=== PATIENT | male | born 1950 | race Caucasian/White ===

== ENCOUNTER 2017-06-01 14:16 | Emergency (ER) | payer MEDICARE, SELFPAY ==
[2017-06-01 14:17] VITALS: BP 170/78; PULSE 68; RESP 15; TEMP 36.8; O2SAT 97; BMI 23.8
--- NOTE | 2017-06-01 15:07 | CT_ITS ---
STUDY: CT BRAIN WITHOUT CONTRAST REASON FOR EXAM: Male, 67 years old. Dizziness following a recent fall. RADIATION DOSAGE (If Supplied By Facility): CTDIvol = ( 44.99 ) mGy, DLP = ( 728.62 ) mGycm TECHNIQUE: Transaxial CT imaging of the brain was performed without administration of intravenous contrast material. Individualized dose optimization techniques were used for this CT. COMPARISON: Comparison is made with prior study dated December 31, 2014. FINDINGS: Normal soft tissue structures. Normal calvarium. There is mild cerebral atrophy with widening of the extra-axial spaces and ventricular dilatation. Normal white matter tracts of the cerebral hemispheres. Normal basal ganglia and thalami. Normal brainstem. There is mild cerebellar atrophy. There is no intracranial hemorrhage. There are no findings of an acute ischemic infarction. Normal visualized paranasal sinuses. CT/Brain/Head without Contrast IMPRESSION: Chronic involutional changes of the brain. Electronically Signed: Earl Lowe MD at 16:00 EST Tel [phone], Service support ,
--- NOTE | 2017-06-01 15:07 | EKG12_ITS ---
Test Reason : CP Blood Pressure : / mmHG Vent. Rate : 060 BPM Atrial Rate : 060 BPM P-R Int : 142 ms QRS Dur : 110 ms QT Int : 420 ms P-R-T Axes : 076 056 045 degrees QTc Int : 420 ms Sinus rhythm with Premature atrial complexes Otherwise normal ECG Confirmed by AFSHIN MARTINEZ, WALT ([id number]), editor newspaper SURYA ACEVES ([id number]) on 06/07/2017 1:54:30 PM Referred By: DMITRY Confirmed By:WALT PEPE MD
--- NOTE | 2017-06-01 15:11 | ED.VISSUMM ---
- ER Visit Summary Date of Service: 06/01/17 Chief Complaint: Dizziness History of Present Illness: The patient is a 67 M presenting with dizziness and spinning sensation. He states it started when he woke up this morning. It is worse when he turns his head or stands. He felt off balance with walking. He denies any numbness or weakness. Denies any vision or speech changes. Denies headache. Denies chest pain or shortness of breath. Denies syncope. He states he has had right ear pain for the past 3 days and thought that this was related. He went to urgent care and they advised him to come to the ED for further evaluation. Physical Examination: Vitals are stable. Patient is afebrile. Alert no acute distress. HEENT exam is unremarkable. TM normal bilaterally Neck is supple. Lungs are clear and equal bilaterally. Heart is regular rate and rhythm. Abdomen is soft nontender nondistended. Extremities are unremarkable. Skin is warm and dry. No focal neurologic deficit. NIH 0 Remainder of exam is unremarkable. Emergency Department Course and Treatment: He was given meclizine p.o. Orthostatics are negative. CBC, chemistries are unremarkable. Troponin is negative. EKG is sinus rhythm rate of 60. CT head shows chronic changes. Patient is feeling improved following meclizine. He is able to ambulate and turn his head without any difficulty. He is given a prescription for meclizine. He is advised to follow up with his primary care physician. Advised return to ED if worsening complaints. Disposition: Discharge home Impression: Positional vertigo This note was generated with [employer] dictation software. It may contain incorrect words, spelling, and punctuation that were not noted in review of the chart prior to signing ED Disposition - Plan for ED Patient: Chief Complaint: Dizziness Referrals: Rudy Delgado MD [Primary Care Provider] -
[2017-06-01 15:35] VITALS: PULSE 55; RESP 15; O2SAT 97
[2017-06-01] MEDS: Meclizine 12.5 MG Tablet 25 MG PO (15:36)
[2017-06-01 15:42] LABS: Absolute Lymphocyte Count 1.05 X10^3/ul (0.83-4.51); Absolute Neutrophil Count 4.5 X10^3/uL (2.0-7.7); Basophil# 0.03 X10^3/uL; Basophil% 0.5 % (0-1); Eosinophil# 0.18 X10^3/uL; Eosinophils% 2.7 % (0-5); Hematocrit 38.9 % (40-54); Hemoglobin 13.1 g/dl (13.0-16.5); Lymphocyte # 1.05 X10^3/ul (4.0); Lymphocyte % 15.8 % (19-41); Mean Corp Hgb Conc 33.7 g/gl (32-36); Mean Corpuscular Hgb 29.8 pg (27.0-32.0); Mean Corpuscular Volume 88.4 fL (80-94); Mean Platelet Vol. 10.4 fl (6.2-12.0); Monocyte# 0.84 X10^3/uL; Monocyte% 12.7 % (0-10); Neutrophil # 4.52 X10^3/uL (2.7-7.7); Platelet Count 212 K/mm3 (150-450); RBC Distribution Width CV 13.2 % (11.6-14.6); White Blood Count 6.6 K/mm3 (4.4-11.0)
[2017-06-01 15:56] LABS: Anion Gap 5 (5-15); BUN 18 mg/dL (7-18); BUN/Creat Ratio 16.8 RATIO (10-20); Calcium,Total 8.7 mg/dL (8.5-10.1); Chloride 108 mmol/L (98-107); Creatinine, Serum 1.07 mg/dL (0.70-1.30); EST Glomerular Filtration Rate 73 mL/min (>60); Est Glom Filt Rate - Afr Amer 88 mL/min (>60); Estimated Creatinine Clearance 63.93 ml/min; Glucose 83 mg/dL (74-106); Sodium Level 141 mmol/L (136-145)
[2017-06-01 16:00] LABS: POSITIVE COUNT NO; POSITIVE DIFFERENTIAL NO; POSITIVE MORPHOLOGY NO
[2017-06-01 16:04] VITALS: BP 148/77; BP 152/84; BP 160/97; PULSE 55; PULSE 57; PULSE 62
--- NOTE | 2017-06-01 16:25 | ED.DEP ---
ED Disposition - Plan for ED Patient: Chief Complaint: Dizziness Instructions: ED BPV Vertigo Prescriptions: Meclizine HCl [Antivert] 25 mg PO 4X/DAY PRN PRN 3 Days #12 tablet PRN Reason: Vertigo Referrals: Rudy Delgado MD [Primary Care Provider] -
[2017-06-01 16:32] VITALS: BP 157/71; PULSE 55; RESP 16; O2SAT 97
== END 2017-06-01 16:39 | disposition home or self-care (01) ==
LOC: ED 16:39
PROVIDERS: Emergency Provider Emergency Medicine
DX: H81.10 Benign paroxysmal vertigo, unspecified ear (principal); J44.9 Chronic obstructive pulmonary disease, unspecified; E78.00 Pure hypercholesterolemia, unspecified; G25.81 Restless legs syndrome
CPT/HCPCS: 70450; 80048; 84484; 85025; 93005; 99284; J7030; J7040; A4216

== ENCOUNTER 2018-02-26 16:44 | Emergency (ER) | payer MEDICARE, SELFPAY ==
[2018-02-26 16:45] VITALS: BP 166/91; PULSE 76; RESP 16; TEMP 35.9; O2SAT 95; BMI 24.2
--- NOTE | 2018-02-26 17:16 | CT_ITS ---
STUDY: CT ABDOMEN AND PELVIS WITHOUT CONTRAST REASON FOR EXAM: Male, 67 years old. Right flank pain x6 days RADIATION DOSAGE (If Supplied By Facility): CTDIvol = ( 7.00 ) mGy, DLP = ( 342.94 ) mGycm TECHNIQUE: Transaxial images were obtained from the dome of the diaphragm to the symphysis pubis without oral contrast, and without intravenous contrast. Sagittal and coronal images were reconstructed. Individualized dose optimization techniques were used for this CT. COMPARISON: None. FINDINGS: Visualized lung bases show underlying emphysema with bleb formation. The visualized portions of the heart are within normal limits. Normal liver. Normal gallbladder and extrahepatic biliary system. Normal spleen. Normal pancreas. Normal bilateral adrenal glands. Normal right kidney. Normal left kidney. Normal visualized stomach. Nondistended fluid-filled small bowel loops are noted consistent with ileus. Normal colon. The appendix is visualized and appears normal. Appendix best seen on coronal recon image 57 There is diffuse atherosclerotic calcification of the abdominal aorta, without a demonstrated aneurysm. Normal inferior vena cava. Normal retroperitoneum. Normal urinary bladder. There are prostatic calcifications. Normal abdominal wall. There are diffuse degenerative changes of the visualized lumbar spine. CT/Abdomen/Pelvis without Cont IMPRESSION: No obstructive uropathy. Small bowel ileus No suspicious solid organ abnormality No CT evidence of an acute inflammatory process, normal appendix visualized Underlying emphysema Electronically Signed: Bipin Raman MD at 17:57 EST , Service support ,
--- NOTE | 2018-02-26 17:19 | ED.DCSUM_ITS ---
- ER Visit Summary Date of Service: 02/26/18 Chief Complaint: Right flank pain History of Present Illness: The patient is a 67 M who presents for 6 days of right flank pain. Patient has been having constant pain in the region of the right thoracic back with episodes of severe sharp pain. He has enlarged p rostate at baseline and has difficulty urinating, but has not noticed a change in his urinary symptoms. No hematuria. No fever, chest pain, abdominal pain, nausea or vomiting, diarrhea. No history of kidney stones. Patient has COPD and has had baseline dyspnea and cough, but no acute changes. Patient tried ibuprofen at home with some relief and 1 dose of his relatives oxycodone for episode of severe pain, which he states did not help. Physical Examination: Vital signs: afebrile, hemodynamically stable, no hypoxia on room air General: well nourished, well developed, in no distress Skin: warm, dry, no rash, no pallor HEENT: normocephalic and atraumatic; PERRL, EOMI, moist mucous membranes Cardiovascular: regular rate and rhythm without murmurs, no peripheral edema, 2+ pulses all distal extremities Respiratory: No increased work of breathing, lungs are diminished, right greater than left, with no adventitious sounds noted Abdominal: Abdomen is soft, no tenderness in the right lower quadrant with normoactive bowel sounds, no guarding or rebound, no masses, negative CVA tenderness, negative rash on the torso MSK: Moves all extremities, no deformities, normal strength Neuro: Awake and alert, oriented ?4. No facial droop, sensation and motor function intact and symmetric Test Results: Abnormal Lab Results 02/26/18 02/26/18 02/26/18 17:00 17:00 18:45 WBC 8.0 RBC 5.09 Hgb 14.9 Hct 44.5 MCV 87.4 MCH 29.3 MCHC 33.5 RDW 13.4 RDW Differential 42.8 Plt Count 241 MPV 10.0 Immature Gran % (Auto) 0.300 Neut % (Auto) 69.6 Lymph % (Auto) 18.6 L [place] % (Auto) 9.6 Eos % (Auto) 1.5 Baso % (Auto) 0.4 Absolute Neuts (auto) 5.6 Absolute Lymphs (auto) 1.49 Total Counted Not Reportable Sodium 141 Potassium 3.7 Chloride 105 Carbon Dioxide 29.0 Anion Gap 7 BUN 19 H Creatinine 0.97 Estim Creat Clear Calc 72.89 Est GFR (MDRD) Af Amer 99 Est GFR (MDRD) Non-Af 82 BUN/Creatinine Ratio 19.6 Glucose 71 L Calcium 9.1 Total Bilirubin 0.60 AST 45 H ALT 51 Alkaline Phosphatase 70 Total Protein 8.2 Albumin 4.1 Globulin 4.1 Albumin/Globulin Ratio 1.0 Urine Color Yellow Urine Clarity Clear Urine pH 6.0 Ur Specific [place] 1.020 Urine Protein 30 H Urine Glucose (UA) Normal Urine Ketones Negative Urine Occult Blood Negative Urine Nitrite Negative Urine Bilirubin Negative Urine Urobilinogen Normal Ur Leukocyte Esterase Negative Urine RBC 0 SEEN Urine WBC 0 SEEN Ur Squamous Epith Cells 0 SEEN Urine Bacteria 0 SEEN Urine Mucus 0 SEEN Clinical Impression(s) from Imaging Studies Abdomen/Pelvis CT 02/26/18 17:16 IMPRESSION: No obstructive uropathy. Small bowel ileus No suspicious solid organ abnormality No CT evidence of an acute inflammatory process, normal appendix visualized Underlying emphysema Electronically Signed: Bipin Raman MD at 17:57 EST , Service support , Medications Given Discontinued Medications Sodium Chloride () 1,000 mls @ 250 mls/hr IV .Q4H DAVIS Last Admin: 02/26/18 17:36 Dose: 250 mls/hr Ketorolac Tromethamine (Toradol) 15 mg IV X1 ONE Stop: 02/26/18 17:17 Last Admin: 02/26/18 17:36 Dose: 15 mg Emergency Department Course and Treatment: Patient presents with 6 days of right-sided flank pain, with intermittent severe episodes. Urinalysis showed no infection and no hematuria. CT flank was performed, which showed emphysematous changes of the lung bases and no sign of ureteral stone or other acute abnormality other than small bowel ileus. This reading was not consistent with patient's physical exam and complaints, as his abdomen was nontender, he is having normal bowel movements, and complaints do not seem consistent with ileus. Patient was reevaluated, and he states his job requires him to rotate his torso back and forth throughout the day, and this makes his pain worse. Patient's reevaluation does seem more musculoskeletal in nature a and is less likely to be intra-abdominal at this time. Patient had resolution of his pain with Toradol. He was walking around the room feeling much better and requesting to be discharged home. Patient was given a prescription for ibuprofen and return precautions. Discharged with symptoms resolved. Treatment Plan: [] Disposition: [] Impression: Right flank strain This note was generated with [employer] dictation software. It may contain incorrect words, spelling, and punctuation that were not noted in review of the chart prior to signing ED Disposition - Plan for ED Patient: Disposition: Home or Assisted Living Chief Complaint: Flank Pain Instructions: ED Flank Pain Uncertain Cause Prescriptions: RX: Ibuprofen 600 mg PO 4X/DAY PRN #30 tablet PRN Reason: Pain Referrals: Michael Arroyo MD [Primary Care Provider] - 3-5 Days if not improving Care Physician,No Primary [NON-STAFF] - Additional Instructions: Use ibuprofen as needed for pain. If you have any worsening of your condition or any new concerning symptoms, please return immediately to the emergency department for another evaluation.
[2018-02-26 17:36] LABS: Absolute Lymphocyte Count 1.49 X10^3/ul (0.83-4.51); Absolute Neutrophil Count 5.6 X10^3/uL (2.0-7.7); Basophil# 0.03 X10^3/uL; Basophil% 0.4 % (0-1); Eosinophil# 0.12 X10^3/uL; Eosinophils% 1.5 % (0-5); Hematocrit 44.5 % (40-54); Hemoglobin 14.9 g/dl (13.0-16.5); Lymphocyte # 1.49 X10^3/ul (4.0); Lymphocyte % 18.6 % (19-41); Mean Corp Hgb Conc 33.5 g/gl (32-36); Mean Corpuscular Hgb 29.3 pg (27.0-32.0); Mean Corpuscular Volume 87.4 fL (80-94); Monocyte# 0.77 X10^3/uL; Monocyte% 9.6 % (0-10); Neutrophil # 5.57 X10^3/uL (2.7-7.7); Neutrophil % 69.6 % (47-70); Platelet Count 241 K/mm3 (150-450); RBC Distribution Width CV 13.4 % (11.6-14.6); RBC Distribution Width SD 42.8 fl (35.1-43.9); Red Blood Count 5.09 M/mm3 (4.6-6.2)
[2018-02-26] MEDS: Ketorolac 30 MG/ML Syringe 15 MG IV (17:36)
[2018-02-26] MEDS: 0.9% Normal Saline 1,000 ML 250 ML IV (17:36)
[2018-02-26 17:38] LABS: POSITIVE COUNT NO; POSITIVE DIFFERENTIAL NO; POSITIVE MORPHOLOGY NO
[2018-02-26 17:45] LABS: AST(SGOT) 45 U/L (15-37); Alanine Aminotransfer ALT/SGPT 51 U/L (16-61); Albumin, Serum 4.1 g/dL (3.2-5.0); Alkaline Phosphatase 70 U/L (45-117); Anion Gap 7 (5-15); BUN 19 mg/dL (7-18); BUN/Creat Ratio 19.6 RATIO (10-20); Calcium,Total 9.1 mg/dL (8.5-10.1); Chloride 105 mmol/L (98-107); Creatinine, Serum 0.97 mg/dL (0.70-1.30); EST Glomerular Filtration Rate 82 mL/min (>60); Est Glom Filt Rate - Afr Amer 99 mL/min (>60); Estimated Creatinine Clearance 72.89 ml/min; Globulin 4.1 g/dL (2.2-4.2); Glucose 71 mg/dL (74-106); Potassium 3.7 mmol/L (3.5-5.1); Protein, Total 8.2 g/dL (6.4-8.2); Sodium Level 141 mmol/L (136-145)
[2018-02-26 18:49] LABS: Bacteria 0 SEEN /hpf (None Seen); Mucous, Urine 0 SEEN /hpf (<or=2+); Red Blood Cells-Urine 0 SEEN /hpf (0-5); Squamous Epithelial Cells - UA 0 SEEN /hpf (0-5); White Blood Cells 0 SEEN /hpf (0-5)
[2018-02-26 19:15] LABS: Glucose, Dipstick Normal (Normal); Ketone-Dipstick Negative (Negative); Leukocyte Esterase-Dipstick Negative /ul (Negative); Nitrite-Dipstick Negative (Negative); Occult Blood-Urine Negative /ul (Negative); Protein-Dipstick 30 mg/dl (Negative); Urine Bilirubin Dipstick Negative (Negative); Urine Urobilinogen Normal (Normal)
[2018-02-26 19:40] LABS: Color, Urine Yellow (Yellow); Urine Clarity Clear (Clear)
[2018-02-26 19:58] VITALS: BP 180/77; PULSE 67; RESP 16; O2SAT 97
--- NOTE | 2018-02-26 20:05 | ED.DEP ---
ED Disposition - Plan for ED Patient: Disposition: Home or Assisted Living Chief Complaint: Flank Pain Instructions: ED Flank Pain Uncertain Cause Prescriptions: Ibuprofen 600 mg PO 4X/DAY PRN #30 tablet PRN Reason: Pain Referrals: Care Physician,No Primary [NON-STAFF] - Michael Arroyo MD [Primary Care Provider] - 3-5 Days if not improving Additional Instructions: Use ibuprofen as needed for pain. If you have any worsening of your condition or any new concerning symptoms, please return immediately to the emergency department for another evaluation.
[2018-02-26 20:24] VITALS: BP 180/85; PULSE 67; RESP 14; O2SAT 97
== END 2018-02-26 20:25 | disposition home or self-care (01) ==
PROVIDERS: Emergency Provider Emergency Medicine; Family Provider Family Medicine; PCP Family Medicine
DX: S39.011A Strain of muscle, fascia and tendon of abdomen, initial encounter (principal); X58.XXXA Exposure to other specified factors, initial encounter; Y93.9 Activity, unspecified; Y92.89 Other specified places as the place of occurrence of the external cause; Y99.9 Unspecified external cause status; J44.9 Chronic obstructive pulmonary disease, unspecified; N40.0 Benign prostatic hyperplasia without lower urinary tract symptoms
CPT/HCPCS: 74176; 80053; 81001; 85025; 96361; 96374; 99283; J7030; A4216

== ENCOUNTER 2018-06-30 12:50 | Emergency (ER) | payer MEDICARE, SELFPAY ==
[2018-06-30 12:50] VITALS: BP 139/73; PULSE 79; RESP 23; TEMP 36.6; O2SAT 95; BMI 23.9
--- NOTE | 2018-06-30 13:08 | EKG12_ITS ---
Test Reason : CP Blood Pressure : / mmHG Vent. Rate : 068 BPM Atrial Rate : 068 BPM P-R Int : 130 ms QRS Dur : 112 ms QT Int : 386 ms P-R-T Axes : 079 067 068 degrees QTc Int : 410 ms Normal sinus rhythm Normal ECG Confirmed by JANES MARTINEZ, EASTON ([id number]), desk editor MERYL CORRIGAN ([id number]) on 07/02/2018 4:20:05 PM Referred By: RU Confirmed By:EASTON MARRERO MD
--- NOTE | 2018-06-30 13:09 | RAD_ITS ---
STUDY: X-RAY CHEST REASON FOR EXAM: Male, 68 years old. Shortness of breath TECHNIQUE: Frontal view of the chest COMPARISON: 12/31/2014 FINDINGS: The lungs are hyperinflated, but clear. There are no pleural effusions. There is no pneumothorax. The heart is normal in size. The visualized osseous structures are within normal limits. RAD/Chest 1 View (Portable) IMPRESSION: No acute thoracic pathology. Electronically Signed: Colin Diop, at 13:41 EDT Tel , Service support ,
[2018-06-30 13:30] VITALS: PULSE 72; RESP 16
[2018-06-30] MEDS: Ipratropium/Albuterol Sulfate 3 ML AMPUL.NEB INHALATION (13:30)
[2018-06-30 13:46] VITALS: BP 127/59; PULSE 65; RESP 16; O2SAT 95; O2SAT 954
[2018-06-30] MEDS: 0.9% Normal Saline 1,000 ML 150 ML IV (13:50)
[2018-06-30] MEDS: Aspirin 81 MG TAB.CHEW 324 MG PO (13:50)
[2018-06-30 13:55] LABS: Absolute Lymphocyte Count 0.59 X10^3/ul (0.83-4.51); Absolute Neutrophil Count 5.8 X10^3/uL (2.0-7.7); Basophil# 0.02 X10^3/uL; Basophil% 0.3 % (0-1); Eosinophil# 0.03 X10^3/uL; Eosinophils% 0.4 % (0-5); Hematocrit 37.2 % (40-54); Hemoglobin 12.5 g/dl (13.0-16.5); Lymphocyte # 0.59 X10^3/ul (4.0); Mean Corp Hgb Conc 33.6 g/gl (32-36); Mean Corpuscular Hgb 29.6 pg (27.0-32.0); Mean Corpuscular Volume 87.9 fL (80-94); Mean Platelet Vol. 10.3 fl (6.2-12.0); Monocyte# 1.01 X10^3/uL; Monocyte% 13.6 % (0-10); Neutrophil # 5.77 X10^3/uL (2.7-7.7); Neutrophil % 77.7 % (47-70); Platelet Count 172 K/mm3 (150-450); RBC Distribution Width CV 13.4 % (11.6-14.6); RBC Distribution Width SD 42.7 fl (35.1-43.9); Red Blood Count 4.23 M/mm3 (4.6-6.2); White Blood Count 7.4 K/mm3 (4.4-11.0)
[2018-06-30 13:56] LABS: Differential Indicated SCAN CRITERIA MET; POSITIVE COUNT NO; POSITIVE DIFFERENTIAL YES; POSITIVE MORPHOLOGY NO
[2018-06-30 14:10] LABS: Anion Gap 5 (5-15); BUN 16 mg/dL (7-18); BUN/Creat Ratio 16.3 RATIO (10-20); Calcium,Total 8.2 mg/dL (8.5-10.1); Chloride 110 mmol/L (98-107); Creatinine, Serum 0.98 mg/dL (0.70-1.30); EST Glomerular Filtration Rate 80 mL/min (>60); Est Glom Filt Rate - Afr Amer 97 mL/min (>60); Estimated Creatinine Clearance 68.83 ml/min; Glucose 91 mg/dL (74-106); Potassium 3.4 mmol/L (3.5-5.1); Sodium Level 138 mmol/L (136-145)
[2018-06-30 14:12] LABS: Differential Comment A
[2018-06-30 14:29] VITALS: BP 133/60; PULSE 69; RESP 15; O2SAT 97
--- NOTE | 2018-06-30 14:51 | ED.DCSUM_ITS ---
- ER Visit Summary Date of Service: 06/30/18 Chief Complaint: [Shortness of breath and chest pain] History of Present Illness: The patient is a 68 M [presents the emergency department with 2-day history of chest pain shortness of breath. Patient states yesterday morning he woke up and had a lot of chest discomfort that he described as pressure without any radiation. Patient felt short of breath with it. Patient states that the symptoms lasted about 20 minutes and then resolved. Patient states that since that time he has been having shortness of breath with activity. Patient also had some chills since yesterday and subjective fever. He has had a cough that at times is productive of some yellow sputum. Patient states that he has a history of COPD and just saw his prosthetic aides teacher 2 days ago and was given a clean bill of health. Patient has a history of high cholesterol also. He does not have any cardiac history. No significant family history of heart disease. Denies recent travel or surgery.] Physical Examination: [HEENT-PERRLA, EOMI. Cranial nerves II through XII grossly intact. TMs clear. Mucous membranes moist. No adenopathy. Cardiovascular-regular rate and rhythm without murmur or ectopy Lungs-clear to auscultation, chest wall stable without crepitus or subcu emphysema Abdomen-normoactive bowel sounds, soft, nontender, no rebound or rigidity, no peritoneal signs. Extremities-intact ?4, normal range of motion, normal pulses, atraumatic] Test Results: [EKG obtained on arrival for sinus rhythm with a ventricular rate of 68 bpm with no acute I segment changes. CBC with differential count 7.4, hemoglobin 12.5, hematocrit 37, platelets 172. Chemistries unremarkable. Troponin less than 0.015. Influenza was negative. Chest x-ray showed nothing acute.] Emergency Department Course and Treatment: [This point patient did receive aspirin in the emergency department and a DuoNeb. Patient states that he feels great however I did recommend admitting the patient is on concern about possible cardiac etiology for symptomatology. Patient understands my concerns however he is refusing admission. Patient is ANO x3 and is capable to make this decision. Patient does have capacity. He understands he may return to the emergency department for new or worsening symptoms.] Treatment Plan: [Patient advised to follow-up with primary care physician at the earliest possible time. Patient to return to the emergency department if persistent or worsening symptoms.] Disposition: Patient signed out AGAINST MEDICAL ADVICE [] Impression: [Chest pain Dyspnea Signed out AGAINST MEDICAL ADVICE] This note was generated with [employer] dictation software. It may contain incorrect words, spelling, and punctuation that were not noted in review of the chart prior to signing ED Disposition - Plan for ED Patient: Referrals: Michael Arroyo MD [Primary Care Provider] -
--- NOTE | 2018-06-30 14:52 | ED.DEP ---
ED Disposition - Plan for ED Patient: Instructions: Warning Signs of a Heart Attack, ED Chest Pain Atypical Unkn Cause, ED Dyspnea Shortness of Breath Referrals: Michael Arroyo MD [Primary Care Provider] - As soon as possible
[2018-06-30 15:17] VITALS: BP 128/81; PULSE 59; RESP 16; O2SAT 96
== END 2018-06-30 15:19 | disposition left against medical advice (07) ==
LOC: ED 14:01
PROVIDERS: Emergency Provider Emergency Medicine; Family Provider Family Medicine; PCP Family Medicine
DX: R07.9 Chest pain, unspecified (principal); R06.00 Dyspnea, unspecified; E78.00 Pure hypercholesterolemia, unspecified; J44.9 Chronic obstructive pulmonary disease, unspecified; Z87.891 Personal history of nicotine dependence
CPT/HCPCS: 36415; 71045; 80048; 84484; 85025; 87040; 87804; 93005; 94640; 96360; 96361; 99284; J7030

== ENCOUNTER 2018-08-05 11:37 | Emergency (ER) | payer MEDICARE, SELFPAY ==
[2018-08-05 11:38] VITALS: BP 111/66; PULSE 73; RESP 16; TEMP 36.4; O2SAT 98; BMI 23.1
--- NOTE | 2018-08-05 12:04 | RAD_ITS ---
STUDY: X-RAY CHEST REASON FOR EXAM: Male, 68 years old. Chest pain TECHNIQUE: PA and lateral views of the chest. COMPARISON: June 30, 2018 FINDINGS: There is hyperinflation of the lungs consistent with chronic obstructive lung disease (COPD). Lungs are clear. There is no demonstrated pleural abnormality. Normal size heart. Normal mediastinum and anup. Normal visualized pulmonary arteries. Normal visualized aortic arch and descending thoracic aorta. There are diffuse degenerative changes of the visualized thoracic spine. Normal visualized ribs, clavicles, and shoulders. There is no demonstrated abnormality of the visualized soft tissue structures of the upper abdomen. RAD/Chest PA and Lateral IMPRESSION: COPD. Lungs are clear. Electronically Signed: Aren Plaza DO at 12:46 EDT Tel , Service support ,
--- NOTE | 2018-08-05 12:04 | EKG12_ITS ---
Test Reason : CP Blood Pressure : / mmHG Vent. Rate : 074 BPM Atrial Rate : 074 BPM P-R Int : 130 ms QRS Dur : 110 ms QT Int : 378 ms P-R-T Axes : 073 049 058 degrees QTc Int : 419 ms Normal sinus rhythm Incomplete right bundle branch block Nonspecific ST and T wave abnormality Abnormal ECG Confirmed by AFSHIN MARTINEZ, WALT ([id number]), makeup editor VANCE PAGIE ([id number]) on 08/08/2018 1:25:07 PM Referred By: BILL Confirmed By:WALT PEPE MD
[2018-08-05 12:14] VITALS: PULSE 84; RESP 16; O2SAT 98; O2SAT 99
--- NOTE | 2018-08-05 12:15 | ED.VISSUMM ---
- ER Visit Summary Date of Service: 08/05/18 Chief Complaint: Chest pain History of Present Illness: The patient is a 68 M status post stent placement 4 days ago at [facility] with complication requiring pericardiocentesis who presents for 1 hour of chest pain. Patient was at jew at rest and developed diffuse chest discomfort. It lasted approximately 20 minutes and is currently gone. Approximately 3 hours prior to presentation patient had developed a headache and bilateral shoulder pain. The symptoms have also resolved. Patient received aspirin by EMS but was pain-free at the time of their evaluation and thus was not given any nitro. Patient denies any fever, abdominal pain, nausea vomiting or diarrhea. He had associated shortness of breath with the episode. He currently is asymptomatic. Patient has COPD, hypercholesterolemia, and coronary artery disease with the 2 recent stent placements. Patient is on Plavix and aspirin. 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 Patient does smoke marijuana daily. Physical Examination: Vital signs: afebrile, hemodynamically stable, no hypoxia on room air General: well nourished, well developed, in no distress Skin: warm, dry, no rash, no pallor HEENT: normocephalic and atraumatic; PERRL, EOMI, moist mucous membranes Cardiovascular: regular rate and rhythm without murmurs, no peripheral edema, 2+ pulses all distal extremities Respiratory: No increased work of breathing, lungs are globally diminished without any adventitious sounds noted Abdominal: Abdomen is soft, nontender with normoactive bowel sounds, no guarding or rebound, no masses MSK: Moves all extremities, no deformities, normal strength Neuro: Awake and alert, oriented ?4. No facial droop, sensation and motor function intact and symmetric Test Results: Abnormal Lab Results 08/05/18 08/05/18 08/05/18 12:10 12:10 12:10 WBC 7.9 RBC 4.21 L Hgb 12.3 L Hct 36.9 L MCV 87.6 MCH 29.2 MCHC 33.3 RDW 13.7 RDW Differential 43.6 Plt Count 323 MPV 9.7 Immature Gran % (Auto) 0.600 Neut % (Auto) 82.6 H Lymph % (Auto) 6.7 L [place] % (Auto) 8.4 Eos % (Auto) 1.4 Baso % (Auto) 0.3 Absolute Neuts (auto) 6.5 Absolute Lymphs (auto) 0.53 L Total Counted Not Reportable PT 13.8 INR 1.1 APTT 26.7 Sodium 138 Potassium 3.6 Chloride 106 Carbon Dioxide 25.0 Anion Gap 7 BUN 21 H Creatinine 1.13 Estim Creat Clear Calc 59.69 Est GFR (MDRD) Af Amer 83 Est GFR (MDRD) Non-Af 68 BUN/Creatinine Ratio 18.6 Glucose 130 H Calcium 8.7 Total Bilirubin 0.80 AST 87 H ALT 82 H Alkaline Phosphatase 65 Troponin I 1.020 H* Total Protein 7.1 Albumin 3.1 L Globulin 4.0 Albumin/Globulin Ratio 0.8 L Clinical Impression(s) from Imaging Studies Chest X-Ray 08/05/18 12:04 IMPRESSION: COPD. Lungs are clear. Electronically Signed: Aren Plaza DO at 12:46 EDT Tel , Service support , Chest CTA 08/05/18 13:51 IMPRESSION: COPD and emphysema. Negative for pulmonary edema is more thoracic aortic dissection. Lungs are clear Electronically Signed: Aren Plaza DO at 14:44 EDT Tel , Service support , Medications Given Discontinued Medications Sodium Chloride () 1,000 mls @ 250 mls/hr IV .Q4H DAVIS Last Admin: 08/05/18 12:18 Dose: 250 mls/hr Sodium Chloride () 1,000 mls @ 999 mls/hr IV .Q1H1M ONE Stop: 08/05/18 14:51 Last Admin: 08/05/18 14:03 Dose: 999 mls/hr Emergency Department Course and Treatment: Patient presents for a short episode of chest discomfort and a few hours of bilateral shoulder pain and headache, with all symptoms currently resolved. Patient states he was recently at [facility] and was discharged yesterday, with the pericardiocentesis tube removed yesterday. A bedside ultrasound performed by or showed no significant pericardial effusion. EKG was performed that showed a sinus rhythm with no ST changes. Only difference from prior EKG is T wave inversion in V3. Troponin was elevated at 1, and [facility] chart review shows patient's troponin at [facility] 3 days ago was 4. His troponin today is likely an expected progression of his troponin returning to normal. Patient had elevated creatinine of 1.3, concerning for acute dehydration. He was given IV fluids. Chest x-ray showed chronic changes and no acute process. Patient was discussed with Dr. Bang, his cable television technician at [facility], who agreed that the troponin was appropriately elevated and that his chest pain today was unlikely to be an acute cardiac event. He did not think patient needed transfer to [facility] for readmission. He did suggest ruling out pulmonary embolism since patient was in bed for several days during his treatment course. CTA showed no PE and no dissection. Patient did have an episode of dizziness with standing when he was in x-ray, but he received IV fluids for rehydration. On reevaluation he was normotensive, was still pain-free, and was feeling better. He was discharged home and is to follow-up with his cable television technician within 1-2 days. Patient will return if any further symptoms or concerns. Patient discharged home. Treatment Plan: [] Disposition: [] Impression: acute dehydration Chest pain Recent cardiac catheterization and pericardial effusion/cardiac tamponade This note was generated with [employer] dictation software. It may contain incorrect words, spelling, and punctuation that were not noted in review of the chart prior to signing ED Disposition - Plan for ED Patient: Disposition: Home or Assisted Living Instructions: ED Chest Pain Atypical Unkn Cause, ED Dizziness [facility] Referrals: Ashwin Alicea MD [STAFF PHYSICIAN] - As Needed Additional Instructions: Please call your cable television technician tomorrow to discuss your symptoms today and to also discuss your blood pressure medications and that you are concerned they are making you dizzy. Follow all discharge instructions that you were given by your cable television technician from [facility]. Continue all medications as you were prescribed unless your cable television technician or other doctors tell you to change them or stop them. If you have any worsening of your condition or any new concerning symptoms, please return immediately to the emergency department for another evaluation.
[2018-08-05] MEDS: 0.9% Normal Saline 1,000 ML 250 ML IV (12:18)
--- NOTE | 2018-08-05 12:19 | ED.DCSUM_ITS ---
- ER Visit Summary Date of Service: 08/05/18 Chief Complaint: Chest pain History of Present Illness: The patient is a 68 M status post stent placement 4 days ago at [facility] with complication requiring pericardiocentesis who presents for 1 hour of chest pain. Patient was at [facility] at rest and developed diffuse chest discomfort. It lasted approximately 20 minutes and is currently gone. Approximately 3 hours prior to presentation patient had developed a headache and bilateral shoulder pain. The symptoms have also resolved. Patient received aspirin by EMS but was pain-free at the time of their evaluation and thus was not given any nitro. Patient denies any fever, abdominal pain, nausea vomiting or diarrhea. He had associated shortness of breath with the episode. He currently is asymptomatic. Patient has COPD, hypercholesterolemia, and coronary artery disease with the 2 recent stent placements. Patient is on Plavix and aspirin. 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 Patient does smoke marijuana daily. Physical Examination: Vital signs: afebrile, hemodynamically stable, no hypoxia on room air General: well nourished, well developed, in no distress Skin: warm, dry, no rash, no pallor HEENT: normocephalic and atraumatic; PERRL, EOMI, moist mucous membranes Cardiovascular: regular rate and rhythm without murmurs, no peripheral edema, 2+ pulses all distal extremities Respiratory: No increased work of breathing, lungs are globally diminished without any adventitious sounds noted Abdominal: Abdomen is soft, nontender with normoactive bowel sounds, no guarding or rebound, no masses MSK: Moves all extremities, no deformities, normal strength Neuro: Awake and alert, oriented ?4. No facial droop, sensation and motor function intact and symmetric Test Results: Abnormal Lab Results 08/05/18 08/05/18 08/05/18 12:10 12:10 12:10 WBC 7.9 RBC 4.21 L Hgb 12.3 L Hct 36.9 L MCV 87.6 MCH 29.2 MCHC 33.3 RDW 13.7 RDW Differential 43.6 Plt Count 323 MPV 9.7 Immature Gran % (Auto) 0.600 Neut % (Auto) 82.6 H Lymph % (Auto) 6.7 L [place] % (Auto) 8.4 Eos % (Auto) 1.4 Baso % (Auto) 0.3 Absolute Neuts (auto) 6.5 Absolute Lymphs (auto) 0.53 L Total Counted Not Reportable PT 13.8 INR 1.1 APTT 26.7 Sodium 138 Potassium 3.6 Chloride 106 Carbon Dioxide 25.0 Anion Gap 7 BUN 21 H Creatinine 1.13 Estim Creat Clear Calc 59.69 Est GFR (MDRD) Af Amer 83 Est GFR (MDRD) Non-Af 68 BUN/Creatinine Ratio 18.6 Glucose 130 H Calcium 8.7 Total Bilirubin 0.80 AST 87 H ALT 82 H Alkaline Phosphatase 65 Troponin I 1.020 H* Total Protein 7.1 Albumin 3.1 L Globulin 4.0 Albumin/Globulin Ratio 0.8 L Clinical Impression(s) from Imaging Studies Chest X-Ray 08/05/18 12:04 IMPRESSION: COPD. Lungs are clear. Electronically Signed: Aren Plaza DO at 12:46 EDT Tel , Service support , Chest CTA 08/05/18 13:51 IMPRESSION: COPD and emphysema. Negative for pulmonary edema is more thoracic aortic dissection. Lungs are clear Electronically Signed: Aren Plaza DO at 14:44 EDT Tel , Service support , Medications Given Discontinued Medications Sodium Chloride () 1,000 mls @ 250 mls/hr IV .Q4H DAVIS Last Admin: 08/05/18 12:18 Dose: 250 mls/hr Sodium Chloride () 1,000 mls @ 999 mls/hr IV .Q1H1M ONE Stop: 08/05/18 14:51 Last Admin: 08/05/18 14:03 Dose: 999 mls/hr Emergency Department Course and Treatment: Patient presents for a short episode of chest discomfort and a few hours of bilateral shoulder pain and headache, with all symptoms currently resolved. Patient states he was recently at [facility] and was discharged yesterday, with the pericardiocentesis tube removed yesterday. A bedside ultrasound performed by nd showed no significant pericardi al effusion. EKG was performed that showed a sinus rhythm with no ST changes. Only difference from prior EKG is T wave inversion in V3. Troponin was elevated at 1, and Clinisync chart review shows patient's troponin at [facility] 3 days ago was 4. His troponin today is likely an expected progression of his troponin returning to normal. Patient had elevated creatinine of 1.3, concerning for acute dehydration. He was given IV fluids. Chest x-ray showed chronic changes and no acute process. Patient was discussed with Dr. Bang, his chlorobutadiene scrubber operator at [facility], who agreed that the troponin was appropriately elevated and that his chest pain today was unlikely to be an acute cardiac event. He did not think patient needed transfer to [facility] for readmission. He did suggest ruling out pulmonary embolism since patient was in bed for several days during his treatment course. CTA showed no PE and no dissection. Patient did have an episode of dizziness with standing when he was in x-ray, but he received IV fluids for rehydration. On reevaluation he was normotensive, was still pain-free, and was feeling better. He was discharged home and is to follow-up with his chlorobutadiene scrubber operator within 1-2 days. Patient will return if any further symptoms or concerns. Patient discharged home. Treatment Plan: [] Disposition: [] Impression: acute dehydration Chest pain Recent cardiac catheterization and pericardial effusion/cardiac tamponade This note was generated with [employer] dictation software. It may contain incorrect words, spelling, and punctuation that were not noted in review of the chart prior to signing ED Disposition - Plan for ED Patient: Disposition: Home or Assisted Living Instructions: ED Chest Pain Atypical Unkn Cause, ED Dizziness UKO Referrals: Ashwin Alicea MD [STAFF PHYSICIAN] - As Needed Additional Instructions: Please call your chlorobutadiene scrubber operator tomorrow to discuss your symptoms today and to also discuss your blood pressure medications and that you are concerned they are making you dizzy. Follow all discharge instructions that you were given by your chlorobutadiene scrubber operator from [facility]. Continue all medications as you were pres cribed unless your chlorobutadiene scrubber operator or other doctors tell you to change them or stop them. If you have any worsening of your condition or any new concerning symptoms, please return immediately to the emergency department for another evaluation.
[2018-08-05 12:20] LABS: Absolute Lymphocyte Count 0.53 X10^3/ul (0.83-4.51); Absolute Neutrophil Count 6.5 X10^3/uL (2.0-7.7); Basophil# 0.02 X10^3/uL; Basophil% 0.3 % (0-1); Eosinophil# 0.11 X10^3/uL; Eosinophils% 1.4 % (0-5); Hematocrit 36.9 % (40-54); Hemoglobin 12.3 g/dl (13.0-16.5); Lymphocyte # 0.53 X10^3/ul (4.0); Lymphocyte % 6.7 % (19-41); Mean Corp Hgb Conc 33.3 g/gl (32-36); Mean Corpuscular Hgb 29.2 pg (27.0-32.0); Mean Corpuscular Volume 87.6 fL (80-94); Mean Platelet Vol. 9.7 fl (6.2-12.0); Monocyte# 0.66 X10^3/uL; Monocyte% 8.4 % (0-10); Neutrophil # 6.49 X10^3/uL (2.7-7.7); Neutrophil % 82.6 % (47-70); Platelet Count 323 K/mm3 (150-450); RBC Distribution Width CV 13.7 % (11.6-14.6); RBC Distribution Width SD 43.6 fl (35.1-43.9); Red Blood Count 4.21 M/mm3 (4.6-6.2); White Blood Count 7.9 K/mm3 (4.4-11.0)
[2018-08-05 12:21] LABS: Differential Indicated SCAN CRITERIA MET; POSITIVE COUNT NO; POSITIVE DIFFERENTIAL YES; POSITIVE MORPHOLOGY NO
[2018-08-05 12:23] LABS: International Normalized Ratio 1.1; Prothrombin Time (Protime)PT. 13.8 SECONDS (11.7-14.9)
[2018-08-05 12:24] LABS: Partial Thromboplast Time 26.7 Seconds (24.1-36.2)
[2018-08-05 12:38] LABS: ALB/GLOB Ratio 0.8 RATIO (0.9-2.4); AST(SGOT) 87 U/L (15-37); Alanine Aminotransfer ALT/SGPT 82 U/L (16-61); Albumin, Serum 3.1 g/dL (3.2-5.0); Alkaline Phosphatase 65 U/L (45-117); Anion Gap 7 (5-15); BUN 21 mg/dL (7-18); BUN/Creat Ratio 18.6 RATIO (10-20); Calcium,Total 8.7 mg/dL (8.5-10.1); Chloride 106 mmol/L (98-107); Creatinine, Serum 1.13 mg/dL (0.70-1.30); EST Glomerular Filtration Rate 68 mL/min (>60); Est Glom Filt Rate - Afr Amer 83 mL/min (>60); Estimated Creatinine Clearance 59.69 ml/min; Glucose 130 mg/dL (74-106); Potassium 3.6 mmol/L (3.5-5.1); Protein, Total 7.1 g/dL (6.4-8.2); Sodium Level 138 mmol/L (136-145)
[2018-08-05 13:11] VITALS: BP 113/63; PULSE 87; RESP 16; O2SAT 98
--- NOTE | 2018-08-05 13:18 | NURSING ---
PAGED CARDIOLOGY AT [facility], DR MONTGOMERY
--- NOTE | 2018-08-05 13:43 | NURSING ---
DR WALKER TALKING TO SUZY, TRANSFER LINE , AT [facility]
--- NOTE | 2018-08-05 13:49 | NURSING ---
DR EDWARDS FOR DR WALKER
--- NOTE | 2018-08-05 13:51 | CT_ITS ---
STUDY: CTA CHEST REASON FOR EXAM: Male, 68 years old. Chest pain. RADIATION DOSAGE (If Supplied By Facility): CTDIvol = ( 12.58 ) mGy, DLP = ( 401.67 ) mGycm TECHNIQUE: The examination was performed with the intravenous administration of 100ML IV Isovue 370. Post-processing of the angiographic images was performed, with multiplanar reformation and 3D reconstruction. Individualized dose optimization techniques were used for this CT. COMPARISON: None. FINDINGS: Normal enhancement of the main pulmonary artery and right and left pulmonary arteries. Normal enhancement of the bilateral peripheral pulmonary arteries. There is no demonstrated pulmonary embolism. Normal thoracic aorta and visualized great vessels. There is no demonstrated aortic dissection. Normal heart and pericardium. Normal mediastinum. Normal hilar regions. Normal visualized trachea and bronchi. The lungs are hyper expanded, with flattening of the hemidiaphragms. Moderate emphysema throughout the lungs. No acute airspace disease. Scarring in both lung bases. Normal pleura. Normal chest wall structures. There are degenerative changes of thoracic spine. Normal visualized upper abdomen. CT/CTA Chest W/WO Contrast IMPRESSION: COPD and emphysema. Negative for pulmonary edema is more thoracic aortic dissection. Lungs are clear Electronically Signed: Aren Plaza DO at 14:44 EDT Tel , Service support ,
[2018-08-05 14:02] VITALS: BP 123/64; PULSE 88; RESP 16; O2SAT 99
[2018-08-05] MEDS: 0.9% Normal Saline 1,000 ML 999 ML IV (14:03)
--- NOTE | 2018-08-05 14:54 | NURSING ---
CALLED MEDICAL RECORDS AT [facility] ABOUT PATIENT. HAVE NOT RECEIVED RECORDS FROM HIS STAY THERE YET
[2018-08-05 15:34] VITALS: BP 137/65; PULSE 86; RESP 18; O2SAT 98
== END 2018-08-05 15:38 | disposition home or self-care (01) ==
PROVIDERS: Emergency Provider Emergency Medicine; Family Provider Family Medicine; PCP Family Medicine
DX: R07.9 Chest pain, unspecified (principal); E86.0 Dehydration; I31.3 Pericardial effusion (noninflammatory); I31.4 Cardiac tamponade; F12.90 Cannabis use, unspecified, uncomplicated; J44.9 Chronic obstructive pulmonary disease, unspecified; E78.00 Pure hypercholesterolemia, unspecified; I25.10 Atherosclerotic heart disease of native coronary artery without angina pectoris; I25.2 Old myocardial infarction; Z95.5 Presence of coronary angioplasty implant and graft; Z87.891 Personal history of nicotine dependence
CPT/HCPCS: 71046; 71275; 80053; 84484; 85025; 85610; 85730; 93005; 96360; 96361; 99284; J7030; Q9967; A4216

== ENCOUNTER → 2018-08-16 09:11 | Outpatient (CLI) | payer MEDICARE, SELFPAY ==
[2018-08-08 10:01] VITALS: BMI 22.6
--- NOTE | 2018-08-16 11:52 | PCM.CR.HP2 ---
CR - History & Physical - General Arrival date:: 08/16/18 Arrival time:: 11:52 Date of Referral:: 08/08/18 Date of CR Evaluation:: 08/16/18 Referring Physician: Dr. Karen VALENCIA Primary Diagnosis: PCI W/STENT - History of Present Cardiac Event Onset Date: Enter Onset Date of cardiac illnesses in Comment field below PTCA or coronary stenting:: Yes - 08/01/2018 Type of Symptoms:: SHARP CHEST PAINS WHICH LEAD TO A STRESS TEST BEING PERFORMED. Interventions with present event:: ABNORMAL STRESS ROVING CHANGER TO HEART CATH AND EVENTUALLY STENT Were there any complications?: NONE - Medications Home Medications: Ambulatory Orders Medication Instructions Recorded Citalopram [Celexa] 20 mg PO DAILY 12/31/14 Pramipexole Di-HCl [Pramipexole 0.25 mg PO QHS 12/31/14 Dihydrochloride] albuterol sulfate HFA 90 2 puff INHALATION Q4H PRN g 08/06/18 mcg/actuation aerosol inhaler amlodipine 10 mg tablet 10 mg PO DAILY 08/06/18 aspirin 81 mg tablet,delayed 81 mg PO DAILY 08/06/18 release gabapentin 300 mg capsule 300 mg PO TID cap 08/06/18 tizanidine 4 mg tablet 4 mg PO Q6H PRN tab 08/06/18 alfuzosin ER 10 mg tablet,extended 10 mg PO DAILY #90 tab 08/07/18 release 24 hr atorvastatin 40 mg tablet 40 mg PO DAILY 08/07/18 fluticasone fur. 100 mcg-umeclid 1 inh INHALATION DAILY 08/07/18 62.5 mcg-vilant 25 mcg inhalat.powder clopidogrel 75 mg tablet 75 mg PO DAILY #30 tab 08/08/18 - Allergies Allergies/Adverse Reactions: Allergies No Known Allergies Allergy (Verified 08/08/18 10:07) - Sleep Disorder Evaluation Hx of Sleep Apnea: No Do you snore loudly (louder than talking or can be heard through closed doors)?: No Do you often feel tired/ fatigued/ sleepy during daytime?: No - PRIOR TO STENT PLACEMENT YES; SINCE STENT HASBEEN DONE DOING MUCH BETTER. Has anyone observed you stop breathing during sleep?: No History of Hypertension (for STOP score): Yes STOP Results: Negative Advanced Directives - Advanced Directives Power of E Learning Designer: No Living Will: No Advance Directives Information Provided: Yes Advance Directives on File: No DNR Order?:: No - MOLST See MOLST form: No Past Medical History - Past Medical Illness Medical History: Past Medical History (Last Reviewed 08/08/18 @ 11:02 by Bernard Valencia MD) Colon enlargement (Chronic) Atherosclerosis of coronary artery of [place] heart without angina pectoris (Chronic) I25.10 Essential hypertension (Chronic) I10 Hyperlipidemia (Chronic) E78.5 Abnormal stress test Onset Date: ~06/30/18 R94.39 COPD (chronic obstructive pulmonary disease) J44.9 Emphysema of lung J43.9 History of anxiety Z86.59 History of depression Z86.59 History of erectile dysfunction Z87.438 History of restless legs syndrome Z86.69 Cardiac tamponade Onset Date: 07/29/18 I31.4 - Past Surgical History Surgical History: Past Surgical History (Last Reviewed 08/08/18 @ 11:02 by Bernard Valencia MD) S/P pericardiocentesis (Acute) Onset Date: 08/01/18 Z98.890 Presence of stent in coronary artery (Acute) Onset Date: 08/01/18 Z95.5 5.0 mm X 32 mm Everolimus-eluding [place] chromium stent to mid RCA, and 4.0 mm X 19 mm polytetrafluoroethylene-covered stent (to seal coronary artery perforation site) History of ankle surgery Onset Date: ~2008 Z98.890 History of colonoscopy Z98.890 2012 - Family History Summary Family History: Family History (Last Reviewed 08/08/18 @ 11:02 by Bernard Valencia MD) Mother Cancer leukemia Father Heart disease Myocardial infarction Sister COPD (chronic obstructive pulmonary disease) Brother COPD (chronic obstructive pulmonary disease) Cancer liver Social History - Smoking History Smoking Status: Former smoker Years Smokin Hx Smoking Cessation Date: 05/18/2001 Hx Tobacco Use: Yes Hx Smoking Exposure: No - Alcohol Use Alcohol Usage: No - FORMER ALCOHOL USE QUIT 2000 - Substance Abuse Hx Substance Use: Yes - 2009; FORMER USER OF CRACK/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 Recreational Activities: I am able to engage in all my recreational activities Social Environment - Status Marital Status: - Current Living Arrangements Living Environment:: Alone - HAS A FRIEND DONALD SHARES A HOUSE WITH - Children How many children do you have?: 2 Do any of your children live nearby?: Yes - Safety Do you feel safe in your surroundings?: Yes - Assistance Do you need any assistance at home?: NONE Review of Systems - Review of Systems Hints: Right click = Denies (Slash). Left click = Reports ([place]) Review of Present Symptoms: Reports: Shortness of Breath with Exertion - EVEN FEELS BREATHING HAS IMPROVED SOMEWHAT., Fatigue, Appetite - Normal, Appetite - Special Diet - WATCHING WHAT EATING, NO FAST FOODS, LESS RED MEATS NAD HAVE CHANGED DIET., Sleep - Normal. Denies: Shortness of Breath at Rest, Angina, Dizziness/Lightheadedness, Heart Arrhythmia/Irregularities, Sexual Changes - Pain Is Patient Pain Free?: Yes Pain Location: none Pain Level: 0/10 Risk Factor Assessment - Chief Complaint Chief Complaint: PATIENT PRESENTST O CR TODAY UNDER THE REFERRAL OF DR. VALENCIA. THE PATIENT RECENTLY HAD BEEN EXPERIENCING SHARP CHEST PAINS AND HAD A STRESS TEST PERFORMED WHICH WAS ABNORMAL. HE WAS LATER TAKEN TO THE [facility] FOR FURTHER DIAGNOSTIC WHICH LEAD TO A PCI INTERVENTION AND CORONARY STENT PLACEMENT. THE 68 YR OLD MALE ALSO HAS A H/O HTN, HLD, COPD. - Vital Signs Temperature: 98.7 F Respiratory Rate: 16 Pulse Ox: 94 Blood Pressure: 118/44 Nailbeds:: NORMAL COLOR - Pulse Pulse Rate: 88 Pulse Rhythm: Regular - Hypertension Blood Pressure Sitting - Left Arm: 116/42 - Obesity Height: 5 ft 8 in Weight:: 149 lb Weight in Pounds: 149.0 lbs Weight Source: Standing Scale Body Mass Index (BMI): 22.6 Nutritional Referral for Obesity: No - Physical Inactivity Physical Inactivity: Recreational activity - Risk Stratification Risk Guidelines: Lowest Risk: Risk Factor for Smoking, Risk Factor for Dyslipidemia, Risk Factor for Diabetes, Risk Factor for Obesity, Risk Factor for Hypertension, Risk Factor for Sedentary Lifestyle, Risk Factor for Depression - For Smoking Smoking Risk Guidelines: Smoking Low Risk: None or quit greater than 6 months ago. Smoking Moderate Risk: Smoker or quit 6 months or less ago. Smoking High Risk: Smoker - For Dyslipidemia Dyslipidemia Risk Guidelines: Low Risk: Moderate Risk: High Risk: 15-25% fat 25.1-29% fat >/= 30% fat. <7% sat fat 7-9% sat fat >9% sat fat. <150 mg chol 150-299 mg chol >/= 300 mg chol. LDL <100 LDL 100-129 LDL >/= 130. Chol/HDL ratio <5.0 Chol/HDL ratio 5.0-6.0 Chol/HDL ratio >6.0. Triglycerides <100 Triglycerides 100-149 Triglycerides >/= 150 - For Diabetes Mellitus Diabetes Risk Guidelines: Diabetes Low Risk: HgA1c <6.5% and/or FBG <120. Diabetes Moderate Risk: HgA1c 6.6-7.9% and/or FBG 120-180. Diabetes High Risk: HgA1c >/= 8% and/or FBG >180 - For Obesity/Overweight Obesity/Overweight Risk Guidelines: Obesity Low Risk: BMI <25.0. Obesity Moderate Risk: BMI 25-29.9. Obesity High Risk: BMI >/= 30.0 - For Hypertension Hypertension Risk Guidelines: Hypertension Low Risk: Systolic <120 and Diastolic <80. Hypertension Moderate Risk: Systolic 120-139 and Diastolic 80-89. Hypertension High Risk: Systolic >/= 140 and Diastolic >/= 90 - For Sedentary Lifestyle Sedentary Lifestyle Risk Guidelines: Sedentary Lifestyle Low Risk: >/= 1,500 kcal/week. Sedentary Lifestyle Moderate Risk: 700-1,499 kcal/week. Sedentary Lifestyle High Risk: < 700 kcal/week - For Depression Depression Risk Guidelines: Depression Low Risk: Not clinically depressed. Depression Moderate Risk: Mildly depressed. Depression High Risk: Clinically depressed - Family History Family History: Family History (Last Reviewed 08/08/18 @ 11:02 by Bernard Valencia MD) Mother Cancer Father Heart disease Myocardial infarction Sister COPD (chronic obstructive pulmonary disease) Brother COPD (chronic obstructive pulmonary disease) Cancer Motivation - Motivation to Participate On a scale of 1 to 10, how prepared are you to commit to attending program?: 10 What do you see as barriers to successfully being able to complete the program?: NONE What do you see as the benefits of succesfully completing the program? In other words, what do you hope to get out of participating in the program?: OVERALL HEALTH, ABILITY TO DO THINGS BETTER, ALOT OF BENEFITS Are there issues you are dealing with that will interfere with completing the program?: NONE Do you have a spouse or signficant other, family or friends who will help support you to complete the program?: YES
--- NOTE | 2018-08-16 11:57 | CR.HP_ITS ---
CR - History & Physical - General Arrival date:: 08/16/18 Arrival time:: 11:52 Date of Referral:: 08/08/18 Date of CR Evaluation:: 08/16/18 Referring Physician: Dr. Karen VALENCIA Primary Diagnosis: PCI W/STENT - History of Present Cardiac Event Onset Date: Enter Onset Date of cardiac illnesses in Comment field below PTCA or coronary stenting:: Yes - 08/01/2018 Type of Symptoms:: SHARP CHEST PAINS WHICH LEAD TO A STRESS TEST BEING PERFORMED. Interventions with present event:: ABNORMAL STRESS BRIDGE PAINTER TO HEART CATH AND EVENTUALLY STENT Were there any complications?: NONE - Medications Home Medications: Ambulatory Orders Medication Instructions Recorded Citalopram [Celexa] 20 mg PO DAILY 12/31/14 Pramipexole Di-HCl [Pramipexole 0.25 mg PO QHS 12/31/14 Dihydrochloride] albuterol sulfate HFA 90 2 puff INHALATION Q4H PRN g 08/06/18 mcg/actuation aerosol inhaler amlodipine 10 mg tablet 10 mg PO DAILY 08/06/18 aspirin 81 mg tablet,delayed 81 mg PO DAILY 08/06/18 release gabapentin 300 mg capsule 300 mg PO TID cap 08/06/18 tizanidine 4 mg tablet 4 mg PO Q6H PRN tab 08/06/18 alfuzosin ER 10 mg tablet,extended 10 mg PO DAILY #90 tab 08/07/18 release 24 hr atorvastatin 40 mg tablet 40 mg PO DAILY 08/07/18 fluticasone fur. 100 mcg-umeclid 1 inh INHALATION DAILY 08/07/18 62.5 mcg-vilant 25 mcg inhalat.powder clopidogrel 75 mg tablet 75 mg PO DAILY #30 tab 08/08/18 - Allergies Allergies/Adverse Reactions: Allergies No Known Allergies Allergy (Verified 08/08/18 10:07) - Sleep Disorder Evaluation Hx of Sleep Apnea: No Do you snore loudly (louder than talking or can be heard through closed doors)?: No Do you often feel tired/ fatigued/ sleepy during daytime?: No - PRIOR TO STENT PLACEMENT YES; SINCE STENT HASBEEN DONE DOING MUCH BETTER. Has anyone observed you stop breathing during sleep?: No History of Hypertension (for STOP score): Yes STOP Results: Negative Advanced Directives - Advanced Directives Power of Logistics Supply Officer: No Living Will: No Advance Directives Information Provided: Yes Advance Directives on File: No DNR Order?:: No - MOLST See MOLST form: No Past Medical History - Past Medical Illness Medical History: Past Medical History (Last Reviewed 08/08/18 @ 11:02 by Bernard Valencia MD) Colon enlargement (Chronic) Atherosclerosis of coronary artery of [place] heart without angina pectoris (Chronic) I25.10 Essential hypertension (Chronic) I10 Hyperlipidemia (Chronic) E78.5 Abnormal stress test Onset Date: ~06/30/18 R94.39 COPD (chronic obstructive pulmonary disease) J44.9 Emphysema of lung J43.9 History of anxiety Z86.59 History of depression Z86.59 History of erectile dysfunction Z87.438 History of restless legs syndrome Z86.69 Cardiac tamponade Onset Date: 07/29/18 I31.4 - Past Surgical History Surgical History: Past Surgical History (Last Reviewed 08/08/18 @ 11:02 by Bernard Valencia MD) S/P pericardiocentesis (Acute) Onset Date: 08/01/18 Z98.890 Presence of stent in coronary artery (Acute) Onset Date: 08/01/18 Z95.5 5.0 mm X 32 mm Everolimus-eluding kake chromium stent to mid RCA, and 4.0 mm X 19 mm polytetrafluoroethylene-covered stent (to seal coronary artery perforation site) History of ankle surgery Onset Date: ~2008 Z98.890 History of colonoscopy Z98.890 2012 - Family History Summary Family History: Family History (Last Reviewed 08/08/18 @ 11:02 by Bernard Valencia MD) Mother Cancer leukemia Father Heart disease Myocardial infarction Sister COPD (chronic obstructive pulmonary disease) Brother COPD (chronic obstructive pulmonary disease) Cancer liver Social History - Smoking History Smoking Status: Former smoker Years Smokin Hx Smoking Cessation Date: 05/18/2001 Hx Tobacco Use: Yes Hx Smoking Exposure: No - Alcohol Use Alcohol Usage: No - FORMER ALCOHOL USE QUIT 2000 - Substance Abuse Hx Substance Use: Yes - 2009; 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 Recreational Activities: I am able to engage in all my recreational activities Social Environment - Status Marital Status: - Current Living Arrangements Living Environment:: Alone - HAS A FRIEND DONALD SHARES A HOUSE WITH - Children How many children do you have?: 2 Do any of your children live nearby?: Yes - Safety Do you feel safe in your surroundings?: Yes - Assistance Do you need any assistance at home?: NONE Review of Systems - Review of Systems Hints: Right click = Denies (Slash). Left click = Reports (Pamunkey) Review of Present Symptoms: Reports: Shortness of Breath with Exertion - EVEN FEELS BREATHING HAS IMPROVED SOMEWHAT., Fatigue, Appetite - Normal, Appetite - Special Diet - WATCHING WHAT EATING, NO FAST FOODS, LESS RED MEATS NAD HAVE CHANGED DIET., Sleep - Normal. Denies: Shortness of Breath at Rest, Angina, Dizziness/Lightheadedness, Heart Arrhythmia/Irregularities, Sexual Changes - Pain Is Patient Pain Free?: Yes Pain Location: none Pain Level: 0/10 Risk Factor Assessment - Chief Complaint Chief Complaint: PATIENT PRESENTST O CR TODAY UNDER THE REFERRAL OF DR. VALENCIA. THE PATIENT RECENTLY HAD BEEN EXPERIENCING SHARP CHEST PAINS AND HAD A STRESS TEST PERFORMED WHICH WAS ABNORMAL. HE WAS LATER TAKEN TO THE HEMATOLOGY SPECIALIST FOR FURTHER DIAGNOSTIC WHICH LEAD TO A PCI INTERVENTION AND CORONARY STENT PLACEMENT. THE 68 YR OLD MALE ALSO HAS A H/O HTN, HLD, COPD. - Vital Signs Temperature: 98.7 F Respiratory Rate: 16 Pulse Ox: 94 Blood Pressure: 118/44 Nailbeds:: NORMAL COLOR - Pulse Pulse Rate: 88 Pulse Rhythm: Regular - Hypertension Blood Pressure Sitting - Left Arm: 116/42 - Obesity Height: 5 ft 8 in Weight:: 149 lb Weight in Pounds: 149.0 lbs Weight Source: Standing Scale Body Mass Index (BMI): 22.6 Nutritional Referral for Obesity: No - Physical Inactivity Physical Inactivity: Recreational activity - Risk Stratification Risk Guidelines: Lowest Risk: Risk Factor for Smoking, Risk Factor for Dyslipidemia, Risk Factor for Diabetes, Risk Factor for Obesity, Risk Factor for Hypertension, Risk Factor for Sedentary Lifestyle, Risk Factor for Depression - For Smoking Smoking Risk Guidelines: Smoking Low Risk: None or quit greater than 6 months ago. Smoking Moderate Risk: Smoker or quit 6 months or less ago. Smoking High Risk: Smoker - For Dyslipidemia Dyslipidemia Risk Guidelines: Low Risk: Moderate Risk: High Risk: 15-25% fat 25.1-29% fat >/= 30% fat. <7% sat fat 7-9% sat fat >9% sat fat. <150 mg chol 150-299 mg chol >/= 300 mg chol. LDL <100 LDL 100-129 LDL >/= 130. Chol/HDL ratio <5.0 Chol/HDL ratio 5.0-6.0 Chol/HDL ratio >6.0. Triglycerides <100 Triglycerides 100-149 Triglycerides >/= 150 - For Diabetes Mellitus Diabetes Risk Guidelines: Diabetes Low Risk: HgA1c <6.5% and/or FBG <120. Diabetes Moderate Risk: HgA1c 6.6-7.9% and/or FBG 120-180. Diabetes High Risk: HgA1c >/= 8% and/or FBG >180 - For Obesity/Overweight Obesity/Overweight Risk Guidelines: Obesity Low Risk: BMI <25.0. Obesity Moderate Risk: BMI 25-29.9. Obesity High Risk: BMI >/= 30.0 - For Hypertension Hypertension Risk Guidelines: Hypertension Low Risk: Systolic <120 and Diastolic <80. Hypertension Moderate Risk: Systolic 120-139 and Diastolic 80-89. Hypertension High Risk: Systolic >/= 140 and Diastolic >/= 90 - For Sedentary Lifestyle Sedentary Lifestyle Risk Guidelines: Sedentary Lifestyle Low Risk: >/= 1,500 kcal/week. Sedentary Lifestyle Moderate Risk: 700-1,499 kcal/week. Sedentary Lifestyle High Risk: < 700 kcal/week - For Depression Depression Risk Guidelines: Depression Low Risk: Not clinically depressed. Depression Moderate Risk: Mildly depressed. Depression High Risk: Clinically depressed - Family History Family History: Family History (Last Reviewed 08/08/18 @ 11:02 by Bernard Valencia MD) Mother Cancer Father Heart disease Myocardial infarction Sister COPD (chronic obstructive pulmonary disease) Brother COPD (chronic obstructive pulmonary disease) Cancer Motivation - Motivation to Participate On a scale of 1 to 10, how prepared are you to commit to attending program?: 10 What do you see as barriers to successfully being able to complete the program?: NONE What do you see as the benefits of succesfully completing the program? In other words, what do you hope to get out of participating in the program?: OVERALL HEALTH, ABILITY TO DO THINGS BETTER, ALOT OF BENEFITS Are there issues you are dealing with that will interfere with completing the program?: NONE Do you have a spouse or signficant other, family or friends who will help support you to complete the program?: YES
--- NOTE | 2018-08-16 12:03 | CR.ITP_ITS ---
General Information - General Information Admitting Diagnosis: PCI W/CORONARY STENT PLACEMENT - Education/Goals Barriers to Learning: Vision Impairment Individual Counseling: Initial Assessment: Abnormal Cholesterol Levels, High Blood Pressure Cardiac Rehabilitation Goals: 1. Maintain the individual as the primary focus of care. 2. To improve the patient's quality of life. 3. Identification of cardiac risk factors and provide cardiac risk factor management. 4. Enhance the psychosocial status of the patient. 5. Reconditioning enough to allow the patient to resume customary activities. 6. Control symptoms of cardiac disease Scale for measuring improvement of personal goals: Enter appropriate number in Comments. 2 = Unchanged. 3 = Slightly Better. 4 = Moderate Improvement. 5 = Met my Goal Personal Goals: Initial Assessment: Improve energy level, Participate in home exercise program, Improve knowledge of cardiac disease, Improve muscle strength and endurance, Improve diet and eating habits (eat healthier), Control risk factors (learn risk factor modification) Exercise - Initial Assessment - Visit Date of Eval: 08/16/18 Session #:: 0 - START 08/20/2018 - Stages of Change Stages of Change:: Action - Physician Prescribed Exercise Modalities: Treadmill, Rower, Airdyne Frequency (days/week): 3x/week for 12 weeks [36 sessions] Duration (Minutes):: 30-45 Intensity: 60-80% age predicted maximum heart rate reserve METs - Progression: 0.5-1.0 MET, RPE 11-14 WEEK: 2.5 Target Heart Rate:: 98-128 - Hypertension Do any of the following apply?: Yes, Medication, Diet Resting Blood Pressure:: 118/44 - Intervention Home Exercise/Activity Goal:: Moderate Exercise 30 min/day x 5 days/wk - Education Goals:: Warm-up, RPE ELIECER Scale, S/S, Safe Exercise, Self-Monitoring - Exercise Program Goals Exercise Program Goals: Aerobic Activity >30 min Nutrition - Initial Assessment - Program Goals Nutrition Program Goals: LDL <70. Total Cholesterol <200. HDL >45. Triglycerides <150. HgbA1C <7%. BMI <25 - Visit Date of Assessment:: 08/16/18 - Stages of Change Stages of Change:: Action - Diabetes Diabetes:: No Insulin: No Non-Insulin Dependent?: No Do you monitor your blood sugar at home?: No - Weight Management Height: 5 ft 8 in Weight:: 149 lb Body Fat %:: 22.6 - Intervention Referral to dietitian:: No Referral to Diabetic Clinic:: No Will attend diet classes:: Yes - Education Gave educational materials for:: Healthy eating Tobacco - Initial Assessment - Program Goals Tobacco Program Goals: Complete smoking cessation. Attend education classes. Improve Knowledge Test score - Stage of Change Stages of Change:: Action - Learning Barriers Learning Barriers: Vision, Ready to Learn - Family Support Do you have family support?: Yes - Tobacco Use Tobacco Use: Non-smoker How long ago did you quit using tobacco products?: Greater than or equal to 6 months ago Years Smokin Do you use smokeless tobacco?: No - Intervention Smoking Cessation Referral:: No Individual Education/Counseling:: No Education Schedule Given:: Yes - Education Gave educational material for:: Coronary artery disease, Risk factors, Sexuality, Medical compliance, Cardiac A&P, Angina signs & symptoms Psychosocial - Initial Assess - Target Goals Target Goals: Assess presence or absence of depression. Using a valid screening tool, maximizes coping skills. Positive support system - Stages of Change Stages of Change:: Action - Psychosocial Test Tool Used:: HANDS Depression Questionnaire - Intervention PS - Interventions: Yes Attend Stress Management Classes, No Referral to Mental Health, No Referral to [facility] Case Management, No Referral to Physician, No Uses Stress Management Skills - LEARNED THEM IN [facility] BUT DO NOT USE THEM - Education Gave educational materials for:: Coping techniques, Signs & symptoms of depression, Stress management, Relaxation techniques - Patient/Program Goal Preventative Medication(s):: Aspirin, Clopidogrel, Beta aram, Statin/lipid - Assistive Devices Assistive Devices:: None Fall Risk Assessed:: Yes Patient Health Questionnaire Initial Assessment 1. Little interest or pleasure in doing things: Not at all 2. Feeling down, depressed, or hopeless: Not at all 3. Trouble falling or staying asleep, or sleeping too much: Several days 4. Feeling tired or having little energy: Not at all 5. Poor appetite or overeating: Not at all 6. Feeling bad about yourself -- or that you are a failure or have let yourself or your family down: Not at all 7. Trouble concentrating on things, such as reading the newspaper or watching television: Not at all 8. Moving or speaking so slowly that other people could have noticed. Or the opposite - being so fidgety or restless that you have been moving around a lot more than usual: Not at all 9. Thoughts that you would be better off , or of hurting yourself in some way: Not at all How difficult have these problems made it for you to do your work, take care of things at home, or get along with other people?: Somewhat difficult Total Score: 1 ARMAND-Q SV Test - Statements CAD is a disease of the arteries in the heart: True Examples of risk factors for heart disease: True Angina is chest pain or discomfort: True The benefits of resistance training include: True Eating more meat and dairy products: True Anti-platelet medications such as aspirin are important: True The only effective way to manage stress: False An exercise warm-up slowly increases heart rate: True Prepared, processed foods usually have high sodium: False Depression is common after a heart attack: True The statin medications lower cholesterol: False To control blood pressure, lower the amount of sodium: True If someone gets chest discomfort during walking: False Transfats are partially hydrogenated vegetable oils: False Sleep apnea that is not treated increases the risk: I Don't Know To control cholesterol, one should become a vegetarian: False Someone knows if he/she is exercising at the right level: I Don't Know Diabetes cannot be prevented with exercise & health eating: False Stress is a large risk for heart attack: I Don't Know A diet that can help lower blood pressure is rich in: True - Total Score Total Correct Responses: 12 Self-Efficacy Initial Assessment We would like to know how confident you are in doing certain activities. Please select your confidence level for:: Select your confidence level for the following using the scale 1-10 where 1 is not at all confident and 10 is totally confident. Your score is the average of all 6 responses. Fatigue: How confident are you that you can keep the fatigue caused by your disease from interfering with the things you want to do? Select Number: 6 Physical Discomfort or Pain: How confident are you that you can keep the physical discomfort or pain of your disease from interfering with the things you want to do? Select Number: 6 Emotional Distress: How confident are you that you can keep the emotional distress caused by your disease from interfering with the things you want to do? Select Number: 7 Other Symptoms or Health Problems: How confident are you that you can keep other symptoms or health problems from interfering with the things you want to do? Select Number: 5 Different Tasks and Activities: How confident are you that you can do the different tasks and activities needed to manage your health condition so as to reduce your need to see a doctor? Select Number: 5 Medication: How confident are you that you can do things other than just taking medication to reduce how much your illness affects your everyday life? Select Number: 7 Total Score:: 6 Nutrition Survey - Nutrition Survey Instructions Scoring Instructions: Scoring is as follows: Yes = 1 points. No = 0 point. Patient score that is >/=12 is considered to be at potential nutritional risk and could benefit from a referral to a registered dietitian. - Nutrition Survey Initial Have you lost >10 lbs over the past 2 months without trying?: Yes Are you following a special diet at home for diabetes, low fat, or low salt?: Yes Are you interested in meeting with a dietitian for help understanding your diet?: Yes Do you eat less than 3 meals a day?: Yes Do you eat fatty meats (leos, sausage, ribs, etc), fried foods, desserts, large amounts of salad dressings, margarine, butter, or cheese most days?: No Do you have food allergies? [Enter types in comment field]: No Do you eat in restaurants more than 3 times a week?: No Do you season food with salt, seasoning salt, or garlic salt?: No Do you used canned, boxed, frozen meals, or soups, seasoning packets?: No Total Score:: 4
[2018-08-16 12:12] VITALS: BP 118/44
[2018-08-16 12:21] VITALS: BP 116/42; BP 118/44; PULSE 88; RESP 16; TEMP 37.1; O2SAT 94; BMI 22.6
== END ==
PROVIDERS: Family Provider Family Medicine; PCP Family Medicine; Referring Provider Specialist; Visit Provider Specialist
DX: Z95.5 Presence of coronary angioplasty implant and graft (principal)

== ENCOUNTER 2018-08-22 15:15 | Outpatient (RCR) | payer MEDICARE, SELFPAY ==
[2018-08-16 12:21] VITALS: BMI 22.6
== END 2018-09-14 23:59 ==
LOC: CR 15:15
PROVIDERS: Family Provider Family Medicine; PCP Family Medicine; Referring Provider Specialist; Visit Provider Specialist
DX: I25.10 Atherosclerotic heart disease of native coronary artery without angina pectoris (principal); Z95.5 Presence of coronary angioplasty implant and graft
CPT/HCPCS: 93798

== ENCOUNTER 2018-08-28 08:21 | Day surgery (SDC) | payer MEDICARE, SELFPAY ==
[2018-08-27 14:12] VITALS: BMI 22.6
[2018-08-27 16:14] LABS: Hematocrit 35.8 % (40-54); Hemoglobin 11.6 g/dl (13.0-16.5); Mean Corp Hgb Conc 32.4 g/gl (32-36); Mean Corpuscular Hgb 28.7 pg (27.0-32.0); Mean Corpuscular Volume 88.6 fL (80-94); RBC Distribution Width CV 13.7 % (11.6-14.6); Red Blood Count 4.04 M/mm3 (4.6-6.2); White Blood Count 7.2 K/mm3 (4.4-11.0)
[2018-08-27 16:15] LABS: Absolute Neutrophil Count 5.4 X10^3/uL (2.0-7.7); Basophil# 0.03 X10^3/uL; Basophil% 0.4 % (0-1); Eosinophil# 0.23 X10^3/uL; Eosinophils% 3.2 % (0-5); Lymphocyte % 11.1 % (19-41); Mean Platelet Vol. 9.6 fl (6.2-12.0); Monocyte# 0.72 X10^3/uL; Neutrophil # 5.37 X10^3/uL (2.7-7.7); Neutrophil % 74.7 % (47-70); POSITIVE COUNT NO; POSITIVE DIFFERENTIAL NO; POSITIVE MORPHOLOGY NO; Platelet Count 247 K/mm3 (150-450); RBC Distribution Width SD 43.1 fl (35.1-43.9)
[2018-08-27 16:24] VITALS: BMI 22.6
[2018-08-27 16:30] LABS: Anion Gap 6 (5-15); BUN 16 mg/dL (7-18); BUN/Creat Ratio 19.2 RATIO (10-20); Calcium,Total 8.9 mg/dL (8.5-10.1); Chloride 108 mmol/L (98-107); Creatinine, Serum 0.83 mg/dL (0.70-1.30); EST Glomerular Filtration Rate 97 mL/min (>60); Est Glom Filt Rate - Afr Amer 118 mL/min (>60); Glucose 88 mg/dL (74-106); Sodium Level 140 mmol/L (136-145)
[2018-08-28 12:46] LABS: Blood Gas Specimen Type VEN; VBG BASE EXCESS -3 mmol/L (-1.0-3.5); VBG Bicarbonate 23 mmol/L (22-26); VBG Oxygen Content 24 mmol/L (23-33); VBG PO2 47 mmHg (25-40); VBG SO2 81 % (50-70); VBG pCO2 39.2 mmHg (41-51); VBG pH 7.37 (7.32-7.42)
[2018-08-28 12:46] LABS: Blood Gas Specimen Type VEN; VBG BASE EXCESS -3 mmol/L (-1.0-3.5); VBG Bicarbonate 22 mmol/L (22-26); VBG Oxygen Content 24 mmol/L (23-33); VBG PO2 44 mmHg (25-40); VBG SO2 79 % (50-70); VBG pCO2 38.7 mmHg (41-51); VBG pH 7.37 (7.32-7.42)
[2018-08-28 12:46] LABS: Blood Gas Specimen Type VEN; VBG BASE EXCESS -3 mmol/L (-1.0-3.5); VBG Bicarbonate 22 mmol/L (22-26); VBG Oxygen Content 23 mmol/L (23-33); VBG PO2 36 mmHg (25-40); VBG SO2 67 % (50-70); VBG pCO2 39.1 mmHg (41-51); VBG pH 7.36 (7.32-7.42)
[2018-08-28 12:46] LABS: Base Excess -4 mmol/L (-2 to +2); Bicarbonate 21.7 mmol/L (22-26); Blood Gas Specimen Type ART; PO2 94 mmHG (75-100); SO2 97 % (95-99); Total Carbon Dioxide 23 mmol/L; pCO2 37.4 mmHg (35-45); pH 7.37 (7.35-7.45)
--- NOTE | 2018-09-19 14:55 | CL.D_ITS ---
Patient Name: ANITA ESQUIVEL Study Date: 08/28/2018 Performing: Shravan Valencia MD Ht: 68.11 inches 173 cm : 1950 Wt: 149.91 lbs 68 kg Age: 68 Gender: male BSA: 1.81 PROCEDURE(S) PERFORMED NP96-VDT/LHC/COR CLINICAL PROFILE AND INDICATIONS Indications: Suspected CAD, Worsening Angina Heart Failure: None Stress/Imaging Stress/Image Study Performed: No CAD Presentations: Other: SOB, chest pressure Unstable angina. CONCLUSIONS Non obstructive coronary arteries Patent RCA stent. No significant aortic stenosis. Normal Right heart pressures, wedge pressure and Le ft ventricular end diasatolic pressure. RECOMMENDATIONS Risk factor modification Continue Medical therapy for CAD Consider work up for non cardiac causes of shortness of breath DESCRIPTION OF PROCEDURE The patient arrived to the procedure lab. The risks and benefits of the procedure as well as a full d escription of our services here and current unavailability of surgical backup were fully explained to the patient and/or their significant other prior to the catheterization. The Timeout was completed, verifying the correct patient and procedure. The patient's procedural site was prepped and draped in the usual fashion. Local anesthetic was given subcutaneously to right radial region with Lidocaine 2% . Local anesthetic was given subcutaneously to right groin region with Lidocaine 2%. Using a modified Seldinger technique, arterial access was obtained via the right radial artery, a 6Fr sheath was inse rted. Venous access was obtained via the right femoral vein, a 7Fr sheath was inserted. Left Coronary Artery selective angiography was performed in multiple views using a 5 Fr. JL3.5 catheter. Right Cor onary Artery selective angiography was then performed in multiple views using a 5 Fr. JR 4 catheter. LV to AO pullback pressures were then recorded. A 7Fr thermal dilution catheter was inserte d and right heart pressures were recorded, it was then advanced to PA position for cardiac outputs. O 2 saturations were then obtained. The Thermal dilution catheter was then removed.The arterial sheath was pulled and a TR Band was applied for hemostasis w/ 10ml air. The venous sheath was then pulled an d manual compression applied until hemostasis achieved CORONARY ANGIOGRAPHY DOMINANCE: Right Dominant LEFT HEART ASSESSMENT Left Ventricular Ejection Fraction: Not assessed RIGHT HEART ASSESSMENT Kg CO: 5.09 Kg CI: 2.81 PW: 12/9 10 PA: 32/7 17 RV: 32/-2 6 RA: 8 5 PVR: 110 SVR: 1132 Right Heart pressures - normal LEFT MAIN: Angiographically normal LEFT ANTERIOR DESCENDING ARTERY: PROX LAD: 30 % Stenosis CIRCUMFLEX ARTERY: Mild luminal irregularities RIGHT CORONARY ARTERY: Previously placed stent is patent MID RCA: 25 % Stenosis VALVE FINDINGS: No Aortic Valve Stenosis COMPLICATIONS No Complications PROCEDURE MEDICATIONS Versed 1 mg IV Fentanyl 50 mcg IV Oxygen: 2 L/min via nasal cannula SUMMARY OF HEMODYNAMIC DATA Time AIR REST ECG 09:54:30 AO 110/56 (77) SA 12:03:14 LV 126/-3, 19 12:09:18 LV 127/-4, 20 12:09:24 LV 132/-13, 15 12:10:05 LVp 127/-8, 19 12:10:19 AOp 114/52 (78) 12:10:24 PA 32/7 (17) PA 12:19:46 PW 12 (10) PV 12:19:58 RV 32/-2, 6 12:21:23 RA 08/22 (5) SV 12:22:06 Type SV CO (l/m) CI (l/m/ HR Time AIR REST Kg 65.30 5.09 2.81 78 09:54:30 Label % O2 Pres/Loc Time AIR REST PA 67 PA 12:41:41 AO 97 PV 12:41:45 RA 81 12:41:53 RV 79 12:41:56 Signed By Shravan Valencia MD On 08/28/2018 13:02:54 Shravan Valencia MD
== END 2018-08-28 15:04 | disposition home or self-care (01) ==
PROVIDERS: Family Provider Family Medicine; PCP Internal Medicine; Referring Provider Specialist; Visit Provider Specialist
DX: I25.10 Atherosclerotic heart disease of native coronary artery without angina pectoris (principal); I10 Essential (primary) hypertension; E78.5 Hyperlipidemia, unspecified; R06.02 Shortness of breath; R42 Dizziness and giddiness; J44.9 Chronic obstructive pulmonary disease, unspecified; F32.9 Major depressive disorder, single episode, unspecified; Z95.5 Presence of coronary angioplasty implant and graft; Z87.891 Personal history of nicotine dependence; Z79.82 Long term (current) use of aspirin
CPT/HCPCS: 36415; 80048; 82803; 85025; 93306; 93456; 99152; 99153; J7040; Q9957; Q9967; A4216; C1751; C1769; C1894; C8929

== ENCOUNTER → 2018-08-30 11:04 | Outpatient (CLI) | payer MEDICARE, SELFPAY ==
[2018-08-30 09:45] VITALS: BMI 22.6
--- NOTE | 2018-08-30 11:05 | VDUE_ITS ---
Reason For Study: swelling Left Proximal Left jugular vein is spontaneous, widely patent, phasic, with no intraluminal echogenicity noted. Left subclavian vein is spontaneous, widely patent, phasic, with no intraluminal echogenicity noted. Left Arm Left axillary vein is spontaneous, patent, phasic, competent, compressible and demonstrates augmentation. Left brachial vein is compressible. Left cephalic vein is compressible. Left basilic vein is compressible. Left Lower Arm Left radial vein is compressible. Left ulnar vein is compressible. Prelim called to Michael Murray's office. Interpretation Summary Deep veins of the left upper extremity are patent and compressible segmentally. There is no evidence of deep vein thrombosis. The superficial veins of the left upper extremity, the basilic and cephalic veins, are patent and compressible. There is no evidence of left upper extremity superficial thrombophlebitis involving the veins imaged. Ordering Physician: Michael Murray Performed By: Sergio Willett RVT ?
== END ==
PROVIDERS: Family Provider Family Medicine; PCP Internal Medicine; Referring Provider Nurse Practitioner Family; Visit Provider Nurse Practitioner Family
DX: M79.89 Other specified soft tissue disorders (principal)
CPT/HCPCS: 93971

== ENCOUNTER 2018-09-05 08:37 | Emergency (ER) | payer MEDICARE, SELFPAY ==
[2018-08-30 09:45] VITALS: BMI 22.6
[2018-09-05 08:40] VITALS: BP 156/67; PULSE 77; RESP 20; TEMP 36.6; O2SAT 99; BMI 22.6
--- NOTE | 2018-09-05 08:56 | US_ITS ---
STUDY: SCROTUM ULTRASOUND REASON FOR EXAM: Male, 68 years old. Pain/tenderness of the right testicle. TECHNIQUE: Ultrasound evaluation of the scrotum was performed with color Doppler and static joya-scale imaging. COMPARISON: None. FINDINGS: RIGHT TESTICLE INTRATESTICULAR: There is a normal size of the right testicle. The right testicle measures 3.6 cm x 3 cm x 2.5 cm. There is a homogenous echotexture. There is mild increased arterial and mild increased venous vascularity. There is no demonstrated right testicular mass or cyst. EXTRATESTICULAR: The epididymis is enlarged. The epididymis head measures 1.2 cm x 1.87 x 1.9 cm. There is increased (hyperemic) vascularity of the epididymis. There is no demonstrated epididymal cystic structure. There is a moderate size hydrocele. There is no demonstrated varicocele. There is no demonstrated extratesticular mass or cyst. LEFT TESTICLE INTRATESTICULAR: There is a normal size of the left testicle. The left testicle measures 4 cm x 2 cm x 2.6 cm. There is a homogenous echotexture. There is normal arterial and normal venous vascularity. There is no demonstrated left testicular mass or cyst. EXTRATESTICULAR: The epididymis is normal in size. The epididymis head measures 1 cm x 1.2 cm x 1 cm. There is normal vascularity of the epididymis. There is no demonstrated epididymal cystic structure. There is a small hydrocele. There is no demonstrated varicocele. There is no demonstrated extratesticular mass or cyst. US/Testicular with Arterial Flow IMPRESSION: Bilateral hydroceles more prominent on the right side. Findings suggestive of a right epididymitis. Electronically Signed: Earl Lowe, at 10:04 EDT , Service support ,
--- NOTE | 2018-09-05 08:56 | EKG12_ITS ---
Test Reason : CP Blood Pressure : / mmHG Vent. Rate : 075 BPM Atrial Rate : 075 BPM P-R Int : 130 ms QRS Dur : 106 ms QT Int : 376 ms P-R-T Axes : 073 061 019 degrees QTc Int : 419 ms Normal sinus rhythm Incomplete right bundle branch block Nonspecific T wave abnormality Abnormal ECG Confirmed by VALENTINE FAROOQ ([id number]), medical transcription editor VANCE PAIGE ([id number]) on 09/13/2018 9:23:56 AM Referred By: Michael Murray Confirmed By:VALENTINE FAROOQ
[2018-09-05] MEDS: HYDROcodone Bitartrate/Apap 5/325 Tablet PO (09:09)
[2018-09-05 09:24] LABS: Absolute Neutrophil Count 15.3 X10^3/uL (2.0-7.7); Basophil# 0.03 X10^3/uL; Basophil% 0.2 % (0-1); Eosinophil# 0.25 X10^3/uL; Eosinophils% 1.3 % (0-5); Hematocrit 37.8 % (40-54); Hemoglobin 12.3 g/dl (13.0-16.5); Lymphocyte % 6.2 % (19-41); Mean Corp Hgb Conc 32.5 g/gl (32-36); Mean Corpuscular Hgb 28.8 pg (27.0-32.0); Mean Corpuscular Volume 88.5 fL (80-94); Mean Platelet Vol. 9.5 fl (6.2-12.0); Monocyte# 2.23 X10^3/uL; Monocyte% 11.5 % (0-10); Neutrophil # 15.26 X10^3/uL (2.7-7.7); Neutrophil % 78.4 % (47-70); Platelet Count 365 K/mm3 (150-450); RBC Distribution Width SD 44.8 fl (35.1-43.9); Red Blood Count 4.27 M/mm3 (4.6-6.2); White Blood Count 19.4 K/mm3 (4.4-11.0)
[2018-09-05 09:25] LABS: Differential Indicated SCAN CRITERIA MET; POSITIVE COUNT YES; POSITIVE DIFFERENTIAL YES; POSITIVE MORPHOLOGY YES
--- NOTE | 2018-09-05 09:25 | RAD_ITS ---
STUDY: X-RAY CHEST REASON FOR EXAM: Male, 68 years old. Chest pain TECHNIQUE: Frontal and lateral views of the chest. COMPARISON: 08/05/2018 FINDINGS: The lungs are clear and expanded. There is no demonstrated pleural abnormality. Normal size heart. Normal mediastinum and anup. Normal visualized pulmonary arteries. Normal visualized aortic arch and descending thoracic aorta. Coronary artery stent. Normal visualized thoracic spine. Normal visualized ribs, clavicles, and shoulders. Remote rib trauma. There is no demonstrated abnormality of the visualized soft tissue structures of the upper abdomen. RAD/Chest PA and Lateral IMPRESSION: No acute pulmonary findings. Electronically Signed: Marck Gong MD at 10:02 EDT Tel , Service support ,
[2018-09-05 09:30] LABS: Anion Gap 5 (5-15); BUN 16 mg/dL (7-18); BUN/Creat Ratio 19.2 RATIO (10-20); Calcium,Total 8.7 mg/dL (8.5-10.1); Chloride 105 mmol/L (98-107); Creatinine, Serum 0.83 mg/dL (0.70-1.30); EST Glomerular Filtration Rate 97 mL/min (>60); Est Glom Filt Rate - Afr Amer 118 mL/min (>60); Estimated Creatinine Clearance 80.08 ml/min; Glucose 105 mg/dL (74-106); Potassium 3.7 mmol/L (3.5-5.1); Sodium Level 139 mmol/L (136-145)
--- NOTE | 2018-09-05 09:32 | ED.DCSUM_ITS ---
History of Present Illness Chief Complaint: Chest Pain Informant: Patient Onset: Yesterday Timing: Continuous Quality: Sharp Location: Right Parasternal Current Severity: Mild Maximum Severity: Moderate Worsened By: Movement of Torso Relieved By: Nothing Narrative: Patient presenting secondary to chest pain and testicular pain. Patient has a recent history of having an HI with stent placement last month. He had a diagnostic catheterization performed about a week ago. Patient states that since yesterday he has been dealing with chest pain. He reports that this is on the right side of his chest, sharp, and goes into his shoulder. Its worse with palpation and specifically with movement. Patient denies that there is any sort of injury associated with this. He did go back to work this week, and not infrequently lifts things about 20 to 30 pounds. Patient denies any lightheadedness or shortness of breath associated with this. No exertional component associated with this. Patient's initial cardiac catheterization and stenting was complicated by a pericardial effusion and required a pericardiocentesis. Patient additionally states that since yesterday's had right testicular pain. This is a continuous pain and again it is not associated with any sort of injury. Patient reports that he woke up today and noted significant swelling in his right groin. No difficulty with urination that is new although the patient does have an underlying history of BPH. Past Medical History - Allergies and Home Meds Allergies/Adverse Reactions: Allergies No Known Allergies Allergy (Verified 09/05/18 08:44) Primary Care Physician: Sharon Osorio MD [Primary Care Provider] - Smoking Status: Former smoker Review of Systems All systems negative except as indicated General: Denies: Fever Cardiovascular: Reports: Chest pain. Denies: Palpitations, Heart racing Respiratory: Denies: Dyspnea Gastrointestinal: Denies: Nausea Genitourinary: Reports: - - Right testicular pain and swelling. Denies: Dysuria, Hematuria, Frequency Skin: Denies: Rash Hematologic: Reports: Easy bruising Physical Exam Vital Signs/Narrative: Vital Signs Temp Pulse Resp BP Pulse Ox 09/05/18 08:40 98 F 77 20 H 156/67 H 99 General: Well nourished, Well developed, No Acute Distress Head: Normocephalic, Atraumatic Eyes: Perrl, EOMI. Negative for: Pale conjunctiva, Scleral icterus ENT: Moist mucous membranes, No rhinorrhea, - - Oropharynx is clear with no evidence of posterior fullness erythema or tonsillar swelling. Neck: Supple, Nontender, No JVD Cardiovascular: Regular rate, Regular rhythm, No murmurs, - - 2+ radial pulses bilaterally symmetric Respiratory: No distress, CTA bilaterally, Chest nontender, Chest tenderness - Right anterior without any evidence of deformity. Patient has a baseline clavicle deformity at the distal clavicle which she states is not new and is unchanged. No crepitus or subcutaneous emphysema noted. Abdomen: Soft, Nontender, Nondistended, Normal bowel sounds : - - Uncircumcised penis is normal. Left testicle is normal size, normal lie, and nontender and nonswollen. Right testicle and hemiscrotum shows tenderness to palpation and swelling. Testicle appears to have a normal lie. Patient has bruising from his catheterization going from his neurovascular bundle tracking down into his groin. No evidence of palpable thrill. No presentation of mass with Valsalva or hernia. Back: Nontender, Normal Inspection Extremities: Nontender, No edema, - - 2+ PT pulses bilaterally symmetric Skin: Normal color, No rash, - - Multiple areas of bruising on the patient's a gareth as well as right groin and right wrist Neurological: Alert, Oriented x3, Cranial nerves II-XII grossly intact, Normal Strength, Normal Sensation Psychological: Normal affect, Normal Mood Diagnostic/Tx/Re-eval - EKG Initial EKG Interpretation: Sinus Rhythm, - - Sinus rhythm at 75 with an incomplete right bundle branch block. Nonspecific T wave abnormalities are noted throughout, with actual improvement from her prior EKG August [id number]. - Medical Decision Making Patient presented for chest pain and testicular pain. Bedside ultrasound demonstrated a small pericardial effusion with no tamponade pathology. Patient's work-up showed the patient to have a significant leukocytosis of 19.3 with no elevation of the patient's anion gap or acidosis. Urinalysis demonstrates evidence of infection. Chest x-ray was normal per radiology, when I compared to the patient's prior chest x-ray it does seem that there is some slight enlargement of the patient's heart which would be consistent with a small pericardial effusion. Patient's troponin was negative, his chest pain is clearly reproducible with palpation and movement. I believe this likely to be musculoskeletal in etiology. Patient's white blood cell counts can be explained by the fact that he has a UTI that is nitrate positive and evidence of a hydrocele and epididymitis on ultrasound. I discussed patient's case with cardiology, who recommended a repeat echocardiogram prior to discharge. I discussed the patient's case with urology who recommended ultrasound of the patient's right groin to make sure that there is no pseudoaneurysm. I performed this at the bedside and was not able to visualize a pseudoaneurysm. Patient's urine was cultured, he will be placed on Cipro. He has a cardiology appointment this afternoon, and will follow up with urology as soon as possible. He understands signs and symptoms for which to return. Disposition: Home ED Disposition - Plan for ED Patient: Disposition: Home or Assisted Living Diagnosis: Musculoskeletal chest pain, Epididymitis, Hydrocele in adult Instructions: ED Strain Chest Wall, ED Epididymitis Prescriptions: Ciprofloxacin [Cipro] 500 mg PO BID #14 tab Referrals: Bernard Valencia MD [STAFF PHYSICIAN] - As soon as possible Ramirez Ye MD [STAFF PHYSICIAN] - As soon as possible
[2018-09-05 09:38] VITALS: BP 125/53; PULSE 71; RESP 17; O2SAT 97
[2018-09-05 09:48] LABS: Platelet Estimate ADEQUATE (ADEQ); Red Cell Morphology NORM C+C NORMAL (NORM C&C)
[2018-09-05 10:00] VITALS: BP 122/67; PULSE 70; RESP 16; O2SAT 96
[2018-09-05 10:59] LABS: Mucous, Urine 0 SEEN /hpf (<or=2+)
[2018-09-05 11:00] VITALS: BP 138/64; PULSE 72; RESP 22; O2SAT 96
[2018-09-05 11:01] LABS: Color, Urine Yellow (Yellow); Glucose, Dipstick Normal (Normal); Ketone-Dipstick Negative (Negative); Leukocyte Esterase-Dipstick 500 /ul (Negative); Nitrite-Dipstick Positive (Negative); Occult Blood-Urine 250 /ul (Negative); Protein-Dipstick 30 mg/dl (Negative); Specific Gravity, Urine 1.015 (1.002-1.030); Urine Bilirubin Dipstick Negative (Negative); Urine Clarity Sl. Cloudy (Clear); Urine Urobilinogen Normal (Normal); Urine pH 6.5 (5.0 - 8.0)
[2018-09-05 11:11] LABS: Bacteria 2+ /hpf (None Seen); Red Blood Cells-Urine 25-50 SEEN /hpf (0-5); Squamous Epithelial Cells - UA 0-5 SEEN /hpf (0-5); White Blood Cells 25-50 SEEN /hpf (0-5)
--- NOTE | 2018-09-05 11:30 | ECHOCS_ITS ---
Reason For Study: CHEST PAIN Procedure This was a 2D Doppler, Color Flow transthoracic echocardiogram. The study was technically difficult. Due to COPD. Exam performed portable in ED. Left Ventricle Normal size and thickness. The estimated ejection fraction is 65 %. Normal diastology for age. No regional wall motion abnormalities noted. Right Ventricle Normal size and thickness. Normal systolic function. Atria Normal left atrium. Normal right atrium. Normal atrial septum. Mitral Valve The mitral valve is structurally normal. No prolapse or stenosis seen. Trivial mitral valve insufficiency. Tricuspid Valve Normal tricuspid valve. Trivial tricuspid valve insufficiency. Right ventricular systolic pressure estimated to be 34 mmHg. Aortic Valve Normal aortic valve. Trisinus/trileaflet aortic valve. Pulmonic Valve Normal pulmonic valve. Great Vessels Normal aortic root. Normal arch. Normal inferior vena cava. Inferior vena cava collapse with sniff. Pericardium/Pleural Trivial pericardial effusion. There are no echocardiographic indications of cardiac tamponade. Medication Diluted definity 3.0ml given slow IV push to enhance endocardial definition. MMode/2D Measurements & Calculations LVIDd: 4.1 cm IVSd: 0.97 cm Ao root diam: 2.8 cm LVIDs: 2.6 cm LVPWd: 0.97 cm RVDd: 3.5 cm FS: 36.5 % LAV(MOD-bp): 56.7 ml LA A4 area: 17.9 cm2 LA dimension(2D): 3.2 cm LAV(MOD-bp) Indexed: 31.5 ml/m2 LAV(MOD-sp2): 51.1 ml LAV(MOD-sp4): 54.5 ml RA A4 area: 16.8 cm2 Time Measurements MV mar time: 0.19 sec Doppler Measurements & Calculations MV E max wes: 90.2 cm/sec Lat Peak E' Wes: 13.8 cm/sec Med Peak E' Wes: 11.4 cm/sec MV A max wes: 75.3 cm/sec E/E' lat: 6.5 E/E' med: 7.9 MV E/A: 1.2 Ao V2 max: 131.1 cm/sec LV V1 max: 84.0 cm/sec PA V2 max: 91.1 cm/sec Ao max P.9 mmHg LV V1 max P.8 mmHg TR max wes: 254.3 cm/sec TR max P.0 mmHg Interpretation Summary The estimated ejection fraction is 65 %. Normal diastology for age. Trivial mitral valve insufficiency. Right ventricular systolic pressure estimated to be 34 mmHg. Trivial pericardial effusion. There are no echocardiographic indications of cardiac tamponade. Compared to echo report dated 08/28/2008, no appreciable changes noted. The study was technically difficult. Contrast injection was performed. Ordering Physician: Jerome Mitchell Referring Physician: Sharon Osorio Performed By: Kat Blunt, CODI, RVT
[2018-09-05 12:03] VITALS: BP 115/63; PULSE 65; RESP 21; O2SAT 96
[2018-09-05] MEDS: Ciprofloxacin 500 MG Tablet PO (12:18)
[2018-09-05 12:56] VITALS: PULSE 78; RESP 14; O2SAT 98
[2018-09-06 09:18] LABS: Pathologist Review Reviewed
== END 2018-09-05 13:00 | disposition home or self-care (01) ==
PROVIDERS: Emergency Provider Emergency Medicine; Family Provider Internal Medicine; PCP Internal Medicine
DX: R07.89 Other chest pain (principal); N45.1 Epididymitis; N43.3 Hydrocele, unspecified; I31.3 Pericardial effusion (noninflammatory); Z87.891 Personal history of nicotine dependence; N40.0 Benign prostatic hyperplasia without lower urinary tract symptoms; I25.2 Old myocardial infarction; Z95.5 Presence of coronary angioplasty implant and graft
CPT/HCPCS: 71046; 76870; 80048; 81001; 84484; 85025; 87077; 87086; 87088; 87186; 93005; 93306; 93976; 99284; Q9957; A4216; C8929

== ENCOUNTER → 2018-09-12 09:52 | Outpatient (CLI) | payer MEDICARE, SELFPAY ==
[2018-09-11 14:15] VITALS: BMI 22.3
[2018-09-12 09:54] LABS: Bacteria 0 SEEN /hpf (None Seen); Mucous, Urine 0 SEEN /hpf (<or=2+); White Blood Cells 0 SEEN /hpf (0-5)
[2018-09-12 13:11] LABS: Absolute Lymphocyte Count 1.43 X10^3/ul (0.83-4.51); Absolute Neutrophil Count 8.2 X10^3/uL (2.0-7.7); Basophil# 0.03 X10^3/uL; Basophil% 0.3 % (0-1); Differential Indicated SCAN CRITERIA MET; Eosinophil# 0.24 X10^3/uL; Hematocrit 35.8 % (40-54); Hemoglobin 11.6 g/dl (13.0-16.5); Lymphocyte # 1.43 X10^3/ul (4.0); Lymphocyte % 12.1 % (19-41); Mean Corp Hgb Conc 32.4 g/gl (32-36); Mean Corpuscular Hgb 28.7 pg (27.0-32.0); Mean Corpuscular Volume 88.6 fL (80-94); Mean Platelet Vol. 9.4 fl (6.2-12.0); Monocyte# 1.77 X10^3/uL; Neutrophil # 8.18 X10^3/uL (2.7-7.7); Neutrophil % 69.2 % (47-70); POSITIVE COUNT NO; POSITIVE DIFFERENTIAL YES; POSITIVE MORPHOLOGY NO; Platelet Count 341 K/mm3 (150-450); RBC Distribution Width CV 13.7 % (11.6-14.6); RBC Distribution Width SD 43.5 fl (35.1-43.9); Red Blood Count 4.04 M/mm3 (4.6-6.2); White Blood Count 11.8 K/mm3 (4.4-11.0)
[2018-09-12 13:16] LABS: Color, Urine Yellow (Yellow); Glucose, Dipstick Normal (Normal); Ketone-Dipstick Negative (Negative); Leukocyte Esterase-Dipstick Negative /ul (Negative); Nitrite-Dipstick Negative (Negative); Occult Blood-Urine 10 /ul (Negative); Protein-Dipstick 15 mg/dl (Negative); Specific Gravity, Urine 1.025 (1.002-1.030); Urine Bilirubin Dipstick Negative (Negative); Urine Clarity Clear (Clear); Urine Urobilinogen Normal (Normal)
[2018-09-12 13:33] LABS: Red Blood Cells-Urine 0-5 SEEN /hpf (0-5); Squamous Epithelial Cells - UA 0-5 SEEN /hpf (0-5)
[2018-09-13 14:27] LABS: Pathologist Review Reviewed
== END ==
PROVIDERS: Family Provider Internal Medicine; PCP Internal Medicine; Visit Provider Nurse Practitioner Family
DX: N45.1 Epididymitis (principal); R06.00 Dyspnea, unspecified
CPT/HCPCS: 36415; 81001; 85025

== ENCOUNTER 2018-09-17 08:48 | Outpatient (RCR) | payer MEDICARE, SELFPAY ==
[2018-09-15 01:15] VITALS: BMI 22.6
--- NOTE | 2018-09-17 11:34 | PCM.CR.ITP ---
General Information - General Information Admitting Diagnosis: PCI with stent - Education/Goals Cardiac Rehabilitation Goals: 1. Maintain the individual as the primary focus of care. 2. To improve the patient's quality of life. 3. Identification of cardiac risk factors and provide cardiac risk factor management. 4. Enhance the psychosocial status of the patient. 5. Reconditioning enough to allow the patient to resume customary activities. 6. Control symptoms of cardiac disease Scale for measuring improvement of personal goals: Enter appropriate number in Comments. 2 = Unchanged. 3 = Slightly Better. 4 = Moderate Improvement. 5 = Met my Goal Exercise - 30-day Assessment - Visit Date of Eval: 09/17/18 Session #:: 1 - Stages of Change Stages of Change:: Action - Physician Prescribed Exercise Modalities: Treadmill, Airdyne, NuStep Frequency (days/week): 3 Duration (Minutes):: 30-45 Intensity: 60-80% age predicted maximum heart rate reserve METs - Progression: 0.5-1.0 MET, RPE 11-14 WEEK: 3 Target Heart Rate:: 98-128 Max HR 100 - Hypertension Resting Blood Pressure:: 122/60 Peak Exercise Blood Pressure:: 158/60 - Education Goals:: Warm-up, RPE ELIECER Scale, S/S, Safe Exercise, Self-Monitoring - Exercise Program Goals Exercise Program Goals: Aerobic Activity >30 min, B/P <130/80 Nutrition - Initial Assessment - Program Goals Nutrition Program Goals: LDL <70. Total Cholesterol <200. HDL >45. Triglycerides <150. HgbA1C <7%. BMI <25 - Diabetes Do you monitor your blood sugar at home?: No Nutrition - 30-Day Assessment - Program Goals Nutrition Program Goals: LDL <70. Total Cholesterol <200. HDL >45. Triglycerides <150. HgbA1C <7%. BMI <25 - Visit Date of Eval: 09/17/18 - Stages of Change Stages of Change:: Action - Lipids Has the patient seen the dietitian?: No - Weight Management Weight:: 68.719 kg - Intervention Referral to dietitian:: No Referral to Diabetic Clinic:: No Will attend diet classes:: Yes - Education Attended class for:: Signs & symptoms of hypoglycemia, Signs & symptoms of hyperglycemia, Relate diabetes to coronary artery disease, Healthy eating Tobacco - Initial Assessment - Program Goals Tobacco Program Goals: Complete smoking cessation. Attend education classes. Improve Knowledge Test score - Learning Barriers Learning Barriers: Vision, Ready to Learn Tobacco - 30-Day Assessment - Program Goals Tobacco Program Goals: Complete smoking cessation. Attend education classes. Improve Knowledge Test score - Stage of Change Stages of Change:: Action - Learning Barriers Learning Barriers: Participates in education - Family Support Do you have family support?: Yes - Tobacco Use Tobacco Use: Non-smoker Do you use smokeless tobacco?: No - Intervention Smoking Cessation Referral:: No Individual Education/Counseling:: No Education Schedule Given:: Yes - Education Attended class for:: Tobacco triggers, Coronary artery disease, Risk factors, Sexuality, Medical compliance, Cardiac A&P, Angina signs & symptoms Psychosocial - Initial Assess - Target Goals Target Goals: Assess presence or absence of depression. Using a valid screening tool, maximizes coping skills. Positive support system - Psychosocial Test Tool Used:: HANDS Depression Questionnaire - Assistive Devices Fall Risk Assessed:: Yes Psychosocial - 30-Day Assess - Target Goals Target Goals: Assess presence or absence of depression. Using a valid screening tool, maximizes coping skills. Positive support system - Stages of Change Stages of Change:: Action - Psychosocial Test Tool Used:: HANDS Depression Questionnaire - Intervention PS - Interventions: Yes Attend Stress Management Classes, Yes Uses Stress Management Skills, No Referral to Mental Health, No Referral to [facility] Case Management, No Referral to Physician - Education Attended classes for:: Coping techniques, Signs & symptoms of depression, Stress management, Relaxation techniques - Assistive Devices Assistive Devices:: None Fall Risk Assessed:: Yes Patient Health Questionnaire 30-Day Re-eval Assessment 1. Little interest or pleasure in doing things: Not at all 2. Feeling down, depressed, or hopeless: Not at all 3. Trouble falling or staying asleep, or sleeping too much: Several days 4. Feeling tired or having little energy: Not at all 5. Poor appetite or overeating: Not at all 6. Feeling bad about yourself -- or that you are a failure or have let yourself or your family down: Not at all 7. Trouble concentrating on things, such as reading the newspaper or watching television: Not at all 8. Moving or speaking so slowly that other people could have noticed. Or the opposite - being so fidgety or restless that you have been moving around a lot more than usual: Not at all 9. Thoughts that you would be better off , or of hurting yourself in some way: Not at all How difficult have these problems made it for you to do your work, take care of things at home, or get along with other people?: Somewhat difficult Total Score: 1 Self-Efficacy 30-Day Re-eval Assessment We would like to know how confident you are in doing certain activities. Please select your confidence level for:: Select your confidence level for the following using the scale 1-10 where 1 is not at all confident and 10 is totally confident. Your score is the average of all 6 responses. Fatigue: How confident are you that you can keep the fatigue caused by your disease from interfering with the things you want to do? Select Number: 6 Physical Discomfort or Pain: How confident are you that you can keep the physical discomfort or pain of your disease from interfering with the things you want to do? Select Number: 6 Emotional Distress: How confident are you that you can keep the emotional distress caused by your disease from interfering with the things you want to do? Select Number: 7 Other Symptoms or Health Problems: How confident are you that you can keep other symptoms or health problems from interfering with the things you want to do? Select Number: 5 Different Tasks and Activities: How confident are you that you can do the different tasks and activities needed to manage your health condition so as to reduce your need to see a doctor? Select Number: 5 Medication: How confident are you that you can do things other than just taking medication to reduce how much your illness affects your everyday life? Select Number: 7 Total Score:: 6
[2018-09-17 11:40] VITALS: BP 122/60; BP 158/60
== END 2018-10-14 23:59 ==
LOC: CR 08:48
PROVIDERS: Family Provider Internal Medicine; PCP Family Medicine; Referring Provider Specialist; Visit Provider Specialist
DX: I25.10 Atherosclerotic heart disease of native coronary artery without angina pectoris (principal); Z95.5 Presence of coronary angioplasty implant and graft
CPT/HCPCS: 93798

== ENCOUNTER → 2018-09-25 08:28 | Outpatient (CLI) | payer MEDICARE, SELFPAY ==
[2018-09-11 14:15] VITALS: BMI 22.3
[2018-09-17 14:17] VITALS: BMI 22.8
[2018-09-25 08:30] VITALS: PULSE 105; PULSE 108; PULSE 109; PULSE 114; PULSE 117; PULSE 118; PULSE 119; O2SAT 91; O2SAT 92; O2SAT 93; O2SAT 94; O2SAT 96
--- NOTE | 2018-09-25 14:55 | PCM.PSN.6M ---
PSN 6 Minute Walk Test - 6 Minute Walk Test 6 Minute Walk Test: 6 Minute Walk Test PSN:6-Minute Walk Test Start: 09/25/18 09:15 Freq: Status: Active Protocol: [id number].6MINW Document 09/25/18 08:30 HG (Rec: 09/25/18 09:17 HG [id number]) 6 Minute Walk Test Date Performed 09/25/18 Time Performed 08:30 Height 5 ft 8 in Weight: 68.039 kg Weight in Pounds 150.[address]: Michael Murray Assistive device used: None Pre-test Oxygen Delivery Method Room Air Pulse Ox (%) 94 Pulse Rate (60-100 beats/min) 105 H Dyspnea Kwame Scale (0-10) 1 Exertion Kwame Scale (6-20) 8 1st minute Oxygen Delivery Method Room Air Pulse Ox (%) 93 Pulse Rate (60-100 beats/min) 109 H 2nd minute Oxygen Delivery Method Room Air Pulse Ox (%) 91 Pulse Rate (60-100 beats/min) 114 H 3rd minute Oxygen Delivery Method Room Air Pulse Ox (%) 96 Pulse Rate (60-100 beats/min) 117 H 4th minute Oxygen Delivery Method Room Air Pulse Ox (%) 93 Pulse Rate (60-100 beats/min) 117 H 5th minute Oxygen Delivery Method Room Air Pulse Ox (%) 92 Pulse Rate (60-100 beats/min) 118 H 6th minute Oxygen Delivery Method Room Air Pulse Ox (%) 93 Pulse Rate (60-100 beats/min) 119 H Post-test Oxygen Delivery Method Room Air Pulse Ox (%) 94 Pulse Rate (60-100 beats/min) 108 H Dyspnea Kwame Scale (0-10) 2 Exertion Kwame Scale (6-20) 11 Full Laps Walked 18 Partial Lap, Number of Tiles Walked 0 Total Distance Walked (ft) 1062 - Interpretation Interpretation: The patient was able to ambulate 1062 feet over the course of 6 minutes on room air with no assistive devices or breaks. The patient did have desaturation as low as 91% and a peak heart rate of 119 bpm. These findings are consistent with a cardiovascular limitation exercise tolerance. - Recommendations Recommendations: No supplemental oxygen is indicated at this time. However, patient will need to be followed closely given level of desaturation.
== END ==
LOC: PSN 08:29
PROVIDERS: Family Provider Internal Medicine; PCP Internal Medicine; Referring Provider Nurse Practitioner Family; Visit Provider Nurse Practitioner Family
DX: J44.9 Chronic obstructive pulmonary disease, unspecified (principal); R06.00 Dyspnea, unspecified
CPT/HCPCS: 94618

== ENCOUNTER → 2018-10-02 | Outpatient (CLI) | payer MEDICARE, SELFPAY ==
[2018-09-11 14:15] VITALS: BMI 22.3
[2018-09-17 14:17] VITALS: BMI 22.8
--- NOTE | 2018-10-04 08:05 | PFT ---
INTRODUCTION: The patient is a 68-year-old male that presents for pulmonary function studies secondary to a diagnosis of dyspnea. Respiratory therapy reports good patient effort. Bronchodilators were used during testing. INTERPRETATION: Forced expiration spirometry demonstrates the presence of a severe large airways obstructive ventilatory defect. There was no significant response to aerosolized bronchodilators. Spirograms are of good quality and do not plateau indicating slow emptying of the lungs. Body plethysmography was performed and revealed an elevated TLC and RV, indicative of underlying hyperinflation and air-trapping. Diffusing capacity by single breath CO is at the lower limits of normal. IMPRESSION: Irreversible severe large airways obstructive ventilatory defect with associated hyperinflation and air-trapping. Diffusing capacity is at the lower limits of normal.
== END | disposition home or self-care (01) ==
LOC: PSN 06:48
PROVIDERS: Family Provider Internal Medicine; PCP Internal Medicine; Referring Provider Nurse Practitioner Family; Visit Provider Nurse Practitioner Family
DX: J44.9 Chronic obstructive pulmonary disease, unspecified (principal); R06.00 Dyspnea, unspecified
CPT/HCPCS: 94060; 94726; 94729

== ENCOUNTER 2018-11-14 15:15 | Outpatient (RCR) | payer MEDICARE, SELFPAY ==
[2018-10-10 14:20] VITALS: BMI 21.5
[2018-10-15 00:51] VITALS: BP 122/60; BP 158/60
--- NOTE | 2018-10-17 13:08 | CR.ITP_ITS ---
Exercise - 30-day Assessment - Visit Date of Eval: 10/17/18 Session #:: 3 - Denisse released to resume CR 10/15/2018 - Stages of Change Stages of Change:: Action - Physician Prescribed Exercise Modalities: Treadmill, Airdyne, NuStep Frequency (days/week): 3 Duration (Minutes):: 30-45 Intensity: 60-80% age predicted maximum heart rate reserve METs - Progression: 0.5-1.0 MET, RPE 11-14 WEEK: 3.5 Target Heart Rate:: 98-128 with max HR 112 - Hypertension Resting Blood Pressure:: 100/70 Peak Exercise Blood Pressure:: 156/62 Medication Changes:: No - Intervention Home Exercise/Activity Goal:: Sitting Time <3 hrs/day - Education Goals:: Warm-up, RPE ELIECER Scale, S/S, Safe Exercise, Self-Monitoring - Exercise Program Goals Exercise Program Goals: Aerobic Activity >30 min - Patient is basically beginning his CR on 10/15/2018. He attended two previous sessions and due to other medical complications was on Medical Leave all of September 2018. He has since been cleared by his pulmonary and cardiac physician's to resume his CR. Nutrition - Initial Assessment - Program Goals Nutrition Program Goals: LDL <70. Total Cholesterol <200. HDL >45. Triglycerides <150. HgbA1C <7%. BMI <25 - Diabetes Do you monitor your blood sugar at home?: No Nutrition - 30-Day Assessment - Program Goals Nutrition Program Goals: LDL <70. Total Cholesterol <200. HDL >45. Triglycerides <150. HgbA1C <7%. BMI <25 - Visit Date of Eval: 10/17/18 - Stages of Change Stages of Change:: Action - Weight Management Weight:: 147 lb 8 oz - stable 1 +/- pounds - Intervention Referral to dietitian:: No Referral to Diabetic Clinic:: No Will attend diet classes:: Yes - Education Attended class for:: Healthy eating Tobacco - Initial Assessment - Program Goals Tobacco Program Goals: Complete smoking cessation. Attend education classes. Improve Knowledge Test score - Learning Barriers Learning Barriers: Vision, Ready to Learn Tobacco - 30-Day Assessment - Program Goals Tobacco Program Goals: Complete smoking cessation. Attend education classes. Improve Knowledge Test score - Stage of Change Stages of Change:: Action - Learning Barriers Learning Barriers: Participates in education, Change in behavior - Family Support Do you have family support?: Yes - Tobacco Use Tobacco Use: Non-smoker Do you use smokeless tobacco?: No - Intervention Smoking Cessation Referral:: No Individual Education/Counseling:: No Education Schedule Given:: Yes - Education Attended class for:: Coronary artery disease, Risk factors, Sexuality, Medical compliance, Cardiac A&P, Angina signs & symptoms Psychosocial - Initial Assess - Target Goals Target Goals: Assess presence or absence of depression. Using a valid screening tool, maximizes coping skills. Positive support system - Psychosocial Test Tool Used:: HANDS Depression Questionnaire - Assistive Devices Fall Risk Assessed:: Yes Psychosocial - 30-Day Assess - Target Goals Target Goals: Assess presence or absence of depression. Using a valid screening tool, maximizes coping skills. Positive support system - Stages of Change Stages of Change:: Action - Psychosocial Test Tool Used:: HANDS Depression Questionnaire - Intervention PS - Interventions: Yes Attend Stress Management Classes, Yes Uses Stress Management Skills, No Referral to Mental Health, No Referral to [facility] Case Management, No Referral to Physician - Education Attended classes for:: Coping techniques, Signs & symptoms of depression, Stress management, Relaxation techniques - Patient/Program Goal Preventative Medication(s):: Aspirin, Clopidogrel, Beta aram, Statin/lipid - Assistive Devices Assistive Devices:: None Fall Risk Assessed:: Yes Patient Health Questionnaire 30-Day Re-eval Assessment 1. Little interest or pleasure in doing things: Not at all 2. Feeling down, depressed, or hopeless: Not at all 3. Trouble falling or staying asleep, or sleeping too much: Not at all 4. Feeling tired or having little energy: Not at all 5. Poor appetite or overeating: Not at all 6. Feeling bad about yourself -- or that you are a failure or have let yourself or your family down: Not at all 7. Trouble concentrating on things, such as reading the newspaper or watching television: Not at all 8. Moving or speaking so slowly that other people could have noticed. Or the opposite - being so fidgety or restless that you have been moving around a lot more than usual: Not at all 9. Thoughts that you would be better off , or of hurting yourself in some way: Not at all Total Score: 0 Self-Efficacy 30-Day Re-eval Assessment We would like to know how confident you are in doing certain activities. Please select your confidence level for:: Select your confidence level for the following using the scale 1-10 where 1 is not at all confident and 10 is totally confident. Your score is the average of all 6 responses. Fatigue: How confident are you that you can keep the fatigue caused by your disease from interfering with the things you want to do? Select Number: 7 Physical Discomfort or Pain: How confident are you that you can keep the physical discomfort or pain of your disease from interfering with the things you want to do? Select Number: 7 Emotional Distress: How confident are you that you can keep the emotional distress caused by your disease from interfering with the things you want to do? Select Number: 8 Other Symptoms or Health Problems: How confident are you that you can keep other symptoms or health problems from interfering with the things you want to do? Select Number: 7 Different Tasks and Activities: How confident are you that you can do the different tasks and activities needed to manage your health condition so as to reduce your need to see a doctor? Select Number: 8 Medication: How confident are you that you can do things other than just taking medication to reduce how much your illness affects your everyday life? Select Number: 9 Total Score:: 7
[2018-10-17 13:14] VITALS: BP 100/70; BP 156/62
== END 2018-11-14 23:59 ==
LOC: CR 15:15
PROVIDERS: Family Provider Internal Medicine; PCP Family Medicine; Referring Provider Specialist; Visit Provider Specialist
DX: I25.10 Atherosclerotic heart disease of native coronary artery without angina pectoris (principal); Z95.5 Presence of coronary angioplasty implant and graft
CPT/HCPCS: 93798

== ENCOUNTER 2018-12-12 15:15 | Outpatient (RCR) | payer MEDICARE, SELFPAY ==
[2018-11-15 00:49] VITALS: BP 100/70; BP 156/62; BMI 21.7
--- NOTE | 2018-11-16 09:35 | CR.ITP_ITS ---
Exercise - 60-Day Assessment - Visit Date of Eval: 11/16/18 Session #:: 16 - Resumed CR on 10/15/2018 following other medical complications. - Stages of Change Stages of Change:: Action - Physician Prescribed Exercise Modalities: Treadmill, Rower, Airdyne, NuStep Frequency (days/week): 3 Duration (Minutes):: 30-45 Intensity: 60-80% age predicted maximum heart rate reserve METs - Progression: 0.5-1.0 MET, RPE 11-14 WEEK: 4.5 Target Heart Rate:: 98-128 with max HR 100 - Hypertension Resting Blood Pressure:: 128/52 - SpO2 > 93% Peak Exercise Blood Pressure:: 128/52 - SpO2 remains >90% - Intervention Home Exercise/Activity Goal:: Moderate Exercise 30 min/day x 5 days/wk - Education Goals:: Warm-up, RPE ELIECER Scale, S/S, Safe Exercise, Self-Monitoring - Exercise Program Goals Exercise Program Goals: Aerobic Activity >30 min Nutrition - Initial Assessment - Program Goals Nutrition Program Goals: LDL <70. Total Cholesterol <200. HDL >45. Triglycerides <150. HgbA1C <7%. BMI <25 - Diabetes Do you monitor your blood sugar at home?: No Nutrition - 60-Day Assessment - Program Goals Nutrition Program Goals: LDL <70. Total Cholesterol <200. HDL >45. Triglycerides <150. HgbA1C <7%. BMI <25 - Visit Date of Eval: 11/16/18 - Stages of Change Stages of Change:: Action - Lipids Has the patient seen the dietitian?: No - Diabetes Diabetes:: No - Weight Management Weight:: 150 lb - up 2.5 pounds - Intervention Referral to dietitian:: No Referral to Diabetic Clinic:: No Will attend diet classes:: Yes - Education Attended class for:: Healthy eating Tobacco - Initial Assessment - Program Goals Tobacco Program Goals: Complete smoking cessation. Attend education classes. Improve Knowledge Test score - Learning Barriers Learning Barriers: Vision, Ready to Learn Tobacco - 60-Day Assessment - Program Goals Tobacco Program Goals: Complete smoking cessation. Attend education classes. Improve Knowledge Test score - Stage of Change Stages of Change:: Action - Learning Barriers Learning Barriers: Participates in education - Family Support Do you have family support?: Yes - Tobacco Use Tobacco Use: Non-smoker Do you use smokeless tobacco?: No - Intervention Smoking Cessation Referral:: No Education Schedule Given:: Yes - Education Attended class for:: Treating Heart Disease, How The Heart Works, What it means to have Heart Disease, How Coronary Artery Disease is Diagnosed, Heart Procedures, What Heart Medications Do, Risk Factors & Modifications, Living an Active Life, Nutrition, Emotions & Heart Disease, Stress Management & Relaxation, Sleep Disorders & Heart Disease Psychosocial - Initial Assess - Target Goals Target Goals: Assess presence or absence of depression. Using a valid screening tool, maximizes coping skills. Positive support system - Psychosocial Test Tool Used:: HANDS Depression Questionnaire - Assistive Devices Fall Risk Assessed:: Yes Psychosocial - 60-Day Assess - Target Goals Target Goals: Assess presence or absence of depression. Using a valid screening tool, maximizes coping skills. Positive support system - Stages of Change Stages of Change:: Action - Psychosocial Test Tool Used:: HANDS Depression Questionnaire - Intervention PS - Interventions: Yes Attend Stress Management Classes, Yes Uses Stress Management Skills, No Referral to Mental Health, No Referral to [facility] Case Management, No Referral to Physician - Education Attended classes for:: Coping techniques, Signs & symptoms of depression, Stress management, Relaxation techniques - Patient/Program Goal Preventative Medication(s):: Aspirin, DIANA inhibitor, Clopidogrel, Beta aram, Statin/lipid - Assistive Devices Assistive Devices:: None Fall Risk Assessed:: Yes Patient Health Questionnaire 60-Day Re-eval Assessment 1. Little interest or pleasure in doing things: Not at all 2. Feeling down, depressed, or hopeless: Not at all 3. Trouble falling or staying asleep, or sleeping too much: Not at all 4. Feeling tired or having little energy: Not at all 5. Poor appetite or overeating: Not at all 6. Feeling bad about yourself -- or that you are a failure or have let yourself or your family down: Not at all 7. Trouble concentrating on things, such as reading the newspaper or watching television: Not at all 8. Moving or speaking so slowly that other people could have noticed. Or the opposite - being so fidgety or restless that you have been moving around a lot more than usual: Not at all 9. Thoughts that you would be better off , or of hurting yourself in some way: Not at all Total Score: 0 Self-Efficacy 60-Day Re-eval Assessment We would like to know how confident you are in doing certain activities. Please select your confidence level for:: Select your confidence level for the following using the scale 1-10 where 1 is not at all confident and 10 is totally confident. Your score is the average of all 6 responses. Fatigue: How confident are you that you can keep the fatigue caused by your d isease from interfering with the things you want to do? Select Number: 10 Physical Discomfort or Pain: How confident are you that you can keep the phy sical discomfort or pain of your disease from interfering with the things you want to do? Select Number: 10 Emotional Distress: How confident are you that you can keep the emotional distress caused by your disease from interfering with the things you want to do? Select Number: 10 Other Symptoms or Health Problems: How confident are you that you can keep other symptoms or health problems from interfering with the things you want to do? Select Number: 10 Different Tasks and Activities: How confident are you that you can do the different tasks and activities needed to manage your health condition so as to reduce your need to see a doctor? Select Number: 10 Medication: How confident are you that you can do things other than just taking medication to reduce how much your illness affects your everyday life? Select Number: 10 Total Score:: 10
[2018-11-16 09:40] VITALS: BP 128/52
== END 2018-12-15 23:59 ==
LOC: CR 15:15
PROVIDERS: Family Provider Internal Medicine; PCP Family Medicine; Referring Provider Specialist; Visit Provider Specialist
DX: I25.10 Atherosclerotic heart disease of native coronary artery without angina pectoris (principal); Z95.5 Presence of coronary angioplasty implant and graft
CPT/HCPCS: 93798

== ENCOUNTER 2018-12-26 15:15 | Outpatient (RCR) | payer MEDICARE, SELFPAY ==
[2018-11-15 00:49] VITALS: BMI 21.7
[2018-12-16 00:41] VITALS: BP 128/52
--- NOTE | 2018-12-21 09:11 | PCM.CR.ITP ---
Exercise - 90-Day Assessment - Visit Date of Eval: 12/21/18 Session #:: 30 - JOSE FRANCISCO HAS BEEN COMPLIANT WITH ATTENDANCE SINCE 10/15/2018 - Stages of Change Stages of Change:: Action - Physician Prescribed Exercise Modalities: Treadmill, Rower, Airdyne, NuStep Frequency (days/week): 3 Duration (Minutes):: 30-45 Intensity: 60-80% age predicted maximum heart rate reserve METs - Progression: 0.5-1.0 MET, RPE 11-14 WEEK: 5.0 REACHED MAXIMUM LEVEL DUE TO COMORBIDITY OF HIS COPD. Target Heart Rate:: 98-128 W/ MAX HR 97 - Hypertension Resting Blood Pressure:: 168/60 - SPO2 95% Peak Exercise Blood Pressure:: 168/60 - SPO2 92% Medication Changes:: No - Intervention Home Exercise/Activity Goal:: Moderate Exercise 30 min/day x 5 days/wk - Education Goals:: Warm-up, RPE ELIECER Scale, S/S, Safe Exercise, Self-Monitoring - Exercise Program Goals Exercise Program Goals: Aerobic Activity >30 min Nutrition - Initial Assessment - Program Goals Nutrition Program Goals: LDL <70. Total Cholesterol <200. HDL >45. Triglycerides <150. HgbA1C <7%. BMI <25 - Diabetes Do you monitor your blood sugar at home?: No Nutrition - 90-Day Assessment - Program Goals Nutrition Program Goals: LDL <70. Total Cholesterol <200. HDL >45. Triglycerides <150. HgbA1C <7%. BMI <25 - Visit Date of Eval: 12/21/18 - Stages of Change Stages of Change:: Action - Lipids Has the patient seen the dietitian?: No - Diabetes Diabetes:: No - Weight Management Weight:: 155 lb - UP 5 POUNDS - Intervention Referral to dietitian:: No Referral to Diabetic Clinic:: No Will attend diet classes:: Yes - Education Attended class for:: Healthy eating Tobacco - Initial Assessment - Program Goals Tobacco Program Goals: Complete smoking cessation. Attend education classes. Improve Knowledge Test score - Learning Barriers Learning Barriers: Vision, Ready to Learn Tobacco - 90-Day Assessment - Program Goals Tobacco Program Goals: Complete smoking cessation. Attend education classes. Improve Knowledge Test score - Stage of Change Stages of Change:: Action - Learning Barriers Learning Barriers: Participates in education, Change in behavior - Family Support Do you have family support?: Yes - Tobacco Use Tobacco Use: Non-smoker Do you use smokeless tobacco?: No - Intervention Smoking Cessation Referral:: No Education Schedule Given:: Yes - Education Attended class for:: Treating Heart Disease, How The Heart Works, What it means to have Heart Disease, How Coronary Artery Disease is Diagnosed, Heart Procedures, What Heart Medications Do, Risk Factors & Modifications, Living an Active Life, Nutrition, Emotions & Heart Disease, Stress Management & Relaxation, Sleep Disorders & Heart Disease Psychosocial - Initial Assess - Target Goals Target Goals: Assess presence or absence of depression. Using a valid screening tool, maximizes coping skills. Positive support system - Psychosocial Test Tool Used:: HANDS Depression Questionnaire - Assistive Devices Fall Risk Assessed:: Yes Psychosocial - 90-Day Assess - Target Goals Target Goals: Assess presence or absence of depression. Using a valid screening tool, maximizes coping skills. Positive support system - Stages of Change Stages of Change:: Action - Psychosocial Test Tool Used:: HANDS Depression Questionnaire - Intervention PS - Interventions: Yes Attend Stress Management Classes, Yes Uses Stress Management Skills, No Referral to Mental Health, No Referral to [facility] Case Management, No Referral to Physician - Education Attended classes for:: Coping techniques, Signs & symptoms of depression, Stress management, Relaxation techniques - Patient/Program Goal Preventative Medication(s):: Aspirin, DIANA inhibitor, Clopidogrel, Beta aram, Statin/lipid - Assistive Devices Assistive Devices:: None Fall Risk Assessed:: Yes Patient Health Questionnaire 90-Day Re-eval Assessment 1. Little interest or pleasure in doing things: Not at all 2. Feeling down, depressed, or hopeless: Not at all 3. Trouble falling or staying asleep, or sleeping too much: Not at all 4. Feeling tired or having little energy: Not at all 5. Poor appetite or overeating: Not at all 6. Feeling bad about yourself -- or that you are a failure or have let yourself or your family down: Not at all 7. Trouble concentrating on things, such as reading the newspaper or watching television: Not at all 8. Moving or speaking so slowly that other people could have noticed. Or the opposite - being so fidgety or restless that you have been moving around a lot more than usual: Not at all 9. Thoughts that you would be better off , or of hurting yourself in some way: Not at all How difficult have these problems made it for you to do your work, take care of things at home, or get along with other people?: Not difficult at all Total Score: 0 Self-Efficacy 90-Day Re-eval Assessment We would like to know how confident you are in doing certain activities. Please select your confidence level for:: Select your confidence level for the following using the scale 1-10 where 1 is not at all confident and 10 is totally confident. Your score is the average of all 6 responses. Fatigue: How confident are you that you can keep the fatigue caused by your disease from interfering with the things you want to do? Select Number: 10 Physical Discomfort or Pain: How confident are you that you can keep the physical discomfort or pain of your disease from interfering with the things you want to do? Select Number: 10 Emotional Distress: How confident are you that you can keep the emotional distress caused by your disease from interfering with the things you want to do? Select Number: 10 Other Symptoms or Health Problems: How confident are you that you can keep other symptoms or health problems from interfering with the things you want to do? Select Number: 10 Different Tasks and Activities: How confident are you that you can do the different tasks and activities needed to manage your health condition so as to reduce your need to see a doctor? Select Number: 10 Medication: How confident are you that you can do things other than just taking medication to reduce how much your illness affects your everyday life? Select Number: 10 Total Score:: 10
[2018-12-21 09:16] VITALS: BP 168/60
== END 2019-01-14 23:59 ==
LOC: CR 15:15
PROVIDERS: Family Provider Internal Medicine; PCP Family Medicine; Referring Provider Specialist; Visit Provider Specialist
DX: I25.10 Atherosclerotic heart disease of native coronary artery without angina pectoris (principal); Z95.5 Presence of coronary angioplasty implant and graft
CPT/HCPCS: 93798

== ENCOUNTER → 2019-03-25 14:33 | Outpatient (CLI) | payer MEDICARE, SELFPAY ==
[2019-03-25 14:01] VITALS: BMI 22.7
[2019-03-25 15:43] LABS: Absolute Lymphocyte Count 1.09 X10^3/uL (0.83-4.51); Absolute Neutrophil Count 5.9 X10^3/uL (2.0-7.7); Basophil# 0.05 X10^3/uL; Basophil% 0.6 % (0-1); Eosinophil# 0.16 X10^3/uL; Eosinophils% 1.9 % (0-5); Hematocrit 35.3 % (40-54); Lymphocyte # 1.09 X10^3/ul (4.0); Lymphocyte % 13.3 % (19-41); Mean Corp Hgb Conc 31.2 g/dL (32-36); Mean Corpuscular Hgb 25.5 pg (27.0-32.0); Mean Corpuscular Volume 81.9 fL (80-94); Mean Platelet Vol. 9.5 fl (6.2-12.0); Monocyte# 0.95 X10^3/uL; Monocyte% 11.6 % (0-10); NRBC Flagged by Analyzer 0 % (0-5); Neutrophil # 5.93 X10^3/uL (2.7-7.7); Neutrophil % 72.2 % (47-70); Platelet Count 325 K/mm3 (150-450); RBC Distribution Width CV 13.8 % (11.6-14.6); RBC Distribution Width SD 41.3 fl (35.1-43.9); Red Blood Count 4.31 M/mm3 (4.6-6.2); White Blood Count 8.2 K/mm3 (4.4-11.0)
[2019-03-29 09:07] LABS: Alternaria alternata <0.10 kU/L (Class 0); Bermuda Grass 0.39 kU/L (Class I); Cat Hair/Dander, Standard <0.10 kU/L (Class 0); D farinae Mite 0.15 kU/L (Class 0/I); D pteronyssinus <0.10 kU/L (Class 0); Dog Epithelia 0.18 kU/L (Class 0/I); Elm, American White 0.42 kU/L (Class I); Oak, White 0.42 kU/L (Class I); Plantain, English 0.39 kU/L (Class I); Ragweed, Short/Common 0.44 kU/L (Class I)
[2019-03-29 11:19] LABS: Mouse Urine <0.10 kU/L (Class 0)
[2019-03-29 20:07] LABS: Aspirgillus flavus Negative (Neg:<1:1); Aspirgillus fumigatus Negative (Neg:<1:1); Aspirgillus niger Negative (Neg:<1:1)
[2019-03-31 11:36] LABS: Immunoglobulin E 61 IU/mL (6-495)
== END ==
LOC: LAB 14:35
PROVIDERS: Nurse Practitioner Acute Care; Family Provider Internal Medicine; PCP Internal Medicine; Referring Provider Internal Medicine; Visit Provider Internal Medicine
DX: R06.02 Shortness of breath (principal); R06.2 Wheezing
CPT/HCPCS: 36415; 82785; 85025; 86003; 86606

== ENCOUNTER → 2019-04-30 13:27 | Outpatient (CLI) | payer MEDICARE, SELFPAY ==
[2019-04-29 16:21] VITALS: BMI 23.8
--- NOTE | 2019-04-30 13:35 | RAD_ITS ---
STUDY: X-RAY - PELVIS AND BILATERAL HIPS REASON FOR EXAM: Pain. TECHNIQUE: AP view of the pelvis.? 2 views of the right hip, and 2 views of the left hip were obtained. COMPARISON: None. FINDINGS: Normal visualized soft tissue structures. Normal bilateral iliac wings, sacroiliac joints and visualized sacrum. Normal bilateral superior and inferior pubic rami. Normal pubic symphysis. Normal bilateral ischial tuberosities. Normal visualized right femoral head. Normal right acetabulum. Normal right hip joint. Normal visualized left femoral head. Normal left acetabulum. Normal left hip joint. RAD/Hips B/L min 2 views w/ Pelvis IMPRESSION: Normal x-ray examination of the pelvis and bilateral hips. Electronically Signed: Iban Matamoros MD at 9:39 EST Tel , Service support ,
--- NOTE | 2019-04-30 13:35 | RAD_ITS ---
STUDY: X-RAY - LUMBAR SPINE REASON FOR EXAM: Male, 69 years old. PAIN TECHNIQUE: 3 view(s) of the lumbar spine were obtained. COMPARISON: 07/09/2009 FINDINGS: Normal lumbar lordosis. There is no substantial scoliosis. There is a normal alignment of the vertebrae. Normal vertebral bodies and endplates. Moderate degenerative disc disease and loss of height at L5-S1. Otherwise normal disc space heights. There is no demonstrated fracture. There is atherosclerotic calcification of the abdominal aorta without a demonstrated aneurysm. RAD/Lumbar Spine 2 or 3 Views IMPRESSION: No acute abnormality. Degenerative changes at L5-S1. Findings similar to prior study. Electronically Signed: Luke Al MD at 16:46 EST , Service support ,
[2019-04-30 14:35] LABS: Ferritin 9 ng/mL (26-388); Iron 24 ug/dL (65-175); Iron Binding Capacity,Total 417 ug/dL (250-450)
== END ==
LOC: LAB 13:29
PROVIDERS: Family Provider Internal Medicine; PCP Internal Medicine; Referring Provider Internal Medicine; Visit Provider Internal Medicine
DX: M25.551 Pain in right hip (principal); M25.552 Pain in left hip; M54.5 Low back pain; D64.9 Anemia, unspecified; G25.81 Restless legs syndrome
CPT/HCPCS: 36415; 72100; 73521; 82728; 83540; 83550

== ENCOUNTER → 2019-08-08 | Outpatient (CLI) | payer MEDICARE, SELFPAY ==
[2019-08-08 15:22] VITALS: BMI 24.0
[2019-08-08 17:28] LABS: Absolute Lymphocyte Count 1.49 X10^3/uL (0.83-4.51); Absolute Neutrophil Count 5.9 X10^3/uL (2.0-7.7); Basophil# 0.05 X10^3/uL; Basophil% 0.6 % (0-1); Eosinophil# 0.33 X10^3/uL; Eosinophils% 3.7 % (0-5); Hemoglobin 14.6 g/dL (13.0-16.5); Lymphocyte # 1.49 X10^3/ul (4.0); Lymphocyte % 16.5 % (19-41); Mean Corpuscular Hgb 27.9 pg (27.0-32.0); Mean Corpuscular Volume 82.2 fL (80-94); Mean Platelet Vol. 9.9 fl (6.2-12.0); Monocyte# 1.22 X10^3/uL; Monocyte% 13.5 % (0-10); NRBC Flagged by Analyzer 0 % (0-5); Neutrophil # 5.91 X10^3/uL (2.7-7.7); Neutrophil % 65.3 % (47-70); Platelet Count 254 K/mm3 (150-450); RBC Distribution Width CV 17.6 % (11.6-14.6); RBC Distribution Width SD 52.9 fl (35.1-43.9); Red Blood Count 5.23 M/mm3 (4.6-6.2)
[2019-08-08 17:39] LABS: ALB/GLOB Ratio 1.1 RATIO (0.9-2.4); AST(SGOT) 38 U/L (15-37); Alanine Aminotransfer ALT/SGPT 48 U/L (16-61); Albumin, Serum 3.8 g/dL (3.2-5.0); Alkaline Phosphatase 78 U/L (45-117); Anion Gap 6 (5-15); BUN 15 mg/dL (7-18); BUN/Creat Ratio 17.4 RATIO (10-20); Calcium,Total 9.3 mg/dL (8.5-10.1); Chloride 108 mmol/L (98-107); Creatinine, Serum 0.86 mg/dL (0.70-1.30); EST Glomerular Filtration Rate 93 mL/min (>60); Est Glom Filt Rate - Afr Amer 113 mL/min (>60); Globulin 3.5 g/dL (2.2-4.2); Glucose 94 mg/dL (74-106); Potassium 3.8 mmol/L (3.5-5.1); Protein, Total 7.3 g/dL (6.4-8.2); Sodium Level 139 mmol/L (136-145)
== END | disposition home or self-care (01) ==
PROVIDERS: PCP Internal Medicine; Referring Provider Internal Medicine; Visit Provider Internal Medicine
DX: K92.2 Gastrointestinal hemorrhage, unspecified (principal); R19.5 Other fecal abnormalities
CPT/HCPCS: 80053; 82274; 85025

== ENCOUNTER → 2019-09-17 | Outpatient (CLI) | payer MEDICARE, SELFPAY ==
[2019-07-09 06:17] VITALS: BMI 24.0
[2019-08-26 14:07] VITALS: BMI 24.0
--- NOTE | 2019-09-18 10:10 | PFT ---
INTRODUCTION: The patient is a 69-year-old female who presents for pulmonary function studies secondary to a diagnosis of COPD. Respiratory therapy reports good patient effort. Bronchodilators were used during testing. INTERPRETATION: Forced expiration spirometry demonstrates the presence of a moderately severe large airways obstructive ventilatory defect. There was no significant response to aerosolized bronchodilators. Spirograms are of good quality and do not plateau indicating slow emptying of the lungs. Body plethysmography was performed and reveals an elevated TLC and RV, indicative of underlying hyperinflation and air trapping. Diffusing capacity by single breath CO is reduced at 61% of predicted. IMPRESSION: Irreversible moderately severe large airways obstructive ventilatory defect with associated hyperinflation, air trapping and reduction in diffusing capacity. There was improvement in the patient's FEV1 when compared to prior pulmonary function studies from September 2018. However, it should be noted that the patient did utilize her albuterol inhaler 10 minutes before her pulmonary function studies.
== END | disposition home or self-care (01) ==
LOC: PSN 13:03
PROVIDERS: PCP Internal Medicine; Referring Provider Internal Medicine Critical Care Medicine; Visit Provider Internal Medicine Critical Care Medicine
DX: J44.9 Chronic obstructive pulmonary disease, unspecified (principal)
CPT/HCPCS: 94060; 94726; 94729

== ENCOUNTER 2019-09-18 08:14 | Day surgery (SDC) | payer MEDICARE, SELFPAY ==
[2019-08-26 14:07] VITALS: BMI 24.0
[2019-09-18] VITALS (7 sets, daily range): BP systolic 113–139; BP diastolic 69–82; PULSE 61–72; RESP 16–18; TEMP 35.9–36.2; O2SAT 95–98; BMI 26.0
--- NOTE | 2019-09-18 | COLBX_PTH ---
PATIENT: ANITA ESQUIVEL LOC: EN U#:[id number] AGE/SX: 69/M ROOM: RE09/18/[address]: Dr. Ricarda Martinez MD : [id number] BED: DIS: 09/18/2019 SPEC #: [id number] RECD: 09/18/19 15:28 STATUS: MARIKA LUIS #: [id number] ADAIR: 09/18/19 00:[address]: Ricarda Martinez DEPT: SURGICAL PATHOLOGY RECD BY: Dago Robins ENTERED: 09/19/19 08:47 SP TYPE: COLON BX OTHR DR: Dr. Sharon Osorio MD Tissues: Sigmoid colon biopsy Procedures: Surgery Specimen Level IV HEADER OPERATION: Colonoscopy (MAC) PRE-OP DIAGNOSIS: Screening TISSUE SUBMITTED: Sigmoid polyp biopsy MICROSCOPIC DIAGNOSIS Sigmoid colon polyp, biopsy: Polypoid fragment of benign colonic mucosa with focal adenomatous change. See comment. AM:ade 6/5/20 COMMENT Neither hyperplastic nor adenomatous change is identified. MICROSCOPIC DESCRIPTION Slides are reviewed. GROSS DESCRIPTION Received in fixative is one container labeled with the patient's name and designated sigmoid polyp biopsy. The specimen consists of one irregular fragment of light colon soft tissue that measures 0.2 x 0.2 x 0.1 cm. The specimen is totally submitted in one cassette. / SJ:ade 09/19/19 TC:5 CPT: 86009
[2019-09-18] MEDS: Lactated Ringers 1,000 ML 100 ML IV (08:47)
--- NOTE | 2019-09-18 09:02 | SUR.PREOP ---
pt given soap suds enema per order
--- NOTE | 2019-09-18 10:16 | HP.PCM_ITS ---
History of Present Illness Date of Admission: 09/18/19 The patient is a 69 year old M presents for screening colonoscopy. Patient states his last colonoscopy was about 3 years ago he did have a couple polyps recommended to have a repeat done. Patient states he has bowel movements daily states they are a mix between dark and light brown, denies any black stools did have a fecal occult which was negative patient denies any family history of colon cancer. Patient denies any abdominal pain/nausea/vomiting/reflux. 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 Past Medical/Surgical History - Planned Operation Planned Operative Procedure/s: cscope Date of Operative Procedure: 09/04/19 Permit Signed: No S.O.S: No Is This Patient Having a Total Joint: No - Previous Hospitalizations/Surgeries HX Hospitalizations: Yes HX of Surgeries: PERICARDIOCENTESIS, HEART CATH WITH STENTS,. ankle surgery, colonoscopy Any Problems With Anesthesia: No You/Your Family Experience Fever (Hyperthermia) With Anes: No Cholinesterase deficiency: No - Cardiovascular Hx Chest Pain within Last 2 months: Yes Hx of Irregular Heartbeat and/or Afib: No Hx Heart Attack: No Hx Congestive Heart Failure: No Hx Rheumatic Fever: No Hx Hypertension: Yes Hx Internal Defibrillator: No Hx Pacemaker: No Hx Cardiac Catheterization: Yes What facility was last heart cath performed: [facility] [place] [facility] Date of last Heart Cath: 2018 Hx Cardiac Surgery/Stents/Etc.: No Hx Stress Test: Yes HX Edema: Yes - lower legs/ankles prn Hx Pain in Legs when Walking/Leg Cramps: Yes - occ pain - Respiratory Chronic Cough: No HX of Shortness of Breath: Yes - sob with 2 flights of stairs Hoarseness: No Hx Chronic Obstructive Pulmonary Disease (COPD): Yes Hx Asthma: No Hx Emphysema: Yes Hx Sleep Apnea: No Hx Oxygen Use at Home: No Hx Respiratory Tract Infection/Cold (presently): No Do You Snore Loudly (louder than talking or can be heard): No Do You Often Feel Tired/ Fatigued/ Sleepy Dring Daytime?: No Has Anyone Observed You Stop Breathing During Sleep?: No Result (for STOP score): Negative Hx Smoking: Yes Smoking Status: Former smoker - Gastrointestinal Hx Gastroesophageal Reflux: No Hx Gastrointestinal Disorders: No Hx Gastrointestinal Bleed: No Hx Ulcer: No Hx Hiatal Hernia: No Difficulty Chewing/Swallowing: No Recent Onset of Swallowing Problems: No Special diet followed at home: No Hx Unplanned Weight Loss of 20#: No HX Unplanned Weight Gain of 20#: No - Neurological Hx Seizures: No HX Syncope/Blackout Spells/Unconsciousness: No Hx CVA/Stroke: No - questionable tia 2009/period of short term memory loss Hx Transient Ischemic Attacks (TIA): No - SHORT TERM MEMORY LOSS FROM BLEEDING ON THE BRAIN 10/15/08 Hx Multiple Sclerosis: No Hx Parkinson's Disease: No Hx Head/Neck Injury: No Hx Headaches: Yes - occ Hx Back Injury/Pain: Yes - back pain/arthritis/follows with pain managmemnt Recent Onset of Speech Difficulty: No Restless Legs: Yes - on med Does patient have nerve stimulator: No Patient instructed to have device shut off: No Rep notified?: No - Blood Disorder Hx Leukemia: No Bleeding Tendencies: Yes - bruises easily Hx Deep Vein Thrombosis: No Hx High Cholesterol: Yes Blood Transmitted Disease: No - hx of shingles 2019 Hx Hepatitis: No Hx Cirrhosis: No Hx Anemia: No Hx Blood Disorders: No - Genitourinary Hx Renal Disease: No - enlarged prostate Hx Dialysis: No - Musculoskeletal Hx Arthritis: Yes Hx Rheumatoid Arthritis: No Hx Gout: No Recent Onset of an Orthopedic Problem: No - Endocrine Hx Diabetes: No Insulin: No Thyroid Disease: No Hx Steroid Therapy: No - Psycho/Social Hx Substance Use: Yes - 2008; FORMER USER OF CRACK/COCAINE, 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, 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 Hx Alcohol Use: No Hx Anxiety: Yes Hx Depression: Yes Mental Illness: No Hx Dementia: No - Miscellaneous Hx Cancer: No Recent Exposure to Contagious Disease: No Active MRSA: No Hx of C-Diff: No Any Loose Teeth: No - dentures Allergies No Known Allergies Allergy (Unverified 09/18/19 08:40) - Discharge Is Pt Admitted From a Retirement, or a Usp: No Who Could Help: family After D/C, Where Do you Plan to Go: Return Home - From the PAT History Number of Risk Factors: 7 - Physical Exam Vitals/I&O's: Vital Signs Temp Pulse Resp BP Pulse Ox 97.0 F L 72 16 139/75 H 95 09/18/19 08:41 09/18/19 08:41 09/18/19 08:41 09/18/19 08:41 09/18/19 08:41 Oxygen Delivery Method Room Air Weight: 171 lb 8.314 oz Body Mass Index (BMI) 26.0 Finger Stick Blood Glucose 107 General: Alert, Oriented x3, Cooperative, No apparent distress HEENT: Atraumatic Lungs: Normal air movement Cardiovascular: Regular rate Abdomen: Soft, Non Tender, Non-Distended Extremities: No clubbing, No cyanosis, No edema Neurological: Cranial nerves II-XII grossly intact Psych/Mental Status: Normal Affect Laboratory Results 09/17/19 10:11: COVID-19 (ROMMEL) Not Detected Current Medications Lactated Ringer's () 1,000 mls @ 100 mls/hr IV .Q10H DAVIS Last Admin: 09/18/19 08:47 Dose: 100 mls/hr Documented by: Assessment/Plan All Active Problems (Last Reviewed 08/13/19 @ 15:[address] Bernard Valencia MD) History of open reduction and internal fixation (ORIF) procedure (Resolved) History of colonoscopy (Resolved) History of ankle surgery (Resolved ~2008) Cardiac tamponade (Resolved 07/29/18) S/P pericardiocentesis (Resolved 08/01/18) Shingles (herpes zoster) polyneuropathy (Resolved) 69-year-old male history of colon polyps Procedure Criteria Procedure Type: Elective COVID Risk Discussion: The surgeon/proceduralist and patient have discussed in detail the risk of exposure to and/or potential harm posed by the COVID-19 virus with having a surgery/procedure at this time versus the risk of delaying the surgery/procedure. It is not possible to know either the risk of delaying the surgery or procedure or chance of getting an infection with perfect accuracy, but a joint decision was made between the patient and the surgeon/proceduralist to proceed at this time with the scheduled surgery/procedure as indicated on the consent form. Surgery Risks - Colonoscopy I discussed with the patient the risks of the procedure: Yes Risks Include but are not Limited To: Risks include but are not limited to: Bleeding, perforation requiring further surgery, inability to complete colonoscopy requiring barium enema. Patient no further questions this time.
--- NOTE | 2019-09-18 10:59 | OP.COLON_ITS ---
Patient Name: Skyler Guzman Procedure Date: 09/18/2019 10:23 AM Date of : 1950 Age: 69 Procedure: Colonoscopy Indications: High risk colon cancer surveillance: Personal history of colonic polyps, Surveillance: Personal history of colonic polyps (unknown histology) on last colonoscopy 3 years ago Providers: Ricarda Martinez MD Referring MD: Sharon Osorio MD Medicines: Monitored Anesthesia Care Patient Profile: This is a 69 year old male. Last Colonoscopy: 3 years ago. Complications: No immediate complications. Procedure: Pre-Anesthesia Assessment: - Prior to the procedure, a History and Physical was performed, and patient medications and allergies were reviewed. The patient's tolerance of previous anesthesia was also reviewed. The risks and benefits of the procedure and the sedation options and risks were discussed with the patient. All questions were answered, and informed consent was obtained. Prior Anticoagulants: The patient has taken aspirin, last dose was day of procedure. ASA Grade Assessment: III - A patient with severe systemic disease. After reviewing the risks and benefits, the patient was deemed in satisfactory condition to undergo the procedure. After I obtained informed consent, the scope was passed under direct vision. Throughout the procedure, the patient's blood pressure, pulse, and oxygen saturations were monitored continuously.The colonoscopy was performed without difficulty. The patient tolerated the procedure well. The quality of the bowel preparation was good. The pediatric colonoscope was introduced through the anus and advanced to. Scope In: 10:30:45 AM Scope Withdrawal Time 0 hours 7 minutes 56 seconds Scope Out: 10:50:39 AM Total Procedure Duration Time 0 hours 19 minutes 54 seconds Findings: The perianal and digital rectal examinations were normal. A less than 5 mm polyp was found in the sigmoid colon. The polyp was sessile. The polyp was removed with a cold biopsy forceps. Resection and retrieval were complete. Biopsies were taken with a cold forceps for histology. A few small-mouthed diverticula were found in the sigmoid colon. The exam was otherwise without abnormality on direct and retroflexion views. Impression: - One less than 5 mm polyp in the sigmoid colon, removed with a cold biopsy forceps. Resected and retrieved. Biopsied. - Diverticulosis in the sigmoid colon. - The examination was otherwise normal on direct and retroflexion views. Recommendation: - Discharge patient to home. - High fiber diet. - Continue present medications. - Await pathology results. - Repeat colonoscopy in 5 years for surveillance based on pathology results. Procedure Code(s): --- Professional --- 26536, Colonoscopy, flexible; with biopsy, single or multiple Diagnosis Code(s): --- Professional --- D12.5, Benign neoplasm of sigmoid colon Z86.010, Personal history of colonic polyps K57.30, Diverticulosis of large intestine without perforation or abscess without bleeding CPT copyright 2017 [employer]. All rights reserved. The codes documented in this report are preliminary and upon gas station service attendant review may be revised to meet current compliance requirements. MD Ricarda Coates MD 09/18/2019 10:59:21 AM This report has been signed electronically. Number of Addenda: 0 Note Initiated On: 09/18/2019 10:23 AM
--- NOTE | 2019-09-18 11:00 | OP.CCLET_ITS ---
09/18/2019 Sharon Osorio MD [address] [place] [address] [place] [address] Re : Colonoscopy procedure for Skyler Guzman Dear Dr. Osorio This procedure was performed on Wednesday, September 18, 2019. My impressions and recommendations are as follows: Impressions : - One less than 5 mm polyp in the sigmoid colon, removed with a cold biopsy forceps. Resected and retrieved. Biopsied. - Diverticulosis in the sigmoid colon. - The examination was otherwise normal on direct and retroflexion views. Recommendations : - Discharge patient to home. - High fiber diet. - Continue present medications. - Await pathology results. - Repeat colonoscopy in 5 years for surveillance based on pathology results. My findings are described in the full procedure note, which is enclosed. If I can be of further assistance, please feel free to contact me at Doctor phone number(s): , Work: . Sincerely, MD Ricarda Coates MD 09/18/2019 10:59:21 AM This report has been signed electronically.
== END 2019-09-18 11:34 | disposition home or self-care (01) ==
LOC: EN 08:17 → AC 08:19
PROVIDERS: Physician Assistant; PCP Internal Medicine; Referring Provider Internal Medicine; Visit Provider Surgery
PROC: 0DJD8ZZ Inspection of Lower Intestinal Tract, Via Natural or Artificial Opening Endoscopic (ICD-10-PCS; CPT 45378; principal; 2019-09-18 09:25)
DX: Z12.11 Encounter for screening for malignant neoplasm of colon (principal); K63.5 Polyp of colon; K57.30 Diverticulosis of large intestine without perforation or abscess without bleeding; I10 Essential (primary) hypertension; J44.9 Chronic obstructive pulmonary disease, unspecified; G25.81 Restless legs syndrome; E78.00 Pure hypercholesterolemia, unspecified; Z86.19 Personal history of other infectious and parasitic diseases; N40.0 Benign prostatic hyperplasia without lower urinary tract symptoms; M19.90 Unspecified osteoarthritis, unspecified site; I25.10 Atherosclerotic heart disease of native coronary artery without angina pectoris; Z86.010 Personal history of colon polyps; Z11.59 Encounter for screening for other viral diseases; Z79.02 Long term (current) use of antithrombotics/antiplatelets; Z87.891 Personal history of nicotine dependence; Z95.5 Presence of coronary angioplasty implant and graft; Z79.82 Long term (current) use of aspirin; Z79.51 Long term (current) use of inhaled steroids
CPT/HCPCS: 45380; 87635; 88305; G2023; J7120; J2405; U0002; U0003

== ENCOUNTER → 2019-10-03 13:59 | Outpatient (CLI) | payer MEDICARE, SELFPAY ==
[2019-10-03 07:52] VITALS: BMI 26.0
[2019-10-03 14:16] LABS: Absolute Lymphocyte Count 1.46 X10^3/uL (0.83-4.51); Absolute Neutrophil Count 6.1 X10^3/uL (2.0-7.7); Basophil# 0.04 X10^3/uL; Basophil% 0.4 % (0-1); Eosinophil# 0.28 X10^3/uL; Eosinophils% 3.1 % (0-5); Hematocrit 45.3 % (40-54); Hemoglobin 14.9 g/dL (13.0-16.5); Lymphocyte # 1.46 X10^3/ul (4.0); Lymphocyte % 16.3 % (19-41); Mean Corp Hgb Conc 32.9 g/dL (32-36); Mean Corpuscular Volume 88.3 fL (80-94); Mean Platelet Vol. 9.2 fl (6.2-12.0); Monocyte# 1.03 X10^3/uL; Monocyte% 11.5 % (0-10); NRBC Flagged by Analyzer 0 % (0-5); Neutrophil # 6.08 X10^3/uL (2.7-7.7); Neutrophil % 67.9 % (47-70); Platelet Count 248 K/mm3 (150-450); RBC Distribution Width CV 13.9 % (11.6-14.6); RBC Distribution Width SD 44.7 fl (35.1-43.9); Red Blood Count 5.13 M/mm3 (4.6-6.2)
[2019-10-07 14:52] LABS: ANTINUCLEAR ANTIBODIES DIRECT Negative (Negative)
== END ==
PROVIDERS: Nurse Practitioner Acute Care; PCP Internal Medicine; Referring Provider Internal Medicine Critical Care Medicine; Visit Provider Internal Medicine Critical Care Medicine
DX: J45.909 Unspecified asthma, uncomplicated (principal); Z87.438 Personal history of other diseases of male genital organs
CPT/HCPCS: 36415; 85025; 86038; 86225; 86235

== ENCOUNTER 2019-11-18 10:48 | Day surgery (SDC) | payer MEDICARE, SELFPAY ==
[2019-10-03 07:52] VITALS: BMI 26.0
[2019-11-07 14:15] VITALS: BMI 25.8
[2019-11-18] VITALS (8 sets, daily range): BP systolic 101–141; BP diastolic 51–69; PULSE 70–86; RESP 14–20; TEMP 36.6; O2SAT 96–98; BMI 25.9
--- NOTE | 2019-11-18 11:20 | RAD_ITS ---
PROCEDURE: Caudal block. DATE OF EXAMINATION: 11/18/2019. INDICATION: Male, 69 years old. Low back pain. FLUOROSCOPY TIME (if supplied): (7.8 seconds) minutes/seconds. A single image was submitted. Intraoperative imaging provided for caudal block. RAD/Fluor Guidance for Spine Inj IMPRESSION: Intraoperative imaging provided for caudal block. Electronically Signed: Earl Lowe, at 13:11 EDT , Service support ,
[2019-11-18] MEDS: Lactated Ringers 1,000 ML 100 ML IV (11:36)
[2019-11-18] MEDS: MethylPREDNISolone Acetate 80 MG/ML Vial (11:52)
[2019-11-18] MEDS: 0.9% Normal Saline (Pres. free 10 ML Vial (11:53)
[2019-11-18] MEDS: Bupivacaine 0.25% 30 ML Vial (11:53)
--- NOTE | 2019-11-18 15:26 | PCM.OPRPT ---
Report of Operation Date of Procedure: 11/18/19 Description of Surgical Findings:: PREOPERATIVE DIAGNOSIS: Lumbosacral radiculopathy, lumbosacral degenerative disc disease, lumbosacral spinal stenosis POSTOPERATIVE DIAGNOSIS: Lumbosacral radiculopathy, lumbosacral degenerative disc disease, lumbosacral spinal stenosis PROCEDURE PERFORMED: Caudal epidural steroid injection. ANESTHESIA: MAC. BLOOD LOSS: Minimal. COMPLICATIONS: None. DESCRIPTION OF PROCEDURE: History and physical of today was reviewed. Risks and benefits of the procedure were explained. The patient understood and agreed to proceed. Informed consent was obtained. IV inserted per routine protocol. The patient was taken to the operating room and placed in the prone position with a pillow positioned underneath the abdomen. The lower back and tailbone area was prepped and draped in a sterile fashion using iodine x3. Under fluoroscopy guidance on a lateral view, the caudal space was identified. The skin and subcutaneous tissue was anesthetized with approximately 3 mL of 1% lidocaine using a 25-gauge regular needle. Under direct visualization with fluoroscopy, using a 22-gauge 3-1/2-inch spinal needle, the needle was advanced via the skin through the sacral hiatus. The tip of the needle was passed through the sacrococcygeal ligament and advanced to approximately S4 area. After negative aspiration of blood or CSF, a total of 3 mL of contrast was injected to confirm correct placement of the needle as well as cephalad spread. The spread was followed to approximately L5 area. After confirmation on AP as well as lateral view and repeated negative aspiration, a total of 15 mL of preservative-free 0.125% Marcaine with 80 mg of Depo-Medrol was injected easily. The needle was then removed intact. The patient experienced no sign or symptoms of intrathecal or intravascular injection. The patient experienced no paresthesia. The procedure was completed without any apparent difficulty or any complications. The patient appeared to tolerate it well. ASSESSMENT AND PLAN: This is a 69-year-old male with lumbosacral radiculopathy, lumbosacral disc disease, lumbosacral spinal stenosis status post caudal epidural steroid injection patient will continue his current medications patient will follow in approximately 2 weeks for reevaluation.
== END 2019-11-18 12:48 | disposition home or self-care (01) ==
LOC: SDC 10:50 → AC 10:51
PROVIDERS: PCP Internal Medicine; Referring Provider Anesthesiology Pain Medicine; Visit Provider Anesthesiology Pain Medicine
PROC: 3E0S3BZ Introduction of Anesthetic Agent into Epidural Space, Percutaneous Approach (ICD-10-PCS; CPT 62282; principal; 2019-11-18 11:15)
DX: M51.17 Intervertebral disc disorders with radiculopathy, lumbosacral region (principal); M48.07 Spinal stenosis, lumbosacral region; M47.27 Other spondylosis with radiculopathy, lumbosacral region; J44.9 Chronic obstructive pulmonary disease, unspecified; F41.9 Anxiety disorder, unspecified; F32.9 Major depressive disorder, single episode, unspecified; I25.10 Atherosclerotic heart disease of native coronary artery without angina pectoris; Z79.51 Long term (current) use of inhaled steroids; Z79.82 Long term (current) use of aspirin; Z79.899 Other long term (current) drug therapy
CPT/HCPCS: 01992; 62323; 64520; 64483; 77003; J7120; J3490

== ENCOUNTER → 2019-11-21 06:37 | Outpatient (CLI) | payer MEDICARE, SELFPAY ==
[2019-11-07 14:15] VITALS: BMI 25.8
[2019-11-18 11:15] VITALS: BMI 25.9
--- NOTE | 2019-11-21 06:38 | ECHOCS_ITS ---
Reason For Study: SOB, CHF Procedure This was a 2D Doppler, Color Flow transthoracic echocardiogram. The study was technically difficult. Due to COPD/emphysema. Exam performed in department. Left Ventricle Normal LV size. The estimated ejection fraction is 60 %. No evidence for diastolic dysfunction. No regional wall motion abnormalities noted. Right Ventricle Normal RV size. Normal systolic function. Atria Normal left atrium. Normal right atrium. No doppler evidence for ASD. Mitral Valve There is no mitral valve stenosis. No mitral valve insufficiency. Tricuspid Valve There is no tricuspid stenosis. Unable to estimate RV systolic pressure due to insufficient tricuspid regurgitant envelope. Aortic Valve Trisinus/trileaflet aortic valve. There is no aortic stenosis. No aortic valve insufficiency. Pulmonic Valve There is no pulmonic valvular stenosis. No pulmonic valve insufficiency. Great Vessels Normal aortic root. Pericardium/Pleural No pericardial effusion. Medication Diluted definity 5.0ml given slow IV push to enhance endocardial definition. MMode/2D Measurements & Calculations LVIDd: 4.5 cm IVSd: 0.90 cm Ao root diam: 2.8 cm LVIDs: 3.4 cm LVPWd: 0.91 cm RVDd: 3.9 cm FS: 25.9 % LAV(MOD-bp): 68.0 ml LA A4 area: 20.7 cm2 LA dimension(2D): 3.5 cm LAV(MOD-bp) Indexed: 35.6 ml/m2 LAV(MOD-sp2): 71.0 ml LAV(MOD-sp4): 59.5 ml RA A4 area: 22.7 cm2 Time Measurements MV dec time: 0.25 sec Doppler Measurements & Calculations MV E max wes: 92.9 cm/sec Lat Peak E' Wes: 8.3 cm/sec Med Peak E' Wes: 9.4 cm/sec MV A max wes: 72.9 cm/sec E/E' lat: 11.2 E/E' med: 9.9 MV E/A: 1.3 Ao V2 max: 132.5 cm/sec LV V1 max: 125.4 cm/sec PA V2 max: 101.9 cm/sec Ao max P.0 mmHg LV V1 max P.3 mmHg Ao V2 mean: 90.7 cm/sec LV V1 mean P.0 mmHg Ao mean P.7 mmHg LV V1 mean: 80.6 cm/sec Ao V2 VTI: 26.9 cm LV V1 VTI: 25.0 cm TR max wes: 238.0 cm/sec TR max P.7 mmHg Interpretation Summary The estimated ejection fraction is 60 %. No evidence for diastolic dysfunction. The study was technically difficult. Contrast injection was performed. Ordering Physician: Nagajothi, Nagapradee Referring Physician: Sharon Osorio Performed By: Kat Blunt, CODI, RVT
--- NOTE | 2019-11-21 15:07 | STRESSREP ---
Stress Test Report Date: 11/21/2019 Procedure: Pharmacologic stress nuclear imaging study Indications: Dyspnea on exertion, chest pain Consent: Per the patient Procedure: The patient underwent pharmacologic (Regadenoson) evaluation with a peak heart rate of 85 beats per minute (56 %predicted maximal heart rate) and a peak blood pressure of 152/70 mmHg. The baseline ECG demonstrated normal sinus rhythm, nonspecific ST-T changes. EKG during lexiscan infusion revealed no significant ischemic changes. EKG post infusion revealed no significant ischemic changes [There were no cardiac dysrhythmias pretest, during pharmacologic infusion, or recovery]. [There was no complaint of chest discomfort during pharmacologic infusion or recovery]. The examination was discontinued secondary to completion of protocol. Impression: 1. Lexiscan stress test test is negative for Lexiscan infusion induced EKG changes of ischemia. 2. Lexiscan stress test test is negative for Lexiscan infusion induced chest pain. 3. Results of the nuclear portion of the test is as below Myocardial perfusion imaging study: Technique: The patient was injected with 11.7 millicuries of technetium 99m Cardiolite and subsequently rest SPECT Cardiolite nuclear imaging was obtained in the horizontal long, vertical long, and short axis views. The patient underwent pharmacologic (Regadenoson) evaluation. Please see above for details. The patient was injected with 36 millicuries of technetium 99m Cardiolite and subsequently stress SPECT Cardiolite nuclear imaging was obtained in the horizontal long, vertical long, and short axis views. A gated Cardiolite study at peak stress was obtained. Interpretation: Rest and stress SPECT Cardiolite nuclear imaging status post realignment, normalization, and attenuation correction demonstrate mildly decreased radioisotope uptake in the inferior wall prior to attenuation correction on both the rest and stress images. After attenuation correction there is normal myocardial radioisotope uptake. There is no evidence of significant ischemia or infarction. Gated images reveal no significant regional wall motion abnormalities. The reported LVEF is greater than 70 %. Impression: 1. There is no evidence of significant ischemia or infarction. 2. Estimated ejection fraction is greater than 70%. This note was generated with Lawding[employer] software. It may contain incorrect words, spelling, and punctuation that were not noted in checking the note before signing.
== END ==
LOC: CVS 06:38
PROVIDERS: PCP Internal Medicine; Referring Provider Specialist; Visit Provider Specialist
DX: I25.10 Atherosclerotic heart disease of native coronary artery without angina pectoris (principal); I34.1 Nonrheumatic mitral (valve) prolapse; I10 Essential (primary) hypertension; E78.5 Hyperlipidemia, unspecified; R06.02 Shortness of breath; R07.9 Chest pain, unspecified; Z95.5 Presence of coronary angioplasty implant and graft
CPT/HCPCS: 78452; 93017; 93306; A9500; Q9957; A4216; C8929; J2785

== ENCOUNTER → 2020-05-07 15:11 | Outpatient (CLI) | payer MEDICARE, SELFPAY ==
[2020-05-07 14:45] VITALS: BMI 25.7
[2020-05-07 16:39] LABS: Absolute Lymphocyte Count 1.55 X10^3/uL (0.83-4.51); Basophil# 0.07 X10^3/uL; Basophil% 0.7 % (0-1); Eosinophil# 0.23 X10^3/uL; Eosinophils% 2.3 % (0-5); Lymphocyte # 1.55 X10^3/ul (4.0); Lymphocyte % 15.3 % (19-41); Mean Corp Hgb Conc 34.1 g/dL (32-36); Mean Corpuscular Hgb 29.9 pg (27.0-32.0); Mean Corpuscular Volume 87.6 fL (80-94); Mean Platelet Vol. 10.3 fl (6.2-12.0); Monocyte# 1.19 X10^3/uL; Monocyte% 11.8 % (0-10); NRBC Flagged by Analyzer 0 % (0-5); Neutrophil # 7.01 X10^3/uL (2.7-7.7); Neutrophil % 69.4 % (47-70); Platelet Count 290 K/mm3 (150-450); RBC Distribution Width SD 41.6 fl (35.1-43.9); Red Blood Count 5.02 M/mm3 (4.6-6.2); White Blood Count 10.1 K/mm3 (4.4-11.0)
[2020-05-07 16:59] LABS: ALB/GLOB Ratio 1.1 RATIO (0.9-2.4); AST(SGOT) 38 U/L (15-37); Alanine Aminotransfer ALT/SGPT 53 U/L (16-61); Albumin, Serum 3.9 g/dL (3.2-5.0); Alkaline Phosphatase 88 U/L (45-117); Anion Gap 5 (5-15); BUN 16 mg/dL (7-18); BUN/Creat Ratio 15.7 RATIO (10-20); Chloride 108 mmol/L (98-107); Cholesterol 134 mg/dL (200); Creatinine, Serum 1.02 mg/dL (0.70-1.30); EST Glomerular Filtration Rate 77 mL/min (>60); Est Glom Filt Rate - Afr Amer 93 mL/min (>60); Globulin 3.6 g/dL (2.2-4.2); Glucose 92 mg/dL (74-106); High Density Lipoprotein 62 mg/dL; Potassium 3.8 mmol/L (3.5-5.1); Protein, Total 7.5 g/dL (6.4-8.2); Sodium Level 139 mmol/L (136-145); Triglycerides 123 mg/dL; Very Low Density Lipoprotein 25 mg/dL (5-40)
== END ==
PROVIDERS: PCP Internal Medicine; Referring Provider Internal Medicine; Visit Provider Internal Medicine
DX: E78.5 Hyperlipidemia, unspecified (principal); I10 Essential (primary) hypertension
CPT/HCPCS: 36415; 80053; 80061; 85025

== ENCOUNTER → 2020-08-05 14:01 | Outpatient (CLI) | payer MEDICARE, SELFPAY ==
[2020-08-05 13:25] VITALS: BMI 26.1
[2020-08-05 14:22] LABS: Absolute Lymphocyte Count 1.46 X10^3/uL (0.83-4.51); Absolute Neutrophil Count 9.1 X10^3/uL (2.0-7.7); Basophil# 0.06 X10^3/uL; Basophil% 0.5 % (0-1); Eosinophil# 0.16 X10^3/uL; Eosinophils% 1.3 % (0-5); Hematocrit 45.6 % (40-54); Hemoglobin 15.7 g/dL (13.0-16.5); Lymphocyte # 1.46 X10^3/ul (0.83-4.51); Lymphocyte % 12.3 % (19-41); Mean Corp Hgb Conc 34.4 g/dL (32-36); Mean Corpuscular Hgb 29.8 pg (27.0-32.0); Mean Corpuscular Volume 86.7 fL (80-94); Monocyte# 1.07 X10^3/uL; NRBC Flagged by Analyzer 0 % (0-5); Neutrophil # 9.07 X10^3/uL (2.7-7.7); Neutrophil % 76.2 % (47-70); Platelet Count 275 K/mm3 (150-450); RBC Distribution Width CV 12.7 % (11.6-14.6); RBC Distribution Width SD 40.1 fl (35.1-43.9); Red Blood Count 5.26 M/mm3 (4.6-6.2); White Blood Count 11.9 K/mm3 (4.4-11.0)
[2020-08-05 14:52] LABS: AST(SGOT) 34 U/L (15-37); Alanine Aminotransfer ALT/SGPT 49 U/L (16-61); Alkaline Phosphatase 93 U/L (45-117); Anion Gap 8 (5-15); BUN 21 mg/dL (7-18); BUN/Creat Ratio 19.4 RATIO (10-20); Calcium,Total 9.5 mg/dL (8.5-10.1); Chloride 104 mmol/L (98-107); Creatinine, Serum 1.08 mg/dL (0.70-1.30); EST Glomerular Filtration Rate 72 mL/min (>60); Est Glom Filt Rate - Afr Amer 87 mL/min (>60); Globulin 4.1 g/dL (2.2-4.2); Glucose 131 mg/dL (74-106); Potassium 3.7 mmol/L (3.5-5.1); Protein, Total 8.1 g/dL (6.4-8.2); Sodium Level 136 mmol/L (136-145)
== END ==
PROVIDERS: PCP Internal Medicine; Visit Provider Internal Medicine
DX: R10.11 Right upper quadrant pain (principal); R10.9 Unspecified abdominal pain
CPT/HCPCS: 36415; 80053; 85025

== ENCOUNTER → 2020-08-12 07:59 | Outpatient (CLI) | payer MEDICARE, SELFPAY ==
[2020-08-05 13:25] VITALS: BMI 26.1
[2020-08-11 12:45] VITALS: BMI 26.3
--- NOTE | 2020-08-12 08:00 | US_ITS ---
STUDY: ABDOMINAL ULTRASOUND - RIGHT UPPER QUADRANT REASON FOR VISIT: Male, 70 years old RUQ Pain TECHNIQUE: Ultrasound evaluation of the right upper quadrant was performed with real-time and static joya-scale imaging. TECHNICAL QUALITY: Adequate. COMPARISON: None. FINDINGS: Liver: The liver measures 15.2 cm. There is increased echogenicity consistent with fatty infiltration. The bile ducts are within normal limits. There is hepatic color flow. The direction of portal flow is hepatopetal. There is no demonstrated mass lesion. Gallbladder: Normal distended gallbladder. The gallbladder wall measures 2 mm. There is a negative sonographic Sharma''s sign. There is no pericholecystic fluid. There are no gallstones. Common Bile Duct (C.B.D.): The common bile duct measures 4 mm. Pancreas: Normal size of the head, body and tail of the pancreas. There is normal echogenicity of the pancreas. There is no demonstrated pancreatic mass or cyst. Right Kidney: Normal size of the right kidney. The right kidney measures 10.3 cm x 5 cm x 5.5 cm. Normal renal cortex. The right cortex measures 2.1 cm. There is a 10 mm x 8 mm x 9 mm renal cyst. There is no right hydronephrosis. US/Abdomen Limited IMPRESSION: Fatty infiltration of the liver. Small right renal cyst. Electronically Signed: Earl Lowe MD at 13:50 EDT , Service support ,
== END ==
PROVIDERS: PCP Internal Medicine; Referring Provider Internal Medicine; Visit Provider Internal Medicine
DX: R10.11 Right upper quadrant pain (principal)
CPT/HCPCS: 76705

== ENCOUNTER → 2020-08-19 13:36 | Outpatient (CLI) | payer MEDICARE, SELFPAY ==
[2020-08-11 12:45] VITALS: BMI 26.3
--- NOTE | 2020-08-19 13:38 | CT_ITS ---
STUDY: LOW DOSE CT LUNG CANCER SCREENING REASON FOR EXAM: Male, 70 years old. Smoking and amp;gt; patient smoked 1.5 packs per day for 40 years. RADIATION DOSAGE (If Supplied By Facility): CTDIvol = ( 3.02 ) mGy, DLP = ( 109.48 ) mGycm TECHNIQUE: No contrast was administered. Low dose technique was utilized (average mAS-38 and kVp 120). 1.25 mm axial source images with a slice interval of 1.25-mm were reconstructed in lung windows. 2.5 mm axial source images with a slice interval of 2.5-mm were reconstructed in lung windows. 5.0 mm axial source images with a slice interval of 5.0-mm were reconstructed in soft tissue windows. Nodule measured using lung windows on PACS and/or independent workstation with automated measurement of minimum and maximum diameter. Nodule measurement reported as average diameter rounded to the nearest whole number. Growth is defined as an increase ins size of greater than 1.5 mm. COMPARISON: Comparison is made with prior examination dated 08/05/2018. NODULES: No suspicious nodules are seen. Emphysema: Hyperinflation. Diffuse emphysematous changes with bullous formation in the upper lobes more prominent on the right side. Stable scarring along the posterior medial aspect of the left upper lobe. Stable mild scarring at the lung bases. Endobronchial lesion: None Aorta: Calcific plaques at the level of the aortic arch. Coronary arteries: Coronary artery calcification. Heart: Unremarkable Pulmonary artery: Unremarkable Mediastinal nodes: Unremarkable Other chest and abdominal findings: CT/Low Dose CT Lung Screening IMPRESSION: Lung-RADS category 2 - Continue annual screening with LDCT in 12 months. IMPORTANT NOTES FOR USE: ACR Lung-RADS Version 1.1 Assessment Categories Release Date: 2018 Category: Coded 0-4 bases on nodule(s) with highest degree of suspicion. Negative screen is defined as categories 1 and 2; a positive screen is defined as categories 3 and 4. Category 3 and 4A nodules that are unchanged on interval CT should be coded as category 2, and individuals returned to screening in 12 months. Category 4X: Category 3 or 4 nodules with additional imaging findings that increase the suspicion of lung cancer, such as spiculation, GGN that doubles in size in 1 year, enlarged lymph notes, etc. Category Modifiers: S (significant finding unrelated to lung cancer) Electronically Signed: Earl Lowe MD at 15:24 EDT , Service support ,
== END ==
PROVIDERS: PCP Internal Medicine; Referring Provider Nurse Practitioner Acute Care; Visit Provider Nurse Practitioner Acute Care
DX: F17.210 Nicotine dependence, cigarettes, uncomplicated (principal); Z12.2 Encounter for screening for malignant neoplasm of respiratory organs
CPT/HCPCS: 71271

== ENCOUNTER → 2021-02-18 13:59 | Outpatient (CLI) | payer MEDICARE, SELFPAY ==
[2021-02-18 15:56] LABS: Anion Gap 8 (5-15); BUN 18 mg/dL (7-18); BUN/Creat Ratio 17.5 RATIO (10-20); Chloride 107 mmol/L (98-107); Creatinine, Serum 1.03 mg/dL (0.70-1.30); EST Glomerular Filtration Rate 76 mL/min (>60); Est Glom Filt Rate - Afr Amer 91 mL/min (>60); Glucose 118 mg/dL (74-106); Potassium 3.4 mmol/L (3.5-5.1); Sodium Level 138 mmol/L (136-145)
== END ==
PROVIDERS: PCP Internal Medicine; Visit Provider Internal Medicine
DX: I10 Essential (primary) hypertension (principal)
CPT/HCPCS: 36415; 80048

== ENCOUNTER → 2021-03-04 | Outpatient (CLI) | payer MEDICARE, SELFPAY ==
[2021-03-04 12:21] LABS: Bacteria 0 SEEN /hpf (None Seen); Mucous, Urine 0 SEEN /hpf (<or=2+); Red Blood Cells-Urine 0 SEEN /hpf (0-5); White Blood Cells 0 SEEN /hpf (0-5)
[2021-03-04 15:05] LABS: Color, Urine Yellow (Yellow); Glucose, Dipstick Normal (Normal); Ketone-Dipstick Negative (Negative); Leukocyte Esterase-Dipstick Negative /ul (Negative); Nitrite-Dipstick Negative (Negative); Occult Blood-Urine Negative /ul (Negative); Protein-Dipstick Negative (Negative); Specific Gravity, Urine 1.015 (1.002-1.030); Urine Bilirubin Dipstick Negative (Negative); Urine Clarity Clear (Clear); Urine Urobilinogen Normal (Normal)
[2021-03-04 15:10] LABS: Squamous Epithelial Cells - UA 0-5 SEEN /hpf (0-5)
== END | disposition home or self-care (01) ==
LOC: LABSPEC 12:19
PROVIDERS: PCP Internal Medicine; Referring Provider Nurse Practitioner Family; Visit Provider Nurse Practitioner Family
DX: R10.9 Unspecified abdominal pain (principal)
CPT/HCPCS: 81001; 87086

== ENCOUNTER → 2021-03-31 11:06 | Outpatient (CLI) | payer MEDICARE, SELFPAY ==
--- NOTE | 2021-03-31 11:10 | RAD_ITS ---
History: cough, wheeze EXAMINATION/TECHNIQUE: XR Chest 2 Views: COMPARISON: September 05, 2018 FINDINGS: LINES/DEVICES: None. LUNGS: Emphysematous changes of the lungs again noted. No airspace opacification. No pneumothorax. MEDIASTINUM AND CARDIOVASCULAR STRUCTURES: Cardiac silhouette not enlarged. Central airways and mediastinal contour are unremarkable. BONES AND SOFT TISSUES: Unremarkable. RAD/Chest PA and Lateral IMPRESSION: No radiographic evidence of acute cardiopulmonary disease. COPD. at 1656 Reported and signed by: Ponce Martinez MD Electronically Signed: Ponce Martinez MD at 16:55 EST Tel , Service support ,
== END ==
LOC: RAD 11:09
PROVIDERS: PCP Internal Medicine; Referring Provider Physician Assistant; Visit Provider Physician Assistant
DX: J44.9 Chronic obstructive pulmonary disease, unspecified (principal); R05.9 Cough, unspecified; R06.2 Wheezing
CPT/HCPCS: 71046

== ENCOUNTER 2021-07-05 10:11 | Outpatient (CLI) | payer MEDICARE, SELFPAY ==
[2021-07-05 11:20] LABS: AST(SGOT) 43 U/L (15-37); Alanine Aminotransfer ALT/SGPT 56 U/L (16-61); Albumin, Serum 4.1 g/dL (3.2-5.0); Alkaline Phosphatase 87 U/L (45-117); Bilirubin, Direct 0.21 mg/dL (0.00-0.30); Cholesterol 125 mg/dL (200); Globulin 3.8 g/dL (2.2-4.2); High Density Lipoprotein 58 mg/dL; Protein, Total 7.9 g/dL (6.4-8.2); Triglycerides 47 mg/dL; Very Low Density Lipoprotein 9 mg/dL (5-40)
== END 2021-07-05 23:59 | disposition home or self-care (01) ==
LOC: LAB 10:12
PROVIDERS: PCP Internal Medicine; Referring Provider Nurse Practitioner Gerontology; Visit Provider Nurse Practitioner Gerontology
DX: E78.5 Hyperlipidemia, unspecified (principal)
CPT/HCPCS: 36415; 80061; 80076

== ENCOUNTER → 2021-11-25 | Outpatient (CLI) | payer MEDICARE, SELFPAY ==
--- NOTE | 2021-11-25 14:15 | CT_ITS ---
STUDY: LOW DOSE CT LUNG CANCER SCREENING REASON FOR EXAM: Male, 71 years old. 61-96-ixel-year history. Former smoker stopped 20 years ago. Shortness of breath with exertion. Morning cough. RADIATION DOSAGE (If Supplied By Facility): CTDIvol = ( 3.02 ) mGy, DLP = ( 112.49 ) mGycm TECHNIQUE: No contrast was administered. Low dose technique was utilized (average mAS-38 and kVp 120). 1.25 mm axial source images with a slice interval of 1.25-mm were reconstructed in lung windows. 2.5 mm axial source images with a slice interval of 2.5-mm were reconstructed in lung windows. 5.0 mm axial source images with a slice interval of 5.0-mm were reconstructed in soft tissue windows. COMPARISON: , 03/31/2021. CT of the chest, 08/19/2020. NODULES: Total lung nodules (excluding granulomas): 0 Emphysema: Diffuse stable emphysematous changes. Endobronchial lesion: None Aorta: Minimal atherosclerotic changes without aneurysm or interval change. CORONARY ARTERIES: Coronary artery calcification are present Heart: Normal Pulmonary artery: Normal Mediastinal nodes: None Other chest and abdominal findings: Degenerative changes of the thoracic spine. CT/Low Dose CT Lung Screening IMPRESSION: Lung-RADS category 1 - Continue annual screening with LDCT in 12 months. IMPORTANT NOTES FOR USE: ACR Lung-RADS Version 1.1 Assessment Categories Release Date: 2018 Category: Coded 0-4 bases on nodule(s) with highest degree of suspicion. Negative screen is defined as categories 1 and 2; a positive screen is defined as categories 3 and 4. Category 3 and 4A nodules that are unchanged on interval CT should be coded as category 2, and individuals returned to screening in 12 months. Category 4X: Category 3 or 4 nodules with additional imaging findings that increase the suspicion of lung cancer, such as spiculation, GGN that doubles in size in 1 year, enlarged lymph notes, etc. Category Modifiers: S (significant finding unrelated to lung cancer) Electronically Signed: Nabor Lima DO at 22:56 EDT Reading Location ID and State: [facility] / [place] Tel [phone], Service support ,
== END | disposition home or self-care (01) ==
LOC: CT 14:13
PROVIDERS: PCP Internal Medicine; Visit Provider Nurse Practitioner Acute Care
DX: Z87.891 Personal history of nicotine dependence (principal)
CPT/HCPCS: 71271

== ENCOUNTER → 2022-03-01 | Outpatient (CLI) | payer MEDICARE, SELFPAY ==
[2022-03-01 15:18] LABS: Absolute Lymphocyte Count 1.15 X10^3/uL (0.83-4.51); Absolute Neutrophil Count 6.4 X10^3/uL (2.0-7.7); Basophil# 0.04 X10^3/uL; Basophil% 0.5 % (0-1); Eosinophil# 0.19 X10^3/uL; Eosinophils% 2.1 % (0-5); Hematocrit 45.5 % (40-54); Lymphocyte # 1.15 X10^3/ul (0.83-4.51); Mean Corpuscular Hgb 29.4 pg (27.0-32.0); Mean Corpuscular Volume 89.2 fL (80-94); Mean Platelet Vol. 10.3 fl (6.2-12.0); Monocyte# 1.02 X10^3/uL; Monocyte% 11.5 % (0-10); NRBC Flagged by Analyzer 0 % (0-5); Neutrophil # 6.39 X10^3/uL (2.7-7.7); Neutrophil % 72.2 % (47-70); Platelet Count 293 K/mm3 (150-450); RBC Distribution Width CV 13.5 % (11.6-14.6); RBC Distribution Width SD 44.2 fl (35.1-43.9); White Blood Count 8.9 K/mm3 (4.4-11.0)
[2022-03-01 15:45] LABS: AST(SGOT) 43 U/L (15-37); Alanine Aminotransfer ALT/SGPT 54 U/L (16-61); Albumin, Serum 3.9 g/dL (3.2-5.0); Alkaline Phosphatase 86 U/L (45-117); Anion Gap 9 (5-15); BUN 16 mg/dL (7-18); BUN/Creat Ratio 18.1 RATIO (10-20); Calcium,Total 9.2 mg/dL (8.5-10.1); Chloride 105 mmol/L (98-107); Cholesterol 144 mg/dL (200); Creatinine, Serum 0.88 mg/dL (0.70-1.30); EST Glomerular Filtration Rate 90 mL/min (>60); Est Glom Filt Rate - Afr Amer 109 mL/min (>60); Ferritin 161 ng/mL (26-388); Globulin 4.1 g/dL (2.2-4.2); Glucose 106 mg/dL (74-106); High Density Lipoprotein 65 mg/dL; Iron 88 ug/dL (65-175); Iron Binding Capacity,Total 306 ug/dL (250-450); PERCENT IRON SATURATION 28.8 % (15.0-55.0); PSA,Total - Annual Screen 1.19 ng/mL (0.00-4.00); Potassium 3.9 mmol/L (3.5-5.1); Sodium Level 137 mmol/L (136-145); Thyroid Stim Hormone (TSH) 3.85 uIU/mL (0.358-3.74); Triglycerides 115 mg/dL; Very Low Density Lipoprotein 23 mg/dL (5-40)
== END | disposition home or self-care (01) ==
LOC: BIMLAB 12:02
PROVIDERS: PCP Internal Medicine; Referring Provider Nurse Practitioner Family; Visit Provider Nurse Practitioner Family
DX: Z00.00 Encounter for general adult medical examination without abnormal findings (principal); J44.9 Chronic obstructive pulmonary disease, unspecified; I31.4 Cardiac tamponade; I10 Essential (primary) hypertension; I25.10 Atherosclerotic heart disease of native coronary artery without angina pectoris; G25.81 Restless legs syndrome; Z98.890 Other specified postprocedural states; N40.0 Benign prostatic hyperplasia without lower urinary tract symptoms; Z12.5 Encounter for screening for malignant neoplasm of prostate
CPT/HCPCS: 36415; 80053; 80061; 82728; 83540; 83550; 84153; 84443; 85025; G0103

== ENCOUNTER 2022-03-12 11:02 | Emergency (ER) | payer MEDICARE, SELFPAY ==
[2022-03-12 11:04] VITALS: BP 143/99; PULSE 77; RESP 16; TEMP 35.9; O2SAT 100; BMI 24.7
--- NOTE | 2022-03-12 11:08 | ED.RN ---
Dr. Jarquin and Dr. Coleman informed of pt sx on triage. request to have pt seen first. no stroke team in triage.
--- NOTE | 2022-03-12 11:17 | EKG12_ITS ---
Test Reason : Blood Pressure : / mmHG Vent. Rate : 075 BPM Atrial Rate : 075 BPM P-R Int : 150 ms QRS Dur : 116 ms QT Int : 404 ms P-R-T Axes : 072 061 045 degrees QTc Int : 451 ms Sinus rhythm with occasional Premature ventricular complexes Incomplete right bundle branch block Nonspecific T wave abnormality Abnormal ECG Confirmed by JANES MARTINEZ, EASTON ([id number]), offline editor VANCE PAIGE ([id number]) on 03/14/2022 11:57:10 AM Referred By: Confirmed By:EASTON MARRERO MD
--- NOTE | 2022-03-12 11:18 | CT_ITS ---
HISTORY: Neuro deficit, acute, stroke suspected. TECHNIQUE: Routine carotid and [place] angiogram protocol was performed after the intravenous administration of 100 mL Isovue-370. NASCET criteria using the distal ICAs for comparison were used for evaluation of stenoses. 3D reconstructions were reviewed. A radiation dose optimization technique was used for this scan .1534 images. COMPARISON: CT head same day. FINDINGS: AORTIC ARCH AND BRANCHES: Mild atherosclerosis. RIGHT CCA: Minimal calcified plaque at the bifurcation. No occlusion, significant stenosis or dissection. RIGHT ICA: No occlusion, significant stenosis or dissection. LEFT CCA: Mild less than 20% stenosis from noncalcified plaque at the bifurcation. No occlusion, significant stenosis or dissection. LEFT ICA: Mild less than 20% stenosis of the origin with small ulceration. No occlusion, significant stenosis or dissection. RIGHT VERTEBRAL ARTERY: No occlusion, significant stenosis or dissection. LEFT VERTEBRAL ARTERY: Mild calcified plaque at the origin. No occlusion, significant stenosis or dissection. SOFT TISSUES: Small hypodensities in the subsegmental upper lobe pulmonary artery branches with motion artifact noted. Emphysema in the lung apices. ICAs: No significant stenosis at the intracranial/visualized segments. Mild calcified plaque at both carotid siphons. ACAs: No significant stenosis at the visualized segments. MCAs: No significant stenosis at the visualized segments. account manager relief: No significant stenosis at the visualized segments. BASILAR ARTERY: No significant stenosis. VERTEBRAL ARTERIES: No significant stenosis at the intradural/visualized segments. No evidence of intracranial aneurysm or vascular malformation. IMPRESSION: Possible small subsegmental upper lobe pulmonary emboli versus motion artifact. Consider CTA chest correlation. No evidence for significant stenosis or occlusion in the carotid or vertebral arteries of the neck. No evidence for large vessel occlusion or other focal vascular abnormality in the [place]. N.B. : The above Results were Read Back by Marcela Sibley MD to Edwardo Bro DO, DO, and understanding confirmed on 03/12/2022 12:15:57 (ET). Electronically Signed: Marcela Sibley MD at 12:24 EST , HISTORY: Neuro deficit, acute, stroke suspected. TECHNIQUE: Multiple axial images were obtained of the head without intravenous contrast. A radiation dose optimization technique was used for this scan. 1534 images. COMPARISON: 06/01/2017. FINDINGS: BRAIN PARENCHYMA: Multiple foci and zones of low attenuation in the bilateral cerebral white matter compatible with chronic small vessel ischemic gliosis. No acute intra-axial hemorrhage identified. CSF SPACES: Generalized volume loss. No midline shift or other significant mass effect. No acute extra-axial hemorrhage seen. OTHER: Intact calvarium. No significant air fluid levels in the paranasal sinuses or mastoid air cells. Unremarkable orbits. ASPECTS Score for Acute Strokes: 10 CT/STROKE CTA Head AND Neck W/Con IMPRESSION: No acute intracranial process identified. Chronic involutional and white matter changes. N.B. : The above Results were Read Back by Marcela Sibley MD to Edwardo Bro DO, DO, and understanding confirmed on 03/12/2022 12:15:57 (ET). Electronically Signed: Marceal Sibley MD at 12:15 EST ,
[2022-03-12 11:27] VITALS: BP 147/71; PULSE 73; RESP 13; O2SAT 95
[2022-03-12 11:30] VITALS: BP 141/76; PULSE 74; RESP 16; O2SAT 96
[2022-03-12] MEDS: diazePAM 5 MG Tablet 2.5 MG PO ×2 (11:37→14:47)
[2022-03-12 11:58] LABS: Absolute Lymphocyte Count 1.05 X10^3/uL (0.83-4.51); Absolute Neutrophil Count 5.8 X10^3/uL (2.0-7.7); Basophil# 0.04 X10^3/uL; Basophil% 0.5 % (0-1); Eosinophil# 0.14 X10^3/uL; Eosinophils% 1.8 % (0-5); Hematocrit 43.1 % (40-54); Hemoglobin 14.4 g/dL (13.0-16.5); Lymphocyte # 1.05 X10^3/ul (0.83-4.51); Lymphocyte % 13.4 % (19-41); Mean Corp Hgb Conc 33.4 g/dL (32-36); Mean Corpuscular Hgb 30.8 pg (27.0-32.0); Mean Corpuscular Volume 92.1 fL (80-94); Mean Platelet Vol. 9.9 fl (6.2-12.0); Monocyte# 0.83 X10^3/uL; Monocyte% 10.6 % (0-10); NRBC Flagged by Analyzer 0 % (0-5); Neutrophil # 5.76 X10^3/uL (2.7-7.7); Neutrophil % 73.2 % (47-70); Platelet Count 224 K/mm3 (150-450); RBC Distribution Width CV 13.7 % (11.6-14.6); RBC Distribution Width SD 46.4 fl (35.1-43.9); Red Blood Count 4.68 M/mm3 (4.6-6.2); White Blood Count 7.9 K/mm3 (4.4-11.0)
--- NOTE | 2022-03-12 11:58 | RAD_ITS ---
HISTORY: Neuro deficit, acute, stroke suspected. TECHNIQUE: XR Chest 1 View. COMPARISON: 03/31/2021. FINDINGS: CARDIOMEDIASTINAL BORDERS: Cardiac silhouette within normal limits in size. Mediastinal contour unremarkable with calcification of the aortic knob. LUNGS: Upper lobe lucency, likely COPD. Probable superimposition artifact in the perihilar regions. Mild linear opacities in the lung bases from atelectasis and scarring. PLEURA: No pleural effusion or pneumothorax seen. OSSEOUS STRUCTURES: Degenerative change. RAD/Chest 1 View IMPRESSION: Mild bibasilar atelectasis and scarring. Electronically Signed: Marcela Sibley MD at 12:27 EST ,
[2022-03-12 12:08] LABS: Anion Gap 6 (5-15); BUN 26 mg/dL (7-18); BUN/Creat Ratio 28.2 RATIO (10-20); Calcium,Total 9.3 mg/dL (8.5-10.1); Chloride 112 mmol/L (98-107); Creatinine, Serum 0.92 mg/dL (0.70-1.30); EST Glomerular Filtration Rate 86 mL/min (>60); Est Glom Filt Rate - Afr Amer 103 mL/min (>60); Estimated Creatinine Clearance 69.18 ml/min; Glucose 115 mg/dL (74-106); Potassium 4.2 mmol/L (3.5-5.1); Sodium Level 141 mmol/L (136-145); Troponin-I HS 12 pg/mL (3.0-78.0)
--- NOTE | 2022-03-12 12:11 | EDS_ITS ---
HPI History of Present Illness Chief Complaint: Dizziness Informant: patient Onset/Context/Timing Onset: Today Context: Sudden Onset Timing: Continuous Quality and Location: Positive for Difficulty with Ambulation (Off balance) Onset: Today Worsened by: Looking down and bending over Relieved by: Laying still Associated Symptoms Associated Symptoms: Positive for Nausea; Negative for Headache, Vomiting or Chest Pain Narrative Narrative: Patient presents with dizziness that began this morning when he woke up. Patient states he felt fine when he went to sleep last evening. Patient states he went to sleep around 11:30 PM. Patient states that his dizziness is worse whenever he looks down or bends over. Patient states he has a history of vertigo but states this feels different than that. Patient states he feels off balance. Patient states it is better whenever he lays still. Patient admits to some tinnitus. Patient also admits to some blurred vision of his left ear. Patient denies any hearing changes. Patient denies any headaches. PFSH PFSH Medical History Abdominal pain Abdominal pain Abnormal stress test (~06/30/18) Arthritis Asthma Atherosclerosis of coronary artery of [place] without angina pectoris Benign prostatic hyperplasia Cardiac tamponade (07/29/18) Colon enlargement Coronary artery disease COVID-19 vaccine series completed Depression with anxiety Emphysema of lung Encounter for preventative adult health care examination Essential hypertension Flu vaccine need GERD (gastroesophageal reflux disease) History of anxiety History of depression History of erectile dysfunction History of restless legs syndrome Hyperlipidemia Insomnia neck and back pain Restless leg syndrome Shingles (herpes zoster) polyneuropathy Shortness of breath Shoulder pain Stage 3 severe COPD by GOLD classification Home Medications aspirin 81 mg tablet,delayed release (Adult Aspirin Regimen) 81 mg PO DAILY 08/06/18 [History Last Taken 11/18/19 08:00 81 MG] acetaminophen 500 mg capsule 500 mg PO Q6H PRN pain #30 caps 10/02/18 [Rx Last Taken Unknown] albuterol sulfate 2.5 mg/3 mL (0.083 %) solution for nebulization 2.5 mg (3 mL) inhalation Q4H PRN Sob &/Or Wheezing #180 mL 06/15/20 [Rx Last Taken Unknown] omeprazole 20 mg capsule,delayed release 20 mg PO DAILY #90 caps 03/03/21 [Rx Last Taken Unknown] isosorbide mononitrate 30 mg tablet,extended release 24 hr 15 mg PO DAILY #45 tabs 06/23/21 [Rx Last Taken Unknown] multivitamin (One Daily Multivitamin tablet) 1 tab PO DAILY 06/23/21 [History Last Taken Unknown] furosemide 40 mg tablet 40 mg PO DAILY #30 tabs 07/22/21 [Rx Last Taken Unknown] cetirizine 10 mg capsule 10 mg PO HS #30 caps 12/17/21 [Rx Last Taken Unknown] benzonatate 100 mg capsule 200 mg PO TID PRN cough #30 caps 12/20/21 [Rx Last Taken Unknown] albuterol sulfate 90 mcg/actuation aerosol inhaler (ProAir HFA) 2 puff inhalation Q6H PRN shortness of breath or wheezing #18 grams 01/20/22 [Rx Last Taken Unknown] fluticasone fur. 100 mcg-umeclid 62.5 mcg-vilant 25 mcg inhalat.powder 1 ea inha lation DAILY #60 ea 02/28/22 [Rx Last Taken Unknown] alfuzosin 10 mg tablet,extended release 24 hr 10 mg PO DAILY #90 tabs 03/01/22 [Rx Last Taken Unknown] amlodipine 10 mg tablet 10 mg PO DAILY #90 tabs 03/01/22 [Rx Last Taken Unknown] atorvastatin 40 mg tablet 40 mg PO DAILY #90 tabs 03/01/22 [Rx Last Taken Unknown] dutasteride 0.5 mg capsule 0.5 mg PO DAILY #90 caps 03/01/22 [Rx Last Taken Unkn own] ferrous sulfate 325 mg (65 mg iron) tablet 325 mg PO DAILY #90 tabs 03/01/22 [Rx Last Taken Unknown] gabapentin 400 mg capsule 400 mg PO TID #90 caps 03/01/22 [Rx Last Taken Unknown] guaifenesin 400 mg tablet 400 mg PO Q4H PRN cough, congestion #60 tabs 03/01/22 [Rx Last Taken Unknown] montelukast 10 mg tablet 10 mg PO QPM #90 tabs 03/01/22 [Rx Last Taken Unknown] trazodone 50 mg tablet 50 mg PO QHS PRN sleep #30 tabs 03/01/22 [Rx Last Taken Unknown] pramipexole 0.25 mg tablet 0.25 mg PO QHS #90 tabs 03/07/22 [Rx Last Taken Unknown] diazepam 2 mg tablet 2 mg PO TID PRN PRN Vertigo #10 TABLETS 03/12/22 [Rx Last Taken Unknown] Allergy/AdvReac Type Severity Reaction Status Date / Time No Known Allergies Allergy Verified 03/12/22 11:03 Family History Mother Cancer leukemia Father Heart disease Myocardial infarction Sister COPD (chronic obstructive pulmonary disease) Brother COPD (chronic obstructive pulmonary disease) Cancer liver Surgical History History of ankle surgery (~2008) History of colonoscopy History of open reduction and internal fixation (ORIF) procedure Presence of stent in coronary artery (08/01/18) S/P pericardiocentesis (08/01/18) Social History Smoking Status: Former smoker quit date: 05/18/01 Tobacco: How many years used: 40 alcohol intake: former details: 2000 substance use type: former substance user Date of last use: marijuana curr ently, other drugs quit in 2008, marijuana, crack/cocaine, 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 caffeine: Yes Type: coffee Number of servings: 2 what type of physical activity do you participate in: none ROS ROS ED Constitutional Constitutional ED: Denies chills or fever(s) Eyes Eyes: Reports blurry vision left; Denies diplopia ENT ENT ED: Reports tinnitus; Denies rhinorrhea or sore throat Cardiovascular Cardiovascular: Denies chest pain or palpitations Respiratory/Chest Respiratory/Chest: Denies cough or dyspnea Gastrointestinal Gastrointestinal: Reports nausea; Denies vomiting Genitourinary Genitourinary ED: Denies dysuria or hematuria Musculoskeletal Musculoskeletal: Reports back pain; Denies neck pain Integumentary Denies abscess or rash Neurologic Neurologic: Denies headache(s) or weakness Allergic/Immunologic Allergic/Immunologic ED: Denies mouth swelling or urticaria EXAM Physical Exam Const Vital Signs: 03/12/22 11:04 03/12/22 11:27 03/12/22 11:27 Temperature 96.7 F L Temperature Source Temporal Pulse Rate 77 73 Respiratory Rate 16 13 Respiratory Effort Respiratory Pattern Blood Pressure 143/99 H 147/71 H Blood Pressure Mean 113 96 Pulse Ox 100 95 95 Oxygen Delivery Method Room Air Room Air Room Air 03/12/22 11:27 03/12/22 11:30 03/12/22 12:29 Temperature Temperature Source Pulse Rate 74 76 Respiratory Rate 16 15 Respiratory Effort Normal Non-Labored Respiratory Pattern Normal Blood Pressure 141/76 H 131/79 H Blood Pressure Mean 97 96 Pulse Ox 96 95 Oxygen Delivery Method Room Air Room Air 03/12/22 14:00 03/12/22 14:00 Temperature Temperature Source Pulse Rate 67 67 Respiratory Rate 16 16 Respiratory Effort Respiratory Pattern Blood Pressure 134/71 H 134/71 H Blood Pressure Mean 92 92 Pulse Ox 96 96 Oxygen Delivery Method Room Air Room Air Positive well nourished and well developed General Appearance ED: well developed and NAD HEENT Reports moist mucous membranes Eyes PERRL and EOMs intact bilaterally Eyes Narrative: There is nystagmus with left lateral gaze. This did reproduce some of the patient's symptoms of dizziness. Neck supple and no JVD Resp normal respiratory effort and clear to auscultation bilaterally Cardio regular rate, regular rhythm and no murmurs GI normal to inspection, nondistended, normoactive bowel sounds and non-tender Palpation: soft Extremity normal to inspection General Extremety ED: Negative for edema or tenderness General Extremity: Negative for edema Neuro oriented x3, CN's II-XII intact bilaterally and no sensory deficits noted Sensorium / Orientation: alert Motor Exam: strength 5/5 throughout Psych mental status grossly normal Skin no rashes or lesions noted MDM MDM MDM Narrative Medical decision making narrative: Patient was given IV fluids patient was given a dose of Valium here. EKG was obtained. On my interpretation, it showed a normal sinus rhythm with occasional PVCs with a rate of 75. IA interval, QRS interval, and QTc intervals were all normal. [place] was normal. There are no acute ST or T wave changes. CT scan of the brain was obtained. There is an incomplete right bundle branch block. There are nonspecific ST-T wave changes. This was unchanged compared to previous EKG dated 11/21/2019. There are chronic changes. This was interpreted by the radiologist and reviewed by myself. CTA of the head neck was obtained. There is no large vessel occlusion. There is no acute abnormality. There is a questionable pulmonary embolism in the upper lobe that could also be motion artifact. CTA of the chest was recommended to further evaluate this. Portable 1 view chest x-ray was obtained. On my interpretation, lung alva show bibasilar scarring.. There is normal cardiac silhouette. Bony thorax is normal. There is no acute process noted. Radiologist also interpreted the x- ray and agrees. CTA of the chest was obtained. There is no evidence of pulmonary embolism. Patient was still feeling dizzy on reevaluation. Patient was given a repeat dose of Valium. Patient is feeling somewhat better but still has some dizziness when he bends completely forward. CBC was within normal limits. Basic metabolic profile was within normal limits. PT with INR and PTT were within normal limits. Troponin was normal. Patient was advised that this is most likely positional vertigo. Patient was given a prescription for Valium. Patient was instructed to follow-up with his primary care physician in 5 to 7 days. Patient understood and was agreeable with the plan. All questions were answered. Lab Data Attestation: I reviewed the patient's lab results. Labs: Laboratory Results - last 24 hr 03/12/22 03/12/22 03/12/22 11:40 11:40 12:20 WBC 7.9 RBC 4.68 Hgb 14.4 Hct 43.1 MCV 92.1 MCH 30.8 MCHC 33.4 RDW Std Deviation 46.4 H RDW Coeff of Michelle 13.7 Plt Count 224 MPV 9.9 Immature Gran % (Auto) 0.500 Neut % (Auto) 73.2 H Lymph % (Auto) 13.4 L Sac % (Auto) 10.6 H Eos % (Auto) 1.8 Baso % (Auto) 0.5 Absolute Neuts (auto) 5.8 Absolute Lymphs (auto) 1.05 Nucleated RBC % 0 PT 14.1 INR 1.1 APTT 29.0 Sodium 141 Potassium 4.2 Chloride 112 H Carbon Dioxide 23.0 Anion Gap 6 BUN 26 H Creatinine 0.92 Estim Creat Clear Calc 69.18 Est GFR (MDRD) Af Amer 103 Est GFR (MDRD) Non-Af 86 BUN/Creatinine Ratio 28.2 H Glucose 115 H Calcium 9.3 Troponin I High Sens 12 Radiography Diagnostic Testing: Clinical Impression(s) from Imaging Studies Head/Neck CTA 03/12/22 11:18 IMPRESSION: No acute intracranial process identified. Chronic involutional and white matter changes. N.B. : The above Results were Read Back by Marcela Sibley MD to Edwardo Bro DO, DO, and understanding confirmed on 03/12/2022 12:15:57 (ET). Electronically Signed: Marcela Sibley MD at 12:15 EST , ADDENDUM: 03/12/22 1231 IMPRESSION: No acute intracranial process identified. Chronic involutional and white matter changes. N.B. : The above Results were Read Back by Marcela Sibley MD to Edwardo Bro DO, DO, and understanding confirmed on 03/12/2022 12:15:57 (ET). Electronically Signed: Marcela Sibley MD at 12:15 EST Reading Location ID and State: [facility] / [place] Tel , Service support , Chest X-Ray 03/12/22 11:58 IMPRESSION: Mild bibasilar atelectasis and scarring. Electronically Signed: Marcela Sibley MD at 12:27 EST , Chest CTA 03/12/22 13:22 IMPRESSION: No evidence of pulmonary embolism. Advanced emphysema with very mild scarring in the lungs. Electronically Signed: Marcela Sibley MD at 14:07 EST , EKG Initial EKG: Attestation: I personally reviewed and interpreted this EKG as follows: Interpretation: Sinus Rhythm (With occasional PVCs with a rate of 75), RBBB (Incomplete) and Non-Specific ST Changes Prior EKG tracings: available for review Prior: Unchanged (11/21/2019) Discharge Plan Triage Chief Complaint: Dizziness ED Provider: Edwardo Bro Dx/Rx/DC Orders Clinical Impression: Benign positional vertigo Prescriptions: New diazepam [diazepam] 2 MG tablet 2 mg PO TID PRN PRN (Reason: Vertigo) Qty: 10 0RF No Action aspirin [Adult Aspirin Regimen] 81 mg tablet,delayed release (DR/EC) 81 mg PO DAILY acetaminophen 500 mg capsule 500 mg PO Q6H PRN (Reason: pain) Qty: 30 0RF multivitamin [One Daily Multivitamin] Tablet 1 tab PO DAILY isosorbide mononitrate 30 mg tablet extended release 24 hr 15 mg PO DAILY Qty: 45 3RF omeprazole 20 mg capsule,delayed release(DR/EC) 20 mg PO DAILY Qty: 90 1RF Rx Instructions: Take 30 minutes before breakfast benzonatate 100 mg capsule 200 mg PO TID PRN (Reason: cough) Qty: 30 0RF alfuzosin 10 mg tablet extended release 24 hr 10 mg PO DAILY Qty: 90 3RF amlodipine 10 mg tablet 10 mg PO DAILY Qty: 90 3RF atorvastatin 40 mg tablet 40 mg PO DAILY Qty: 90 3RF dutasteride 0.5 mg capsule 0.5 mg PO DAILY Qty: 90 1RF ferrous sulfate 325 mg (65 mg iron) tablet 325 mg PO DAILY Qty: 90 3RF gabapentin 400 mg capsule 400 mg PO TID Qty: 90 3RF montelukast 10 mg tablet 10 mg PO QPM Qty: 90 3RF trazodone 50 mg tablet 50 mg PO QHS PRN (Reason: sleep) Qty: 30 3RF guaifenesin 400 mg tablet 400 mg PO Q4H PRN (Reason: cough, congestion) Qty: 60 0RF albuterol sulfate 2.5 mg /3 mL (0.083 %) solution for nebulization 2.5 mg INHALATION Q4H PRN (Reason: Sob &/Or Wheezing) Qty: 180 3RF furosemide 40 mg tablet 40 mg PO DAILY Qty: 30 11RF cetirizine 10 mg capsule 10 mg PO HS Qty: 30 6RF albuterol sulfate [ProAir HFA] 90 mcg/actuation HFA aerosol inhaler 2 puff INHALATION Q6H PRN (Reason: shortness of breath or wheezing) Qty: 18 6RF [id number] 100-62.5-25 mcg blister with device 1 ea INHALATION DAILY Qty: 60 5RF pramipexole 0.25 mg tablet 0.25 mg PO QHS Qty: 90 1RF Primary Care Provider: Sharon Osorio Referrals: Sharon Osorio MD [Primary Care Provider] - 3-5 Days Disposition Disposition: Home, Self Care
[2022-03-12 12:29] VITALS: BP 131/79; PULSE 76; RESP 15; O2SAT 95
--- NOTE | 2022-03-12 13:22 | CT_ITS ---
HISTORY: Dyspnea. TECHNIQUE: CT angiogram of the chest was performed after the intravenous administration of 75 mL Isovue-370. Post-processing of the angiographic images was performed with multiplanar reformation and 3D reconstruction. Individualized dose optimization techniques were used for this CT. 1278 images. COMPARISON: XR same day. CT 11/25/2021 FINDINGS: CENTRAL AIRWAYS: Patent. LUNGS: Moderate bullous emphysema with mild biapical calcified scarring. Mild lower lobe scarring and bronchiectasis. PLEURA: No pneumothorax or significant pleural effusion. HEART/PERICARDIUM: Heart within normal limits in size. No pericardial effusion. PULMONARY ARTERIES: No filling defect. AORTA/VESSELS: No thoracic aortic aneurysm or dissection flap. Mild atherosclerosis. MEDIASTINUM/DEAN: No pathologically enlarged lymph nodes. OSSEOUS STRUCTURES: Old left 10th and 11th rib fractures. UPPER ABDOMEN: Unremarkable. CT/CTA Chest W/WO Contrast IMPRESSION: No evidence of pulmonary embolism. Advanced emphysema with very mild scarring in the lungs. Electronically Signed: Marcela Sibley MD at 14:07 EST ,
[2022-03-12 13:50] LABS: International Normalized Ratio 1.1; Prothrombin Time (Protime)PT. 14.1 SECONDS (11.7-14.9)
[2022-03-12 14:00] VITALS: BP 134/71; PULSE 67; RESP 16; O2SAT 96
[2022-03-12 15:20] VITALS: BP 141/68; PULSE 65; RESP 23; O2SAT 95
== END 2022-03-12 15:22 | disposition home or self-care (01) ==
PROVIDERS: Emergency Provider Emergency Medicine; PCP Internal Medicine; Visit Provider Emergency Medicine
DX: R42 Dizziness and giddiness (principal); J43.9 Emphysema, unspecified; H93.19 Tinnitus, unspecified ear; I45.10 Unspecified right bundle-branch block; I10 Essential (primary) hypertension; I25.10 Atherosclerotic heart disease of native coronary artery without angina pectoris; R11.0 Nausea; E78.5 Hyperlipidemia, unspecified; H53.8 Other visual disturbances; Z87.891 Personal history of nicotine dependence
CPT/HCPCS: 36415; 70496; 70498; 71045; 71275; 80048; 84484; 85025; 85610; 85730; 93005; 99285; Q9967; A4216

== ENCOUNTER → 2022-08-05 | Outpatient (CLI) | payer MEDICARE, SELFPAY | END | disposition home or self-care (01) | LOC: LABSPEC 11:15 | PROVIDERS: PCP Internal Medicine; Referring Provider Internal Medicine Critical Care Medicine; Visit Provider Internal Medicine Critical Care Medicine | DX: J44.9 Chronic obstructive pulmonary disease, unspecified (principal) | CPT/HCPCS: 87015; 87070; 87116; 87186; 87205; 87206 ==

== ENCOUNTER → 2022-12-01 | Outpatient (CLI) | payer MEDICARE, SELFPAY ==
--- NOTE | 2022-12-01 07:19 | CT_ITS ---
STUDY: LOW DOSE CT LUNG CANCER SCREENING REASON FOR EXAM: Male, 72 years old. Former smoker. Patient smokes one half pack of cigarettes per day for 40 years. RADIATION DOSAGE (If Supplied By Facility): CTDIvol = ( 3.02 ) mGy, DLP = ( 115.51 ) mGycm TECHNIQUE: No contrast was administered. Low dose technique was utilized (average mAS-38 and kVp 120). 1.25 mm axial source images with a slice interval of 1.25-mm were reconstructed in lung windows. 2.5 mm axial source images with a slice interval of 2.5-mm were reconstructed in lung windows. 5.0 mm axial source images with a slice interval of 5.0-mm were reconstructed in soft tissue windows. COMPARISON: Comparison is made with prior study dated November 25, 2021. NODULES: No suspicious nodules are seen. Emphysema: Hyperinflation. Emphysematous changes worse in the upper lobes more prominent in the right upper lobe with bullous formation. Mild linear scarring at the left lung base. Endobronchial lesion: Aorta: CORONARY ARTERIES: Coronary artery calcification is seen. Heart: Minimally thickened anterior pericardium. Pulmonary artery: Unremarkable Mediastinal nodes: Unremarkable Other chest and abdominal findings: Degenerative changes of the thoracic vertebrae. CT/Low Dose CT Lung Screening IMPRESSION: Lung-RADS category 2 - Continue annual screening with LDCT in 12 months. IMPORTANT NOTES FOR USE: ACR Lung-RADS Version 1.1 Assessment Categories Release Date: 2018 Category: Coded 0-4 bases on nodule(s) with highest degree of suspicion. Negative screen is defined as categories 1 and 2; a positive screen is defined as categories 3 and 4. Category 3 and 4A nodules that are unchanged on interval CT should be coded as category 2, and individuals returned to screening in 12 months. Category 4X: Category 3 or 4 nodules with additional imaging findings that increase the suspicion of lung cancer, such as spiculation, GGN that doubles in size in 1 year, enlarged lymph notes, etc. Category Modifiers: S (significant finding unrelated to lung cancer) Electronically Signed: Earl Lowe MD at 11:11 EDT ,
== END | disposition home or self-care (01) ==
PROVIDERS: PCP Internal Medicine; Referring Provider Nurse Practitioner Acute Care; Visit Provider Nurse Practitioner Acute Care
DX: F17.210 Nicotine dependence, cigarettes, uncomplicated (principal)
CPT/HCPCS: 71271

== ENCOUNTER → 2022-12-12 | Outpatient (CLI) | payer MEDICARE, SELFPAY | END | disposition home or self-care (01) | LOC: LABSPEC 07:55 | PROVIDERS: PCP Internal Medicine; Referring Provider Nurse Practitioner Acute Care; Visit Provider Nurse Practitioner Acute Care | DX: F17.210 Nicotine dependence, cigarettes, uncomplicated (principal) | CPT/HCPCS: 87070; 87077; 87186; 87205 ==

== ENCOUNTER → 2023-04-20 | Outpatient (CLI) | payer MEDICARE, SELFPAY ==
[2023-04-20 16:54] LABS: Absolute Lymphocyte Count 1.98 X10^3/uL (0.83-4.51); Absolute Neutrophil Count 7.5 X10^3/uL (2.0-7.7); Basophil# 0.05 X10^3/uL; Basophil% 0.5 % (0-1); Eosinophils% 1.9 % (0-5); Hematocrit 47.9 % (40-54); Hemoglobin 16.2 g/dL (13.0-16.5); Lymphocyte # 1.98 X10^3/ul (0.83-4.51); Lymphocyte % 18.4 % (19-41); Mean Corp Hgb Conc 33.8 g/dL (32-36); Mean Corpuscular Hgb 30.1 pg (27.0-32.0); Mean Corpuscular Volume 88.9 fL (80-94); Mean Platelet Vol. 10.3 fl (6.2-12.0); Monocyte% 9.3 % (0-10); NRBC Flagged by Analyzer 0 % (0-5); Neutrophil # 7.49 X10^3/uL (2.7-7.7); Neutrophil % 69.3 % (47-70); Platelet Count 284 K/mm3 (150-450); RBC Distribution Width CV 12.7 % (11.6-14.6); Red Blood Count 5.39 M/mm3 (4.6-6.2); White Blood Count 10.8 K/mm3 (4.4-11.0)
[2023-04-20 17:29] LABS: ALB/GLOB Ratio 1.1 RATIO (0.9-2.4); AST(SGOT) 31 U/L (15-37); Alanine Aminotransfer ALT/SGPT 42 U/L (16-61); Albumin, Serum 4.1 g/dL (3.2-5.0); Alkaline Phosphatase 75 U/L (45-117); Anion Gap 8 (5-15); BUN 16 mg/dL (7-18); BUN/Creat Ratio 13.6 RATIO (10-20); Calcium,Total 8.9 mg/dL (8.5-10.1); Chloride 105 mmol/L (98-107); Cholesterol 152 mg/dL (200); Creatinine, Serum 1.18 mg/dL (0.70-1.30); EST Glomerular Filtration Rate 64 mL/min (>60); Est Glom Filt Rate - Afr Amer 78 mL/min (>60); Globulin 3.8 g/dL (2.2-4.2); Glucose 132 mg/dL (74-106); High Density Lipoprotein 53 mg/dL; PSA,Total - Annual Screen 1.61 ng/mL (0.00-4.00); Potassium 3.6 mmol/L (3.5-5.1); Protein, Total 7.9 g/dL (6.4-8.2); Sodium Level 138 mmol/L (136-145); Thyroid Stim Hormone (TSH) 3.15 uIU/mL (0.358-3.74); Triglycerides 122 mg/dL; Very Low Density Lipoprotein 24 mg/dL (5-40)
--- OUTSIDE RECORDS SUMMARY | 2023-04-20 18:05 | XMS RPT_ITS | CCD ---
Author Name Unknown Address [address] [place] [address] Organization [facility] Care Team Providers Care Heel Seat Sander Name Role Phone JIA YANG Admitting Unavailable Michael Arroyo Primary Care Unavailable UNKNOWN, PROVIDER Attending Unavailable KALLIE RAMEY Consulting Unavailable Unavailable Primary Care Provider Unavailabl e Medications Completed/Discontinued Medications Medication Drug Class(es) Dates Sig (Normalized) Sig (Original) [id number] 200 actuat albuterol 0.09 mg/actuat metered dose inhaler (1 source) beta2-Adrenergic Agonist Start: 07-30-2018 take 2 puff(s) by inhalation every four hours as needed albuterol HFA (VENTOLIN HFA) 90 mcg/actuation inhaler Inhale 2 Puffs as instructed every 4 hours as needed. 1 Inhaler 5 07/30/2018 Active Problems Problem Classification Problem Date Documented Date Episodic/Chronic Anxiety disorders (1 source) Anxiety; Translations: [Anxiety disorder, unspecified] Onset: 03-09-2009 03-09-2009 Chronic Asthma (1 source) Allergic asthma; Translations: [Unspecified asthma, uncomplicated] Onset: 10-25-2005 07-09-2009 Chronic Chronic obstructive pulmonary disease and bronchiectasis (2 sources) Simple chronic bronchitis; Translations: [Simple chronic bronchitis] Onset: 08-08-2005 04-12-2021 Chronic Disorders of lipid metabolism (1 source) Pure hypercholesterolemia; Translations: [Pure hypercholesterolemia, unspecified] Onset: 06-25-2014 06-09-2015 Chronic Essential hypertension (1 source) Hypertensive disorder; Translations: [Essential (primary) hypertension] Onset: 08-01-2018 08-04-2018 Chronic Hemorrhoids (1 source) Internal hemorrhoids; Translations: [Other hemorrhoids] 07-09-2009 Episodic Mood disorders (1 source) Depressive disorder; Translations: [Depression] Onset: 03-09-2009 03-09-2009 Chronic Osteoarthritis (1 source) Osteoarthritis of right hip joint; Translations: [Unilateral primary osteoarthritis, right hip] Onset: 02-23-2016 02-23-2016 Chronic Other hereditary and degenerative nervous system conditions (1 source) Restless legs; Translations: [Restless legs syndrome] Onset: 06-25-2014 06-25-2014 Chronic Other male genital disorders (1 source) Male erectile dysfunction, unspecified; Translations: [Impotence of organic origin] Onset: 06-25-2014 06-25-2014 Chronic Other screening for suspected conditions (not mental disorders or infectious disease) (2 sources) Patient encounter status; Translations: [Encounter for screening for malignant neoplasm of colon] Onset: 07-27-2018 07-09-2009 Episodic Char-; endo-; and myocarditis; cardiomyopathy (except that caused by tuberculosis or sexually transmitted disease) (1 source) Pericardial effusion Onset: 08-01-2018 Episodic Results Test Name Value Interpretation Reference Range Facil ity Encounters Encounter Date Encounter Type Care Provider Facility Start: 08-11-2021 ambulatory 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 Procedures Date Procedure Procedure Detail Performing Clinician Start: 08-01-2018 Electrocardiogram Start: 11-12-2015 Colonoscopy Ambika Cheema RN Work Phone: Plan of Treatment Date Care Activity Detail Author Start: 08-03-2023 LIPID SCREEN LIPID SCREEN [facility] Start: 12-16-2021 Influenza vaccination INFLUENZA (Sea son Ended) [facility] Start: 08-04-2021 DIABETES SCREEN DIABETES SCREEN [facility] Start: 04-17-2021 ADVANCE DIRECTIVE DISCUSSION ADVANCE DIRECTIVE DISCUSSION [facility] Start: 07-04-2019 ANNUAL PCP TEAM 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 DONALD DISEASE VISIT ANNUAL PCP TEAM CHRONIC DISEASE VISIT [facility] Start: 11-11-2018 Colonoscopy COLONOSCOPY [facility] Start: 11-11-2018 COLORECTAL CANCER SCREENING COLORECTAL CANCER SCREENING [facility] Start: 03-18-2001 Urine microalbumin profile DTAP,TDAP ,TD (1 - Tdap) [facility] Start: 1999 SHINGRIX VACCINE (1 of 2) SHINGRIX V ACCINE (1 of 2) [facility] Start: 1994 COLOGUARD (FIT-DNA) COLOGUARD (FIT-D NA) [facility] Start: [address] COLONOGRAPHY [facility] Start: 1994 FECAL OCCULT BLOOD FECAL OCCULT BLOO D [facility] Start: 1994 SIGMOIDOSCOPY SIG[facility]OSCOPY [facility] Start: 1967 BP CONTROLLED (<130/80) BP CONTROLLE D (<130/80) [facility] Start: 1954 COVID-19 VACCINE (1) COVID-19 VACCIN E (1) [facility] Immunizations Immunization Date Immunization Notes Care Provider Fa cili 12-27-2017 influenza, high dose seasonal, preservative-free Ambika Cheema RN Work Phone: [facility] 02-23-2016 influenza, high dose seasonal, preservative-free Ambika Cheema RN Work Phone: [facility] 02-23-2016 pneumococcal conjuga te vaccine, 13 valent Ambika Cheema RN Work Phone: [facility] 06-25-2014 pneumococcal polysaccharide vaccine, 23 valent Ambika Cheema RN Work Phone: [facility] 06-19-2002 pneumococcal polysaccharide vaccine, 23 valent Ambika Cheema RN Work Phone: [facility] Work Phone: 03-17-2001 tetanus and diphther ia toxoids, adsorbed, preservative free, for adult use (2 Lf of tetanus toxoid and 2 Lf of diphtheria toxoid) Ambika Cheema RN Work Phone: [facility] Work Phone: Payers Date Payer Category Payer Medicare [employer] MEDICARE [employer] MEDICARE PPO [id number] 2018-Present [id number] [place] [address] PPO [id number] 1950 Unknown [id number] Medicare [id number] Social History Date Type Detail Facility Tobacco smoking stat us NHIS Ex-smoker [facility] Work Phone: Start: 01-12-1962 End: 06-10-2001 History of tobacco use Current smoker [facility] Work Phone: Start: 01-12-1962 End: 06-10-2001 History of tobacco use Cigarette Smoker [facility] Work Phone: Start: 07-27-2018 Alcohol intake Current non-dr edge inker heels of alcohol (finding) [facility] Start: 01-12-2018 Tobacco Comment Parents smoked in childhood home. [facility] Start: 1950 Sex Assigned At Not on file C [facility] Progress note 08-11-2021 Note Date & Type Note Facility 08-11-2021 Note HNO ID: [id number] Author: Ambika Cheema RN Service: ? Author Type: Registered Nurse Type: Progress Notes Filed: 08/11/2021 2:12 PM Note Text: [facility] Enrollment Provider Action/FYI: No PCP Patient referred by: [facility] Eddie Contact made with patient: Patient not outreached at this time. Closing: Patient does not meet criteria. PCC to reassess patient in a month. END OUTREACH [facility] History of Present illness Narrative 08-11-2021 Ambika Cheema RN - 08/11/2021 2:11 PM EDT Note Date & Type Note Facility 08-11-2021 History of Presen t illness Narrative [facility] Enrollment Provider Action/FYI: No PCP Patient referred by: [facility] Eddie Contact made with patient: Patient not outreached at this time. Closing: Patient does not meet criteria. PCC to reassess patient in a month. END OUTREACH documented in this encounter [facility] Clinical Note 08-11-2021 Note Date & Type Note Facility 08-11-2021 Note Patient Outreach ([facility] [place]) ALVINANITA Radha ([id number]) 1950 M Date Time Provider Department 08/11/21 AMBIKA CHEEMA During your visit today, we recorded the following information about you: Ambika Cheema RN 08/11/2021 2:12 PM Signed [email or web address] Enrollment Provider Action/FYI: No PCP Patient referred by: [facility] Eddie Contact made with patient: Patient not outreached at this time. Closing: Patient does not meet criteria. PCC to reassess patient in a month. END OUTREACH Allergies As of Date: 08/11/2021 (No Known Allergies) Date Reviewed: 08/01/2018 Reviewed by: Cinda (Rn) JANICE Rush - Fully Assessed Reason for Visit: Community Monitoring Outreach [Other] Cmt: Aguilar [facility] Prescriptions as of 08/11/2021 - TRELEGY ELLIPTA 100-62.5-25 mcg dsdv Inhale 1 Puff as instructed once daily as needed. - tiZANidine (ZANAFLEX) 4 mg tablet Take 1 tablet by mouth every 6 hours as needed. - alfuzosin SR (UROXATRAL) 10 mg 24 hr tablet Take 1 tablet by mouth once daily. - citalopram (CELEXA) 20 mg tablet Take 1 tablet by mouth once daily. - amLODIPine (NORVASC) 10 mg tablet Take 1 tablet by mouth once daily. - atorvastatin (LIPITOR) 40 mg tablet Take 1 tablet by mouth daily at bedtime. - aspirin, enteric coated (ASPIRIN, ENTERIC COATED) 81 mg EC tablet Take 81 mg by mouth once daily. - ticagrelor (BRILINTA) 90 mg tablet Take 1 tablet by mouth twice daily. - albuterol HFA (VENTOLIN HFA) 90 mcg/actuation inhaler Inhale 2 Puffs as instructed every 4 hours as needed. - Tadalafil (CIALIS) 10 mg tablet Take 1 tablet by mouth as needed (30 minutes prior intercourse.). - gabapentin (NEURONTIN) 300 mg capsule Take 1 capsule by mouth three times daily for 30 days. - pramipexole (MIRAPEX) 0.25 mg tablet Take 1 tablet by mouth daily at bedtime. Problem List As Of Date 08/11/2021 Noted Resolved Simple chronic bronchitis (HCC) [J41.0] 10/25/2005 EXTRINSIC ASTHMA UNSPECIFIED [J45.909] 10/25/2005 INT HEMORRHOID W/O COMPL [K64.8] SCREENING MAL NEOP-COLON [Z12.11] Depression [F32.A] 03/09/2009 Anxiety [F41.9] 03/09/2009 RLS (restless legs syndrome) [G25.81] 06/25/2014 Erectile dysfunction [N52.9] 06/25/2014 Pure hypercholesterolemia [E78.00] 06/25/2014 Primary osteoarthritis of right hip [M16.11] 02/23/2016 Abnormal stress test, small area of mild ischem*07/27/2018 Angina pectoris, crescendo (HCC) [I20.0] 08/01/2018 08/04/2018 S/P drug eluting coronary stent placement [Z95.*08/01/2018 08/04/2018 Pericardial effusion [I31.3] 08/01/2018 08/04/2018 Coronary artery disease of igiugig artery with s*08/01/2018 08/04/2018 HTN (hypertension) [I10] 08/01/2018 COPD (chronic obstructive pulmonary disease) (H*08/08/2005 Encounter Status:Closed by AMBIKA CHEEMA on 08/11/21 [facility] Progress note 08-26-2020 Note Date & Type Note Facility 08-26-2020 Note HNO ID: [id number] Author: Teo De La Cruz RN Service: ? Author Type: Registered Nurse Type: Progress Notes Filed: 08/26/2020 1:42 PM Note Text: [facility] Enrollment Provider Action/FYI: NO PCP Patient referred by: PCC/PCP referral Contact made with patient: Patient not outreached at this time. Closing: Patient does not meet criteria. PCC to reassess patient in a month. END OUTREACH [facility] Clinical Note 08-26-2020 Note Date & Type Note Facility 08-26-2020 Note Patient Outreach ([facility] [place]) ANITA GUZMAN ([id number]) 1950 M Date Time Provider Department 08/26/20 TEO DE LA CRUZ During your visit today, we recorded the following information about you: Teo De La Cruz RN 08/26/2020 1:42 PM Signed [facility] Enrollment Provider Action/FYI: NO PCP Patient referred by: PCC/PCP referral Contact made with patient: Patient not outreached at this time. Closing: Patient does not meet criteria. PCC to reassess patient in a month. END OUTREACH Allergies As of Date: 08/26/2020 (No Known Allergies) Date Reviewed: 08/01/2018 Reviewed by: Cinda (Rn) JANICE Rush - Fully Assessed Reason for Visit: Community Monitoring Outreach [Other] Cmt: INTAKE Primary Visit Diagnosis:Chronic bronchitis, unspecified chronic bronchitis type (HCC) [J42] Prescriptions as of 08/26/2020 Sig: TRELEGY ELLIPTA 100 MCG-62.5 * Inhale 1 Puff as instructed o* TIZANIDINE 4 MG TABLET Take 1 tablet by mouth every * ALFUZOSIN ER 10 MG TABLET,EXT* Take 1 tablet by mouth once d* CITALOPRAM 20 MG TABLET Take 1 tablet by mouth once d* AMLODIPINE 10 MG TABLET Take 1 tablet by mouth once d* ATORVASTATIN 40 MG TABLET Take 1 tablet by mouth daily * ASPIRIN 81 MG TABLET,DELAYED * Take 81 mg by mouth once sergio* TICAGRELOR 90 MG TABLET Take 1 tablet by mouth twice * ALBUTEROL SULFATE HFA 90 MCG/* Inhale 2 Puffs as instructed * TADALAFIL 10 MG TABLET Take 1 tablet by mouth as nee* GABAPENTIN 300 MG CAPSULE Take 1 capsule by mouth three* PRAMIPEXOLE 0.25 MG TABLET Take 1 tablet by mouth daily * Problem List As Of Date 08/26/2020 Noted Resolved Simple chronic bronchitis (HCC) [J41.0] 10/25/2005 EXTRINSIC ASTHMA UNSPECIFIED [J45.909] 10/25/2005 INT HEMORRHOID W/O COMPL [K64.8] SCREENING MAL NEOP-COLON [Z12.11] Depression [F32.9] 03/09/2009 Anxiety [F41.9] 03/09/2009 RLS (restless legs syndrome) [G25.81] 06/25/2014 Erectile dysfunction [N52.9] 06/25/2014 Pure hypercholesterolemia [E78.00] 06/25/2014 Primary osteoarthritis of right hip [M16.11] 02/23/2016 Abnormal stress test, small area of mild ischem*07/27/2018 Angina pectoris, crescendo (HCC) [I20.0] 08/01/2018 08/04/2018 S/P drug eluting coronary stent placement [Z95.*08/01/2018 08/04/2018 Pericardial effusion [I31.3] 08/01/2018 08/04/2018 Coronary artery disease of igiugig artery with s*08/01/2018 08/04/2018 HTN (hypertension) [I10] 08/01/2018 COPD (chronic obstructive pulmonary disease) (H*08/08/2005 Encounter Status:Closed by TEO DE LA CRUZ on 08/26/20 [facility] History of Past illness Narrative 08-01-2018 Note Date & Type Note Facility documented as of this encounter (statuses as of 08/11/2021) [facility] Summary Purpose Family History No Family History Records FoundNo Family History Records FoundNo Family History Records Found Advance Directives No Advanced Directives Records FoundDocuments on File Type Date Recorded 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 Patient examined. Discussed with the resident and the patient. Plan as outlined. Jia Bang MD Cardiovascular Intensive Care Service Discharge Summary PATIENT NAME: Anita Guzman ADMISSION DATE: 08/01/2018 DISCHARGE DATE: August 04, 2018 [place] Attending: Seferino Peters Primary Care Physician: Dr. Michael Arrooy Length of Stay: 3 days Primary Diagnosis: (R94.39) Abnormal stress test (I31.4) Cardiac tamponade (I31.3) Pericardial effusion Secondary Diagnoses/ Problem List: Patient Active Hospital Problem List: HTN (hypertension) (08/01/2018) Reason f (more content not included)... Additional Source Comments (unrecognized sect ion and content) No Status Records FoundNo Status Records FoundNo Status Records Found INFORMATION SOURCE (unrecogn ized section and content) DATE CREATED AUTHOR AUTHOR'S ORGANIZ ATION 09/05/2018 [facility] DATE CREATED AUTHOR AUTHOR'S ORGANIZ ATION 08/14/2021 [facility] Source Comments (unrecognize d section and content) In the event this informatio n is protected by the Federal Confidentiality of Alcohol and Drug Abuse Patient Records regulations: The Federal rules restrict any use of the information to criminally investigate or prosecute any alcohol or drug abuse patient.[facility] Reason for Visit (unrecogniz ed section and content) FOR RECORDS PERTAINING TO PATIENTS WHO ARE OR HAVE BEEN ENROLLED IN A CHEMICAL DEPENDENCY/SUBSTANCEABUSE PROGRAM, SOME INFORMATION MAY BE OMITTED. This clinical summary was aggregated from multiple sources. Caution should be exercised in using it in the provision of clinical care. This summary normalizes information from multiple sources, and as a consequence, information in this document may materially change the coding, format and clinical context of patient data. In addition, data may be omitted in some cases. CLINICAL DECISIONS SHOULD BE BASED ON THE PRIMARY CLINICAL RECORDS. [facility] bulletn. [facility]. provides no warranty or guarantee of the accuracy or completeness of information in this document.
== END | disposition home or self-care (01) ==
LOC: BIMLAB 15:41
PROVIDERS: PCP Internal Medicine; Referring Provider Internal Medicine; Visit Provider Internal Medicine
DX: I10 Essential (primary) hypertension (principal); E78.5 Hyperlipidemia, unspecified; N40.0 Benign prostatic hyperplasia without lower urinary tract symptoms
CPT/HCPCS: 36415; 80053; 80061; 84153; 84443; 85025; G0103

== ENCOUNTER → 2023-11-13 | Outpatient (CLI) | payer MEDICARE, MEDICAID, SELFPAY ==
[2023-11-13 12:16] LABS: Absolute Neutrophil Count 6.8 X10^3/uL (2.0-7.7); Basophil# 0.06 X10^3/uL; Basophil% 0.6 % (0-1); Eosinophils% 2.2 % (0-5); Lymphocyte % 14.1 % (19-41); Mean Corp Hgb Conc 33.3 g/dL (32-36); Mean Corpuscular Hgb 28.7 pg (27.0-32.0); Mean Corpuscular Volume 86.2 fL (80-94); Monocyte# 0.84 X10^3/uL; Monocyte% 9.1 % (0-10); NRBC Flagged by Analyzer 0 % (0-5); Neutrophil # 6.75 X10^3/uL (2.7-7.7); Neutrophil % 72.9 % (47-70); Platelet Count 308 K/mm3 (150-450); RBC Distribution Width CV 13.2 % (11.6-14.6); Red Blood Count 5.22 M/mm3 (4.6-6.2); White Blood Count 9.3 K/mm3 (4.4-11.0)
[2023-11-13 12:39] LABS: Anion Gap 6 (5-15); BUN 10 mg/dL (7-18); Calcium,Total 9.5 mg/dL (8.5-10.1); Chloride 107 mmol/L (98-107); EST Glomerular Filtration Rate 78 mL/min (>60); Est Glom Filt Rate - Afr Amer 94 mL/min (>60); Glucose 133 mg/dL (74-106); Potassium 3.9 mmol/L (3.5-5.1); Sodium Level 136 mmol/L (136-145)
[2023-11-14 10:26] LABS: Hemoglobin A1c 5.8 % (3.8-5.6)
== END | disposition home or self-care (01) ==
LOC: BIMLAB 11:15
PROVIDERS: PCP Internal Medicine; Referring Provider Internal Medicine; Visit Provider Internal Medicine
DX: I10 Essential (primary) hypertension (principal); R73.9 Hyperglycemia, unspecified
CPT/HCPCS: 36415; 80048; 83036; 85025

== ENCOUNTER → 2023-12-25 | Outpatient (CLI) | payer MEDICARE, MEDICAID, SELFPAY ==
--- NOTE | 2023-12-25 12:53 | CT_ITS ---
EXAM: CT CHEST, LUNG CANCER SCREENING WITHOUT INTRAVENOUS CONTRAST CLINICAL INDICATION: smoking history TECHNIQUE: Helically acquired images were obtained of the chest without intravenous contrast using low dose (LDCT) lung cancer screening protocol. This CT exam was performed using one or more of the following dose reduction techniques: automated exposure control, adjustment of the mA and/or kV according to patient size, and/or use of iterative reconstruction technique. COMPARISON: 12/01/2022 FINDINGS: LUNGS AND PLEURAL SPACES: There are emphysematous changes in both lungs. No mass. No pleural effusion or thickening. No pneumothorax. HEART: Unremarkable. Heart size is normal. No pericardial effusion. No significant coronary artery calcifications. MEDIASTINUM: Unremarkable. No mediastinal or hilar adenopathy. Esophagus is unremarkable. No hiatal hernia. THYROID: Unremarkable. No thyroid lesions. BONES/JOINTS: Unremarkable. No suspicious lytic or blastic abnormality. VASCULATURE: Unremarkable. Thoracic aorta is non-dilated. LYMPH NODES: Unremarkable. No enlarged lymph nodes. CT/Low Dose CT Lung Screening IMPRESSION: No acute pulmonary abnormality. There are no pulmonary nodules. There are stable emphysematous changes in both lungs. Lung-RADS score: 1 - Recommend continued annual screening with a low-dose CT (LDCT) in 12 months. Electronically Signed: Marcos Benitez MD at 0:03 EDT ,
--- NOTE | 2023-12-25 14:11 | ST.MBS ---
Modified Barium Swallow Patient Information Study Date: 12/25/23 Study Time: 13:00 Direct Billable Minutes: 90 Total Minutes procedure & reportin Diagnosis: Dysphagia R13.10 Referring Physician: Sharon Osorio Reason for Referral: Objectively assess swallow function, assess risk for aspiration, and determine recommendations for least restrictive diet textures and compensatory strategies to improve safety of swallow. Medical History: PMH per chart review (See EMR for full PMH): Dysphagia, URI, acute bronchitis, GERD, abdominal pain, COPD, COVID-19, Smoker, CAD, HTN, HLD, chest pain, insomnia. Per patient, he believes he had TIA 2018, but had no official CVA work up as he did not go to the ED at the time despite friends encouraging him to do so. He also reported PNA in 2008. Patient reports swallowing difficulty for the past 6-7 months, ~1X/month characterized by sensation of food particles (e.g. crackers, spaghetti) going down the wrong way or getting hung up in the base of his throat. He had a coughing spell after consuming spaghetti with expectoration of small piece of spaghetti hours later. Odynophagia (pain level 3-4/10) when foods feel caught in his throat. He also reports having frequent chest colds w/ current symptoms of runny nose and coughing since 12/23/2023 - Patient is going to urgent care after this appointment per patient. Current Diet Ordered: Regular textures / Thin liquids Mental Status: WNL Respiratory Status: Oxygenating on Room Air Penetration-Aspiration Scale Penetration-Aspiration Scale: OBJECTIVE ASSESSMENT OF SWALLOW FUNCTION (QUANTITATIVE ? PER TRIAL): PENETRATION / ASPIRATION SCALE (HARTMAN): 1 = does not enter airway 2 = enters airway/above vocal folds/ejected 3 = enters airway/above vocal folds/not ejected 4 = enters airway/contacts vocal folds/ejected 5 = enters airway/contacts vocal folds/not ejected 6 = enters airway/below vocal folds/ejected 7 = enters airway/below vocal folds/not ejected despite effort 8 = enters airway/below vocal folds/no effort VIDEOFLOROSCOPIC SCALE SCORE (HARTMAN): Grade I = aspiration of material that has penetrated into the laryngeal vestibule, intact cough reflex Grade II = aspiration < 10 % of the bolus, intact cough reflex Grade III = aspiration of < 10 % of the bolus, reduced cough reflex or aspiration of > 10 % of the bolus, intact cough reflex Grade IV = aspiration of > 10 % of the bolus, reduced cough reflex Penetration-Aspiration Scale Score Thin Liquid via teaspoon: Result: 1= does not enter airway Thin Liquid via teaspoon Trial 2: Result: 1= does not enter airway Thin Liquid via large single sip: cup: Result: 3= enters airways/above vocal folds/not ejected (trace) [place] Thick Liquid via large single sip: cup: Result: 1= does not enter airway Pudding via teaspoon: Result: 1= does not enter airway 1/2 Cookie: Result: 1= does not enter airway Comment: Esophageal screen - Retention of cookie in the mid and lower esophagus. Thin Liquid via sequential sips:straw: Result: 3= enters airways/above vocal folds/not ejected Comment: Esophageal screen - Cookie had cleared. Mild retention of liquids in lower esophagus. Retrograde flow of barium through LES to lower esophagus. Thin Liquid via small single sip: cup Effortful swallow: Result: 1= does not enter airway Oral Phase Labial Seal: No Labial Escape Tongue Control During Bolus Hold: Posterior escape of less than half of bolus Bolus Preparation/Mastication: Timely and efficient chewing and mashing Bolus Transport/Lingual Motion: Repetitive/disorganized tongue motion Oral Residue: Residue collection on oral structures Pharyngeal Phase Initiation of Pharyngeal Swallow: Bolus head in pyriforms Soft Palate Elevation: Trace column of contrast/air between soft palate and pharyngeal wall Laryngeal Elevation: Partial superior movement thyroid cart/partial apprx aryt-epig petiole Anterior Hyoid Excursion: Partial anterior movement Epiglottic Movement: Complete inversion Laryngeal Vestibule Closure at Height of Swallow: Incomplete; narrow column of air/contrast in laryngeal vestibule Pharyngeal Stripping Wave: Present - diminished Pharyngoesophageal Segment Opening: Parital distension and partial duration; parital obstruction of flow Tongue Base Retraction: Wide column of contrast between tongue base & post. pharyngeal wall Pharyngeal Residue: Collection of residue within or on pharyngeal structures Esophageal Phase Esophageal Clearance: Esophageal retention w/ retrograde flow below pharyngoesophageal seg. Treatment Strategies Effects of treatment strategies attemped:: Effortful = effective. Liquid wash = effective. Diagnosis/Impression Diagnosis: Mild oropharyngeal dysphagia R13.12; Esophageal dysphagia R13.14 Impression: The oral phase is primarily marked by... -Decreased bolus control with premature posterior loss of <1/2 of thin liquids to the pyriforms prior to swallow onset. -Lingual pumping for A-P transport. -Piecemeal deglutition for all consistencies. The pharyngeal phase is primarily marked by... -Decreased tongue base retraction, pharyngeal stripping wave, and UES opening/duration with resulting mild-moderate pharyngeal residues requiring multiple swallows to clear the pharynx of residues. -Decreased airway closure due to decreased anterior hyoid excursion and UES opening/duration. -Laryngeal penetration of thin liquids w/o full ejection after the swallow, placing him at increased risk for post prandial aspiration. No aspiration observed during the study. Effortful swallow was effective in decreasing aspiration risk w/ thin liquids. The esophageal phase is primarily marked by... -CP bar at the level of C5, which did not appear to impact bolus clearance through the UES. -Retention of cookie in the mid and lower esophagus. -Mild retention of liquids in lower esophagus. Retrograde flow of barium through LES to lower esophagus. Recommendations Diet: Regular Textures and Thin Liquids Compensatory Strategies: Small Bites, Small Sips (Effortful swallows), Slow Rate, Multiple Swallows (Patient independently used during MBSS), Alternate bites/solids and sips/liquids (Sip after every 1-2 bites), Sitting upright and Remain sitting upright for 30 minutes after PO intake Recommend Repeat Modified Barium Swallow: TBD Need for Skilled Speech Therapy Services: Yes Comment: -Train the patient in use of strategies to decrease risk for aspiration and reflux aspiration. -Ongoing assessment of diet tolerance of recommended textures. -Train the patient in oropharyngeal exercise program to improve lingual coordination, airway closure, tongue base retraction, and pharyngeal motility (lingual coordination, Maryann, Paco, Effortful). Recommended Referrals: GI Consult Education Completed: 1. Described result of evaluation., 2. Pt understands evaluation & agrees with goals and treatment plan. and 7. Pt requires further education on strategies & risks. Status Active ST Patient: Active Contact Information [facility] Speech Therapy:: Louise Adame M.A. [employer]WORK ARCHITECT? Speech-Language Pathologist?? [facility] [address] [place] [address]? [email or web address]?? [phone]
== END | disposition home or self-care (01) ==
PROVIDERS: PCP Internal Medicine; Referring Provider Internal Medicine; Visit Provider Internal Medicine
DX: R13.10 Dysphagia, unspecified (principal); F17.210 Nicotine dependence, cigarettes, uncomplicated
CPT/HCPCS: 71271; 74230; 92611

== ENCOUNTER → 2024-05-16 | Outpatient (CLI) | payer MEDICARE, MEDICAID, SELFPAY ==
[2024-05-16 15:31] LABS: Absolute Lymphocyte Count 1.22 X10^3/uL (0.83-4.51); Absolute Neutrophil Count 7.3 X10^3/uL (2.0-7.7); Basophil# 0.06 X10^3/uL; Basophil% 0.6 % (0-1); Eosinophils% 2.1 % (0-5); Hematocrit 45.7 % (40-54); Hemoglobin 15.4 g/dL (13.0-16.5); Lymphocyte # 1.22 X10^3/ul (0.83-4.51); Lymphocyte % 12.6 % (19-41); Mean Corp Hgb Conc 33.7 g/dL (32-36); Mean Corpuscular Hgb 29.4 pg (27.0-32.0); Mean Corpuscular Volume 87.2 fL (80-94); Mean Platelet Vol. 10.6 fl (6.2-12.0); Monocyte# 0.92 X10^3/uL; Monocyte% 9.5 % (0-10); NRBC Flagged by Analyzer 0 % (0-5); Neutrophil # 7.25 X10^3/uL (2.7-7.7); Neutrophil % 74.5 % (47-70); Platelet Count 258 K/mm3 (150-450); RBC Distribution Width SD 41.6 fl (35.1-43.9); Red Blood Count 5.24 M/mm3 (4.6-6.2); White Blood Count 9.7 K/mm3 (4.4-11.0)
[2024-05-16 16:07] LABS: ALB/GLOB Ratio 1.1 RATIO (0.9-2.4); AST(SGOT) 30 U/L (15-37); Alanine Aminotransfer ALT/SGPT 39 U/L (16-61); Alkaline Phosphatase 72 U/L (45-117); Anion Gap 6 (5-15); BUN 12 mg/dL (7-18); BUN/Creat Ratio 11.2 RATIO (10-20); Calcium,Total 9.4 mg/dL (8.5-10.1); Chloride 108 mmol/L (98-107); Cholesterol 148 mg/dL (200); Creatinine, Serum 1.07 mg/dL (0.70-1.30); EST Glomerular Filtration Rate 72 mL/min (>60); Est Glom Filt Rate - Afr Amer 87 mL/min (>60); Globulin 3.7 g/dL (2.2-4.2); Glucose 120 mg/dL (74-106); High Density Lipoprotein 60 mg/dL; PSA,Total - Annual Screen 1.83 ng/mL (0.00-4.00); Protein, Total 7.7 g/dL (6.4-8.2); Sodium Level 139 mmol/L (136-145); Triglycerides 175 mg/dL; Very Low Density Lipoprotein 35 mg/dL (5-40)
== END | disposition home or self-care (01) ==
LOC: BIMLAB 14:23
PROVIDERS: PCP Internal Medicine; Referring Provider Internal Medicine; Visit Provider Internal Medicine
DX: I10 Essential (primary) hypertension (principal); N40.0 Benign prostatic hyperplasia without lower urinary tract symptoms
CPT/HCPCS: 36415; 80053; 80061; 84153; 85025; G0103

== ENCOUNTER → 2024-10-08 | Outpatient (CLI) | payer MEDICARE, MEDICAID, SELFPAY ==
[2024-10-08 12:46] VITALS: PULSE 84; PULSE 90; PULSE 91; PULSE 92; PULSE 93; PULSE 94; PULSE 96; PULSE 97; O2SAT 87; O2SAT 90; O2SAT 91; O2SAT 92; O2SAT 94
--- NOTE | 2024-10-08 12:49 | CPS ---
Patient arrived on RA and SpO2 was 87-88% at baseline. 2L continuous added at that time. Patient began walking and at the 2min joanne patient's SpO2 was 87%. 4L continuous O2 added at that time and throughout the rest of the testing. Anna Covarrubias CHIEF OF SERVICE
--- OUTSIDE RECORDS SUMMARY | 2024-10-08 22:12 | XMS RPT_ITS | CCD ---
Author Organization [facility] Care Team Providers Care Heavy Equipment Operating Engineer Name Role Phone JIA VICTORIA Admitting Unavailable Michael Arroyo Primary Care Unavailable UNKNOWN, PROVIDER Attending Unavailable KALLIE RAMEY Consulting Unavailable Dr. Sharon Osorio Primary Care Provider [phone] Dr. Sharon Osorio Referring Provider [phone] ELEN Banuelos Attending Provider Unavailab abbe Slater LANDFILL GAS COLLECTION OPERATOR, LANDFILL GAS COLLECTION OPERATOR-C Meg Attending Provider Unavailable Primary Care Provider UnavailDr. Sharon Aguilera Primary Care Provider [phone] Dr. Sharon Osorio Referring Provider [phone] Dr. Sam Hi Attending Provider ELEN Toney Attending Provider Terri LANDFILL GAS COLLECTION OPERATOR, LANDFILL GAS COLLECTION OPERATOR-C Michael Attending Provider [phone] Kacie LANDFILL GAS COLLECTION OPERATOR, LANDFILL GAS COLLECTION OPERATOR-C Sharon Attending Provider Dr. Sharon Osorio Primary Care Provider [phone] Dr. Sharon Osorio Referring Provider [phone] ELEN Anthony Attending Provider Kacie LANDFILL GAS COLLECTION OPERATOR, LANDFILL GAS COLLECTION OPERATOR-C Sharon Attending Provider Dr. Sharon Osorio Primary Care Provider [phone] Dr. Sharon Osorio Attending Provider [phone] Dr. Sharon Osorio Referring Provider [phone] Dr. Sam Hi Attending Provider Jo MARTINEZ, Dr. Herrera Primary Care Provider Dr. Sharon Osorio MD Referring Provider Ashley BABCOCK-Sergio Osman Attending Provider Fabio MARTINEZ, Dr. Ontiveros Attending Provider Sharon Savage Attending Provider Sharon Hester Referring Unavailable Oleghe, Efewongbe Primary Care Unavailable Sharon Hester Attending Unavailable Sharon Hester Referring Unavailable Oleghe, Efewongbe Primary Care Unavailable Sharon Hester Attending Unavailable Oleghe, Efewongbe Referring Unavailable Oleghe, Efewongbe Primary Care Unavailable Oleghe, Efewongbe Attending Unavailable Oleghe, Efewongbe Referring Unavailable Oleghe, Efewongbe Primary Care Unavailable Oleghe, Efewongbe Attending Unavailable Oleghe, Efewongbe Referring Unavailable Oleghe, Efewongbe Primary Care Unavailable Oleghe, Efewongbe Attending Unavailable Roof Bala BABCOCK Attending Unavailable Oleghe, Efewongbe Referring Unavailable Oleghe, Efewongbe Primary Care Unavailable Roof Bala BABCOCK Attending Unavailable Oleghe, Efewongbe Referring Unavailable Oleghe, Efewongbe Primary Care Unavailable Oleghe, Efewongbe Referring Unavailable Oleghe, Efewongbe Primary Care Unavailable Sharon Hester Attending Unavailable Weston Mccarthy Attending Unavailable Oleghe, Efewongbe Primary Care Unavailable Sergio Ramirez Attending Unavailable Oleghe, Efewongbe Referring Unavailable Oleghe, Efewongbe Primary Care Unavailable Oleghe, Efewongbe Referring Unavailable Oleghe, Efewongbe Primary Care Unavailable Oleghe, Efewongbe Attending Unavailable Roof Bala BABCOCK Attending Unavailable Oleghe, Efewongbe Referring Unavailable Oleghe, Efewongbe Primary Care Unavailable Colin Anthony Attending Unavailable Oleghe, Efewongbe Referring Unavailable Oleghe, Efewongbe Primary Care Unavailable Oleghe, Efewongbe Attending Unavailable Oleghe, Efewongbe Referring Unavailable Oleghe, Efewongbe Primary Care Unavailable Medications Current Medications Medication Drug Class(es) Dates Sig (Normalized) Sig (Original) [id number] actuat albuterol 0.09 mg/actuat metered dose inhaler (20 sources) beta2-Adrenergic Agonist Start: 02-18-2021 take 1 puff(s) by inhalation every six hours Albuterol Sulfate (Proair Hfa) 90 mcg/actuation HFA aerosol inhaler Active 2 PUFF INHALATION EVERY 6 HOURS February 18, 2021 1:44pm Start: 05-23-2019 End: 06-15-2020 take 2.5 mg by inhalation every four hours as needed for wheezing Albuterol Sulfate 2.5 mg /3 mL (0.083 %) solution for nebulization Active 2.5 mg INHALATION Q4H as needed for Sob &/Or Wheezing June 15, 2020 1:09pm Start: 12-24-2018 End: 02-19-2024 Albuterol Sulfate 90 mcg/act uation HFA aerosol inhaler Active 2 NMA INHALATION EVERY 6 HOURS as needed for shortness of breath or wheezing February 19, 2024 5:27pm Start: 12-24-2018 End: 03-15-2023 take 1 puff(s) by inhalation every six hours Albuterol Sulfate (Proair Hfa) 90 mcg/actuation HFA aerosol inhaler Active 2 PUFF INHALATION EVERY 6 HOURS March 15, 2023 10:34am Start: 08-06-2018 End: 12-24-2018 take 1 puff(s) by inhalation every four hours Albuterol Sulfate Discontinued 2 PUFF INHALATION Q4H August 06, 2018 10:23am December 24, 2018 11:47am Start: 08-06-2018 End: 12-24-2018 take 1 puff(s) by inhalation every four hours Albuterol Sulfate Discontinued 2 PUFF INHALATION Q4H August 06, 2018 11:23am December 24, 2018 12:47pm Start: 07-30-2018 take 2 puff(s) by in halation every four hours as needed albuterol HFA (VENTOLIN HFA) 90 mcg/actuation inhaler Inhale 2 Puffs as instructed every 4 hours as needed. 1 Inhaler 5 07/30/2018 Active Start: 12-31-2014 End: 08-06-2018 take 1 puff(s) by inhalation four times daily Albuterol Sulfate Discontinued 2 PUFF INHALATION 4 TIMES DAILY December 31, 2014 2:45pm August 06, 2018 11:28am Start: 12-31-2014 End: 08-06-2018 Albuterol Sulfate 8.5 GM HFA aerosol inhaler Discontinued 2 NMA INHALATION 4 TIMES DAILY as needed for Wheezing December 31, 2014 12:00am August 06, 2018 11:28am Start: 12-31-2014 End: 08-06-2018 take 1 puff(s) by inhalation four times daily Albuterol Sulfate Discontinued 2 PUFF INHALATION 4 TIMES DAILY December 30, 2014 11:00pm August 06, 2018 10:28am Comment on above: Inhale 2 Puffs as in structed every 4 hours as needed. 24 hr alfuzosin hydrochloride 10 mg extended release oral tablet (20 sources) alpha-Adrenergic Bear Start: 0 End: 0 take 1 tablet by mouth every twenty-four hours Alfuzosin 10 mg tablet extended release 24 hr Discontinued mg PO May 24, 2019 1:00am May 24, 2019 12:59pm Start: 05-24-2019 End: 05-24-2019 Alfuzosin Discontinued MG PO May 24, 2019 12:00am May 24, 2019 11:59am Start: 08-06-2018 End: 02-19-2024 take 1 tablet by mouth once daily Alfuzosin 10 mg tablet extended release 24 hr Active 10 mg PO DAILY February 19, 2024 5:27pm Comment on above: Take 1 tablet by christa th once daily. amLODIPine 10 mg oral tablet (20 sources) Dihydropyridine Calcium Channel Bear Start: 08-06-19 End: 02-19-20 take 1 tablet by mouth once daily Amlodipine 10 mg tablet Active 10 mg PO DAILY February 19, 2024 5:28pm Comment on above: Take 1 tablet by christa th once daily. aspirin 81 mg delayed release oral tablet (9 sources) Platelet Aggregation Inhibitor, Nonsteroidal Anti-inflammatory Drug Start: 08-07-19 take 1 tablet by mouth once daily Aspirin (Adult Aspirin Regimen) 81 mg tablet,delayed release (DR/EC) Active 81 mg PO DAILY August 06, 2018 12:00am Comment on above: Take 81 mg by mouth once daily. atorvastatin 40 mg oral tablet (20 sources) HMG-CoA Reductase Inhibitor Start: 08-05-19 End: 03-30-20 24 take 1 tablet by mouth once daily Atorvastatin 40 mg tablet Active 40 mg PO DAILY March 30, 2024 6:26pm Comment on above: Take 1 tablet by christa th daily at bedtime. cetirizine hydrochloride 10 mg oral capsule (20 sources) Histamine-1 Receptor Antagonist Start: 04-08-20 End: 08-20-19 25 take 1 capsule by mouth at bedtime Cetirizine 10 mg capsule Active 10 mg PO BEDTIME August 19, 2024 4:21pm diazePAM 2 mg oral tablet (5 sources) Benzodiazepine Start: 03-12-20 take 1 tablet by mouth three times daily as needed Diazepam 2 MG tablet Active 2 mg PO 3 TIMES DAILY NEEDED as needed for Vertigo March 12, 2022 1:00am dutasteride 0.5 mg oral capsule (20 sources) 5-alpha Reductase Inhibitor Start: 04-16-20 End: 09-21-19 take 1 capsule by mouth once daily Dutasteride 0.5 mg capsule Active 0.5 mg PO DAILY September 20, 2024 1:15pm Start: 04-16-2019 End: 04-16-2019 Dutasteride 0.5 mg capsule D iscontinued mg PO April 16, 2019 1:00am April 16, 2019 2:52pm Start: 04-16-2019 End: 04-16-2019 Dutasteride Discontinued MG PO April 16, 2019 12:00am April 16, 2019 1:52pm ferrous sulfate 325 mg oral tablet (20 sources) Start: 10-02-2024 take 1 tablet by mouth once daily Ferrous Sulfate (Ferosul) 325 mg (65 mg iron) tablet Active 325 mg PO daily October 02, 2024 12:00am Start: 08-26-2021 End: 05-16-2024 take 1 tablet by mouth once daily Ferrous Sulfate 325 mg (65 mg iron) tablet Discontinued 325 mg PO DAILY April 05, 2024 12:47pm May 16, 2024 2:55pm Start: 04-30-2019 End: 06-23-2021 take 1 tablet by mouth once daily Ferrous Sulfate 325 mg (65 mg iron) tablet Discontinued 325 mg PO DAILY May 25, 2021 11:21am June 23, 2021 2:11pm Dczvjzdrqdm-Aywktxbjs-Eujuzc er (6 sources) Start: 08-15-2024 Fklpyyrfvni-Azgzbqqdw-Toceng er (Trelegy Ellipta) 200-62.5-25 mcg blister with device Active 1 NMA INHALATION DAILY 60 August 15, 2024 4:51pm Start: 02-19-2024 End: 08-15-2024 Zrbzpjeyblp-Uohtxxnbm-Fftceu er (Trelegy Ellipta) 200-62.5-25 mcg blister with device Discontinued 1 NMA INHALATION DAILY 60 February 19, 2024 5:28pm August 15, 2024 4:52pm Start: 09-10-2023 End: 02-19-2024 Vmhzzqrdvxq-Vyjlenzzz-Ziesyq er (Trelegy Ellipta) 200-62.5-25 mcg blister with device Discontinued 1 NMA INHALATION DAILY September 10, 2023 4:38pm February 19, 2024 5:29pm Start: 08-08-2023 End: 09-10-2023 Lekqnlcbyru-Fabepdplh-Qcgvyg er (Trelegy Ellipta) 200-62.5-25 mcg blister with device Discontinued 1 NMA INHALATION DAILY 60 August 08, 2023 11:46am September 10, 2023 4:39pm Start: 04-12-2023 End: 08-08-2023 Cewkhpqplzv-Wnslvdjab-Fivsrc er (Trelegy Ellipta) 200-62.5-25 mcg blister with device Discontinued 1 NMA INHALATION DAILY April 12, 2023 1:00am August 08, 2023 11:46am Start: 04-12-2023 Fluticasone-Um eclidin-Vilanter (Trelegy Ellipta) 200-62.5-25 mcg blister with device Active 1 INH INHALATION DAILY April 12, 2023 12:00am gabapentin 400 mg oral capsule (20 sources) Anti-epileptic Agent Start: 09-19-2018 End: 02-19-2024 take 1 capsule by mouth three times daily Gabapentin 400 mg capsule Active 400 mg PO THREE TIMES A DAY 90 February 19, 2024 5:28pm Start: 09-17-2018 End: 09-19-2018 Gabapentin 400 mg capsule Discontinued 300 mg PO .QID 120 September 17, 2018 4:26pm September 19, 2018 10:38am Start: 09-17-2018 End: 09-19-2018 take 300 mg by mouth four times daily Gabapentin Discontinued 300 MG PO .QID 120 September 17, 2018 3:26pm September 19, 2018 9:38am Start: 02-26-2018 End: 08-06-2018 take 1 capsule by mouth once daily Gabapentin 300 MG capsule Discontinued 300 mg PO DAILY February 26, 2018 1:00am August 06, 2018 11:28am Start: 01-31-2018 End: 09-17-2018 take 1 capsule by mouth three times daily Gabapentin 300 mg capsule Discontinued 300 mg PO THREE TIMES A DAY 120 August 27, 2018 12:39pm September 17, 2018 4:27pm Comment on above: Take 1 capsule by mo [facility] three times daily for 30 days. 24 hr isosorbide mononitrate 30 mg extended release oral tablet (20 sources) Nitrate Vasodilator Start: End: take 1 tablet by mouth once daily, then take 2 tablets by mouth every twenty-four hours Isosorbide Mononitrate 30 mg tablet extended release 24 hr Active 15 mg PO DAILY January 08, 2024 8:26am Start: 06-17-2020 End: 06-22-2020 take 1 tablet by mouth once daily, then take 1 tablet by mouth every twenty-four hours Isosorbide Mononitrate 30 mg tablet extended release 24 hr Discontinued 30 mg PO DAILY June 17, 2020 1:00am June 22, 2020 6:58pm montelukast 10 mg oral tablet (20 sources) Leukotriene Receptor Antagonist Start: 04-08-2019 End: 03-18-2024 take 1 tablet by mouth once daily in the evening Montelukast 10 mg tablet Active 10 mg PO EVERY EVENING March 18, 2024 9:30am Multivitamin (One Daily Multivitamin) tablet (8 sources) Start: 06-23-2021 take 1 tablet by mouth once daily Multivitamin (One Daily Multivitamin) tablet Active 1 TABLET PO DAILY June 23, 2021 2:11pm Start: 06-23-2021 [facility] Multivitamin (One Daily Multivitamin) tablet Active 1 {tbl} PO DAILY June 23, 2021 1:00am Start: 06-23-2021 take 1 tablet by christa th once daily Multivitamin (One Daily Multivitamin) tablet Active 1 TABLET PO DAILY June 23, 2021 12:00am Start: 06-23-2021 take 1 tablet by christa th once daily Multivitamin (One Daily Multivitamin) tablet Active 1 TABLET PO DAILY June 23, 2021 1:00am omeprazole 20 mg delayed release oral capsule (20 sources) Proton Pump Inhibitor Start: 11-19-2020 End: 02-19-2024 take 1 capsule by mouth once daily 30 minutes before breakfast Omeprazole 20 mg capsule,delayed release(DR/EC) Active 20 mg PO DAILY February 19, 2024 5:29pm Take 30 minutes before breakfast Start: 08-05-2020 End: 11-19-2020 take 1 capsule by mouth once daily 30 minutes before breakfast Omeprazole 40 mg capsule,delayed release(DR/EC) Discontinued 40 mg PO DAILY August 05, 2020 12:00am November 19, 2020 4:21pm Take 30 minutes before breakfast pramipexole dihydrochloride 0.25 mg oral tablet (20 sources) Nonergot Dopamine Agonist Start: 05-13-2019 End: 11-06-2019 take 1 tablet by mouth at bedtime Pramipexole 0.5 mg tablet Discontinued 0.5 mg PO AT BEDTIME May 13, 2019 5:38pm November 06, 2019 1:11pm Start: 12-31-2014 End: 07-18-2024 take 1 tablet by mouth at bedtime Pramipexole 0.25 mg tablet Active 0.25 mg PO AT BEDTIME July 18, 2024 5:06pm Comment on above: Take 1 tablet by christa th daily at bedtime. traZODone hydrochloride 50 mg oral tablet (20 sources) Serotonin Reuptake Inhibitor Start: 3 End: take 1 tablet by mouth at bedtime Trazodone Active 0 .ROUTE .COMPLEX November 08, 2022 10:11pm take 1 tablet by mouth at bedtime if needed Start: 02-18-2021 End: 11-28-2023 take 1 tablet by mouth at bedtime Trazodone 50 mg tabl et Active 0 .ROUTE .COMPLEX 90 [place] 13th, 2024 12:14pm take 1 tablet by mouth at bedtime if needed Completed/Discontinued Medications Medication Drug Class(es) Dates Sig (Normalized) Sig (Original) acetaminophen 500 mg oral capsule (20 sources) Start: 10-02-2018 End: 10-02-2018 take 1 capsule by mouth every six hours Acetaminophen 500 mg capsule Discontinued 500 mg PO EVERY 6 HOURS October 02, 2018 8:39am October 02, 2018 8:39am Albuterol Sulfate 90 mcg/actuation HFA aerosol inhaler (1 source) Start: 08-06-2018 End: 12-24-2018 Albuterol Sulfate 90 mcg/actuation HFA aerosol inhaler Discontinued 2 NMA INHALATION Q4H as needed for Wheezing August 06, 2018 11:23am December 24, 2018 12:47pm amoxicillin 875 mg / clavulanate 125 mg oral tablet (7 sources) Penicillin-class Antibacterial Start: 06-12-2024 End: 10-02-2024 Amoxicillin-Pot Clavulanate 875-125 mg tablet Discontinued 1 {tbl} PO TWICE A DAY June 12, 2024 1:00am October 02, 2024 11:08am Start: 09-25-2023 End: 05-16-2024 Amoxicillin-Pot Clavulanate 875-125 mg tablet Discontinued 1 {tbl} PO TWICE A DAY November 05, 2023 10:15am May 16, 2024 2:51pm Start: 11-24-2022 End: 12-07-2022 Amoxicillin-Pot Clavulanate 875-125 mg tablet Discontinued 1 {tbl} PO TWICE A DAY November 24, 2022 12:00am December 07, 2022 2:18pm Start: 11-24-2022 End: 12-07-2022 take 1 tablet by mouth twice daily Amoxicillin-Pot Clavulanate Discontinued 1 TABLET PO TWICE A DAY November 23, 2022 11:00pm December 07, 2022 1:18pm azithromycin 250 mg oral tablet (9 sources) Macrolide Antimicrobial Start: 09-19-2023 End: 09-25-2023 Azithromycin 250 mg tablet Discontinued 0 PO .COMPLEX 6 September 19, 2023 12:00am September 25, 2023 10:10am For 250 mg dose pack: take 500 mg today (day 1), then 250 mg for 4 days (days 2-5) PO Start: 09-07-2022 End: 11-24-2022 Azithromycin 250 mg tablet D iscontinued 250 mg PO daily November 14, 2022 3:03pm November 24, 2022 12:29pm 2 tablets today, then 1 tablet daily on days 2 through 5 benzonatate 100 mg oral capsule (6 sources) Non-narcotic Antitussive Start: 12-20-2021 End: 01-16-2023 take 2 capsules by mouth three times daily as needed for cough Benzonatate 100 mg capsule Discontinued 200 mg PO THREE TIMES A DAY as needed for cough December 20, 2021 12:00am January 16, 2023 3:18pm Start: 12-20-2021 End: 01-16-2023 take 200 mg by mouth three times daily Benzonatate Discontinued 200 MG PO THREE TIMES A DAY December 19, 2021 11:00pm January 16, 2023 2:18pm ciprofloxacin 500 mg oral tablet (16 sources) Quinolone Antimicrobial Start: 09-05-2018 End: 10-02-2018 take 1 tablet by mouth twice daily Ciprofloxacin Hcl 500 mg tablet Discontinued 500 mg PO TWICE A DAY September 11, 2018 2:46pm October 02, 2018 8:27am citalopram 40 mg oral tablet (20 sources) Serotonin Reuptake Inhibitor Start: 12-28-2018 End: 11-06-2019 take 1 tablet by mouth once daily Citalopram 40 mg tablet Discontinued 40 mg PO DAILY December 28, 2018 9:48am November 06, 2019 1:08pm Start: 12-31-2014 End: 12-28-2018 take 1 tablet by mouth once daily Citalopram 20 mg tablet Discontinued 20 mg PO DAILY December 03, 2018 4:22pm December 28, 2018 9:48am Comment on above: Take 1 tablet by christa once daily. clopidogrel 75 mg oral tablet (16 sources) P2Y12 Platelet Inhibitor Start: 9 End: 0 take 1 tablet by mouth once daily Clopidogrel 75 mg tablet Discontinued 75 mg PO DAILY September 12, 2018 12:00am August 13, 2019 2:57pm Start: 08-08-2018 End: 09-03-2018 take 1 tablet by mouth once daily Clopidogrel 75 mg tablet Discontinued 75 mg PO DAILY August 08, 2018 12:00am September 03, 2018 2:17pm cyclobenzaprine hydrochloride 10 mg oral tablet (8 sources) Muscle Relaxant Start: 12-31-2014 End: 08-06-2018 take 1 tablet by mouth at bedtime Cyclobenzaprine 10 MG tablet Discontinued 10 mg PO AT BEDTIME December 31, 2014 12:00am August 06, 2018 11:27am Disability Placard (2 sources) Start: 03-16-2023 Disability Placard Active 0 .ROUTE .MEDSUPPLY March 16, 2023 1:00am Expires in 5 years Start: 03-16-2023 Disability [place] card Active 0 .ROUTE .MEDSUPPLY March 16, 2023 12:00am Expires in 5 years doxycycline monohydrate 100 mg oral capsule (14 sources) Tetracycline-class Drug Start: 06-05-2024 End: 06-10-2024 take 1 capsule by mouth twice daily Doxycycline Monohydrate 100 mg capsule Discontinued 100 mg PO TWICE A DAY 01 19June 05, 2024 1:00am June 09, 2024 1:00am June 10, 2024 1:12am Start: 12-25-2023 End: 05-16-2024 take 1 capsule by mouth twice daily Doxycycline Monohydrate 100 mg capsule Discontinued 100 mg PO TWICE A DAY December 25, 2023 12:00am May 16, 2024 2:55pm Start: 08-09-2022 End: 11-24-2022 take 1 capsule by mouth twice daily Doxycycline Hyclate 100 mg capsule Discontinued 100 mg PO TWICE A DAY August 09, 2022 12:00am November 24, 2022 12:28pm Start: 03-25-2019 End: 04-08-2019 take 1 tablet by mouth twice daily Doxycycline Hyclate 100 mg tablet Discontinued 100 mg PO TWICE A DAY March 25, 2019 1:00am April 08, 2019 3:38pm esomeprazole 40 mg delayed release oral capsule (8 sources) Proton Pump Inhibitor Start: 11-07-2019 End: 12-16-2019 take 1 capsule by mouth once daily Esomeprazole Magnesium 40 mg capsule,delayed release(DR/EC) Discontinued 40 mg PO DAILY November 07, 2019 12:00am December 16, 2019 1:13pm Fluad Quad 2011-9781(65yr up)(PF) 60 mcg (15 mcg x 4)/0.5mL IM syringe (flu vac (1 source) Start: 02-18-2021 End: 02-18-2021 Fluad Quad (65yr up)(PF) 60 mcg (15 mcg x 4)/0.5mL IM syringe (flu vac Discontinued 60 MCG IM ONCE 0.5 February 18, 2021 1:27pm February 18, 2021 2:29pm fluticasone propionate 0.05 mg/actuat metered dose nasal spray (16 sources) Corticosteroid Start: 04-08-2019 End: 12-16-2019 Fluticasone Propionate 50 mcg/actuation spray,suspension Discontinued 2 NMA INTRANASAL DAILY as needed for Congestion August 13, 2019 1:54pm December 16, 2019 1:14pm Start: 04-08-2019 End: 12-16-2019 Fluticasone Propionate Disco ntinued 2 SPRAY INTRANASAL DAILY August 13, 2019 12:54pm December 16, 2019 12:14pm Fluticasone Propion-Salmeterol (8 sources) Corticosteroid, beta2-Adrenergic Agonist Start: 02-26-2019 End: 04-08-2019 Fluticasone Propion-Salmeterol (Advair Diskus) 500-50 mcg/dose blister with device Discontinued 1 INH INHALATION TWICE A DAY 60 February 26, 2019 12:07pm April 08, 2019 3:49pm Start: 02-26-2019 End: 04-08-2019 Fluticasone Propion-Salmeter ol (Advair Diskus) 500-50 mcg/dose blister with device Discontinued 1 NMA INHALATION TWICE A DAY 60 February 26, 2019 1:00am April 08, 2019 3:49pm Start: 02-26-2019 End: 04-08-2019 Fluticasone Propion-Salmeter ol (Advair Diskus) 500-50 mcg/dose blister with device Discontinued 1 INH INHALATION TWICE A DAY 60 February 26, 2019 12:00am April 08, 2019 2:49pm Start: 02-26-2019 End: 04-08-2019 Fluticasone Propion-Salmeter ol (Advair Diskus) 500-50 mcg/dose blister with device Discontinued 1 INH INHALATION TWICE A DAY 60 February 26, 2019 1:00am April 08, 2019 3:49pm Oyrsvlnidrj-Sahbrshjk-Wnlbcv er (20 sources) Anticholinergic, Corticosteroid, beta2-Adrenergic Agonist Start: 04-07-2023 End: 04-12-2023 Eqqgzpvccis-Bzmvtrtwb-Oflnjc er 100-62.5-25 mcg blister with device Discontinued 1 NMA INHALATION DAILY 60 April 07, 2023 3:50pm April 12, 2023 3:09pm Start: 04-07-2023 End: 04-12-2023 Gxzcveousvu-Nvuycnxbw-Atnnnq er Discontinued 1 EACH INHALATION DAILY 60 April 07, 2023 2:50pm April 12, 2023 2:09pm Start: 09-14-2022 End: 04-07-2023 Vvfuwbjepzd-Rwzdhysas-Wmuauq er 100-62.5-25 mcg blister with device Discontinued 1 NMA INHALATION DAILY 60 September 14, 2022 1:06pm April 07, 2023 3:50pm Start: 09-14-2022 End: 04-07-2023 Raneztusuze-Knujewtjj-Kunywq er Discontinued 1 EACH INHALATION DAILY 60 September 14, 2022 12:06pm April 07, 2023 2:50pm Start: 09-14-2022 Fluticasone-Um eclidin-Vilanter Active 1 EACH INHALATION DAILY 60 September 14, 2022 1:06pm Start: 2022 End: 09-14-2022 Bfntgplekag-Ioewojmoo-Gudqbc er 100-62.5-25 mcg blister with device Discontinued 1 NMA INHALATION DAILY 60 2022 3:48pm September 14, 2022 1:07pm Start: 2022 End: 09-14-2022 Xbrtlaburnl-Coihdgkqf-Wddegj er Discontinued 1 EACH INHALATION DAILY 60 2022 2:48pm September 14, 2022 12:07pm Start: 2022 End: 09-14-2022 Pdpeqgdrvtg-Gsmglcwpx-Nxayqb er Discontinued 1 EACH INHALATION DAILY 60 2022 3:48pm September 14, 2022 1:07pm Start: 2022 Fluticasone-Um eclidin-Vilanter Active 1 EACH INHALATION DAILY 60 2022 2:48pm Start: 08-26-2021 End: 2022 Pvejhhagvxl-Hvadzhjbo-Cmgtdw er 100-62.5-25 mcg blister with device Discontinued 1 NMA INHALATION DAILY 60 August 26, 2021 9:32am 2022 3:48pm Start: 08-26-2021 End: 2022 Jhksusqauou-Epbwffjyd-Wymotf er Discontinued 1 EACH INHALATION DAILY 60 August 26, 2021 9:32am 2022 3:48pm Start: 08-26-2021 End: 2022 Nwokbxgchwa-Ccwrlqufr-Xszvct er Discontinued 1 EACH INHALATION DAILY 60 August 26, 2021 8:32am 2022 2:48pm Start: 08-26-2021 Fluticasone-Um eclidin-Vilanter Active 1 EACH INHALATION DAILY 60 August 26, 2021 9:32am Start: 02-18-2021 End: 08-26-2021 Vabcordnbjv-Qqswrwwnq-Bsuvia er 100-62.5-25 mcg blister with device Discontinued 1 NMA INHALATION DAILY 60 February 18, 2021 1:44pm August 26, 2021 9:32am Start: 02-18-2021 End: 08-26-2021 Jrtnkkmelwe-Swskqabun-Pnusmh er Discontinued 1 EACH INHALATION DAILY 60 February 18, 2021 12:44pm August 26, 2021 8:32am Start: 02-18-2021 End: 08-26-2021 Nauuwkffmnz-Ysdommtus-Pccigl er Discontinued 1 EACH INHALATION DAILY 60 February 18, 2021 1:44pm August 26, 2021 9:32am Start: 02-18-2021 Fluticasone-Um eclidin-Vilanter Active 1 EACH INHALATION DAILY 60 February 18, 2021 1:44pm Start: 08-24-2020 End: 02-18-2021 Sozggiingpc-Xwvelsiyv-Axsfnx er 100-62.5-25 mcg blister with device Discontinued 1 NMA INHALATION DAILY 60 August 24, 2020 12:22pm February 18, 2021 1:44pm Start: 08-24-2020 End: 02-18-2021 Pmfmzntazmh-Igdxcptcy-Buaxpx er Discontinued 1 EACH INHALATION DAILY 60 August 24, 2020 11:22am February 18, 2021 12:44pm Start: 08-24-2020 End: 02-18-2021 Srkpjebxrxw-Sitdkmfsj-Kodkfn er Discontinued 1 EACH INHALATION DAILY 60 August 24, 2020 12:22pm February 18, 2021 1:44pm Start: 08-22-2020 End: 08-24-2020 Vcekuxvyprr-Abxamtkja-Kyugwj er 100-62.5-25 mcg blister with device Discontinued 1 NMA INHALATION DAILY 60 August 22, 2020 11:14am August 24, 2020 12:22pm Start: 08-22-2020 End: 08-24-2020 Njljyvyqqzy-Mhxkneqrq-Yxtska er Discontinued 1 EACH INHALATION DAILY 60 August 22, 2020 10:14am August 24, 2020 11:22am Start: 08-22-2020 End: 08-24-2020 Ftjvujkytpc-Prginjmob-Ahsgep er Discontinued 1 EACH INHALATION DAILY 60 August 22, 2020 11:14am August 24, 2020 12:22pm Start: 02-03-2020 End: 08-22-2020 Skawfrxizil-Ndszpfipg-Dhuqbq er 100-62.5-25 mcg blister with device Discontinued 1 NMA INHALATION DAILY 60 February 03, 2020 2:32pm August 22, 2020 11:14am Start: 02-03-2020 End: 08-22-2020 Dhkcwfigzir-Wqbouogah-Zyqlsd er Discontinued 1 EACH INHALATION DAILY 60 February 03, 2020 1:32pm August 22, 2020 10:14am Start: 02-03-2020 End: 08-22-2020 Rrvpuhgejtx-Nfermlkdn-Owstwa er Discontinued 1 EACH INHALATION DAILY 60 February 03, 2020 2:32pm August 22, 2020 11:14am Start: 11-15-2019 End: 02-03-2020 Igepytbsdzx-Wcvzgqthy-Nqotqx er 100-62.5-25 mcg blister with device Discontinued 1 NMA INHALATION DAILY 60 November 15, 2019 10:47am February 03, 2020 2:33pm Start: 11-15-2019 End: 02-03-2020 Pfyouweqjjo-Zvsqlwhis-Ngifim er Discontinued 1 EACH INHALATION DAILY 60 November 15, 2019 9:47am February 03, 2020 1:33pm Start: 11-15-2019 End: 02-03-2020 Dogdqndaqmz-Pqyueueko-Ekzhcw er Discontinued 1 EACH INHALATION DAILY 60 November 15, 2019 10:47am February 03, 2020 2:33pm Start: 09-02-2019 End: 11-15-2019 Rnxaixpkdmn-Ynaethoua-Omcoov er Discontinued 1 PUFF IH 1500 September 02, 2019 10:43am November 15, 2019 10:48am Start: 09-02-2019 End: 11-15-2019 Bofglszakxc-Lqxjihwsz-Yvvimc er 1 EACH blister with device Discontinued 1 NMA IH 1500 September 02, 2019 12:00am November 15, 2019 10:48am Start: 09-02-2019 End: 11-15-2019 Epbhoylpoti-Sfxcyvaui-Sctsgw er Discontinued 1 PUFF IH 1500 September 01, 2019 11:00pm November 15, 2019 9:48am Start: 09-02-2019 End: 11-15-2019 Roqmarzjdhh-Mggoisebt-Ovnmug er Discontinued 1 PUFF IH 1500 September 02, 2019 12:00am November 15, 2019 10:48am Start: 04-08-2019 End: 07-09-2019 Jkqpttrdilc-Zclltuhyo-Ulqffx er (Trelegy Ellipta) 100-62.5-25 mcg blister with device Discontinued 1 INH INHALATION daily 60 April 08, 2019 3:49pm July 09, 2019 1:28pm administer at approximately the same time(s) each day Start: 04-08-2019 End: 07-09-2019 Bgqcthzrkuv-Fmhjrhxnp-Ecudgj er (Trelegy Ellipta) 100-62.5-25 mcg blister with device Discontinued 1 NMA INHALATION daily 60 April 08, 2019 1:00am July 09, 2019 1:28pm administer at approximately the same time(s) each day Start: 04-08-2019 End: 07-09-2019 Lxbpixwamie-Cgqpwnoap-Fhxktb er (Trelegy Ellipta) 100-62.5-25 mcg blister with device Discontinued 1 INH INHALATION daily 60 April 08, 2019 12:00am July 09, 2019 12:28pm administer at approximately the same time(s) each day Start: 04-08-2019 End: 07-09-2019 Tjmzdjzofwa-Jzuhjrjjt-Fsarah er (Trelegy Ellipta) 100-62.5-25 mcg blister with device Discontinued 1 INH INHALATION daily 60 April 08, 2019 1:00am July 09, 2019 1:28pm administer at approximately the same time(s) each day Start: 02-01-2019 take 1 puff(s) by inhalation once daily as needed TRELEGY ELLIPTA 100-62.5-25 mcg dsdv Inh liliya 1 Puff as instructed once daily as needed. 1 Each 5 02/01/2019 Active Start: 08-07-2018 End: 02-26-2019 Crjotfpmdcu-Shhrgjdqe-Qychlp er (Trelegy Ellipta) 100-62.5-25 mcg blister with device Discontinued 1 INH INHALATION DAILY August 07, 2018 2:53pm February 26, 2019 12:07pm Start: 08-07-2018 End: 02-26-2019 Caamamaqtgu-Uzjbeunhj-Ofbzgz er (Trelegy Ellipta) 100-62.5-25 mcg blister with device Discontinued 1 NMA INHALATION DAILY August 07, 2018 12:00am February 26, 2019 12:07pm Start: 08-07-2018 End: 02-26-2019 Vcgyfckfbfx-Pvaftbvfe-Jzzjil er (Trelegy Ellipta) 100-62.5-25 mcg blister with device Discontinued 1 INH INHALATION DAILY August 06, 2018 11:00pm February 26, 2019 11:07am Start: 08-07-2018 End: 02-26-2019 Twtxslvgwio-Wwpkeirmv-Ewazuc er (Trelegy Ellipta) 100-62.5-25 mcg blister with device Discontinued 1 INH INHALATION DAILY August 07, 2018 12:00am February 26, 2019 12:07pm Start: 06-30-2018 End: 08-07-2018 Gtxblbqixih-Nasnbrctn-Exsgvl er Discontinued 1 EACH IH DAILY June 30, 2018 1:51pm August 07, 2018 3:09pm Start: 06-30-2018 End: 08-07-2018 take 1 dose by inhalation once daily Uneyjnwnzwg-Ytqkiuxjs-Awfyvtsq 1 EACH blister with device Discontinued 1 NMA IH DAILY June 30, 2018 12:00am August 07, 2018 3:09pm Start: 06-30-2018 End: 08-07-2018 Yblzoklavof-Daphbkflh-Pswyui er Discontinued 1 EACH IH DAILY June 29, 2018 11:00pm August 07, 2018 2:09pm Start: 06-30-2018 End: 08-07-2018 Wwmmqtuqqlo-Ypvtjddar-Mpfghu er Discontinued 1 EACH IH DAILY June 30, 2018 12:00am August 07, 2018 3:09pm Comment on above: Inhale 1 Puff as ins tructed once daily as needed. furosemide 40 mg oral tablet (20 sources) Loop Diuretic Start: 1 End: 3 take 1 tablet by mouth once daily Furosemide 40 mg tablet Discontinued 40 mg PO DAILY April 04, 2023 2:56pm April 04, 2023 2:56pm 12 hr guaiFENesin 1200 mg extended release oral tablet (17 sources) Start: 3 End: 5 take 1 tablet by mouth every twelve hours Guaifenesin 1,200 mg tablet extended release 12hr Discontinued 1200 mg PO Q12H December 07, 2022 12:00am May 16, 2024 2:55pm Start: 03-31-2021 End: 05-16-2024 take 1 tablet by mouth every four hours as needed for cough Guaifenesin 400 mg tablet Discontinued 400 mg PO Q4H as needed for cough, congestion 60 March 01, 2022 2:57pm May 16, 2024 2:51pm levoFLOXacin 750 mg oral tablet (10 sources) Quinolone Antimicrobial Start: 12-20-2022 End: 12-27-2022 take 1 tablet by mouth every twenty-four hours Levofloxacin 750 mg tablet Discontinued 750 mg PO Q24H 7 December 20, 2022 12:00am December 26, 2022 12:00am December 27, 2022 12:03am Start: 03-31-2021 End: 06-23-2021 take 1 tablet by mouth once daily Levofloxacin 500 mg tablet Discontinued 500 mg PO DAILY March 31, 2021 1:00am June 23, 2021 2:09pm methylPREDNISolone 4 mg oral tablet (7 sources) Corticosteroid Start: 12-25-2023 End: 05-16-2024 take 1 tablet by mouth once Methylprednisolone (Medrol ([place])) 4 mg tablets,dose pack Discontinued 0 PO per package directions December 25, 2023 12:00am May 16, 2024 2:51pm PO PER PKG DIR Start: 12-20-2021 End: 12-26-2021 take 1 tablet by mouth once Methylprednisolone (Medrol ([place])) 4 mg tablets,dose pack Discontinued 4 mg PO per package directions 05 10December 20, 2021 12:00am December 25, 2021 12:00am December 26, 2021 12:03am prasugrel 10 mg oral tablet (20 sources) P2Y12 Platelet Inhibitor Start: 09-03-2018 End: 09-12-2018 take 1 tablet by mouth once daily Prasugrel Hcl (Effient) 10 mg tablet Discontinued 10 mg PO DAILY September 03, 2018 3:56pm September 12, 2018 2:19pm pravastatin sodium 40 mg oral tablet (8 sources) HMG-CoA Reductase Inhibitor Start: 12-31-2014 End: 08-07-2018 take 1 tablet by mouth at bedtime Pravastatin 40 MG tablet Discontinued 40 mg PO AT BEDTIME December 31, 2014 12:00am August 07, 2018 3:25pm predniSONE 10 mg oral tablet (20 sources) Start: 06-12-2024 End: 06-24-2024 Prednisone 10 mg tablet Discontinued 10 mg PO daily 30 June 12, 2024 1:00am June 23, 2024 1:00am June 24, 2024 12:12am take 4 tabs for three days, then 3 tabs for three days, then 2 tabs for three days, then 1 tab for 3 days Start: 06-05-2024 End: 06-12-2024 take 1 tablet by mouth once daily Prednisone 50 mg tablet Discontinued 50 mg PO daily June 05, 2024 1:00am June 12, 2024 12:09pm Start: 09-25-2023 End: 11-05-2023 Prednisone 10 mg tablet Disc ontinued 10 mg PO daily September 25, 2023 12:00am November 05, 2023 9:33am take 4 tabs for three days, then 3 tabs for three days, then 2 tabs for three days, then 1 tab for 3 days Start: 11-14-2022 End: 12-07-2022 Prednisone 10 mg tablet Disc ontinued 10 mg PO daily November 24, 2022 12:29pm December 07, 2022 2:18pm take 4 tabs for three days, then 3 tabs for three days, then 2 tabs for three days, then 1 tab for 3 days Start: 03-31-2021 End: 06-23-2021 take 2 tablets by mouth once daily Prednisone 20 mg tablet Discontinued 40 mg PO DAILY March 31, 2021 1:00am June 23, 2021 2:10pm Start: 03-31-2021 End: 06-23-2021 take 40 mg by mouth once daily Prednisone Discontinued 40 MG PO DAILY March 31, 2021 12:00am June 23, 2021 1:10pm Start: 03-25-2019 End: 04-08-2019 Prednisone 10 mg tablet Disc ontinued 10 mg PO daily March 25, 2019 1:00am April 08, 2019 3:38pm take 4 tabs for three days, then 3 tabs for three days, then 2 tabs for three days, then 1 tab for 3 days tadalafil 5 mg oral tablet (9 sources) Phosphodiesterase 5 Inhibitor Start: 08-06-2018 End: 08-07-2018 take 1 tablet by mouth once daily Tadalafil 5 mg tablet Discontinued 5 mg PO DAILY August 06, 2018 12:00am August 07, 2018 3:10pm Start: 06-26-2018 Tadalafil (MEGAN LIS) 10 mg tablet Indications: Erectile dysfunction Take 1 tablet by mouth as needed (30 minutes prior intercourse.). 30 tablet 3 06/26/2018 Active Comment on above: Take 1 tablet by [facility] as needed (30 minutes prior intercourse.). ticagrelor 90 mg oral tablet (9 sources) Start: 08-02-19 End: 04-24-20 19 take 1 tablet by mouth twice daily Ticagrelor 90 mg tablet Discontinued 90 mg PO TWICE A DAY August 06, 2018 12:00am August 08, 2018 10:42am Comment on above: Take 1 tablet by christa th twice daily. Tiotropium [place] (8 sources) Anticholinergic Start: 02-27-20 End: 04-08-20 take 1 puff(s) by inhalation once daily Tiotropium [place] (Spiriva Respimat) 2.5 mcg/actuation mist Discontinued 2 PUFF INHALATION DAILY February 26, 2019 12:08pm April 08, 2019 3:49pm Start: 02-26-2019 End: 04-08-2019 take 2.5 ug by inhalation once daily Tiotropium [place] (Spiriva Respimat) 2.5 mcg/actuation mist Discontinued 2 NMA INHALATION DAILY February 26, 2019 1:00am April 08, 2019 3:49pm Start: 02-26-2019 End: 04-08-2019 take 1 puff(s) by inhalation once daily Tiotropium [place] (Spiriva Respimat) 2.5 mcg/actuation mist Discontinued 2 PUFF INHALATION DAILY February 26, 2019 12:00am April 08, 2019 2:49pm Start: 02-26-2019 End: 04-08-2019 take 1 puff(s) by inhalation once daily Tiotropium [place] (Spiriva Respimat) 2.5 mcg/actuation mist Discontinued 2 PUFF INHALATION DAILY February 26, 2019 1:00am April 08, 2019 3:49pm tiZANidine 4 mg oral tablet (17 sources) Central alpha-2 Adrenergic Agonist Start: 11-13-2018 take 1 tablet by mouth every six hours as needed tiZANidine (ZANAFLEX) 4 mg tablet Take 1 tablet by mouth every 6 hours as needed. 30 tablet 5 11/13/2018 Active Start: 10-10-2018 End: 02-06-2019 take 1 capsule by mouth at bedtime Tizanidine 4 mg capsule Discontinued 4 mg PO AT BEDTIME October 10, 2018 12:00am February 06, 2019 2:38pm Start: 08-06-2018 End: 09-17-2018 take 1 tablet by mouth once daily Tizanidine 4 mg tablet Discontinued 4 mg PO DAILY August 06, 2018 12:00am September 17, 2018 2:48pm Comment on above: Take 1 tablet by christa th every 6 hours as needed. traMADol hydrochloride 50 mg oral tablet (8 sources) Opioid Agonist Start: 9 End: 9 take 1 tablet by mouth every twelve hours as needed for pain Tramadol 50 mg tablet Discontinued 50 mg PO Q12H as needed for pain September 11, 2018 12:00am October 10, 2018 2:28pm valACYclovir 1000 mg oral tablet (8 sources) Herpesvirus Nucleoside Analog DNA Polymerase Inhibitor, Herpes Simplex Virus Nucleoside Analog DNA Polymerase Inhibitor, Herpes Zoster Virus Nucleoside Analog DNA Polymerase Inhibitor Start: 9 End: 9 Valacyclovir 1 gram tablet Discontinued 1000 mg PO THREE TIMES A DAY 04 11September 17, 2018 12:00am September 23, 2018 12:00am September 24, 2018 12:08am Start: 09-17-2018 End: 09-24-2018 take 1000 mg by mouth three times daily Valacyclovir Discontinued 1000 MG PO THREE TIMES A DAY 04 11September 16, 2018 11:00pm September 23, 2018 11:08pm Problems Active Problems Problem Classification Problem Date Documented Da te Episodic/Chronic Abdominal pain (16 sources) Abdominal pain; Translations: [Unspecified abdominal pain] 03-04-2021 Episodic Acute bronchitis (1 source) Acute bronchitis; Translations: [Acute bronchitis, unspecified] 09-19-2023 Episodic Anxiety disorders (10 sources) Mixed anxiety and depressive disorder; Translations: [Other specified anxiety disorders] Onset: 9 03-09-2009 Chronic Asthma (2 sources) Allergic asthma; Translations: [Unspecified asthma, uncomplicated] Onset: 6 07-09-2009 Chronic Chronic obstructive pulmonary disease and bronchiectasis (20 sources) Pulmonary emphysema; Translations: [Emphysema, unspecified] Onset: Chronic Conditions associated with dizziness or vertigo (5 sources) Benign paroxysmal positional vertigo; Translations: [Benign paroxysmal vertigo, unspecified ear] 03-20-2022 Episodic Coronary atherosclerosis and other heart disease (19 sources) Coronary arteriosclerosis; Translations: [Atherosclerotic heart disease of [place] coronary artery without angina pectoris] Chronic Diabetes mellitus without complication (1 source) Hyperglycemia; Translations: [Hyperglycemia, unspecified] 11-13-2023 Episodic Disorders of lipid metabolism (12 sources) Hyperlipidemia; Translations: [Hyperlipidemia, unspecified] Onset: 5 Chronic Esophageal disorders (8 sources) Gastroesophageal reflux disease; Translations: [Gastro-esophageal reflux disease without esophagitis] 11-19-2020 Chronic Essential hypertension (15 sources) Essential hypertension; Translations: [Essential (primary) hypertension] Onset: 9 Chronic Hemorrhoids (1 source) Internal hemorrhoids; Translations: [Other hemorrhoids] 07-09-2009 Episodic Hyperplasia of prostate (10 sources) Benign prostatic hyperplasia; Translations: [Benign prostatic hyperplasia without lower urinary tract symptoms] Onset: 5 10-10-2018 Chronic Immunizations and screening for infectious disease (17 sources) Needs influenza immunization; Translations: [Encounter for immunization] Episodic Inflammatory conditions of male genital organs (8 sources) Epididymitis; Translations: [Epididymitis] 09-06-2018 Episodic Mood disorders (1 source) Depressive disorder; Translations: [Depression] Onset: 9 03-09-2009 Chronic Nonspecific chest pain (16 sources) Musculoskeletal chest pain; Translations: [Other chest pain] 09-06-2018 Episodic Osteoarthritis (17 sources) Arthritis; Translations: [Unspecified osteoarthritis, unspecified site] Onset: 6 02-23-2016 Chronic Other gastrointestinal disorders (8 sources) Dilatation of intestine; Translations: [Dilation of intestine] 09-05-2018 Episodic Other gastrointestinal disorders (1 source) Dysphagia; Translations: [Dysphagia, unspecified] 11-13-2023 Episodic Other hereditary and degenerative nervous system conditions (7 sources) Restless legs; Translations: [Restless legs syndrome] Onset: 5 06-25-2014 Chronic Other hereditary and degenerative nervous system conditions (4 sources) Restless legs syndrome; Translations: [Restless legs syndrome (RLS)] Chronic Other lower respiratory disease (9 sources) Dyspnea; Translations: [Shortness of breath] 11-18-2019 Episodic Other male genital disorders (1 source) Male erectile dysfunction, unspecified; Translations: [Impotence of organic origin] Onset: 5 06-25-2014 Chronic Other male genital disorders (8 sources) History of male erectile disorder; Translations: [Personal history of other diseases of male genital organs] 07-09-2019 Episodic Other male genital disorders (8 sources) Adult hydrocele; Translations: [Hydrocele, unspecified] 09-06-2018 Episodic Other non-traumatic joint disorders (8 sources) Shoulder pain; Translations: [Pain in unspecified shoulder] 11-18-2019 Episodic Other screening for suspected conditions (not mental disorders or infectious disease) (2 sources) Patient encounter status; Translations: [Encounter for screening for malignant neoplasm of colon] Onset: 9 07-09-2009 Episodic Residual codes; unclassified (8 sources) History of vaccination; Translations: [Personal history of other drug therapy] 11-19-2020 Episodic Residual codes; unclassified (8 sources) Insomnia; Translations: [Insomnia, unspecified] 02-18-2021 Episodic Substance-related disorders (12 sources) Cigarette smoker ; Translations: [Nicotine dependence, cigarettes, uncomplicated] Onset: 5 Chronic Unclassified (8 sources) neck and back pain 11-18-2019 Unclassified (1 source) Cough, unspecified; Translations: [Cough, unspecified] Onset: 5 Viral infection (16 sources) 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; 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] Episodic Past or Other Problems Problem Classification Problem Date Documented Da te Episodic/Chronic Coronary atherosclerosis and other heart disease (9 sources) Stented coronary artery; Translations: [Presence of coronary angioplasty implant and graft] Onset: 08-01-2018 Episodic Comment on above: 5.0 mm X 32 mm Evero limus-eluding [place] chromium stent to mid RCA, and 4.0 mm X 19 mm polytetrafluoroethylene-covered stent (to seal coronary artery perforation site) Other gastrointestinal disorders (1 source) Dysphagia, unspecified; Translations: [Dysphagia, unspecified] Onset: 01-15-2024 Episodic Other upper respiratory infections (2 sources) Upper respiratory infection; Translations: [Acute upper respiratory infection, unspecified] Onset: 01-07-2024 11-05-2023 Episodic Char-; endo-; and myocarditis; cardiomyopathy (except that caused by tuberculosis or sexually transmitted disease) (9 sources) Pericardial effusion; Translations: [Cardiac tamponade] Onset: 07-29-2018 07-09-2019 Episodic Residual codes; unclassified (8 sources) History of cardiovascular surgery; Translations: [Other specified postprocedural states] Onset: 08-01-2018 10-10-2018 Episodic Residual codes; unclassified (1 source) Pain, unspecified; Translations: [Pain, unspecified] Onset: 01-07-2024 Episodic Results Test Name Value Interpretation Reference Range Facility Pulmonary Visit Reporton Pulmonary Visit Report [facility] [address] [place] [address] OFFICE VISIT Date of Service: 10/02/24 MR#: [id number] Acct: [id number] Name: ANITA GUZMAN Rep #: [id number] : 1950 Provider: LEONIDAS Hester Age/Sex: 74/M [place] [facility] Status: Signed Assessment and Plan Assessment and Plan (1) Shortness of breath: Status: Chronic Plan: Of unclear etiology. The patient could be experiencing shortness of breath due to hypoxia on exertion. Sending him for 6-minute walk test to evaluate. If he qualifies, the patient is requesting a Inogen. Follow-up in the office once test results are available for review. If the patient does qualify for supplemental oxygen during his walk test, supplemental oxygen will be ordered right away. (2) Stage 3 severe COPD by GOLD classification: Status: Chronic Plan: The patient is more symptomatic despite being compliant with triple therapy on [facility]. He is no longer smoking cigarettes but is smoking marijuana a couple times daily. It is unclear to me if the patient's COPD has progressed. He is agreeable to repeating a pulmonary function test for clarification quantification. Not treating him with antibiotics or steroids today, as I did not hear wheezing on exam. Return to the office once PFT is available for review. (3) Smoking greater than 40 pack years: Status: Chronic Plan: He remains appropriate for repeat LDCT which is due in December, ordered accordingly. Orders: Orders PFT Complete - DLCO, Spirometry b/a bronchodilators, lung volumes 10/10/24 J44.9 - Chronic obstructive pulmonary disease, unspecified Simple Pulmonary Exercise Test 10/08/24 J44.9 - Chronic obstructive pulmonary disease, unspecified Low Dose CT Lung Screening 12/16/24 F17.200 - Nicotine dependence, unspecified, uncomplicated, F17.210 - Nicotine dependence, cigarettes, uncomplicated Plan Details Additional Comments: This note was generated with [employer] dictation software. It may contain incorrect words, spelling, and punctuation that were not noted in checking the note before signing. 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 He was last seen here in the office in March of 2023, he missed an appointment for 2023 and did not reschedule. He is ambulatory and currently on room air. He has not recently been seen in the ED or urgent care for any respiratory illness. He has not required any antibiotics or prednisone for any breathing problems. He continues to smoke marijuana a couple times a day. He is no longer smoking cigarettes. He is compliant with use of Trelegy 1 puff daily. He does report rinsing his mouth out after each use. He denies any medication side effects such as sore throat or thrush. He is currently using his albuterol rescue inhaler several times daily. He is compliant with Singulair daily. He is using Mucinex twice daily. He does have shortness of breath that is worse with exertion. He believes that it is progressing. He has a cough that is productive of thick yellow-colored sputum. He has wheezing and chest tightness but denies any chest pain or palpitations. He has not had any fever, chills or body aches. Intake Vital Signs 06/05/24 14:28 10/02/24 08:35 Height 5 ft 8 in 5 ft 8 in Weight: 164 lb BMI 24.9 BP 111/63 Blood Pressure Location Lt brachial Position Sitting Respiration 18 Pulse 84 Pulse Source Monitor Temp 97.5 F L Temperature Source Temporal Artery Pulse Oximetry (%) 93 Oxygen Delivery Method room air Comment SPO2 89% on arrival to exam room Intake Visit Reasons: Shortness of breath Chief Complaint: congest, DALY, cough Hazardous Material Specialist Required: No Accompanied by: Self Allergies No Known Allergies Allergy (Verified 10/02/24 11:07) Medications ???Medication ???Instructions ???Recorded ???Confirmed ???Type aspirin 81 mg tablet,delayed 81 mg PO DAILY 08/06/18 10/02/24 H istory release (Adult Aspirin Regimen) acetaminophen 500 mg capsule 500 mg PO Q6H PRN pain #30 caps 10/02/24 Rx albuterol sulfate 2.5 mg/3 mL 2.5 mg (3 mL) inhalation Q4H PRN 0 06/15/20 10/02/24 Rx (0.083 %) solution for nebulization Sob /Or Wheezing #180 mL multivitamin (One Daily 1 tab PO DAILY 06/23/21 10/02/24 H istory Multivitamin tablet) diazepam 2 mg tablet 2 mg PO TID PRN PRN Vertigo #10 10/02/24 Rx TABLETS Disability Placard #1 ea 03/16/23 10/02/24 Rx furosemide 40 mg tablet 40 mg PO DAILY #90 tabs 04/04/23 0 05/16/24 Rx Held on 08/22/23. Instructions: blurred vision trazodone 50 mg tablet See Rx Instructions .Route 4 10/02/24 Rx .COMPLEX #90 tabs isosorbide (more content not included)... [facility] Chest PA and Lateralon 06-05 Chest PA and Lateral [facility] [address] [place] [id number] Chest PA and Lateral MR#: [id number] Acct: [id number] Name: ANITA GUZMAN Rep #: [id number] : 1950 M 74 From: Earl borrego MD PCP: Dr. Sharon Osorio MD Status: DEP AMB Study: Chest PA and Lateral Date of Exam: 06/05/24 Exam# [id number] Ordering Dr: Sergio Ramirez [employer]LECTION OPERATOR-C PROCEDURE: CHEST PA AND LATERAL REASON FOR EXAM: Chest pain. TECHNIQUE: PA and lateral views were obtained. COMPARISON: Comparison is made with prior chest radiograph dated March 12, 2022. FINDINGS: Hyperinflation. COPD. Persistent increased markings at the lung bases suggestive of basilar scarring worse on the left side. Can not rule out focal superimposed infiltrate in the posterior medial segment of the left lower lobe. The heart size is normal. Prominence of the central pulmonary arteries. RAD/Chest PA and Lateral IMPRESSION: Hyperinflation and COPD with bibasilar scarring worse at the left lung base. Questionable focal superimposed infiltrate in the posterior medial segment of the left lung base. Reading Location: [id number] CC: LEONIDAS Ramirez; Dr. Sharon Osorio MD Candy Attendant: Signed [facility] No Panel InformationOrdered By: Sergio Ramirez on 06-05-2024 Influenza Types A,B Rapid (Clinic) [facility] POC SARS CoV-2 Antigen [facility] Visit Reporton 0 06-05-2024 Urgent Care Visit [facility] [address] [place] [address] OFFICE VISIT Date of Service: 06/05/24 MR#: [id number] Acct: [id number] Name: ANITA GUZMAN Rep #: [id number] : 1950 Provider: LEONIDAS Ramirez Age/Sex: 74/M Location: [email or web address] Status: Signed Intake Vital Signs 05/16/24 14:25 06/05/24 08:14 Height 5 ft 8 in Weight: 174 lb BMI 26.4 BP 128/64 H 150/80 H Blood Pressure Location Lt brachial Lt brachial Position Sitting Sitting Respiration 18 20 H Pulse 90 94 Pulse Source Monitor NIBP Temp 97.6 F L 97.7 F L Temp Source Temporal Oral Pulse Oximetry (%) 95 88 Oxygen Delivery Method room air room air Intake Visit Reasons: CONGESTION/DALY Chief Complaint: congest, DALY, cough Hazardous Material Specialist Required: No Is patient in pain?: No Allergies No Known Allergies Allergy (Verified 06/05/24 08:15) Have you fallen in the past year?: No Nurse's Note: cough, congest, DALY, fatigue x 1 week worsening. hx COPD, nebs at home with minimal relief, denies O2 use. current SpO2 88% on room air, pt with very tight sounding cough. [facility] Medical History (Updated 06/05/24 @ 08:23 by LEONIDAS Wheeler) COPD exacerbation Health care maintenance Asthmatic bronchitis with exacerbation Blood glucose elevated Swallowing disorder Acute bronchitis, unspecified Emphysema with both acute and chronic bronchitis Restless leg syndrome Encounter for preventative adult health care examination Abdominal pain Flu vaccine need Insomnia COVID-19 vaccine series completed GERD (gastroesophageal reflux disease) Abdominal pain Stage 3 severe COPD by GOLD classification Shingles (herpes zoster) polyneuropathy neck and back pain Asthma Shoulder pain Shortness of breath Arthritis Depression with anxiety Benign prostatic hyperplasia Coronary artery disease Colon enlargement Atherosclerosis of coronary artery of [place] heart without angina pectoris Essential hypertension Cardiac tamponade (07/29/18) Abnormal stress test ( 06/30/18) Hyperlipidemia History of depression History of anxiety History of restless legs syndrome Emphysema of lung History of erectile dysfunction Surgical History History of open reduction and internal fixation (ORIF) procedure S/P pericardiocentesis (08/01/18) Presence of stent in coronary artery (08/01/18) History of ankle surgery ( 2008) History of colonoscopy Family History Mother Cancer leukemia Father Heart disease Myocardial infarction Sister COPD (chronic obstructive pulmonary disease) Brother COPD (chronic obstructive pulmonary disease) Cancer liver Social History Smoking Status: Former smoker quit date: 05/18/01 Tobacco: How many years used: 40 alcohol intake: former details: 2000 substance use type: former substance user Date of last use: marijuana currently, other drugs quit in 2008, marijuana, crack/cocaine, hallucinogens and club/ug designer drugs caffeine: Yes Type: coffee Number of servings: 2 what type of physical activity do you participate in: none HPI HPI Chief Complaint: congest, DALY, cough Details: ANITA GUZMAN, is a 74 M who presents to the office today for HPI: For the last week patient complains of cough, headache, and congestion. He does have a history of COPD and has been using his home nebulizer with mild relief. He does not normally check his oxygen level at home but notes it is typically around 92% when it is checked. He notes some left-sided chest tightness but states it is not his heart it is his lung. Denies any recent fevers. ROS: As noted in HPI Physical Exam: VITALS: Reviewed. GEN: Healthy appearing, well-developed, NAD. PSYCH: AOx3. Normal memory, mood, and affect. HEENT -Eyes: -No discharge or redness; -Ears: -Mouth and throat: Moist mucous membranes. NECK: CV: Regular rate and rhythm LUNGS: Diminished lung sounds throughout with normal lung sounds. Moderate work of breathing noted. SKIN: Warm, well perfused. No skin rashes or abnormal lesions noted. MSK: Normal gait. NEURO: Ambulating with no limitations. Normal muscle strength and tone. No focal deficits. Results POC SARS AG POC SARS AG Negative Last Edit by Debi Jha on 06/05/24 08:22 POC FLU A B Office Flu A B Negative FLU A B Last Edit by Debi Jha on 06/05/24 08:29 Coding Level of Care Code Off vis,est,level 4 Diagnoses COPD exacerbation J44.1 Assessment and Plan Assessment and Plan (1) COPD exacerbation: Status: Chronic Plan: On initial evaluation patient's pulse ox was 88% and he did appear to have (more content not included)... [facility] CBC W/Diff, Automatedon 04-19 0-2024 Absolute Lymph 1.22 X10 3/uL Normal 0.83-4.51 [facility] Comment on above: Performed By: #### L 100.0100, L500.4100, L501.9910, L500.4050 #### [facility] [address] [place], [address] Absolute Neut 7.3 X10 3/uL Normal 2.0-7.7 [facility] Comment on above: Performed By: #### L 100.0100, L500.4100, L501.9910, L500.4050 #### [facility] [address] [place], [address] Basophils/100 WBC (Bld) 0.6 % Normal 0-1 [facility] Comment on above: Performed By: #### L 100.0100, L500.4100, L501.9910, L500.4050 #### [facility] [address] [place], [address] Eosinophils/100 WBC (Bld) 2.1 % Normal 0-5 [facility] Comment on above: Performed By: #### L 100.0100, L500.4100, L501.9910, L500.4050 #### [facility] [address] [place], [address] Erythrocyte distribution width (RBC) [Ratio] 13.0 % Normal 11.6-14.6 [facility] Comment on above: Performed By: #### L 100.0100, L500.4100, L501.9910, L500.4050 #### [facility] [address] [place], [address] Hematocrit (Bld) [Volume fraction] 45.7 % Normal 40-54 [facility] Comment on above: Performed By: #### L 100.0100, L500.4100, L501.9910, L500.4050 #### [facility] [address] [place], [address] Hemoglobin (Bld) [Mass/Vol] 15.4 g/dL Normal 13.0-16.5 [facility] Comment on above: Performed By: #### L 100.0100, L500.4100, L501.9910, L500.4050 #### [facility] [address] [place], [address] IG% 0.700 Normal 0.0-0.9 [facility] Comment on above: Result Comment: IG% - Immature Granulocytes (promyelocytes, myelocytes and metamyelocytes) > 1% indicates that a LEFT SHIFT is Present. Performed By: #### L 100.0100, L500.4100, L501.9910, L500.4050 #### [facility] [address] [place], [address] Lymphocytes/100 WBC (Bld) 12.6 % Low 19-41 [facility] Comment on above: Performed By: #### L 100.0100, L500.4100, L501.9910, L500.4050 #### [facility] [address] [place], [address] MCH (RBC) [Entitic mass] 29.4 pg Normal 27.0-32.0 [facility] Comment on above: Performed By: #### L 100.0100, L500.4100, L501.9910, L500.4050 #### [facility] [address] [place], [address] MCHC (RBC) [Mass/Vol] 33.7 g/dL Normal 32-36 [facility] Comment on above: Performed By: #### L 100.0100, L500.4100, L501.9910, L500.4050 #### [facility] [address] [place], [address] MCV (RBC) [Entitic vol] 87.2 fL Normal 80-94 [facility] Comment on above: Performed By: #### L 100.0100, L500.4100, L501.9910, L500.4050 #### [facility] [address] [place], [address] Monocytes/100 WBC (Bld) 9.5 % Normal 0-10 [facility] Comment on above: Performed By: #### L 100.0100, L500.4100, L501.9910, L500.4050 #### [facility] [address] [place], [address] Neutrophils/100 WBC (Bld) 74.5 % High 47-70 [facility] Comment on above: Performed By: #### L 100.0100, L500.4100, L501.9910, L500.4050 #### [facility] [address] [place], [address] Nucleated RBC (Bld) [#/Vol] 0 10*3/uL Normal 0-5 [facility] Comment on above: Performed By: #### L 100.0100, L500.4100, L501.9910, L500.4050 #### [facility] [address] [place], [address] Platelet mean volume (Bld) [Entitic vol] 10.6 fL Normal 6.2-12.0 [facility] Comment on above: Performed By: #### L 100.0100, L500.4100, L501.9910, L500.4050 #### [facility] [address] [place], [address] Platelets (Bld) [#/Vol] 258 10*3/uL Normal 150-450 [facility] Comment on above: Performed By: #### L 100.0100, L500.4100, L501.9910, L500.4050 #### [facility] [address] [place], [address] RBC (Bld) [#/Vol] 5.24 10*6/uL Normal 4.6-6.2 [facility] Comment on above: Performed By: #### L 100.0100, L500.4100, L501.9910, L500.4050 #### [facility] [address] [place], [address] RDW SD 41.6 fl Normal 35.1-43.9 [facility] Comment on above: Performed By: #### L 100.0100, L500.4100, L501.9910, L500.4050 #### [facility] [address] [place], [address] WBC (Bld) [#/Vol] 9.7 10*3/uL Normal 4.4-11.0 [facility] Comment on above: Performed By: #### L 100.0100, L500.4100, L501.9910, L500.4050 #### [facility] [address] [place], [address] Comprehensive Metabolic Prof ilon 05-16-2024 Albumin [Mass/Vol] 4.0 g/dL Normal 3.2-5.0 [facility] Comment on above: Performed By: #### L 100.0100, L500.4100, L501.9910, L500.4050 #### [facility] [address] [place], [address] Albumin/Globulin [Mass ratio] 1.1 {ratio} Normal 0.9-2.4 [facility] Comment on above: Performed By: #### L 100.0100, L500.4100, L501.9910, L500.4050 #### [facility] [address] [place], [address] ALK P 72 U/L Normal 45-117 [facility] Comment on above: Performed By: #### L 100.0100, L500.4100, L501.9910, L500.4050 #### [facility] [address] [place], [address] ALT [Catalytic activity/Vol] 39 U/L Normal 16-61 [facility] Comment on above: Performed By: #### L 100.0100, L500.4100, L501.9910, L500.4050 #### [facility] [address] [place], [address] AST [Catalytic activity/Vol] 30 U/L Normal 15-37 [facility] Comment on above: Performed By: #### L 100.0100, L500.4100, L501.9910, L500.4050 #### [facility] [address] [place], [address] Bilirubin [Mass/Vol] 0.80 mg/dL Normal 0.20-1.00 [facility] Comment on above: Result Comment: For patients on eltrombopag therapy, use of Dimension [place] TBIL is not recommended. Performed By: #### L 100.0100, L500.4100, L501.9910, L500.4050 #### [facility] [address] [place], [address] BUN/CRE 11.2 RATIO Normal 10-20 [facility] Comment on above: Performed By: #### L 100.0100, L500.4100, L501.9910, L500.4050 #### [facility] [address] [place], [address] CA,Total 9.4 mg/dL Normal 8.5-10.1 [facility] Comment on above: Performed By: #### L 100.0100, L500.4100, L501.9910, L500.4050 #### [facility] [address] [place], [address] Chloride [Moles/Vol] 108 mmol/L High 98-107 [facility] Comment on above: Performed By: #### L 100.0100, L500.4100, L501.9910, L500.4050 #### [facility] [address] [place], [address] CO2 [Moles/Vol] 25.0 mmol/L Normal 21.0-32.0 [facility] Comment on above: Performed By: #### L 100.0100, L500.4100, L501.9910, L500.4050 #### [facility] [address] [place], [address] Creatinine [Mass/Vol] 1.07 mg/dL Normal 0.70-1.30 [facility] Comment on above: Result Comment: The validity of the calculated GFR GFRAA in patients over 70 years has not been determined. Clinical correlation is essential. Performed By: #### L 100.0100, L500.4100, L501.9910, L500.4050 #### [facility] [address] [place], [address] EST GFR - AA 87 mL/min Normal >60 [facility] Comment on above: Result Comment: Afri can [place] GFR Calc Performed By: #### L 100.0100, L500.4100, L501.9910, L500.4050 #### [facility] [address] [place], [address] GAP 6 Normal 5-15 [facility] Comment on above: Performed By: #### L 100.0100, L500.4100, L501.9910, L500.4050 #### [facility] [address] [place], [address] GFR/1.73 sq M.predicted among non-blacks MDRD (S/P/Bld) [Vol rate/Area] 72 mL/min/{1.73_m2} Normal >60 [facility] Comment on above: Result Comment: Non- GFR Calc Performed By: #### L 100.0100, L500.4100, L501.9910, L500.4050 #### [facility] [address] [place], [address] Globulin (S) [Mass/Vol] 3.7 g/dL Normal 2.2-4.2 [facility] Comment on above: Performed By: #### L 100.0100, L500.4100, L501.9910, L500.4050 #### [facility] [address] [place], [address] Glucose [Mass/Vol] 120 mg/dL High 74-106 [facility] Comment on above: Result Comment: Fast ing Glucose result from 100 to 125 mg/dL suggests IMPAIRED HOMEOSTASIS per A.D.A. criteria. Performed By: #### L 100.0100, L500.4100, L501.9910, L500.4050 #### [facility] [address] [place], [address] Potassium [Moles/Vol] 4.0 mmol/L Normal 3.5-5.1 [facility] Comment on above: Performed By: #### L 100.0100, L500.4100, L501.9910, L500.4050 #### [facility] [address] [place], [address] Sodium [Moles/Vol] 139 mmol/L Normal 136-145 [facility] Comment on above: Performed By: #### L 100.0100, L500.4100, L501.9910, L500.4050 #### [facility] [address] [place], [address] T PROT 7.7 g/dL Normal 6.4-8.2 [facility] Comment on above: Performed By: #### L 100.0100, L500.4100, L501.9910, L500.4050 #### [facility] [address] [place], [address] Urea nitrogen [Mass/Vol] 12 mg/dL Normal 7-18 [facility] Comment on above: Performed By: #### L 100.0100, L500.4100, L501.9910, L500.4050 #### [facility] [address] [place], [address] Internal Medicine Office Vis iton 05-16-2024 Internal Medicine Office Visit [facility] [address] [place] [address] [place] [address] OFFICE VISIT Date of Service: 05/16/24 MR#: [id number] Acct: [id number] Name: ANITA GUZMAN Rep #: [id number] : 1950 Provider: Dr. 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: No Accompanied by: Self Is patient in pain?: No Allergies No Known Allergies Allergy (Verified 05/16/24 13:51) Medications ???Medication ???Instructions ???Recorded ???Confirmed ???Type aspirin 81 mg tablet,delayed 81 mg PO DAILY 08/06/18 05/16/24 H istory release (Adult Aspirin Regimen) acetaminophen 500 mg capsule 500 mg PO Q6H PRN pain #30 caps 05/16/24 Rx albuterol sulfate 2.5 mg/3 mL 2.5 mg (3 mL) inhalation Q4H PRN 0 06/15/20 05/16/24 Rx (0.083 %) solution for nebulization Sob /Or Wheezing #180 mL multivitamin (One Daily 1 tab PO DAILY 06/23/21 05/16/24 H istory Multivitamin tablet) diazepam 2 mg tablet 2 mg PO TID PRN PRN Vertigo #10 05/16/24 Rx TABLETS Disability Placard #1 ea 03/16/23 05/16/24 Rx furosemide 40 mg tablet 40 mg PO DAILY #90 tabs 04/04/23 0 05/16/24 Rx Held on 08/22/23. Instructions: blurred vision trazodone 50 mg tablet See Rx Instructions .Route 4 05/16/24 Rx .COMPLEX #90 tabs isosorbide mononitrate 30 mg 15 mg (1/2 x 30 mg) PO DAILY #45 0 01/08/24 05/16/24 Rx tablet,extended release 24 hr tabs pramipexole 0.25 mg tablet 0.25 mg PO QHS #90 tabs 01/22/24 0 05/16/24 Rx cetirizine 10 mg capsule 10 mg PO HS #90 caps 02/16/2404/19 Rx albuterol sulfate 90 mcg/actuation 2 puff inhalation Q6H PRN 05/16/24 Rx aerosol inhaler shortness of breath or wheezing #18 grams alfuzosin 10 mg tablet,extended 10 mg PO DAILY #90 tabs 02/19/24 0 05/16/24 Rx release 24 hr amlodipine 10 mg tablet 10 mg PO DAILY #90 tabs 02/19/24 0 05/16/24 Rx dutasteride 0.5 mg capsule 0.5 mg PO DAILY #90 caps 02/19/24 05/16/24 Rx fluticasone fur. 200 mcg-umeclid 1 inh inhalation DAILY #60 ea 08/0805/16/24 Rx 62.5 mcg-vilant 25 mcg inhalat.powder (Trelegy Ellipta) gabapentin 400 mg capsule 400 mg PO TID #90 caps 02/19/24 Rx omeprazole 20 mg capsule,delayed 20 mg PO DAILY #90 caps 02/19/24 0 05/16/24 Rx release montelukast 10 mg tablet 10 mg PO QPM #90 tabs 03/18/24 Rx atorvastatin 40 mg tablet 40 mg PO DAILY #90 tabs 03/30/24 0 05/16/24 Rx Have you fallen in the past year?: No PFSH Medical History (Updated 05/16/24 @ 14:[address] Sharon Osorio MD) Health care maintenance Asthmatic bronchitis with exacerbation Blood glucose elevated Swallowing disorder Acute bronchitis, unspecified Emphysema with both acute and chronic bronchitis Restless leg syndrome Encounter for preventative adult health care examination Abdominal pain Flu vaccine need Insomnia COVID-19 vaccine series completed GERD (gastroesophageal reflux disease) Abdominal pain Stage 3 severe COPD by GOLD classification Shingles (herpes zoster) polyneuropathy neck and back pain Asthma Shoulder pain Shortness of breath Arthritis Depression with anxiety Benign prostatic hyperplasia Coronary artery disease Colon enlargement Atherosclerosis of coronary artery of [place] heart without angina pectoris Essential hypertension Cardiac tamponade (07/29/18) Abnormal stress test ( 06/30/18) Hyperlipidemia History of depression History of anxiety History of restless legs syndrome Emphysema of lung History of erectile dysfunction Surgical History History of open reduction and internal fixation (ORIF) procedure S/P pericardiocentesis (08/01/18) Presence of stent in coronary artery (08/01/18) History of ankle surgery ( 2008) History of colonoscopy Family History Mother Cancer leukemia Father Heart disease Myocardial infarction Sister COPD (chronic obstructive pulmonary disease) Brother COPD (chronic obstructive pulmonary disease) Cancer liver Social History Smoking Status: Former smoker quit date: 05/18/01 Tobacco: How many years used: 40 alcohol intake: former details: 2000 substance use type: former substance user Date of last u (more content not included)... [facility] Lipid Profileon 05-16-2024 Cholesterol [Mass/Vol] 148 mg/dL Normal 200 [facility] Comment on above: Result Comment: <200 mg/dL Desirable 200-240 mg/dL Borderline >240 mg/dL High Risk Performed By: #### L 100.0100, L500.4100, L501.9910, L500.4050 #### [facility] [address] [place], [address] Cholesterol in HDL [Mass/Vol] 60 mg/dL Normal [facility] Comment on above: Result Comment: The drugs N-Acetylcysteine and Metamizole may falsely depress this assay. Reference Range HDL <40 mg/dL Low HDL Cholesterol HDL >or= 60 mg/dL High HDL Cholesterol Performed By: #### L 100.0100, L500.4100, L501.9910, L500.4050 #### [facility] [address] [place], [address] Cholesterol in LDL [Mass/Vol] 53 mg/dL Normal 0-130 [facility] Comment on above: Performed By: #### L 100.0100, L500.4100, L501.9910, L500.4050 #### [facility] [address] [place], [address] Cholesterol in VLDL [Mass/Vol] 35 mg/dL Normal 5-40 [facility] Comment on above: Performed By: #### L 100.0100, L500.4100, L501.9910, L500.4050 #### [facility] [address] [place], [address] Triglyceride [Mass/Vol] 175 mg/dL Normal [facility] Comment on above: Result Comment: The drugs N-Acetylcysteine and Metamizole may falsely depress this assay. Serum Triglycerides Reference Interval Normal <150 mg/dL Borderline high 150 - 199 mg/dL High 200 - 499 mg/dL Very High > or = 500 mg/dL Performed By: #### L 100.0100, L500.4100, L501.9910, L500.4050 #### [facility] [address] [place], [address] PSA,Total - Annual Screenon 05-16-2024 PSA,TOT SCREEN 1.83 ng/mL Normal 0.00-4.00 [facility] Comment on above: Result Comment: This test was performed using the TPSA assay method for the [employer] chemistry system. Values obtained with different assay methods cannot be used interchangably. When changing PSA assays in the course of monitoring a patient, additional sequential testing should be carried out to confirm baseline values. Performed By: #### L 100.0100, L500.4100, L501.9910, L500.4050 #### [facility] [address] [place], [address] Urgent Care Visit Reporton 0 01-07-2024 Urgent Care Visit Report [facility] [address], [address] [place], [place] [address] OFFICE VISIT Date of Service: 01/07/24 MR#: [id number] Acct: [id number] Name: ANITA GUZMAN Rep #: [id number] : 1950 Provider: LEONIDAS osborne Age/Sex: 73/M Location: [facility] Status: Signed Intake Vital Signs 12/25/23 13:56 01/07/24 09:22 Height 5 ft 8 in Weight: 163 lb BMI 24.7 BP 132/96 H 96/62 Blood Pressure Location Lt brachial Rt brachial Position Sitting Sitting Respiration 16 17 Pulse 83 103 H Pulse Source Monitor NIBP Temp 97.6 F L 97.9 F Temp Source Temporal Temporal Pulse Oximetry (%) 93 97 Oxygen Delivery Method room air room air Intake Visit Reasons: BODY ACHES, CHILLS Chief Complaint: BA, DALY, chills/sweats, fatigue Hazardous Material Specialist Required: No Is patient in pain?: No Allergies No Known Allergies Allergy (Verified 01/07/24 09:32) Have you fallen in the past year?: No Nurse's Note: BA, DALY, chills/sweats, fatigue x 48 hours. concern for covid [facility] Medical History Asthmatic bronchitis with exacerbation Blood glucose elevated Swallowing disorder Acute bronchitis, unspecified Emphysema with both acute and chronic bronchitis Restless leg syndrome Encounter for preventative adult health care examination Abdominal pain Flu vaccine need Insomnia COVID-19 vaccine series completed GERD (gastroesophageal reflux disease) Abdominal pain Stage 3 severe COPD by GOLD classification Shingles (herpes zoster) polyneuropathy neck and back pain Asthma Shoulder pain Shortness of breath Arthritis Depression with anxiety Benign prostatic hyperplasia Coronary artery disease Colon enlargement Atherosclerosis of coronary artery of [place] heart without angina pectoris Essential hypertension Cardiac tamponade (07/29/18) Abnormal stress test ( 06/30/18) Hyperlipidemia History of depression History of anxiety History of restless legs syndrome Emphysema of lung History of erectile dysfunction Surgical History History of open reduction and internal fixation (ORIF) procedure S/P pericardiocentesis (08/01/18) Presence of stent in coronary artery (08/01/18) History of ankle surgery ( 2008) History of colonoscopy Family History Mother Cancer leukemia Father Heart disease Myocardial infarction Sister COPD (chronic obstructive pulmonary disease) Brother COPD (chronic obstructive pulmonary disease) Cancer liver Social History Smoking Status: Former smoker quit date: 05/18/01 Tobacco: How many years used: 40 alcohol intake: former details: 2000 substance use type: former substance user Date of last use: marijuana currently, other drugs quit in 2008, marijuana, crack/cocaine, hallucinogens and club/ug designer drugs caffeine: Yes Type: coffee Number of servings: 2 what type of physical activity do you participate in: none HPI HPI Chief Complaint: BA, DALY, chills/sweats, fatigue Details: ANITA GUZMAN, is a 73 M who presents to the office today for concerns regarding body aches, headaches, chills/sweats, and fatigue. Prior to evaluation, he underwent COVID and flu testing. He was negative for COVID 19, flu A, and flu B. This has been ongoing for 48 hours. This is not worsening. He has not taken temperature at home. He has not taken OTC medications. ROS Const Constitutional: Positive for body ache, chills, fatigue, headache(s) and change in appetite (reduced intake); No fever(s) Eyes Eyes: No blurry vision, change in vision, double vision, irritation, discharge, vision loss, dry eyes, bulging eyes, floaters, visual disturbances, eye pain, Light sensitivity, spots in vision, tunnel vision or other ENT ENT: Positive for headache(s) and neck pain; No ear or mastoid pain, ear discharge, ear pressure, tinnitus, dizziness/vertigo, nosebleed/epistaxis, nasal congestion, nose pain, sinus pressure, sinus pain, nasal discharge, post nasal drip, facial pain, dental pain, difficulty swallowing, bad breath, hoarseness, lip swelling, mouth lesions, mouth pain, sore throat, tongue swelling or throat swelling Resp Respiratory: Positive for cough (normal) Cough: Yes productive, change in phlegm color (not yellow) and shortness of breath (More than usual) sob: SOB with activity; No chest congestion, hemoptysis, pain on inspiration, pain with cough, stridor or wheezing Cardio Cardiology: No chest pain at rest, chest pain with exertion, shortness of breath, dyspnea on exertion or lightheadedness Gastro GI: Positive for other (dark stool); No abdominal pain, change in bowel habits, constipation (more content not included)... [facility] Low Dose CT Lung Screeningon 12-25-[address] Lung Screening [facility] Imaging Services [address] [address] Lung Screening MR#: [id number] Acct: [id number] Name: ANITA GUZMAN Rep #: [id number] : 1950 M 73 From: Marcos Benitez MD PCP: Dr. Sharon Osorio MD Status: [facility] Study: Low Dose CT Lung Screening Date of Exam: 12/24 Exam# [id number] Ordering Dr: Sharon Hester NP [employer]-C [id number] EXAM: CT CHEST, LUNG CANCER SCREENING WITHOUT INTRAVENOUS CONTRAST CLINICAL INDICATION: smoking history TECHNIQUE: Helically acquired images were obtained of the chest without intravenous contrast using low dose (LDCT) lung cancer screening protocol. This CT exam was performed using one or more of the following dose reduction techniques: automated exposure control, adjustment of the mA and/or kV according to patient size, and/or use of iterative reconstruction technique. COMPARISON: 12/01/2022 FINDINGS: LUNGS AND PLEURAL SPACES: There are emphysematous changes in both lungs. No mass. No pleural effusion or thickening. No pneumothorax. HEART: Unremarkable. Heart size is normal. No pericardial effusion. No significant coronary artery calcifications. MEDIASTINUM: Unremarkable. No mediastinal or hilar adenopathy. Esophagus is unremarkable. No hiatal hernia. THYROID: Unremarkable. No thyroid lesions. BONES/JOINTS: Unremarkable. No suspicious lytic or blastic abnormality. VASCULATURE: Unremarkable. Thoracic aorta is non-dilated. LYMPH NODES: Unremarkable. No enlarged lymph nodes. CT/Low Dose CT Lung Screening IMPRESSION: No acute pulmonary abnormality. There are no pulmonary nodules. There are stable emphysematous changes in both lungs. Lung-RADS score: 1 - Recommend continued annual screening with a low-dose CT (LDCT) in 12 months. Electronically Signed: Marcos Benitez MD at 0:03 EDT , CC: [employer]LE[employer] OPERATORKatherine Hester; Dr. Sharon Osorio MD Candy Attendant: Signed [facility] Modified Barium Swallow Stud yon 12-25-2023 Modified Barium Swallow Study [facility] Speech Pathology [address] [place] [address] Modified Barium Swallow Study MR#: [id number] Acct: [id number] Name: ANITA GUZMAN Rep #: [id number] : 1950 73 From: Louise Adame M.A., [facility] MACHINE OPERATOR Modified Barium Swallow Patient Information Study Date: 12/25/23 Study Time: 13:00 Direct Billable Minutes: 90 Total Minutes procedure reportin Diagnosis: Dysphagia R13.10 Referring Physician: Sharon Osorio Reason for Referral: Objectively assess swallow function, assess risk for aspiration, and determine recommendations for least restrictive diet textures and compensatory strategies to improve safety of swallow. Medical History: PMH per chart review (See EMR for full PMH): Dysphagia, URI, acute bronchitis, GERD, abdominal pain, COPD, COVID-19, Smoker, CAD, HTN, HLD, chest pain, insomnia. Per patient, he believes he had TIA 2018, but had no official CVA work up as he did not go to the ED at the time despite friends encouraging him to do so. He also reported PNA in 2008. Patient reports swallowing difficulty for the past 6-7 months, 1X/month characterized by sensation of food particles (e.g. crackers, spaghetti) going down the wrong way or getting hung up in the base of his throat. He had a coughing spell after consuming spaghetti with expectoration of small piece of spaghetti hours later. Odynophagia (pain level 3-4/10) when foods feel caught in his throat. He also reports having frequent chest colds w/ current symptoms of runny nose and coughing since 12/23/2023 - Patient is going to urgent care after this appointment per patient. Current Diet Ordered: Regular textures / Thin liquids Mental Status: WNL Respiratory Status: Oxygenating on Room Air Penetration-Aspiration Scale Penetration-Aspiration Scale: OBJECTIVE ASSESSMENT OF SWALLOW FUNCTION (QUANTITATIVE ??? PER TRIAL): PENETRATION / ASPIRATION SCALE (APPLE): 1 = does not enter airway 2 = enters airway/above vocal folds/ejected 3 = enters airway/above vocal folds/not ejected 4 = enters airway/contacts vocal folds/ejected 5 = enters airway/contacts vocal folds/not ejected 6 = enters airway/below vocal folds/ejected 7 = enters airway/below vocal folds/not ejected despite effort 8 = enters airway/below vocal folds/no effort VIDEOFLOROSCOPIC SCALE SCORE (APPLE): Grade I = aspiration of material that has penetrated into the laryngeal vestibule, intact cough reflex Grade II = aspiration < 10 % of the bolus, intact cough reflex Grade III = aspiration of < 10 % of the bolus, reduced cough reflex or aspiration of > 10 % of the bolus, intact cough reflex Grade IV = aspiration of > 10 % of the bolus, reduced cough reflex Penetration-Aspiration Scale Score Thin Liquid via teaspoon: Result: 1= does not enter airway Thin Liquid via teaspoon Trial 2: Result: 1= does not enter airway Thin Liquid via large single sip: cup: Result: 3= enters airways/above vocal folds/not ejected (trace) [place] Thick Liquid via large single sip: cup: Result: 1= does not enter airway Pudding via teaspoon: Result: 1= does not enter airway 1/2 Cookie: Result: 1= does not enter airway Comment: Esophageal screen - Retention of cookie in the mid and lower esophagus. Thin Liquid via sequential sips:straw: Result: 3= enters airways/above vocal folds/not ejected Comment: Esophageal screen - Cookie had cleared. Mild retention of liquids in lower esophagus. Retrograde flow of barium through LES to lower esophagus. Thin Liquid via small single sip: cup Effortful swallow: Result: 1= does not enter airway Oral Phase Labial Seal: No Labial Escape Tongue Control During Bolus Hold: Posterior escape of less than half of bolus Bolus Preparation/Mastication: Timely and efficient chewing and mashing Bolus Transport/Lingual Motion: Repetitive/disorganized tongue motion Oral Residue: Residue collection on oral structures Pharyngeal Phase Initiation of Pharyngeal Swallow: Bolus head in pyriforms Soft Palate Elevation: Trace column of contrast/air between soft palate and pharyngeal wall Laryngeal Elevation: Partial superior movement thyroid cart/partial apprx aryt-epig petiole Anterior Hyoid Excursion: Partial anterior movement Epiglottic Movement: Complete inversion Laryngeal Vestibule Closure at Height of Swallow: Incomplete; narrow column of air/contrast in laryngeal vestibule Pharyngeal Stripping Wave: Present - diminished Pharyngoesophageal Segment Opening: Parital distension and partial duration; parital obstruction of flow Tongue Base Retraction: Wide column of contrast between tongue base post. pharyngeal wall Pharyngeal Residue: Collection of residue within or on pharyngeal structures Esophageal Phase Esophageal Clearance: Esophageal retention w/ retrograde flow below pharyngoesophageal seg. Treatment Strategies Effects of treatment strategies attemped:: Effortful (more content not included)... [facility] Urgent Care Visit Reporton 0 12-25-2023 Urgent Care Visit Report [facility] [address], [address] [place] [address] OFFICE VISIT Date of Service: 12/25/23 MR#: [id number] Acct: [id number] Name: ANITA GUZMAN Rep #: [id number] : 1950 Provider: ELEN Castro Age/Sex: 73/M Location[facility] Status: Signed Intake Vital Signs 12/20/23 08:30 12/25/23 13:56 Height 5 ft 8 in 5 ft 8 in Weight: 163 lb BMI 24.7 BP 132/96 H Blood Pressure Location Lt brachial Position Sitting Respiration 16 Pulse 83 Pulse Source Monitor Temp 97.6 F L Temp Source Temporal Pulse Oximetry (%) 93 Oxygen Delivery Method room air Intake Visit Reasons: CONGESTION/SINUS COMP Chief Complaint: CONGESTION SINUS COMPLAINTS HEADACHE RUNNY NOSE Hazardous Material Specialist Required: No Accompanied by: Self Is patient in pain?: No Allergies No Known Allergies Allergy (Verified 12/25/23 13:57) Medications ???Medication ???Instructions ???Recorded ???Confirmed ???Type aspirin 81 mg tablet,delayed 81 mg PO DAILY 08/06/18 12/25/23 History release (Adult Aspirin Regimen) acetaminophen 500 mg capsule 500 mg PO Q6H PRN pain #30 caps 10/02/18 12/25/23 Rx albuterol sulfate 2.5 mg/3 mL 2.5 mg (3 mL) inhalation Q4H PRN 06/15/20 12/25/23 Rx (0.083 %) solution for nebulization Sob /Or Wheezing #180 mL omeprazole 20 mg capsule,delayed 20 mg PO DAILY #90 caps 03/03/21 12/25/23 Rx release multivitamin (One Daily 1 tab PO DAILY 06/23/21 12/25/23 History Multivitamin tablet) guaifenesin 400 mg tablet 400 mg PO Q4H PRN cough, 03/01/22 12/25/23 Rx congestion #60 tabs diazepam 2 mg tablet 2 mg PO TID PRN PRN Vertigo #10 03/12/22 12/25/23 Rx TABLETS guaifenesin 1,200 mg tablet, 1,200 mg PO Q12H #90 tabs 12/07/22 12/25/23 Rx extended release 12 hr montelukast 10 mg tablet 10 mg PO QPM #90 tabs 03/06/23 12/25/23 Rx albuterol sulfate 90 mcg/actuation 2 puff inhalation Q6H PRN 03/15/23 12/25/23 Rx aerosol inhaler (ProAir HFA) shortness of breath or wheezing #18 grams alfuzosin 10 mg tablet,extended 10 mg PO DAILY #90 tabs 03/15/23 12/25/23 Rx release 24 hr amlodipine 10 mg tablet 10 mg PO DAILY #90 tabs 03/15/23 12/25/23 Rx Disability Placard #1 ea 03/16/23 12/25/23 Rx atorvastatin 40 mg tablet 40 mg PO DAILY #90 tabs 03/22/23 12/25/23 Rx ferrous sulfate 325 mg (65 mg 325 mg PO DAILY #90 tabs 04/04/23 12/25/23 Rx iron) tablet furosemide 40 mg tablet 40 mg PO DAILY #90 tabs 04/04/23 12/25/23 Rx isosorbide mononitrate 30 mg 15 mg (1/2 x 30 mg) PO DAILY #45 07/06/23 12/25/23 Rx tablet,extended release 24 hr tabs cetirizine 10 mg capsule 10 mg PO HS #90 caps 08/08/23 12/25/23 Rx pramipexole 0.25 mg tablet 0.25 mg PO QHS #90 tabs 08/08/23 12/25/23 Rx fluticasone fur. 200 mcg-umeclid 1 inh inhalation DAILY #60 ea 09/10/23 12/25/23 Rx 62.5 mcg-vilant 25 mcg inhalat.powder (Trelegy Ellipta) dutasteride 0.5 mg capsule 0.5 mg PO DAILY #90 caps 09/15/23 12/25/23 Rx gabapentin 400 mg capsule 400 mg PO TID #90 caps 09/15/23 12/25/23 Rx amoxicillin 875 mg-potassium 1 tab PO BID #20 tabs 11/05/23 12/25/23 Rx clavulanate 125 mg tablet trazodone 50 mg tablet See Rx Instructions .Route 11/28/23 12/25/23 Rx .COMPLEX #90 tabs doxycycline monohydrate 100 mg 100 mg PO BID #20 caps 12/25/23 12/25/23 Rx capsule methylprednisolone 4 mg tablets in See Rx Instructions PO PER PKG DIR 12/25/23 12/25/23 Rx a dose pack (Medrol ([place])) #21 tabs Have you fallen in the past year?: No Nurse's Note: pt declined covid and flu testing at this time. [facility] Medical History (Updated 12/25/23 @ 14:36 by Colin MYRICK, PA) Asthmatic bronchitis with exacerbation Blood glucose elevated Swallowing disorder Acute bronchitis, unspecified Emphysema with both acute and chronic bronchitis Restless leg syndrome Encounter for preventative adult health care examination Abdominal pain Flu vaccine need Insomnia COVID-19 vaccine series completed GERD (gastroesophageal reflux disease) Abdominal pain Stage 3 severe COPD by GOLD classification Shingles (herpes zoster) polyneuropathy neck and back pain Asthma Shoulder pain Shortness of breath Arthritis Depression with anxiety Benign prostatic hyperplasia Coronary artery disease Colon enlargement Atherosclerosis of coronary artery of [place] heart without angina pectoris Essential hypertension Cardiac tamponade (07/29/18) Abnormal stress test ( 06/30/18) Hyperlipidemia History of depression History of anxiety History of restless legs syndrome Emphysema of lung History of erectile dysfunction Surgical History History of open reduction and internal fixation (ORIF) procedure S/P pericardiocentesis (08/01/18) Presence of stent in cor (more content not included)... [facility] Hemoglobin A1con 11-14-2023 HbA1c (Bld) [Mass fraction] 5.8 % High 3.8-5.6 [facility] Comment on above: Result Comment: Norm al < 5.7 % Prediabetic 5.7 - 6.4 % Diabetic >or= 6.5 % Please note range changes. Performed By: #### L 501.9985 #### [facility] [address] [place], [address] Basic Metabolic Profile (BMP )on 11-13-2023 BUN/CRE 10.0 RATIO Normal 10-20 [facility] Comment on above: Performed By: #### L 500.2500, L100.0100 #### [facility] [address] [place], [address] CA,Total 9.5 mg/dL Normal 8.5-10.1 [facility] Comment on above: Performed By: #### L 500.2500, L100.0100 #### [facility] [address] [place], [address] Chloride [Moles/Vol] 107 mmol/L Normal 98-107 [facility] Comment on above: Performed By: #### L 500.2500, L100.0100 #### [facility] [address] [place], [address] CO2 [Moles/Vol] 23.0 mmol/L Normal 21.0-32.0 [facility] Comment on above: Performed By: #### L 500.2500, L100.0100 #### [facility] [address] [place], [address] Creatinine [Mass/Vol] 1.00 mg/dL Normal 0.70-1.30 [facility] Comment on above: Result Comment: The validity of the calculated GFR GFRAA in patients over 70 years has not been determined. Clinical correlation is essential. Performed By: #### L 500.2500, L100.0100 #### [facility] [address], [address] EST GFR - AA 94 mL/min Normal >60 [facility] Comment on above: Result Comment: Afri can [place] GFR Calc Performed By: #### L 500.2500, L100.0100 #### [facility] [address] [place], [address] GAP 6 Normal 5-15 [facility] Comment on above: Performed By: #### L 500.2500, L100.0100 #### [facility] [address] [place], [address] GFR/1.73 sq M.predicted among non-blacks MDRD (S/P/Bld) [Vol rate/Area] 78 mL/min/{1.73_m2} Normal >60 [facility] Comment on above: Result Comment: Non- GFR Calc Performed By: #### L 500.2500, L100.0100 #### [facility] [address], [address] Glucose [Mass/Vol] 133 mg/dL High 74-106 [facility] Comment on above: Result Comment: Fast ing Glucose result greater than or equal to 126 mg/dL suggests DIABETES MELLITUS per A.D.A. criteria. Performed By: #### L 500.2500, L100.0100 #### [facility] [address] [place], [address] Potassium [Moles/Vol] 3.9 mmol/L Normal 3.5-5.1 [facility] Comment on above: Performed By: #### L 500.2500, L100.0100 #### [facility] [address] [place], [address] Sodium [Moles/Vol] 136 mmol/L Normal 136-145 [facility] Comment on above: Performed By: #### L 500.2500, L100.0100 #### [facility] [address] [place], [address] Urea nitrogen [Mass/Vol] 10 mg/dL Normal 7-18 [facility] Comment on above: Performed By: #### L 500.2500, L100.0100 #### [facility] [address] [place], [address] CBC W/Diff, Automatedon 07- Absolute Lymph 1.30 X10 3/uL Normal 0.83-4.51 [facility] Comment on above: Performed By: #### L 500.2500, L100.0100 #### [facility] [address] [place], [address] Absolute Neut 6.8 X10 3/uL Normal 2.0-7.7 [facility] Comment on above: Performed By: #### L 500.2500, L100.0100 #### [facility] [address] [place], [address] Basophils/100 WBC (Bld) 0.6 % Normal 0-1 [facility] Comment on above: Performed By: #### L 500.2500, L100.0100 #### [facility] [address] [place], [address] Eosinophils/100 WBC (Bld) 2.2 % Normal 0-5 [facility] Comment on above: Performed By: #### L 500.2500, L100.0100 #### [facility] [address] [place], [address] Erythrocyte distribution width (RBC) [Ratio] 13.2 % Normal 11.6-14.6 [facility] Comment on above: Performed By: #### L 500.2500, L100.0100 #### [facility] [address] [place], [address] Hematocrit (Bld) [Volume fraction] 45.0 % Normal 40-54 [facility] Comment on above: Performed By: #### L 500.2500, L100.0100 #### [facility] [address] [place], [address] Hemoglobin (Bld) [Mass/Vol] 15.0 g/dL Normal 13.0-16.5 [facility] Comment on above: Performed By: #### L 500.2500, L100.0100 #### [facility] [address] [place], [address] IG% 1.100 High 0.0-0.9 [facility] Comment on above: Result Comment: IG% - Immature Granulocytes (promyelocytes, myelocytes and metamyelocytes) > 1% indicates that a LEFT SHIFT is Present. Performed By: #### L 500.2500, L100.0100 #### [facility] [address] [place], [address] Lymphocytes/100 WBC (Bld) 14.1 % Low 19-41 [facility] Comment on above: Performed By: #### L 500.2500, L100.0100 #### [facility] [address] [place], [address] MCH (RBC) [Entitic mass] 28.7 pg Normal 27.0-32.0 [facility] Comment on above: Performed By: #### L 500.2500, L100.0100 #### [facility] [address] [place], [address] MCHC (RBC) [Mass/Vol] 33.3 g/dL Normal 32-36 [facility] Comment on above: Performed By: #### L 500.2500, L100.0100 #### [facility] [address] [place], [address] MCV (RBC) [Entitic vol] 86.2 fL Normal 80-94 [facility] Comment on above: Performed By: #### L 500.2500, L100.0100 #### [facility] [address] [place], [address] Monocytes/100 WBC (Bld) 9.1 % Normal 0-10 [facility] Comment on above: Performed By: #### L 500.2500, L100.0100 #### [facility] [address] [place], [address] Neutrophils/100 WBC (Bld) 72.9 % High 47-70 [facility] Comment on above: Performed By: #### L 500.2500, L100.0100 #### [facility] [address] [place], [address] Nucleated RBC (Bld) [#/Vol] 0 10*3/uL Normal 0-5 [facility] Comment on above: Performed By: #### L 500.2500, L100.0100 #### [facility] [address] [place], [address] Platelet mean volume (Bld) [Entitic vol] 10.0 fL Normal 6.2-12.0 [facility] Comment on above: Performed By: #### L 500.2500, L100.0100 #### [facility] [address] [place], [address] Platelets (Bld) [#/Vol] 308 10*3/uL Normal 150-450 [facility] Comment on above: Performed By: #### L 500.2500, L100.0100 #### [facility] [address] [place], [address] RBC (Bld) [#/Vol] 5.22 10*6/uL Normal 4.6-6.2 [facility] Comment on above: Performed By: #### L 500.2500, L100.0100 #### [facility] [address] [place], [address] RDW SD 41.0 fl Normal 35.1-43.9 [facility] Comment on above: Performed By: #### L 500.2500, L100.0100 #### [facility] [address] [place], [address] WBC (Bld) [#/Vol] 9.3 10*3/uL Normal 4.4-11.0 [facility] Comment on above: Performed By: #### L 500.2500, L100.0100 #### [facility] [address] [place], [address] Internal Medicine Office Vis iton 11-13-2023 Internal Medicine Office Visit [facility] [address] [place] [address] OFFICE VISIT Date of Service: 11/13/23 MR#: [id number] Acct: [id number] Name: ANITA GUZMAN Rep #: [id number] : 1950 Provider: Dr. Sharon street MD Age/Sex: 73/M Location: [facility] Status: Signed Intake Vital Signs 11/05/23 09:28 11/13/23 10:56 Height 5 ft 8 in 5 ft 8 in Weight: 166 lb 4 oz 167 lb BMI 25.2 25.4 BP 124/60 H 122/64 H Blood Pressure Location Lt brachial Position Sitting Sitting Respiration 18 Pulse 93 80 Pulse Source Monitor Temp 98.7 F 97.8 F Temp Source Temporal Temporal Pulse Oximetry (%) 95 96 Oxygen Delivery Method room air room air Intake Visit Reasons: FOLLOW UP Chief Complaint: FU Chronic Conditions Hazardous Material Specialist Required: No Is patient in pain?: No Allergies No Known Allergies Allergy (Verified 11/13/23 10:51) Medications ???Medication ???Instructions ???Recorded ???Confirmed ???Type aspirin 81 mg tablet,delayed 81 mg PO DAILY 08/06/18 11/13/23 History release (Adult Aspirin Regimen) acetaminophen 500 mg capsule 500 mg PO Q6H PRN pain #30 caps 10/02/18 11/13/23 Rx albuterol sulfate 2.5 mg/3 mL 2.5 mg (3 mL) inhalation Q4H PRN 06/15/20 11/13/23 Rx (0.083 %) solution for nebulization Sob /Or Wheezing #180 mL omeprazole 20 mg capsule,delayed 20 mg PO DAILY #90 caps 03/03/21 11/13/23 Rx release multivitamin (One Daily 1 tab PO DAILY 06/23/21 11/13/23 History Multivitamin tablet) guaifenesin 400 mg tablet 400 mg PO Q4H PRN cough, 03/01/22 11/13/23 Rx congestion #60 tabs diazepam 2 mg tablet 2 mg PO TID PRN PRN Vertigo #10 03/12/22 11/13/23 Rx TABLETS trazodone 50 mg tablet See Rx Instructions .Route 11/08/22 11/13/23 Rx .COMPLEX #90 tabs guaifenesin 1,200 mg tablet, 1,200 mg PO Q12H #90 tabs 12/07/22 11/13/23 Rx extended release 12 hr montelukast 10 mg tablet 10 mg PO QPM #90 tabs 03/06/23 11/13/23 Rx albuterol sulfate 90 mcg/actuation 2 puff inhalation Q6H PRN 03/15/23 11/13/23 Rx aerosol inhaler (ProAir HFA) shortness of breath or wheezing #18 grams alfuzosin 10 mg tablet,extended 10 mg PO DAILY #90 tabs 03/15/23 11/13/23 Rx release 24 hr amlodipine 10 mg tablet 10 mg PO DAILY #90 tabs 03/15/23 11/13/23 Rx Disability Placard #1 ea 03/16/23 11/13/23 Rx atorvastatin 40 mg tablet 40 mg PO DAILY #90 tabs 03/22/23 11/13/23 Rx ferrous sulfate 325 mg (65 mg 325 mg PO DAILY #90 tabs 04/04/23 11/13/23 Rx iron) tablet furosemide 40 mg tablet 40 mg PO DAILY #90 tabs 04/04/23 11/13/23 Rx isosorbide mononitrate 30 mg 15 mg (1/2 x 30 mg) PO DAILY #45 07/06/23 11/13/23 Rx tablet,extended release 24 hr tabs cetirizine 10 mg capsule 10 mg PO HS #90 caps 08/08/23 11/13/23 Rx pramipexole 0.25 mg tablet 0.25 mg PO QHS #90 tabs 08/08/23 11/13/23 Rx fluticasone fur. 200 mcg-umeclid 1 inh inhalation DAILY #60 ea 09/10/23 11/13/23 Rx 62.5 mcg-vilant 25 mcg inhalat.powder (Trelegy Ellipta) dutasteride 0.5 mg capsule 0.5 mg PO DAILY #90 caps 09/15/23 11/13/23 Rx gabapentin 400 mg capsule 400 mg PO TID #90 caps 09/15/23 11/13/23 Rx amoxicillin 875 mg-potassium 1 tab PO BID #20 tabs 11/05/23 11/13/23 Rx clavulanate 125 mg tablet Have you fallen in the past year?: No PFSH Medical History (Updated 11/13/23 @ 16:[address] Sharon Osorio MD) Swallowing disorder Acute bronchitis, unspecified Emphysema with both acute and chronic bronchitis Restless leg syndrome Encounter for preventative adult health care examination Abdominal pain Flu vaccine need Insomnia COVID-19 vaccine series completed GERD (gastroesophageal reflux disease) Abdominal pain Stage 3 severe COPD by GOLD classification Shingles (herpes zoster) polyneuropathy neck and back pain Asthma Shoulder pain Shortness of breath Arthritis Depression with anxiety Benign prostatic hyperplasia Coronary artery disease Colon enlargement Atherosclerosis of coronary artery of [place] heart without angina pectoris Essential hypertension Cardiac tamponade (07/29/18) Abnormal stress test ( 06/30/18) Hyperlipidemia History of depression History of anxiety History of restless legs syndrome Emphysema of lung History of erectile dysfunction Surgical History History of open reduction and internal fixation (ORIF) procedure S/P pericardiocentesis (08/01/18) Presence of stent in coronary artery (08/01/18) History of ankle surgery ( 2008) History of colonoscopy Family History Mother Cancer leukemia Father Heart disease Myocardial infarction Sister COPD (chronic obstructive pulmonary disease) Brother COPD (chronic obstructive pulmonary diseas (more content not included)... [facility] Visit Reporton 0 11-05-2023 Urgent Care Visit Report [facility] [address], [address] [place] [address] OFFICE VISIT Date of Service: 11/05/23 MR#: [id number] Acct: [id number] Name: ANITA GUZMAN Rep #: [id number] : 1950 Provider: LEONIDAS osborne Age/Sex: 73/M Location: [facility] Status: Signed Intake Vital Signs 04/20/23 15:16 11/05/23 09:28 Height 5 ft 8 in 5 ft 8 in Weight: 166 lb 4 oz BMI 25.2 BP 124/60 H Position Sitting Pulse 93 Temp 98.7 F Temp Source Temporal Pulse Oximetry (%) 95 Oxygen Delivery Method room air Intake Visit Reasons: CONGESTION/SHORT OF BREATH/COUGH Accompanied by: Self Allergies No Known Allergies Allergy (Verified 11/05/23 09:32) Medications ???Medication ???Instructions ???Recorded ???Confirmed ???Type aspirin 81 mg tablet,delayed 81 mg PO DAILY 08/06/18 11/05/23 History release (Adult Aspirin Regimen) acetaminophen 500 mg capsule 500 mg PO Q6H PRN pain #30 caps 10/02/18 11/05/23 Rx albuterol sulfate 2.5 mg/3 mL 2.5 mg (3 mL) inhalation Q4H PRN 06/15/20 11/05/23 Rx (0.083 %) solution for nebulization Sob /Or Wheezing #180 mL omeprazole 20 mg capsule,delayed 20 mg PO DAILY #90 caps 03/03/21 11/05/23 Rx release multivitamin (One Daily 1 tab PO DAILY 06/23/21 11/05/23 History Multivitamin tablet) guaifenesin 400 mg tablet 400 mg PO Q4H PRN cough, 03/01/22 11/05/23 Rx congestion #60 tabs diazepam 2 mg tablet 2 mg PO TID PRN PRN Vertigo #10 03/12/22 11/05/23 Rx TABLETS trazodone 50 mg tablet See Rx Instructions .Route 11/08/22 11/05/23 Rx .COMPLEX #90 tabs guaifenesin 1,200 mg tablet, 1,200 mg PO Q12H #90 tabs 12/07/22 11/05/23 Rx extended release 12 hr montelukast 10 mg tablet 10 mg PO QPM #90 tabs 03/06/23 11/05/23 Rx albuterol sulfate 90 mcg/actuation 2 puff inhalation Q6H PRN 03/15/23 11/05/23 Rx aerosol inhaler (ProAir HFA) shortness of breath or wheezing #18 grams alfuzosin 10 mg tablet,extended 10 mg PO DAILY #90 tabs 03/15/23 11/05/23 Rx release 24 hr amlodipine 10 mg tablet 10 mg PO DAILY #90 tabs 03/15/23 11/05/23 Rx Disability Placard #1 ea 03/16/23 11/05/23 Rx atorvastatin 40 mg tablet 40 mg PO DAILY #90 tabs 03/22/23 11/05/23 Rx ferrous sulfate 325 mg (65 mg 325 mg PO DAILY #90 tabs 04/04/23 11/05/23 Rx iron) tablet furosemide 40 mg tablet 40 mg PO DAILY #90 tabs 04/04/23 11/05/23 Rx isosorbide mononitrate 30 mg 15 mg (1/2 x 30 mg) PO DAILY #45 07/06/23 11/05/23 Rx tablet,extended release 24 hr tabs cetirizine 10 mg capsule 10 mg PO HS #90 caps 08/08/23 11/05/23 Rx pramipexole 0.25 mg tablet 0.25 mg PO QHS #90 tabs 08/08/23 11/05/23 Rx fluticasone fur. 200 mcg-umeclid 1 inh inhalation DAILY #60 ea 09/10/23 11/05/23 Rx 62.5 mcg-vilant 25 mcg inhalat.powder (Trelegy Ellipta) dutasteride 0.5 mg capsule 0.5 mg PO DAILY #90 caps 09/15/23 11/05/23 Rx gabapentin 400 mg capsule 400 mg PO TID #90 caps 09/15/23 11/05/23 Rx amoxicillin 875 mg-potassium 1 tab PO BID #20 tabs 11/05/23 11/05/23 Rx clavulanate 125 mg tablet Have you fallen in the past year?: No [facility] Medical History Acute bronchitis, unspecified Emphysema with both acute and chronic bronchitis Restless leg syndrome Encounter for preventative adult health care examination Abdominal pain Flu vaccine need Insomnia COVID-19 vaccine series completed GERD (gastroesophageal reflux disease) Abdominal pain Stage 3 severe COPD by GOLD classification Shingles (herpes zoster) polyneuropathy neck and back pain Asthma Shoulder pain Shortness of breath Arthritis Depression with anxiety Benign prostatic hyperplasia Coronary artery disease Colon enlargement Atherosclerosis of coronary artery of [place] heart without angina pectoris Essential hypertension Cardiac tamponade (07/29/18) Abnormal stress test ( 06/30/18) Hyperlipidemia History of depression History of anxiety History of restless legs syndrome Emphysema of lung History of erectile dysfunction Surgical History History of open reduction and internal fixation (ORIF) procedure S/P pericardiocentesis (08/01/18) Presence of stent in coronary artery (08/01/18) History of ankle surgery ( 2008) History of colonoscopy Family History Mother Cancer leukemia Father Heart disease Myocardial infarction Sister COPD (chronic obstructive pulmonary disease) Brother COPD (chronic obstructive pulmonary disease) Cancer liver Social History Smoking Status: Former smoker quit date: 05/18/01 Tobacco: How many years used: 40 alcohol intake: former details: 2000 substan (more content not included)... [facility] Absolute lymphocyte countOrd ered By: Sharon Osorio on 04-20-2023 Lymphocytes Auto (Unsp spec) [#/Vol] 1.98 10*3/uL 0.83-4.51 [facility] Basophil percentageOrdered B y: Sharon Osorio on 04-20-2023 Basophils/100 WBC (Bld) 0.5 % 0-1 [facility] Bilirubin [Mass/Vol] 0.70 mg/dL 0.20-1.00 [facility] Comment on above: For patients on eltr ombopag therapy, use of Dimension [place] TBIL is not recommended. Chloride [Moles/Vol] 105 mmol/L 98-107 [facility] Cholesterol [Mass/Vol] 152 mg/dL <200 [facility] Comment on above: <200 mg/dL Desirable 200-240 mg/dL Borderline >240 mg/dL High Risk Eosinophils/100 WBC (Bld) 1.9 % 0-5 [facility] Glucose [Mass/Vol] 132 mg/dL 74-106 [facility] Comment on above: Fasting Glucose resu lt greater than or equal to 126 mg/dL suggests DIABETES MELLITUS per A.D.A. criteria. Neutrophils (Bld) [#/Vol] 7.5 10*3/uL 2.0-7.7 [facility] Neutrophils/100 WBC (Bld) 69.3 % 47-70 [facility] Potassium [Moles/Vol] 3.6 mmol/L 3.5-5.1 [facility] [place] [facility] Protein [Mass/Vol] 7.9 g/dL 6.4-8.2 [facility] Sodium [Moles/Vol] 138 mmol/L 136-145 [facility] Triglyceride [Mass/Vol] 122 mg/dL <199 [facility] Comment on above: The drugs N-Acetylcy steine and Metamizole may falsely depress this assay.Serum Triglycerides Reference Interval Normal <150 mg/dL Borderline high 150 - 199 mg/dL High 200 - 499 mg/dL Very High > or = 500 mg/dL WBC (Bld) [#/Vol] 10.8 10*3/uL 4.4-11.0 [facility] Blood erythrocytes count (nu mber/volume)Ordered By: Sharon Osorio on 04-20-2023 RBC (Bld) [#/Vol] 5.39 10*6/uL 4.6-6.2 [facility] Blood hemoglobin measurement (mass/volume)Ordered By: Sharon Osorio on 04-20-2023 Hemoglobin (Bld) [Mass/Vol] 16.2 g/dL 13.0-16.5 [facility] Blood lymphocytes/100 leukoc ytesOrdered By: Sharon Osorio on 04-20-2023 Lymphocytes/100 WBC (Bld) 18.4 % 19-41 [facility] Blood monocytes/100 leukocyt esOrdered By: Sharon Osorio on 04-20-2023 Monocytes/100 WBC (Bld) 9.3 % 0-10 [facility] Blood platelet mean volumeOr dered By: Sharon Osorio on 04-20-2023 Platelet mean volume (Bld) [Entitic vol] 10.3 fL 6.2-12.0 [facility] Determination of erythrocyte mean corpuscular volume (MCV)Ordered By: Sharon Osorio on 04-20-2023 MCV (RBC) [Entitic vol] 88.9 fL 80-94 [facility] Hematocrit Auto (Bld) [Volum e fraction]Ordered By: Sharon Osorio on 04-20-2023 Hematocrit (Bld) [Volume fraction] 47.9 % 40-54 [facility] Laboratory - Chemistry and C hemistry - challengeOrdered By: Sharon Osorio on 04-20-2023 ALP [Catalytic activity/Vol] 75 U/L 45-117 [facility] ALT [Catalytic activity/Vol] 42 U/L 16-61 [facility] CO2 [Moles/Vol] 25.0 mmol/L 21.0-32.0 [facility] Globulin (S) [Mass/Vol] 3.8 g/dL 2.2-4.2 [facility] Urea nitrogen/Creatinine [Mass ratio] 13.6 mg/mg 10-20 [facility] Laboratory - Hematology and Cell countsOrdered By: Jozefcullomcody Osorio on 04-20-2023 Erythrocyte distribution width (RBC) [Entitic vol] 41.0 fL 35.1-43.9 [facility] Erythrocyte distribution width (RBC) [Ratio] 12.7 % 11.6-14.6 [facility] Immature granulocytes/100 WBC (Bld) 0.600 % 0.0-0.9 [facility] Comment on above: IG% - Immature Granu locytes (promyelocytes, myelocytes and metamyelocytes) > 1% indicates that a LEFT SHIFT is Present. MCH (RBC) [Entitic mass] 30.1 pg 27.0-32.0 [facility] Nucleated RBC/100 WBC (Bld) [Ratio] 0 % 0-5 [facility] MCHC Auto (RBC) [Mass/Vol]Or dered By: Sharon Osorio on 04-20-2023 MCHC (RBC) [Mass/Vol] 33.8 g/dL 32-36 [facility] No Panel InformationOrdered By: Sharon Osorio on 04-20-2023 Estimated GFR (MDRD) Amer 78 mL/min >60 [facility] Comment on above: GFR Calc Estimated GFR (MDRD) Non-Af Amer 64 mL/min >60 [facility] Comment on above: Non- GFR Calc Prostate Specific Antigen Screen 1.61 ng/mL 0.00-4.00 [facility] Comment on above: This test was perfor med using the TPSA assay method for [employer] chemistry system. Values obtained with differentassay methods cannot be used interchangably.When changing PSA assays in the course of monitoring apatient, additional sequential testing should be carriedout to confirm baseline values. Thyroid Stimulating Hormone (TSH) 3.15 uIU/mL 0.358-3.74 [facility] Platelets bldOrdered By: Iain Osorio on 04-20-2023 Platelets (Bld) [#/Vol] 284 10*3/uL 150-450 [facility] Serum or plasma albumin joseph urement (mass/volume)Ordered By: Sharon Osorio on 04-20-2023 Albumin [Mass/Vol] 4.1 g/dL 3.2-5.0 [facility] Serum or plasma albumin/glob ulin mass ratioOrdered By: Sharon Osorio on 04-20-2023 Albumin/Globulin [Mass ratio] 1.1 {ratio} 0.9-2.4 [facility] Serum or plasma calcium joseph urement (mass/volume)Ordered By: Sharon Osorio on 04-20-2023 Calcium [Mass/Vol] 8.9 mg/dL 8.5-10.1 [facility] Serum or plasma cholesterol in HDL measurement (mass/volume)Ordered By: Sharon Osorio on 04-20-2023 Cholesterol in HDL [Mass/Vol] 53 mg/dL >40 [facility] Comment on above: The drugs N-Acetylcy steine and Metamizole may falsely depress this assay. Reference Range HDL <40 mg/dL Low HDL Cholesterol HDL >or= 60 mg/dL High HDL Cholesterol Serum or plasma cholesterol in VLDL measurement (mass/volume)Ordered By: Sharon Osorio on 04-20-2023 Cholesterol in VLDL [Mass/Vol] 24 mg/dL 5-40 [facility] Serum or plasma creatinine m easurement (mass/volume)Ordered By: Sharon Osorio on 04-20-2023 Creatinine [Mass/Vol] 1.18 mg/dL 0.70-1.30 [facility] Comment on above: The validity of the calculated GFR & GFRAA in patients over 70 years has not been determined. Clinical correlation is essential. Serum or plasma low density lipoprotein (LDL) cholesterol measurement (mass/volume)Ordered By: [facility] on 04-20-2023 Cholesterol in LDL [Mass/Vol] 75 mg/dL 0-130 [facility] Serum or plasma urea nitroge n measurement (mass/volume)Ordered By: Sharon Osorio on 04-20-2023 Urea nitrogen [Mass/Vol] 16 mg/dL 7-18 [facility] Thin prep Papanicolaou smear with manual screeningOrdered By: [facility] on 04-20-2023 Thin prep Papanicolaou smear with manual screening 31 U/L 15-37 [facility] Thin prep Papanicolaou smear with manual screening 8 5-15 [facility] Gram stain for investigation of transfusion reactionOrdered By: Sharon Hester on 12-12-2022 Microscopic observation Gram stain Nom (Unsp spec) [facility] Absolute lymphocyte counton 03-12-2022 Lymphocytes Auto (Unsp spec) [#/Vol] 1.05 10*3/uL 0.83-4.51 [facility] Work Phone: [phone] Basophil percentageon 2021 Basophils/100 WBC (Bld) 0.5 % 0-1 [facility] Work Phone: Chloride [Moles/Vol] 112 mmol/L 98-107 [facility] Work Phone: Eosinophils/100 WBC (Bld) 1.8 % 0-5 [facility] Work Phone: Glucose [Mass/Vol] 115 mg/dL 74-106 [facility] Work Phone: Comment on above: Fasting Glucose resu lt from 100 to 125 mg/dL suggests IMPAIRED HOMEOSTASIS per A.D.A. criteria. Neutrophils (Bld) [#/Vol] 5.8 10*3/uL 2.0-7.7 [facility] Work Phone: Neutrophils/100 WBC (Bld) 73.2 % 47-70 [facility] Work Phone: [phone] Potassium [Moles/Vol] 4.2 mmol/L 3.5-5.1 [facility] Work Phone: [phone] Sodium [Moles/Vol] 141 mmol/L 136-145 [facility] Work Phone: WBC (Bld) [#/Vol] 7.9 10*3/uL 4.4-11.0 [facility] Work Phone: Blood erythrocytes count (nu mber/volume)on 03-12-2022 RBC (Bld) [#/Vol] 4.68 10*6/uL 4.6-6.2 [facility] Work Phone: Blood hemoglobin measurement (mass/volume)on 03-12-2022 Hemoglobin (Bld) [Mass/Vol] 14.4 g/dL 13.0-16.5 [facility] Work Phone: Blood lymphocytes/100 leukoc yteson 03-12-2022 Lymphocytes/100 WBC (Bld) 13.4 % 19-41 [facility] Work Phone: Blood monocytes/100 leukocyt eson 03-12-2022 Monocytes/100 WBC (Bld) 10.6 % 0-10 [facility] Work Phone: Blood platelet mean volumeon 03-12-2022 Platelet mean volume (Bld) [Entitic vol] 9.9 fL 6.2-12.0 [facility] Work Phone: [phone] Determination of erythrocyte mean corpuscular volume (MCV)on 03-12-2022 MCV (RBC) [Entitic vol] 92.1 fL 80-94 [facility] Work Phone: Hematocrit Auto (Bld) [Volum e fraction]on 03-12-2022 Hematocrit (Bld) [Volume fraction] 43.1 % 40-54 [facility] Work Phone: INR in Blood by Coagulation assayon 03-12-2022 INR Coag (Bld) [Relative time] 1.1 {INR} [facility] Work Phone: Laboratory - Chemistry and C hemistry - challengeon 03-12-2022 CO2 [Moles/Vol] 23.0 mmol/L 21.0-32.0 [facility] Work Phone: Urea nitrogen/Creatinine [Mass ratio] 28.2 mg/mg 10-20 [facility] Work Phone: Laboratory - Coagulationon 1 05-12-2021 aPTT Coag (Bld) [Time] 29.0 s 24.1-36.2 [facility] Work Phone: PT Coag (PPP) [Time] 14.1 s 11.7-14.9 [facility] Work Phone: Laboratory - Hematology and Cell countson 03-12-2022 Erythrocyte distribution width (RBC) [Entitic vol] 46.4 fL 35.1-43.9 [facility] Work Phone: Erythrocyte distribution width (RBC) [Ratio] 13.7 % 11.6-14.6 [facility] Work Phone: Immature granulocytes/100 WBC (Bld) 0.500 % 0.0-0.9 [facility] Work Phone: Comment on above: IG% - Immature Granu locytes (promyelocytes, myelocytes and metamyelocytes) > 1% indicates that a LEFT SHIFT is Present. MCH (RBC) [Entitic mass] 30.8 pg 27.0-32.0 [facility] Work Phone: Nucleated RBC/100 WBC (Bld) [Ratio] 0 % 0-5 [facility] Work Phone: MCHC Auto (RBC) [Mass/Vol]on 03-12-2022 MCHC (RBC) [Mass/Vol] 33.4 g/dL 32-36 [facility] Work Phone: No Panel Informationon 03-12 Estimated Creatinine Clearance Calc 69.18 ml/min [facility] Work Phone: Estimated GFR (MDRD) Amer 103 mL/min >60 [facility] Work Phone: Comment on above: GFR Calc Estimated GFR (MDRD) Non-Af Amer 86 mL/min >60 [facility] Work Phone: Comment on above: Non- GFR Calc Troponin I High Sensitivity 12 pg/mL 3.0-78.0 [facility] Work Phone: Comment on above: Please Note: New Jennifer t Units and Gender Specific Reference Ranges. For more information see Policy Stat Procedure [place] High Sensitivity Troponin (TNIH) and attachments. Platelets bldon 03-12-2022 Platelets (Bld) [#/Vol] 224 10*3/uL 150-450 [facility] Work Phone: Serum or plasma calcium joseph urement (mass/volume)on 03-12-2022 Calcium [Mass/Vol] 9.3 mg/dL 8.5-10.1 [facility] Work Phone: Serum or plasma creatinine m easurement (mass/volume)on 03-12-2022 Creatinine [Mass/Vol] 0.92 mg/dL 0.70-1.30 [facility] Work Phone: Comment on above: The validity of the calculated GFR & GFRAA in patients over 70 years has not been determined. Clinical correlation is essential. Serum or plasma urea nitroge n measurement (mass/volume)on 03-12-2022 Urea nitrogen [Mass/Vol] 26 mg/dL 7-18 [facility] Work Phone: Thin prep Papanicolaou smear with manual screeningon 03-12-2022 Thin prep Papanicolaou smear with manual screening 6 5-15 [facility] Work Phone: Absolute lymphocyte counton 03-01-2022 Lymphocytes Auto (Unsp spec) [#/Vol] 1.15 10*3/uL 0.83-4.51 [facility] Work Phone: Basophil percentageon 2021 Basophils/100 WBC (Bld) 0.5 % 0-1 [facility] Work Phone: Bilirubin [Mass/Vol] 0.70 mg/dL 0.20-1.00 [facility] Work Phone: Comment on above: For patients on eltr ombopag therapy, use of Dimension [place] TBIL is not recommended. Chloride [Moles/Vol] 105 mmol/L 98-107 [facility] Work Phone: Cholesterol [Mass/Vol] 144 mg/dL <200 [facility] Work Phone: Comment on above: <200 mg/dL Desirable 200-240 mg/dL Borderline >240 mg/dL High Risk Eosinophils/100 WBC (Bld) 2.1 % 0-5 [facility] Work Phone: Glucose [Mass/Vol] 106 mg/dL 74-106 [facility] Work Phone: Comment on above: Fasting Glucose resu lt from 100 to 125 mg/dL suggests IMPAIRED HOMEOSTASIS per A.D.A. criteria. Neutrophils (Bld) [#/Vol] 6.4 10*3/uL 2.0-7.7 [facility] Work Phone: Neutrophils/100 WBC (Bld) 72.2 % 47-70 [facility] Work Phone: Potassium [Moles/Vol] 3.9 mmol/L 3.5-5.1 [facility] Work Phone: Protein [Mass/Vol] 8.0 g/dL 6.4-8.2 [facility] Work Phone: Sodium [Moles/Vol] 137 mmol/L 136-145 [facility] Work Phone: Triglyceride [Mass/Vol] 115 mg/dL <199 [facility] Work Phone: Comment on above: The drugs N-Acetylcy steine and Metamizole may falsely depress this assay.Serum Triglycerides Reference Interval Normal <150 mg/dL Borderline high 150 - 199 mg/dL High 200 - 499 mg/dL Very High > or = 500 mg/dL WBC (Bld) [#/Vol] 8.9 10*3/uL 4.4-11.0 [facility] Work Phone: Blood erythrocytes count (nu mber/volume)on 03-01-2022 RBC (Bld) [#/Vol] 5.10 10*6/uL 4.6-6.2 [facility] Work Phone: Blood hemoglobin measurement (mass/volume)on 03-01-2022 Hemoglobin (Bld) [Mass/Vol] 15.0 g/dL 13.0-16.5 [facility] Work Phone: Blood lymphocytes/100 leukoc yteson 03-01-2022 Lymphocytes/100 WBC (Bld) 13.0 % 19-41 [facility] Work Phone: Blood monocytes/100 leukocyt eson 03-01-2022 Monocytes/100 WBC (Bld) 11.5 % 0-10 [facility] Work Phone: Blood platelet mean volumeon 03-01-2022 Platelet mean volume (Bld) [Entitic vol] 10.3 fL 6.2-12.0 [facility] Work Phone: Determination of erythrocyte mean corpuscular volume (MCV)on 03-01-2022 MCV (RBC) [Entitic vol] 89.2 fL 80-94 [facility] Work Phone: Hematocrit Auto (Bld) [Volum e fraction]on 03-01-2022 Hematocrit (Bld) [Volume fraction] 45.5 % 40-54 [facility] Work Phone: Iron measurement (mass/mass) on 03-01-2022 Iron (Unsp spec) [Mass/Mass] 88 ug/dL 65-175 [facility] Work Phone: Laboratory - Chemistry and C hemistry - challengeon 03-01-2022 ALP [Catalytic activity/Vol] 86 U/L 45-117 [facility] Work Phone: ALT [Catalytic activity/Vol] 54 U/L 16-61 [facility] Work Phone: CO2 [Moles/Vol] 23.0 mmol/L 21.0-32.0 [facility] Work Phone: Globulin (S) [Mass/Vol] 4.1 g/dL 2.2-4.2 [facility] Work Phone: Urea nitrogen/Creatinine [Mass ratio] 18.1 mg/mg 10-20 [facility] Work Phone: Laboratory - Hematology and Cell countson 03-01-2022 Erythrocyte distribution width (RBC) [Entitic vol] 44.2 fL 35.1-43.9 [facility] Work Phone: Erythrocyte distribution width (RBC) [Ratio] 13.5 % 11.6-14.6 [facility] Work Phone: Immature granulocytes/100 WBC (Bld) 0.700 % 0.0-0.9 [facility] Work Phone: Comment on above: IG% - Immature Granu locytes (promyelocytes, myelocytes and metamyelocytes) > 1% indicates that a LEFT SHIFT is Present. MCH (RBC) [Entitic mass] 29.4 pg 27.0-32.0 [facility] Work Phone: Nucleated RBC/100 WBC (Bld) [Ratio] 0 % 0-5 [facility] Work Phone: MCHC Auto (RBC) [Mass/Vol]on 03-01-2022 MCHC (RBC) [Mass/Vol] 33.0 g/dL 32-36 [facility] Work Phone: No Panel Informationon 03-01 Estimated GFR (MDRD) Amer 109 mL/min >60 [facility] Work Phone: Comment on above: GFR Calc Estimated GFR (MDRD) Non-Af Amer 90 mL/min >60 [facility] Work Phone: Comment on above: Non- GFR Calc Prostate Specific Antigen Screen 1.19 ng/mL 0.00-4.00 [facility] Work Phone: Comment on above: This test was perfor med using the TPSA assay method for the[employer] chemistry system. Values obtained with differentassay methods cannot be used interchangably.When changing PSA assays in the course of monitoring apatient, additional sequential testing should be carriedout to confirm baseline values. Thyroid Stimulating Hormone (TSH) 3.85 uIU/mL 0.358-3.74 [facility] Work Phone: Total Iron Binding Capacity 306 ug/dL 250-450 [facility] Work Phone: Platelets bldon 03-01-2022 Platelets (Bld) [#/Vol] 293 10*3/uL 150-450 [facility] Work Phone: Serum or plasma albumin joseph urement (mass/volume)on 03-01-2022 Albumin [Mass/Vol] 3.9 g/dL 3.2-5.0 [facility] Work Phone: Serum or plasma albumin/glob ulin mass ratioon 03-01-2022 Albumin/Globulin [Mass ratio] 1.0 {ratio} 0.9-2.4 [facility] Work Phone: Serum or plasma calcium joseph urement (mass/volume)on 03-01-2022 Calcium [Mass/Vol] 9.2 mg/dL 8.5-10.1 [facility] Work Phone: Serum or plasma cholesterol in HDL measurement (mass/volume)on 03-01-2022 Cholesterol in HDL [Mass/Vol] 65 mg/dL >40 [facility] Work Phone: Comment on above: The drugs N-Acetylcy steine and Metamizole may falsely depress this assay. Reference Range HDL <40 mg/dL Low HDL Cholesterol HDL >or= 60 mg/dL High HDL Cholesterol Serum or plasma cholesterol in VLDL measurement (mass/volume)on 03-01-2022 Cholesterol in VLDL [Mass/Vol] 23 mg/dL 5-40 [facility] Work Phone: Serum or plasma creatinine m easurement (mass/volume)on 03-01-2022 Creatinine [Mass/Vol] 0.88 mg/dL 0.70-1.30 [facility] Work Phone: Comment on above: The validity of the calculated GFR & GFRAA in patients over 70 years has not been determined. Clinical correlation is essential. Serum or plasma ferritin samina surement (mass/volume)on 03-01-2022 Ferritin [Mass/Vol] 161 ng/mL 26-388 [facility] Work Phone: Serum or plasma iron saturat ion measurement (mass fraction)on 03-01-2022 Iron saturation [Mass fraction] 28.8 % 15.0-55.0 [facility] Work Phone: Serum or plasma low density lipoprotein (LDL) cholesterol measurement (mass/volume)on 03-01-2022 Cholesterol in LDL [Mass/Vol] 56 mg/dL 0-130 [facility] Work Phone: Serum or plasma urea nitroge n measurement (mass/volume)on 03-01-2022 Urea nitrogen [Mass/Vol] 16 mg/dL 7-18 [facility] Work Phone: Thin prep Papanicolaou smear with manual screeningon 03-01-2022 Thin prep Papanicolaou smear with manual screening 43 U/L 15-37 [facility] Work Phone: Thin prep Papanicolaou smear with manual screening 9 5-15 [facility] Work Phone: No Panel Informationon 12-24 POC SARS CoV-2 Antigen Negative [facility] Work Phone: No Panel Informationon 12-20 POC SARS CoV-2 Antigen Positive [facility] Work Phone: Basophil percentageon 2021 Bilirubin [Mass/Vol] 0.80 mg/dL 0.20-1.00 [facility] Work Phone: Comment on above: For patients on eltr ombopag therapy, use of Dimension [place] TBIL is not recommended. Cholesterol [Mass/Vol] 125 mg/dL <200 [facility] Work Phone: Comment on above: <200 mg/dL Desirable 200-240 mg/dL Borderline >240 mg/dL High Risk Protein [Mass/Vol] 7.9 g/dL 6.4-8.2 [facility] Work Phone: Triglyceride [Mass/Vol] 47 mg/dL [facility] Work Phone: Comment on above: The drugs N-Acetylcy steine and Metamizole may falsely depress this assay.Serum Triglycerides Reference Interval Normal <150 mg/dL Borderline high 150 - 199 mg/dL High 200 - 499 mg/dL Very High > or = 500 mg/dL Direct bilirubinon 2 Bilirubin.direct [Mass/Vol] 0.21 mg/dL 0.00-0.30 [facility] Work Phone: Laboratory - Chemistry and C hemistry - challengeon 07-05-2021 ALP [Catalytic activity/Vol] 87 U/L 45-117 [facility] Work Phone: ALT [Catalytic activity/Vol] 56 U/L 16-61 [facility] Work Phone: Globulin (S) [Mass/Vol] 3.8 g/dL 2.2-4.2 [facility] Work Phone: Serum or plasma albumin joseph urement (mass/volume)on 07-05-2021 Albumin [Mass/Vol] 4.1 g/dL 3.2-5.0 [facility] Work Phone: Serum or plasma cholesterol in HDL measurement (mass/volume)on 07-05-2021 Cholesterol in HDL [Mass/Vol] 58 mg/dL [facility] Work Phone: Comment on above: The drugs N-Acetylcy steine and Metamizole may falsely depress this assay. Reference Range HDL <40 mg/dL Low HDL Cholesterol HDL >or= 60 mg/dL High HDL Cholesterol Serum or plasma cholesterol in VLDL measurement (mass/volume)on 07-05-2021 Cholesterol in VLDL [Mass/Vol] 9 mg/dL 5-40 [facility] Work Phone: Serum or plasma low density lipoprotein (LDL) cholesterol measurement (mass/volume)on 07-05-2021 Cholesterol in LDL [Mass/Vol] 58 mg/dL 0-130 [facility] Work Phone: Thin prep Papanicolaou smear with manual screeningon 07-05-2021 Thin prep Papanicolaou smear with manual screening 43 U/L 15-37 [facility] Work Phone: Basic Panelon 08-04-2018 Creatinine mass conc 0.85 mg/dL Normal 0.67-1.17 [facility] Comment on above: Performed By: #### C BC1 #### [facility] [address] [place], [place] [address] Anion gap molar conc 13 mmol/L Normal 8-16 [facility] Comment on above: Performed By: #### C BC1 #### [facility] [address] [place], [place] [address] CO2 molar conc 22 mmol/L Normal 21-32 [facility] Comment on above: Performed By: #### C BC1 #### [facility] [address] [place], [place] [address] Glucose mass conc 102 mg/dL High 70-99 [facility] Comment on above: Performed By: #### C BC1 #### [facility] [address] [place], [place] [address] Urea nitrogen mass conc 17 mg/dL Normal 7-18 [facility] Comment on above: Performed By: #### C BC1 #### [facility] [address] [place], [place] [address] Calcium mass conc 8.9 mg/dL Normal 8.5-10.1 [facility] Comment on above: Performed By: #### C BC1 #### [facility] [address] [place], [place] [address] Chloride molar conc 103 mmol/L Normal 98-107 [facility] Comment on above: Performed By: #### C BC1 #### [facility] [address] [place], [place] [address] Potassium molar conc 3.9 mmol/L Normal 3.5-5.1 [facility] Comment on above: Performed By: #### C BC1 #### [facility] [address] [place] [address] Sodium molar conc 134 mmol/L Low 136-145 [facility] Comment on above: Performed By: #### C BC1 #### [facility] [address] [place] [address] Hemogramon 08-04-2018 Erythrocyte distribution width Ratio (RBC) 13.7 % Normal 11.6-14.4 [facility] Comment on above: Performed By: #### C BC1 #### [facility] [address] [place] [address] Hematocrit Volume Fraction (Bld) 37.2 % Low 40.1-51.0 [facility] Comment on above: Performed By: #### C BC1 #### [facility] [address] [place] [address] Hemoglobin mass conc (Bld) 12.5 g/dL Low 13.7-17.5 [facility] Comment on above: Performed By: #### C BC1 #### [facility] [address] [place] [address] MCH Entitic mass (RBC) 29.8 pg Normal 25.7-32.2 [facility] Comment on above: Performed By: #### C BC1 #### [facility] [address] [place] [address] MCHC mass conc (RBC) 33.6 % Normal 32.3-36.5 [facility] Comment on above: Performed By: #### C BC1 #### [facility] [address] [place] [address] MCV Entitic volume (RBC) 88.8 fL Normal 83.2-95.6 [facility] Comment on above: Performed By: #### C BC1 #### [facility] [address] [place] [address] Platelet mean volume Entitic volume (Bld) 10.1 fL Normal 8.7-12.0 [facility] Comment on above: Performed By: #### C BC1 #### [facility] [address] [place] [address] Platelets #/vol (Bld) 246 thou/cmm Normal 141-365 [facility] Comment on above: Performed By: #### C BC1 #### [facility] [address] [place], [place] [address] RBC #/vol (Bld) 4.19 mil/cmm Low 4.63-6.08 [facility] Comment on above: Performed By: #### C BC1 #### [facility] [address] [place] [address] RDW SD 44.9 fl Normal 36.1-45.8 [facility] Comment on above: Performed By: #### C BC1 #### [facility] [address] [place] [address] WBC #/vol (Bld) 8.24 thou/cmm Normal 4.23-9.07 [facility] Comment on above: Performed By: #### C BC1 #### [facility] [address] [place] [address] MDRD GFRon 08-04-2018 GFR/1.73 sq M predicted among non-blacks MDRD vol rate/area (S/P/Bld) mL/min/{1.73_m2} Normal >60mL/min/1 .73m2 [facility] Comment on above: Result Comment: If t he patient is , multiply the result by 1.210. Performed By: #### G FR #### [place] [address] PROGRESSon 08-04-2018 Protein mass conc HNO ID: [id number] Author: Sundeep Weldon Service: Cardiovascular Medicine Author Type: Resident Type: Progress Notes Filed: 08/04/2018 8:48 AM Note Text: -- Attestation signed by Jia Bang at 08/04/2018 12:23 PM Attending Note: Apple findings confirmed. Patient examined. Discussed with the resident and the patient. Plan as outlined. INTERVAL HISTORY: Pericardial drain removed. Patient is feeling well. No chest pain or pressure. He denies shortness of breath. Physical exam Gen.: Patient sitting resting comfortable no prior distress HEENT: Carotid upstrokes brisk without bruits. No JVD Pulmonary: Lungs are clear no Rales wheezes rhonchi Cardiovascular: Per nursing staff there was no air cardiol drainage output overnight. Pericardial drain removed. There is no pericardial friction rub noted. No significant murmurs rubs or gallops. Extremities: Warm well perfused no cyanosis clubbing or edema. Assessment and plan 68-year-old gentleman with coronary artery disease recent coronary intervention of the right coronary artery complicated by perforation and covered stent placement. Patient had a pericardial drain placed for cardiac. Drain removed today without incidence. Coronary artery disease: Patient is on appropriate medical therapy. He will be maintained on dual antiplatelet therapy for the course of one year. He has a follow-up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 Person, Place , Time and Situation Functional Status: Independent Does Patient Currently Receive Any Community Services or Home Care? None Equipment Prior to Admission: nebulizer prn Has the Patient Been in a Longterm Facility in the Past 30 days? 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 No Caregiver Needed Patient's transition needs and plan for meeting these needs: Does the patient have an acute stroke diagnosis, or has the patient had a stroke during this admission? No Medication Adherence: I am convinced of the importance of my prescription medication: Agree completely - 0 I worry that my prescription medication will do more harm than good to me Disagree mostly - 0 I feel financially burdened by my hju-te-pfwooe expenses for my prescription medication: Disagree completely - 0 Patient is categorized as low risk < 2 Are you interested in bedside delivery of your medications? Yes Food Concerns: In the Last Month, Have You had Trouble Getting Food? No trouble getting food During the Last Month, Have You Worried Whether Your Food Would Run Out Before You Had Enough Money to Buy More? No Is the Patient Psychosocially Complex? No ASSESSMENT AND PLAN: Medical Needs: None Psychosocial Needs: None FREEDOM OF CHOICE EXPLAINED: N/A POTENTIAL TRANSITION PLANS Home pharm conc to check new brilinta Met with patient and denies homegoing needs Has pericardial drain and anticipates removal later today. Will follow for addt needs. SIGNATURE: Mariama Alves RN PATIENT NAME: Anita Guzman DATE: August 02, 2018 TIME: 11:55 AM PAGER/CONTACT #: [phone] Normal [facility] Hemogramon 08-02-2018 Erythrocyte distribution width Ratio (RBC) 13.9 % Normal 11.6-14.4 [facility] Comment on above: Performed By: #### C BC1 #### [place] [address] Hematocrit Volume Fraction (Bld) 37.9 % Low 40.1-51.0 [facility] Comment on above: Performed By: #### C BC1 #### [place] [address] Hemoglobin mass conc (Bld) 12.6 g/dL Low 13.7-17.5 [facility] Comment on above: Performed By: #### C BC1 #### [place] [address] MCH Entitic mass (RBC) 29.8 pg Normal 25.7-32.2 [facility] Comment on above: Performed By: #### C BC1 #### [place] [address] MCHC mass conc (RBC) 33.2 % Normal 32.3-36.5 [facility] Comment on above: Performed By: #### C BC1 #### [place] [address] MCV Entitic volume (RBC) 89.6 fL Normal 83.2-95.6 [facility] Comment on above: Performed By: #### C BC1 #### [facility] [address] [place] [address] Platelet mean volume Entitic volume (Bld) 9.9 fL Normal 8.7-12.0 [facility] Comment on above: Performed By: #### C BC1 #### [facility] [address] [place] [address] Platelets #/vol (Bld) 266 thou/cmm Normal 141-365 [facility] Comment on above: Performed By: #### C BC1 #### [facility] [address] [place] [address] RBC #/vol (Bld) 4.23 mil/cmm Low 4.63-6.08 [facility] Comment on above: Performed By: #### C BC1 #### [facility] [address] [place] [address] RDW SD 45.3 fl Normal 36.1-45.8 [facility] Comment on above: Performed By: #### C BC1 #### [facility] [address] [place] [address] WBC #/vol (Bld) 14.62 thou/cmm High 4.23-9.07 [facility] Comment on above: Performed By: #### C BC1 #### [facility] [address] [place] [address] Lipid Profileon 08-02-2018 Cholesterol in HDL mass conc 64 mg/dL Normal >40 [facility] Comment on above: Performed By: #### C BC1 #### [facility] [address] [place] [address] Cholesterol in LDL mass conc 59 mg/dL Normal [facility] Comment on above: Result Comment: No C AD and with fewer than 2 CAD risk factors <160 mg/dL No CAD but with 2 or more CAD risk factors <130 mg/dL Definite CAD or other atherosclerotic disease <100 mg/dL Performed By: #### C BC1 #### [facility] [address] [place] [address] Cholesterol in LDL/Cholesterol in HDL mass ratio 0.9 Low 1.1-4.8 [facility] Comment on above: Result Comment: LDL, VLDL,LDL/HDL, Invalid if Triglyceride >400 Performed By: #### C BC1 #### [place] [address] Cholesterol.total/Cho lesterol in HDL mass ratio 2.0 {ratio} Low 2.1-7.3 [facility] Comment on above: Performed By: #### C BC1 #### [facility] [address] [place] [address] Cholesterol in VLDL mass conc 8 mg/dL Normal <50 Desired [facility] Comment on above: Performed By: #### C BC1 #### [facility] [address] [place] [address] Triglyceride mass conc 39 mg/dL Normal 0-149 [facility] Comment on above: Result Comment: < 20 0 Desirable Result invalid if not a fasting specimen. Performed By: #### C BC1 #### [place] [address] Cholesterol mass conc 131 mg/dL Normal 0-199 [facility] Comment on above: Result Comment: <200 Desirable 200-240 Borderline >240 High Performed By: #### C BC1 #### [place] [address] NUTRITIONon 08-02-2018 NUTRITION HNO ID: [id number] Author: Louisa Baez Service: Nutrition Therapy Author Type: Registered Dietitian Type: Nutrition Filed: 08/02/2018 11:39 AM Note Text: NUTRITION THERAPY PATIENT EDUCATION SERVICE DATE: 08/02/2018 SERVICE TIME: 10:35 TOPIC: Cardiac Rehab: Therapeutic Lifestyle Changes (TLC) Diagnosis: ADULT: Coronary Artery Disease READINESS TO LEARN Cognitive Ability: Alert and oriented Motivation to Learn: Eager Family Support: Unable to assess - Family not present Instruction Provided to: Patient Patient Learns Best by: Unable to Assess Factors Affecting Learning: None Physical Limitations Affecting Learning: None LEARNING RESPONSE Patient / Family Response: Verbalizes understanding of Mediterranean Diet Guidelines Method of Instruction: Individual instruction Written instruction - handouts Verbal instruction Instructional Aids Used: Mediterranean Diet Guidelines Supplemental Material Provided to Patient: None Follow-Up Plan: Follow up with cardiology Referral (Recommendation): Nutrition - Outpatient MNT Billing: Initial Assess/15 min 2 units SIGNATURE: Louisa Baez RD,LD PATIENT NAME: Anita Guzman DATE: August 02, 2018 TIME: 11:38 AM PAGER: [phone] Normal [facility] PLAN OF CAREon 08-02-2018 PLAN OF CARE HNO ID: [id number] Author: Luba Mendoza (Pharmacist) Service: ? Author Type: Pharmacist Type: Plan of Care Filed: 08/02/2018 12:37 PM Note Text: MEDICATION RECONCILIATION Patient Name:.Anita Guzman : 1950 Reconciliation: Yes All CUSTOMER OPERATIONS MANAGER medications addressed by LIP Additional comments: N/A Allergies: ALLERGIES No Known Allergies Preferred Pharmacy: [facility] ([phone]) Current CUSTOMER OPERATIONS MANAGER Medications: Prior to Admission medications as of 08/02/18 1235 Medication Sig Last Dose Taking aspirin, enteric coated (ASPIRIN, ENTERIC COATED) 81 mg EC tablet Take 81 mg by mouth once daily. Yes albuterol HFA (VENTOLIN HFA) 90 mcg/actuation inhaler Inhale 2 Puffs as instructed every 4 hours as needed. 08/01/2018 at Unknown time Yes tiZANidine (ZANAFLEX) 4 mg tablet Take 1 tablet by mouth every 6 hours as needed. 07/31/2018 at Unknown time Yes pravastatin (PRAVACHOL) 40 mg tablet Take 1 tablet by mouth daily at bedtime. 07/31/2018 at Unknown time Yes alfuzosin SR (UROXATRAL) 10 mg 24 hr tablet Take 1 tablet by mouth once daily. 07/31/2018 at Unknown time Yes citalopram (CELEXA) 20 mg tablet Take 1 tablet by mouth once daily. 07/31/2018 at Unknown time Yes gabapentin (NEURONTIN) 300 mg capsule Take 1 capsule by mouth three times daily for 30 days. 07/31/2018 at Unknown time Yes awxleguhhzu-khouxilue-juwn nter (TRELEGY ELLIPTA) 100-62.5-25 mcg dsdv Inhale 1 Puff as instructed once daily as needed. 08/01/2018 at Unknown time Yes pramipexole (MIRAPEX) 0.25 mg tablet Take 1 tablet by mouth daily at bedtime. 07/31/2018 at Unknown time Yes STARTED ON THIS ADMISSION Tadalafil (CIALIS) 10 mg tablet Take 1 tablet by mouth as needed (30 minutes prior intercourse.). LUBA MENDOZA, PHARMACIST August 02, 2018 12:36 PM Normal [facility] PLAN OF CARE HNO ID: [id number] Author: Luba Mendoza (Pharmacist) Service: ? Author Type: Pharmacist Type: Plan of Care Filed: 08/02/2018 12:36 PM Note Text: MEDICATION HISTORY Patient Name:Rob Guzman : 1950 Source of history:Spoke with patient; appears reliable. Also reviewed fill history avaliable on [email or web address] Medication Nonadherence Identified: No barriers noted. The above information represents the best possible medication history: Yes Additional comments: Verified all medications with patient. Patient fills medications at [facility] in [place], [place] Added: Aspirin 81 mg daily - verified with patient (note that aspirin 325 mg was just a one time dose; will remove from list) Allergies: ALLERGIES No Known Allergies Preferred Pharmacy: [facility] in [place], [place] ([phone]) Current CUSTOMER OPERATIONS MANAGER Medications: Prior to Admission medications as of 08/01/18 1004 Medication Sig Last Dose Taking aspirin, enteric coated (ASPIRIN, ENTERIC COATED) 81 mg EC tablet Take 81 mg by mouth once daily. Yes albuterol HFA (VENTOLIN HFA) 90 mcg/actuation inhaler Inhale 2 Puffs as instructed every 4 hours as needed. 08/01/2018 at Unknown time Yes tiZANidine (ZANAFLEX) 4 mg tablet Take 1 tablet by mouth every 6 hours as needed. 07/31/2018 at Unknown time Yes pravastatin (PRAVACHOL) 40 mg tablet Take 1 tablet by mouth daily at bedtime. 07/31/2018 at Unknown time Yes alfuzosin SR (UROXATRAL) 10 mg 24 hr tablet Take 1 tablet by mouth once daily. 07/31/2018 at Unknown time Yes citalopram (CELEXA) 20 mg tablet Take 1 tablet by mouth once daily. 07/31/2018 at Unknown time Yes gabapentin (NEURONTIN) 300 mg capsule Take 1 capsule by mouth three times daily for 30 days. 07/31/2018 at Unknown time Yes sgrbxuzqoph-lefxfvyjx-cqmo nter (TRELEGY ELLIPTA) 100-62.5-25 mcg dsdv Inhale 1 Puff as instructed once daily as needed. 08/01/2018 at Unknown time Yes pramipexole (MIRAPEX) 0.25 mg tablet Take 1 tablet by mouth daily at bedtime. 07/31/2018 at Unknown time Yes tSTARTED ON THIS ADMISSION Tadalafil (CIALIS) 10 mg tablet Take 1 tablet by mouth as needed (30 minutes prior intercourse.). Francisca Abraham (Desktop Architect) August 02, 2018 10:09 AM Normal [facility] PROGRESSon 08-02-2018 Protein mass conc HNO ID: [id number] Author: Martin Garcia (Res) MD Pamela Service: Cardiovascular Medicine Author Type: Resident Type: Progress Notes Filed: 08/02/2018 10:19 AM Note Text: -- Attestation signed by Seferino Peters at 08/03/2018 2:42 PM Patient personally seen and examined. Case discussed with resident and team. I agree with documentation. Seferino Peters MD, FACP, FACC, [facility] Staff Cardiovascular Medicine [facility] Section of Interventional Cardiology at [facility] [address], [address] [place], [place] [address] P: [phone] F: [phone] -- INTERNAL MEDICINE PROGRESS NOTE SERVICE DATE: 08/02/2018 SERVICE TIME: 19:58 AM ADMITTING PHYSICIAN: Jia Victoria Subjective Brief HPI: This is a 68 year old male with h/o COPD, prior alcohol and polysubstance abuse was admitted yesterday regarding an abnormal stress test done as OP.?He initially presented to [facility] on 06/30/2018 with complaints of typical anginal symptoms associated with shortness of breath with symptoms of pneumonia as well. He underwent PCI of RCA with JAKOB stent placement, however, the procedure was complicated by vessel perforation leading to pericardial effusion. A pericardial drain was placed at this time with 450cc drainage and the perforation was sealed off. A bedside echo demonstrated minimal pericardial effusion with no tamponade physiology. Interval history: Overnight, patient reports mid-sternal sharp pleuretic chest pain, relieved by dilaudid. This AM, patient reports good control of sharp chest pain, and able to take deeper breath. No chest pressure of shortness of breath. Pericardial drain of 40cc since placement, no drainage overnight. Current Facility-Administered Medications Medication Dose Route Frequency - tiotropium 2.5 mcg/actuation 2 Puff (SPIRIVA RESPIMAT) 2 Puff INHALATION DAILY - fluticasone-vilanterol 100-25 mcg/dose 1 Inhalation (BREO ELLIPTA) 1 Inhalation INHALATION DAILY - perflutren lipid microspheres 1.1 mg/mL 1.3 mL injection (DEFINITY) 1.3 mL INTRAVENOUS DIRECTED PRN - nitroglycerin sublingual 0.4 mg tab(s) (NITROQUICK) 0.4 mg SUBLINGUAL q 5 MIN PRN - atropine 0.4 mg injection 0.4 mg INTRAVENOUS PRN(NO DISPENSE) - ticagrelor 90 mg tab(s) (BRILINTA) 90 mg ORAL BID - aspirin, enteric coated 81 mg tab(s) 81 mg ORAL DAILY - atorvastatin 40 mg tab(s) (LIPITOR) 40 mg ORAL AT BEDTIME - acetaminophen 650 mg tab(s) (TYLENOL) 650 mg ORAL q 4 H PRN - amLODIPine 10 mg tab(s) (NORVASC) 10 mg ORAL DAILY - hydrALAZINE 10 mg injection (APRESOLINE) 10 mg INTRAVENOUS q 6 H PRN - albuterol HFA 90 mcg/actuation 2 Puff (PROVENTIL HFA, VENTOLIN HFA) 2 Puff INHALATION q 4 H PRN - NaCl 0.9% 2-10 mL 2-10 mL INTRAVENOUS q 12 H - atropine 0.4 mg injection 0.4 mg INTRAVENOUS PRN(NO DISPENSE) - HYDROmorphone 1 mg injection (DILAUDID) 1 mg INTRAVENOUS q 4 H PRN - pramipexole 0.25 mg tab(s) (MIRAPEX) 0.25 mg ORAL AT BEDTIME - diazePAM 5 mg tab(s) (VALIUM) 5 mg ORAL PRN Objective PHYSICAL EXAM: Patient Vitals for the past 24 hrs: BP Temp Temp src Pulse Resp SpO2 Height Weight 08/02/18 0712 151/83 ? ? 90 22 96 % ? ? 08/02/18 0700 155/69 36.4 ?C (97.5 ?F) ? 92 24 96 % ? ? 08/02/18 0600 138/66 ? ? 89 19 96 % ? ? 08/02/18 0526 ? 71.5 kg (157 lb 10.1 oz) 08/02/18 0500 140/87 ? ? 92 23 94 % ? ? 08/02/18 0400 162/66 ? ? 90 24 96 % ? ? 08/02/18 0300 145/70 ? ? 87 23 97 % ? ? 08/02/18 0200 158/72 ? ? 92 19 91 % ? ? 08/02/18 0100 155/68 ? ? 88 21 95 % ? ? 08/02/18 0000 166/77 ? ? 99 19 94 % ? ? 08/01/18 2300 160/70 ? ? 92 20 94 % ? ? 08/01/18 2200 171/72 ? ? 92 25 94 % ? ? 08/01/18 2100 156/74 ? ? 94 21 96 % ? ? 08/01/18 2000 156/72 ? ? 97 20 94 % ? ? 08/01/18 1900 124/78 (!) 38.6 ?C (101.5 ?F) Temporal 96 22 95 % ? ? 08/01/18 1800 162/78 ? ? 99 20 94 % ? ? 08/01/18 1700 156/72 ? ? 106 19 93 % ? ? 08/01/18 1630 158/96 ? ? 93 16 93 % ? ? 08/01/18 1600 162/68 ? ? 89 20 98 % ? ? 08/01/18 1530 169/80 37.5 ?C (99.5 ?F) ? 86 15 97 % ? ? 08/01/18 1500 161/77 ? ? 81 18 97 % ? ? 08/01/18 1430 149/109 ? ? 87 21 98 % ? ? 08/01/18 1400 161/64 ? ? 91 21 98 % ? ? 08/01/18 1330 161/67 ? ? 88 21 96 % ? ? 08/01/18 1302 189/84 ? 08/01/18 1300 189/84 ? ? 82 16 98 % ? ? 08/01/18 1245 170/73 ? ? 81 22 96 % ? ? 08/01/18 1230 ? ? ? 81 15 98 % ? ? 08/01/18 1215 158/99 ? ? 82 19 98 % ? ? 08/01/18 1200 172/78 ? ? 72 21 99 % ? ? 08/01/18 1145 154/79 ? ? 71 18 99 % ? ? 08/01/18 1130 178/83 ? ? 77 23 99 % ? ? 08/01/18 1115 177/88 ? ? 72 17 99 % ? ? 08/01/18 1100 177/86 36.6 ?C (97.9 ?F) ? 72 18 99 % ? ? 08/01/18 1045 185/92 ? ? 72 16 98 % ? ? 08/01/18 1030 177/85 ? ? 69 16 98 % ? ? 08/01/18 1025 179/86 ? ? 69 14 99 % ? ? 08/01/18 1020 182/82 ? ? 66 13 98 % ? ? 08/01/18 1010 ? 172.7 cm (5' 8) 70.5 kg (155 lb 6.8 oz) 08/01/18 1005 180/77 ? ? 67 16 95 % ? ? 08/01/18 1000 180/77 ? ? 65 19 94 % ? ? Body mass index is 23.97 kg/m?. GENERAL: Alert, no distress, cooperative SKIN: Skin color, texture, turgor normal. No rashes or lesions. NECK: No jugulovenous distention, Supple LUNGS: Lungs clear to auscultation. Good diaphragmatic excursion. CARDIAC: Normal S1 and S2; no rubs, murmurs, or gallops ABDOMEN: Abdomen soft, non-tender, BS normal, No masses or organomegaly EXTREMITIES: Extremities normal, no deformities, edema, clubbing or skin discoloration. Good capillary refill. NEURO: Alert, oriented X 3 PULSES: 2+ radial, 2+ carotid DATA: Diagnostic tests reviewed for today's visit: Most recent labs and imaging results. CBC, Coags, BMP, Mg, Phos Recent Labs 08/02/18 0519 08/01/18 1130 07/30/18 1345 WBC 14.62* 9.17* 6.22 HB 12.6* 12.3* 12.5* HCT 37.9* 38.2* 38.4* PLT 266 223 244 NA 135* 140 -- K 4.1 4.1 -- CHLOR 105 108* -- CO2 25 25 -- BUN 15 17 -- CREAT 0.99 0.85 -- GLUC 125* 102* -- CA 8.7 8.3* -- MG -- 2.0 -- Cardiac Enzymes Results for RICKY GUZMAN ( ) as of 08/02/2018 10:03 Ref. Range 08/01/2018 17:20 08/01/2018 23:16 08/02/2018 05:19 Troponin I Latest Ref Range: 0.015 - 0.045 ng/ml 0.675 (H) 2.910 (HH) 4.260 (HH) Assessment/Plan 1. Acute coronary syndrome with symptoms of Unstable angina - Patient presented for coronary intervention after he had an abnormal stress test in LCx territory - EKG showing NSR with no ST-T wave changes - LHC done today and underwent PCI of RCA with JAKOB stent. 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 - lipid profile showed total cholesterol of 131, goal <100; LDL 73. - Pending complete TTE to evaluate cardiac function and pericardial fluid resolution. - SL nitroglycerin as needed for chest pain. - Currently taking ASA 81mg, high dose atorvastatin 40 mg and ticagrelor 90mg BID - Start low dose BB within 24 hours if HR and BP are stable with underlying pericardial effusion - Cardiac diet, discontinue IVF. - Cardiac rehabilitation ? 2. Pericardial effusion 2/2 RCA perforation - S/p pericardial drain with 450cc of bloody pericardial fluid. - Drain additional 40cc in past 24 hr. - hemoglobin 12.6 this AM. - Will pull drain if repeat ECHO showed minimal pericardial fluid. - Hold off BB in lieu of effusion - Will discontinue colchicine. ? 3. Hypertension - BP controlled this MA - Continue amlodipine 10mg for now - May need to add ACEI if EF<40% - On hydralazine IV PRN for short term control ? 4. COPD- On LABA, LAMA, ICS and KARY - Currently on RA - Restart home medications 5. Leukocytosis - WBC of 14.62 this AM, increased from 9.17 yesterday. - Likely reactive from pericardial effusion. Medication and Non-Pharmacologic VTE Prophylaxis/Anticoagulants Anticoagulant AND Antiplatelet Medications (From admission, onward) Start Dose Route Frequency Ordered Stop 08/02/18 0900 aspirin, enteric coated 81 mg tab(s) 81 mg ORAL DAILY 08/01/18 1016 -- 08/01/18 2100 ticagrelor 90 mg tab(s) (BRILINTA) 90 mg ORAL 2 TIMES DAILY 08/01/18 1016 -- 08/01/18 0000 ticagrelor (BRILINTA) 90 mg tablet 90 mg ORAL 2 TIMES DAILY 08/01/18 1054 -- 08/01/18 1130 vte pharmacologic prophylaxis contraindicated (ut,oh) 08/01/18 1130 pneumatic compression stockings ([place], [place]) VTE Prophylaxis: VTE prophylaxis appropriate SIGNATURE: Martin Garcia Cha, MD PATIENT NAME: Anita Guzman DATE: August 02, 2018 TIME: 9:59 AM PAGER/CONTACT #: Pager: [phone] Normal [facility] Troponin Ion 08-02-2018 Troponin I.cardiac mass conc 4.160 ng/mL Critically high 0.015-0.045 [facility] Comment on above: Performed By: #### C BC1 #### [address] [address] Troponin I.cardiac mass conc 4.480 ng/mL Critically high 0.015-0.045 [facility] Comment on above: Performed By: #### C BC1 #### [address] [address] Troponin I.cardiac mass conc 4.260 ng/mL Critically high 0.015-0.045 [facility] Comment on above: Performed By: #### T ROP #### [facility] [address] [place] [id number] Troponin I.cardiac mass conc 2.910 ng/mL Critically high 0.015-0.045 [facility] Comment on above: Performed By: #### T ROP #### [facility] [address] [place], [place] [address] ACT Arterial Panel (i-STAT)o n 08-01-2018 Kaolin ACT ( i-STAT) 164 sec High 74-137 [facility] Comment on above: Performed By: #### A CTIA #### [facility] [address] [place] [address] BRIEF OP NOTon 08-01-2018 BRIEF OP NOT HNO ID: [id number] Author: Seferino Peters Service: Interventional Cardiology Author Type: Physician Type: Brief Op Note Filed: 08/01/2018 5:28 PM Note Text: Brief Note Anita Guzman [id number] 1950 08/01/2018 Michael Arroyo MD Note: Coronary angiography indicated for abnormal stress test demonstrated minimal luminal irregularities in the left coronary artery system. There were tandem de chaparro stenoses in the mid segment of the right coronary artery. A decision was made to perform percutaneous coronary intervention in the right coronary artery. Therapeutic anticoagulation was achieved with administration of intravenous unfractionated heparin to target an activated clotting time > 250 seconds. The right coronary artery ostium was engaged with a Dean Right 6-Greenlandic guiding catheter that provided fair support. The lesion was crossed successfully without difficulty using a Vitaliy Blue wire, and direct stented with a 5.0 mm x 32 mm everolimus-eluting pass[place]dy chromium stent. The stent was post-dilated to 5.0 mm using a non-compliant balloon at high atmospheric pressure. The final angiographic image following the second post-dilation balloon inflation demonstrated Go Type II coronary artery perforation. Prolonged balloon inflation was performed with the 5.0 mm non-compliant balloon to seal the perforation. Failure of the prolonged balloon inflation to seal the perforation was followed by expeditious deployment of a polytetrafluoroethylene covered stent (4.0 mm x 19 mm), post-dilated to 5.0 mm at high atmospheric pressure. Final angiography demonstrated no evidence of residual stenosis or angiographically apparent dissection or coronary artery perforation. An emergent pericardiocentesis was performed to relieve cardiac tamponade with drainage of 450 cc of blood. The pericardial drain was left in situ and sutured in place. The patient left the cardiac catheterization laboratory in a hemodynamically stable condition. A loading-dose of ticagrelor (180 mg) was administered in the cardiac catheterization laboratory at the conclusion of the case. Access: right radial artery. Seferino Peters MD, FACP, FACC, [facility] Staff Cardiovascular Medicine [facility] Section of Interventional Cardiology at [facility] [address], [address] [place] [address] P: [phone] F: [phone] [email or web address] Normal [facility] BRIEF OP NOT HNO ID: [id number] Author: Jia Victoria Service: Cardiovascular Medicine Author Type: Physician Type: Brief Op Note Filed: 08/01/2018 8:28 AM Note Text: Cath-Indication: Abn stress test Findings LVEF 65% L Main, LAD, LCx luminals RCA large vessel mid 75 mid [address] Proceed with [address] stent[address] Peters to perform Jia Victoria MD Pager [phone] Normal [facility] Basic Panelon 08-01-2018 Creatinine mass conc 0.85 mg/dL Normal 0.67-1.17 [facility] Comment on above: Performed By: #### P 8 #### [facility] [address] [place] [address] Urea nitrogen mass conc 17 mg/dL Normal 7-18 [facility] Comment on above: Performed By: #### P 8 #### [facility] [address] [place] [address] Anion gap molar conc 11 mmol/L Normal 8-16 [facility] Comment on above: Performed By: #### P 8 #### [facility] [address] [place] [address] Calcium mass conc 8.3 mg/dL Low 8.5-10.1 [facility] Comment on above: Performed By: #### P 8 #### [place] [address] CO2 molar conc 25 mmol/L Normal 21-32 [facility] Comment on above: Performed By: #### P 8 #### [facility] [address] [place], [place] [address] Glucose mass conc 102 mg/dL High 70-99 [facility] Comment on above: Performed By: #### P 8 #### [facility] [address] [place], [place] [address] Chloride molar conc 108 mmol/L High 98-107 [facility] Comment on above: Performed By: #### P 8 #### [facility] [address] [place], [place] [address] Potassium molar conc 4.1 mmol/L Normal 3.5-5.1 [facility] Comment on above: Performed By: #### P 8 #### [facility] [address] [place], [place] [address] Sodium molar conc 140 mmol/L Normal 136-145 [facility] Comment on above: Performed By: #### P 8 #### [facility] [address] [place], [place] [address] HISTORY PHYSICALon 9 HISTORY PHYSICAL HNO ID: [id number] Author: Alma Pérez Service: Cardiovascular Medicine Author Type: Resident Type: HANDP Filed: 08/01/2018 11:17 AM Note Text: -- Attestation signed by Seferino Peters at 08/01/2018 2:20 PM Patient personally seen and examined. Case discussed with resident and team. I agree with documentation. Seferino Peters MD, FACP, FACC, [facility] Staff Cardiovascular Medicine [facility] Section of Interventional Cardiology at [facility] [address], [address] [place], [place] [address] P: [phone] F: [email or web address] -- HISTORY AND PHYSICAL EXAMINATION SERVICE DATE: 08/01/2018 SERVICE TIME: 10:30AM PRIMARY CARE PHYSICIAN: Michael Arroyo MD Subjective CHIEF COMPLAINT: Abnormal stress test HPI: This is a 68 year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 11:11-0400 Heart rate 75 /min Dr. Sharon Osorio Work Phone: [facility] Work Phone: 12-03-2021 11:11-0400 Respiratory rate 16 /min Dr. Sharon Osorio Work Phone: [facility] Work Phone: 12-03-2021 11:11-0400 SaO2% (BldA) [Mass fraction] 92 % Dr. Sharon Osorio Work Phone: [facility] Work Phone: 12-03-2021 11:11-0400 Systolic blood pressure 117 mm[Hg] Dr. Sharon Osorio Work Phone: [facility] Work Phone: 06-23-2021 08:42-0500 Body height 172.[address] Sharon Osorio Work Phone: [facility] Work Phone: 06-23-2021 08:42-0500 Body weight 75.[address] Sharon Osorio Work Phone: [facility] Work Phone: 06-23-2021 08:42-0500 Diastolic blood pressure 80 mm[Hg] Dr. Sharon Osorio Work Phone: [facility] Work Phone: 06-23-2021 08:42-0500 Heart rate 93 /min Dr. Sharon Osorio Work Phone: [facility] Work Phone: 06-23-2021 08:42-0500 Respiratory rate 18 /min Dr. Sharon Osorio Work Phone: [facility] Work Phone: 06-23-2021 08:42-0500 SaO2% (BldA) [Mass fraction] 99 % Dr. Sharon Osorio Work Phone: [facility] Work Phone: 06-23-2021 08:42-0500 Systolic blood pressure 131 mm[Hg] Dr. Sharon Osorio Work Phone: [facility] Work Phone: 06-17-2020 12:06-0500 Body mass index (BMI) [Ratio] 25.9 kg/m2 Dr. Sharon Osorio Work Phone: [facility] Work Phone: Encounters Encounter Date Encounter Type Care Provider Facility Start: 10-10-2024 ambulatory [facility] Start: 10-08-2024 ambulatory [facility] Start: 10-02-2024 End: 10-02-2024 Patient encounter procedure Sharon Hester NP-C -[facility] Work Phone: Start: 10-02-2024 End: 10-02-[address] Sharon Osorio MD Work Phone: [facility] Work Phone: Start: 06-05-2024 End: 06-05-[address] Weston Mccarthy MD -[facility] Start: 06-05-2024 End: 06-05-2024 ambulatory Weston Mccarthy Facility:[facility] Start: 06-05-2024 End: 06-05-2024 Patient encounter procedure Sergio Ramirez [employer]FILL [employer]LECTION OPERATOR-C -[facility] Work Phone: Start: 06-05-2024 End: 06-05-2024 ambulatory Sergio Ramirez Facility:[facility] Start: 05-16-[address] Sharon Osorio MD Work Phone: [facility] Start: 05-16-2024 End: 05-16-2024 ambulatory roslyn Osorio Facility:[facility] Start: 05-16-2024 End: 05-16-2024 ambulatory roslyn Osorio Facility:[facility] Start: 01-07-2024 End: 01-07-2024 ambulatory Bala Hussein NP Facility:[facility] Start: 12-25-2023 End: 12-25-2023 ambulatory Colin MYRICK Facility:[facility] Start: 12-25-2023 End: 12-25-2023 [facility] Start: 11-13-2023 End: 11-[facility] Start: 11-13-2023 End: 11-13-2023 ambulatory [facility] Start: 11-05-2023 End: 11-05-2023 ambulatory Bala Hawkins Jovita [employer]ANDFILL G[employer] COLLECTION OPERATOR Facility:[facility] Start: 10-12-2023 ambulatory Bala H Roof [employer]AND[employer]LL G[employer] COLLECTION OPERATOR Facility :[facility] Start: 04-20-2023 End: 04-20-[address] Sharon Osorio Work Phone: [facility] Work Phone: Start: 04-20-2023 End: 04-20-[address] Sharon Osorio Work Phone: [facility] Work Phone: Start: 04-12-2023 End: 04-12-[address] Sharon Osorio Work Phone: [facility] Work Phone: Start: 01-16-2023 End: 01-16-[address] Sharon Osorio Work Phone: [facility] Work Phone: Start: 12-12-2022 End: 12-12-[address] Sharon Osorio Work Phone: [facility] Work Phone: Start: 12-12-2022 End: 12-12-[address] Sharon Osorio Work Phone: [facility] Work Phone: Start: 12-07-2022 End: 12-07-[address] [facility] Work Phone: Start: 12-01-2022 End: 12-01-[address] Sharon Osorio Work Phone: [facility] Work Phone: Start: 12-01-2022 End: 12-01-[address] Sharon Osorio Work Phone: [facility] Work Phone: Start: 09-07-2022 End: 09-07-[address] Sharon Osorio Work Phone: [facility] Work Phone: Start: 03-12-2022 End: 03-12-2022 Emergency department patient visit Dr. Sharon Osorio Work Phone: [facility] Start: 03-03-2022 End: 03-03-[address] [facility] Start: 03-01-2022 End: 03-01-[address] Sharon Osorio Work Phone: [facility] Work Phone: Start: 03-01-2022 End: 03-01-[address] Sharon Oosrio Work Phone: [facility], [place] Start: 03-01-[address] Sharon Osorio Work Phone: [facility] Start: 03-01-2022 End: 03-01-2022 Encounter for general adult medical examination without abnormal findings Dr. Sharon Osorio Work Phone: [facility] Start: 03-01-2022 End: 03-01-[address] Sharon Osorio Work Phone: [facility] Start: 12-24-2021 End: 12-24-[address] Sharon Osorio Work Phone: [facility] Start: 12-20-2021 End: 12-20-[address] Sharon Osorio Work Phone: [facility] Start: 12-03-2021 End: 12-03-[address] Sharon Osorio [facility] Start: 11-25-2021 End: 11-25-2021 Patient encounter procedure [facility] Start: 08-11-2021 ambulatory Alice Cheema RN Work Phone: [employer] Comment on above: Community Monitoring Outreach ([facility] ) Start: 07-05-2021 End: 07-05-[address] Sharon Osorio Work Phone: [facility] Start: 06-23-2021 End: 06-23-[address] Sharon Osorio Work Phone: [facility] Start: 03-31-2021 End: 03-31-[address] Sharon Osorio Work Phone: [facility] Start: 08-01-2018 End: 08-04-2018 Evaluation and management of inpatient JIA VICTORIA Facility:[facility] Procedures Date Procedure Procedure Detail Performing Clinician Start: 06-05-2024 X-ray of chest, PA a nd lateral views Dr. Sharon Osorio MD Work Phone: Start: 12-12-2022 Investigation of tra nsfusion reaction Dr. Sharon Osorio Work Phone: Start: 12-01-[address] Mallory Osorio Work Phone: Start: 03-12-2022 CT angiography of ch est with contrast Dr. Sharon Osorio Work Phone: Start: 03-12-2022 Plain chest X-ray Dr. Karen Osorio Work Phone: Start: 03-12-2022 CT angiography of he ad and neck Dr. Sharon Osorio Work Phone: Start: 11-25-2021 CT of chest Start: 03-31-2021 Plain chest X-ray Dr. Karen Osorio Work Phone: Start: 08-01-2018 Electrocardiogram Start: 11-12-2015 Colonoscopy Alice Cheema RN Work Phone: Plan of Treatment Date Care Activity Detail Author Start: 08-03-2023 LIPID SCREEN LIPID SCREEN [facility] Start: 12-12-2022 Respiratory microbial culture Respiratory [facility] Start: 12-12-2022 Bacteria identified in Sputum by Culture [facility] Start: 03-12-2022 Oxygen therapy [facility] Work Phone: Start: 03-12-2022 [facility] Work Phone: Start: 12-16-2021 Influenza vaccination INFLUENZA (Season Ended) [facility] Start: 08-04-2021 DIABETES SCREEN DIABETES SCREEN [facility] Start: 04-17-2021 ADVANCE DIRECTIVE DISCUSSION ADVANCE DIRECTIVE DISCUSSION [facility] Start: 07-04-2019 ANNUAL PCP TEAM CHRONIC DISEASE VISIT ANNUAL PCP TEAM CHRONIC DISEASE VISIT [facility] Start: 11-11-2018 Colonoscopy COLONOSCOPY [facility] Start: 11-11-2018 COLORECTAL CANCER SCREENING COLORECTAL CANCER SCREENING [facility] Start: 03-18-2001 Urine microalbumin profile DTAP,TDAP,TD (1 - Tdap) [facility] Start: 1999 SHINGRIX VACCINE (1 of 2) SHINGRIX VACCINE (1 of 2) [facility] Start: 1994 COLOGUARD (FIT-DNA) COLOGUARD (FIT-DNA) [facility] Start: [address] COLONOGRAPHY [facility] Start: 1994 FECAL OCCULT BLOOD FECAL OCCULT BLOOD [facility] Start: 1994 SIGMOIDOSCOPY SIGMOIDOSCOPY [facility] Start: 1967 BP CONTROLLED (<130/80) BP CONTROLLED (<130/80) [facility] Start: 1954 COVID-19 VACCINE (1) COVID-19 VACCINE (1) [facility] Acid fast bacilli culture [facility] Work Phone: Bacteria identified in Sputum by Culture [facility] Work Phone: CT Chest [facility] Work Phone: CT Chest [facility] CT Chest [facility] Measurement of respiratory function [facility] Patient referral [facility] Work Phone: Walking distance 6 minutes [facility] Immunizations Immunization Date Immunization Notes Care Provider Fa andre 01-16-2023 influenza, injectabl e, quadrivalent, preservative free Dr. Sharon Osorio Work Phone: [facility] 03-01-2022 influenza, injectabl e, quadrivalent, preservative free Dr. Sharon Osorio Work Phone: [facility] 03-01-2022 influenza, seasonal, injectable Dr. Sharon Osorio Work Phone: [facility] 12-08-[address] Sharon Osorio Work Phone: [facility] 02-03-2020 Fluad Quad (65yr up)(PF) 60 mcg (15 mcg x 4)/0.5mL IM syringe (flu vac Dr. Sharon Osorio Work Phone: [facility] Work Phone: 02-03-2020 influenza, injectabl e, quadrivalent, preservative free Dr. Sharon Osorio Work Phone: [facility] 02-03-2020 influenza, seasonal, injectable Dr. Sharon Osorio Work Phone: [facility] 01-18-2019 pneumococcal conjuga te vaccine, [address] Sharon Osorio Work Phone: [facility] 01-18-2019 pneumococcal vaccine , unspecified formulation Dr. Sharon Osorio Work Phone: [facility] Work Phone: 01-18-2019 Fluad 2018- 65yr up(PF)45 mcg(15 mcgx3)/0.5 mL intramuscular syringe (flu vac Dr. Sharon Osorio Work Phone: [facility] Work Phone: 12-27-2017 influenza, high dose seasonal, preservative-free Alice Cheema RN Work Phone: [facility] 02-23-2016 influenza, high dose seasonal, preservative-free Alice Cheema RN Work Phone: [facility] 02-23-2016 pneumococcal conjuga te vaccine, 13 valent Alice Cheema RN Work Phone: [facility] 06-25-2014 pneumococcal polysaccharide vaccine, 23 valent Alice Cheema RN Work Phone: [facility] 06-19-2002 pneumococcal polysaccharide vaccine, 23 valent Alice Cheema RN Work Phone: [facility] Work Phone: 03-17-2001 tetanus and diphther ia toxoids, adsorbed, preservative free, for adult use (2 Lf of tetanus toxoid and 2 Lf of diphtheria toxoid) Alice Cheema RN Work Phone: [facility] Work Phone: Payers Date Payer Category Payer Self-pay [id number] 2023 Medicaid [id number] 2023 Unknown [id number] 2018 Medicare HUMANA MEDICARE HUMANA MEDICARE PPO [id number] 2018-Present [phone] [facility] [id number] [place] [address] PPO [id number] 1950 Unknown [id number] Medicare [id number] Medicare [id number] Medicare [id number] Unknown [id number] Unknown [id number] Unknown [id number] Unknown [id number] Unknown [id number] Unknown [id number] Unknown [id number] Unknown [id number] Unknown [id number] Unknown [id number] Unknown [id number] Unknown [id number] Unknown [id number] Unknown [id number] Unknown [id number] Social History Date Type Detail Facility Start: 06-23-2021 End: 04-20-2023 Tobacco smoking status ILIS Unknown if ever smoked [facility] Start: 11-11-2019 Non-smoker [facility] Start: 1950 Sex Assigned At Male W [facility] Start: 06-05-2024 Tobacco smoking stat us ILIS Ex-smoker [facility] Work Phone: Start: 01-12-1962 End: 06-10-2001 History of tobacco use Current smoker [facility] Work Phone: Start: 01-12-1962 End: 06-10-2001 History of tobacco use Cigarette Smoker [facility] Work Phone: Start: 07-27-2018 Alcohol intake Current non-dr marketing traffic manager of alcohol (finding) [facility] Start: 01-12-2018 Tobacco Comment Parents smoked in childhood home. [facility] Start: 1950 Sex Assigned At Not on file [facility] Mental Status Date Assessment Result Facility 03-12-2022 Cognitive function Level Of Cons ciousness Awake;Alert;Appropriate;Follow s Commands [facility] Work Phone: Clinical Notes 08-01-2018 to 06-05-2024 Note Date & Type Note Facility 06-05-2024 Evaluation note Diagnosis Onset Date Resolution COPD exacerbation chronic 2024 8:06am Shortness of breath chronic October 02, 2024 11:03am [facility] Work Phone: [phone]) [phone] NoteHNO ID: [id number] Author: Alice Cheema RN Service: ? Author Type: Registered Nurse Type: Progress Notes Filed: 08/11/2021 2:12 PM Note Text: [facility] Enrollment Provider Action/FYI: No PCP Patient referred by: [facility] Eddie Contact made with patient: Patient not outreached at this time. Closing: Patient does not meet criteria. PCC to reassess patient in a month. [facility] History of Present illness Narrative* Alice Cheema RN - 08/11/2021 2:11 PM EDT [facility] Enrollment Provider Action/FYI: No PCP Patient referred by: [facility] Eddie Contact made with patient: Patient not outreached at this time. Closing: Patient does not meet criteria. PCC to reassess patient in a month. END OUTREACH [facility] NotePatient Outreach ([facility]) ANITA GUZMAN ([id number]) 1950 M Date Time Provider Department 08/11/21 ALICE CHEEMA During your visit today, we recorded the following information about you: Alice Cheema RN 08/11/2021 2:12 PM Signed [facility] Enrollment Provider Action/FYI: No PCP Patient referred by: [facility] Eddie Contact made with patient: Patient not outreached at this time. Closing: Patient does not meet criteria. PCC to reassess patient in a month. END OUTREACH Allergies As of Date: 08/11/2021 (No Known Allergies) Date Reviewed: 08/01/2018 Reviewed by: Cinda KnappRn) JAINCE Rush - Fully Assessed Reason for Visit: Community Monitoring Outreach [Other] Cmt: [facility] Prescriptions as of 08/11/2021 - TRELEGY ELLIPTA [...] [I31.3] 08/01/2018 08/04/2018 Coronary artery disease of [place] artery with s*08/01/2018 08/04/2018 HTN (hypertension) [I10] 08/01/2018 COPD (chronic obstructive pulmonary disease) (H*08/08/2005 Encounter Status:Closed by ALICE CHEEMA on 08/11/21[facility] NoteHNO ID: [id number] Author: Teo De La Cruz RN Service: ? Author Type: Registered Nurse Type: Progress Notes Filed: 08/26/2020 1:42 PM Note Text: [facility] Enrollment Provider Action/FYI: NO PCP Patient referred by: PCC/PCP referral Contact made with patient: Patient not outreached at this time. Closing: Patient does not meet criteria. PCC to reassess patient in a month. [facility] NotePatient Outreach ([facility]) ANITA GUZMAN ([id number]) 1950 Date Time Provider Department 08/26/20 TEO DE LA CRUZ During your visit today, we recorded the following information about you: Teo De La Cruz RN 08/26/2020 1:42 PM Signed [facility] Enrollment Provider Action/FYI: NO PCP Patient referred [...] [I31.3] 08/01/2018 08/04/2018 Coronary artery disease of [place] artery with s*08/01/2018 08/04/2018 HTN (hypertension) [I10] 08/01/2018 COPD (chronic obstructive pulmonary disease) (H*08/08/2005 Encounter Status:Closed by TEO DE LA CRUZ on 08/26/20[facility] 08-01-2018 History of Past illness Narrative* Problem Noted Date Resolved Date Angina pectoris, crescendo 08/01/2018 04/20 /2019 S/P drug eluting coronary stent placement 201808/04/2018 Pericardial effusion 08/01/2018 08/04/2018 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 08/01/2018 08/04/2018 documented as of this encounter (statuses as of 08/11/2021) [facility] N[facility]* Chief Complaint SMOKER 6 M FU COVID POSITIVE/WANTS MEDS COVID-19 MED REFILL 3 M FU Reason for Visit Stage 3 severe COPD by GOLD classification COVID-19 Encounter for screening for COVID-19 Encounter for preventative adult health care examination Restless leg syndrome Atherosclerosis of coronary artery of [place] heart without angina pectoris Essential hypertension Stage 3 severe COPD by GOLD classification Smoking greater than 40 pack years Stage 3 severe COPD by GOLD classification [facility] Work Phone: Chief complaint+Reason for visit Narrative* Chief Complaint SMOKER 6 M FU COVID POSITIVE/WANTS MEDS COVID-19 MED REFILL 3 M FU DIZZINESS Reason for Visit Stage 3 severe COPD by GOLD classification COVID-19 Encounter for screening for COVID-19 Encounter for preventative adult health care examination Restless leg syndrome Atherosclerosis of coronary artery of [place] heart without angina pectoris Essential hypertension Stage 3 severe COPD by GOLD classification Smoking greater than 40 pack years Stage 3 severe COPD by GOLD classification [facility] Work Phone: evaluation note* Diagnosis Onset Date Resolution Status 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 Atherosclerosis of coronary artery of [place] heart without angina pectoris chronic Essential hypertension chron ic Hyperlipidemia chronic Presence of stent in coronary artery August 01, 2018 chronic [facility] Work Phone: Evaluation noteNo assessment information available [facility] Work Phone: Evaluation note* Diagnosis Onset Date Resolution Status 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 COVID-19 acute Encounter for screening for COVID-19 acute Encounter for preventative a dult health care examination acute Restless leg syndrome acute Atherosclerosis of coronary artery of [place] heart without angina pectoris chronic Essential hypertension chron ic 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 Smoking greater than 40 pack years chronic 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 [facility] Work Phone: Evaluation note* Diagnosis Onset Date Resolution Status Emphysema with both acute and chronic bronchitis acute [facility] Work Phone: Evaluation note* Diagnosis Onset Date Resolution Status Emphysema with both acute and chronic bronchitis acute Depression with anxiety 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 Smoking greater than 40 pack years chronic Stage 3 severe COPD by GOLD classification [facility] Work Phone: Evaluation note* Diagnosis Onset Date Resolution Status Flu vaccine need acute Essential hypertension chron ic Hyperlipidemia chronic Restless leg syndrome chroni c 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 Benign prostatic hyperplasia chronic Essential hypertension chron ic Hyperlipidemia chronic Restless leg syndrome chroni c Stage 3 severe COPD by GOLD classification [facility] Work Phone: Reason for referral (narrative)No reason for referral [facility] Work Phone: Summary Purpose Family History No Family History Records Found Relationship Condition Age at Onset Recorded Date/T bessy mother Malignant neoplasm Unknown father Cardiac disease Unknown Myocardial infarction Unknown sister Chronic obstructive pulmonary disease Unk nown brother Chronic obstructive pulmonary disease Unk nown Malignant neoplasm Unknown Advance Directives No Advanced Directives Records Found Advance Directive Response Recorded Date/ Time Advance Directives No March 3:49pm Living Will No March 30 021 3:49pm Power of Tile Grader No March 30, 2021 3:49pm Documents on File Type Date Recorded Patient Spa Associate Expl anation Advance Directive(s) Advance Directive(s) 08/01/2018 6:27 AM Advance Directive Response Recorded Date/ Time Advance Directives No March 2:49pm Living Will No March 30 021 2:49pm Power of Tile Grader No March 30, 2021 2:49pm Advance Directive Response Recorded Date/ Time Advance Directives No March 2:49pm Living Will No March 12 11:27am Power of Tile Grader No March 12, 2022 11:27am Advance Directive Response Recorded Date/ Time Advance Directives No November 14 1:41pm Living Will No November 14, 2022 1:41pm Power of Tile Grader No November 14 1:41pm Advance Directive Response Recorded Date/ Time Advance Directives No November 14 12:41pm Living Will No November 14, 2022 12:41pm Power of Tile Grader No November 14 12:41pm Advance Directive Response Recorded Date/ Time Advance Directives No May 3:28pm Hospital Course Note HNO ID: [id number] Author: Diya hogue ([place]) [place] Service: Cardiovascular Medicine Author Type: Resident [...] Seferino Peters Primary Care Physician: Dr. Michael Arroyo Length of Stay: 3 days Primary Diagnosis: (R94.39) Abnormal stress test (I31.4) Cardiac tamponade (I31.3) Pericardial effusion Secondary Diagnoses/ Problem List: Patient Active Hospital Problem List: HTN (hypertension) (08/01/2018) Reason f (more content not included)... Chief Complaint and Reason for Visit Chief Complaint PHONE-COLD SX EORDER 1 y fu EORDER Reason for Visit Stage 3 severe COPD by GOLD classification Atherosclerosis of coronary artery of [place] heart without angina pectoris Essential hypertension Hyperlipidemia Presence of stent in coronary artery Chief Complaint SMOKER Chief Complaint CONGESTION/COUGH NICOTINE DEP Reason for Visit Emphysema with both acute and chronic bronchitis Chief Complaint CONGESTION/COUGH NICOTINE DEP 4 M FU Reason for Visit Emphysema with both acute and chronic bronchitis Depression with anxiety Smoking greater than 40 pack years Stage 3 severe COPD by GOLD classification Chief Complaint 1 Y FU 4 M FU 3 M FU Reason for Visit Flu vaccine need Essential hypertension Hyperlipidemia Restless leg syndrome Stage 3 severe COPD by GOLD classification Stage 3 severe COPD by GOLD classification Benign prostatic hyperplasia Essential hypertension Hyperlipidemia Restless leg syndrome Stage 3 severe COPD by GOLD classification Chief Complaint Admit Date CONGESTION/DALY June 05, 2024 8:06am XRAY June 05, 2024 2:29pm Shortness of breath October 02, 2024 11:0 3am Reason for Visit Admit Date COPD exacerbation June 05, 2024 8:06am Shortness of breath October 02, 2024 11:0 3am Additional Source Comments (unrecognized sect ion and content) No Status Records FoundNo Status Records FoundNo Status Records FoundNo Status Records Found INFORMATION SOURCE (unrecogn ized section and content) DATE CREATED AUTHOR 08/04/2018 [facility] DATE CREATED AUTHOR AUTHOR'S ORGANIZ ATION 09/05/2018 [facility] DATE CREATED AUTHOR AUTHOR'S ORGANIZ ATION 08/14/2021 [facility] DATE CREATED AUTHOR AUTHOR'S ORGANIZ ATION 10/05/2024 [facility] Goals (unrecognized section and content) Goals may be documented in a n alternate sectionGoals may be documented in an alternate sectionGoals may be documented in an alternate sectionGoals may be documented in an alternate sectionGoals may be documented in an alternate sectionGoals may be documented in an alternate sectionGoals may be documented in an alternate sectionGoals may be documented in an alternate section Source Comments (unrecognize d section and content) In the event this informatio n is protected by the Federal Confidentiality of Alcohol and Drug Abuse Patient Records regulations: The Federal rules restrict any use of the information to criminally investigate or prosecute any alcohol or drug abuse patient.[facility] Reason for Visit (unrecogniz ed section and content) Reason Onset Date Comments Community Monitoring Outreach 08/11/2021 [facility] Care Teams (unrecognized sec tion and content) Team Status: Active Member Role Status Dates Dr. Sharon Osorio MD Family Provider Active Dr. Sharon Osorio MD Primary Care Provider Active Team Status: Inactive Member Role Status Dates Dr. Sharon Osorio MD Primary Care Provider, Refer ring Provider Active Colin Varela PA, PA Attending Provider Active Team Status: Inactive Member Role Status Dates Dr. Sharon Osorio MD Primary Care Provider Active Sharon Hester NP, [employer] Attending Provider, Referrin g Provider Active Team Status: Inactive Member Role Status Dates Dr. Sharon Osorio MD Primary Care Provider, Refer ring Provider Active Sharon Hester NP, [employer] OPERATOR-C Attending Provider Active Team Status: Inactive Member Role Status Dates Dr. Sharon Osorio MD Primary Care P barbara, Attending Provider, Referring Provider Active Team Status: Inactive Member Role Status Dates Dr. Sharon Osorio MD Primary Care Provider, Refer ring Provider Active Dr. Sam Hi MD Attending Provider Active Team Status: Active Member Role Status Dates Dr. Sharon Osorio MD Primary Care Provider Active Team Status: Inactive Member Role Status Dates Dr. Sharon Osorio MD Primary Care Provider Active Start: June 05, 2024 End: June 05, 2024 Dr. Sharon Osorio MD Referring Provider Active Start: June 05, 2024 End: June 05, 2024 LEONIDAS Wheeler Attending Provider Active Star t: June 05, 2024 End: June 05, 2024 Team Status: Inactive Member Role Status Dates Dr. Sharon Osorio MD Primary Care Provider Active Start: June 05, 2024 End: June 05, 2024 Dr. Weston Mccarthy MD Attending Provider Active S tart: June 05, 2024 End: June 05, 2024 Team Status: Inactive Member Role Status Dates Dr. Sharon Osorio MD Primary Care Provider Active Start: October 02, 2024 End: October 02, 2024 Dr. Sharon Osorio MD Referring Provider Active Start: October 02, 2024 End: October 02, 2024 Sharon Hester NP, [employer] OPERATOR-C Attending Provider Active Start: October 02, 2024 End: October 02, 2024 FOR RECORDS PERTAINING TO PATIENTS WHO ARE [...] BE BASED ON THE PRIMARY CLINICAL RECORDS. [facility] [employer] provides no warranty or guarantee of the accuracy or completeness of information in this document.
--- NOTE | 2024-10-10 10:07 | PCM.PSN.6M ---
PSN 6 Minute Walk Test 6 Minute Walk Test 6 Minute Walk Test: 6 Minute Walk Test PSN:6-Minute Walk Test Start: 10/08/24 12:46 Freq: Status: Active Protocol: RESP.6MINW Document 10/08/24 12:46 JR (Rec: 10/08/24 12:50 JR [id number]) 6 Minute Walk Test Date Performed 10/08/24 Time Performed 12:30 Height 5 ft 8 in Weight: 162 lb Weight in Pounds 162.[address]: richard Assistive device None used: Pre-test Oxygen Delivery Room Air Method Pulse Ox (%) 87 Pulse Rate (60-100 90 beats/min) Dyspnea Kwame Scale ( 3 0-10) Exertion Kwame Scale 6 (6-20) 1st minute Oxygen Flow Rate (L/ 2 min) (L/min) Oxygen Delivery Nasal Cannula Method Pulse Ox (%) 92 Pulse Rate (60-100 93 beats/min) 2nd minute Oxygen Flow Rate (L/ 2 min) (L/min) Oxygen Delivery Nasal Cannula Method Pulse Ox (%) 87 Pulse Rate (60-100 91 beats/min) 3rd minute Oxygen Flow Rate (L/ 4 min) (L/min) Oxygen Delivery Nasal Cannula Method Pulse Ox (%) 92 Pulse Rate (60-100 92 beats/min) 4th minute Oxygen Flow Rate (L/ 4 min) (L/min) Oxygen Delivery Nasal Cannula Method Pulse Ox (%) 91 Pulse Rate (60-100 94 beats/min) 5th minute Oxygen Flow Rate (L/ 4 min) (L/min) Oxygen Delivery Nasal Cannula Method Pulse Ox (%) 92 Pulse Rate (60-100 97 beats/min) 6th minute Oxygen Flow Rate (L/ 4 min) (L/min) Oxygen Delivery Nasal Cannula Method Pulse Ox (%) 90 Pulse Rate (60-100 96 beats/min) Dyspnea Kwame Scale ( 2 0-10) Exertion Kwame Scale 11 (6-20) Post-test Oxygen Flow Rate (L/ 4 min) (L/min) Oxygen Delivery Nasal Cannula Method Pulse Ox (%) 94 Pulse Rate (60-100 84 beats/min) Full Laps Walked 16 Partial Lap, Number 15 of Tiles Walked Total Distance 959 Walked (ft) 10/08/24 12:49 Cardiopulmonary Services by Anna Covarrubias Patient arrived on RA and SpO2 was 87-88% at baseline. 2L continuous added at that time. Patient began walking and at the 2min joanne patient's SpO2 was 87%. 4L continuous O2 added at that time and throughout the rest of the testing. Anna Covarrubias RRT Initialized on 10/08/24 12:49 - END OF NOTE Interpretation Interpretation: The patient ambulated 959 feet over the course of 6 minutes beginning on room air without assistive devices. Pretesting oxygen saturation was noted to be 88% on room air. 2 L/min of continuous flow oxygen was applied to commence testing. With ambulation, the gilmar oxygen saturation was 87%, requiring an escalation in flow rate to 4 L/min. Recommendations Recommendations: 2 L/min supplemental oxygen is required at rest, while 4 L/min is required with exertion.
== END | disposition home or self-care (01) ==
LOC: PSN 12:14
PROVIDERS: PCP Internal Medicine; Referring Provider Nurse Practitioner Acute Care; Visit Provider Nurse Practitioner Acute Care
DX: J44.9 Chronic obstructive pulmonary disease, unspecified (principal)
CPT/HCPCS: 94618

== ENCOUNTER → 2024-11-14 | Outpatient (CLI) | payer MEDICARE, MEDICAID, SELFPAY ==
[2024-11-14 17:09] LABS: Hematocrit 46.4 % (40-54); Hemoglobin 15.3 g/dL (13.0-16.5); Immature Granulocytes Count 0.050 X10^3/uL (0.0-0.0); Mean Corp Hgb Conc 33.0 g/dL (32-36); Mean Corpuscular Volume 87.2 fL (80-94); Mean Platelet Vol. 10.7 fl (6.2-12.0); NRBC Flagged by Analyzer 0 % (0-5); Platelet Count 268 K/mm3 (150-450); RBC Distribution Width CV 13.0 % (11.6-14.6); RBC Distribution Width SD 40.5 fl (35.1-43.9); Red Blood Count 5.32 M/mm3 (4.6-6.2); White Blood Count 9.2 K/mm3 (4.4-11.0)
[2024-11-14 17:55] LABS: AST(SGOT) 37 U/L (<=37); Alanine Aminotransfer ALT/SGPT 32 U/L (<=46); Albumin, Serum 4.3 g/dL (3.4-4.8); Alkaline Phosphatase 85 U/L (40-129); Anion Gap 12 (5-15); BUN 18 mg/dL (4-19); BUN/Creat Ratio 17.0 RATIO (10-20); Calcium,Total 9.4 mg/dL (7.6-11.0); Carbon Dioxide 20.4 mmol/L (21.0-32.0); Chloride 104 mmol/L (98-108); Globulin 2.9 g/dL (2.2-4.2); Glucose 102 mg/dL (70-99); Potassium 4.3 mmol/L (3.3-5.1)
== END | disposition home or self-care (01) ==
LOC: BIMLAB 14:52
PROVIDERS: PCP Internal Medicine; Referring Provider Internal Medicine; Visit Provider Internal Medicine
DX: I10 Essential (primary) hypertension (principal); R73.03 Prediabetes
CPT/HCPCS: 36415; 80053; 83036; 85025

== ENCOUNTER → 2024-12-03 | Outpatient (CLI) | payer MEDICARE, MEDICAID, SELFPAY ==
--- NOTE | 2024-12-03 12:48 | EKG12_ITS ---
Test Reason : CHEST PAIN Blood Pressure : */* mmHG Vent. Rate : 75 BPM Atrial Rate : 75 BPM P-R Int : 98 ms QRS Dur : 130 ms QT Int : 396 ms P-R-T Axes : 57 41 57 degrees QTcB Int : 442 ms Sinus rhythm with short [place] Right bundle branch block Abnormal ECG Confirmed by JANES MARTINEZ, EASTON ([id number]), editor greeting card ADAN MOSS ([id number]) on 12/04/2024 9:34:41 AM Referred By: Sharon Osorio Confirmed By: EASTON MARRERO MD
== END | disposition home or self-care (01) ==
LOC: PSN 12:38
PROVIDERS: PCP Internal Medicine; Referring Provider Internal Medicine; Visit Provider Internal Medicine
DX: I25.10 Atherosclerotic heart disease of native coronary artery without angina pectoris (principal)
CPT/HCPCS: 93005

== ENCOUNTER → 2024-12-11 | Outpatient (CLI) | payer MEDICARE, SELFPAY ==
--- OUTSIDE RECORDS SUMMARY | 2024-12-11 07:06 | XMS RPT_ITS | CCD ---
Author Organization [facility] InformCounts include 234 beds at the [facility] Care Team Providers Care Ui Programmer Name Role Phone JIA VICTORIA Admitting Unavailable Michael Arroyo Primary Care Unavailable UNKNOWN, PROVIDER Attending Unavailable KALLIE RAMEY Consulting Unavailable Dr. Sharon Osorio Primary Care Provider [phone] Dr. Sharon Osorio Referring Provider [phone] ELEN Banuelos Attending Provider Unavailab abbe Slater PLUGGER WORKER, PLUGGER WORKER-C Meg Attending Provider Unavailable Primary Care Provider UnavailDr. Sharon Aguilera Primary Care Provider [phone] Dr. Sharon Osorio Referring Provider [phone] Dr. Sam Hi Attending Provider ELEN Toney Attending Provider Terri PLUGGER WORKER, PLUGGER WORKER-C Michael Attending Provider [phone] Richard PLUGGER WORKER, PLUGGER WORKER-C Sharon Attending Provider Dr. Sharon Osorio Primary Care Provider [phone] Dr. Sharon Osorio Referring Provider [phone] ELEN Anthony Attending Provider Richard BABCOCK, PLUGGER WORKER-C Sharon Attending Provider Dr. Sharon Osorio Primary Care Provider [phone] Dr. Sharon Osorio Attending Provider [phone] Dr. Sharon Osorio Referring Provider [phone] Dr. Sam Hi Attending Provider [phone] Jo MARTINEZ, Dr. Herrera Primary Care Provider Jo MARTINEZ, Dr. Herrera Referring Provider [phone] Ashley PLUGGER WORKER-C, Sergio Attending Provider Fabio MARTINEZ, Dr. Ontiveros Attending Provider Richard PLUGGER WORKER-C, Sharon Attending Provider Jo MARTINEZ, Dr. Herrera Primary Care Provider Jo MARTINEZ, Dr. Herrera Referring Provider [phone] Richard PLUGGER WORKER-C, Sharon Referring Provider Richard PLUGGER WORKER-C, Sharon Other Provider Dr. Elgin Trujillo DO Attending Provider Jo MARTINEZ, Dr. Herrera Attending Provider [phone] Oleghe, Efewongbe Referring Unavailable Hester PLUGGER WORKER, Sharon Attending Unavailable Oleghe, Efewongbe Primary Care Unavailable Oleghe, Efewongbe Referring Unavailable Oleghe, Efewongbe Attending Unavailable Oleghe, Efewongbe Primary Care Unavailable Hester PLUGGER WORKER, Sharon Referring Unavailable Hester PLUGGER WORKER, Sharon Attending Unavailable Oleghe, Efewongbe Primary Care Unavailable Elgin Trujillo Attending Unavailable Richard PLUGGER WORKERSharon Referring Unavailable Oleghe, Efewongbe Primary Care Unavailable Richard PLUGGER WORKER, Sharon Consulting Unavailable Oleghe, Efewongbe Attending Unavailable Oleghe, Efewongbe Primary Care Unavailable Oleghe, Efewongbe Referring Unavailable Oleghe, Efewongbe Referring Unavailable Oleghe, Efewongbe Attending Unavailable Oleghe, Efewongbe Primary Care Unavailable Oleghe, Efewongbe Primary Care Unavailable Oleghe, Efewongbe Referring Unavailable Hester PLUGGER WORKER, Sharon Attending Unavailable Oleghe, Efewongbe Primary Care Unavailable Oleghe, Efewongbe Referring Unavailable Colin Anthony Attending Unavailable Oleghe, Efewongbe Primary Care Unavailable Oleghe, Efewongbe Referring Unavailable Bala Hussein NP Attending Unavailable Oleghe, Efewongbe Primary Care Unavailable Oleghe, Efewongbe Referring Unavailable Sergio Ramirez Attending Unavailable Oleghe, Efewongbe Primary Care Unavailable Weston Mccarthy Attending Unavailable Oleghe, Efewongbe Referring Unavailable Oleghe, Efewongbe Attending Unavailable Oleghe, Efewongbe Primary Care Unavailable Oleghe, Efewongbe Attending Unavailable Oleghe, Efewongbe Primary Care Unavailable Oleghe, Efewongbe Referring Unavailable Oleghe, Efewongbe Attending Unavailable Oleghe, Efewongbe Primary Care Unavailable Oleghe, Efewongbe Referring Unavailable Richard PLUGGER WORKER, Sharon Attending Unavailable Oleghe, Efewongbe Primary Care Unavailable Richard PLUGGER WORKER, Sharon Referring Unavailable Oleghe, Efewongbe Referring Unavailable Oleghe, Efewongbe Attending Unavailable Oleghe, Efewongbe Primary Care Unavailable Medications Current Medications Medication Drug Class(es) Dates Sig (Normalized) Sig (Original) [id number] 200 actuat albuterol 0.09 mg/actuat metered dose inhaler (20 sources) beta2-Adrenergic Agonist Start: 10-28-2024 Albuterol Sulfate (Ventolin Hfa) 90 mcg/actuation HFA aerosol inhaler Active 2 NMA INHALATION Q4H as needed for shortness of breath or wheezing 8.5 October 28, 2024 12:00am Start: 02-18-2021 take 1 puff(s) by in halation every six hours Albuterol Sulfate (Proair Hfa) 90 mcg/actuation HFA aerosol inhaler Active 2 PUFF INHALATION EVERY 6 HOURS February 18, 2021 1:44pm Start: 05-23-2019 End: 10-07-2024 take 2.5 mg by inhalation every four hours as needed for wheezing Albuterol Sulfate 2.5 mg /3 mL (0.083 %) solution for nebulization Discontinued 2.5 mg INHALATION Q4H as needed for Sob &/Or Wheezing 180 3 June 15, 2020 1:09pm October 07, 2024 1:22pm Start: 12-24-2018 End: 10-28-2024 Albuterol Sulfate 90 mcg/act uation HFA aerosol inhaler Discontinued 2 NMA INHALATION EVERY 6 HOURS as needed for shortness of breath or wheezing 18 February 19, 2024 5:27pm October 28, 2024 1:31pm Start: 12-24-2018 End: 03-15-2023 take 1 puff(s) [...] in structed every 4 hours as needed. aspirin 81 mg delayed release oral tablet (14 sources) Platelet Aggregation Inhibitor, Nonsteroidal Anti-inflammatory Drug Start: 9 take 1 tablet by mouth once daily Aspirin (Adult Aspirin Regimen) 81 mg tablet,delayed release (DR/EC) Active 81 mg PO DAILY August 06, 2018 12:00am Comment on above: Take 81 mg by mouth once daily. Budesonide-Glycopy r-Formoterol (3 sources) Corticosteroid, beta2-Adrenergic Agonist Start: 5 Budesonide-Glycopyr -Formoterol (Breztri Aerosphere) 160-9-4.8 mcg/actuation HFA aerosol inhaler Active 2 NMA INHALATION TWICE A DAY 10.7 6 November 26, 2024 12:00am diazePAM 2 mg oral tablet (10 sources) Benzodiazepine Start: 2 take 1 tablet by mouth three times daily as needed Diazepam 2 MG tablet Active 2 mg PO 3 TIMES DAILY NEEDED as needed for Vertigo 10 March 12, 2022 1:00am ferrous sulfate 325 mg oral tablet (20 sources) Start: take 1 tablet by mouth once daily Ferrous Sulfate (Ferosul) 325 mg (65 mg iron) tablet Active 325 mg PO daily October 02, 2024 12:00am Start: 08-26-2021 End: 05-16-2024 take 1 tablet by mouth once daily Ferrous Sulfate 325 mg (65 mg iron) tablet Discontinued 325 mg PO DAILY 90 3 April 05, 2024 12:47pm May 16, 2024 2:55pm Start: 04-30-2019 End: 06-23-2021 take 1 tablet by mouth once daily Ferrous Sulfate 325 mg (65 mg iron) tablet Discontinued 325 mg PO DAILY 90 3 May 25, 2021 11:21am June 23, 2021 2:11pm Multivitamin (One Daily Multivitamin) tablet (13 sources) Start: 06-23-2021 take 1 tablet by mouth once daily Multivitamin (One Daily Multivitamin) tablet Active 1 TABLET PO DAILY June 23, 2021 2:11pm Start: 06-23-2021 take 1 tablet by christa [...] TABLET PO DAILY June 23, 2021 1:00am Completed/Discontinued Medications Medication Drug Class(es) Dates Sig (Normalized) Sig (Original) acetaminophen 500 mg oral capsule (20 sources) Start: 10-02-2018 End: 10-02-2018 take 1 capsule by mouth every six hours Acetaminophen 500 mg capsule Discontinued 500 mg PO EVERY 6 HOURS 30 0 October 02, 2018 8:39am October 02, 2018 8:39am Zoster without complications Albuterol Sulfate 90 mcg/actuation HFA aerosol inhaler (6 sources) Start: 08-06-2018 End: 12-24-2018 Albuterol Sulfate 90 mcg/actuation HFA aerosol inhaler Discontinued 2 NMA INHALATION Q4H as needed for Wheezing August 06, 2018 11:23am December 24, 2018 12:47pm 24 hr alfuzosin hydrochloride 10 mg extended release oral tablet (20 sources) alpha-Adrenergic Bear Start: 05-24-2019 End: 05-24-2019 take 1 tablet by mouth every twenty-four hours Alfuzosin 10 mg tablet extended release 24 hr Discontinued mg PO May 24, 2019 1:00am May 24, 2019 12:59pm Start: 05-24-2019 End: 05-24-2019 Alfuzosin Discontinued MG PO May 24, 2019 12:00am May 24, 2019 11:59am Start: 08-06-2018 End: 10-31-2024 take 1 tablet by mouth once daily Alfuzosin 10 mg tablet extended release 24 hr Discontinued 10 mg PO DAILY 90 February 19, 2024 5:27pm October 31, 2024 10:42am Comment on above: Take 1 tablet by christa once daily. amLODIPine 10 mg oral tablet (20 sources) Dihydropyridine Calcium Channel Bear Start: 08-06-19 End: 11-01-19 take 1 tablet by mouth once daily Amlodipine 10 mg tablet Discontinued 10 mg PO DAILY February 19, 2024 5:28pm October 31, 2024 10:42am Comment on above: Take 1 tablet by christa once daily. amoxicillin 875 mg / clavulanate 125 mg oral tablet (20 sources) Penicillin-class Antibacterial Start: 06-12-19 End: 10-03-19 Amoxicillin-Pot Clavulanate 875-125 mg tablet Discontinued 1 {tbl} PO TWICE A DAY 0 June 12, 2024 1:00am October 02, 2024 11:08am Start: 09-25-2023 End: 05-16-2024 Amoxicillin-Pot Clavulanate 875-125 mg tablet Discontinued 1 {tbl} PO TWICE A DAY 20 0 November 05, 2023 10:15am May 16, 2024 2:51pm Start: 11-24-2022 End: 12-07-2022 Amoxicillin-Pot Clavulanate 875-125 mg tablet Discontinued 1 {tbl} PO TWICE A DAY 20 November 24, 2022 12:00am December 07, 2022 2:18pm Start: 11-24-2022 End: 12-07-2022 take 1 tablet by mouth twice daily Amoxicillin-Pot Clavulanate Discontinued 1 TABLET PO TWICE A DAY November 23, 2022 11:00pm December 07, 2022 1:18pm atorvastatin 40 mg oral tablet (20 sources) HMG-CoA Reductase Inhibitor Start: 08-04-2018 End: 03-30-2024 take 1 tablet by mouth once daily Atorvastatin 40 mg tablet Discontinued 40 mg PO DAILY February 19, 2024 5:28pm March 30, 2024 6:27pm Comment on above: Take 1 tablet by christa th daily at bedtime. azithromycin 250 mg oral tablet (20 sources) Macrolide Antimicrobial Start: 09-19-2023 End: 09-25-2023 Azithromycin 250 mg tablet Discontinued 0 PO .COMPLEX 6 0 September 19, 2023 12:00am September 25, 2023 10:10am For 250 mg dose pack: take 500 mg today (day 1), then 250 mg for 4 days (days 2-5) PO Start: 09-07-2022 End: 11-24-2022 Azithromycin 250 mg tablet D iscontinued 250 mg PO daily 6 0 November 14, 2022 3:03pm November 24, 2022 12:29pm 2 tablets today, then 1 tablet daily on days 2 through 5 benzonatate 100 mg oral capsule (11 sources) Non-narcotic Antitussive Start: 12-20-2021 End: 01-16-2023 take 2 capsules by mouth three times daily as needed for cough Benzonatate 100 mg capsule Discontinued 200 mg PO THREE TIMES A DAY as needed for cough 30 0 December 20, 2021 12:00am January 16, 2023 3:18pm Start: 12-20-2021 End: 01-16-2023 take 200 mg by mouth three times daily Benzonatate Discontinued 200 MG PO THREE TIMES A DAY December 19, 2021 11:00pm January 16, 2023 2:18pm cetirizine hydrochloride 10 mg oral capsule (20 sources) Histamine-1 Receptor Antagonist Start: 04-08-2019 End: 08-19-2024 take 1 capsule by mouth at bedtime Cetirizine 10 mg capsule Discontinued 10 mg PO BEDTIME 90 February 16, 2024 12:57pm August 19, 2024 4:21pm ciprofloxacin 500 mg oral tablet (20 sources) Quinolone Antimicrobial Start: 09-05-2018 End: 10-02-2018 take 1 tablet by mouth twice daily Ciprofloxacin Hcl 500 mg tablet Discontinued 500 mg PO TWICE A DAY 6 0 September 11, 2018 2:46pm October 02, 2018 8:27am citalopram 40 mg oral tablet (20 sources) Serotonin Reuptake Inhibitor Start: 12-28-2018 End: 11-06-2019 take 1 tablet by mouth once daily Citalopram 40 mg tablet Discontinued 40 mg PO DAILY 90 3 December 28, 2018 9:48am November 06, 2019 1:08pm Start: 12-31-2014 End: 12-28-2018 take 1 tablet by mouth once daily Citalopram 20 mg tablet Discontinued 20 mg PO DAILY 90 3 December 03, 2018 4:22pm December 28, 2018 9:48am Comment on above: Take 1 tablet by christa once daily. clopidogrel 75 mg oral tablet (20 sources) P2Y12 Platelet Inhibitor Start: 9 End: 0 take 1 tablet by mouth once daily Clopidogrel 75 mg tablet Discontinued 75 mg PO DAILY 30 September 12, 2018 12:00am August 13, 2019 2:57pm Start: 08-08-2018 End: 09-03-2018 take 1 tablet by mouth once daily Clopidogrel 75 mg tablet Discontinued 75 mg PO DAILY 30 August 08, 2018 12:00am September 03, 2018 2:17pm cyclobenzaprine hydrochloride 10 mg oral tablet (13 sources) Muscle Relaxant Start: 12-31-2014 End: 08-06-2018 take 1 tablet by mouth at bedtime Cyclobenzaprine 10 MG tablet Discontinued 10 mg PO AT BEDTIME December 31, 2014 12:00am August 06, 2018 11:27am Disability Placard (7 sources) Start: 03-16-2023 Disability Placard Active 0 .ROUTE .MEDSUPPLY 1 0 March 16, 2023 1:00am Stage 3 severe COPD by GOLD classification Chronic obstructive pulmonary disease, unspecified Disabled Expires in 5 years Start: 03-16-2023 Disability [place] card Active 0 .ROUTE .MEDSUPPLY March 16, 2023 1:00am Expires in 5 years Start: 03-16-2023 Disability [place]kson card Active 0 .ROUTE .MEDSUPPLY March 16, 2023 12:00am Expires in 5 years doxycycline monohydrate 100 mg oral capsule (20 sources) Tetracycline-class Drug Start: 06-05-2024 End: 06-10-2024 take 1 capsule by mouth twice daily Doxycycline Monohydrate 100 mg capsule Discontinued 100 mg PO TWICE A DAY 10 5 0 June 05, 2024 1:00am June 09, 2024 1:00am June 10, 2024 1:12am Start: 12-25-2023 End: 05-16-2024 take 1 capsule by mouth twice daily Doxycycline Monohydrate 100 mg capsule Discontinued 100 mg PO TWICE A DAY 20 0 December 25, 2023 12:00am May 16, 2024 2:55pm Start: 08-09-2022 End: 11-24-2022 take 1 capsule by mouth twice daily Doxycycline Hyclate 100 mg capsule Discontinued 100 mg PO TWICE A DAY 20 0 August 09, 2022 12:00am November 24, 2022 12:28pm Start: 03-25-2019 End: 04-08-2019 take 1 tablet by mouth twice daily Doxycycline Hyclate 100 mg tablet Discontinued 100 mg PO TWICE A DAY 20 0 March 25, 2019 1:00am April 08, 2019 3:38pm dutasteride 0.5 mg oral capsule (20 sources) 5-alpha Reductase Inhibitor Start: 04-16-2019 End: 09-20-2024 take 1 capsule by mouth once daily Dutasteride 0.5 mg capsule Discontinued 0.5 mg PO DAILY 90 February 19, 2024 5:28pm September 20, 2024 1:15pm Start: 04-16-2019 End: 04-16-2019 Dutasteride 0.5 mg capsule D iscontinued mg PO April 16, 2019 1:00am April 16, 2019 2:52pm Start: 04-16-2019 End: 04-16-2019 Dutasteride Discontinued MG PO April 16, 2019 12:00am April 16, 2019 1:52pm esomeprazole 40 mg delayed release oral capsule (13 sources) Proton Pump Inhibitor Start: 11-07-2019 End: 12-16-2019 take 1 capsule by mouth once daily Esomeprazole Magnesium 40 mg capsule,delayed release(DR/EC) Discontinued 40 mg PO DAILY 90 November 07, 2019 12:00am December 16, 2019 1:13pm Fluad Quad [id number](65yr up)(PF) 60 mcg (15 mcg x 4)/0.5mL IM syringe (flu vac (1 source) Start: 02-18-2021 End: 02-18-2021 Fluad Quad (65yr up)(PF) 60 mcg (15 mcg x 4)/0.5mL IM syringe (flu vac Discontinued 60 MCG IM ONCE 0.5 February 18, 2021 1:27pm February 18, 2021 2:29pm fluticasone propionate 0.05 mg/actuat metered dose nasal spray (20 sources) Corticosteroid Start: 04-08-2019 End: 12-16-2019 Fluticasone Propionate 50 mcg/actuation spray,suspension Discontinued 2 NMA INTRANASAL DAILY as needed for Congestion August 13, 2019 1:54pm December 16, 2019 1:14pm Start: 04-08-2019 End: 12-16-2019 Fluticasone Propionate Disco ntinued 2 SPRAY INTRANASAL DAILY August 13, 2019 12:54pm December 16, 2019 12:14pm Fluticasone Propion-Salmeterol (13 sources) Corticosteroid, beta2-Adrenergic Agonist Start: 02-26-2019 End: 04-08-2019 Fluticasone Propion-Salmeterol (Advair Diskus) 500-50 mcg/dose blister with device Discontinued 1 INH INHALATION TWICE A DAY 60 February 26, 2019 12:07pm April 08, 2019 3:49pm Start: 02-26-2019 End: 04-08-2019 Fluticasone Propion-Salmeter ol (Advair Diskus) 500-50 mcg/dose blister with device Discontinued 1 NMA INHALATION TWICE A DAY 60 1 February 26, 2019 1:00am April 08, 2019 [...] 26, 2019 1:00am April 08, 2019 3:49pm Cnsiwbszajf-Zicbphtle-Pucbst er (20 sources) Anticholinergic, Corticosteroid, beta2-Adrenergic Agonist Start: 04-07-2023 End: 04-12-2023 Jxhkeliaese-Ihbuceqxh-Dhtykw er 100-62.5-25 mcg blister with device Discontinued 1 NMA INHALATION DAILY 60 2 April 07, 2023 3:50pm April 12, 2023 3:09pm Start: 04-07-2023 End: 04-12-2023 Icxaansgahb-Mbixhqtin-Ckcmzd er 100-62.5-25 mcg blister with device Discontinued 1 NMA INHALATION DAILY 60 April 07, 2023 3:50pm April 12, 2023 3:09pm Start: 04-07-2023 End: 04-12-2023 Dqrxedbyopb-Dzvlwvhgi-Qdzcde er Discontinued 1 EACH INHALATION DAILY 60 April 07, 2023 2:50pm April 12, 2023 2:09pm Start: 09-14-2022 End: 04-07-2023 Wumwdimadli-Lmlgoavgx-Nprflu er 100-62.5-25 mcg blister with device Discontinued 1 NMA INHALATION DAILY 60 5 September 14, 2022 1:06pm April 07, 2023 3:50pm Start: 09-14-2022 End: 04-07-2023 Rnkkmgigzrr-Kslbzyfio-Hpypbp er 100-62.5-25 mcg blister with device Discontinued 1 NMA INHALATION DAILY 60 September 14, 2022 1:06pm April 07, 2023 3:50pm Start: 09-14-2022 End: 04-07-2023 Solcqmxaaum-Pmyuyihzq-Hdljhs er Discontinued 1 EACH INHALATION DAILY 60 September 14, 2022 12:06pm April 07, 2023 2:50pm Start: 09-14-2022 Fluticasone-Um eclidin-Vilanter Active 1 EACH INHALATION DAILY 60 September 14, 2022 1:06pm Start: 2022 End: 09-14-2022 Cssxntzolgn-Ladkftsrk-Mhpiys er 100-62.5-25 mcg blister with device Discontinued 1 NMA INHALATION DAILY 60 2022 3:48pm September 14, 2022 1:07pm Start: 2022 End: 09-14-2022 Suwlwijdbpi-Rqltpqcdr-Bbdyti er 100-62.5-25 mcg blister with device Discontinued 1 NMA INHALATION DAILY 60 2022 3:48pm September 14, 2022 1:07pm Start: 2022 End: 09-14-2022 Gwxocyhsnpx-Olltgcinz-Yspzaj er Discontinued 1 EACH INHALATION DAILY 2022 2:48pm September 14, 2022 12:07pm Start: 2022 End: 09-14-2022 Xjonbvtkqrx-Uhuttfhgc-Otozbm er Discontinued 1 EACH INHALATION DAILY 2022 3:48pm September 14, 2022 1:07pm Start: 2022 Fluticasone-Um eclidin-Vilanter Active 1 EACH INHALATION DAILY 2022 2:48pm Start: 08-26-2021 End: 2022 Grtnpnzfdvi-Psihljrwr-Ylrkmz er 100-62.5-25 mcg blister with device Discontinued 1 NMA INHALATION DAILY 60 5 August 26, 2021 9:32am 2022 3:48pm Start: 08-26-2021 End: 2022 Xqconrsyhme-Jhyiuhvtq-Tgkynh er 100-62.5-25 mcg blister with device Discontinued 1 NMA INHALATION DAILY 60 August 26, 2021 9:32am 2022 3:48pm Start: 08-26-2021 End: 2022 Rpphlgmlcmd-Ugjvhhryd-Hjacjt er Discontinued 1 EACH INHALATION DAILY 60 August 26, 2021 9:32am 2022 3:48pm Start: 08-26-2021 End: 2022 Nuphqwjixef-Zkdiisdso-Dincun er Discontinued 1 EACH INHALATION DAILY 60 August 26, 2021 8:32am 2022 2:48pm Start: 08-26-2021 Fluticasone-Um eclidin-Vilanter Active 1 EACH INHALATION DAILY 60 August 26, 2021 9:32am Start: 02-18-2021 End: 08-26-2021 Uspzebosiac-Agrzowfek-Wftisp er 100-62.5-25 mcg blister with device Discontinued 1 NMA INHALATION DAILY 60 5 February 18, 2021 1:44pm August 26, 2021 9:32am Start: 02-18-2021 End: 08-26-2021 Mxhanupevfw-Qrnbpbrcj-Rbyvrd er 100-62.5-25 mcg blister with device Discontinued 1 NMA INHALATION DAILY 60 February 18, 2021 1:44pm August 26, 2021 9:32am Start: 02-18-2021 End: 08-26-2021 Wlatbizxdar-Xivwognbz-Dwoobs er Discontinued 1 EACH INHALATION DAILY 60 February 18, 2021 12:44pm August 26, 2021 8:32am Start: 02-18-2021 End: 08-26-2021 Qlapzgimmis-Jxloortmm-Uuborq er Discontinued 1 EACH INHALATION DAILY 60 February 18, 2021 1:44pm August 26, 2021 9:32am Start: 02-18-2021 Fluticasone-Um eclidin-Vilanter Active 1 EACH INHALATION DAILY 60 February 18, 2021 1:44pm Start: 08-24-2020 End: 02-18-2021 Tinbxydctbm-Yeccgzbqa-Lkxahd er 100-62.5-25 mcg blister with device Discontinued 1 NMA INHALATION DAILY 60 5 August 24, 2020 12:22pm February 18, 2021 1:44pm Start: 08-24-2020 End: 02-18-2021 Lfnwpsyefxf-Segsdbmxn-Zyjhta er 100-62.5-25 mcg blister with device Discontinued 1 NMA INHALATION DAILY 60 August 24, 2020 12:22pm February 18, 2021 1:44pm Start: 08-24-2020 End: 02-18-2021 Ddkjufwbqsv-Fbfrdzmks-Ekphbf er Discontinued 1 EACH INHALATION DAILY 60 August 24, 2020 11:22am February 18, 2021 12:44pm Start: 08-24-2020 End: 02-18-2021 Xcncafkqhwx-Xexrbcqdt-Dvdswt er Discontinued 1 EACH INHALATION DAILY 60 August 24, 2020 12:22pm February 18, 2021 1:44pm Start: 08-22-2020 End: 08-24-2020 Aiajxpnefxe-Vbxmiwhpw-Rzmuep er 100-62.5-25 mcg blister with device Discontinued 1 NMA INHALATION DAILY 60 5 August 22, 2020 11:14am August 24, 2020 12:22pm Start: 08-22-2020 End: 08-24-2020 Jwqlktupnby-Uevbuzvky-Eslpdb er 100-62.5-25 mcg blister with device Discontinued 1 NMA INHALATION DAILY 60 August 22, 2020 11:14am August 24, 2020 12:22pm Start: 08-22-2020 End: 08-24-2020 Fchkkpsflmk-Oqbcsbksy-Fvyqap er Discontinued 1 EACH INHALATION DAILY August 22, 2020 10:14am August 24, 2020 11:22am Start: 08-22-2020 End: 08-24-2020 Iyoiztyjmhg-Sdguzgsta-Brqcnu er Discontinued 1 EACH INHALATION DAILY 60 August 22, 2020 11:14am August 24, 2020 12:22pm Start: 02-03-2020 End: 08-22-2020 Fwgjasmvxfv-Xvksnvbtv-Wzfnkn er 100-62.5-25 mcg blister with device Discontinued 1 NMA INHALATION DAILY 60 5 February 03, 2020 2:32pm August 22, 2020 11:14am Start: 02-03-2020 End: 08-22-2020 Pxnuccnsesi-Npopkxqqg-Pboqgg er 100-62.5-25 mcg blister with device Discontinued 1 NMA INHALATION DAILY 60 February 03, 2020 2:32pm August 22, 2020 11:14am Start: 02-03-2020 End: 08-22-2020 Vasswlojrdd-Lsqsixgti-Rwqess er Discontinued 1 EACH INHALATION DAILY 60 February 03, 2020 1:32pm August 22, 2020 10:14am Start: 02-03-2020 End: 08-22-2020 Hvvesgtbvgl-Bdrewiuoe-Filfcm er Discontinued 1 EACH INHALATION DAILY 60 February 03, 2020 2:32pm August 22, 2020 11:14am Start: 11-15-2019 End: 02-03-2020 Gzzptoqnxoe-Cdgllmcby-Evwxeh er 100-62.5-25 mcg blister with device Discontinued 1 NMA INHALATION DAILY 60 2 November 15, 2019 10:47am February 03, 2020 2:33pm Start: 11-15-2019 End: 02-03-2020 Vhajprpoqpy-Zuuogjjyc-Cujxgz er 100-62.5-25 mcg blister with device Discontinued 1 NMA INHALATION DAILY 60 November 15, 2019 10:47am February 03, 2020 2:33pm Start: 11-15-2019 End: 02-03-2020 Mlnulpyicbh-Nooplpnsx-Tgyucs er Discontinued 1 EACH INHALATION DAILY 60 November 15, 2019 9:47am February 03, 2020 1:33pm Start: 11-15-2019 End: 02-03-2020 Ilsrzisypfi-Yxjpbxmce-Dspyxv er Discontinued 1 EACH INHALATION DAILY 60 November 15, 2019 10:47am February 03, 2020 2:33pm Start: 09-02-2019 End: 11-15-2019 Aogwdpiqrwv-Xsrsjzbgi-Kuvogg er Discontinued 1 PUFF IH 1500 September 02, 2019 10:43am November 15, 2019 10:48am Start: 09-02-2019 End: 11-15-2019 Ogsafsnlnkd-Vefnfbwnx-Ydsjzp er 1 EACH blister with device Discontinued 1 NMA IH 1500 September 02, 2019 12:00am November 15, 2019 10:48am Start: 09-02-2019 End: 11-15-2019 Cjmhlyjmnye-Jzjynzfer-Chxcyk er Discontinued 1 PUFF IH 1500 September 01, 2019 11:00pm November 15, 2019 9:48am Start: 09-02-2019 End: 11-15-2019 Cyhtyplmulb-Ayygitswj-Odegta er Discontinued 1 PUFF IH 1500 September 02, 2019 12:00am November 15, 2019 10:48am Start: 04-08-2019 End: 07-09-2019 Vkbzsnkwyve-Gqpuijgpa-Icbjod er (Trelegy Ellipta) 100-62.5-25 mcg blister with device Discontinued 1 INH INHALATION daily 60 April 08, 2019 3:49pm July 09, 2019 1:28pm administer at approximately the same time(s) each day Start: 04-08-2019 End: 07-09-2019 Oihlxjjqspf-Qeasxrupn-Umqwij er (Trelegy Ellipta) 100-62.5-25 mcg blister with device Discontinued 1 NMA INHALATION daily 60 3 April 08, 2019 1:00am July 09, 2019 1:28pm Chronic obstructive pulmonary disease, unspecified administer at approximately the same time(s) each day Start: 04-08-2019 End: 07-09-2019 Epvgulkqepa-Vjoguytts-Zqdiqg er (Trelegy Ellipta) 100-62.5-25 mcg blister with device Discontinued 1 NMA INHALATION daily 60 April 08, 2019 1:00am July 09, 2019 1:28pm administer at approximately the same time(s) each day Start: 04-08-2019 End: 07-09-2019 Cewaxhqnfsg-Jtqmuttrr-Ohtxli er (Trelegy Ellipta) 100-62.5-25 mcg blister with device Discontinued 1 INH INHALATION daily 60 April 08, 2019 12:00am July 09, 2019 12:28pm administer at approximately the same time(s) each day Start: 04-08-2019 End: 07-09-2019 Jjcvdbljqsl-Qsaltpcly-Nnnbii er (Trelegy Ellipta) 100-62.5-25 mcg blister with [...] 5 02/01/2019 Active Start: 08-07-2018 End: 02-26-2019 Pudwbdzpcjk-Pysyotapw-Bfxxtd er (Trelegy Ellipta) 100-62.5-25 mcg blister with device Discontinued 1 INH INHALATION DAILY August 07, 2018 2:53pm February 26, 2019 12:07pm Start: 08-07-2018 End: 02-26-2019 Sdybptcofwq-Ecppmjaxq-Eveimd er (Trelegy Ellipta) 100-62.5-25 mcg blister with device Discontinued 1 NMA INHALATION DAILY August 07, 2018 12:00am February 26, 2019 12:07pm Start: 08-07-2018 End: 02-26-2019 Vgewxrbviic-Zesieyecv-Ehqgpe er (Trelegy Ellipta) 100-62.5-25 mcg blister with device Discontinued 1 INH INHALATION DAILY August 06, 2018 11:00pm February 26, 2019 11:07am Start: 08-07-2018 End: 02-26-2019 Ertanzcuwwh-Eqwddvgmb-Zpzrlu er (Trelegy Ellipta) 100-62.5-25 mcg blister with device Discontinued 1 INH INHALATION DAILY August 07, 2018 12:00am February 26, 2019 12:07pm Start: 06-30-2018 End: 08-07-2018 Fscegocqnex-Nvchqmsqq-Fbuwxa er Discontinued 1 EACH IH DAILY June 30, 2018 1:51pm August 07, 2018 3:09pm Start: 06-30-2018 End: 08-07-2018 take 1 dose by inhalation once daily Aydfbuqralh-Qyigcieun-Eggqhirg 1 EACH blister with device Discontinued 1 NMA IH DAILY June 30, 2018 12:00am August 07, 2018 3:09pm Start: 06-30-2018 End: 08-07-2018 Paqderpmpjm-Dmgbeicml-Botqef er Discontinued 1 EACH IH DAILY June 29, 2018 11:00pm August 07, 2018 2:09pm Start: 06-30-2018 End: 08-07-2018 Dqkjvnwldct-Ssdikihqe-Axtwgp er Discontinued 1 EACH IH DAILY June 30, 2018 12:00am August 07, 2018 3:09pm Comment on above: Inhale 1 Puff as ins tructed once daily as needed. Fluticasone-Umeclidin -Vilanter (20 sources) Start: 11-22-2024 End: 11-26-2024 Bcvkbpepgof-Mawiuiwhu-Uti anter (Trelegy Ellipta) 200-62.5-25 mcg blister with device Discontinued 1 NMA INHALATION DAILY 60 2 November 22, 2024 10:10am November 26, 2024 11:15am Start: 08-15-2024 End: 11-22-2024 Abwxnftthrn-Lyaushcxs-Hxesqb er (Trelegy Ellipta) 200-62.5-25 mcg blister with device Discontinued 1 NMA INHALATION DAILY 60 2 August 15, 2024 4:51pm November 22, 2024 10:10am Start: 08-15-2024 Fluticasone-Um eclidin-Vilanter (Trelegy Ellipta) 200-62.5-25 mcg blister with device Active 1 NMA INHALATION DAILY 60 2 August 15, 2024 4:51pm Start: 08-15-2024 Fluticasone-Um eclidin-Vilanter (Trelegy Ellipta) 200-62.5-25 mcg blister with device Active 1 NMA INHALATION DAILY 60 August 15, 2024 4:51pm Start: 02-19-2024 End: 08-15-2024 Kedigeuhbep-Hwzuadcmi-Nmxrpr er (Trelegy Ellipta) 200-62.5-25 mcg blister with device Discontinued 1 NMA INHALATION DAILY 60 3 February 19, 2024 5:28pm August 15, 2024 4:52pm Start: 02-19-2024 End: 08-15-2024 Fxqvlyclsxd-Asrzuhglz-Dcdfdm er (Trelegy Ellipta) 200-62.5-25 mcg blister with device Discontinued 1 NMA INHALATION DAILY 60 February 19, 2024 5:28pm August 15, 2024 4:52pm Start: 09-10-2023 End: 02-19-2024 Kxnefjqkqcb-Prmscygww-Isnwwd er (Trelegy Ellipta) 200-62.5-25 mcg blister with device Discontinued 1 NMA INHALATION DAILY 60 0 September 10, 2023 4:38pm February 19, 2024 5:29pm Start: 09-10-2023 End: 02-19-2024 Utdqyhlqcbz-Liygsumvt-Irppte er (Trelegy Ellipta) 200-62.5-25 mcg blister with device Discontinued 1 NMA INHALATION DAILY 60 September 10, 2023 4:38pm February 19, 2024 5:29pm Start: 08-08-2023 End: 09-10-2023 Glnfdksqxtz-Ulaaghwon-Frpxrm er (Trelegy Ellipta) 200-62.5-25 mcg blister with device Discontinued 1 NMA INHALATION DAILY 60 5 August 08, 2023 11:46am September 10, 2023 4:39pm Start: 08-08-2023 End: 09-10-2023 Hnuowhwcqhu-Smcwyzabt-Ezpnzg er (Trelegy Ellipta) 200-62.5-25 mcg blister with device Discontinued 1 NMA INHALATION DAILY 60 August 08, 2023 11:46am September 10, 2023 4:39pm Start: 04-12-2023 End: 08-08-2023 Fuvnqhdinxu-Bkuapkvlx-Xymmds er (Trelegy Ellipta) 200-62.5-25 mcg blister with device Discontinued 1 NMA INHALATION DAILY 60 April 12, 2023 1:00am August 08, 2023 11:46am Start: 04-12-2023 End: 08-08-2023 Daqxzdknnbv-Ojxoqkndr-Labfxc er (Trelegy Ellipta) 200-62.5-25 mcg blister with device Discontinued 1 NMA INHALATION DAILY 60 April 12, 2023 1:00am August 08, 2023 11:46am Start: 04-12-2023 Fluticasone-Um eclidin-Vilanter (Trelegy Ellipta) 200-62.5-25 mcg blister with device Active 1 INH INHALATION DAILY 60 April 12, 2023 12:00am furosemide 40 mg oral tablet (20 sources) Loop Diuretic Start: 06-23-2020 End: 04-04-2023 take 1 tablet by mouth once daily Furosemide 40 mg tablet Discontinued 40 mg PO DAILY 90 3 April 04, 2023 2:56pm April 04, 2023 2:56pm gabapentin 400 mg oral capsule (20 sources) Anti-epileptic Agent Start: 09-19-2018 End: 02-19-2024 take 1 capsule by mouth three times daily Gabapentin 400 mg capsule Discontinued 400 mg PO THREE TIMES A DAY 90 1 September 15, 2023 1:12pm February 19, 2024 5:29pm Start: 09-17-2018 End: 09-19-2018 Gabapentin 400 mg capsule Discontinued 300 mg PO .QID 120 2 September 17, 2018 4:26pm September 19, 2018 [...] mg PO THREE TIMES A DAY 120 2 August 27, 2018 12:39pm September 17, 2018 4:27pm Comment on above: Take 1 capsule by mo [facility] three times daily for 30 days. 12 hr guaiFENesin 1200 mg extended release oral tablet (20 sources) Start: 12-07-2022 End: 05-16-2024 take 1 tablet by mouth every twelve hours Guaifenesin 1,200 mg tablet extended release 12hr Discontinued 1200 mg PO Q12H 90 3 December 07, 2022 12:00am May 16, 2024 2:55pm Smoking greater than 40 pack years Nicotine dependence, cigarettes, uncomplicated Start: 03-31-2021 End: 05-16-2024 take 1 tablet by mouth every four hours as needed for cough Guaifenesin 400 mg tablet Discontinued 400 mg PO Q4H as needed for cough, congestion 60 0 March 01, 2022 2:57pm May 16, 2024 2:51pm 24 hr isosorbide mononitrate 30 mg extended release oral tablet (20 sources) Nitrate Vasodilator Start: 06-22-2020 End: 01-08-2024 take 1 tablet by mouth once daily, then take 2 tablets by mouth every twenty-four hours Isosorbide Mononitrate 30 mg tablet extended release 24 hr Discontinued 15 mg PO DAILY 45 July 06, 2023 12:25pm January 08, 2024 8:26am Start: 06-17-2020 End: 06-22-2020 take 1 tablet by mouth once daily, then take 1 tablet by mouth every twenty-four hours Isosorbide Mononitrate 30 mg tablet extended release 24 hr Discontinued 30 mg PO DAILY 30 June 17, 2020 1:00am June 22, 2020 6:58pm levoFLOXacin 750 mg oral tablet (20 sources) Quinolone Antimicrobial Start: 12-20-2022 End: 12-27-2022 take 1 tablet by mouth every twenty-four hours Levofloxacin 750 mg tablet Discontinued 750 mg PO Q24H 7 7 0 December 20, 2022 12:00am December 26, 2022 12:00am December 27, 2022 12:03am Start: 03-31-2021 End: 06-23-2021 take 1 tablet by mouth once daily Levofloxacin 500 mg tablet Discontinued 500 mg PO DAILY 7 0 March 31, 2021 1:00am June 23, 2021 2:09pm methylPREDNISolone 4 mg oral tablet (17 sources) Corticosteroid Start: 12-25-2023 End: 05-16-2024 take 1 tablet by mouth once Methylprednisolone (Medrol (Maxwell)) 4 mg tablets,dose pack Discontinued 0 PO per package directions 21 December 25, 2023 12:00am May 16, 2024 2:51pm PO PER PKG DIR Start: 12-20-2021 End: 12-26-2021 take 1 tablet by mouth once Methylprednisolone (Medrol (Maxwell)) 4 mg tablets,dose pack Discontinued 4 mg PO per package directions 21 6 0 December 20, 2021 12:00am December 25, 2021 12:00am December 26, 2021 12:03am montelukast 10 mg oral tablet (20 sources) Leukotriene Receptor Antagonist Start: 04-08-2019 End: 03-18-2024 take 1 tablet by mouth once daily in the evening Montelukast 10 mg tablet Discontinued 10 mg PO EVERY EVENING 90 February 19, 2024 5:28pm March 18, 2024 9:30am omeprazole 20 mg delayed release oral capsule (20 sources) Proton Pump Inhibitor Start: 11-19-2020 End: 02-19-2024 take 1 capsule by mouth once daily 30 minutes before breakfast Omeprazole 20 mg capsule,delayed release(DR/EC) Discontinued 20 mg PO DAILY 90 March 03, 2021 4:37pm February 19, 2024 5:29pm Take 30 minutes before breakfast Start: 08-05-2020 End: 11-19-2020 take 1 capsule by mouth once daily 30 minutes before breakfast Omeprazole 40 mg capsule,delayed release(DR/EC) Discontinued 40 mg PO DAILY 60 August 05, 2020 12:00am November 19, 2020 4:21pm Take 30 minutes before breakfast pramipexole dihydrochloride 0.25 mg oral tablet (20 sources) Nonergot Dopamine Agonist Start: 05-13-2019 End: 11-06-2019 take 1 tablet by mouth at bedtime Pramipexole 0.5 mg tablet Discontinued 0.5 mg PO AT BEDTIME 90 May 13, 2019 5:38pm November 06, 2019 1:11pm Start: 12-31-2014 End: 07-18-2024 take 1 tablet by mouth at bedtime Pramipexole 0.25 mg tablet Discontinued 0.25 mg PO AT BEDTIME 90 January 22, 2024 12:52pm July 18, 2024 5:06pm Comment on above: Take 1 tablet by christa th daily at bedtime. prasugrel 10 mg oral tablet (20 sources) P2Y12 Platelet Inhibitor Start: 9 End: 9 take 1 tablet by mouth once daily Prasugrel Hcl (Effient) 10 mg tablet Discontinued 10 mg PO DAILY 30 September 03, 2018 3:56pm September 12, 2018 2:19pm pravastatin sodium 40 mg oral tablet (13 sources) HMG-CoA Reductase Inhibitor Start: 5 End: take 1 tablet by mouth at bedtime Pravastatin 40 MG tablet Discontinued 40 mg PO AT BEDTIME December 31, 2014 12:00am August 07, 2018 3:25pm predniSONE 10 mg oral tablet (20 sources) Start: End: Prednisone 10 mg tablet Discontinued 10 mg PO daily 30 12 June 12, 2024 1:00am June 23, 2024 1:00am June 24, 2024 12:12am take 4 tabs for three days, then 3 tabs for three days, then 2 tabs for three days, then 1 tab for 3 days Start: 06-05-2024 End: 06-12-2024 take 1 tablet by mouth once daily Prednisone 50 mg tablet Discontinued 50 mg PO daily 5 June 05, 2024 1:00am June 12, 2024 12:09pm Start: 09-25-2023 End: 11-05-2023 Prednisone 10 mg tablet Disc ontinued 10 mg PO daily 30 0 September 25, 2023 12:00am November 05, 2023 9:33am take 4 tabs for three days, then 3 tabs for three days, then 2 tabs for three days, then 1 tab for 3 days Start: 11-14-2022 End: 12-07-2022 Prednisone 10 mg tablet Disc ontinued 10 mg PO daily 30 0 November 24, 2022 12:29pm December 07, 2022 [...] tablet Disc ontinued 10 mg PO daily 30 0 March 25, 2019 1:00am April 08, 2019 3:38pm take 4 tabs for three days, then 3 tabs for three days, then 2 tabs for three days, then 1 tab for 3 days tadalafil 5 mg oral tablet (14 sources) Phosphodiesterase 5 Inhibitor Start: 08-06-2018 End: [...] above: Take 1 tablet by christa th as needed (30 minutes prior intercourse.). ticagrelor 90 mg oral tablet (14 sources) Start: 08-02-19 End: 08-09-19 take 1 tablet by mouth twice daily Ticagrelor 90 mg tablet Discontinued 90 mg PO TWICE A DAY August 06, 2018 12:00am August 08, 2018 10:42am Comment on above: Take 1 tablet by christa th twice daily. Tiotropium Yantis (13 sources) Anticholinergic Start: 02-27-20 End: 04-08-20 take 1 puff(s) by inhalation once daily Tiotropium Yantis (Spiriva Respimat) 2.5 mcg/actuation mist Discontinued 2 PUFF INHALATION DAILY February 26, 2019 12:08pm April 08, 2019 3:49pm Start: 02-26-2019 End: 04-08-2019 take 2.5 ug by inhalation once daily Tiotropium Yantis (Spiriva Respimat) 2.5 mcg/actuation mist Discontinued 2 NMA INHALATION DAILY 4 February 26, 2019 1:00am April 08, 2019 3:49pm Start: 02-26-2019 End: 04-08-2019 take 2.5 ug by inhalation once daily Tiotropium Yantis (Spiriva Respimat) 2.5 mcg/actuation mist Discontinued 2 NMA INHALATION DAILY February 26, 2019 1:00am April 08, 2019 3:49pm Start: 02-26-2019 End: 04-08-2019 take 1 puff(s) by inhalation once daily Tiotropium Yantis (Spiriva Respimat) 2.5 mcg/actuation mist Discontinued 2 PUFF INHALATION DAILY February 26, 2019 12:00am April 08, 2019 2:49pm Start: 02-26-2019 End: 04-08-2019 take 1 puff(s) by inhalation once daily Tiotropium Yantis (Spiriva Respimat) 2.5 mcg/actuation mist Discontinued 2 PUFF INHALATION DAILY February 26, 2019 1:00am April 08, 2019 3:49pm tiZANidine 4 mg oral tablet (20 sources) Central alpha-2 Adrenergic Agonist Start: 11-13-2018 [...] needed. traMADol hydrochloride 50 mg oral tablet (13 sources) Opioid Agonist Start: 9 End: 9 take 1 tablet by mouth every twelve hours as needed for pain Tramadol 50 mg tablet Discontinued 50 mg PO Q12H as needed for pain 14 0 September 11, 2018 12:00am October 10, 2018 2:28pm traZODone hydrochloride 50 mg oral tablet (20 sources) Serotonin Reuptake Inhibitor Start: 3 End: 3 take 1 tablet by mouth at bedtime Trazodone Active 0 .ROUTE .COMPLEX 90 November 08, 2022 10:11pm take 1 tablet by mouth at bedtime if needed Start: 02-18-2021 End: 11-28-2023 take 1 tablet by mouth at bedtime Trazodone 50 mg tablet Discontinued 0 .ROUTE .COMPLEX 90 November 083 11:11pm November 28, 2023 12:14pm take 1 tablet by mouth at bedtime if needed valACYclovir 1000 mg oral tablet (13 sources) Herpesvirus Nucleoside Analog DNA Polymerase Inhibitor, Herpes Simplex Virus Nucleoside Analog DNA Polymerase Inhibitor, Herpes Zoster Virus Nucleoside Analog DNA Polymerase Inhibitor Start: 09-17-2018 End: 09-24-2018 Valacyclovir 1 gram tablet Discontinued 1000 mg PO THREE TIMES A DAY 21 7 0 September 17, 2018 12:00am September 23, 2018 12:00am September 24, 2018 12:08am Start: 09-17-2018 End: 09-24-2018 take 1000 mg by mouth three times daily Valacyclovir Discontinued 1000 MG PO THREE TIMES A DAY 21 7 September 16, 2018 11:00pm September 23, 2018 11:08pm Problems Active Problems Problem Classification Problem Date Documented Da te Episodic/Chronic Abdominal pain (20 sources) Abdominal pain; Translations: [Unspecified abdominal pain] 03-04-2021 Episodic Acute bronchitis (6 sources) Acute bronchitis; Translations: [Acute bronchitis, unspecified] 09-19-2023 Episodic Anxiety disorders (15 sources) Mixed anxiety and depressive disorder; Translations: [Other specified anxiety disorders] Onset: 9 03-09-2009 Chronic Asthma (7 sources) Allergic asthma; Translations: [Unspecified asthma, uncomplicated] Onset: 6 07-09-2009 Chronic Chronic obstructive pulmonary disease and bronchiectasis (20 sources) Pulmonary emphysema; Translations: [Emphysema, unspecified] Onset: 6 Chronic Conditions associated with dizziness or vertigo (10 sources) Benign paroxysmal positional vertigo; Translations: [Benign paroxysmal vertigo, unspecified ear] 03-20-2022 Episodic Coronary atherosclerosis and other heart disease (20 sources) Coronary arteriosclerosis; Translations: [Atherosclerotic heart disease of [place] coronary artery without angina pectoris] Onset: 5 Chronic Diabetes mellitus without complication (13 sources) Hyperglycemia; Translations: [Hyperglycemia, unspecified] Onset: 5 11-13-2023 Episodic Disorders of lipid metabolism (17 sources) Hyperlipidemia; Translations: [Hyperlipidemia, unspecified] Onset: 5 Chronic Esophageal disorders (13 sources) Gastroesophageal reflux disease; Translations: [Gastro-esophageal reflux disease without esophagitis] 11-19-2020 Chronic Essential hypertension (20 sources) Essential hypertension; Translations: [Essential (primary) hypertension] Onset: 9 Chronic Hemorrhoids (1 source) Internal hemorrhoids; Translations: [Other hemorrhoids] 07-09-2009 Episodic Hyperplasia of prostate (15 sources) Benign prostatic hyperplasia; Translations: [Benign prostatic hyperplasia without lower urinary tract symptoms] Onset: 5 10-10-2018 Chronic Immunizations and screening for infectious disease (20 sources) Needs influenza immunization; Translations: [Encounter for immunization] Episodic Inflammatory conditions of male genital organs (13 sources) Epididymitis; Translations: [Epididymitis] 09-06-2018 Episodic Mood disorders (1 source) Depressive disorder; Translations: [Depression] Onset: 9 03-09-2009 Chronic Nonspecific chest pain (20 sources) Musculoskeletal chest pain; Translations: [Other chest pain] Onset: 5 09-06-2018 Episodic Osteoarthritis (20 sources) Arthritis; Translations: [Unspecified osteoarthritis, unspecified site] Onset: 6 02-23-2016 Chronic Other gastrointestinal disorders (13 sources) Dilatation of intestine; Translations: [Dilation of intestine] 09-05-2018 Episodic Other gastrointestinal disorders (6 sources) Dysphagia; Translations: [Dysphagia, unspecified] 11-13-2023 Episodic Other hereditary and degenerative nervous system conditions (15 sources) Restless legs; Translations: [Restless legs syndrome] Onset: 5 06-25-2014 Chronic Other hereditary and degenerative nervous system conditions (4 sources) Restless legs syndrome; Translations: [Restless legs syndrome (RLS)] Chronic Other lower respiratory disease (19 sources) Dyspnea; Translations: [Shortness of breath] 11-18-2019 Episodic Other male genital disorders (9 sources) Male erectile dysfunction, unspecified; Translations: [Impotence of organic origin] Onset: 5 06-25-2014 Chronic Other male genital disorders (13 sources) History of male erectile disorder; Translations: [Personal history of other diseases of male genital organs] 07-09-2019 Episodic Other male genital disorders (13 sources) Adult hydrocele; Translations: [Hydrocele, unspecified] 09-06-2018 Episodic Other non-traumatic joint disorders (13 sources) Shoulder pain; Translations: [Pain in unspecified shoulder] 11-18-2019 Episodic Other screening for suspected conditions (not mental disorders or infectious disease) (2 sources) Patient encounter status; Translations: [Encounter for screening for malignant neoplasm of colon] Onset: 9 07-09-2009 Episodic Residual codes; unclassified (13 sources) History of vaccination; Translations: [Personal history of other drug therapy] 11-19-2020 Episodic Residual codes; unclassified (13 sources) Insomnia; Translations: [Insomnia, unspecified] 02-18-2021 Episodic Respiratory failure; insufficiency; arrest (adult) (4 sources) Chronic hypoxemic respiratory failure; Translations: [Chronic respiratory failure with hypoxia] 11-26-2024 Chronic Comment on above: 2 LPM at rest, 4 LPM on exertion Substance-related disorders (20 sources) Cigarette smoker ; Translations: [Nicotine dependence, cigarettes, uncomplicated] Onset: 5 Chronic Unclassified (13 sources) neck and back pain 11-18-2019 Unclassified (1 source) Cough, unspecified; Translations: [Cough, unspecified] Onset: 5 Viral infection (20 sources) 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; 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] Episodic Past or Other Problems Problem Classification Problem Date Documented Da te Episodic/Chronic Coronary atherosclerosis and other heart disease (14 sources) Stented coronary artery; Translations: [Presence of coronary angioplasty implant and graft] Onset: 08-01-2018 Episodic Comment on above: 5.0 mm X 32 mm Evero limus-eluding united [place] chromium stent to mid RCA, and 4.0 mm X 19 mm polytetrafluoroethylene-covered stent (to seal coronary artery perforation site) Other gastrointestinal disorders (1 source) Dysphagia, unspecified; Translations: [Dysphagia, unspecified] Onset: 01-15-2024 Episodic Other upper respiratory infections (7 sources) Upper respiratory infection; Translations: [Acute upper respiratory infection, unspecified] Onset: 01-07-2024 11-05-2023 Episodic Char-; endo-; and myocarditis; cardiomyopathy (except that caused by tuberculosis or sexually transmitted disease) (14 sources) Pericardial effusion; Translations: [Cardiac tamponade] Onset: 07-29-2018 07-09-2019 Episodic Residual codes; unclassified (13 sources) History of cardiovascular surgery; Translations: [Other specified postprocedural states] Onset: 08-01-2018 10-10-2018 Episodic Residual codes; unclassified (1 source) Pain, unspecified; Translations: [Pain, unspecified] Onset: 01-07-2024 Episodic Results Test Name Value Interpretation Reference Range Facility Electrocardiogram reportOrde red By: Weston Mccarthy on 12-04-2024 EKG study [facility] [address] [place] [address] 12 Lead EKG 12/03/24 1253 MR#: [id number] Acct: [id number] Name: ANITA GUZMAN Rep #:[id number] : 1950 74 From: Weston Mccarthy MD Attending Dr: Dr. Sharon Osorio MD Status: REG CLI Ordering Dr: Sharon Osorio MD Date: 12/03/24 Location: N Sex: M C Admitted: Test Reason : CHEST PAIN Blood Pressure : */* mmHG Vent. Rate : 75 BPM Atrial Rate : 75 BPM P-R Int : 98 ms QRS Dur : 130 ms QT Int : 396 ms P-R-T Axes : 57 41 57 degrees QTcB Int : 442 ms Sinus rhythm with short KS Right bundle branch block Abnormal ECG Confirmed by WESTON MCCARTHY MD ([id number]), magazine editor ADAN MOSS ([id number]) on 12/04/2024 9:34:41 AM Referred By: Sharon Osorio Confirmed By: WESTON MCCARTHY MD 12/04/24 0934 Date _ Weston Mccarthy MD CC: Dr. Sharon Osorio MD ~ Signed [facility] Other Phone: 12 Lead EKGon 12-03-2024 12 Lead EKG [facility] [address] [place] [address] 12 Lead EKG 12/03/24 1253 MR#: [id number] Acct: [id number] Name: ANITA GUZMAN Rep #: [id number] : 1950 74 From: Weston Mccarthy MD Attending Dr: Dr. Sharon Osorio MD Status: REG CLI Ordering Dr: Sharon Osorio MD Date: 12/03/24 Location: [facility] Sex: M C Admitted: Test Reason : CHEST PAIN Blood Pressure : */* mmHG Vent. Rate : 75 BPM Atrial Rate : 75 BPM P-R Int : 98 ms QRS Dur : 130 ms QT Int : 396 ms P-R-T Axes : 57 41 57 degrees QTcB Int : 442 ms Sinus rhythm with short KS Right bundle branch block Abnormal ECG Confirmed by WESTON MCCARTHY MD ([id number]), magazine editor ADAN MOSS ([id number]) on 12/04/2024 9:34:41 AM Referred By: Sharon Osorio Confirmed By: WESTON MCCARTHY MD 12/04/24 0934 Date Weston Mccarthy MD CC: Dr. Sharon Osorio MD Signed Normal [facility] Pulmonary Visit Reporton Pulmonary Visit Report [facility] of [address] [place] [address] OFFICE VISIT Date of Service: 11/26/24 MR#: [id number] Acct: [id number] Name: ALVINANITA RODDY Rep #: [id number] : 1950 Provider: LEONIDAS Hester Age/Sex: 74/M [place] [facility] [place] Status: Signed Assessment and Plan Assessment and Plan (1) Stage 3 severe COPD by GOLD classification: Status: Chronic Plan: He does not appear to be an exacerbation of COPD today. No need for prednisone or antibiotic. Continue triple therapy, but the patient is requesting to be placed on an inhaler dosed multiple times a day. He feels his symptoms would be better controlled if he had an evening dose. He may not have the inspiratory effort needed to inhale the Trelegy. I am placing him on Breztri. He was provided with a sample in the office and written instructions on dosing for Breztri. He was reminded to rinse his mouth after each use. He did not complete PFT testing ordered at the last office visit. Contact the office for any new or worsening symptoms. An acute visit and typically be arranged within 1-2 days. Follow-up in 6 weeks. (2) Smoking greater than 40 pack years: Status: Chronic Plan: He remains appropriate for repeat LDCT which is due in December, ordered accordingly. Follow up in late December or January to discuss test results. (3) Chronic hypoxic respiratory failure: Status: Chronic Comment: 2 LPM at rest, 4 LPM on exertion Plan: Recently clarified. We were able to set the patient up with oxygen and a POC. He is using and benefitting from supplemental oxygen. I educated him on monitoring his pulse ox. He is to titrate oxygen as needed to keep saturations 89-92%. I explained the risks of hypoxia, including confusion, heart strain and early mortality. He conveys understanding. Follow up in 6 weeks. Medications: New cidzouffhv-sbsebidf-ovpfs terol 160-9-4.8 mcg/actuation (Breztri Aerosphere) 2 inhalations inhalation BID 10.7 grams 6RF Discontinued xwmiqizeefp-pukdvprou-vcv anter 200-62.5-25 mcg (Trelegy Ellipta) Discontinued Reason: Order Changed 1 inh inhalation DAILY 60 ea 2RF Plan Details Additional Comments: This note was generated with fruux dictation software. It may contain incorrect words, spelling, and punctuation that were not noted in checking the note before signing. 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 He is ambulatory. He has not recently been seen in the ED or urgent care for any respiratory illness. He has not required any antibiotics or prednisone for any breathing problems. He continues to smoke marijuana a couple times a day. He is no longer smoking cigarettes, since 2000. He is compliant with use of Trelegy [...] breath that is worse with exertion. He has a cough that is productive of thick clear-colored sputum. He denies any wheezing, chest tightness or palpitations. He has not had any fever, chills or body aches. Test results personally viewed with the patient: Walking oximetry completed on October 08, 2024. The patient was able to ambulate total of 959 feet over the course of 6 minutes. He desaturated on room air prior to ambulation. Recommendation is to utilize 2 L/min of supplemental oxygen at rest and increased to 4 L/min of supplemental oxygen on exertion. 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 Normal [facility] Absolute lymphocyte countOrd ered By: Sharon Osorio on 11-14-2024 Lymphocytes Auto (Unsp spec) [#/Vol] 0.86 10*3/uL 0.83-4.51 [facility] Absolute neutrophil countOrd ered By: Sharon Osorio on 11-14-2024 Neutrophils (Bld) [#/Vol] 7.2 10*3/uL 2.0-7.7 [facility] Anion gap in Serum or Plasma Ordered By: Sharon Osorio on 11-14-2024 Anion gap [Moles/Vol] 12 mmol/L 5-15 [facility] Automated lymphocyte count a s percentage of total leukocytesOrdered By: Jozefglen rogerscody Osorio on 11-14-2024 Lymphocytes/100 WBC Auto (Unsp spec) 9.4 % Low 19-41 [facility] BUN/creatinine ratioOrdered By: [facility] Camdencody Jimenezkaren on 11-14-2024 Urea nitrogen/Creatinine [Mass ratio] 17.0 mg/mg 10-20 [facility] Basophil percentageOrdered B y: Sharon Osorio on 11-14-2024 Basophils/100 WBC (Bld) 0.5 % 0-1 [facility] Bilirubin, totalOrdered By: Sharon Osorio on 11-14-2024 Bilirubin [Mass/Vol] 0.58 mg/dL 0.00-1.30 [facility] CBC W/Diff, Automatedon 10-17 Absolute Lymph 0.86 X10 3/uL Normal 0.83-4.51 [facility] Comment on above: Performed By: #### L 100.0100, L501.9985, L500.4050 #### [facility] [address] [place], [address] Absolute Neut 7.2 X10 3/uL Normal 2.0-7.7 [facility] Comment on above: Performed By: #### L 100.0100, L501.9985, L500.4050 #### [facility] [address] [place], [address] Basophils/100 WBC (Bld) 0.5 % Normal 0-1 [facility] Comment on above: Performed By: #### L 100.0100, L501.9985, L500.4050 #### [facility] [address] [place], [address] Eosinophils/100 WBC (Bld) 1.6 % Normal 0-5 [facility] Comment on above: Performed By: #### L 100.0100, L501.9985, L500.4050 #### [facility] [address] [place], [address] Erythrocyte distribution width (RBC) [Ratio] 13.0 % Normal 11.6-14.6 [facility] Comment on above: Performed By: #### L 100.0100, L501.9985, L500.4050 #### [facility] [address], [address] Hematocrit (Bld) [Volume fraction] 46.4 % Normal 40-54 [facility] Comment on above: Performed By: #### L 100.0100, L501.9985, L500.4050 #### [facility] [address], [address] Hemoglobin (Bld) [Mass/Vol] 15.3 g/dL Normal 13.0-16.5 [facility] Comment on above: Performed By: #### L 100.0100, L501.9985, L500.4050 #### [facility] [address], [address] IG% 0.500 Normal 0.0-0.9 [facility] Comment on above: Result Comment: IG% - Immature Granulocytes (promyelocytes, myelocytes and metamyelocytes) > 1% indicates that a LEFT SHIFT is Present. Performed By: #### L 100.0100, L501.9985, L500.4050 #### [facility] [address], [address] Lymphocytes/100 WBC (Bld) 9.4 % Low 19-41 [facility] Comment on above: Performed By: #### L 100.0100, L501.9985, L500.4050 #### [facility] [address] [place], [address] MCH (RBC) [Entitic mass] 28.8 pg Normal 27.0-32.0 [facility] Comment on above: Performed By: #### L 100.0100, L501.9985, L500.4050 #### [facility] [address] [place], [address] MCHC (RBC) [Mass/Vol] 33.0 g/dL Normal 32-36 [facility] Comment on above: Performed By: #### L 100.0100, L501.9985, L500.4050 #### [facility] [address] [place], [address] MCV (RBC) [Entitic vol] 87.2 fL Normal 80-94 [facility] Comment on above: Performed By: #### L 100.0100, L501.9985, L500.4050 #### [facility] [address] [place], [address] Monocytes/100 WBC (Bld) 9.8 % Normal 0-10 [facility] Comment on above: Performed By: #### L 100.0100, L501.9985, L500.4050 #### [facility] [address] [place], [address] Neutrophils/100 WBC (Bld) 78.2 % High 47-70 [facility] Comment on above: Performed By: #### L 100.0100, L501.9985, L500.4050 #### [facility] [address] [place], [address] Nucleated RBC (Bld) [#/Vol] 0 10*3/uL Normal 0-5 [facility] Comment on above: Performed By: #### L 100.0100, L501.9985, L500.4050 #### [facility] [address] [place], [address] Platelet mean volume (Bld) [Entitic vol] 10.7 fL Normal 6.2-12.0 [facility] Comment on above: Performed By: #### L 100.0100, L501.9985, L500.4050 #### [facility] [address] [place], [address] Platelets (Bld) [#/Vol] 268 10*3/uL Normal 150-450 [facility] Comment on above: Performed By: #### L 100.0100, L501.9985, L500.4050 #### [facility] [address] [place], [address] RBC (Bld) [#/Vol] 5.32 10*6/uL Normal 4.6-6.2 [facility] Comment on above: Performed By: #### L 100.0100, L501.9985, L500.4050 #### [facility] [address] [place], [address] RDW SD 40.5 fl Normal 35.1-43.9 [facility] Comment on above: Performed By: #### L 100.0100, L501.9985, L500.4050 #### [facility] [address] [place], [address] WBC (Bld) [#/Vol] 9.2 10*3/uL Normal 4.4-11.0 [facility] Comment on above: Performed By: #### L 100.0100, L501.9985, L500.4050 #### [facility] [address] [place], [address] Carbon dioxide, total [Moles /volume] in Central venous bloodOrdered By: Sharon Osorio on 11-14-2024 CO2 [Moles/Vol] 20.4 mmol/L Low 21.0-32.0 [facility] Chloride assayOrdered By: Delaney erikmalcolm Jimenezneymarkaren on 11-14-2024 Chloride [Moles/Vol] 104 mmol/L 98-108 [facility] Comprehensive Metabolic Prof ilon 11-14-2024 Albumin [Mass/Vol] 4.3 g/dL Normal 3.4-4.8 [facility] Comment on above: Performed By: #### L 100.0100, L501.9985, L500.4050 #### [facility] [address] [place], [address] Albumin/Globulin [Mass ratio] 1.5 {ratio} Normal 0.9-2.4 [facility] Comment on above: Performed By: #### L 100.0100, L501.9985, L500.4050 #### [facility] [address] [place], [address] ALK PHOS 85 U/L Normal 40-129 [facility] Comment on above: Performed By: #### L 100.0100, L501.9985, L500.4050 #### [facility] [address] [place], [address] ALT [Catalytic activity/Vol] 32 U/L Normal <=46 [facility] Comment on above: Performed By: #### L 100.0100, L501.9985, L500.4050 #### [facility] [address] [place], [address] AST [Catalytic activity/Vol] 37 U/L Normal <=37 [facility] Comment on above: Performed By: #### L 100.0100, L501.9985, L500.4050 #### [facility] [address] [place], [address] Bilirubin [Mass/Vol] 0.58 mg/dL Normal 0.00-1.30 [facility] Comment on above: Performed By: #### L 100.0100, L501.9985, L500.4050 #### [facility] [address] [place], [address] BUN/CRE 17.0 RATIO Normal 10-20 [facility] Comment on above: Performed By: #### L 100.0100, L501.9985, L500.4050 #### [facility] [address] [place], [address] Calcium [Mass/Vol] 9.4 mg/dL Normal 7.6-11.0 [facility] Comment on above: Performed By: #### L 100.0100, L501.9985, L500.4050 #### [facility] [address] [place], [address] Chloride [Moles/Vol] 104 mmol/L Normal 98-108 [facility] Comment on above: Performed By: #### L 100.0100, L501.9985, L500.4050 #### [facility] [address] [place], [address] CO2 [Moles/Vol] 20.4 mmol/L Low 21.0-32.0 [facility] Comment on above: Performed By: #### L 100.0100, L501.9985, L500.4050 #### [facility] [address] [place], [address] Creatinine [Mass/Vol] 1.07 mg/dL Normal 0.70-1.20 [facility] Comment on above: Performed By: #### L 100.0100, L501.9985, L500.4050 #### [facility] [address] [place], [address] GAP 12 Normal 5-15 [facility] Comment on above: Performed By: #### L 100.0100, L501.9985, L500.4050 #### [facility] [address] [place], [address] GFR/1.73 sq M.predicted among non-blacks MDRD (S/P/Bld) [Vol rate/Area] 72 mL/min/{1.73_m2} Normal >60 [facility] Comment on above: Result Comment: mL/m in/1.73m2 CKD-EPI Creatinine Equation (2020) Performed By: #### L 100.0100, L501.9985, L500.4050 #### [facility] [address] [place], [address] Globulin (S) [Mass/Vol] 2.9 g/dL Normal 2.2-4.2 [facility] Comment on above: Performed By: #### L 100.0100, L501.9985, L500.4050 #### [facility] [address] [place], [address] Glucose [Mass/Vol] 102 mg/dL High 70-99 [facility] Comment on above: Performed By: #### L 100.0100, L501.9985, L500.4050 #### [facility] [address] [place], [address] Potassium [Moles/Vol] 4.3 mmol/L Normal 3.3-5.1 [facility] Comment on above: Performed By: #### L 100.0100, L501.9985, L500.4050 #### [facility] [address] [place], [address] Sodium [Moles/Vol] 136 mmol/L Normal 133-145 [facility] Comment on above: Performed By: #### L 100.0100, L501.9985, L500.4050 #### [facility] [address] [place], [address] T PROT 7.2 g/dL Normal 5.9-8.4 [facility] Comment on above: Performed By: #### L 100.0100, L501.9985, L500.4050 #### [facility] [address] [place], [place], [address] Urea nitrogen [Mass/Vol] 18 mg/dL Normal 4-19 [facility] Comment on above: Performed By: #### L 100.0100, L501.9985, L500.4050 #### [facility] [address] [place], [place], [id number] Eosinophil percentageOrdered By: Sharon Osorio on 11-14-2024 Eosinophils/100 WBC (Bld) 1.6 % 0-5 [facility] Erythrocyte distribution wid th ratioOrdered By: erikglen rogerscody Osorio on 11-14-2024 Erythrocyte distribution width (RBC) [Ratio] 13.0 % 11.6-14.6 [facility] Erythrocyte distribution wid th standard deviationOrdered By: erikglen rogerscody Osorio on 11-14-2024 Erythrocyte distribution width (RBC) [Ratio] 40.5 fl 35.1-43.9 [facility] Glomerular filtration rate ( GFR) estimation/1.73 sq m using serum, plasma, or whole bOrdered By: Sharon Osorio on 11-14-2024 GFR/1.73 sq M.predicted among non-blacks MDRD (S/P/Bld) [Vol rate/Area] 72 mL/min/{1.73_m2} >60 [facility] Comment on above: mL/min/1.73m2 CKD-EP I Creatinine Equation (2020) Hematocrit Auto (Bld) [Volum e fraction]Ordered By: Sharon Osorio on 11-14-2024 Hematocrit (Bld) [Volume fraction] 46.4 % 40-54 [facility] Hemoglobin A1con 11-14-2024 HbA1c (Bld) [Mass fraction] 6.0 % High <=5.6 [facility] Comment on above: Result Comment: Norm al < 5.7 % Prediabetic 5.7 - 6.4 % Diabetic >or= 6.5 % Please note range changes. Performed By: #### L 100.0100, L501.9985, L500.4050 #### [facility] [place], [address] Hemoglobin A1c percentageOrd ered By: Sharon Osorio on 11-14-2024 HbA1c (Bld) [Mass fraction] 6.0 % High <5.7 [facility] Comment on above: Normal < 5.7 % Predi abetic 5.7 - 6.4 % Diabetic >or= 6.5 % Please note range changes. Hemoglobin measurementOrdere d By: Sharon Osorio on 11-14-2024 Hemoglobin (Bld) [Mass/Vol] 15.3 g/dL 13.0-16.5 [facility] Immature granulocytes/100 WB C Auto (Bld)Ordered By: Sharon Osorio on 11-14-2024 Immature granulocytes/100 WBC (Bld) 0.500 % 0.0-0.9 [facility] Comment on above: IG% - Immature Granu locytes (promyelocytes, myelocytes and metamyelocytes) > 1% indicates that a LEFT SHIFT is Present. Internal Medicine Office Vis iton 11-14-2024 Internal Medicine Office Visit [facility] [address] [place] [address] [place] [address] OFFICE VISIT Date of Service: 11/14/24 MR#: [id number] Acct: [id number] Name: ANITA GUZMAN Rep #: [id number] : 1950 Provider: Dr. Sharon street MD Age/Sex: 74/M [place] [facility] [place] Status: Signed Intake Vital Signs 05/16/24 14:25 10/08/24 12:46 11/14/24 14:28 Height 5 ft 8 in 5 ft 8 in 5 ft 8 in Weight: 165 lb BMI 25.0 BP 110/70 Blood Pressure Location Lt brachial Position Sitting Respiration 16 Pulse 68 Pulse Source Monitor Temp 97.2 F L Temp Source Temporal Pulse Oximetry (%) 99 Oxygen Delivery Method room air Intake Visit Reasons: 6 M FU Chief Complaint: FU Chronic Conditions Microbiological Lab Technician Required: No Is patient in pain?: No Allergies No Known Allergies Allergy (Verified 11/14/24 14:20) Medications ???Medication ???Instructions ???Recorded ???Confirmed ???Type aspirin 81 mg tablet,delayed 81 mg PO DAILY 08/06/18 11/14/24 H istory release (Adult Aspirin Regimen) acetaminophen 500 mg capsule 500 mg PO Q6H PRN pain #30 caps 11/14/24 Rx multivitamin (One Daily 1 tab PO DAILY 06/23/21 11/14/24 H istory Multivitamin tablet) diazepam 2 mg tablet 2 mg PO TID PRN PRN Vertigo #10 11/14/24 Rx TABLETS Disability Placard #1 ea 03/16/23 11/14/24 Rx furosemide 40 mg tablet 40 mg PO DAILY #90 tabs 04/04/23 0 11/14/24 Rx Held on 08/22/23. Instructions: blurred vision trazodone 50 mg tablet See Rx Instructions .Route 4 11/14/24 Rx .COMPLEX #90 tabs isosorbide mononitrate 30 mg 15 mg (1/2 x 30 mg) PO DAILY #45 0 01/08/24 11/14/24 Rx tablet,extended release 24 hr tabs gabapentin 400 mg capsule 400 mg PO TID #90 caps 02/19/24 Rx omeprazole 20 mg capsule,delayed 20 mg PO DAILY #90 caps 02/19/24 0 11/14/24 Rx release montelukast 10 mg tablet 10 mg PO QPM #90 tabs 03/18/24 Rx atorvastatin 40 mg tablet 40 mg PO DAILY #90 tabs 03/30/24 0 11/14/24 Rx pramipexole 0.25 mg tablet 0.25 mg PO QHS #90 tabs 07/18/24 0 11/14/24 Rx fluticasone fur. 200 mcg-umeclid 1 inh inhalation DAILY #60 ea 05/1111/14/24 Rx 62.5 mcg-vilant 25 mcg inhalat.powder (Trelegy Ellipta) cetirizine 10 mg capsule 10 mg PO HS #90 caps 08/19/24 0705/11 Rx dutasteride 0.5 mg capsule 0.5 mg PO DAILY #90 caps 09/20/24 11/14/24 Rx ferrous sulfate 325 mg (65 mg 325 mg PO QDAY 10/02/24 11/14/24 H istory iron) tablet (FeroSul) albuterol sulfate 2.5 mg/3 mL 2.5 mg (3 mL) inhalation Q4H PRN 0 10/07/24 11/14/24 Rx (0.083 %) solution for nebulization Sob /Or Wheezing #180 mL albuterol sulfate 90 mcg/actuation 2 inh inhalation Q4H PRN shortne ss 10/28/24 11/14/24 Rx aerosol inhaler (Ventolin HFA) of breath or wheezing #8.5 grams alfuzosin 10 mg tablet,extended 10 mg PO DAILY #90 tabs 10/31/24 0 11/14/24 Rx release 24 hr amlodipine 10 mg tablet 10 mg PO DAILY #90 tabs 10/31/24 0 11/14/24 Rx Have you fallen in the past year?: No PFSH Medical History (Updated 11/14/24 @ 16:[address] Sharon Osorio MD) Borderline type 2 diabetes mellitus Erectile dysfunction COPD exacerbation Health care maintenance Asthmatic bronchitis [...] Colon enlargement Atherosclerosis of coronary artery of [place] heart without angina pectoris Essential hypertension Cardiac [...] obstructive pulmonary disease) Cancer liver Social History (Reviewed 11/14/24 @ (more content not included)... Normal [facility] - Chemistry and C hemistry - challengeOrdered By: Sharon Osorio on 11-14-2024 AST [Catalytic activity/Vol] 37 U/L <38 [facility] MCV (mean corpuscular volume ) determinationOrdered By: Sharon Osorio on 11-14-2024 MCV (RBC) [Entitic vol] 87.2 fL 80-94 [facility] Mean corpuscular hemoglobin (MCH) determinationOrdered By: Sharon Osorio on 11-14-2024 MCH (RBC) [Entitic mass] 28.8 pg 27.0-32.0 [facility] Mean corpuscular hemoglobin concentration (MCHC) determinationOrdered By: Sharon Osorio on 11-14-2024 MCHC (RBC) [Mass/Vol] 33.0 g/dL 32-36 [facility] Mean platelet volume determi nationOrdered By: Sharon Osorio on 11-14-2024 Platelet mean volume (Bld) [Entitic vol] 10.7 fL 6.2-12.0 [facility] Monocyte percentageOrdered B y: Sharon Osorio on 11-14-2024 Monocytes/100 WBC (Bld) 9.8 % 0-10 [facility] Neutrophil percentageOrdered By: Sharon Osorio on 11-14-2024 Neutrophils/100 WBC (Bld) 78.2 % High 47-70 [facility] Nucleated red blood cell per centageOrdered By: Sharon Osorio on 11-14-2024 Nucleated RBC/100 WBC (Bld) [Ratio] 0 % 0-5 [facility] Platelet countOrdered By: Delaney Osorio on 11-14-2024 Platelets (Bld) [#/Vol] 268 10*3/uL 150-450 [facility] Potassium measurement (mass/ volume)Ordered By: Sharon Osorio on 11-14-2024 Potassium (Unsp spec) [Mass/Vol] 4.3 mmol/L 3.3-5.1 [facility] RBC Auto (Bld) [#/Vol]Ordere d By: Delaneyerikciprianocody Jimenezjefry on 11-14-2024 RBC (Bld) [#/Vol] 5.32 10*6/uL 4.6-6.2 [facility] Serum creatinine measurement (mass/volume)Ordered By: Sharon Osorio on 11-14-2024 Creatinine [Mass/Vol] 1.07 mg/dL 0.70-1.20 [facility] Serum globulin measurementOr dered By: Sharon Osorio on 11-14-2024 Globulin (S) [Mass/Vol] 2.9 g/dL 2.2-4.2 [facility] Serum glucose measurement (m ass/volume)Ordered By: Sharon Osorio 11-14-2024 Glucose [Mass/Vol] 102 mg/dL High 70-99 [facility] Serum or plasma alanine dominguez otransferase (ALT) measurementOrdered By: Sharon Osorio on 11-14-2024 ALT [Catalytic activity/Vol] 32 U/L <47 [facility] Serum or plasma albumin joseph urement (mass/volume)Ordered By: Sharon Osorio 11-14-2024 Albumin [Mass/Vol] 4.3 g/dL 3.4-4.8 [facility] Serum or plasma albumin/glob ulin mass ratioOrdered By: Sharon Osorio 11-14-2024 Albumin/Globulin [Mass ratio] 1.5 {ratio} 0.9-2.4 [facility] Serum or plasma alkaline krystal sphatase measurementOrdered By: Sharon Osorio 11-14-2024 ALP [Catalytic activity/Vol] 85 U/L 40-129 [facility] Serum or plasma calcium joseph urement (mass/volume)Ordered By: Sharon Osorio 11-14-2024 Calcium [Mass/Vol] 9.4 mg/dL 7.6-11.0 [facility] Serum or plasma urea nitroge n measurement (mass/volume)Ordered By: Sharon Osorio 11-14-2024 Urea nitrogen [Mass/Vol] 18 mg/dL 4-19 [facility] Sodium levelOrdered By: Jozef Osorio on 11-14-2024 Sodium [Moles/Vol] 136 mmol/L 133-145 [facility] Total proteinOrdered By: Iain Osorio on 11-14-2024 Protein [Mass/Vol] 7.2 g/dL 5.9-8.4 [facility] White blood cell (WBC) count Ordered By: Sharon Osorio on 11-14-2024 WBC (Bld) [#/Vol] 9.2 10*3/uL 4.4-11.0 [facility] 6 Minute Walk Teston 025 6 Minute Walk Test y [facility] [address] [place] [address] MR#: [id number] Acct: [id number] Name: ANITA GUZMAN Rep #: [id number] : 1950 74 From: Elgin Trujillo DO Referring Dr: Sharon Hester PLUGGER WORKER PLUGGER WORKER-C Status: REG CLI Location: PSN Date: Sex: M C PSN 6 Minute Walk Test 6 Minute Walk Test 6 Minute Walk Test: 6 Minute Walk Test PSN:6-Minute Walk Test Start: 10/08/24 12:46 Freq: Status: Active Protocol: [id number].[id number] Document 10/08/24 12:46 JR (Rec: 10/08/24 12:50 [id number]) 6 Minute Walk Test Date Performed 10/08/24 Time Performed 12:30 Height 5 ft 8 in Weight: 162 lb Weight in Pounds 162.[address]: richard Assistive device None used: Pre-test Oxygen Delivery Room Air Method Pulse Ox (%) 87 Pulse Rate (60-100 90 beats/min) Dyspnea Kwame Scale ( 3 0-10) Exertion Kwame Scale 6 (6-20) 1st minute Oxygen Flow Rate (L/ 2 min) (L/min) Oxygen Delivery Nasal Cannula Method Pulse Ox (%) 92 Pulse Rate (60-100 93 beats/min) 2nd minute Oxygen Flow Rate (L/ 2 min) (L/min) Oxygen Delivery Nasal Cannula Method Pulse Ox (%) 87 Pulse Rate (60-100 91 beats/min) 3rd minute Oxygen Flow Rate (L/ 4 min) (L/min) Oxygen Delivery Nasal Cannula Method Pulse Ox (%) 92 Pulse Rate (60-100 92 beats/min) 4th minute Oxygen Flow Rate (L/ 4 min) (L/min) Oxygen Delivery Nasal Cannula Method Pulse Ox (%) 91 Pulse Rate (60-100 94 beats/min) 5th minute Oxygen Flow Rate (L/ 4 min) (L/min) Oxygen Delivery Nasal Cannula Method Pulse Ox (%) 92 Pulse Rate (60-100 97 beats/min) 6th minute Oxygen Flow Rate (L/ 4 min) (L/min) Oxygen Delivery Nasal Cannula Method Pulse Ox (%) 90 Pulse Rate (60-100 96 beats/min) Dyspnea Kwame Scale ( 2 0-10) Exertion Kwame Scale 11 (6-20) Post-test Oxygen Flow Rate (L/ 4 min) (L/min) Oxygen Delivery Nasal Cannula Method Pulse Ox (%) 94 Pulse Rate (60-100 84 beats/min) Full Laps Walked 16 Partial Lap, Number 15 of Tiles Walked Total Distance 959 Walked (ft) 10/08/24 12:49 Cardiopulmonary Services by Anna Covarrubias Patient arrived on RA and SpO2 was 87-88% at baseline. 2L continuous added at that time. Patient began walking and at the 2min michael patient's SpO2 was 87%. 4L continuous O2 added at that time and throughout the rest of the testing. Anna Covarrubias SCRAPER LOADER OPERATOR Initialized on 10/08/24 12:49 - END OF NOTE Interpretation Interpretation: The patient ambulated 959 feet over the course of 6 minutes beginning on room air without assistive devices. Pretesting oxygen saturation was noted to be 88% on room air. 2 L/min of continuous flow oxygen was applied to commence testing. With ambulation, the gilmar oxygen saturation was 87%, requiring an escalation in flow rate to 4 L/min. Recommendations Recommendations: 2 L/min supplemental oxygen is required at rest, while 4 L/min is required with exertion. 10/10/24 1008 Date Elgin Trujillo DO CC: Date Dictated: 10/10/24 1007 Date Transcribed: 10/10/24 1007 Planer Offbearer: Dr. Elgin Trujillo, DO Signed Normal [facility] Pulmonary Visit Reporton Pulmonary Visit Report [facility] [place] [address] [place] [address] OFFICE VISIT Date of Service: 10/02/24 MR#: [id number] Acct: [id number] Name: ANITA GUZMAN Rep #: [id number] : 1950 Provider: LEONIDAS Hester Age/Sex: 74/M [place] [facility] [place] Status: Signed Assessment and Plan Assessment and [...] despite being compliant with triple therapy on Trelegy. He is no longer smoking cigarettes but [...] Additional Comments: This note was generated with Abrilation software. It may contain incorrect words, spelling, [...] of breath Chief Complaint: congest, DALY, cough Microbiological Lab Technician Required: No Accompanied by: Self Allergies No [...] tabs isosorbide (more content not included)... Normal [facility] Chest PA and Lateralon 06-05 Chest PA and Lateral [facility] [address] [place] [id number] Chest PA and Lateral MR#: [id number] Acct: [id number] Name: ANITA GUZMAN Rep #: [id number] : 1950 M 74 From: Earl borrego MD PCP: Dr. Sharon Osorio MD Status: DEP AMB Study: Chest PA and Lateral Date of Exam: 06/05/24 Exam# [id number] Ordering Dr: Sergio Ramirez PLUGGER WORKER-C PROCEDURE: CHEST PA AND LATERAL REASON FOR [...] of the left lung base. Reading Location: [id number] CC: LEONIDAS Ramirez; Dr. Sharon Osorio MD Planer Offbearer: Signed Normal [facility] No Panel InformationOrdered By: Sergio Ramirez on 06-05-2024 Influenza Types A,B Rapid (Clinic) Negative [facility] POC SARS CoV-2 Antigen Negative [facility] Urgent Care Visit Reporton 0 06-05-2024 Urgent Care Visit Report [facility] [address] [place] [address] OFFICE VISIT Date of Service: 06/05/24 MR#: [id number] Acct: [id number] Name: ANITA GUZMAN Rep #: [id number] : 1950 Provider: LEONIDAS Ramirez Age/Sex: 74/M Location[place] [facility] Status: Signed Intake Vital Signs 05/16/24 14:25 [...] Reasons: CONGESTION/DALY Chief Complaint: congest, DALY, cough Microbiological Lab Technician Required: No Is patient in pain?: No Allergies No Known Allergies Allergy (Verified 06/05/24 08:15) Have you fallen in the past year?: No Nurse's Note: cough, congest, DALY, fatigue x 1 week worsening. hx COPD, nebs at home with minimal relief, denies O2 use. current SpO2 88% on room air, pt with very tight sounding cough. 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 Normal [facility] CBC W/Diff, Automatedon 04-19 Absolute Lymph 1.22 X10 3/uL Normal 0.83-4.51 [facility] Comment on above: Performed By: #### L 100.0100, L500.4100, L501.9910, L500.4050 #### [facility] [address], [address] Absolute Neut 7.3 X10 3/uL Normal 2.0-7.7 [facility] Comment on above: Performed By: #### L 100.0100, L500.4100, L501.9910, L500.4050 #### [facility] [address] [place], [address] Basophils/100 WBC (Bld) 0.6 % Normal 0-1 [facility] Comment on above: Performed By: #### L 100.0100, L500.4100, L501.9910, L500.4050 #### [facility] [address] [place], [address] Eosinophils/100 WBC (Bld) 2.1 % Normal 0-5 [facility] Comment on above: Performed By: #### L 100.0100, L500.4100, L501.9910, L500.4050 #### [facility] [address] [place], [address] Erythrocyte distribution width (RBC) [Ratio] 13.0 % Normal 11.6-14.6 [facility] Comment on above: Performed By: #### L 100.0100, L500.4100, L501.9910, L500.4050 #### [facility] [address] [place], [address] Hematocrit (Bld) [Volume fraction] 45.7 % Normal 40-54 [facility] Comment on above: Performed By: #### L 100.0100, L500.4100, L501.9910, L500.4050 #### [facility] [address] [place], [address] Hemoglobin (Bld) [Mass/Vol] 15.4 g/dL Normal 13.0-16.5 [facility] Comment on above: Performed By: #### L 100.0100, L500.4100, L501.9910, L500.4050 #### [facility] [address] [place], [address] IG% 0.700 Normal 0.0-0.9 [facility] Comment on above: Result Comment: IG% - Immature Granulocytes (promyelocytes, myelocytes and metamyelocytes) > 1% indicates that a LEFT SHIFT is Present. Performed By: #### L 100.0100, L500.4100, L501.9910, L500.4050 #### [facility] [address] [place], [address] Lymphocytes/100 WBC (Bld) 12.6 % Low 19-41 [facility] Comment on above: Performed By: #### L 100.0100, L500.4100, L501.9910, L500.4050 #### [facility] [address] [place], [address] MCH (RBC) [Entitic mass] 29.4 pg Normal 27.0-32.0 [facility] Comment on above: Performed By: #### L 100.0100, L500.4100, L501.9910, L500.4050 #### [facility] [address] [place], [address] MCHC (RBC) [Mass/Vol] 33.7 g/dL Normal 32-36 [facility] Comment on above: Performed By: #### L 100.0100, L500.4100, L501.9910, L500.4050 #### [facility] [address] [place], [address] MCV (RBC) [Entitic vol] 87.2 fL Normal 80-94 [facility] Comment on above: Performed By: #### L 100.0100, L500.4100, L501.9910, L500.4050 #### [facility] [address] [place], [address] Monocytes/100 WBC (Bld) 9.5 % Normal 0-10 [facility] Comment on above: Performed By: #### L 100.0100, L500.4100, L501.9910, L500.4050 #### [facility] [address] [place], [address] Neutrophils/100 WBC (Bld) 74.5 % High 47-70 [facility] Comment on above: Performed By: #### L 100.0100, L500.4100, L501.9910, L500.4050 #### [facility] [address] [place], [address] Nucleated RBC (Bld) [#/Vol] 0 10*3/uL Normal 0-5 [facility] Comment on above: Performed By: #### L 100.0100, L500.4100, L501.9910, L500.4050 #### [facility] [address] [place], [address] Platelet mean volume (Bld) [Entitic vol] 10.6 fL Normal 6.2-12.0 [facility] Comment on above: Performed By: #### L 100.0100, L500.4100, L501.9910, L500.4050 #### [facility] [address] [place], [address] Platelets (Bld) [#/Vol] 258 10*3/uL Normal 150-450 [facility] Comment on above: Performed By: #### L 100.0100, L500.4100, L501.9910, L500.4050 #### [facility] [address] [place], [address] RBC (Bld) [#/Vol] 5.24 10*6/uL Normal 4.6-6.2 [facility] Comment on above: Performed By: #### L 100.0100, L500.4100, L501.9910, L500.4050 #### [facility] [address] [place], [address] RDW SD 41.6 fl Normal 35.1-43.9 [facility] Comment on above: Performed By: #### L 100.0100, L500.4100, L501.9910, L500.4050 #### [facility] [address] [place], [address] WBC (Bld) [#/Vol] 9.7 10*3/uL Normal 4.4-11.0 [facility] Comment on above: Performed By: #### L 100.0100, L500.4100, L501.9910, L500.4050 #### [facility] [address] [place], [address] Comprehensive Metabolic [facility] 05-16-2024 Albumin [Mass/Vol] 4.0 g/dL Normal 3.2-5.0 [facility] Comment on above: Performed By: #### L 100.0100, L500.4100, L501.9910, L500.4050 #### [facility] [address], [address] Albumin/Globulin [Mass ratio] 1.1 {ratio} Normal 0.9-2.4 [facility] Comment on above: Performed By: #### L 100.0100, L500.4100, L501.9910, L500.4050 #### [facility] [address] [place], [address] ALK P 72 U/L Normal 45-117 [facility] Comment on above: Performed By: #### L 100.0100, L500.4100, L501.9910, L500.4050 #### [facility] [address] [place], [address] ALT [Catalytic activity/Vol] 39 U/L Normal 16-61 [facility] Comment on above: Performed By: #### L 100.0100, L500.4100, L501.9910, L500.4050 #### [facility] [address] [place], [address] AST [Catalytic activity/Vol] 30 U/L Normal 15-37 [facility] Comment on above: Performed By: #### L 100.0100, L500.4100, L501.9910, L500.4050 #### [facility] [address], [address] Bilirubin [Mass/Vol] 0.80 mg/dL Normal 0.20-1.00 [facility] Comment on above: Result Comment: For patients on eltrombopag therapy, use of Dimension Keyes TBIL is not recommended. Performed By: #### L 100.0100, L500.4100, L501.9910, L500.4050 #### [facility] [address] [place], [address] BUN/CRE 11.2 RATIO Normal 10-20 [facility] Comment on above: Performed By: #### L 100.0100, L500.4100, L501.9910, L500.4050 #### [facility] [address] [place], [address] CA,Total 9.4 mg/dL Normal 8.5-10.1 [facility] Comment on above: Performed By: #### L 100.0100, L500.4100, L501.9910, L500.4050 #### [facility] [address], [address] Chloride [Moles/Vol] 108 mmol/L High 98-107 [facility] Comment on above: Performed By: #### L 100.0100, L500.4100, L501.9910, L500.4050 #### [facility] [address] [place], [address] CO2 [Moles/Vol] 25.0 mmol/L Normal 21.0-32.0 [facility] Comment on above: Performed By: #### L 100.0100, L500.4100, L501.9910, L500.4050 #### [facility] [address], [address] Creatinine [Mass/Vol] 1.07 mg/dL Normal 0.70-1.30 [facility] Comment on above: Result Comment: The validity of the calculated GFR GFRAA in patients over 70 years has not been determined. Clinical correlation is essential. Performed By: #### L 100.0100, L500.4100, L501.9910, L500.4050 #### [facility] [address] [place], [address] EST GFR - AA 87 mL/min Normal >60 [facility] Comment on above: Result Comment: Afri can [place] GFR Calc Performed By: #### L 100.0100, L500.4100, L501.9910, L500.4050 #### [facility] [address] [place], [address] GAP 6 Normal 5-15 [facility] Comment on above: Performed By: #### L 100.0100, L500.4100, L501.9910, L500.4050 #### [facility] [address], [address] GFR/1.73 sq M.predicted among non-blacks MDRD (S/P/Bld) [Vol rate/Area] 72 mL/min/{1.73_m2} Normal >60 [facility] Comment on above: Result Comment: Non- GFR Calc Performed By: #### L 100.0100, L500.4100, L501.9910, L500.4050 #### [facility] [address] [place], [address] Globulin (S) [Mass/Vol] 3.7 g/dL Normal 2.2-4.2 [facility] Comment on above: Performed By: #### L 100.0100, L500.4100, L501.9910, L500.4050 #### [facility] [address] [place], [address] Glucose [Mass/Vol] 120 mg/dL High 74-106 [facility] Comment on above: Result Comment: Fast ing Glucose result from 100 to 125 mg/dL suggests IMPAIRED HOMEOSTASIS per A.D.A. criteria. Performed By: #### L 100.0100, L500.4100, L501.9910, L500.4050 #### [facility] [address] [place], [address] Potassium [Moles/Vol] 4.0 mmol/L Normal 3.5-5.1 [facility] Comment on above: Performed By: #### L 100.0100, L500.4100, L501.9910, L500.4050 #### [facility] [address] [place], [address] Sodium [Moles/Vol] 139 mmol/L Normal 136-145 [facility] Comment on above: Performed By: #### L 100.0100, L500.4100, L501.9910, L500.4050 #### [facility] [address], [address] T PROT 7.7 g/dL Normal 6.4-8.2 [facility] Comment on above: Performed By: #### L 100.0100, L500.4100, L501.9910, L500.4050 #### [facility] [address] [place], [address] Urea nitrogen [Mass/Vol] 12 mg/dL Normal 7-18 [facility] Comment on above: Performed By: #### L 100.0100, L500.4100, L501.9910, L500.4050 #### [facility] [address], [address] Internal Medicine Office Vis neeru 05-16-2024 Internal Medicine Office Visit [facility] [address] [place] [address] [place] [address] OFFICE VISIT Date of Service: 05/16/24 MR#: [id number] Acct: [id number] Name: ANITA GUZMAN Rep #: [id number] : 1950 Provider: Dr. 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 Normal [facility] Lipid Profileon 05-16-2024 Cholesterol [Mass/Vol] 148 mg/dL Normal 200 [facility] Comment on above: Result Comment: <200 mg/dL Desirable 200-240 mg/dL Borderline >240 mg/dL High Risk Performed By: #### L 100.0100, L500.4100, L501.9910, L500.4050 #### [facility] [address] [place], [address] Cholesterol in HDL [Mass/Vol] 60 mg/dL Normal [facility] Comment on above: Result Comment: The drugs N-Acetylcysteine and Metamizole may falsely depress this assay. Reference Range HDL <40 mg/dL Low HDL Cholesterol HDL >or= 60 mg/dL High HDL Cholesterol Performed By: #### L 100.0100, L500.4100, L501.9910, L500.4050 #### [facility] [address] [place], [address] Cholesterol in LDL [Mass/Vol] 53 mg/dL Normal 0-130 [facility] Comment on above: Performed By: #### L 100.0100, L500.4100, L501.9910, L500.4050 #### [facility] [address] [place], [address] Cholesterol in VLDL [Mass/Vol] 35 mg/dL Normal 5-40 [facility] Comment on above: Performed By: #### L 100.0100, L500.4100, L501.9910, L500.4050 #### [facility] [address] [place], [address] Triglyceride [Mass/Vol] 175 mg/dL Normal [facility] Comment on above: Result Comment: The drugs N-Acetylcysteine and Metamizole may falsely depress this assay. Serum Triglycerides Reference Interval Normal <150 mg/dL Borderline high 150 - 199 mg/dL High 200 - 499 mg/dL Very High > or = 500 mg/dL Performed By: #### L 100.0100, L500.4100, L501.9910, L500.4050 #### [facility] [address] [place], [place], [address] PSA,Total - Annual Screenon 05-16-2024 PSA,TOT SCREEN 1.83 ng/mL Normal 0.00-4.00 [facility] Comment on above: Result Comment: This test was performed using the TPSA assay method for the [employer] chemistry system. Values obtained with different assay methods cannot be used interchangably. When changing PSA assays in the course of monitoring a patient, additional sequential testing should be carried out to confirm baseline values. Performed By: #### L 100.0100, L500.4100, L501.9910, L500.4050 #### [facility] [address] [place], [place], [address] Urgent Care Visit Reporton 0 01-07-2024 Urgent Care Visit Report [facility] [address], [address] [place], [place] [address] OFFICE VISIT Date of Service: 01/07/24 MR#: [id number] Acct: [id number] Name: ANITA GUZMAN Rep #: [id number] : 1950 Provider: LEONIDAS osborne Age/Sex: 73/M Location: [facility] Status: Signed Intake Vital Signs 12/25/23 13:56 [...] CHILLS Chief Complaint: BA, DALY, chills/sweats, fatigue Microbiological Lab Technician Required: No Is patient in pain?: No Allergies No Known Allergies Allergy (Verified 01/07/24 09:32) Have you fallen in the past year?: No Nurse's Note: BA, DALY, chills/sweats, fatigue x 48 hours. 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 Normal [facility] Low Dose CT Lung Screeningon 12-25-[address] Lung Screening [facility] [address] [place], [place] [id number] Low Dose CT Lung Screening MR#: [id number] Acct: [id number] Name: ANITA GUZMAN Rep #: [id number] : 1950 M 73 From: Marcos Benitez MD PCP: Dr. Sharon Osorio MD Status: [facility] Study: Low Dose CT Lung Screening Date of Exam: 12/24 Exam# [id number] Ordering Dr: Sharon Hester NP [id number] EXAM: CT CHEST, LUNG CANCER SCREENING WITHOUT [...] Benitez MD at 0:03 EDT , CC: LEONIDAS Hester; Dr. 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 Thick Liquid via large single sip: cup: [...] attemped:: Effortful (more content not included)... Normal [facility] Urgent Care Visit Reporton 0 12-25-2023 Urgent Care Visit Report [facility] [address], [address] [place] [address] OFFICE VISIT Date of Service: 12/25/23 MR#: [id number] Acct: [id number] Name: ANITA GUZMAN Rep #: [id number] : 1950 Provider: ELEN Castro Age/Sex: 73/M Location: [facility] Status: Signed Intake Vital Signs 12/20/23 08:30 [...] Complaint: CONGESTION SINUS COMPLAINTS HEADACHE RUNNY NOSE Microbiological Lab Technician Required: No Accompanied by: Self Is patient [...] covid and flu testing at this time. [facility] Medical History (Updated 12/25/23 @ 14:36 by [...] Colon enlargement Atherosclerosis of coronary artery of [place] heart without angina pectoris Essential hypertension Cardiac tamponade (07/29/18) Abnormal stress test ( 06/30/18) Hyperlipidemia History of depression History of anxiety History of restless legs syndrome Emphysema of lung History of erectile dysfunction Surgical History History of open reduction and internal fixation (ORIF) procedure S/P pericardiocentesis (08/01/18) Presence of stent in cor (more content not included)... Normal [facility] Absolute lymphocyte countOrd ered By: Sharon Osorio on 04-20-2023 Lymphocytes Auto (Unsp spec) [#/Vol] 1.98 10*3/uL 0.83-4.51 [facility] Basophil percentageOrdered B y: Sharon Osorio on 04-20-2023 Basophils/100 WBC (Bld) 0.5 % 0-1 [facility] Bilirubin [Mass/Vol] 0.70 mg/dL 0.20-1.00 [facility] Comment on above: For patients on eltr ombopag therapy, use of Dimension Keyes TBIL is not recommended. Chloride [Moles/Vol] 105 mmol/L 98-107 [facility] Cholesterol [Mass/Vol] 152 mg/dL <200 [facility] Comment on above: <200 mg/dL Desirable 200-240 mg/dL Borderline >240 mg/dL High Risk Eosinophils/100 WBC (Bld) 1.9 % 0-5 [facility] Glucose [Mass/Vol] 132 mg/dL 74-106 [facility] Comment on above: Fasting Glucose resu lt greater than or equal to 126 mg/dL suggests DIABETES MELLITUS per A.D.A. criteria. Neutrophils (Bld) [#/Vol] 7.5 10*3/uL 2.0-7.7 [facility] Neutrophils/100 WBC (Bld) 69.3 % 47-70 [facility] Potassium [Moles/Vol] 3.6 mmol/L 3.5-5.1 [facility] Protein [Mass/Vol] 7.9 g/dL 6.4-8.2 [facility] Sodium [Moles/Vol] 138 mmol/L 136-145 [facility] Triglyceride [Mass/Vol] 122 mg/dL <199 [facility] Comment on above: The drugs N-Acetylcy steine and Metamizole may falsely depress this assay.Serum Triglycerides Reference Interval Normal <150 mg/dL Borderline high 150 - 199 mg/dL High 200 - 499 mg/dL Very High > or = 500 mg/dL WBC (Bld) [#/Vol] 10.8 10*3/uL 4.4-11.0 [facility] Blood erythrocytes count (nu mber/volume)Ordered By: Sharon Osorio on 04-20-2023 RBC (Bld) [#/Vol] 5.39 10*6/uL 4.6-6.2 [facility] Blood hemoglobin measurement (mass/volume)Ordered By: Sharon Osorio on 04-20-2023 Hemoglobin (Bld) [Mass/Vol] 16.2 g/dL 13.0-16.5 [facility] Blood lymphocytes/100 leukoc ytesOrdered By: Sharon Osorio on 04-20-2023 Lymphocytes/100 WBC (Bld) 18.4 % 19-41 [facility] Blood monocytes/100 leukocyt esOrdered By: [facility] on 04-20-2023 Monocytes/100 WBC (Bld) 9.3 % 0-10 [facility] Blood platelet mean volumeOr dered By: [facility] Tonykaren on 04-20-2023 Platelet mean volume (Bld) [Entitic vol] 10.3 fL 6.2-12.0 [facility] Determination of erythrocyte mean corpuscular volume (MCV)Ordered By: [facility] Tonykaren on 04-20-2023 MCV (RBC) [Entitic vol] 88.9 fL 80-94 [facility] Hematocrit Auto (Bld) [Volum e fraction]Ordered By: [facility] Tonykaren on 04-20-2023 Hematocrit (Bld) [Volume fraction] 47.9 % 40-54 [facility] - Chemistry and C hemistry - challengeOrdered By: [facility] Tonykaren on 04-20-2023 ALP [Catalytic activity/Vol] 75 U/L 45-117 [facility] ALT [Catalytic activity/Vol] 42 U/L 16-61 [facility] CO2 [Moles/Vol] 25.0 mmol/L 21.0-32.0 [facility] Globulin (S) [Mass/Vol] 3.8 g/dL 2.2-4.2 [facility] Urea nitrogen/Creatinine [Mass ratio] 13.6 mg/mg 10-20 [facility] - Hematology and Cell countsOrdered By: [facility] Tonykaren on 04-20-2023 Erythrocyte distribution width (RBC) [Entitic vol] 41.0 fL 35.1-43.9 [facility] Erythrocyte distribution width (RBC) [Ratio] 12.7 % 11.6-14.6 [facility] Immature granulocytes/100 WBC (Bld) 0.600 % 0.0-0.9 [facility] Comment on above: IG% - Immature Granu locytes (promyelocytes, myelocytes and metamyelocytes) > 1% indicates that a LEFT SHIFT is Present. MCH (RBC) [Entitic mass] 30.1 pg 27.0-32.0 [facility] Nucleated RBC/100 WBC (Bld) [Ratio] 0 % 0-5 [facility] Auto (RBC) [Mass/Vol]Or dered By: Sharon Osorio on 04-20-2023 MCHC (RBC) [Mass/Vol] 33.8 g/dL 32-36 [facility] No Panel InformationOrdered By: Sharon Osorio on 04-20-2023 Estimated GFR (MDRD) Amer 78 mL/min >60 [facility] Comment on above: GFR Calc Estimated GFR (MDRD) Non-Af Amer 64 mL/min >60 [facility] Comment on above: Non- GFR Calc Prostate Specific Antigen Screen 1.61 ng/mL 0.00-4.00 [facility] Comment on above: This test was perfor med using the TPSA assay method for [employer] chemistry system. Values obtained with differentassay methods cannot be used interchangably.When changing PSA assays in the course of monitoring apatient, additional sequential testing should be carriedout to confirm baseline values. Thyroid Stimulating Hormone (TSH) 3.15 uIU/mL 0.358-3.74 [facility] Platelets bldOrdered By: Iain Osorio on 04-20-2023 Platelets (Bld) [#/Vol] 284 10*3/uL 150-450 [facility] Serum or plasma albumin joseph urement (mass/volume)Ordered By: Sharon Osorio on 04-20-2023 Albumin [Mass/Vol] 4.1 g/dL 3.2-5.0 [facility] Serum or plasma albumin/glob ulin mass ratioOrdered By: Sharon Osorio on 04-20-2023 Albumin/Globulin [Mass ratio] 1.1 {ratio} 0.9-2.4 [facility] Serum or plasma calcium joseph urement (mass/volume)Ordered By: Sharon Osorio on 04-20-2023 Calcium [Mass/Vol] 8.9 mg/dL 8.5-10.1 [facility] Serum or plasma cholesterol in HDL measurement (mass/volume)Ordered By: Sharon Osorio on 04-20-2023 Cholesterol in HDL [Mass/Vol] 53 mg/dL >40 [facility] Comment on above: The drugs N-Acetylcy steine and Metamizole may falsely depress this assay. Reference Range HDL <40 mg/dL Low HDL Cholesterol HDL >or= 60 mg/dL High HDL Cholesterol Serum or plasma cholesterol in VLDL measurement (mass/volume)Ordered By: Sharon Osorio on 04-20-2023 Cholesterol in VLDL [Mass/Vol] 24 mg/dL 5-40 [facility] Serum or plasma creatinine m easurement (mass/volume)Ordered By: Sharon Osorio on 04-20-2023 Creatinine [Mass/Vol] 1.18 mg/dL 0.70-1.30 [facility] Comment on above: The validity of the calculated GFR & GFRAA in patients over 70 years has not been determined. Clinical correlation is essential. Serum or plasma low density lipoprotein (LDL) cholesterol measurement (mass/volume)Ordered By: Sharon Osorio on 04-20-2023 Cholesterol in LDL [Mass/Vol] 75 mg/dL 0-130 [facility] Serum or plasma urea nitroge n measurement (mass/volume)Ordered By: Sharon Osorio on 04-20-2023 Urea nitrogen [Mass/Vol] 16 mg/dL 7-18 [facility] Thin prep Papanicolaou smear with manual screeningOrdered By: Sharon Osorio on 04-20-2023 Thin prep Papanicolaou smear with manual screening 31 U/L 15-37 [facility] Thin prep Papanicolaou smear with manual screening 8 5-15 [facility] Gram stain for investigation of transfusion reactionOrdered By: Sharon Hester on 12-12-2022 Microscopic observation Gram stain Nom (Unsp spec) [facility] Absolute lymphocyte counton 03-12-2022 Lymphocytes Auto (Unsp spec) [#/Vol] 1.05 10*3/uL 0.83-4.51 [facility] Work Phone: Basophil percentageon 2021 Basophils/100 WBC (Bld) 0.5 % 0-1 [facility] Work Phone: Chloride [Moles/Vol] 112 mmol/L 98-107 [facility] Work Phone: Eosinophils/100 WBC (Bld) 1.8 % 0-5 [facility] Work Phone: Glucose [Mass/Vol] 115 mg/dL 74-106 [facility] Work Phone: Comment on above: Fasting Glucose resu lt from 100 to 125 mg/dL suggests IMPAIRED HOMEOSTASIS per A.D.A. criteria. Neutrophils (Bld) [#/Vol] 5.8 10*3/uL 2.0-7.7 [facility] Work Phone: Neutrophils/100 WBC (Bld) 73.2 % 47-70 [facility] Work Phone: Potassium [Moles/Vol] 4.2 mmol/L 3.5-5.1 [facility] Work Phone: Sodium [Moles/Vol] 141 mmol/L 136-145 [facility] Work Phone: WBC (Bld) [#/Vol] 7.9 10*3/uL 4.4-11.0 [facility] Work Phone: [phone] Blood erythrocytes count (nu mber/volume)on 03-12-2022 RBC (Bld) [#/Vol] 4.68 10*6/uL 4.6-6.2 [facility] Work Phone: Blood hemoglobin measurement (mass/volume)on 03-12-2022 Hemoglobin (Bld) [Mass/Vol] 14.4 g/dL 13.0-16.5 [facility] Work Phone: Blood lymphocytes/100 leukoc yteson 03-12-2022 Lymphocytes/100 WBC (Bld) 13.4 % 19-41 [facility] Work Phone: Blood monocytes/100 leukocyt eson 03-12-2022 Monocytes/100 WBC (Bld) 10.6 % 0-10 [facility] Work Phone: Blood platelet mean volumeon 03-12-2022 Platelet mean volume (Bld) [Entitic vol] 9.9 fL 6.2-12.0 [facility] Work Phone: Determination of erythrocyte mean corpuscular volume (MCV)on 03-12-2022 MCV (RBC) [Entitic vol] 92.1 fL 80-94 [facility] Work Phone: Hematocrit Auto (Bld) [Volum e fraction]on 03-12-2022 Hematocrit (Bld) [Volume fraction] 43.1 % 40-54 [facility] Work Phone: INR in Blood by Coagulation assayon 03-12-2022 INR Coag (Bld) [Relative time] 1.1 {INR} [facility] Work Phone: Laboratory - Chemistry and C hemistry - challengeon 03-12-2022 CO2 [Moles/Vol] 23.0 mmol/L 21.0-32.0 [facility] Work Phone: Urea nitrogen/Creatinine [Mass ratio] 28.2 mg/mg 10-20 [facility] Work Phone: Laboratory - Coagulationon 1 05-12-2021 aPTT Coag (Bld) [Time] 29.0 s 24.1-36.2 [facility] Work Phone: PT Coag (PPP) [Time] 14.1 s 11.7-14.9 [facility] Work Phone: Laboratory - Hematology and Cell countson 03-12-2022 Erythrocyte distribution width (RBC) [Entitic vol] 46.4 fL 35.1-43.9 [facility] Work Phone: Erythrocyte distribution width (RBC) [Ratio] 13.7 % 11.6-14.6 [facility] Work Phone: Immature granulocytes/100 WBC (Bld) 0.500 % 0.0-0.9 [facility] Work Phone: Comment on above: IG% - Immature Granu locytes (promyelocytes, myelocytes and metamyelocytes) > 1% indicates that a LEFT SHIFT is Present. MCH (RBC) [Entitic mass] 30.8 pg 27.0-32.0 [facility] Work Phone: Nucleated RBC/100 WBC (Bld) [Ratio] 0 % 0-5 [facility] Work Phone: MCHC Auto (RBC) [Mass/Vol]on 03-12-2022 MCHC (RBC) [Mass/Vol] 33.4 g/dL 32-36 [facility] Work Phone: No Panel Informationon 03-12 Estimated Creatinine Clearance Calc 69.18 ml/min [facility] Work Phone: Estimated GFR (MDRD) Amer 103 mL/min >60 [facility] Work Phone: Comment on above: GFR Calc Estimated GFR (MDRD) Non-Af Amer 86 mL/min >60 [facility] Work Phone: Comment on above: Non- GFR Calc Troponin I High Sensitivity 12 pg/mL 3.0-78.0 [facility] Work Phone: Comment on above: Please Note: New Jennifer t Units and Gender Specific Reference Ranges. For more information see Policy Stat Procedure Keyes High Sensitivity Troponin (TNIH) and attachments. Platelets bldon 03-12-2022 Platelets (Bld) [#/Vol] 224 10*3/uL 150-450 [facility] Work Phone: Serum or plasma calcium joseph urement (mass/volume)on 03-12-2022 Calcium [Mass/Vol] 9.3 mg/dL 8.5-10.1 [facility] Work Phone: Serum or plasma creatinine m easurement (mass/volume)on 03-12-2022 Creatinine [Mass/Vol] 0.92 mg/dL 0.70-1.30 [facility] Work Phone: Comment on above: The validity of the calculated GFR & GFRAA in patients over 70 years has not been determined. Clinical correlation is essential. Serum or plasma urea nitroge n measurement (mass/volume)on 03-12-2022 Urea nitrogen [Mass/Vol] 26 mg/dL 7-18 [facility] Work Phone: Thin prep Papanicolaou smear with manual screeningon 03-12-2022 Thin prep Papanicolaou smear with manual screening 6 5-15 [facility] Work Phone: Absolute lymphocyte counton 03-01-2022 Lymphocytes Auto (Unsp spec) [#/Vol] 1.15 10*3/uL 0.83-4.51 [facility] Work Phone: Basophil percentageon 2021 Basophils/100 WBC (Bld) 0.5 % 0-1 [facility] Work Phone: Bilirubin [Mass/Vol] 0.70 mg/dL 0.20-1.00 [facility] Work Phone: Comment on above: For patients on eltr ombopag therapy, use of Dimension Keyes TBIL is not recommended. Chloride [Moles/Vol] 105 mmol/L 98-107 [facility] Work Phone: Cholesterol [Mass/Vol] 144 mg/dL <200 [facility] Work Phone: Comment on above: <200 mg/dL Desirable 200-240 mg/dL Borderline >240 mg/dL High Risk Eosinophils/100 WBC (Bld) 2.1 % 0-5 [facility] Work Phone: Glucose [Mass/Vol] 106 mg/dL 74-106 [facility] Work Phone: Comment on above: Fasting Glucose resu lt from 100 to 125 mg/dL suggests IMPAIRED HOMEOSTASIS per A.D.A. criteria. Neutrophils (Bld) [#/Vol] 6.4 10*3/uL 2.0-7.7 [facility] Work Phone: Neutrophils/100 WBC (Bld) 72.2 % 47-70 [facility] Work Phone: Potassium [Moles/Vol] 3.9 mmol/L 3.5-5.1 [facility] Work Phone: Protein [Mass/Vol] 8.0 g/dL 6.4-8.2 [facility] Work Phone: Sodium [Moles/Vol] 137 mmol/L 136-145 [facility] Work Phone: [phone] Triglyceride [Mass/Vol] 115 mg/dL <199 [facility] Work Phone: Comment on above: The drugs N-Acetylcy steine and Metamizole may falsely depress this assay.Serum Triglycerides Reference Interval Normal <150 mg/dL Borderline high 150 - 199 mg/dL High 200 - 499 mg/dL Very High > or = 500 mg/dL WBC (Bld) [#/Vol] 8.9 10*3/uL 4.4-11.0 [facility] Work Phone: Blood erythrocytes count (nu mber/volume)on 03-01-2022 RBC (Bld) [#/Vol] 5.10 10*6/uL 4.6-6.2 [facility] Work Phone: Blood hemoglobin measurement (mass/volume)on 03-01-2022 Hemoglobin (Bld) [Mass/Vol] 15.0 g/dL 13.0-16.5 [facility] Work Phone: Blood lymphocytes/100 leukoc yteson 03-01-2022 Lymphocytes/100 WBC (Bld) 13.0 % 19-41 [facility] Work Phone: Blood monocytes/100 leukocyt eson 03-01-2022 Monocytes/100 WBC (Bld) 11.5 % 0-10 [facility] Work Phone: Blood platelet mean volumeon 03-01-2022 Platelet mean volume (Bld) [Entitic vol] 10.3 fL 6.2-12.0 [facility] Work Phone: Determination of erythrocyte mean corpuscular volume (MCV)on 03-01-2022 MCV (RBC) [Entitic vol] 89.2 fL 80-94 [facility] Work Phone: Hematocrit Auto (Bld) [Volum e fraction]on 03-01-2022 Hematocrit (Bld) [Volume fraction] 45.5 % 40-54 [facility] Work Phone: Iron measurement (mass/mass) on 03-01-2022 Iron (Unsp spec) [Mass/Mass] 88 ug/dL 65-175 [facility] Work Phone: Laboratory - Chemistry and C hemistry - challengeon 03-01-2022 ALP [Catalytic activity/Vol] 86 U/L 45-117 [facility] Work Phone: ALT [Catalytic activity/Vol] 54 U/L 16-61 [facility] Work Phone: CO2 [Moles/Vol] 23.0 mmol/L 21.0-32.0 [facility] Work Phone: Globulin (S) [Mass/Vol] 4.1 g/dL 2.2-4.2 [facility] Work Phone: Urea nitrogen/Creatinine [Mass ratio] 18.1 mg/mg 10-20 [facility] Work Phone: Laboratory - Hematology and Cell countson 03-01-2022 Erythrocyte distribution width (RBC) [Entitic vol] 44.2 fL 35.1-43.9 [facility] Work Phone: Erythrocyte distribution width (RBC) [Ratio] 13.5 % 11.6-14.6 [facility] Work Phone: Immature granulocytes/100 WBC (Bld) 0.700 % 0.0-0.9 [facility] Work Phone: Comment on above: IG% - Immature Granu locytes (promyelocytes, myelocytes and metamyelocytes) > 1% indicates that a LEFT SHIFT is Present. MCH (RBC) [Entitic mass] 29.4 pg 27.0-32.0 [facility] Work Phone: Nucleated RBC/100 WBC (Bld) [Ratio] 0 % 0-5 [facility] Work Phone: MCHC Auto (RBC) [Mass/Vol]on 03-01-2022 MCHC (RBC) [Mass/Vol] 33.0 g/dL 32-36 [facility] Work Phone: No Panel Informationon 03-01 Estimated GFR (MDRD) Amer 109 mL/min >60 [facility] Work Phone: Comment on above: GFR Calc Estimated GFR (MDRD) Non-Af Amer 90 mL/min >60 [facility] Work Phone: Comment on above: Non- GFR Calc Prostate Specific Antigen Screen 1.19 ng/mL 0.00-4.00 [facility] Work Phone: Comment on above: This test was perfor med using the TPSA assay method for [employer] chemistry system. Values obtained with differentassay methods cannot be used interchangably.When changing PSA assays in the course of monitoring apatient, additional sequential testing should be carriedout to confirm baseline values. Thyroid Stimulating Hormone (TSH) 3.85 uIU/mL 0.358-3.74 [facility] Work Phone: Total Iron Binding Capacity 306 ug/dL 250-450 [facility] Work Phone: Platelets bldon 03-01-2022 Platelets (Bld) [#/Vol] 293 10*3/uL 150-450 [facility] Work Phone: Serum or plasma albumin joseph urement (mass/volume)on 03-01-2022 Albumin [Mass/Vol] 3.9 g/dL 3.2-5.0 [facility] Work Phone: Serum or plasma albumin/glob ulin mass ratioon 03-01-2022 Albumin/Globulin [Mass ratio] 1.0 {ratio} 0.9-2.4 [facility] Work Phone: Serum or plasma calcium joseph urement (mass/volume)on 03-01-2022 Calcium [Mass/Vol] 9.2 mg/dL 8.5-10.1 [facility] Work Phone: Serum or plasma cholesterol in HDL measurement (mass/volume)on 03-01-2022 Cholesterol in HDL [Mass/Vol] 65 mg/dL >40 [facility] Work Phone: Comment on above: The drugs N-Acetylcy steine and Metamizole may falsely depress this assay. Reference Range HDL <40 mg/dL Low HDL Cholesterol HDL >or= 60 mg/dL High HDL Cholesterol Serum or plasma cholesterol in VLDL measurement (mass/volume)on 03-01-2022 Cholesterol in VLDL [Mass/Vol] 23 mg/dL 5-40 [facility] Work Phone: Serum or plasma creatinine m easurement (mass/volume)on 03-01-2022 Creatinine [Mass/Vol] 0.88 mg/dL 0.70-1.30 [facility] Work Phone: Comment on above: The validity of the calculated GFR & GFRAA in patients over 70 years has not been determined. Clinical correlation is essential. Serum or plasma ferritin samina surement (mass/volume)on 03-01-2022 Ferritin [Mass/Vol] 161 ng/mL 26-388 [facility] Work Phone: Serum or plasma iron saturat ion measurement (mass fraction)on 03-01-2022 Iron saturation [Mass fraction] 28.8 % 15.0-55.0 [facility] Work Phone: Serum or plasma low density lipoprotein (LDL) cholesterol measurement (mass/volume)on 03-01-2022 Cholesterol in LDL [Mass/Vol] 56 mg/dL 0-130 [facility] Work Phone: Serum or plasma urea nitroge n measurement (mass/volume)on 03-01-2022 Urea nitrogen [Mass/Vol] 16 mg/dL 7-18 [facility] Work Phone: Thin prep Papanicolaou smear with manual screeningon 03-01-2022 Thin prep Papanicolaou smear with manual screening 43 U/L 15-37 [facility] Work Phone: Thin prep Papanicolaou smear with manual screening 9 5-15 [facility] Work Phone: No Panel Informationon 12-24 POC SARS CoV-2 Antigen Negative [facility] Work Phone: No Panel Informationon 12-20 POC SARS CoV-2 Antigen Positive [facility] Work Phone: Basophil percentageon 2021 Bilirubin [Mass/Vol] 0.80 mg/dL 0.20-1.00 [facility] Work Phone: Comment on above: For patients on eltr ombopag therapy, use of Dimension Keyes TBIL is not recommended. Cholesterol [Mass/Vol] 125 mg/dL <200 [facility] Work Phone: Comment on above: <200 mg/dL Desirable 200-240 mg/dL Borderline >240 mg/dL High Risk Protein [Mass/Vol] 7.9 g/dL 6.4-8.2 [facility] Work Phone: Triglyceride [Mass/Vol] 47 mg/dL [facility] Work Phone: Comment on above: The drugs N-Acetylcy steine and Metamizole may falsely depress this assay.Serum Triglycerides Reference Interval Normal <150 mg/dL Borderline high 150 - 199 mg/dL High 200 - 499 mg/dL Very High > or = 500 mg/dL Direct bilirubinon 2 Bilirubin.direct [Mass/Vol] 0.21 mg/dL 0.00-0.30 [facility] Work Phone: Laboratory - Chemistry and C hemistry - challengeon 07-05-2021 ALP [Catalytic activity/Vol] 87 U/L 45-117 [facility] Work Phone: ALT [Catalytic activity/Vol] 56 U/L 16-61 [facility] Work Phone: Globulin (S) [Mass/Vol] 3.8 g/dL 2.2-4.2 [facility] Work Phone: Serum or plasma albumin joseph urement (mass/volume)on 07-05-2021 Albumin [Mass/Vol] 4.1 g/dL 3.2-5.0 [facility] Work Phone: Serum or plasma cholesterol in HDL measurement (mass/volume)on 07-05-2021 Cholesterol in HDL [Mass/Vol] 58 mg/dL [facility] Work Phone: Comment on above: The drugs N-Acetylcy steine and Metamizole may falsely depress this assay. Reference Range HDL <40 mg/dL Low HDL Cholesterol HDL >or= 60 mg/dL High HDL Cholesterol Serum or plasma cholesterol in VLDL measurement (mass/volume)on 07-05-2021 Cholesterol in VLDL [Mass/Vol] 9 mg/dL 5-40 [facility] Work Phone: Serum or plasma low density lipoprotein (LDL) cholesterol measurement (mass/volume)on 07-05-2021 Cholesterol in LDL [Mass/Vol] 58 mg/dL 0-130 [facility] Work Phone: Thin prep Papanicolaou smear with manual screeningon 07-05-2021 Thin prep Papanicolaou smear with manual screening 43 U/L 15-37 [facility] Work Phone: Basic Panelon 08-04-2018 Creatinine mass conc 0.85 mg/dL Normal 0.67-1.17 [facility] Comment on above: Performed By: #### C BC1 #### [place] [address] Anion gap molar conc 13 mmol/L Normal 8-16 [facility] Comment on above: Performed By: #### C BC1 #### [place] [address] CO2 molar conc 22 mmol/L Normal 21-32 [facility] Comment on above: Performed By: #### C BC1 #### [facility] [address] [place] [address] Glucose mass conc 102 mg/dL High 70-99 [facility] Comment on above: Performed By: #### C BC1 #### [facility] [address] [place] [address] Urea nitrogen mass conc 17 mg/dL Normal 7-18 [facility] Comment on above: Performed By: #### C BC1 #### [facility] [address] [place] [address] Calcium mass conc 8.9 mg/dL Normal 8.5-10.1 [facility] Comment on above: Performed By: #### C BC1 #### [facility] [address] [place] [address] Chloride molar conc 103 mmol/L Normal 98-107 [facility] Comment on above: Performed By: #### C BC1 #### [facility] [address] [place] [address] Potassium molar conc 3.9 mmol/L Normal 3.5-5.1 [facility] Comment on above: Performed By: #### C BC1 #### [facility] [address] [place] [address] Sodium molar conc 134 mmol/L Low 136-145 [facility] Comment on above: Performed By: #### C BC1 #### [facility] [address] [place] [address] Hemogramon 08-04-2018 Erythrocyte distribution width Ratio (RBC) 13.7 % Normal 11.6-14.4 [facility] Comment on above: Performed By: #### C BC1 #### [facility] [address] [place] [address] Hematocrit Volume Fraction (Bld) 37.2 % Low 40.1-51.0 [facility] Comment on above: Performed By: #### C BC1 #### [facility] [address] [place] [address] Hemoglobin mass conc (Bld) 12.5 g/dL Low 13.7-17.5 [facility] Comment on above: Performed By: #### C BC1 #### [facility] [address] [place] [address] MCH Entitic mass (RBC) 29.8 pg Normal 25.7-32.2 [facility] Comment on above: Performed By: #### C BC1 #### [facility] [address] [place] [address] MCHC mass conc (RBC) 33.6 % Normal 32.3-36.5 [facility] Comment on above: Performed By: #### C BC1 #### [facility] [address] [place] [address] MCV Entitic volume (RBC) 88.8 fL Normal 83.2-95.6 [facility] Comment on above: Performed By: #### C BC1 #### [facility] [address] [place] [address] Platelet mean volume Entitic volume (Bld) 10.1 fL Normal 8.7-12.0 [facility] Comment on above: Performed By: #### C BC1 #### [facility] [address] [place] [address] Platelets #/vol (Bld) 246 thou/cmm Normal 141-[address] [facility] Comment on above: Performed By: #### C BC1 #### [place] [address] RBC #/vol (Bld) 4.19 mil/cmm Low 4.63-6.08 [facility] Comment on above: Performed By: #### C BC1 #### [place] [address] RDW SD 44.9 fl Normal 36.1-45.8 [facility] Comment on above: Performed By: #### C BC1 #### [place] [address] WBC #/vol (Bld) 8.24 thou/cmm Normal 4.23-9.07 [facility] Comment on above: Performed By: #### C BC1 #### [place] [address] MDRD GFRon 08-04-2018 GFR/1.73 sq M predicted among non-blacks MDRD vol rate/area (S/P/Bld) mL/min/{1.73_m2} Normal >60mL/min/1 .73m2 [facility] Comment on above: Result Comment: If t he patient is , multiply the result by 1.210. Performed By: #### G FR #### [place] [address] PROGRESSon 08-04-2018 Protein mass conc HNO ID: [id number] Author: Sundeep Weldon Service: Cardiovascular Medicine Author Type: Resident Type: Progress Notes Filed: 08/04/2018 8:48 AM Note Text: ----- Attestation signed by Jia Bang at 08/04/2018 [...] for discharge later today. Jia Bang MD ----- Cardiovascular Intensive Care Progress Note August 04, 2018 Patient Name: Anita Guzman Patient Location: [id number]* Admission Date: 08/01/2018 Length of Stay: 3 [...] for which she presented to [facility] on 06/30/18. Diagnostic catheterization revealed 75% [...] (HCC) MINOR BLACK OUT NUMBNESS LEFT SIDE No [...] mouth three times daily for 30 days. cyrxzqkfrdi-hnblrrbfu-vcn anter (TRELEGY ELLIPTA) 100-62.5-25 mcg dsdv Inhale 1 [...] 136/74 Pulse: 88 79 85 93 Resp: 20 27 20 22 Temp: 37.3 ?C (99.1 ?F) TempSrc: Temporal [...] 08/03/18 1723 sodium chloride 0.65 % 2 [place] (AYR, OCEAN) 2 [place] EACH NOSTRIL PRN Seferino Lorraine tiotropium 2.5 mcg/actuation 2 Puff (SPIRIVA RESPIMAT) 2 Puff INHALATION DAILY Alma (Res) Beto 2 Puff at 08/03/18 0936 fluticasone-vilanterol 100-25 mcg/dose 1 Inhalation (BREO ELLIPTA) 1 Inhalation INHALATION DAILY Alma (Res) Beto 1 Inhalation at 08/03/18 0935 perflutren lipid microspheres 1.1 mg/mL 1.3 mL injection (DEFINITY) 1.3 mL INTRAVENOUS DIRECTED PRN Martin Garcia ([place]) MD Pamela citalopram 20 mg tab(s) (CeleXA) [...] ORAL DAILY Seferino Lorraine 81 mg at 08/03/18 0933 atorvastatin 40 mg tab(s) (LIPITOR) 40 mg [...] Recent Labs 08/04/18 0500 08/03/18 0530 08/02/18 0519 08/01/18 1130 07/30/18 1345 WBC 8.24 11.97* 14.62* 9.17* 6.22 HB 12.5* 11.1* 12.6* 12.3* 12.5* HCT 37.2* 34.1* 37.9* 38.2* 38.4* PLT 246 202 266 223 244 MCV 88.8 90.2 89.6 90.3 90.4 RDWCV -- -- -- -- 13.6 COAG: No results for input(s): APTT, INR in the last 168 hours. BMP: Recent Labs 08/04/18 0500 08/03/18 0530 08/02/18 0519 08/01/18 1130 GLUC 102* 102* 125* 102* NA 134* 136 135* 140 K 3.9 4.0 4.1 4.1 CHLOR 103 106 105 108* CO2 22 25 25 25 ANION 13 9 9 11 BUN 17 17 15 17 CREAT 0.85 0.90 0.99 0.85 CHEM: Recent Labs 08/04/18 0500 08/03/18 0530 08/02/18 0519 08/01/18 1130 CA 8.9 8.4* 8.7 8.3* MG [...] Intake/Output Summary (Last 24 hours) at 08/04/2018 0729 Last data filed at 08/04/2018 0500 Gross per 24 hour Intake 380 ml Output 2405 ml Net -202 ml Serum creatinine: 0.85 mg/dL 08/04/18 0500 [...] Patient loaded with ticagrelor 180mg in the analyst microbiology lab? - Troponin downtrending 4.48 -> 4.16. Can [...] effusion. Signed: Sundeep Weldon DO, PGY-1 Pager: [phone] [facility] Date: August 04, 2018 Time: 7:29 AM Recommendations are not finalized until co-signed by Staff physician. Normal [facility] Basic Panelon 08-03-2018 Creatinine mass conc 0.90 mg/dL Normal 0.67-1.17 [facility] Comment on above: Performed By: #### C BC1 #### [facility] [address] [place] [address] Anion gap molar conc 9 mmol/L Normal 8-16 [facility] Comment on above: Performed By: #### C BC1 #### [facility] [address] [place] [address] CO2 molar conc 25 mmol/L Normal 21-32 [facility] Comment on above: Performed By: #### C BC1 #### [facility] [address] [place] [address] Urea nitrogen mass conc 17 mg/dL Normal 7-18 [facility] Comment on above: Performed By: #### C BC1 #### [facility] [address] [place] [address] Calcium mass conc 8.4 mg/dL Low 8.5-10.1 [facility] Comment on above: Performed By: #### C BC1 #### [place] [address] Glucose mass conc 102 mg/dL High 70-99 [facility] Comment on above: Performed By: #### C BC1 #### [facility] [address] [place], [place] [address] Chloride molar conc 106 mmol/L Normal 98-107 [facility] Comment on above: Performed By: #### C BC1 #### [facility] [address] [place], [place] [address] Potassium molar conc 4.0 mmol/L Normal 3.5-5.1 [facility] Comment on above: Performed By: #### C BC1 #### [facility] [address] [place], [place] [address] Sodium molar conc 136 mmol/L Normal 136-145 [facility] Comment on above: Performed By: #### C BC1 #### [facility] [address] [place] [address] CASE MANAGEMon 08-03-2018 CASE MANAGEM HNO ID: [id number] Author: Dottie (Rn) JANICE Barnett Service: Care Management Author Type: Registered Nurse Type: Care Mgt Progress Note Filed: 08/03/2018 2:18 PM Note Text: CARE MANAGEMENT PROGRESS NOTE SERVICE DATE: 08/03/2018 SERVICE TIME: 2:17 PM LOS: 2 days Needs Prior to Discharge: Pharmacy Bedside Delivery S/p PCI, has pericardial drain in place. Disch plan is home on [facility] - pharmacy following. SIGNATURE: Dottie Barnett RN PATIENT NAME: Anita Guzman DATE: August 03, 2018 TIME: 2:17 PM PAGER/CONTACT #: [phone] [facility] CASE MANAGEM HNO ID: [id number] Author: Bhumika King Service: Care Management Author Type: ? Type: Care Mgt Progress Note Filed: 08/03/2018 10:08 AM Note Text: CARE MANAGEMENT PROGRESS NOTE SERVICE DATE: 08/03/2018 SERVICE TIME: 914 LOS: 2 days IM letter given to patient on [id number]. SIGNATURE: Bhumika King PATIENT NAME: Anita Guzman DATE: August 03, 2018 TIME: 10:08 AM PAGER/CONTACT #: [phone] Normal [facility] Hemogramon 08-03-2018 Erythrocyte distribution width Ratio (RBC) 13.8 % Normal 11.6-14.4 [facility] Comment on above: Performed By: #### C BC1 #### [facility] [address] [place] [address] Hematocrit Volume Fraction (Bld) 34.1 % Low 40.1-51.0 [facility] Comment on above: Performed By: #### C BC1 #### [facility] [address] [place] [address] Hemoglobin mass conc (Bld) 11.1 g/dL Low 13.7-17.5 [facility] Comment on above: Performed By: #### C BC1 #### [facility] [address] [place] [address] MCH Entitic mass (RBC) 29.4 pg Normal 25.7-32.2 [facility] Comment on above: Performed By: #### C BC1 #### [place] [address] MCHC mass conc (RBC) 32.6 % Normal 32.3-36.5 [facility] Comment on above: Performed By: #### C BC1 #### [place] [address] MCV Entitic volume (RBC) 90.2 fL Normal 83.2-95.6 [facility] Comment on above: Performed By: #### C BC1 #### [facility] [address] [place] [address] Platelet mean volume Entitic volume (Bld) 10.0 fL Normal 8.7-12.0 [facility] Comment on above: Performed By: #### C BC1 #### [facility] [address] [place] [address] Platelets #/vol (Bld) 202 thou/cmm Normal 141-365 [facility] Comment on above: Performed By: #### C BC1 #### [facility] [address] [place] [address] RBC #/vol (Bld) 3.78 mil/cmm Low 4.63-6.08 [facility] Comment on above: Performed By: #### C BC1 #### [facility] [address] [place], [place] [address] RDW SD 44.9 fl Normal 36.1-45.8 [facility] Comment on above: Performed By: #### C BC1 #### [facility] [address] [place], [place] [address] WBC #/vol (Bld) 11.97 thou/cmm High 4.23-9.07 [facility] Comment on above: Performed By: #### C BC1 #### [facility] [address] [place], [place] [address] PROGRESSon 08-03-2018 Protein mass conc HNO ID: [id number] Author: Martin Garcia (Res) MD Pamela Service: Cardiovascular Medicine Author Type: Resident Type: Progress Notes Filed: 08/21/2018 8:08 AM Note Text: INTERNAL MEDICINE PROGRESS NOTE ADMITTING PHYSICIAN: Jia Victoria Subjective Brief HPI: This is a 68 year old male with h/o COPD, prior alcohol and polysubstance abuse was admitted yesterday regarding an abnormal stress test done as OP.?He initially presented to [facility] on 06/30/2018 with complaints of typical [...] NSR with no ST-T wave changes - C done today and underwent PCI of RCA with JAKOB stent. - Patient loaded with ticagrelor 180mg in the analyst microbiology lab - troponins up-trending, latest at 4.26 - [...] from pericardial effusion. Medication and Non-Pharmacologic VTE Prophylaxis/Anticoagulant s Anticoagulant AND Antiplatelet Medications (From admission, onward) [...] -- 08/01/18 1130 vte pharmacologic prophylaxis contraindicated (nh,[place]) 08/01/18 1130 pneumatic compression stockings ([place]) VTE Prophylaxis: VTE prophylaxis appropriate SIGNATURE: Martin Garcia Cha, MD PATIENT NAME: Anita Guzman DATE: August 03, 2018 TIME:11:32 AM PAGER/CONTACT #: Pager: [phone] [facility] ALLIED HEALTHon 08-02-2018 ALLIED HEALTH HNO ID: [id number] Author: Leo (Rn) JANICE Isaac Service: ? Author Type: Registered Nurse Type: Allied Health Filed: 08/02/2018 2:33 PM Note Text: CARDIAC REHABILITATION PATIENT EDUCATION PROGRESS NOTE Name: Anita Guzman Date of Service: 08/02/2018 Time of Service: 1400 ASSESSMENT: Risk Factors Identified: Age Gender Hyperlipidemia Hypertension Reformed Smoker: Year Quit: 2001. RECOMMENDATIONS: Patient interested in Phase II Outpatient Cardiac Rehab: Yes. Facility Preferred: [place] DIAGNOSIS: Percutaneous Cardiac Intervention: JAKOB PCI Teaching [...] Educational Binder Signature: Leo Isaac RN Pager: [phone] Date: August 02, 2018 Time: 2:25 PM Normal [facility] Basic Panelon 08-02-2018 Creatinine mass conc 0.99 mg/dL Normal 0.67-1.17 [facility] Comment on above: Performed By: #### P 8 #### [place] [address] Glucose mass conc 125 mg/dL High 70-99 [facility] Comment on above: Performed By: #### P 8 #### [place] [address] Anion gap molar conc 9 mmol/L Normal 8-16 [facility] Comment on above: Performed By: #### P 8 #### [facility] [address] [place] [address] Calcium mass conc 8.7 mg/dL Normal 8.5-10.1 [facility] Comment on above: Performed By: #### P 8 #### [facility] [address] [place] [address] CO2 molar conc 25 mmol/L Normal 21-32 [facility] Comment on above: Performed By: #### P 8 #### [facility] [address] [place] [address] Urea nitrogen mass conc 15 mg/dL Normal 7-18 [facility] Comment on above: Performed By: #### P 8 #### [place] [address] Chloride molar conc 105 mmol/L Normal 98-107 [facility] Comment on above: Performed By: #### P 8 #### [facility] [address] [place], [place] [address] Potassium molar conc 4.1 mmol/L Normal 3.5-5.1 [facility] Comment on above: Performed By: #### P 8 #### [facility] [address] [place] [id number] Sodium molar conc 135 mmol/L Low 136-145 [facility] Comment on above: Performed By: #### P 8 #### [facility] [address] [place] [address] CASE MGT INIT BENJIEon 2018 CASE MGT INIT ASSES HNO ID: [id number] Author: Mariama (Rn) JANICE Alves Service: ? Author Type: Registered Nurse Type: Care Mgt Initial Assessment Filed: 08/02/2018 11:57 AM Note Text: CARE MANAGEMENT: ASSESSMENT AND DISCHARGE PLAN SERVICE DATE: 08/02/2018 SERVICE TIME: 11:55 AM PRIMARY CARE PHYSICIAN: Michael Arroyo MD ADMISSION STATUS: Inpatient MEDICAL: Patient/[place] Stated Goals: To return home to life as it was Health Insurance: [employer] MEDICARE PPO confirmed Health Issues Impacting Discharge Plan: None Last Admission Date: none Is this Within the Past 30 days? No Advance Directive: Current Advance Directive: None Motorcycle Police Attempted to Assist with AD Completion: Yes [...] prn Has the Patient Been in a Penitentiary Facility in the Past 30 days? 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 Primary Contact: Extended Emergency Contact Information Primary Emergency Contact: Bridget Mcbride Mobile Relation: Sister Supportive: Yes Other Important [...] 0 I feel financially burdened by my [id number]-kwgwcf expenses for my prescription medication: Disagree completely [...] 02, 2018 TIME: 11:55 AM PAGER/CONTACT #: [phone] Normal [facility] Hemogramon 08-02-2018 Erythrocyte distribution width Ratio (RBC) 13.9 % Normal 11.6-14.4 [facility] Comment on above: Performed By: #### C BC1 #### [place] [address] Hematocrit Volume Fraction (Bld) 37.9 % Low 40.1-51.0 [facility] Comment on above: Performed By: #### C BC1 #### [address] [address] Hemoglobin mass conc (Bld) 12.6 g/dL Low 13.7-17.5 [facility] Comment on above: Performed By: #### C BC1 #### [facility] [address] [place] [address] MCH Entitic mass (RBC) 29.8 pg Normal 25.7-32.2 [facility] Comment on above: Performed By: #### C BC1 #### [facility] [address] [place] [address] MCHC mass conc (RBC) 33.2 % Normal 32.3-36.5 [facility] Comment on above: Performed By: #### C BC1 #### [facility] [address] [place] [address] MCV Entitic volume (RBC) 89.6 fL Normal 83.2-95.6 [facility] Comment on above: Performed By: #### C BC1 #### [facility] [address] [place] [address] Platelet mean volume Entitic volume (Bld) 9.9 fL Normal 8.7-12.0 [facility] Comment on above: Performed By: #### C BC1 #### [facility] [address] [place] [address] Platelets #/vol (Bld) 266 thou/cmm Normal 141-[address] [facility] Comment on above: Performed By: #### C BC1 #### [facility] [address] [place] [address] RBC #/vol (Bld) 4.23 mil/cmm Low 4.63-6.08 [facility] Comment on above: Performed By: #### C BC1 #### [facility] [address] [place] [address] RDW SD 45.3 fl Normal 36.1-45.8 [facility] Comment on above: Performed By: #### C BC1 #### [facility] [address] [place] [address] WBC #/vol (Bld) 14.62 thou/cmm High 4.23-9.07 [facility] Comment on above: Performed By: #### C BC1 #### [facility] [address] [place] [address] Lipid Profileon 08-02-2018 Cholesterol in HDL mass conc 64 mg/dL Normal >40 [facility] Comment on above: Performed By: #### C BC1 #### [facility] [address] [place], [place] [address] Cholesterol in LDL mass conc 59 mg/dL Normal [facility] Comment on above: Result Comment: No C AD and with fewer than 2 CAD risk factors <160 mg/dL No CAD but with 2 or more CAD risk factors <130 mg/dL Definite CAD or other atherosclerotic disease <100 mg/dL Performed By: #### C BC1 #### [facility] [address] [place], [place] [address] Cholesterol in LDL/Cholesterol in HDL mass ratio 0.9 Low 1.1-4.8 [facility] Comment on above: Result Comment: LDL, VLDL,LDL/HDL, Invalid if Triglyceride >400 Performed By: #### C BC1 #### [address] [address] Cholesterol.total/Chol esterol in HDL mass ratio 2.0 {ratio} Low 2.1-7.3 [facility] Comment on above: Performed By: #### C BC1 #### [address] [address] Cholesterol in VLDL mass conc 8 mg/dL Normal <50 Desired [facility] Comment on above: Performed By: #### C BC1 #### [facility] [address] [place], [place] [address] Triglyceride mass conc 39 mg/dL Normal 0-149 [facility] Comment on above: Result Comment: < 20 0 Desirable Result invalid if not a fasting specimen. Performed By: #### C BC1 #### [facility] [address] [place], [place] [address] Cholesterol mass conc 131 mg/dL Normal 0-199 [facility] Comment on above: Result Comment: <200 Desirable 200-240 Borderline >240 High Performed By: #### C BC1 #### [address] [address] NUTRITIONon 08-02-2018 NUTRITION HNO ID: [id number] Author: Louisa Baez Service: Nutrition Therapy Author [...] Assess/15 min 2 units SIGNATURE: Louisa Baez RD,BILL PATIENT NAME: Anita Guzman DATE: August 02, 2018 TIME: 11:38 AM PAGER: [phone] [facility] PLAN OF CAREon 08-02-2018 PLAN OF CARE HNO ID: [id number] Author: Luba Mendoza (Pharmacist) Service: ? Author Type: Pharmacist Type: Plan of Care Filed: 08/02/2018 12:37 PM Note Text: MEDICATION RECONCILIATION Patient Name:Rob Guzman : 1950 Reconciliation: Yes All AUDIO NARRATOR medications addressed by LIP Additional comments: N/A Allergies: ALLERGIES No Known Allergies Preferred Pharmacy: [facility] ([phone]) Current AUDIO NARRATOR Medications: Prior to Admission medications as of [...] 30 days. 07/31/2018 at Unknown time Yes cdllzqfopsq-koatxyblt-sha anter (TRELEGY ELLIPTA) 100-62.5-25 mcg dsdv Inhale 1 [...] MENDOZA, PHARMACIST August 02, 2018 12:36 PM [facility] PLAN OF CARE HNO ID: [id number] Author: Luba Mendoza (Pharmacist) Service: ? Author Type: Pharmacist Type: Plan of Care Filed: 08/02/2018 12:36 PM Note Text: MEDICATION HISTORY Patient Name:.Anita Guzman : 1950 Source of history:Spoke with patient; appears reliable. Also reviewed fill history avaliable on [facility] Medication Nonadherence Identified: No barriers noted. The above information represents the best possible medication history: Yes Additional comments: Verified all medications with patient. Patient fills medications at [facility] in [place], [place] Added: Aspirin 81 mg daily - verified with patient (note that aspirin 325 mg was just a one time dose; will remove from list) Allergies: ALLERGIES No Known Allergies Preferred Pharmacy: [facility] in [place], [place] ([phone]) Current AUDIO NARRATOR Medications: Prior to Admission medications as of [...] 30 days. 07/31/2018 at Unknown time Yes wqdesvtwlzi-ummondjue-ihw anter (TRELEGY ELLIPTA) 100-62.5-25 mcg dsdv Inhale 1 Puff as instructed once daily as needed. 08/01/2018 at Unknown time Yes pramipexole (MIRAPEX) 0.25 mg tablet Take 1 tablet by mouth daily at bedtime. 07/31/2018 at Unknown time Yes tSTARTED ON THIS ADMISSION Tadalafil (CIALIS) 10 mg tablet Take 1 tablet by mouth as needed (30 minutes prior intercourse.). Francisca Abraham (Compactor Driver) August 02, 2018 10:09 AM Normal [facility] PROGRESSon 08-02-2018 Protein mass conc HNO ID: [id number] Author: Martin Garcia ([place]) MD Pamela Service: Cardiovascular Medicine Author Type: Resident Type: Progress Notes Filed: 08/02/2018 10:19 AM Note Text: ----- Attestation signed by Seferino Peters at 08/03/2018 2:42 PM Patient personally seen and examined. Case discussed with resident and team. I agree with documentation. Seferino Peters MD, FACP, FACC, [facility] Staff Cardiovascular Medicine [facility] Regional Section of Interventional Cardiology at [facility] of [address] [place], [place] [address] P: [phone] F: [phone] ----- INTERNAL MEDICINE PROGRESS NOTE SERVICE DATE: 08/02/2018 SERVICE TIME: 19:58 AM ADMITTING PHYSICIAN: Jia Victoria Subjective Brief HPI: This is a 68 year old male with h/o COPD, prior alcohol and polysubstance abuse was admitted yesterday regarding an abnormal stress test done as OP.?He initially presented to [facility] on 06/30/2018 with complaints of typical [...] Patient loaded with ticagrelor 180mg in the analyst microbiology lab - troponins up-trending, latest at 4.26 - [...] from pericardial effusion. Medication and Non-Pharmacologic VTE Prophylaxis/Anticoagulant s Anticoagulant AND Antiplatelet Medications (From admission, onward) [...] -- 08/01/18 1130 vte pharmacologic prophylaxis contraindicated (nh,oh) 08/01/18 1130 pneumatic compression stockings (nh,[place]) VTE Prophylaxis: VTE prophylaxis appropriate SIGNATURE: Martin Garcia Cha, MD PATIENT NAME: Anita Guzman DATE: August 02, 2018 TIME: 9:59 AM PAGER/CONTACT #: Pager: [phone] Normal [facility] Troponin Ion 08-02-2018 Troponin I.cardiac mass conc 4.160 ng/mL Critically high 0.015-0.045 [facility] Comment on above: Performed By: #### C BC1 #### [place] [address] Troponin I.cardiac mass conc 4.480 ng/mL Critically high 0.015-0.045 [facility] Comment on above: Performed By: #### C BC1 #### [place] [address] Troponin I.cardiac mass conc 4.260 ng/mL Critically high 0.015-0.045 [facility] Comment on above: Performed By: #### T ROP #### [place] [address] Troponin I.cardiac mass conc 2.910 ng/mL Critically high 0.015-0.045 [facility] Comment on above: Performed By: #### T ROP #### [place] [address] ACT Arterial Panel (i-STAT)o n 08-01-2018 Kaolin ACT ( i-STAT) 164 sec High 74-137 [facility] Comment on above: Performed By: #### A CTIA #### [place] [address] BRIEF OP NOTon 08-01-2018 BRIEF OP NOT HNO ID: [id number] Author: Seferino Peters Service: Interventional Cardiology Author Type: Physician Type: Brief Op Note Filed: 08/01/2018 5:28 PM Note Text: Brief Note Anita Guzman [id number] 1950 08/01/2018 Michael Arroyo MD Note: Coronary [...] ostium was engaged with a Dean Right 6-Icelandic guiding catheter that provided fair support. The lesion was crossed successfully without difficulty using a Vitaliy Blue wire, and direct stented with a 5.0 mm x 32 mm everolimus-eluting united auburn chromium stent. The stent was post-dilated to [...] radial artery. Seferino Peters MD, FACP, FACC, [facility] Staff Cardiovascular Medicine [facility] Regional Section of Interventional Cardiology at [facility] Medicine of [address], [facility] [address] [place], [place] [address] P: [phone] F: [phone] [email or web address] Normal [facility] BRIEF OP NOT HNO ID: [id number] Author: Jia Victoria Service: Cardiovascular Medicine Author Type: Physician Type: Brief Op Note Filed: 08/01/2018 8:28 AM Note Text: Cath-Indication: Abn stress test Findings LVEF 65% L Main, LAD, LCx luminals RCA large vessel mid 75 mid [address] Peters to perform Jai Victoria MD Pager [phone] Normal [facility] Basic Panelon 08-01-2018 Creatinine mass conc 0.85 mg/dL Normal 0.67-1.17 [facility] Comment on above: Performed By: #### P 8 #### [place] [address] Urea nitrogen mass conc 17 mg/dL Normal 7-18 [facility] Comment on above: Performed By: #### P 8 #### [facility] [address] [place] [address] Anion gap molar conc 11 mmol/L Normal 8-16 [facility] Comment on above: Performed By: #### P 8 #### [facility] [address] [place], [place] [address] Calcium mass conc 8.3 mg/dL Low 8.5-10.1 [facility] Comment on above: Performed By: #### P 8 #### [facility] [address] [place] [address] CO2 molar conc 25 mmol/L Normal 21-32 [facility] Comment on above: Performed By: #### P 8 #### [facility] [address] [place] [address] Glucose mass conc 102 mg/dL High 70-99 [facility] Comment on above: Performed By: #### P 8 #### [facility] [address] [place] [address] Chloride molar conc 108 mmol/L High 98-107 [facility] Comment on above: Performed By: #### P 8 #### [facility] [address] [place] [address] Potassium molar conc 4.1 mmol/L Normal 3.5-5.1 [facility] Comment on above: Performed By: #### P 8 #### [facility] [address] [place] [address] Sodium molar conc 140 mmol/L Normal 136-145 [facility] Comment on above: Performed By: #### P 8 #### [facility] [address] [place] [address] HISTORY PHYSICALon 9 HISTORY PHYSICAL HNO ID: [id number] Author: Alma Pérez Service: Cardiovascular Medicine Author Type: Resident Type: HANDP Filed: 08/01/2018 11:17 AM Note Text: ----- Attestation signed by Seferino Peters at 08/01/2018 2:20 PM Patient personally seen and examined. Case discussed with resident and team. I agree with documentation. Seferino Peters MD, FACP, FACC, [facility] Staff Cardiovascular Medicine [facility] Regional Section of Interventional Cardiology at [facility] [address] [place], [place] [address] P: [phone] F: [phone] ----- HISTORY AND PHYSICAL EXAMINATION SERVICE DATE: 08/01/2018 SERVICE TIME: 10:30AM PRIMARY CARE PHYSICIAN: Michael Arroyo MD Subjective CHIEF COMPLAINT: Abnormal stress test HPI: This is a 68 year old male with h/o COPD, prior alcohol and polysubstance abuse was admitted yesterday regarding an abnormal stress test done as OP. He initially presented to [facility] on 06/30/2018 with complaints of typical [...] stenosis of the RCA. He subsequently underwent [facility] this am for intervention. He underwent [...] Laterality Date - COLONOSCOP W/ OR W/O [facility] SPEC 10/31/05 - COLONOSCOP W/ OR W/O [facility] SPEC 11/12/15 Colonoscopy - SECONDARY RECONSTRUCTION,ANKLE JOINT [...] capsule Rfl: 2 07/31/2018 at Unknown time vkecfjkttbc-nbqihbghw-jhv anter (TRELEGY ELLIPTA) 100-62.5-25 mcg dsdv Inhale 1 [...] Patient loaded with ticagrelor 180mg in the analyst microbiology lab -Obtain serial troponins -Obtain HbA1c and lipid [...] with pericardial effusion Medication and Non-Pharmacologic VTE Prophylaxis/Anticoagulant s VTE Prophylaxis: VTE prophylaxis appropriate SIGNATURE: CAMPOS Patrick PATIENT NAME: Anita Guzman DATE: August 01, 2018 TIME: 10:09 AM PAGER/CONTACT #: [phone] Normal [facility] Hemogramon 08-01-2018 Erythrocyte distribution width Ratio (RBC) 13.7 % Normal 11.6-14.4 [facility] Comment on above: Performed By: #### C BC1 #### [facility] [address] [place] [address] Hematocrit Volume Fraction (Bld) 38.2 % Low 40.1-51.0 [facility] Comment on above: Performed By: #### C BC1 #### [facility] [address] [place], [place] [address] Hemoglobin mass conc (Bld) 12.3 g/dL Low 13.7-17.5 [facility] Comment on above: Performed By: #### C BC1 #### [facility] [address] [place] [address] MCH Entitic mass (RBC) 29.1 pg Normal 25.7-32.2 [facility] Comment on above: Performed By: #### C BC1 #### [facility] [address] [place] [address] MCHC mass conc (RBC) 32.2 % Low 32.3-36.5 [facility] Comment on above: Performed By: #### C BC1 #### [facility] [address] [place] [address] MCV Entitic volume (RBC) 90.3 fL Normal 83.2-95.6 [facility] Comment on above: Performed By: #### C BC1 #### [facility] [address] [place] [address] Platelet mean volume Entitic volume (Bld) 10.4 fL Normal 8.7-12.0 [facility] Comment on above: Performed By: #### C BC1 #### [facility] [address] [place] [address] Platelets #/vol (Bld) 223 thou/cmm Normal 141-[address] [facility] Comment on above: Performed By: #### C BC1 #### [facility] [address] [place] [address] RBC #/vol (Bld) 4.23 mil/cmm Low 4.63-6.08 [facility] Comment on above: Performed By: #### C BC1 #### [facility] [address] [place] [address] RDW SD 45.4 fl Normal 36.1-45.8 [facility] Comment on above: Performed By: #### C BC1 #### [facility] [address] [place] [address] WBC #/vol (Bld) 9.17 thou/cmm High 4.23-9.07 [facility] Comment on above: Performed By: #### C BC1 #### [facility] [address] [place], [place] [address] Magnesium Bloodon 08-01-2018 Magnesium mass conc 2.0 mg/dL Normal 1.6-2.6 [facility] Comment on above: Performed By: #### M AG #### [facility] [address] [place], [place] [address] PROGRESSon 08-01-2018 Protein mass conc HNO ID: [id number] Author: Ammy Coyle) [place] Service: Cardiovascular Medicine Author Type: Nurse Practitioner Type: Progress Notes Filed: 08/01/2018 10:58 PM Note Text: CARDIOTHORACICSURGERY PROGRESS NOTE SERVICE DATE: 08/01/2018 SERVICE TIME: 10:10am Called to see patient for c/o chest pain. Pt is a 68yo male with CAD with stable angina and abnormal stress test who presented today for [facility]. Underwent placement of JAKOB to RCA. [...] 01, 2018 TIME: 10:51 AM PAGER/CONTACT #: [phone] [id number] Normal [facility] Troponin Ion 08-01-2018 Troponin I.cardiac mass conc 0.675 ng/mL High 0.015-0.045 [facility] Comment on above: Performed By: #### T ROP #### [facility] [address] [place] [address] HOSPon 07-30-2018 HOSP Patient:Anita Guzman MRN: Height:5' [...] mg tablet gabapentin (NEURONTIN) 300 mg capsule grvoguskeds-rsfrcrhsu-dqi anter (TRELEGY ELLIPTA) 100-62.5-25 mcg dsdv pramipexole (MIRAPEX) [...] 38.4 % 07/30/2018 51.0 39.0 Progress Notes ([facility]): Eliana César Pss 07/30/2018 1:54 PM Signed Patient has been [...] LÓPEZ: No Please review and advise. Eliana [facility] Pss Yancy Nassar Ma 07/30/2018 2:44 PM Signed Last OV 07/03/18 with KWAKU. 03/09/18 1 inhaler w/5 refills. Yancy Gooden APRN.CHRIS 07/30/2018 2:49 PM Signed The following approved medication requests have been transmitted electronically. Signed Prescriptions Disp Refills albuterol HFA (VENTOLIN HFA) 90 mcg/actuation inhaler 1 Inhaler 5 Sig: Inhale 2 Puffs as instructed every 4 hours as needed. LÓPEZ: No Authorizing Provider: REBECCA GOODEN ([facility]) Rebecca Gooden APRN.CORRECTIONAL SERGEANT Progress Notes ([place] PROVIDER ADULT): Jia Victoria MD 07/30/2018 6:[address] Royal Garcia in [place] asking me to do cath on this pt at [facility] for abn stress test -please see if pt can do either This MonAug 01 or next Aug 07. Needs CBC but not BMP Thx Sourav Gómez RN 07/30/2018 8:57 AM Signed [facility] requesting pt return call to discuss scheduling heart cath.Office phone number provided. JANICE Grey RN 07/30/2018 9:49 AM Signed Pt returns call. Patient scheduled for left heart cath, rt radial, with Dr Victoria on Mon08/01/18. Instructions reviewed. Questions answered. Patient verbalized understanding. Instructions were as follows: -Arrive to [facility] HANDV Entrance 08/01/18 at time assigned by [facility] photo lab manager staff in phone call 07/31/18 PM.. -Nothing by mouth after midnight evening prior. -With a sip of water on 08/01/18 morning take: Aspirin 325mg. -Labs to be done no later than 07/31/18. CBC order entered. - You must have someone drive you home from your procedure. -photo lab manager policy is pt not be alone first evening Office phone number provided for questions or concerns. [facility] analyst microbiology lab notified. Day Gómez RN Ebony Whitley 07/30/2018 10:28 AM Signed auth pending with Maryana, hoang #[id number] Ebony Whitley 07/31/2018 8:44 AM Signed auth [...] Vital Sign Value Performing Clinician Uvaldo velasquez 11-26-2024 09:01-0400 Body mass index (BMI) [Ratio] 25.2 kg/m2 Dr. Sharon Osorio MD Work Phone: [facility] 11-26-2024 09:01-0400 Body temperature 97.4 [degF] Dr. Sharon Osorio MD Work Phone: [facility] 11-26-2024 09:01-0400 Body weight 75.[address] Sharon Osorio MD Work Phone: [facility] 11-26-2024 09:01-0400 Diastolic blood pressure 65 mm[Hg] Dr. Sharon Osorio MD Work Phone: [facility] 11-26-2024 09:01-0400 Heart rate 77 /min Dr. Sharon Osorio MD Work Phone: [facility] 11-26-2024 09:01-0400 Respiratory rate 18 /min Dr. Sharon Osorio MD Work Phone: [facility] 11-26-2024 09:01-0400 SaO2% (BldA) [Mass fraction] 92 % Dr. Sharon Osorio MD Work Phone: [facility] 11-26-2024 09:01-0400 Systolic blood pressure 144 mm[Hg] Dr. Sharon Osorio MD Work Phone: [facility] 11-14-2024 14:28-0400 Body height 172.[address] Sharon Osorio MD Work Phone: [facility] 11-14-2024 14:28-0400 Body mass index (BMI) [Ratio] 25 kg/m2 Dr. Sharon Osorio MD Work Phone: [facility] 11-14-2024 14:28-0400 Body temperature 97.2 [degF] Dr. Sharon Osorio MD Work Phone: [facility] 11-14-2024 14:28-0400 Body weight 74.[address] Sharon Osorio MD Work Phone: [facility] 11-14-2024 14:28-0400 Diastolic blood pressure 70 mm[Hg] Dr. Sharon Osorio MD Work Phone: [facility] 11-14-2024 14:28-0400 Heart rate 68 /min Dr. Sharon Osorio MD Work Phone: [facility] 11-14-2024 14:28-0400 Respiratory rate 16 /min Dr. Sharon Osorio MD Work Phone: [facility] 11-14-2024 14:28-0400 SaO2% (BldA) [Mass fraction] 99 % Dr. Sharon Osorio MD Work Phone: [facility] 11-14-2024 14:28-0400 Systolic blood pressure 110 mm[Hg] Dr. Sharon Osorio MD Work Phone: [facility] 10-08-2024 12:46-0400 Body height 172.[address] Sharon Osorio MD Work Phone: [facility] 10-08-2024 12:46-0400 Body weight 73.[address] Sharon Osorio MD Work Phone: [facility] 10-08-2024 12:46-0400 Heart rate 90 /min Dr. Sharon Osorio MD Work Phone: [facility] 10-08-2024 12:46-0400 Inhaled oxygen flow rate 2 L/min Dr. Sharon Osorio MD Work Phone: [facility] 10-08-2024 12:46-0400 SaO2% (BldA) [Mass fraction] 87 % Dr. Sharno Osorio MD Work Phone: [facility] 10-02-2024 08:35-0400 Body height 172.[address] Sharon Osorio MD Work Phone: [facility] 10-02-2024 08:35-0400 Body mass index (BMI) [Ratio] 24.9 kg/m2 Dr. Sharon Osorio MD Work Phone: [facility] 10-02-2024 08:35-0400 Body temperature 97.5 [degF] Dr. Sharon Osorio MD Work Phone: [facility] 10-02-2024 08:35-0400 Body weight 74.[address] Sharon Osorio MD Work Phone: [facility] 10-02-2024 08:35-0400 Diastolic blood pressure 63 mm[Hg] Dr. Sharon Osorio MD Work Phone: [facility] 10-02-2024 08:35-0400 Heart rate 84 /min Dr. Sharon Osorio MD Work Phone: [facility] 10-02-2024 08:35-0400 Respiratory rate 18 /min Dr. Sharon Osorio MD Work Phone: [facility] 10-02-2024 08:35-0400 SaO2% (BldA) [Mass fraction] 93 % Dr. Sharon Osorio MD Work Phone: [facility] 10-02-2024 08:35-0400 Systolic blood pressure 111 mm[Hg] Dr. Sharon Osorio MD Work Phone: [facility] 06-05-2024 08:14-0500 Body temperature 97.7 [degF] Dr. Sharon Osorio MD Work Phone: [facility] 06-05-2024 08:14-0500 Diastolic blood pressure 80 mm[Hg] Dr. Sharon Osorio MD Work Phone: [facility] 06-05-2024 08:14-0500 Heart rate 94 /min Dr. Sharon Osorio MD Work Phone: [facility] 06-05-2024 08:14-0500 Respiratory rate 20 /min Dr. Sharon Osorio MD Work Phone: [facility] 06-05-2024 08:14-0500 SaO2% (BldA) [Mass fraction] 88 % Dr. Sharon Osorio MD Work Phone: [facility] 06-05-2024 08:14-0500 Systolic blood pressure 150 mm[Hg] Dr. Sharon Osorio MD Work Phone: [facility] 04-20-2023 15:16-0500 Body height 172.[address] Sharon Osorio Work Phone: [facility] 04-20-2023 15:16-0500 Body mass index (BMI) [Ratio] 26.7 kg/m2 Dr. Sharon Osorio Work Phone: [facility] 04-20-2023 15:16-0500 Body temperature 97 [degF] Dr. Sharon Osorio Work Phone: [facility] 04-20-2023 15:16-0500 Body weight 79.[address] Sharon Osorio Work Phone: [facility] 04-20-2023 15:16-0500 Diastolic blood pressure 80 mm[Hg] Dr. Sharon Osorio Work Phone: [facility] 04-20-2023 15:16-0500 Heart rate 82 /min Dr. Sharon Osorio Work Phone: [facility] 04-20-2023 15:16-0500 Respiratory rate 18 /min Dr. Sharon Osorio Work Phone: [facility] 04-20-2023 15:16-0500 SaO2% (BldA) [Mass fraction] 96 % Dr. Sharon Osorio Work Phone: [facility] 04-20-2023 15:16-0500 Systolic blood pressure 130 mm[Hg] Dr. Sharon Osorio Work Phone: [facility] 04-12-2023 06:02-0500 Body mass index (BMI) [Ratio] 26.6 kg/m2 Dr. Sharon Osorio Work Phone: [facility] 04-12-2023 06:02-0500 Body temperature 98.2 [degF] Dr. Sharon Osorio Work Phone: [facility] 04-12-2023 06:02-0500 Body weight 79.[address] Sharon Osorio Work Phone: [facility] 04-12-2023 06:02-0500 Diastolic blood pressure 72 mm[Hg] Dr. Sharon Osorio Work Phone: [facility] 04-12-2023 06:02-0500 Heart rate 90 /min Dr. Sharon Osorio Work Phone: [facility] 04-12-2023 06:02-0500 Inhaled oxygen flow rate 94 L/min Dr. Sharon Osorio Work Phone: [facility] 04-12-2023 06:02-0500 Respiratory rate 20 /min Dr. Sharon Osorio Work Phone: [facility] 04-12-2023 06:02-0500 SaO2% (BldA) [Mass fraction] 94 % Dr. Sharon Osorio Work Phone: [facility] 04-12-2023 06:02-0500 Systolic blood pressure 151 mm[Hg] Dr. Sharon Osorio Work Phone: [facility] 01-16-2023 15:19-0400 Body mass index (BMI) [Ratio] 26.8 kg/m2 Dr. Sharon Osorio Work Phone: [facility] 01-16-2023 15:19-0400 Body temperature 97.6 [degF] Dr. Sharon Osorio Work Phone: [facility] 01-16-2023 15:19-0400 Body weight [address] Sharon Osorio Work Phone: [facility] 01-16-2023 15:19-0400 Diastolic blood pressure 78 mm[Hg] Dr. Sharon Osorio Work Phone: [facility] 01-16-2023 15:19-0400 Heart rate 76 /min Dr. Sharon Osorio Work Phone: [facility] 01-16-2023 15:19-0400 Respiratory rate 20 /min Dr. Sharon Osorio Work Phone: [facility] 01-16-2023 15:19-0400 SaO2% (BldA) [Mass fraction] 96 % Dr. Sharon Osorio Work Phone: [facility] 01-16-2023 15:19-0400 Systolic blood pressure 130 mm[Hg] Dr. Sharon Osorio Work Phone: [facility] 12-07-2022 08:38-0400 Body height 172.[address] Sharon Osorio Work Phone: [facility] 12-07-2022 08:38-0400 Body mass index (BMI) [Ratio] 26.7 kg/m2 Dr. Sharon Osorio Work Phone: [facility] 12-07-2022 08:38-0400 Body temperature 97.5 [degF] Dr. Sharon Osorio Work Phone: [facility] 12-07-2022 08:38-0400 Body weight 79.[address] Sharon Osorio Work Phone: [facility] 12-07-2022 08:38-0400 Diastolic blood pressure 76 mm[Hg] Dr. Sharon Osorio Work Phone: [facility] 12-07-2022 08:38-0400 Heart rate 78 /min Dr. Sharon Osorio Work Phone: [facility] 12-07-2022 08:38-0400 Respiratory rate 20 /min Dr. Sharon Osorio Work Phone: [facility] 12-07-2022 08:38-0400 SaO2% (BldA) [Mass fraction] 95 % Dr. Sharon Osorio Work Phone: [facility] 12-07-2022 08:38-0400 Systolic blood pressure 150 mm[Hg] Dr. Sharon Osorio Work Phone: [facility] 09-07-2022 14:58-0400 Body mass index (BMI) [Ratio] 26.2 kg/m2 Dr. Sharon Osorio Work Phone: [facility] 09-07-2022 14:58-0400 Body temperature 98.3 [degF] Dr. Sharon Osorio Work Phone: [facility] 09-07-2022 14:58-0400 Body weight 78.[address] Sharon Osorio Work Phone: [facility] 09-07-2022 14:58-0400 Diastolic blood pressure 62 mm[Hg] Dr. Sharon Osorio Work Phone: [facility] 09-07-2022 14:58-0400 Heart rate 84 /min Dr. Sharon Osorio Work Phone: [facility] 09-07-2022 14:58-0400 Respiratory rate 18 /min Dr. Sharon Osorio Work Phone: [facility] 09-07-2022 14:58-0400 SaO2% (BldA) [Mass fraction] 90 % Dr. Sharon Osorio Work Phone: [facility] 09-07-2022 14:58-0400 Systolic blood pressure 122 mm[Hg] Dr. Sharon Osorio Work Phone: [facility] 03-12-2022 15:20-0500 Diastolic blood pressure 68 mm[Hg] Dr. Sharon Osorio Work Phone: [facility] Work Phone: 03-12-2022 15:20-0500 Heart rate 65 /min Dr. Sharon Osorio Work Phone: [facility] Work Phone: 03-12-2022 15:20-0500 Respiratory rate 23 /min Dr. Sharon Osorio Work Phone: [facility] Work Phone: 03-12-2022 15:20-0500 SaO2% (BldA) [Mass fraction] 95 % Dr. Sharon Osorio Work Phone: [facility] Work Phone: 03-12-2022 15:20-0500 Systolic blood pressure 141 mm[Hg] Dr. Sharon Osorio Work Phone: [facility] Work Phone: 03-12-2022 11:04-0500 Body height 172.[address] Sharon Osorio Work Phone: [facility] Work Phone: 03-12-2022 11:04-0500 Body mass index (BMI) [Ratio] 24.7 kg/m2 Dr. Sharon Osorio Work Phone: [facility] Work Phone: 03-12-2022 11:04-0500 Body temperature 96.7 [degF] Dr. Sharon Osorio Work Phone: [facility] Work Phone: 03-12-2022 11:04-0500 Body weight 73.[address] Sharon Osorio Work Phone: [facility] Work Phone: 03-03-2022 10:15-0500 Body height 172.[address] Sharon Osorio Work Phone: [facility] Work Phone: 03-03-2022 10:15-0500 Body mass index (BMI) [Ratio] 24.7 kg/m2 Dr. Sharon Osorio Work Phone: [facility] Work Phone: 03-03-2022 10:15-0500 Body temperature 97.1 [degF] Dr. Sharon Osorio Work Phone: [facility] Work Phone: 03-03-2022 10:15-0500 Body weight 73.[address] Sharon Osorio Work Phone: [facility] Work Phone: 03-03-2022 10:15-0500 Diastolic blood pressure 65 mm[Hg] Dr. Sharon Osorio Work Phone: [facility] Work Phone: 03-03-2022 10:15-0500 Heart rate 82 /min Dr. Sharon Osorio Work Phone: [facility] Work Phone: 03-03-2022 10:15-0500 Respiratory rate 20 /min Dr. Sharon Osorio Work Phone: [facility] Work Phone: 03-03-2022 10:15-0500 SaO2% (BldA) [Mass fraction] 93 % Dr. Sharon Osorio Work Phone: [facility] Work Phone: 03-03-2022 10:15-0500 Systolic blood pressure 135 mm[Hg] Dr. Sharon Osorio Work Phone: [facility] Work Phone: 03-01-2022 11:13-0500 Body temperature 96.5 [degF] Dr. Sharon Osorio Work Phone: [facility] Work Phone: 03-01-2022 11:13-0500 Body weight 72.[address] Sharon Osorio Work Phone: [facility] Work Phone: 03-01-2022 11:13-0500 Diastolic blood pressure 84 mm[Hg] Dr. Sharon Osorio Work Phone: [facility] Work Phone: 03-01-2022 11:13-0500 Heart rate 70 /min Dr. Sharon Osorio Work Phone: [facility] Work Phone: 03-01-2022 11:13-0500 Respiratory rate 18 /min Dr. Sharon Osorio Work Phone: [facility] Work Phone: 03-01-2022 11:13-0500 SaO2% (BldA) [Mass fraction] 96 % Dr. Sharon Osorio Work Phone: [facility] Work Phone: 03-01-2022 11:13-0500 Systolic blood pressure 136 mm[Hg] Dr. Sharon Osorio Work Phone: [facility] Work Phone: 12-24-2021 10:17-0400 Body temperature 98.2 [degF] Dr. Sharon Osorio Work Phone: [facility] Work Phone: 12-24-2021 10:17-0400 Diastolic blood pressure 52 mm[Hg] Dr. Sharon Osorio Work Phone: [facility] Work Phone: 12-24-2021 10:17-0400 Heart rate 88 /min Dr. Sharon Osorio Work Phone: [facility] Work Phone: 12-24-2021 10:17-0400 Respiratory rate 16 /min Dr. Sharon Osorio Work Phone: [facility] Work Phone: 12-24-2021 10:17-0400 SaO2% (BldA) [Mass fraction] 96 % Dr. Sharon Osorio Work Phone: [facility] Work Phone: 12-24-2021 10:17-0400 Systolic blood pressure 112 mm[Hg] Dr. Sharon Osorio Work Phone: [facility] Work Phone: 12-20-2021 13:08-0400 Body temperature 98 [degF] Dr. Sharon Osorio Work Phone: [facility] Work Phone: 12-20-2021 13:08-0400 Diastolic blood pressure 62 mm[Hg] Dr. Sharon Osorio Work Phone: [facility] Work Phone: 12-20-2021 13:08-0400 Heart rate 82 /min Dr. Sharon Osorio Work Phone: [facility] Work Phone: 12-20-2021 13:08-0400 Respiratory rate 16 /min Dr. Sharon Osorio Work Phone: [facility] Work Phone: 12-20-2021 13:08-0400 SaO2% (BldA) [Mass fraction] 93 % Dr. Sharon Osorio Work Phone: [facility] Work Phone: 12-20-2021 13:08-0400 Systolic blood pressure 148 mm[Hg] Dr. Sharon Osorio Work Phone: [facility] Work Phone: 12-03-2021 11:11-0400 Body mass index (BMI) [Ratio] 25.2 kg/m2 Dr. Sharon Osorio Work Phone: [facility] Work Phone: 12-03-2021 11:11-0400 Body temperature 98.6 [degF] Dr. Sharon Osorio Work Phone: [facility] Work Phone: 12-03-2021 11:11-0400 Body weight 75.[address] Sharon Osorio Work Phone: [facility] Work Phone: 12-03-2021 11:11-0400 Diastolic blood pressure 60 mm[Hg] Dr. Sharon Osorio Work Phone: [facility] Work Phone: 12-03-2021 11:11-0400 Heart rate 75 /min Dr. Sharon Osorio Work Phone: [facility] Work Phone: 12-03-2021 11:11-0400 Respiratory rate 16 /min Dr. Sharon Osorio Work Phone: [facility] Work Phone: 12-03-2021 11:11-0400 SaO2% (BldA) [Mass fraction] 92 % Dr. Sharon Osoiro Work Phone: [facility] Work Phone: 12-03-2021 11:11-0400 Systolic blood pressure 117 mm[Hg] Dr. Sharon Osorio Work Phone: [facility] Work Phone: 06-23-2021 08:42-0500 Body height 172.[address] Sharon Osorio Work Phone: [facility] Work Phone: 06-23-2021 08:42-0500 Body weight 75.[address] Sharon Osorio Work Phone: [facility] Work Phone: 06-23-2021 08:42-0500 Diastolic blood pressure 80 mm[Hg] Dr. Sharon Osorio Work Phone: [facility] Work Phone: 06-23-2021 08:42-0500 Heart rate 93 /min Dr. Sharon Osorio Work Phone: [facility] Work Phone: 06-23-2021 08:42-0500 Respiratory rate 18 /min Dr. Sharon Osorio Work Phone: [facility] Work Phone: 06-23-2021 08:42-0500 SaO2% (BldA) [Mass fraction] 99 % Dr. Sharon Osorio Work Phone: [facility] Work Phone: 06-23-2021 08:42-0500 Systolic blood pressure 131 mm[Hg] Dr. Sharon Osorio Work Phone: [facility] Work Phone: 06-17-2020 12:06-0500 Body mass index (BMI) [Ratio] 25.9 kg/m2 Dr. Sharon Osorio Work Phone: [facility] Work Phone: Encounters Encounter Date Encounter Type Care Provider Facility Start: 12-11-2024 ambulatory Sharon Dennis ty:[facility] Start: 12-03-2024 End: 12-03-[address] Sharon Osorio MD Work Phone: -Pulmonary Services/Neurology Start: 12-03-2024 End: 12-03-[address] Sharon Osorio MD -Pulmonary Services/Neurology Work Phone: Start: 12-03-2024 End: 12-03-2024 ambulatory Sharon Osorio Facility:[facility] Start: 11-26-2024 End: 11-26-2024 Patient encounter procedure Sharon LAUREN -[facility] Work Phone: Start: 11-26-2024 End: 11-26-[address] Sharon Osorio MD Work Phone: -[facility] Start: 11-14-2024 End: 11-14-[address] Sharon Osorio MD Work Phone: -[facility] Start: 11-14-2024 End: 11-14-[address] Sharon Osorio MD -[facility] Work Phone: Start: 11-14-2024 End: 11-14-2024 ambulatory Sharon Osorio Facility:[facility] Start: 10-10-2024 Non-patient / Non-visit Dr. Elgin huang DO -[facility] Start: 10-10-2024 ambulatory Elgin Trujillo Facility:[facility] Start: 10-08-2024 End: 10-08-[address] Sharon Osorio MD Work Phone: -Pulmonary Services/Neurology Start: 10-08-2024 End: 10-08-2024 Patient encounter procedure Sharon Hester NP-C -Pulmonary Services/Neurology Work Phone: Start: 10-08-2024 End: 10-08-2024 ambulatory Sharon Hester NP Facility:[facility] Start: 10-02-2024 End: 10-02-2024 Patient encounter procedure Sharon Hester NP-C -[facility] Work Phone: Start: 10-02-2024 End: 10-02-[address] Sharon Osorio MD Work Phone: [facility] Work Phone: Start: 06-05-2024 End: 06-05-[address] Weston Mccarthy MD -[facility] Start: 06-05-2024 End: 06-05-2024 ambulatory Sharon Osorio Facility:[facility] Start: 06-05-2024 End: 06-05-2024 Patient encounter procedure Sergio Ramirez NP-C -[facility] Work Phone: Start: 06-05-2024 End: 06-05-2024 ambulatory Sharon Osorio Facility:[facility] Start: 05-16-[address] Sharon Osorio MD Work Phone: [facility] Start: 05-16-2024 End: 05-16-2024 ambulatory [facility] [place] Start: 05-16-2024 End: 05-16-[facility] Start: 01-07-2024 End: 01-07-2024 [facility]ulatory [facility] Start: 12-25-2023 End: 12-25-2023 ambulatory [facility] Start: 12-25-2023 End: 12-25-2023 [facility] Start: 04-20-2023 End: 04-20-[address] Sharon Osorio Work Phone: [facility] Work Phone: Start: 04-20-2023 End: 04-20-[address] Sharon Osorio Work Phone: [facility] Work Phone: Start: 04-12-2023 End: 04-12-[address] Sharon Osorio Work Phone: [facility] Work Phone: Start: 01-16-2023 End: 01-16-[address] Sharon Osorio Work Phone: [facility] Work Phone: Start: 12-12-2022 End: 12-12-[address] Sharon Osorio Work Phone: [facility] Work Phone: Start: 12-12-2022 End: 12-12-[address] Sharon Osorio Work Phone: [facility]-Laboratory, Specimen Work Phone: Start: 12-07-2022 End: 12-07-[address] [facility] Work Phone: Start: 12-01-2022 End: 12-01-[address] Sharon Osorio Work Phone: [facility] Work Phone: Start: 12-01-2022 End: 12-01-[address] Sharon Osorio Work Phone: [facility] Work Phone: Start: 09-07-2022 End: 09-07-[address] Sharon Osorio Work Phone: [facility] Work Phone: Start: 03-12-2022 End: 03-12-2022 Emergency department patient visit Dr. Sharon Osorio Work Phone: [facility]-Emergency Department Start: 03-03-2022 End: 03-03-[address] Sharon [facility] Start: 03-01-2022 End: 03-01-[address] Sharon Osorio Work Phone: [facility] Work Phone: Start: 03-01-2022 End: 03-01-[address] Sharon Osorio Work Phone: [facility] Start: 03-01-[address] Sharon Osorio Work Phone: [facility] Start: 03-01-2022 End: 03-01-2022 Encounter for general adult medical examination without abnormal findings Dr. Sharon Osorio Work Phone: [facility] Internal Medicine Start: 03-01-2022 End: 03-01-[address] Sharon Osorio Work Phone: [facility] Start: 12-24-2021 End: 12-24-[address] Sharon Osorio Work Phone: [facility] Start: 12-20-2021 End: 12-20-[address] Sharon Osorio Work Phone: [facility] Start: 12-03-2021 End: 12-03-[address] Sharon Osorio [facility] Start: 11-25-2021 End: 11-25-2021 Patient encounter procedure [facility] Start: 08-11-2021 ambulatory Alice Cheema RN Work Phone: [employer] Comment on above: [facility] [employer] ([employer] ) Start: 07-05-2021 End: 07-05-[address] Sharon Osorio Work Phone: [facility]-Laboratory Start: 06-23-2021 End: 06-23-[address] Sharon Osorio Work Phone: [facility] Start: 03-31-2021 End: 03-31-[address] Sharon Osorio Work Phone: [facility] Int Med Virtual Start: 08-01-2018 End: 08-04-2018 Evaluation and management of inpatient JIA VICTORIA Facility:[facility] Procedures Date Procedure Procedure Detail [...] Treatment Date Care Activity Detail Author Start: 11-14-2024 CBC W Auto Differential panel - Blood [facility] Start: 11-14-2024 Comprehensive metabolic 2000 panel - Serum or Plasma [facility] Start: 11-14-2024 Hemoglobin A1c/Hemoglobin.total in Blood [facility] Start: 08-03-2023 LIPID SCREEN LIPID SCREEN [facility] Start: 12-12-2022 Respiratory microbial culture Respiratory Culture [facility] Start: 12-12-2022 Bacteria identified in Sputum by Culture [facility] Start: 03-12-2022 Oxygen therapy [facility] Work Phone: Start: 03-12-2022 [facility] Work Phone: Start: 12-16-2021 Influenza vaccination INFLUENZA (Season Ended) [facility] Start: 08-04-2021 DIABETES SCREEN DIABETES SCREEN [facility] Start: 04-17-2021 ADVANCE DIRECTIVE DISCUSSION ADVANCE DIRECTIVE DISCUSSION [facility] Start: 07-04-2019 ANNUAL PCP TEAM CHRONIC DISEASE VISIT ANNUAL PCP TEAM CHRONIC DISEASE VISIT [facility] Start: 11-11-2018 Colonoscopy COLONOSCOPY [facility] Start: 11-11-2018 COLORECTAL CANCER SCREENING COLORECTAL CANCER SCREENING [facility] Start: 03-18-2001 Urine microalbumin profile DTAP,TDAP,TD (1 - Tdap) [facility] Start: 1999 SHINGRIX VACCINE (1 of 2) SHINGRIX VACCINE (1 of 2) [facility] Start: 1994 COLOGUARD (FIT-DNA) COLOGUARD (FIT-DNA) [facility] Start: [address] COLONOGRAPHY [facility] Start: 1994 FECAL OCCULT BLOOD FECAL OCCULT BLOOD [facility] Start: 1994 SIGMOIDOSCOPY SIGMOIDOSCOPY [facility] Start: 1967 BP CONTROLLED (<130/80) BP CONTROLLED (<130/80) [facility] Start: 1954 COVID-19 VACCINE (1) COVID-19 VACCINE (1) [facility] Acid fast bacilli culture [facility] Work Phone: Alanine aminotransfe rase [Enzymatic activity/volume] in Serum or Plasma [facility] Albumin [Mass/volume ] in Serum or Plasma [facility] Alkaline phosphatase [Enzymatic activity/volume] in Serum or Plasma [facility] Anion gap in Serum or Plasma [facility] Bacteria identified in Sputum by Culture [facility] Work Phone: Bilirubin, total measurement [facility] BUN/Creatinine ratio [facility] Calcium [Mass/volume ] in Serum or Plasma [facility] Carbon dioxide, tota l [Moles/volume] in Central venous blood [facility] Creatinine [Mass/vol ume] in Serum or Plasma [facility] CT Chest [facility] Work Phone: CT Chest [facility] CT Chest [facility] Electrocardiographic procedure [facility] Erythrocyte mean cor puscular volume determination [facility] Glucose [Mass/volume ] in Serum or Plasma [facility] Hematocrit [Volume F raction] of Blood [facility] Hemoglobin [Mass/vol ume] in Blood [facility] Leukocytes [#/volume] in Blood [facility] Mean corpuscular hem oglobin concentration determination [facility] Mean corpuscular hem oglobin determination [facility] Measurement of renal function [facility] Measurement of respi ratory function [facility] Measurement of respi ratory function [facility] Neutrophil count [facility] Neutrophil percent differential count [facility] NM Heart Views W str ess and W radionuclide IV [facility] Patient referral [facility] Work Phone: Platelets [#/volume] in Blood [facility] Potassium measurement [facility] Red blood cell count [facility] Red cell distributio n width determination [facility] Serum chloride measurement [facility] Sodium measurement [facility] Testosterone measurement [facility] Total protein measurement [facility] Urea nitrogen [Mass/ volume] in Serum or Plasma [facility] Walking distance 6 minutes [address] [facility] Immunizations Immunization Date Immunization Notes Care Provider [facility] 01-16-2023 influenza, injectabl e, quadrivalent, preservative free Dr. Sharon Osoiro Work Phone: [facility] 03-01-2022 influenza, injectabl e, quadrivalent, preservative free Dr. Sharon Osorio Work Phone: [facility] 03-01-2022 influenza, seasonal, injectable Dr. Sharon Osorio Work Phone: [facility] 12-08-[address] Sharon Osorio Work Phone: [facility] 02-03-2020 Fluad Quad (65yr up)(PF) 60 mcg (15 mcg x 4)/0.5mL IM syringe (flu vac Dr. Sharon Osorio Work Phone: [facility] Work Phone: 02-03-2020 influenza, injectabl e, quadrivalent, preservative free Dr. Sharon Osorio Work Phone: [facility] 02-03-2020 influenza, seasonal, injectable Dr. Sharon Osorio Work Phone: [facility] 01-18-2019 pneumococcal conjuga te vaccine, [address] Sharon Osorio Work Phone: [facility] 01-18-2019 pneumococcal vaccine , unspecified formulation Dr. Sharon Osorio Work Phone: [facility] Work Phone: 01-18-2019 Fluad 2019-20 65yr up(PF)45 mcg(15 mcgx3)/0.5 mL intramuscular syringe (flu vac Dr. Sharon Osorio Work Phone: [facility] Work Phone: 12-27-2017 influenza, high dose seasonal, preservative-free Alice Cheema RN Work Phone: [facility] 02-23-2016 influenza, high dose seasonal, preservative-free Alice Cheema RN Work Phone: [facility] 02-23-2016 pneumococcal conjuga te vaccine, 13 valent Alice Cheema RN Work Phone: [facility] 06-25-2014 pneumococcal polysaccharide vaccine, 23 valent Alice Cheema RN Work Phone: [facility] 06-19-2002 pneumococcal polysaccharide vaccine, 23 valent Alice Cheema RN Work Phone: [facility] Work Phone: 03-17-2001 tetanus and diphther ia toxoids, adsorbed, preservative free, for adult use (2 Lf of tetanus toxoid and 2 Lf of diphtheria toxoid) Alice Cheema RN Work Phone: [facility] Work Phone: Payers Date Payer Category Payer Self-pay [id number] 2023 Medicaid [id number] 2023 Unknown [id number] 2018 Medicare HUMANA MEDICARE HUMANA MEDICARE PPO [id number] 2018-Present [phone] [address] [address] [place] [address] PPO [id number] 1950 Unknown [id number] Medicare [id number] Medicare [id number] Medicare [id number] Unknown [id number] Unknown [id number] Unknown [id number] [id number] Unknown [id number] Unknown [id number] [id number] Unknown [id number] [id number] Unknown [id number] [id number] Unknown [id number] [id number] Unknown [id number] [id number] Unknown [id number] [id number] Unknown [id number] [id number] Unknown [id number] [id number] Unknown [id number] [id number] Unknown [id number] [id number]2 Unknown [id number] [id number] Unknown [id number] [id number] Unknown [id number] Social History Date Type Detail Facility Start: 06-23-2021 End: 04-20-2023 Tobacco smoking status KSIS Unknown if ever smoked [facility] Start: 11-11-2019 Non-smoker [facility] Start: 1950 Sex Assigned At Male [facility] Start: 06-05-2024 Tobacco smoking stat us KSIS Ex-smoker [facility] Work Phone: Start: 01-12-1962 End: 06-10-2001 History of tobacco use Current smoker [facility] Work Phone: Start: 01-12-1962 End: 06-10-2001 History of tobacco use Cigarette Smoker [facility] Work Phone: Start: 07-27-2018 Alcohol intake Current non-dr weed sprayer of alcohol (finding) [facility] Start: 01-12-2018 Tobacco Comment Parents smoked in childhood home. [facility] Start: 1950 Sex Assigned At Not on file [facility] Mental Status Date Assessment Result Facility 03-12-2022 Cognitive function Level Of Cons ciousness Awake;Alert;Appropriate;Follow s Commands [facility] Work Phone: Clinical Notes 08-01-2018 to 10-10-2024 Note Date & Type Note Facility 10-10-2024 Procedure note [facility] 10-02-2024 Evaluation note Diagnosis Onset Date Resolution Shortness of breath chronic October 02, 2024 11:03am Smoking greater than 40 pack years chronic October 02, 2024 11:03am 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 October 02, 025 11:03am [facility] Work Phone: 1(898) 535-204806-18-2025 Evaluation note* Diagnosis Onset Date Resolution Status Admit Date Shortness of breath chronic October 02, 2024 11:03am Smoking greater than 40 pack years chronic October 02, 2024 11:03am 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 October 02, 2024 11:03am Erectile dysfunction acute November 14, 2024 2:01pm Borderline type 2 diabetes mellitus chronic November 14, 2024 2:01pm Coronary artery disease chronic J jin 2024 2:01pm Essential hypertension chronic Ju ly 2024 2:01pm Restless leg syndrome chronic Oct 2:01pm 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 November 14, 2024 2:01pm [facility] Work Phone: 1(217) 839-248606-18-2025 Evaluation note* Diagnosis Onset Date Resolution Status Admit Date Shortness of breath chronic October 02, 2024 11:03am Smoking greater than 40 pack years chronic October 02, 2024 11:03am 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 October 02, 2024 11:03am Erectile dysfunction acute November 14, 2024 2:01pm Borderline type 2 diabetes mellitus chronic November 14, 2024 2:01pm Coronary artery disease chronic J jin 2024 2:01pm Essential hypertension chronic Ju ly 2024 2:01pm Restless leg syndrome chronic Oct 2:01pm 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 Author Type: Registered Nurse Type: Progress Notes Filed: 08/11/2021 2:12 PM Note Text: [facility] Enrollment Provider Action/FYI: No PCP Patient referred by: [facility] Eddie Contact made with patient: Patient not outreached at this time. Closing: Patient does not meet criteria. PCC to reassess patient in a month. [facility] of Present illness Narrative* Alice Cheema RN - 08/11/2021 2:11 PM EDT [facility] Enrollment Provider Action/FYI: No PCP Patient referred by: [facility] Eddie Contact made with patient: Patient not outreached at this time. Closing: Patient does not meet criteria. PCC to reassess patient in a month. END OUTREACH [facility] NotePatient Outreach ([facility]) ANITA GUZMAN ([id number]) 1950 M Date Time Provider Department 08/11/21 ALICE CHEEMA During your visit today, we recorded the following information about you: Alice Cheema RN 08/11/2021 2:12 PM Signed [facility] Enrollment Provider Action/FYI: No PCP Patient referred by: [facility] Eddie Contact made with patient: Patient [...] [I31.3] 08/01/2018 08/04/2018 Coronary artery disease of [place] artery with s*08/01/2018 08/04/2018 HTN (hypertension) [I10] 08/01/2018 COPD (chronic obstructive pulmonary disease) (H*08/08/2005 Encounter Status:Closed by ALICE CHEEMA on 08/11/21[facility] 08-26-2020 NoteHNO ID: [id number] Author: Teo De La Cruz RN Service: ? Author Type: Registered Nurse Type: Progress Notes Filed: 08/26/2020 1:42 PM Note Text: [facility] Enrollment Provider Action/FYI: NO PCP Patient referred by: PCC/PCP referral Contact made with patient: Patient not outreached at this time. Closing: Patient does not meet criteria. PCC to reassess patient in a month. [facility] NotePatient Outreach ([facility]) ANITA GUZMAN ([id number]) 1950 M Date Time Provider Department 08/26/20 TEO DE LA CRUZ During your visit today, we recorded the following information about you: Teo De La Cruz RN 08/26/2020 1:42 PM Signed [facility] Enrollment Provider Action/FYI: NO PCP Patient referred [...] [I31.3] 08/01/2018 08/04/2018 Coronary artery disease of [place] artery with s*08/01/2018 08/04/2018 HTN (hypertension) [I10] 08/01/2018 COPD (chronic obstructive pulmonary disease) (H*08/08/2005 Encounter Status:Closed by TEO DE LA CRUZ on 08/26/20[facility] 08-01-2018 History of Past illness Narrative* Problem Noted Date Resolved Date Angina pectoris, crescendo 08/01/201808/04 S/P drug eluting coronary stent placement 201808/04/2018 Pericardial effusion 08/01/2018 08/04/2018 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 08/01/2018 08/04/2018 documented as of this encounter (statuses as of 08/11/2021) [facility]Reason for visit Narrative* Chief Complaint SMOKER 6 M FU COVID POSITIVE/WANTS MEDS COVID-19 MED REFILL 3 M FU Reason for Visit Stage 3 severe COPD by GOLD classification COVID-19 Encounter for screening for COVID-19 Encounter for preventative adult health care examination Restless leg syndrome Atherosclerosis of coronary artery of [place] heart without angina pectoris Essential hypertension Stage 3 severe COPD by GOLD classification Smoking greater than 40 pack years Stage 3 severe COPD by GOLD classification [facility] Work Phone: Chief complaint+Reason for visit Narrative* Chief Complaint SMOKER 6 M FU COVID POSITIVE/WANTS MEDS COVID-19 MED REFILL 3 M FU DIZZINESS Reason for Visit Stage 3 severe COPD by GOLD classification COVID-19 Encounter for screening for COVID-19 Encounter for preventative adult health care examination Restless leg syndrome Atherosclerosis of coronary artery of [place] heart without angina pectoris Essential hypertension Stage 3 severe COPD by GOLD classification Smoking greater than 40 pack years Stage 3 severe COPD by GOLD classification [facility] Work Phone: evaluation note* Diagnosis Onset Date Resolution Status 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 Atherosclerosis of coronary artery of [place] heart without angina pectoris chronic Essential hypertension chron ic Hyperlipidemia chronic Presence of stent in coronary artery August 01, 2018 chronic [facility] Work Phone: Evaluation noteNo assessment information available [facility] Work Phone: Evaluation note* Diagnosis Onset Date Resolution Status 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 COVID-19 acute Encounter for screening for COVID-19 acute Encounter for preventative a dult health care examination acute Restless leg syndrome acute Atherosclerosis of coronary artery of [place] heart without angina pectoris chronic Essential hypertension chron ic 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 Smoking greater than 40 pack years chronic 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 [facility] Work Phone: Evaluation note* Diagnosis Onset Date Resolution Status Emphysema with both acute and chronic bronchitis acute [facility] Work Phone: Evaluation note* Diagnosis Onset Date Resolution Status Emphysema with both acute and chronic bronchitis acute Depression with anxiety buffer chrome margarita Smoking greater than 40 pack years chronic Stage 3 severe COPD by GOLD classification [facility] Work Phone: Evaluation note* Diagnosis Onset Date Resolution Status Flu vaccine need acute Essential hypertension chron ic Hyperlipidemia chronic Restless leg syndrome chroni c 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 Benign prostatic hyperplasia chronic Essential hypertension chron ic Hyperlipidemia chronic Restless leg syndrome chroni c Stage 3 severe COPD by GOLD classification [facility] Work Phone: Reason for referral (narrative)No reason for referral information [facility] Services Work Phone: Summary Purpose Family [...] No March 30 021 3:49pm 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 No March 30, 2021 3:49pm Documents on File Type Date Recorded Patient Lidder Expl anation Advance Directive(s) Advance Directive(s) 08/01/2018 6:27 AM Advance Directive Response Recorded Date/ Time Advance Directives No March 2:49pm Living Will No March 30 021 2:49pm 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 No March 30, 2021 2:49pm Advance Directive Response Recorded Date/ Time Advance Directives No March 2:49pm Living Will No March 12 11:27am 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 No March 12, 2022 11:27am Advance Directive Response Recorded Date/ Time Advance Directives No November 14 1:41pm Living Will No November 14, 2022 1:41pm 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 No November 14 1:41pm Advance Directive Response Recorded Date/ Time Advance Directives No November 14 12:41pm Living Will No November 14, 2022 12:41pm 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 No November 14 12:41pm Advance Directive Response Recorded Date/ Time Advance Directives No May 3:28pm Hospital Course Note HNO ID: [id number] Author: Diya hogue ([place]) [place] Service: Cardiovascular [...] GOLD classification Atherosclerosis of coronary artery of [place] heart without angina pectoris Essential hypertension Hyperlipidemia [...] of breath October 02, 2024 11:0 3am Chief Complaint Admit Date Shortness of breath October 02, 2024 11:0 3am J44.9 - Chronic obstructive pulmonary [place] [facility] October 08, 2024 12:14pm J44.9 - Chronic obstructive pulmonary di [place], [facility] October 10, 2024 10:07am Reason for Visit Admit Date Shortness of breath October 02, 2024 11:0 3am Smoking greater than 40 pack years October 02, 2024 11:03am Stage 3 severe COPD by GOLD classificati on October 02, 2024 11:03am Chief Complaint Admit Date Shortness of breath October 02, 2024 11:0 3am J44.9 - Chronic obstructive pulmonary [place] [facility] October 08, 2024 12:14pm J44.9 - Chronic obstructive pulmonary di [place], [facility] October 10, 2024 10:07am 6 M FU November 14, 2024 2:01 pm Chief Complaint Admit Date Shortness of breath October 02, 2024 11:0 3am J44.9 - Chronic obstructive pulmonary di sease, uns October 08, 2024 12:14pm J44.9 - Chronic obstructive pulmonary di sease, uns October 10, 2024 10:07am 6 M FU November 14, 2024 2:01 pm 2 M FU November 26, 2024 10 :40am Reason for Visit Admit Date Shortness of breath October 02, 2024 11:0 3am Smoking greater than 40 pack years October 02, 2024 11:03am Stage 3 severe COPD by GOLD classificati on October 02, 2024 11:03am Erectile dysfunction November 14, 2024 2:0 1pm Borderline type 2 diabetes mellitus November 14, 2024 2:01pm Coronary artery disease November 14, 2024 2:01pm Essential hypertension November 14, 2024 2 :01pm Restless leg syndrome November 14, 2024 2: 01pm Stage 3 severe COPD by GOLD classificati on November 14, 2024 2:01pm Reason for Visit Admit Date Shortness of breath October 02, 2024 11:0 3am Smoking greater than 40 pack years October 02, 2024 11:03am Stage 3 severe COPD by GOLD classificati on October 02, 2024 11:03am Erectile dysfunction November 14, 2024 2:0 1pm Borderline type 2 diabetes mellitus November 14, 2024 2:01pm Coronary artery disease November 14, 2024 2:01pm Essential hypertension November 14, 2024 2 :01pm Restless leg syndrome November 14, 2024 2: 01pm Stage 3 severe COPD by GOLD classificati on November 14, 2024 2:01pm Chronic hypoxic respiratory failure Aug[facility] 2024 10:40am Smoking greater than 40 pack years Augus t 2024 10:40am Stage 3 severe COPD by GOLD classificati on November 26, 2024 10:40am Chief Complaint Admit Date Shortness of breath October 02, 2024 11:0 3am J44.9 - Chronic obstructive pulmonary di sease, uns October 08, 2024 12:14pm J44.9 - Chronic obstructive pulmonary di sease, uns October 10, 2024 10:07am 6 M FU November 14, 2024 2:01 pm 2 M FU November 26, 2024 10 :40am CHEST PAIN December 03, 2024 12 :37pm Additional Source Comments (unrecognized sect ion and content) No Status Records FoundNo Status Records FoundNo Status Records FoundNo Status Records Found INFORMATION SOURCE (unrecogn ized section and content) DATE CREATED AUTHOR 08/04/2018 [facility] DATE CREATED AUTHOR AUTHOR'S ORGANIZ ATION 09[facility]05/2018 [facility] DATE CREATED AUTHOR AUTHOR'S ORGANIZ ATION 08/14/2021 [facility] DATE CREATED AUTHOR AUTHOR'S ORGANIZ ATION 12/10/2024 [facility] Goals (unrecognized section and content) [...] or prosecute any alcohol or drug abuse patient.[facility] Reason for Visit (unrecogniz ed section [...] MD Primary Care Provider Active Sharon Hester PLUGGER WORKER, PLUGGER WORKER-C Attending Provider, Referrin g Provider Active Team Status: Inactive Member Role Status Dates Dr. Sharon Osorio MD Primary Care Provider, Refer ring Provider Active Sharon Hester NP, PLUGGER WORKER-C Attending Provider Active Team Status: Inactive Member [...] June 05, 2024 End: June 05, 2024 TC WheelerC Attending Provider Active Star t: June 05, [...] 2024 End: October 02, 2024 Sharon Hester NP PLUGGER WORKER-C Attending Provider Active Start: October 02, 2024 End: October 02, 2024 Team Status: Active Member Role/Relationship Status Dates Dr. Sharon Osorio MD Primary Care Provider Active Team Status: Inactive Member Role/Relationship Status Dates Dr. Sharon Osorio MD Primary Care Provider Active Start: October 02, 2024 End: October 02, 2024 Dr. Sharon Osorio MD Referring Provider Active Start: October 02, 2024 End: October 02, 2024 Sharon Hester NP, PLUGGER WORKER-C Attending Provider Active Start: October 02, 2024 End: October 02, 2024 Team Status: Inactive Member Role/Relationship Status Dates Dr. Sharon Osorio MD Primary Care Provider Active Start: October 08, 2024 End: October 08, 2024 Sharon Hester PLUGGER WORKER, PLUGGER WORKER-C Attending Provider Active Start: October 08, 2024 End: October 08, 2024 Sharon Hester PLUGGER WORKER, PLUGGER WORKER-C Referring Provider Active Start: October 08, 2024 End: October 08, 2024 Team Status: Active Member Role/Relationship Status Dates Dr. Sharon Osorio MD Primary Care Provider Active Start: October 10, 2024 Sharon Hester PLUGGER WORKER, PLUGGER WORKER-C Referring Provider Active Start: October 10, 2024 Sharon Hester PLUGGER WORKER, PLUGGER WORKER-C Other Provider Active Start: October 10, 2024 Dr. Elgin Trujillo DO Attending Provider Active S tart: October 10, 2024 Team Status: Inactive Member Role/Relationship Status Dates Dr. Sharon Osorio MD Primary Care Provider Active Start: November 14, 2024 End: November 14, 2024 Dr. Sharon Osorio MD Attending Provider Active Start: November 14, 2024 End: November 14, 2024 Dr. Sharon Osorio MD Referring Provider Active Start: November 14, 2024 End: November 14, 2024 Team Status: Active Member Role/Relationship Status Dates Dr. Sharon Osorio MD Primary Care Provider Active Start: November 14, 2024 Dr. Sharon Osorio MD Attending Provider Active Start: November 14, 2024 Dr. Sharon Osorio MD Referring Provider Active Start: November 14, 2024 Team Status: Inactive Member Role/Relationship Status Dates Dr. Sharon Osorio MD Primary Care Provider Active Start: November 26, 2024 End: November 26, 2024 Dr. Sharon Osorio MD Referring Provider Active Start: November 26, 2024 End: November 26, 2024 Sharon Hester PLUGGER WORKER, PLUGGER WORKER-C Attending Provider Active Start: November 26, 2024 End: November 26, 2024 Team Status: Inactive Member Role/Relationship Status Dates Dr. Sharon Osorio MD Primary Care Provider Active Start: November 14, 2024 End: November 14, 2024 Dr. Sharon Osorio MD Attending Provider Active Start: November 14, 2024 End: November 14, 2024 Dr. Sharon Osorio MD Referring Provider Active Start: November 14, 2024 End: November 14, 2024 Team Status: Inactive Member Role/Relationship Status Dates Dr. Sharon Osorio MD Primary Care Provider Active Start: December 03, 2024 End: December 03, 2024 Dr. Sharon Osorio MD Attending Provider Active Start: December 03, 2024 End: December 03, 2024 Dr. Sharon Osorio MD Referring Provider Active Start: December 03, 2024 End: December 03, 2024 FOR RECORDS PERTAINING TO PATIENTS WHO [...] BE BASED ON THE PRIMARY CLINICAL RECORDS. [facility] provides no warranty or guarantee of the accuracy or completeness of information in this document.
--- NOTE | 2024-12-16 14:26 | STRESSREP ---
Stress Test Report Pharmacologic myocardial perfusion stress test. 74-year-old man with a history of chest pain. Resting EKG demonstrates normal sinus rhythm with a rate of 72 bpm. Resting blood pressure is 138/62 mmHg. 0.4 mg of regadenoson was infused per usual protocol followed by rapid intravenous saline flush injection. Continuous EKG monitoring was performed. The maximum heart rate was 93 bpm which was 64% of max impacted heart rate the maximum workload was 1 metabolic equivalent. At rest there were no ST or T wave changes noted to suggest ischemia and at peak infusion nonspecific ST changes were noted which did not meet the criteria for ischemia. No clinical angina is noted. The final blood pressure was 138/62 mmHg. Myocardial perfusion protocol. 12 mCi of technetium 99m sestamibi was injected at rest. 0.4 mg of regadenoson was infused per usual protocol. At peak infusion 36 mCi of technetium 99m sestamibi was injected stress images were obtained stress and rest images were reconstructed and compared in the short axis vertical long and horizontal long axis. Gated images were also obtained. Perfusion SPECT analysis: Review of the stress images demonstrate normal uptake of tracer noted in all areas of the myocardium. The resting images similar demonstrated normal uptake of tracer noted in all areas of the myocardium. No areas of reversibility are noted to suggest ischemia and no previous infarct is noted. Gated SPECT analysis: The gated ejection fraction is 80%. Conclusion: Normal pharmacologic myocardial perfusion stress test. Preserved ejection fraction.
== END | disposition home or self-care (01) ==
LOC: CVS 06:50
PROVIDERS: PCP Internal Medicine; Referring Provider Internal Medicine; Visit Provider Internal Medicine
DX: R07.9 Chest pain, unspecified (principal); I25.10 Atherosclerotic heart disease of native coronary artery without angina pectoris
CPT/HCPCS: 78452; 93017; A9500; A4216; J2785

== ENCOUNTER → 2024-12-25 | Outpatient (CLI) | payer MEDICARE, SELFPAY ==
--- NOTE | 2024-12-25 12:50 | CT_ITS ---
PROCEDURE: LOW DOSE CT LUNG SCREENING 12/25/2024 REASON FOR EXAM: SMOKING Former smoker. Patient has smoked 1-1/2 pack per days 4 many years. TECHNIQUE: Procedure Code: CTLUNGSCREEN Modality: CT Procedure: LOW DOSE CT LUNG SCREENING Coronal and Sagittal reconstruction series were provided. One or more dose reduction techniques were used (e.g., Automated exposure control, adjustment of the mA and/or kV according to patient size, use of iterative reconstruction technique). REFERENCE LINK: [employer] Lung-RADS RADIATION DOSE SUMMARY: CTDlvol: 2.01 mGy DLP: 77.51 mGycm COMPARISON: Prior study dated December 25, 2023. FINDINGS: PULMONARY NODULES: (Only nodules >3mm are reported) Nodules described below are on series 1 unless otherwise specified. Pulmonary Nodules: No suspicious nodule seen. Hardware:None Lymph Nodes:Small benign-appearing mediastinal lymph nodes. Heart and Vasculature:The heart is nonenlarged. Coronary Artery Calcifications: Present Lungs and Airways: Advanced emphysematous changes are present. Pleura:No pleural effusion Upper Abdomen:Unremarkable Bones:Degenerative changes of the thoracic spine. CT/Low Dose CT Lung Screening IMPRESSION: No suspicious nodules are seen. Coronary artery calcification (CAC) is is present Lung-RADS Category: 2 BENIGN (BASED ON IMAGING FEATURES OR INDOLENT BEHAVIOR). RECOMMEND 12-MONTH SCREENING LDCT. Other Significant Findings: Reading Location: [id number]
== END | disposition home or self-care (01) ==
LOC: CT 12:50
PROVIDERS: PCP Internal Medicine; Referring Provider Nurse Practitioner Acute Care; Visit Provider Nurse Practitioner Acute Care
DX: F17.210 Nicotine dependence, cigarettes, uncomplicated (principal)
CPT/HCPCS: 71271

== ENCOUNTER → 2025-01-08 | Outpatient (CLI) | payer MEDICARE, SELFPAY ==
--- OUTSIDE RECORDS SUMMARY | 2025-01-08 07:37 | XMS RPT_ITS | CCD ---
[facility] Organization [facility] Providers Care Fish Liver Sorter Name Role Phone JIA VICTORIA Admitting Unavailable Michael Arroyo Primary Care Unavailable UNKNOWN, PROVIDER Attending Unavailable KALLIE RAMEY Consulting Unavailable Dr. Sharon Osorio Primary Care Provider [phone] Dr. Sharon Osorio Referring Provider [phone] ELEN Banuelos Attending Provider Unavailab abbe Slater PELT DROPPER, PELT DROPPER-C Meg Attending Provider Unavailable Primary Care Provider UnavailDr. Sharon Aguilera Primary Care Provider [phone] Dr. Sharon Osorio Referring Provider [phone] Dr. Sam Hi Attending Provider ELEN Toney Attending Provider Terri PELT DROPPER, PELT DROPPER-C Michael Attending Provider [phone] Richard PELT DROPPER, PELT DROPPER-C Sharon Attending Provider Dr. Sharon Osorio Primary Care Provider [phone] Dr. Sharon Osorio Referring Provider [phone] ELEN Anthony Attending Provider Richard BABCOCK, PELT DROPPER-C Sharon Attending Provider Dr. Sharon Osorio Primary Care Provider [phone] Dr. Sharon Osorio Attending Provider [phone] Dr. Sharon Osorio Referring Provider [phone] Dr. Sam Hi Attending Provider [phone] Jo MARTINEZ, Dr. Herrera Primary Care Provider Jo MARTINEZ, Dr. Herrera Referring Provider [phone] Ashley PELT DROPPER-C, Sergio Attending Provider Fabio MARTINEZ, Dr. Ontiveros Attending Provider [phone] Richard PELT DROPPER-C, Sharon Attending Provider Jo MARTINEZ, Dr. Herrera Primary Care Provider Jo MARTINEZ, Dr. Herrera Referring Provider [phone] Richard PELT DROPPER-C, Sharon Referring Provider Richard PELT DROPPER-C, Sharon Other Provider [phone] Dr. Elgin Trujillo DO Attending Provider Jo MARTINEZ, Dr. Herrera Attending Provider [phone] Fabio MARTINEZ, Dr. Ontiveros Attending Provider [phone] Jo MARTINEZ, Dr. Herrera Other Provider Oleghe, Efewongbe Primary Care Unavailable Oleghe, Efewongbe Referring Unavailable Weston Mccarthy Attending Unavailable Richard PELT DROPPERSharon Referring Unavailable Richard PELT DROPPERSharon Attending Unavailable Oleghe, Efewongbe Primary Care Unavailable Oleghe, Efewongbe Primary Care Unavailable Oleghe, Efewongbe Referring Unavailable Oleghe, Efewongbe Consulting Unavailable Wseton Mccarthy Attending Unavailable Oleghe, Efewongbe Primary Care Unavailable Oleghe, Efewongbe Referring Unavailable Hester PELT DROPPERSharon Attending Unavailable [facility] PELT DROPPER, Bala Attending Unavailable Oleghe, Efewongbe Primary Care Unavailable Oleghe, Efewongbe Referring Unavailable Oleghe, Efewongbe Attending Unavailable Oleghe, Efewongbe Primary Care Unavailable Oleghe, Efewongbe Referring Unavailable Oleghe, Efewongbe Primary Care Unavailable Vick Mccarthyril Attending Unavailable Hester PELT DROPPERSharon Attending Unavailable Oleghe, Efewongbe Primary Care Unavailable Oleghe, Efewongbe Referring Unavailable Oleghe, Efewongbe Primary Care Unavailable Oleghe, Efewongbe Referring Unavailable Sergio Ramirez Attending Unavailable Oleghe, Efewongbe Primary Care Unavailable Oleghe, Efewongbe Attending Unavailable Oleghe, Efewongbe Referring Unavailable Elgin Trujillo Attending Unavailable Richard PELT DROPPER, Sharon Consulting Unavailable Richard PELT DROPPER, Sharon Referring Unavailable Oleghe, Efewongbe Primary Care Unavailable Oleghe, Efewongbe Attending Unavailable Oleghe, Efewongbe Primary Care Unavailable Oleghe, Efewongbe Referring Unavailable Oleghe, Efewongbe Primary Care Unavailable Richard PELT DROPPER, Sharon Referring Unavailable Richard PELT DROPPER, Sahron Attending Unavailable Oleghe, Efewongbe Primary Care Unavailable Oleghe, Efewongbe Attending Unavailable Oleghe, Efewongbe Referring Unavailable Oleghe, Efewongbe Primary Care Unavailable Oleghe, Efewongbe Referring Unavailable Oleghe, Efewongbe Attending Unavailable Oleghe, Efewongbe Primary Care Unavailable Oleghe, Efewongbe Referring Unavailable Oleghe, Efewongbe Attending Unavailable Richard PELT DROPPER, Sharon Referring Unavailable Oleghe, Efewongbe Primary Care Unavailable Richard PELT DROPPER, Sharon Attending Unavailable Medications Current Medications Medication Drug Class(es) Dates Sig (Normalized) Sig (Original) [id number] 200 actuat albuterol 0.09 mg/actuat metered dose [...] aspirin 81 mg delayed release oral tablet (15 sources) Platelet Aggregation Inhibitor, Nonsteroidal Anti-inflammatory Drug Start: 9 take 1 tablet by mouth once daily Aspirin (Adult Aspirin Regimen) 81 mg tablet,delayed release (DR/EC) Active 81 mg PO DAILY August 06, 2018 12:00am Comment on above: Take 81 mg by mouth once daily. Budesonide-Glycopy r-Formoterol (4 sources) Corticosteroid, beta2-Adrenergic Agonist Start: 5 Budesonide-Glycopyr -Formoterol (Breztri Aerosphere) 160-9-4.8 mcg/actuation HFA aerosol inhaler Active 2 NMA INHALATION TWICE A DAY 10.7 6 November 26, 2024 12:00am diazePAM 2 mg oral tablet (11 sources) Benzodiazepine Start: 2 take 1 tablet by mouth three times daily as needed Diazepam 2 MG tablet Active 2 mg PO 3 TIMES DAILY NEEDED as needed for Vertigo 10 0 March 12, 2022 1:00am ferrous sulfate 325 mg oral tablet (20 sources) Start: take 1 tablet by mouth once daily Ferrous Sulfate (Ferosul) 325 mg (65 mg iron) tablet Active 325 mg PO daily October 02, 2024 12:00am Start: 08-26-2021 End: 05-16-2024 take 1 tablet by mouth once daily Ferrous Sulfate 325 mg (65 mg iron) tablet Discontinued 325 mg PO DAILY 90 April 05, 2024 12:47pm May 16, 2024 2:55pm Start: 04-30-2019 End: 06-23-2021 take 1 tablet by mouth once daily Ferrous Sulfate 325 mg (65 mg iron) tablet Discontinued 325 mg PO DAILY 90 May 25, 2021 11:21am June 23, 2021 2:11pm Multivitamin (One Daily Multivitamin) tablet (14 sources) Start: 06-23-2021 take 1 tablet by [...] Albuterol Sulfate 90 mcg/actuation HFA aerosol inhaler (7 sources) Start: 08-06-2018 End: 12-24-2018 Albuterol Sulfate [...] mg tablet Discontinued 10 mg PO DAILY 90 February 19, 2024 5:28pm October 31, 2024 10:42am Comment on above: Take 1 tablet by [facility] once daily. amoxicillin 875 mg / clavulanate 125 mg oral tablet (20 sources) Penicillin-class Antibacterial Start: 06-12-19 End: 10-03-19 Amoxicillin-Pot Clavulanate 875-125 mg tablet Discontinued 1 {tbl} PO TWICE A DAY 20 June 12, 2024 1:00am October 02, 2024 11:08am Start: 09-25-2023 End: 05-16-2024 Amoxicillin-Pot Clavulanate 875-125 mg tablet Discontinued 1 {tbl} PO TWICE A DAY 20 November 05, 2023 10:15am May 16, 2024 [...] tablet Discontinued 40 mg PO DAILY 90 February 19, 2024 5:28pm March 30, 2024 6:27pm Comment on above: Take 1 tablet by [facility] daily at bedtime. azithromycin 250 mg oral [...] through 5 benzonatate 100 mg oral capsule (12 sources) Non-narcotic Antitussive Start: 12-20-2021 End: 01-16-2023 take 2 capsules by mouth three times daily as needed for cough Benzonatate 100 mg capsule Discontinued 200 mg PO THREE TIMES A DAY as needed for cough 30 December 20, 2021 12:00am January 16, 2023 [...] capsule Discontinued 10 mg PO BEDTIME 90 1 February 16, 2024 12:57pm August 19, 2024 [...] 2:17pm cyclobenzaprine hydrochloride 10 mg oral tablet (14 sources) Muscle Relaxant Start: 12-31-2014 End: 08-06-2018 take 1 tablet by mouth at bedtime Cyclobenzaprine 10 MG tablet Discontinued 10 mg PO AT BEDTIME December 31, 2014 12:00am August 06, 2018 11:27am Disability Placard (8 sources) Start: 03-16-2023 Disability Placard Active 0 .ROUTE .MEDSUPPLY 1 March 16, 2023 1:00am Stage 3 severe [...] mg PO TWICE A DAY 10 5 June 05, 2024 1:00am June 09, 2024 1:00am June 10, 2024 1:12am Start: 12-25-2023 End: 05-16-2024 take 1 capsule by mouth twice daily Doxycycline Monohydrate 100 mg capsule Discontinued 100 mg PO TWICE A DAY 20 December 25, 2023 12:00am May 16, 2024 2:55pm Start: 08-09-2022 End: 11-24-2022 take 1 capsule by mouth twice daily Doxycycline Hyclate 100 mg capsule Discontinued 100 mg PO TWICE A DAY 20 August 09, 2022 12:00am November 24, 2022 12:28pm Start: 03-25-2019 End: 04-08-2019 take 1 tablet by mouth twice daily Doxycycline Hyclate 100 mg tablet Discontinued 100 mg PO TWICE A DAY 20 March 25, 2019 1:00am April 08, 2019 3:38pm dutasteride 0.5 mg oral capsule (20 sources) 5-alpha Reductase Inhibitor Start: 04-16-2019 End: 09-20-2024 take 1 capsule by mouth once daily Dutasteride 0.5 mg capsule Discontinued 0.5 mg PO DAILY 90 1 February 19, 2024 5:28pm September 20, 2024 1:15pm Start: 04-16-2019 End: 04-16-2019 Dutasteride 0.5 mg capsule D iscontinued mg PO April 16, 2019 1:00am April 16, 2019 2:52pm Start: 04-16-2019 End: 04-16-2019 Dutasteride Discontinued MG PO April 16, 2019 12:00am April 16, 2019 1:52pm esomeprazole 40 mg delayed release oral capsule (14 sources) Proton Pump Inhibitor Start: 11-07-2019 End: 12-16-2019 take 1 capsule by mouth once daily Esomeprazole Magnesium 40 mg capsule,delayed release(DR/EC) Discontinued 40 mg PO DAILY 90 3 November 07, 2019 12:00am December 16, 2019 1:13pm Fluad Quad [id number](65yr up)(PF) 60 mcg (15 mcg x 4)/0.5mL [...] 12:54pm December 16, 2019 12:14pm Fluticasone Propion-Salmeterol (14 sources) Corticosteroid, beta2-Adrenergic Agonist Start: 02-26-2019 End: [...] 26, 2019 1:00am April 08, 2019 3:49pm Chpfxvnvxzy-Ryvafbobg-Ossjbj er (20 sources) Anticholinergic, Corticosteroid, beta2-Adrenergic Agonist Start: 04-07-2023 End: 04-12-2023 Peclbscnyxx-Ntnaybakp-Chwpyd er 100-62.5-25 mcg blister with device Discontinued 1 NMA INHALATION DAILY 60 2 April 07, 2023 3:50pm April 12, 2023 3:09pm Start: 04-07-2023 End: 04-12-2023 Hdmxroeihis-Gooooslkp-Auskca er 100-62.5-25 mcg blister with device Discontinued 1 NMA INHALATION DAILY 60 April 07, 2023 3:50pm April 12, 2023 3:09pm Start: 04-07-2023 End: 04-12-2023 Helqpccixkc-Dtfemmwik-Oitspo er Discontinued 1 EACH INHALATION DAILY 60 April 07, 2023 2:50pm April 12, 2023 2:09pm Start: 09-14-2022 End: 04-07-2023 Xamtjkshbow-Zoqcfbswl-Zlyljv er 100-62.5-25 mcg blister with device Discontinued 1 NMA INHALATION DAILY 60 5 September 14, 2022 1:06pm April 07, 2023 3:50pm Start: 09-14-2022 End: 04-07-2023 Jncwapnppgs-Xroocdmca-Yaoqio er 100-62.5-25 mcg blister with device Discontinued 1 NMA INHALATION DAILY 60 September 14, 2022 1:06pm April 07, 2023 3:50pm Start: 09-14-2022 End: 04-07-2023 Pohmyahxqbb-Scuxzuxea-Otovjn er Discontinued 1 EACH INHALATION DAILY 60 September 14, 2022 12:06pm April 07, 2023 2:50pm Start: 09-14-2022 Fluticasone-Um eclidin-Vilanter Active 1 EACH INHALATION DAILY 60 September 14, 2022 1:06pm Start: 2022 End: 09-14-2022 Nguznipvovy-Wlkathgse-Junnwy er 100-62.5-25 mcg blister with device Discontinued 1 NMA INHALATION DAILY 60 5 2022 3:48pm September 14, 2022 1:07pm Start: 2022 End: 09-14-2022 Dlfkfwgkemz-Pgyxqjgge-Alrjju er 100-62.5-25 mcg blister with device Discontinued 1 NMA INHALATION DAILY 60 2022 3:48pm September 14, 2022 1:07pm Start: 2022 End: 09-14-2022 Ytmqplzaysf-Wrlfzmwix-Hhssca er Discontinued 1 EACH INHALATION DAILY 2022 2:48pm September 14, 2022 12:07pm Start: 2022 End: 09-14-2022 Hqdazhhrrvk-Sjlfssjen-Rgrrvq er Discontinued 1 EACH INHALATION DAILY 2022 3:48pm September 14, 2022 1:07pm Start: 2022 Fluticasone-Um eclidin-Vilanter Active 1 EACH INHALATION DAILY 60 2022 2:48pm Start: 08-26-2021 End: 2022 Mltbvmmepwo-Aqmoytwqk-Vilfjj er 100-62.5-25 mcg blister with device Discontinued 1 NMA INHALATION DAILY 60 5 August 26, 2021 9:32am 2022 3:48pm Start: 08-26-2021 End: 2022 Sjwwbopgoiw-Mcvwiumdm-Fyoohl er 100-62.5-25 mcg blister with device Discontinued 1 NMA INHALATION DAILY 60 August 26, 2021 9:32am 2022 3:48pm Start: 08-26-2021 End: 2022 Ckjwunyashd-Meauuucmf-Oakbqh er Discontinued 1 EACH INHALATION DAILY 60 August 26, 2021 9:32am 2022 3:48pm Start: 08-26-2021 End: 2022 Xzfnbpjhqsf-Vrhaiutdu-Cjfxlw er Discontinued 1 EACH INHALATION DAILY 60 August 26, 2021 8:32am 2022 2:48pm Start: 08-26-2021 Fluticasone-Um eclidin-Vilanter Active 1 EACH INHALATION DAILY 60 August 26, 2021 9:32am Start: 02-18-2021 End: 08-26-2021 Zfddhixjipe-Isngeiopd-Hpgwcw er 100-62.5-25 mcg blister with device Discontinued 1 NMA INHALATION DAILY 60 5 February 18, 2021 1:44pm August 26, 2021 9:32am Start: 02-18-2021 End: 08-26-2021 Mzekvvbytaf-Odllmtquq-Oibhzl er 100-62.5-25 mcg blister with device Discontinued 1 NMA INHALATION DAILY 60 February 18, 2021 1:44pm August 26, 2021 9:32am Start: 02-18-2021 End: 08-26-2021 Wfckwpzadmq-Euvujaapd-Ypqcdg er Discontinued 1 EACH INHALATION DAILY 60 February 18, 2021 12:44pm August 26, 2021 8:32am Start: 02-18-2021 End: 08-26-2021 Dsedyczoygb-Nsyswmpvd-Dzruhu er Discontinued 1 EACH INHALATION DAILY 60 February 18, 2021 1:44pm August 26, 2021 9:32am Start: 02-18-2021 Fluticasone-Um eclidin-Vilanter Active 1 EACH INHALATION DAILY 60 February 18, 2021 1:44pm Start: 08-24-2020 End: 02-18-2021 Zjomlqqqeku-Idielplip-Pyblls er 100-62.5-25 mcg blister with device Discontinued 1 NMA INHALATION DAILY 60 August 24, 2020 12:22pm February 18, 2021 1:44pm Start: 08-24-2020 End: 02-18-2021 Bgflfzektem-Mwbmjyfub-Totqzq er 100-62.5-25 mcg blister with device Discontinued 1 NMA INHALATION DAILY 60 August 24, 2020 12:22pm February 18, 2021 1:44pm Start: 08-24-2020 End: 02-18-2021 Hngafzfwvnl-Mxnrswoqg-Oupyow er Discontinued 1 EACH INHALATION DAILY 60 August 24, 2020 11:22am February 18, 2021 12:44pm Start: 08-24-2020 End: 02-18-2021 Eimintrbzhx-Qwlqqeaor-Fettdg er Discontinued 1 EACH INHALATION DAILY 60 August 24, 2020 12:22pm February 18, 2021 1:44pm Start: 08-22-2020 End: 08-24-2020 Goqztohrqxr-Kkifbiyqr-Eqgbzx er 100-62.5-25 mcg blister with device Discontinued 1 NMA INHALATION DAILY 60 August 22, 2020 11:14am August 24, 2020 12:22pm Start: 08-22-2020 End: 08-24-2020 Rhlgxpvwyqu-Zdfxwakjv-Upagpi er 100-62.5-25 mcg blister with device Discontinued 1 NMA INHALATION DAILY 60 August 22, 2020 11:14am August 24, 2020 12:22pm Start: 08-22-2020 End: 08-24-2020 Xbnmuywwqjw-Vptodbrqh-Ayzrot er Discontinued 1 EACH INHALATION DAILY 60 August 22, 2020 10:14am August 24, 2020 11:22am Start: 08-22-2020 End: 08-24-2020 Nqutjewbeft-Iztgruhyf-Gzqdpf er Discontinued 1 EACH INHALATION DAILY 60 August 22, 2020 11:14am August 24, 2020 12:22pm Start: 02-03-2020 End: 08-22-2020 Kyuuedqozxg-Hjzddjuwq-Rysear er 100-62.5-25 mcg blister with device Discontinued 1 NMA INHALATION DAILY 60 5 February 03, 2020 2:32pm August 22, 2020 11:14am Start: 02-03-2020 End: 08-22-2020 Wtcthspgjdd-Higtpzzqn-Urkagv er 100-62.5-25 mcg blister with device Discontinued 1 NMA INHALATION DAILY 60 February 03, 2020 2:32pm August 22, 2020 11:14am Start: 02-03-2020 End: 08-22-2020 Moatekdqony-Rtulsatmm-Bhncgj er Discontinued 1 EACH INHALATION DAILY 60 February 03, 2020 1:32pm August 22, 2020 10:14am Start: 02-03-2020 End: 08-22-2020 Gonzghbwimn-Muijjkxct-Apftmz er Discontinued 1 EACH INHALATION DAILY 60 February 03, 2020 2:32pm August 22, 2020 11:14am Start: 11-15-2019 End: 02-03-2020 Iwslorxwzct-Hjfkpfysy-Heuzqi er 100-62.5-25 mcg blister with device Discontinued 1 NMA INHALATION DAILY 60 2 November 15, 2019 10:47am February 03, 2020 2:33pm Start: 11-15-2019 End: 02-03-2020 Emldtkjnnmd-Clwjkyxcd-Tgogqn er 100-62.5-25 mcg blister with device Discontinued 1 NMA INHALATION DAILY 60 November 15, 2019 10:47am February 03, 2020 2:33pm Start: 11-15-2019 End: 02-03-2020 Veqzfeiwccl-Vzkygywwm-Kmjicm er Discontinued 1 EACH INHALATION DAILY 60 November 15, 2019 9:47am February 03, 2020 1:33pm Start: 11-15-2019 End: 02-03-2020 Ghefklpjhnn-Gkskkqvnz-Bqrrju er Discontinued 1 EACH INHALATION DAILY 60 November 15, 2019 10:47am February 03, 2020 2:33pm Start: 09-02-2019 End: 11-15-2019 Wrourzkhwkl-Xwxdabrvv-Pwllvb er Discontinued 1 PUFF IH 1500 September 02, 2019 10:43am November 15, 2019 10:48am Start: 09-02-2019 End: 11-15-2019 Kydtuviplav-Yzgutaqaq-Dlnbdl er 1 EACH blister with device Discontinued 1 NMA IH 1500 September 02, 2019 12:00am November 15, 2019 10:48am Start: 09-02-2019 End: 11-15-2019 Smyxhdpbsvr-Olqwjjncv-Pbokdk er Discontinued 1 PUFF IH 1500 September 01, 2019 11:00pm November 15, 2019 9:48am Start: 09-02-2019 End: 11-15-2019 Wuguagbdsmb-Uemxozsal-Rvclhx er Discontinued 1 PUFF IH 1500 September 02, 2019 12:00am November 15, 2019 10:48am Start: 04-08-2019 End: 07-09-2019 Gngxkfwsddp-Tgmkfowhb-Zywcis er (Trelegy Ellipta) 100-62.5-25 mcg blister with device Discontinued 1 INH INHALATION daily 60 April 08, 2019 3:49pm July 09, 2019 1:28pm administer at approximately the same time(s) each day Start: 04-08-2019 End: 07-09-2019 Rdqpexazcik-Chljmwdnz-Xurqlt er (Trelegy Ellipta) 100-62.5-25 mcg blister with device Discontinued 1 NMA INHALATION daily 60 3 April 08, 2019 1:00am July 09, 2019 1:28pm Chronic obstructive pulmonary disease, unspecified administer at approximately the same time(s) each day Start: 04-08-2019 End: 07-09-2019 Eilqtviaikp-Iphhowhnc-Dsetfz er (Trelegy Ellipta) 100-62.5-25 mcg blister with device Discontinued 1 NMA INHALATION daily 60 April 08, 2019 1:00am July 09, 2019 1:28pm administer at approximately the same time(s) each day Start: 04-08-2019 End: 07-09-2019 Fsssezrfobv-Abwrlpqqy-Myjmoa er (Trelegy Ellipta) 100-62.5-25 mcg blister with device Discontinued 1 INH INHALATION daily 60 April 08, 2019 12:00am July 09, 2019 12:28pm administer at approximately the same time(s) each day Start: 04-08-2019 End: 07-09-2019 Xwhmqjrakwv-Wyzpgetvg-Dbtkiw er (Trelegy Ellipta) 100-62.5-25 mcg blister with [...] 5 02/01/2019 Active Start: 08-07-2018 End: 02-26-2019 Tscgmsxixtz-Ztyetvrof-Tjfiuk er (Trelegy Ellipta) 100-62.5-25 mcg blister with device Discontinued 1 INH INHALATION DAILY August 07, 2018 2:53pm February 26, 2019 12:07pm Start: 08-07-2018 End: 02-26-2019 Otyrykelsub-Owkrimedd-Ioxdus er (Trelegy Ellipta) 100-62.5-25 mcg blister with device Discontinued 1 NMA INHALATION DAILY August 07, 2018 12:00am February 26, 2019 12:07pm Start: 08-07-2018 End: 02-26-2019 Wsxbdnbbtcb-Rpgxhtinj-Gfjxwz er (Trelegy Ellipta) 100-62.5-25 mcg blister with device Discontinued 1 INH INHALATION DAILY August 06, 2018 11:00pm February 26, 2019 11:07am Start: 08-07-2018 End: 02-26-2019 Wjaqsiulbve-Nardprptx-Hexehv er (Trelegy Ellipta) 100-62.5-25 mcg blister with device Discontinued 1 INH INHALATION DAILY August 07, 2018 12:00am February 26, 2019 12:07pm Start: 06-30-2018 End: 08-07-2018 Rcwhwrkwzgx-Yrkodbrwf-Egplmb er Discontinued 1 EACH IH DAILY June 30, 2018 1:51pm August 07, 2018 3:09pm Start: 06-30-2018 End: 08-07-2018 take 1 dose by inhalation once daily Brcmfqsqjdb-Defgcbdsc-Rmhdkqzl 1 EACH blister with device Discontinued 1 NMA IH DAILY June 30, 2018 12:00am August 07, 2018 3:09pm Start: 06-30-2018 End: 08-07-2018 Nojoqydbomg-Euwmezyxj-Zgwxkf er Discontinued 1 EACH IH DAILY June 29, 2018 11:00pm August 07, 2018 2:09pm Start: 06-30-2018 End: 08-07-2018 Xfvjqrgrxsn-Bymcqtzdi-Xiypwl er Discontinued 1 EACH IH DAILY June 30, 2018 12:00am August 07, 2018 3:09pm Comment on above: Inhale 1 Puff as ins tructed once daily as needed. Fluticasone-Umeclidin -Vilanter (20 sources) Start: 11-22-2024 End: 11-26-2024 Ltqpdcrwzxp-Vrxttlilu-Wev anter (Trelegy Ellipta) 200-62.5-25 mcg blister with device Discontinued 1 NMA INHALATION DAILY 60 2 November 22, 2024 10:10am November 26, 2024 11:15am Start: 08-15-2024 End: 11-22-2024 Cycttodzhro-Ajahlzalx-Gvyemi er (Trelegy Ellipta) 200-62.5-25 mcg blister with [...] 15, 2024 4:51pm Start: 02-19-2024 End: 08-15-2024 Heaqiqsijlm-Dhgabbmmj-Oripdm er (Trelegy Ellipta) 200-62.5-25 mcg blister with device Discontinued 1 NMA INHALATION DAILY 60 3 February 19, 2024 5:28pm August 15, 2024 4:52pm Start: 02-19-2024 End: 08-15-2024 Ohjnudwmikf-Vvoykfdxd-Pujzeo er (Trelegy Ellipta) 200-62.5-25 mcg blister with device Discontinued 1 NMA INHALATION DAILY 60 February 19, 2024 5:28pm August 15, 2024 4:52pm Start: 09-10-2023 End: 02-19-2024 Rdsniwkytnr-Euujiazud-Vpufpb er (Trelegy Ellipta) 200-62.5-25 mcg blister with device Discontinued 1 NMA INHALATION DAILY 60 0 September 10, 2023 4:38pm February 19, 2024 5:29pm Start: 09-10-2023 End: 02-19-2024 Msyfakhodbf-Yutjreeap-Edxvrw er (Trelegy Ellipta) 200-62.5-25 mcg blister with device Discontinued 1 NMA INHALATION DAILY 60 September 10, 2023 4:38pm February 19, 2024 5:29pm Start: 08-08-2023 End: 09-10-2023 Rffklbeafgr-Rylbgtjpo-Urgfrq er (Trelegy Ellipta) 200-62.5-25 mcg blister with device Discontinued 1 NMA INHALATION DAILY 60 5 August 08, 2023 11:46am September 10, 2023 4:39pm Start: 08-08-2023 End: 09-10-2023 Kdorhpiopas-Phkiyhawh-Lcjgeq er (Trelegy Ellipta) 200-62.5-25 mcg blister with device Discontinued 1 NMA INHALATION DAILY 60 August 08, 2023 11:46am September 10, 2023 4:39pm Start: 04-12-2023 End: 08-08-2023 Avhbjcxbgrp-Izoywggyv-Xyemmq er (Trelegy Ellipta) 200-62.5-25 mcg blister with device Discontinued 1 NMA INHALATION DAILY 60 5 April 12, 2023 1:00am August 08, 2023 11:46am Start: 04-12-2023 End: 08-08-2023 Ldqvvrlvcol-Lbcenyhal-Mhkrwo er (Trelegy Ellipta) 200-62.5-25 mcg blister with [...] Comment on above: Take 1 capsule by [facility] three times daily for 30 days. 12 [...] hr Discontinued 15 mg PO DAILY 45 0 July 06, 2023 12:25pm January 08, 2024 [...] 2021 2:09pm methylPREDNISolone 4 mg oral tablet (19 sources) Corticosteroid Start: 12-25-2023 End: 05-16-2024 take 1 tablet by mouth once Methylprednisolone (Medrol (Maxwell)) 4 mg tablets,dose pack Discontinued 0 PO per package directions 21 0 December 25, 2023 12:00am May 16, [...] release(DR/EC) Discontinued 40 mg PO DAILY 60 1 August 05, 2020 12:00am November 19, 2020 [...] 2:19pm pravastatin sodium 40 mg oral tablet (14 sources) HMG-CoA Reductase Inhibitor Start: 5 End: 9 take 1 tablet by mouth at bedtime [...] Disc ontinued 10 mg PO daily 30 September 25, 2023 12:00am November 05, 2023 9:33am take 4 tabs for three days, then 3 tabs for three days, then 2 tabs for three days, then 1 tab for 3 days Start: 11-14-2022 End: 12-07-2022 Prednisone 10 mg tablet Disc ontinued 10 mg PO daily 30 November 24, 2022 12:29pm December 07, 2022 2:18pm take 4 tabs for three days, then 3 tabs for three days, then 2 tabs for three days, then 1 tab for 3 days Start: 03-31-2021 End: 06-23-2021 take 2 tablets by mouth once daily Prednisone 20 mg tablet Discontinued 40 mg PO DAILY 10 March 31, 2021 1:00am June 23, 2021 [...] 3 days tadalafil 5 mg oral tablet (15 sources) Phosphodiesterase 5 Inhibitor Start: 08-06-2018 End: [...] prior intercourse.). ticagrelor 90 mg oral tablet (15 sources) Start: 08-02-19 End: 08-09-19 take 1 tablet by mouth twice daily Ticagrelor 90 mg tablet Discontinued 90 mg PO TWICE A DAY August 06, 2018 12:00am August 08, 2018 10:42am Comment on above: Take 1 tablet by christa twice daily. Tiotropium Higbee (14 sources) Anticholinergic Start: 02-27-20 End: 04-08-20 19 take 1 puff(s) by inhalation once daily Tiotropium Higbee (Spiriva Respimat) 2.5 mcg/actuation mist Discontinued 2 PUFF INHALATION DAILY February 26, 2019 12:08pm April 08, 2019 3:49pm Start: 02-26-2019 End: 04-08-2019 take 2.5 ug by inhalation once daily Tiotropium Higbee (Spiriva Respimat) 2.5 mcg/actuation mist Discontinued 2 NMA INHALATION DAILY 4 February 26, 2019 1:00am April 08, 2019 3:49pm Start: 02-26-2019 End: 04-08-2019 take 2.5 ug by inhalation once daily Tiotropium Higbee (Spiriva Respimat) 2.5 mcg/actuation mist Discontinued 2 NMA INHALATION DAILY February 26, 2019 1:00am April 08, 2019 3:49pm Start: 02-26-2019 End: 04-08-2019 take 1 puff(s) by inhalation once daily Tiotropium [place]bee (Spiriva Respimat) 2.5 mcg/actuation mist Discontinued 2 PUFF INHALATION DAILY February 26, 2019 12:00am April 08, 2019 2:49pm Start: 02-26-2019 End: 04-08-2019 take 1 puff(s) by inhalation once daily Tiotropium Higbee (Spiriva Respimat) 2.5 mcg/actuation mist Discontinued 2 [...] needed. traMADol hydrochloride 50 mg oral tablet (14 sources) Opioid Agonist Start: 9 End: 9 [...] mg tablet Discontinued 0 .ROUTE .COMPLEX 90 1 November 08, 2022 11:11pm November 28, 2023 12:14pm take 1 tablet by mouth at bedtime if needed valACYclovir 1000 mg oral tablet (14 sources) Herpesvirus Nucleoside Analog DNA Polymerase Inhibitor, [...] [Unspecified abdominal pain] 03-04-2021 Episodic Acute bronchitis (7 sources) Acute bronchitis; Translations: [Acute bronchitis, unspecified] 09-19-2023 Episodic Anxiety disorders (16 sources) Mixed anxiety and depressive disorder; Translations: [Other specified anxiety disorders] Onset: 9 03-09-2009 Chronic Asthma (8 sources) Allergic asthma; Translations: [Unspecified asthma, uncomplicated] Onset: 6 07-09-2009 Chronic Chronic obstructive pulmonary disease and bronchiectasis (20 sources) Pulmonary emphysema; Translations: [Emphysema, unspecified] Onset: 6 Chronic Conditions associated with dizziness or vertigo (11 sources) Benign paroxysmal positional vertigo; Translations: [Benign paroxysmal vertigo, unspecified ear] 03-20-2022 Episodic Coronary atherosclerosis and other heart disease (20 sources) Coronary arteriosclerosis; Translations: [Atherosclerotic heart disease of douglas coronary artery without angina pectoris] Onset: 5 Chronic Diabetes mellitus without complication (16 sources) Hyperglycemia; Translations: [Hyperglycemia, unspecified] Onset: 5 11-13-2023 Episodic Disorders of lipid metabolism (18 sources) Hyperlipidemia; Translations: [Hyperlipidemia, unspecified] Onset: 5 Chronic Esophageal disorders (14 sources) Gastroesophageal reflux disease; Translations: [Gastro-esophageal reflux disease without esophagitis] 11-19-2020 Chronic Essential hypertension (20 sources) Essential hypertension; Translations: [Essential (primary) hypertension] Onset: 9 Chronic Hemorrhoids (1 source) Internal hemorrhoids; Translations: [Other hemorrhoids] 07-09-2009 Episodic Hyperplasia of prostate (16 sources) Benign prostatic hyperplasia; Translations: [Benign prostatic hyperplasia without lower urinary tract symptoms] Onset: 5 10-10-2018 Chronic Immunizations and screening for infectious disease (20 sources) Needs influenza immunization; Translations: [Encounter for immunization] Episodic Inflammatory conditions of male genital organs (14 sources) Epididymitis; Translations: [Epididymitis] 09-06-2018 Episodic Mood disorders (1 source) Depressive disorder; Translations: [Depression] Onset: 9 03-09-2009 Chronic Nonspecific chest pain (20 sources) Musculoskeletal chest pain; Translations: [Other chest pain] Onset: 5 09-06-2018 Episodic Osteoarthritis (20 sources) Arthritis; Translations: [Unspecified osteoarthritis, unspecified site] Onset: 6 02-23-2016 Chronic Other gastrointestinal disorders (14 sources) Dilatation of intestine; Translations: [Dilation of intestine] 09-05-2018 Episodic Other gastrointestinal disorders (7 sources) Dysphagia; Translations: [Dysphagia, unspecified] 11-13-2023 Episodic Other hereditary and degenerative nervous system conditions (17 sources) Restless legs; Translations: [Restless legs syndrome] Onset: 5 06-25-2014 Chronic Other hereditary and degenerative nervous system conditions (4 sources) Restless legs syndrome; Translations: [Restless legs syndrome (RLS)] Chronic Other lower respiratory disease (20 sources) Dyspnea; Translations: [Shortness of breath] 11-18-2019 Episodic Other male genital disorders (11 sources) Male erectile dysfunction, unspecified; Translations: [Impotence of organic origin] Onset: 5 06-25-2014 Chronic Other male genital disorders (14 sources) History of male erectile disorder; Translations: [Personal history of other diseases of male genital organs] 07-09-2019 Episodic Other male genital disorders (14 sources) Adult hydrocele; Translations: [Hydrocele, unspecified] 09-06-2018 Episodic Other non-traumatic joint disorders (14 sources) Shoulder pain; Translations: [Pain in unspecified shoulder] 11-18-2019 Episodic Other screening for suspected conditions (not mental disorders or infectious disease) (2 sources) Patient encounter status; Translations: [Encounter for screening for malignant neoplasm of colon] Onset: 9 07-09-2009 Episodic Residual codes; unclassified (14 sources) History of vaccination; Translations: [Personal history of other drug therapy] 11-19-2020 Episodic Residual codes; unclassified (14 sources) Insomnia; Translations: [Insomnia, unspecified] 02-18-2021 Episodic Respiratory failure; insufficiency; arrest (adult) (6 sources) Chronic hypoxemic respiratory failure; Translations: [Chronic respiratory failure with hypoxia] 11-26-2024 Chronic Comment on above: 2 LPM at rest, 4 LPM on exertion Substance-related disorders (20 sources) Cigarette smoker ; Translations: [Nicotine dependence, cigarettes, uncomplicated] Onset: 5 Chronic Unclassified (14 sources) neck and back pain 11-18-2019 Unclassified (1 source) Cough, unspecified; Translations: [Cough, unspecified] Onset: 5 Viral infection (20 sources) 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; 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] Episodic Past or Other Problems Problem Classification Problem Date Documented Da te Episodic/Chronic Coronary atherosclerosis and other heart disease (15 sources) Stented coronary artery; Translations: [Presence of coronary angioplasty implant and graft] Onset: 08-01-2018 Episodic Comment on above: 5.0 mm X 32 mm Evero limus-eluding [place] chromium stent to mid RCA, and 4.0 mm X 19 mm polytetrafluoroethylene-covered stent (to seal coronary artery perforation site) Other upper respiratory infections (8 sources) Upper respiratory infection; Translations: [Acute upper respiratory infection, unspecified] Onset: 01-07-2024 11-05-2023 Episodic Char-; endo-; and myocarditis; cardiomyopathy (except that caused by tuberculosis or sexually transmitted disease) (15 sources) Pericardial effusion; Translations: [Cardiac tamponade] Onset: 07-29-2018 07-09-2019 Episodic Residual codes; unclassified (14 sources) History of cardiovascular surgery; Translations: [Other specified postprocedural states] Onset: 08-01-2018 10-10-2018 Episodic Residual codes; unclassified (1 source) Pain, unspecified; Translations: [Pain, unspecified] Onset: 01-07-2024 Episodic Results Test Name Value Interpretation Reference Range Facility Low Dose CT Lung Screeningon 12-25-[address] Lung Screening [facility] Imaging Services [address] [place], [place] [address] Low Dose CT Lung Screening MR#: [id number] Acct: [id number] Name: ANITA GUZMAN Rep #: [id number] : 1950 M 74 From: Earl borrego MD PCP: Dr. Sharon Osorio MD Status: [facility] CLI Study: Low Dose CT Lung Screening Date of Exam: 12/25 Exam# [id number] Ordering Dr: Sharon Hester P[employer]T DROPPER PELT DROPPER-C PROCEDURE: LOW DOSE CT LUNG SCREENING 12/25/2024 REASON FOR EXAM: SMOKING Former smoker. Patient has smoked 1-1/2 pack per days 4 many years. TECHNIQUE: Procedure Code: CTLUNGSCREEN Modality: CT Procedure: LOW DOSE CT LUNG SCREENING Coronal and Sagittal reconstruction series were provided. One or more dose reduction techniques were used (e.g., Automated exposure control, adjustment of the mA and/or kV according to patient size, use of iterative reconstruction technique). REFERENCE LINK: everyArt Lung-RADS RADIATION DOSE SUMMARY: CTDlvol: 2.01 mGy DLP: 77.51 mGycm COMPARISON: Prior study dated December 25, 2023. FINDINGS: PULMONARY NODULES: (Only nodules >3mm are reported) Nodules described below are on series 1 unless otherwise specified. Pulmonary Nodules: No suspicious nodule seen. Hardware:None Lymph Nodes:Small benign-appearing mediastinal lymph nodes. Heart and Vasculature:The heart is nonenlarged. Coronary Artery Calcifications: Present Lungs and Airways: Advanced emphysematous changes are present. Pleura:No pleural effusion Upper Abdomen:Unremarkable Bones:Degenerative changes of the thoracic spine. CT/Low Dose CT Lung Screening IMPRESSION: No suspicious nodules are seen. Coronary artery calcification (CAC) is is present Lung-RADS Category: 2 BENIGN (BASED ON IMAGING FEATURES OR INDOLENT BEHAVIOR). RECOMMEND 12-MONTH SCREENING LDCT. Other Significant Findings: Reading Location: [facility] CC: [employer]PER-C Sharon Hester; Dr. Sharon Osorio MD Supervisor Silver[employer] Department: Signed Normal [facility] Cardiovascular stress test r eportOrdered By: Weston Mccarthy on 12-16-2024 Study report [facility] Cardiovascular Services [address] [address] MR#: [id number] Acct: [id number] Name: ANITA GUZMAN Rep #: [id number] : 1950 74 From: Weston Mccarthy MD Primary Care: Dr. Sharon Osorio MD [facility] at[facility]: REG CLI Referring Dr: Sharon Osorio MD Sex: M C Stress Test Report Pharmacologic myocardial perfusion stress test. 74-year-old man with a history of chest pain. Resting EKG demonstrates normal sinus rhythm with a rate of 72 bpm. Resting blood pressure is 138/62 mmHg. 0.4 mg of regadenoson was infused per usual protocol followed by rapid intravenous saline flush injection. Continuous EKG monitoring was performed. The maximum heart rate was 93 bpm which was 64% of maximpacted heart rate the maximum workload was 1 metabolic equivalent. At rest there were no ST or T wave changes noted to suggest ischemia and at peak infusion nonspecific ST changes were noted which did not meet the criteria for ischemia. No clinical angina is noted. The final blood pressure was 138/62 mmHg. Myocardial perfusion protocol. 12 mCi of technetium 99m sestamibi was injected at rest. 0.4 mg of regadenoson was infused per usual protocol. At peak infusion 36 mCi of technetium 99m sestamibi was injected stress images were obtained stress and rest images were reconstructed and compared in the short axis vertical long and horizontal long axis. Gated images were also obtained. Perfusion SPECT analysis: Review of the stress images demonstrate normal uptake of tracer noted in all areas of the myocardium. The resting images similar demonstrated normal uptake of tracer noted in all areas of the myocardium. No areas of reversibility are noted to suggest ischemia and no previous infarct is noted. Gated SPECT analysis: The gated ejection fraction is 80%. Conclusion: Normal pharmacologic myocardial perfusion stress test. Preserved ejection fraction. 12/16/241426 Date _ Weston Mccarthy MD CC: Dr. Sharon Osorio MD ~ Date Dictated: 12/16/241425 Date Transcribed: 12/16/241425 Supervisor Silvering Department: [place] Signed [facility] Work Phone: Stress Reporton 12-16-2024 Stress Report [facility] Cardiovascular Services [address] [place] [address] MR#: [id number] Acct: [id number] Name: ALVINANITA PEREYRA Rep #: [id number] : 1950 74 From: Weston Mccarthy MD Primary Care: Dr. Sharon Osorio MD Status: REG CLI Referring Dr: Sharon Osorio MD Sex: M C Stress Test Report Pharmacologic myocardial perfusion stress test. 74-year-old man with a history of chest pain. Resting EKG demonstrates normal sinus rhythm with a rate of 72 bpm. Resting blood pressure is 138/62 mmHg. 0.4 mg of regadenoson was infused per usual protocol followed by rapid intravenous saline flush injection. Continuous EKG monitoring was performed. The maximum heart rate was 93 bpm which was 64% of max impacted heart rate the maximum workload was 1 metabolic equivalent. At rest there were no ST or T wave changes noted to suggest ischemia and at peak infusion nonspecific ST changes were noted which did not meet the criteria for ischemia. No clinical angina is noted. The final blood pressure was 138/62 mmHg. Myocardial perfusion protocol. 12 mCi of technetium 99m sestamibi was injected at rest. 0.4 mg of regadenoson was infused per usual protocol. At peak infusion 36 mCi of technetium 99m sestamibi was injected stress images were obtained stress and rest images were reconstructed and compared in the short axis vertical long and horizontal long axis. Gated images were also obtained. Perfusion SPECT analysis: Review of the stress images demonstrate normal uptake of tracer noted in all areas of the myocardium. The resting images similar demonstrated normal uptake of tracer noted in all areas of the myocardium. No areas of reversibility are noted to suggest ischemia and no previous infarct is noted. Gated SPECT analysis: The gated ejection fraction is 80%. Conclusion: Normal pharmacologic myocardial perfusion stress test. Preserved ejection fraction. 12/16/241426 Date Weston Mccarthy MD CC: Dr. Sharon Osorio MD Date Dictated: 12/16/241425 Date Transcribed: 12/16/241425 Supervisor [employer]ing Department: [place] Signed Normal [facility] Electrocardiogram reportOrde red By: Weston Mccarthy on 12-04-2024 EKG study [facility] Cardiovascular Services [address] [place] [address] 12 Lead EKG 12/03/24 1253 MR#: [id number] Acct: [id number] Name: ANITA GUZMAN Rep #:[id number] : 1950 74 From: Weston Mccarthy MD Attending Dr: Dr. Sharon Osorio MD Status: REG CLI Ordering Dr: Sharon Osorio MD Date: 12/03/24 Location: [facility] Sex: M C Admitted: Test Reason : CHEST PAIN Blood Pressure : */* mmHG Vent. Rate : 75 BPM Atrial Rate : 75 BPM P-R Int : 98 ms QRS Dur : 130 ms QT Int : 396 ms P-R-T Axes : 57 41 57 degrees QTcB Int : 442 ms Sinus rhythm with short NH Right bundle branch block Abnormal ECG Confirmed by WESTON MCCARTHY MD ([id number]), food expeditor ADAN MOSS ([id number]) on 12/04/2024 9:34:41 AM Referred By: Sharon Osorio Confirmed By: WESTON MCCARTHY MD 12/04/24 0934 Date _ Weston Mccarthy MD CC: Dr. Sharon Osorio MD ~ Signed [facility] Other Phone: 12 Lead EKGon 12-03-2024 12 Lead EKG [facility] Cardiovascular Services [address] [place] [address] 12 Lead EKG 12/03/24 1253 MR#: [id number] Acct: [id number] Name: ANITA GUZMAN Rep #: [id number] : 1950 74 From: Weston Mccarthy MD Attending Dr: Dr. Sharon Osorio MD Status: REG CLI Ordering Dr: Sharon Osorio MD Date: 12/03/24 Location: [facility] Sex: M C Admitted: Test Reason : CHEST PAIN Blood Pressure : */* mmHG Vent. Rate : 75 BPM Atrial Rate : 75 BPM P-R Int : 98 ms QRS Dur : 130 ms QT Int : 396 ms P-R-T Axes : 57 41 57 degrees QTcB Int : 442 ms Sinus rhythm with short NH Right bundle branch block Abnormal ECG Confirmed by WESTON MCCARTHY MD ([id number]), food expeditor ADAN MOSS ([id number]) on 12/04/2024 9:34:41 AM Referred By: Sharon Osorio Confirmed By: WESTON MCCARTHY MD 12/04/24 0934 Date Weston Mccarthy MD CC: Dr. Sharon Osorio MD Signed Normal [facility] Pulmonary Visit Reporton Pulmonary Visit Report [facility] [place] [address] [place], [place] [id number] OFFICE VISIT Date of Service: 11/26/24 MR#: [id number] Acct: [id number] Name: ANITA GUZMAN Rep #: [id number] : 1950 Provider: LEONIDAS Hester Age/Sex: 74/M Location: [facility] [place] Status: Signed Assessment and Plan Assessment and [...] Follow up in 6 weeks. Medications: New bwyqdjgvqb-rahocoyk-ywcgm terol 160-9-4.8 mcg/actuation (Breztri Aerosphere) 2 inhalations inhalation BID 10.7 grams 6RF Discontinued lmloudzajtr-ftfzazwgf-fsg anter 200-62.5-25 mcg (Trelegy Ellipta) Discontinued Reason: Order Changed 1 inh inhalation DAILY 60 ea 2RF Plan Details Additional Comments: This note was generated with COPsyncation software. It may contain incorrect words, spelling, [...] M FU Chief Complaint: congest, DALY, cough Resin Coater Required: No DME Vendor: [employer] Accompanied by: Self Is patient in pain?: [...] 11/26/24 Rx (more content not included)... Normal [facility] Absolute lymphocyte countOrd ered By: roslyn Osoiro on 11-14-2024 Lymphocytes Auto (Unsp spec) [#/Vol] 0.86 10*3/uL 0.83-4.51 [facility] Absolute neutrophil countOrd ered By: [facility] Osorio on 11-14-2024 Neutrophils (Bld) [#/Vol] 7.2 10*3/uL 2.0-7.7 [facility] Anion gap in Serum or Plasma Ordered By: eriktall timberscody Osorio on 11-14-2024 Anion gap [Moles/Vol] 12 mmol/L 5-15 [facility] Automated lymphocyte count a s percentage of total leukocytesOrdered By: Sharon Osorio on 11-14-2024 Lymphocytes/100 WBC Auto (Unsp spec) 9.4 % Low 19-41 [facility] BUN/creatinine ratioOrdered By: [facility] Jimenezkaren on 11-14-2024 Urea nitrogen/Creatinine [Mass ratio] 17.0 mg/mg 10-20 [facility] Basophil percentageOrdered B y: Sharon Osorio on 11-14-2024 Basophils/100 WBC (Bld) 0.5 % 0-1 [facility] Bilirubin, totalOrdered By: Sharon Osorio on 11-14-2024 Bilirubin [Mass/Vol] 0.58 mg/dL 0.00-1.30 [facility] CBC W/Diff, Automatedon 10-17 Absolute Lymph 0.86 X10 3/uL Normal 0.83-4.51 [facility] Comment on above: Performed By: #### L 100.0100, L501.9985, L500.4050 ####[facility] [address] [place], [place], [id number] Absolute Neut 7.2 X10 3/uL Normal 2.0-7.7 [facility] Comment on above: Performed By: #### L 100.0100, L501.9985, L500.4050 ####[facility] [address], [address] Basophils/100 WBC (Bld) 0.5 % Normal 0-1 [facility] Comment on above: Performed By: #### L 100.0100, L501.9985, L500.4050 ####[facility] [address], [address] Eosinophils/100 WBC (Bld) 1.6 % Normal 0-5 [facility] Comment on above: Performed By: #### L 100.0100, L501.9985, L500.4050 ####[facility] [address], [address] Erythrocyte distribution width (RBC) [Ratio] 13.0 % Normal 11.6-14.6 [facility] Comment on above: Performed By: #### L 100.0100, L501.9985, L500.4050 ####[facility] [address], [address] Hematocrit (Bld) [Volume fraction] 46.4 % Normal 40-54 [facility] Comment on above: Performed By: #### L 100.0100, L501.9985, L500.4050 ####[facility] [address], [address] Hemoglobin (Bld) [Mass/Vol] 15.3 g/dL Normal 13.0-16.5 [facility] Comment on above: Performed By: #### L 100.0100, L501.9985, L500.4050 ####[facility] [address], [address] IG% 0.500 Normal 0.0-0.9 [facility] Comment on above: Result Comment: IG% - Immature Granulocytes (promyelocytes, myelocytes and metamyelocytes) > 1% indicates that a LEFT SHIFT is Present. Performed By: #### L 100.0100, L501.9985, L500.4050 ####[facility] [address] [place], [address] Lymphocytes/100 WBC (Bld) 9.4 % Low 19-41 [facility] Comment on above: Performed By: #### L 100.0100, L501.9985, L500.4050 ####[facility] [address], [address] MCH (RBC) [Entitic mass] 28.8 pg Normal 27.0-32.0 [facility] Comment on above: Performed By: #### L 100.0100, L501.9985, L500.4050 ####[facility] [address], [address] MCHC (RBC) [Mass/Vol] 33.0 g/dL Normal 32-36 [facility] Comment on above: Performed By: #### L 100.0100, L501.9985, L500.4050 ####[facility] [address], [address] MCV (RBC) [Entitic vol] 87.2 fL Normal 80-94 [facility] Comment on above: Performed By: #### L 100.0100, L501.9985, L500.4050 ####[facility] [address], [address] Monocytes/100 WBC (Bld) 9.8 % Normal 0-10 [facility] Comment on above: Performed By: #### L 100.0100, L501.9985, L500.4050 ####[facility] [address], [address] Neutrophils/100 WBC (Bld) 78.2 % High 47-70 [facility] Comment on above: Performed By: #### L 100.0100, L501.9985, L500.4050 ####[facility] [address] [place], [address] Nucleated RBC (Bld) [#/Vol] 0 10*3/uL Normal 0-5 [facility] Comment on above: Performed By: #### L 100.0100, L501.9985, L500.4050 ####[facility] [address], [address] Platelet mean volume (Bld) [Entitic vol] 10.7 fL Normal 6.2-12.0 [facility] Comment on above: Performed By: #### L 100.0100, L501.9985, L500.4050 ####[facility] [address], [address] Platelets (Bld) [#/Vol] 268 10*3/uL Normal 150-450 [facility] Comment on above: Performed By: #### L 100.0100, L501.9985, L500.4050 ####[facility] [address], [address] RBC (Bld) [#/Vol] 5.32 10*6/uL Normal 4.6-6.2 [facility] Comment on above: Performed By: #### L 100.0100, L501.9985, L500.4050 ####[facility] [address], [address] RDW SD 40.5 fl Normal 35.1-43.9 [facility] Comment on above: Performed By: #### L 100.0100, L501.9985, L500.4050 ####[facility] [address], [address] WBC (Bld) [#/Vol] 9.2 10*3/uL Normal 4.4-11.0 [facility] Comment on above: Performed By: #### L 100.0100, L501.9985, L500.4050 ####[facility] [address], [address] Carbon dioxide, total [Moles /volume] in Central venous bloodOrdered By: Sharon Osorio on 11-14-2024 CO2 [Moles/Vol] 20.4 mmol/L Low 21.0-32.0 [facility] Chloride assayOrdered By: Delaney Osorio on 11-14-2024 Chloride [Moles/Vol] 104 mmol/L 98-108 [facility] Comprehensive Metabolic Prof ilon 11-14-2024 Albumin [Mass/Vol] 4.3 g/dL Normal 3.4-4.8 [facility] Comment on above: Performed By: #### L 100.0100, L501.9985, L500.4050 ####[facility] [address], [address] Albumin/Globulin [Mass ratio] 1.5 {ratio} Normal 0.9-2.4 [facility] Comment on above: Performed By: #### L 100.0100, L501.9985, L500.4050 ####[facility] [address], [address] ALK PHOS 85 U/L Normal 40-129 [facility] Comment on above: Performed By: #### L 100.0100, L501.9985, L500.4050 ####[facility] [address], [address] ALT [Catalytic activity/Vol] 32 U/L Normal <=46 [facility] Comment on above: Performed By: #### L 100.0100, L501.9985, L500.4050 ####[facility] [address], [address] AST [Catalytic activity/Vol] 37 U/L Normal <=37 [facility] Comment on above: Performed By: #### L 100.0100, L501.9985, L500.4050 ####[facility] [address], [address] Bilirubin [Mass/Vol] 0.58 mg/dL Normal 0.00-1.30 [facility] Comment on above: Performed By: #### L 100.0100, L501.9985, L500.4050 ####[facility] [address] [place], [address] BUN/CRE 17.0 RATIO Normal 10-20 [facility] Comment on above: Performed By: #### L 100.0100, L501.9985, L500.4050 ####[facility] [address], [address] Calcium [Mass/Vol] 9.4 mg/dL Normal 7.6-11.0 [facility] Comment on above: Performed By: #### L 100.0100, L501.9985, L500.4050 ####[facility] [address] [place], [address] Chloride [Moles/Vol] 104 mmol/L Normal 98-108 [facility] Comment on above: Performed By: #### L 100.0100, L501.9985, L500.4050 ####[facility] [address] [place], [address] CO2 [Moles/Vol] 20.4 mmol/L Low 21.0-32.0 [facility] Comment on above: Performed By: #### L 100.0100, L501.9985, L500.4050 ####[facility] [address] [place], [address] Creatinine [Mass/Vol] 1.07 mg/dL Normal 0.70-1.20 [facility] Comment on above: Performed By: #### L 100.0100, L501.9985, L500.4050 ####[facility] [address] [place], [address] GAP 12 Normal 5-15 [facility] Comment on above: Performed By: #### L 100.0100, L501.9985, L500.4050 ####[facility] [address] [place], [address] GFR/1.73 sq M.predicted among non-blacks MDRD (S/P/Bld) [Vol rate/Area] 72 mL/min/{1.73_m2} Normal >60 [facility] [facility] Comment on above: Result Comment: mL/m in/1.73m2 CKD-EPI Creatinine Equation (2020) Performed By: #### L 100.0100, L501.9985, L500.4050 ####[facility] [address] [place], [address] Globulin (S) [Mass/Vol] 2.9 g/dL Normal 2.2-4.2 [facility] Comment on above: Performed By: #### L 100.0100, L501.9985, L500.4050 ####[facility] [address] [place], [address] Glucose [Mass/Vol] 102 mg/dL High 70-99 [facility] Comment on above: Performed By: #### L 100.0100, L501.9985, L500.4050 ####[facility] [address] [place], [address] Potassium [Moles/Vol] 4.3 mmol/L Normal 3.3-5.1 [facility] Comment on above: Performed By: #### L 100.0100, L501.9985, L500.4050 ####[facility] [address] [place], [address] Sodium [Moles/Vol] 136 mmol/L Normal 133-145 [facility] Comment on above: Performed By: #### L 100.0100, L501.9985, L500.4050 ####[facility] [address] [place], [address] T PROT 7.2 g/dL Normal 5.9-8.4 [facility] Comment on above: Performed By: #### L 100.0100, L501.9985, L500.4050 ####[facility] [address] [place], [address] Urea nitrogen [Mass/Vol] 18 mg/dL Normal 4-19 [facility] Comment on above: Performed By: #### L 100.0100, L501.9985, L500.4050 ####[facility] [address] [place], [address] Eosinophil percentageOrdered By: Sharon Osorio on 11-14-2024 Eosinophils/100 WBC (Bld) 1.6 % 0-5 [facility] Erythrocyte distribution wid th ratioOrdered By: Sharon Osorio on 11-14-2024 Erythrocyte distribution width (RBC) [Ratio] 13.0 % 11.6-14.6 [facility] Erythrocyte distribution wid th standard deviationOrdered By: Sharon Osorio on 11-14-2024 Erythrocyte distribution width (RBC) [Ratio] 40.5 fl 35.1-43.9 [facility] Glomerular filtration rate ( GFR) estimation/1.73 sq m using serum, plasma, or whole bOrdered By: Sharon Osorio on 11-14-2024 GFR/1.73 sq M.predicted among non-blacks MDRD (S/P/Bld) [Vol rate/Area] 72 mL/min/{1.73_m2} >60 [facility] Comment on above: mL/min/1.73m2 CKD-EP I Creatinine Equation (2020) Hematocrit Auto (Bld) [Volum e fraction]Ordered By: Sharon Osorio on 11-14-2024 Hematocrit (Bld) [Volume fraction] 46.4 % 40-54 [facility] Hemoglobin A1con 11-14-2024 HbA1c (Bld) [Mass fraction] 6.0 % High <=5.6 [facility] Comment on above: Result Comment: Norm al < 5.7 % Prediabetic 5.7 - 6.4 % Diabetic >or= 6.5 % Please note range changes. Performed By: #### L 100.0100, L501.9985, L500.4050 ####[facility] [address] [place], [place], [id number] Hemoglobin A1c percentageOrd ered By: Sharon Osorio on 11-14-2024 HbA1c (Bld) [Mass fraction] 6.0 % High <5.7 [facility] Comment on above: Normal < 5.7 % Predi abetic 5.7 - 6.4 % Diabetic >or= 6.5 % Please note range changes. Hemoglobin measurementOrdere d By: Sharon Osorio on 11-14-2024 Hemoglobin (Bld) [Mass/Vol] 15.3 g/dL 13.0-16.5 [facility] Immature granulocytes/100 WB C Auto (Bld)Ordered By: Sharon Osorio on 11-14-2024 Immature granulocytes/100 WBC (Bld) 0.500 % 0.0-0.9 [facility] Comment on above: IG% - Immature Granu locytes (promyelocytes, myelocytes and metamyelocytes) > 1% indicates that a LEFT SHIFT is Present. Internal Medicine Office Vis iton 11-14-2024 Internal Medicine Office Visit [facility] [address] [place], [place] [address] OFFICE VISIT Date of Service: 11/14/24 MR#: [id number] Acct: [id number] Name: ANITA GUZMAN Rep #: [id number] : 1950 Provider: Dr. Sharon street MD Age/Sex: 74/M Location[place] [facility] [place] Status: Signed Intake Vital Signs 05/16/24 14:25 [...] M FU Chief Complaint: FU Chronic Conditions Resin Coater Required: No Is patient in pain?: No [...] capsule 10 mg PO HS #90 caps 08/19/2410/17 Rx dutasteride 0.5 mg capsule 0.5 mg [...] Colon enlargement Atherosclerosis of coronary artery of douglas heart without angina pectoris Essential hypertension Cardiac [...] 11/14/24 @ (more content not included)... Normal [facility] Laboratory - Chemistry and C hemistry - challengeOrdered By: Sharon Osorio on 11-14-2024 AST [Catalytic activity/Vol] 37 U/L <38 [facility] MCV (mean corpuscular volume ) determinationOrdered By: Sharon Osorio on 11-14-2024 MCV (RBC) [Entitic vol] 87.2 fL 80-94 [facility] Mean corpuscular hemoglobin (MCH) determinationOrdered By: Sharon Osorio on 11-14-2024 MCH (RBC) [Entitic mass] 28.8 pg 27.0-32.0 [facility] Mean corpuscular hemoglobin concentration (MCHC) determinationOrdered By: Sharon Osorio on 11-14-2024 MCHC (RBC) [Mass/Vol] 33.0 g/dL 32-36 [facility] Mean platelet volume determi nationOrdered By: Sharon Osorio on 11-14-2024 Platelet mean volume (Bld) [Entitic vol] 10.7 fL 6.2-12.0 [facility] Monocyte percentageOrdered B y: Sharon Osorio on 11-14-2024 Monocytes/100 WBC (Bld) 9.8 % 0-10 [facility] Neutrophil percentageOrdered By: Sharon Osorio on 11-14-2024 Neutrophils/100 WBC (Bld) 78.2 % High 47-70 [facility] Nucleated red blood cell per centageOrdered By: Sharon Osorio on 11-14-2024 Nucleated RBC/100 WBC (Bld) [Ratio] 0 % 0-5 [facility] Platelet countOrdered By: Delaney Osorio on 11-14-2024 Platelets (Bld) [#/Vol] 268 10*3/uL 150-450 [facility] Potassium measurement (mass/ volume)Ordered By: Sharon Osorio on 11-14-2024 Potassium (Unsp spec) [Mass/Vol] 4.3 mmol/L 3.3-5.1 [facility] RBC Auto (Bld) [#/Vol]Ordere d By: Sharon Osorio on 11-14-2024 RBC (Bld) [#/Vol] 5.32 10*6/uL 4.6-6.2 [facility] Serum creatinine measurement (mass/volume)Ordered By: Sharon Osorio on 11-14-2024 Creatinine [Mass/Vol] 1.07 mg/dL 0.70-1.20 [facility] Serum globulin measurementOr dered By: Sharon Osorio 11-14-2024 Globulin (S) [Mass/Vol] 2.9 g/dL 2.2-4.2 [facility] Serum glucose measurement (m ass/volume)Ordered By: Sharon Osorio on 11-14-2024 Glucose [Mass/Vol] 102 mg/dL High 70-99 [facility] Serum or plasma alanine dominguez otransferase (ALT) measurementOrdered By: Sharon Osorio on 11-14-2024 ALT [Catalytic activity/Vol] 32 U/L <47 [facility] Serum or plasma albumin joseph urement (mass/volume)Ordered By: Sharon Osorio 11-14-2024 Albumin [Mass/Vol] 4.3 g/dL 3.4-4.8 [facility] Serum or plasma albumin/glob ulin mass ratioOrdered By: Sharon Osorio 11-14-2024 Albumin/Globulin [Mass ratio] 1.5 {ratio} 0.9-2.4 [facility] Serum or plasma alkaline krystal sphatase measurementOrdered By: Sharon Osorio on 11-14-2024 ALP [Catalytic activity/Vol] 85 U/L 40-129 [facility] Serum or plasma calcium joseph urement (mass/volume)Ordered By: Sharon Osorio on 11-14-2024 Calcium [Mass/Vol] 9.4 mg/dL 7.6-11.0 [facility] Serum or plasma urea nitroge n measurement (mass/volume)Ordered By: Sharon Osorio on 11-14-2024 Urea nitrogen [Mass/Vol] 18 mg/dL 4-19 [facility] Sodium levelOrdered By: Jozef Osorio on 11-14-2024 Sodium [Moles/Vol] 136 mmol/L 133-145 [facility] Total proteinOrdered By: Iain Osorio on 11-14-2024 Protein [Mass/Vol] 7.2 g/dL 5.9-8.4 [facility] White blood cell (WBC) count Ordered By: Sharon Osorio on 11-14-2024 WBC (Bld) [#/Vol] 9.2 10*3/uL 4.4-11.0 [facility] 6 Minute Walk Teston 025 6 Minute Walk Test y [facility] Services/Neurology [address] [place] [address] MR#: [id number] Acct: [id number] Name: ANITA GUZMAN Rep #: [id number] : 1950 74 From: Elgin Trujillo DO Referring Dr: Sharon Hester PELT DROPPER PELT DROPPER-C Status: REG CLI Location: PSN Date: Sex: M C PSN 6 Minute Walk Test 6 Minute Walk Test 6 Minute Walk Test: 6 Minute Walk Test PSN:6-Minute Walk Test Start: 10/08/24 12:46 Freq: Status: Active Protocol: RESP.6MINW Document 10/08/24 12:46 JR (Rec: 10/08/24 12:50 JR [id number]) 6 Minute Walk Test Date Performed 10/08/24 [...] the rest of the testing. Anna Covarrubias BRAND ATTENDANT Initialized on 10/08/24 12:49 - END OF [...] Dictated: 10/10/24 1007 Date Transcribed: 10/10/24 1007 Supervisor Silvering Department: Dr. Elgni Trujillo DO Signed Normal [facility] Pulmonary Visit Reporton Pulmonary Visit Report [facility] [place] [address] [place] [address] OFFICE VISIT Date of Service: 10/02/24 MR#: [id number] Acct: [id number] Name: ANITA GUZMAN Rep #: [id number] : 1950 Provider: LEONIDAS Hester Age/Sex: 74/M Location[place] [facility] [place] Status: Signed Assessment and Plan Assessment and Plan (1) Shortness of breath: Status: Chronic Plan: Of unclear etiology. The patient could be experiencing shortness of breath due to hypoxia on exertion. Sending him for 6-minute walk test to evaluate. If he qualifies, the patient is requesting a "Inogen". Follow-up in the office once test results [...] Additional Comments: This note was generated with [employer] dictation software. It may contain incorrect words, [...] of breath Chief Complaint: congest, DALY, cough Resin Coater Required: No Accompanied by: Self Allergies No [...] tabs isosorbide (more content not included)... Normal [facility] Chest PA and Lateralon 06-05 Chest PA and Lateral [facility] Imaging Services [address] [place] [address] Chest PA and Lateral MR#: [id number] Acct: [id number] Name: ANITA GUZMAN Rep #: [id number] : 1950 M 74 From: Earl borrego MD PCP: Dr. Sharon Osorio MD Status: DEP AMB Study: Chest PA and Lateral Date of Exam: 06/05/24 Exam# [id number] Ordering Dr: Sergio Ramirez PELT DROPPER-C PROCEDURE: CHEST PA AND LATERAL REASON FOR [...] of the left lung base. Reading Location: [facility] CC: LEONIDAS Ramirez; Dr. Sharon Osorio MD Supervisor Silvering Department: Signed Normal [facility] No Panel InformationOrdered By: Sergio Ramirez on 06-05-2024 Influenza Types A,B Rapid (Clinic) Negative [facility] POC SARS CoV-2 Antigen Negative [facility] Urgent Care Visit Reporton 0 06-05-2024 Urgent Care Visit Report [facility] [address], [address] [place] [address] OFFICE VISIT Date of Service: 06/05/24 MR#: [id number] Acct: [id number] Name: ANITA GUZMAN Rep #: [id number] : 1950 Provider: LEONIDAS Ramirez Age/Sex: 74/M Location: [facility] [place] Status: Signed Intake Vital Signs 05/16/24 14:25 [...] Reasons: CONGESTION/DALY Chief Complaint: congest, DALY, cough Resin Coater Required: No Is patient in pain?: No Allergies No Known Allergies Allergy (Verified 06/05/24 08:15) Have you fallen in the past year?: No Nurse's Note: cough, congest, DALY, fatigue x 1 week worsening. hx COPD, nebs at home with minimal relief, denies O2 use. current SpO2 88% on room air, pt with very tight sounding cough. [facility] Medical History (Updated 06/05/24 @ 08:23 by [...] Colon enlargement Atherosclerosis of coronary artery of douglas heart without angina pectoris Essential hypertension Cardiac [...] quit in 2008, marijuana, crack/cocaine, hallucinogens and club/senior piping designer drugs caffeine: Yes Type: coffee Number [...] to have (more content not included)... Normal [facility] CBC W/Diff, Automatedon 04-19 Absolute Lymph 1.22 X10 3/uL Normal 0.83-4.51 [facility] Comment on above: Performed By: #### L 100.0100, L500.4100, L501.9910, L500.4050 ####[facility] [address] [place], [place], [id number] Absolute Neut 7.3 X10 3/uL Normal 2.0-7.7 [facility] Comment on above: Performed By: #### L 100.0100, L500.4100, L501.9910, L500.4050 ####[facility] [address] [place], [address] Basophils/100 WBC (Bld) 0.6 % Normal 0-1 [facility] Comment on above: Performed By: #### L 100.0100, L500.4100, L501.9910, L500.4050 ####[facility] [address] [place], [address] Eosinophils/100 WBC (Bld) 2.1 % Normal 0-5 [facility] Comment on above: Performed By: #### L 100.0100, L500.4100, L501.9910, L500.4050 ####[facility] [address] [place], [address] Erythrocyte distribution width (RBC) [Ratio] 13.0 % Normal 11.6-14.6 [facility] Comment on above: Performed By: #### L 100.0100, L500.4100, L501.9910, L500.4050 ####[facility] [address] [place], [address] Hematocrit (Bld) [Volume fraction] 45.7 % Normal 40-54 [facility] Comment on above: Performed By: #### L 100.0100, L500.4100, L501.9910, L500.4050 ####[facility] [address] [place], [address] Hemoglobin (Bld) [Mass/Vol] 15.4 g/dL Normal 13.0-16.5 [facility] Comment on above: Performed By: #### L 100.0100, L500.4100, L501.9910, L500.4050 ####[facility] [address] [place], [address] IG% 0.700 Normal 0.0-0.9 [facility] Comment on above: Result Comment: IG% - Immature Granulocytes (promyelocytes, myelocytes and metamyelocytes) > 1% indicates that a LEFT SHIFT is Present. Performed By: #### L 100.0100, L500.4100, L501.9910, L500.4050 ####[facility] [address] [place], [address] Lymphocytes/100 WBC (Bld) 12.6 % Low 19-41 [facility] Comment on above: Performed By: #### L 100.0100, L500.4100, L501.9910, L500.4050 ####[facility] [address] [place], [address] MCH (RBC) [Entitic mass] 29.4 pg Normal 27.0-32.0 [facility] Comment on above: Performed By: #### L 100.0100, L500.4100, L501.9910, L500.4050 ####[facility] [address] [place], [address] MCHC (RBC) [Mass/Vol] 33.7 g/dL Normal 32-36 [facility] Comment on above: Performed By: #### L 100.0100, L500.4100, L501.9910, L500.4050 ####[facility] [address] [place], [address] MCV (RBC) [Entitic vol] 87.2 fL Normal 80-94 [facility] Comment on above: Performed By: #### L 100.0100, L500.4100, L501.9910, L500.4050 ####[facility] [address] [place], [address] Monocytes/100 WBC (Bld) 9.5 % Normal 0-10 [facility] Comment on above: Performed By: #### L 100.0100, L500.4100, L501.9910, L500.4050 ####[facility] [address] [place], [address] Neutrophils/100 WBC (Bld) 74.5 % High 47-70 [facility] Comment on above: Performed By: #### L 100.0100, L500.4100, L501.9910, L500.4050 ####[facility] [address] [place], [address] Nucleated RBC (Bld) [#/Vol] 0 10*3/uL Normal 0-5 [facility] Comment on above: Performed By: #### L 100.0100, L500.4100, L501.9910, L500.4050 ####[facility] [address], [address] Platelet mean volume (Bld) [Entitic vol] 10.6 fL Normal 6.2-12.0 [facility] Comment on above: Performed By: #### L 100.0100, L500.4100, L501.9910, L500.4050 ####[facility] [address] [place], [address] Platelets (Bld) [#/Vol] 258 10*3/uL Normal 150-450 [facility] Comment on above: Performed By: #### L 100.0100, L500.4100, L501.9910, L500.4050 ####[facility] [address] [place], [address] RBC (Bld) [#/Vol] 5.24 10*6/uL Normal 4.6-6.2 [facility] Comment on above: Performed By: #### L 100.0100, L500.4100, L501.9910, L500.4050 ####[facility] [address] [place], [address] RDW SD 41.6 fl Normal 35.1-43.9 [facility] Comment on above: Performed By: #### L 100.0100, L500.4100, L501.9910, L500.4050 ####[facility] [address] [place], [address] WBC (Bld) [#/Vol] 9.7 10*3/uL Normal 4.4-11.0 [facility] Comment on above: Performed By: #### L 100.0100, L500.4100, L501.9910, L500.4050 ####[facility] [address] [place], [address] Comprehensive Metabolic Prof mson 05-16-2024 Albumin [Mass/Vol] 4.0 g/dL Normal 3.2-5.0 [facility] Comment on above: Performed By: #### L 100.0100, L500.4100, L501.9910, L500.4050 ####[facility] [address] [place], [address] Albumin/Globulin [Mass ratio] 1.1 {ratio} Normal 0.9-2.4 [facility] Comment on above: Performed By: #### L 100.0100, L500.4100, L501.9910, L500.4050 ####[facility] [address] [place], [address] ALK P 72 U/L Normal 45-117 [facility] Comment on above: Performed By: #### L 100.0100, L500.4100, L501.9910, L500.4050 ####[facility] [address], [address] ALT [Catalytic activity/Vol] 39 U/L Normal 16-61 [facility] Comment on above: Performed By: #### L 100.0100, L500.4100, L501.9910, L500.4050 ####[facility] [address], [address] AST [Catalytic activity/Vol] 30 U/L Normal 15-37 [facility] Comment on above: Performed By: #### L 100.0100, L500.4100, L501.9910, L500.4050 ####[facility] [address], [address] Bilirubin [Mass/Vol] 0.80 mg/dL Normal 0.20-1.00 [facility] Comment on above: Result Comment: For patients on eltrombopag therapy, use of Dimension [place] TBIL is not recommended. Performed By: #### L 100.0100, L500.4100, L501.9910, L500.4050 ####[facility] [address], [address] BUN/CRE 11.2 RATIO Normal 10-20 [facility] Comment on above: Performed By: #### L 100.0100, L500.4100, L501.9910, L500.4050 ####[facility] [address], [address] CA,Total 9.4 mg/dL Normal 8.5-10.1 [facility] Comment on above: Performed By: #### L 100.0100, L500.4100, L501.9910, L500.4050 ####[facility] [address] [place], [address] Chloride [Moles/Vol] 108 mmol/L High 98-107 [facility] Comment on above: Performed By: #### L 100.0100, L500.4100, L501.9910, L500.4050 ####[facility] [address], [address] CO2 [Moles/Vol] 25.0 mmol/L Normal 21.0-32.0 [facility] Comment on above: Performed By: #### L 100.0100, L500.4100, L501.9910, L500.4050 ####[facility] [address], [address] Creatinine [Mass/Vol] 1.07 mg/dL Normal 0.70-1.30 [facility] Comment on above: Result Comment: The validity of the calculated GFR GFRAA in patients over 70 years has not been determined. Clinical correlation is essential. Performed By: #### L 100.0100, L500.4100, L501.9910, L500.4050 ####[facility] [address], [address] EST GFR - AA 87 mL/min Normal >60 [facility] Comment on above: Result Comment: Afri can [place] GFR Calc Performed By: #### L 100.0100, L500.4100, L501.9910, L500.4050 ####[facility] [address], [address] GAP 6 Normal 5-15 [facility] Comment on above: Performed By: #### L 100.0100, L500.4100, L501.9910, L500.4050 ####[facility] [address], [address] GFR/1.73 sq M.predicted among non-blacks MDRD (S/P/Bld) [Vol rate/Area] 72 mL/min/{1.73_m2} Normal >60 [facility] Comment on above: Result Comment: Non- GFR Calc Performed By: #### L 100.0100, L500.4100, L501.9910, L500.4050 ####[facility] [address] [place], [address] Globulin (S) [Mass/Vol] 3.7 g/dL Normal 2.2-4.2 [facility] Comment on above: Performed By: #### L 100.0100, L500.4100, L501.9910, L500.4050 ####[facility] [address], [address] Glucose [Mass/Vol] 120 mg/dL High 74-106 [facility] Comment on above: Result Comment: Fast ing Glucose result from 100 to 125 mg/dL suggests IMPAIRED HOMEOSTASIS per A.D.A. criteria. Performed By: #### L 100.0100, L500.4100, L501.9910, L500.4050 ####[facility] [address], [address] Potassium [Moles/Vol] 4.0 mmol/L Normal 3.5-5.1 [facility] Comment on above: Performed By: #### L 100.0100, L500.4100, L501.9910, L500.4050 ####[facility] [address], [address] Sodium [Moles/Vol] 139 mmol/L Normal 136-145 [facility] Comment on above: Performed By: #### L 100.0100, L500.4100, L501.9910, L500.4050 ####[facility] [address], [address] T PROT 7.7 g/dL Normal 6.4-8.2 [facility] Comment on above: Performed By: #### L 100.0100, L500.4100, L501.9910, L500.4050 ####[facility] [address], [address] Urea nitrogen [Mass/Vol] 12 mg/dL Normal 7-18 [facility] Comment on above: Performed By: #### L 100.0100, L500.4100, L501.9910, L500.4050 ####[facility] [address], [address] Internal Medicine Office Vis neeru 05-16-2024 Internal Medicine Office Visit [facility] [address] [place] [address] [place] [address] OFFICE VISIT Date of Service: 05/16/24 MR#: [id number] Acct: [id number] Name: ANITA GUZMAN Rep #: [id number] : 1950 Provider: Dr. Sharon street MD Age/Sex: 74/M Location: [facility] [place] Status: Signed Intake Vital Signs 11/13/23 10:56 [...] 6 M FU Chief Complaint: 6m fu Resin Coater Required: No Accompanied by: Self Is patient [...] tabs isosorbide mononitrate 30 mg 15 mg (04/18 x 30 mg) PO DAILY #45 0 [...] you fallen in the past year?: No [facility] Medical History (Updated 05/16/24 @ 14:22 by [...] Colon enlargement Atherosclerosis of coronary artery of douglas heart without angina pectoris Essential hypertension Cardiac [...] last u (more content not included)... Normal [facility] Lipid Profileon 05-16-2024 Cholesterol [Mass/Vol] 148 mg/dL Normal 200 [facility] Comment on above: Result Comment: <200 mg/dL Desirable 200-240 mg/dL Borderline >240 mg/dL High Risk Performed By: #### L 100.0100, L500.4100, L501.9910, L500.4050 ####[facility] [address] [place], [address] Cholesterol in HDL [Mass/Vol] 60 mg/dL Normal [facility] Comment on above: Result Comment: The drugs N-Acetylcysteine and Metamizole may falsely depress this assay. Reference Range HDL <40 mg/dL Low HDL Cholesterol HDL >or= 60 mg/dL High HDL Cholesterol Performed By: #### L 100.0100, L500.4100, L501.9910, L500.4050 ####[facility] [address] [place], [address] Cholesterol in LDL [Mass/Vol] 53 mg/dL Normal 0-130 [facility] Comment on above: Performed By: #### L 100.0100, L500.4100, L501.9910, L500.4050 ####[facility] [address] [place], [address] Cholesterol in VLDL [Mass/Vol] 35 mg/dL Normal 5-40 [facility] Comment on above: Performed By: #### L 100.0100, L500.4100, L501.9910, L500.4050 ####[facility] [address], [address] Triglyceride [Mass/Vol] 175 mg/dL Normal [facility] Comment on above: Result Comment: The drugs N-Acetylcysteine and Metamizole may falsely depress this assay. Serum Triglycerides Reference Interval Normal <150 mg/dL Borderline high 150 - 199 mg/dL High 200 - 499 mg/dL Very High > or = 500 mg/dL Performed By: #### L 100.0100, L500.4100, L501.9910, L500.4050 ####[facility] [id number] [place], [address] PSA,Total - Annual Screenon 05-16-2024 PSA,TOT SCREEN 1.83 ng/mL Normal 0.00-4.00 [facility] Comment on above: Result Comment: This test was performed using the TPSA assay method for the [employer] chemistry system. Values obtained with different assay methods cannot be used interchangably. When changing PSA assays in the course of monitoring a patient, additional sequential testing should be carried out to confirm baseline values. Performed By: #### L 100.0100, L500.4100, L501.9910, L500.4050 ####[facility] [id number] [place], [address] Urgent Care Visit Reporton 0 01-07-2024 Urgent Care Visit Report [facility] [address] , [address] [place], [place] [address] OFFICE VISIT Date of Service: 01/07/24 MR#: [id number] Acct: [id number] Name: ANITA GUZMAN Rep #: [id number] : 1950 Provider: LEONIDAS osborne Age/Sex: 73/M Location: [facility] [place] Status: Signed Intake Vital Signs 12/25/23 13:56 [...] CHILLS Chief Complaint: BA, DALY, chills/sweats, fatigue Resin Coater Required: No Is patient in pain?: No Allergies No Known Allergies Allergy (Verified 01/07/24 09:32) Have you fallen in the past year?: No Nurse's Note: BA, DALY, chills/sweats, fatigue x 48 hours. concern for covid [facility] Medical History Asthmatic bronchitis with exacerbation Blood [...] Colon enlargement Atherosclerosis of coronary artery of douglas heart without angina pectoris Essential hypertension Cardiac [...] quit in 2008, marijuana, crack/cocaine, hallucinogens and club/senior piping designer drugs caffeine: Yes Type: coffee Number [...] throat swelling Resp Respiratory: Positive for cough ("normal") Cough: Yes productive, change in phlegm color ("not yellow") and shortness of breath (More than usual) sob: SOB with activity; No chest congestion, hemoptysis, pain on inspiration, pain with cough, stridor or wheezing Cardio Cardiology: No chest pain at rest, chest pain with exertion, shortness of breath, dyspnea on exertion or lightheadedness Gastro GI: Positive for other (dark stool); No abdominal pain, change in bowel habits, constipation (more content not included)... Normal [facility] Absolute lymphocyte countOrd ered By: Sharon Osorio on 04-20-2023 Lymphocytes Auto (Unsp spec) [#/Vol] 1.98 10*3/uL 0.83-4.51 [facility] Basophil percentageOrdered B y: Sharon Osorio on 04-20-2023 Basophils/100 WBC (Bld) 0.5 % 0-1 [facility] Bilirubin [Mass/Vol] 0.70 mg/dL 0.20-1.00 [facility] Comment on above: For patients on eltr ombopag therapy, use of Dimension [place] TBIL is not recommended. Chloride [Moles/Vol] 105 mmol/L 98-107 [facility] Cholesterol [Mass/Vol] 152 mg/dL <200 [facility] Comment on above: <200 mg/dL Desirable 200-240 mg/dL Borderline >240 mg/dL High Risk Eosinophils/100 WBC (Bld) 1.9 % 0-5 [facility] Glucose [Mass/Vol] 132 mg/dL 74-106 [facility] Comment on above: Fasting Glucose resu lt greater than or equal to 126 mg/dL suggests DIABETES MELLITUS per A.D.A. criteria. Neutrophils (Bld) [#/Vol] 7.5 10*3/uL 2.0-7.7 [facility] Neutrophils/100 WBC (Bld) 69.3 % 47-70 [facility] Potassium [Moles/Vol] 3.6 mmol/L 3.5-5.1 [facility] Protein [Mass/Vol] 7.9 g/dL 6.4-8.2 [facility] Sodium [Moles/Vol] 138 mmol/L 136-145 [facility] Triglyceride [Mass/Vol] 122 mg/dL <199 [facility] Comment on above: The drugs N-Acetylcy steine and Metamizole may falsely depress this assay.Serum Triglycerides Reference Interval Normal <150 mg/dL Borderline high 150 - 199 mg/dL High 200 - 499 mg/dL Very High > or = 500 mg/dL WBC (Bld) [#/Vol] 10.8 10*3/uL 4.4-11.0 [facility] Blood erythrocytes count (nu mber/volume)Ordered By: Sharon Osorio on 04-20-2023 RBC (Bld) [#/Vol] 5.39 10*6/uL 4.6-6.2 [facility] Blood hemoglobin measurement (mass/volume)Ordered By: Sharon Osorio on 04-20-2023 Hemoglobin (Bld) [Mass/Vol] 16.2 g/dL 13.0-16.5 [facility] Blood lymphocytes/100 leukoc ytesOrdered By: Sharon Osorio on 04-20-2023 Lymphocytes/100 WBC (Bld) 18.4 % 19-41 [facility] Blood monocytes/100 leukocyt esOrdered By: Sharon Osorio on 04-20-2023 Monocytes/100 WBC (Bld) 9.3 % 0-10 [facility] Blood platelet mean volumeOr dered By: Sharon Osorio on 04-20-2023 Platelet mean volume (Bld) [Entitic vol] 10.3 fL 6.2-12.0 [facility] Determination of erythrocyte mean corpuscular volume (MCV)Ordered By: Sharon Osorio on 04-20-2023 MCV (RBC) [Entitic vol] 88.9 fL 80-94 [facility] Hematocrit Auto (Bld) [Volum e fraction]Ordered By: Sharon Osorio on 04-20-2023 Hematocrit (Bld) [Volume fraction] 47.9 % 40-54 [facility] Laboratory - Chemistry and C hemistry - challengeOrdered By: Sharon Osorio on 04-20-2023 ALP [Catalytic activity/Vol] 75 U/L 45-117 [facility] ALT [Catalytic activity/Vol] 42 U/L 16-61 [facility] CO2 [Moles/Vol] 25.0 mmol/L 21.0-32.0 [facility] Globulin (S) [Mass/Vol] 3.8 g/dL 2.2-4.2 [facility] Urea nitrogen/Creatinine [Mass ratio] 13.6 mg/mg 10-20 [facility] Laboratory - Hematology and Cell countsOrdered By: Sharon Osorio on 04-20-2023 Erythrocyte distribution width (RBC) [Entitic vol] 41.0 fL 35.1-43.9 [facility] Erythrocyte distribution width (RBC) [Ratio] 12.7 % 11.6-14.6 [facility] Immature granulocytes/100 WBC (Bld) 0.600 % 0.0-0.9 [facility] Comment on above: IG% - Immature Granu locytes (promyelocytes, myelocytes and metamyelocytes) > 1% indicates that a LEFT SHIFT is Present. MCH (RBC) [Entitic mass] 30.1 pg 27.0-32.0 [facility] Nucleated RBC/100 WBC (Bld) [Ratio] 0 % 0-5 [facility] MCHC Auto (RBC) [Mass/Vol]Or dered By: Sharon Osorio on 04-20-2023 MCHC (RBC) [Mass/Vol] 33.8 g/dL 32-36 [facility] No Panel InformationOrdered By: Sharon Osorio on 04-20-2023 Estimated GFR (MDRD) Amer 78 mL/min >60 [facility] Comment on above: GFR Calc Estimated GFR (MDRD) Non-Af Amer 64 mL/min >60 [facility] Comment on above: Non- GFR Calc Prostate Specific Antigen Screen 1.61 ng/mL 0.00-4.00 [facility] Comment on above: This test was perfor med using the TPSA assay method for the[employer] chemistry system. Values obtained with differentassay methods cannot be used interchangably.When changing PSA assays in the course of monitoring apatient, additional sequential testing should be carriedout to confirm baseline values. Thyroid Stimulating Hormone (TSH) 3.15 uIU/mL 0.358-3.74 [facility] Platelets bldOrdered By: Iain Osorio on 04-20-2023 Platelets (Bld) [#/Vol] 284 10*3/uL 150-450 [facility] Serum or plasma albumin joseph urement (mass/volume)Ordered By: Sharon Osorio on 04-20-2023 Albumin [Mass/Vol] 4.1 g/dL 3.2-5.0 [facility] Serum or plasma albumin/glob ulin mass ratioOrdered By: Sharon Osorio on 04-20-2023 Albumin/Globulin [Mass ratio] 1.1 {ratio} 0.9-2.4 [facility] Serum or plasma calcium joseph urement (mass/volume)Ordered By: Sharon Osorio on 04-20-2023 Calcium [Mass/Vol] 8.9 mg/dL 8.5-10.1 [facility] Serum or plasma cholesterol in HDL measurement (mass/volume)Ordered By: Sharon Osorio on 04-20-2023 Cholesterol in HDL [Mass/Vol] 53 mg/dL >40 [facility] Comment on above: The drugs N-Acetylcy steine and Metamizole may falsely depress this assay. Reference Range HDL <40 mg/dL Low HDL Cholesterol HDL >or= 60 mg/dL High HDL Cholesterol Serum or plasma cholesterol in VLDL measurement (mass/volume)Ordered By: Sharon Osorio on 04-20-2023 Cholesterol in VLDL [Mass/Vol] 24 mg/dL 5-40 [facility] Serum or plasma creatinine m easurement (mass/volume)Ordered By: Sharon Osorio on 04-20-2023 Creatinine [Mass/Vol] 1.18 mg/dL 0.70-1.30 [facility] Comment on above: The validity of the calculated GFR & GFRAA in patients over 70 years has not been determined. Clinical correlation is essential. Serum or plasma low density lipoprotein (LDL) cholesterol measurement (mass/volume)Ordered By: Sharon Osorio on 04-20-2023 Cholesterol in LDL [Mass/Vol] 75 mg/dL 0-130 [facility] Serum or plasma urea nitroge n measurement (mass/volume)Ordered By: Sharon Osorio on 04-20-2023 Urea nitrogen [Mass/Vol] 16 mg/dL 7-18 [facility] Thin prep Papanicolaou smear with manual screeningOrdered By: Sharon Osorio on 04-20-2023 Thin prep Papanicolaou smear with manual screening 31 U/L 15-37 [facility] Thin prep Papanicolaou smear with manual screening 8 5-15 [facility] Gram stain for investigation of transfusion reactionOrdered By: Sharon Hester on 12-12-2022 Microscopic observation Gram stain Nom (Unsp spec) [facility] Absolute lymphocyte counton 03-12-2022 Lymphocytes Auto (Unsp spec) [#/Vol] 1.05 10*3/uL 0.83-4.51 [facility] Work Phone: Basophil percentageon 2021 Basophils/100 WBC (Bld) 0.5 % 0-1 [facility] Work Phone: [phone] Chloride [Moles/Vol] 112 mmol/L 98-107 [facility] Work Phone: Eosinophils/100 WBC (Bld) 1.8 % 0-5 [facility] Work Phone: [phone] Glucose [Mass/Vol] 115 mg/dL 74-106 [facility] Work Phone: Comment on above: Fasting Glucose resu lt from 100 to 125 mg/dL suggests IMPAIRED HOMEOSTASIS per A.D.A. criteria. Neutrophils (Bld) [#/Vol] 5.8 10*3/uL 2.0-7.7 [facility] Work Phone: Neutrophils/100 WBC (Bld) 73.2 % 47-70 [facility] Work Phone: Potassium [Moles/Vol] 4.2 mmol/L 3.5-5.1 [facility] Work Phone: Sodium [Moles/Vol] 141 mmol/L 136-145 [facility] Work Phone: WBC (Bld) [#/Vol] 7.9 10*3/uL 4.4-11.0 [facility] Work Phone: Blood erythrocytes count (nu mber/volume)on 03-12-2022 RBC (Bld) [#/Vol] 4.68 10*6/uL 4.6-6.2 [facility] Work Phone: Blood hemoglobin measurement (mass/volume)on 03-12-2022 Hemoglobin (Bld) [Mass/Vol] 14.4 g/dL 13.0-16.5 [facility] Work Phone: Blood lymphocytes/100 leukoc yteson 03-12-2022 Lymphocytes/100 WBC (Bld) 13.4 % 19-41 [facility] Work Phone: Blood monocytes/100 leukocyt eson 03-12-2022 Monocytes/100 WBC (Bld) 10.6 % 0-10 [facility] Work Phone: Blood platelet mean volumeon 03-12-2022 Platelet mean volume (Bld) [Entitic vol] 9.9 fL 6.2-12.0 [facility] Work Phone: Determination of erythrocyte mean corpuscular volume (MCV)on 03-12-2022 MCV (RBC) [Entitic vol] 92.1 fL 80-94 [facility] Work Phone: Hematocrit Auto (Bld) [Volum e fraction]on 03-12-2022 Hematocrit (Bld) [Volume fraction] 43.1 % 40-54 [facility] Work Phone: INR in Blood by Coagulation assayon 03-12-2022 INR Coag (Bld) [Relative time] 1.1 {INR} [facility] Work Phone: Laboratory - Chemistry and C hemistry - challengeon 03-12-2022 CO2 [Moles/Vol] 23.0 mmol/L 21.0-32.0 [facility] Work Phone: Urea nitrogen/Creatinine [Mass ratio] 28.2 mg/mg 10-20 [facility] Work Phone: Laboratory - Coagulationon 05-12-2021 aPTT Coag (Bld) [Time] 29.0 s 24.1-36.2 [facility] Work Phone: PT Coag (PPP) [Time] 14.1 s 11.7-14.9 [facility] Work Phone: Laboratory - Hematology and Cell countson 03-12-2022 Erythrocyte distribution width (RBC) [Entitic vol] 46.4 fL 35.1-43.9 [facility] Work Phone: Erythrocyte distribution width (RBC) [Ratio] 13.7 % 11.6-14.6 [facility] Work Phone: Immature granulocytes/100 WBC (Bld) 0.500 % 0.0-0.9 [facility] Work Phone: Comment on above: IG% - Immature Granu locytes (promyelocytes, myelocytes and metamyelocytes) > 1% indicates that a LEFT SHIFT is Present. MCH (RBC) [Entitic mass] 30.8 pg 27.0-32.0 [facility] Work Phone: Nucleated RBC/100 WBC (Bld) [Ratio] 0 % 0-5 [facility] Work Phone: MCHC Auto (RBC) [Mass/Vol]on 03-12-2022 MCHC (RBC) [Mass/Vol] 33.4 g/dL 32-36 [facility] Work Phone: No Panel Informationon 03-12 Estimated Creatinine Clearance Calc 69.18 ml/min [facility] Work Phone: Estimated GFR (MDRD) Amer 103 mL/min >60 [facility] Work Phone: Comment on above: GFR Calc Estimated GFR (MDRD) Non-Af Amer 86 mL/min >60 [facility] Work Phone: Comment on above: Non- GFR Calc Troponin I High Sensitivity 12 pg/mL 3.0-78.0 [facility] Work Phone: Comment on above: Please Note: New Jennifer t Units and Gender Specific Reference Ranges. For more information see Policy Stat Procedure [place] High Sensitivity Troponin (TNIH) and attachments. Platelets bldon 03-12-2022 Platelets (Bld) [#/Vol] 224 10*3/uL 150-450 [facility] Work Phone: Serum or plasma calcium joseph urement (mass/volume)on 03-12-2022 Calcium [Mass/Vol] 9.3 mg/dL 8.5-10.1 [facility] Work Phone: Serum or plasma creatinine m easurement (mass/volume)on 03-12-2022 Creatinine [Mass/Vol] 0.92 mg/dL 0.70-1.30 [facility] Work Phone: Comment on above: The validity of the calculated GFR & GFRAA in patients over 70 years has not been determined. Clinical correlation is essential. Serum or plasma urea nitroge n measurement (mass/volume)on 03-12-2022 Urea nitrogen [Mass/Vol] 26 mg/dL 7-18 [facility] Work Phone: Thin prep Papanicolaou smear with manual screeningon 03-12-2022 Thin prep Papanicolaou smear with manual screening 6 5-15 [facility] Work Phone: Absolute lymphocyte counton 03-01-2022 Lymphocytes Auto (Unsp spec) [#/Vol] 1.15 10*3/uL 0.83-4.51 [facility] Work Phone: Basophil percentageon 2021 Basophils/100 WBC (Bld) 0.5 % 0-1 [facility] Work Phone: Bilirubin [Mass/Vol] 0.70 mg/dL 0.20-1.00 [facility] Work Phone: Comment on above: For patients on eltr ombopag therapy, use of Dimension [place] TBIL is not recommended. Chloride [Moles/Vol] 105 mmol/L 98-107 [facility] Work Phone: Cholesterol [Mass/Vol] 144 mg/dL <200 [facility] Work Phone: Comment on above: <200 mg/dL Desirable 200-240 mg/dL Borderline >240 mg/dL High Risk Eosinophils/100 WBC (Bld) 2.1 % 0-5 [facility] Work Phone: Glucose [Mass/Vol] 106 mg/dL 74-106 [facility] Work Phone: Comment on above: Fasting Glucose resu lt from 100 to 125 mg/dL suggests IMPAIRED HOMEOSTASIS per A.D.A. criteria. Neutrophils (Bld) [#/Vol] 6.4 10*3/uL 2.0-7.7 [facility] Work Phone: Neutrophils/100 WBC (Bld) 72.2 % 47-70 [facility] Work Phone: Potassium [Moles/Vol] 3.9 mmol/L 3.5-5.1 [facility] Work Phone: Protein [Mass/Vol] 8.0 g/dL 6.4-8.2 [facility] Work Phone: Sodium [Moles/Vol] 137 mmol/L 136-145 [facility] Work Phone: Triglyceride [Mass/Vol] 115 mg/dL <199 [facility] Work Phone: Comment on above: The drugs N-Acetylcy steine and Metamizole may falsely depress this assay.Serum Triglycerides Reference Interval Normal <150 mg/dL Borderline high 150 - 199 mg/dL High 200 - 499 mg/dL Very High > or = 500 mg/dL WBC (Bld) [#/Vol] 8.9 10*3/uL 4.4-11.0 [facility] Work Phone: Blood erythrocytes count (nu mber/volume)on 03-01-2022 RBC (Bld) [#/Vol] 5.10 10*6/uL 4.6-6.2 [facility] Work Phone: Blood hemoglobin measurement (mass/volume)on 03-01-2022 Hemoglobin (Bld) [Mass/Vol] 15.0 g/dL 13.0-16.5 [facility] Work Phone: Blood lymphocytes/100 leukoc yteson 03-01-2022 Lymphocytes/100 WBC (Bld) 13.0 % 19-41 [facility] Work Phone: Blood monocytes/100 leukocyt eson 03-01-2022 Monocytes/100 WBC (Bld) 11.5 % 0-10 [facility] Work Phone: Blood platelet mean volumeon 03-01-2022 Platelet mean volume (Bld) [Entitic vol] 10.3 fL 6.2-12.0 [facility] Work Phone: Determination of erythrocyte mean corpuscular volume (MCV)on 03-01-2022 MCV (RBC) [Entitic vol] 89.2 fL 80-94 [facility] Work Phone: Hematocrit Auto (Bld) [Volum e fraction]on 03-01-2022 Hematocrit (Bld) [Volume fraction] 45.5 % 40-54 [facility] Work Phone: Iron measurement (mass/mass) on 03-01-2022 Iron (Unsp spec) [Mass/Mass] 88 ug/dL 65-175 [facility] Work Phone: Laboratory - Chemistry and C hemistry - challengeon 03-01-2022 ALP [Catalytic activity/Vol] 86 U/L 45-117 [facility] Work Phone: ALT [Catalytic activity/Vol] 54 U/L 16-61 [facility] Work Phone: CO2 [Moles/Vol] 23.0 mmol/L 21.0-32.0 [facility] Work Phone: Globulin (S) [Mass/Vol] 4.1 g/dL 2.2-4.2 [facility] Work Phone: Urea nitrogen/Creatinine [Mass ratio] 18.1 mg/mg 10-20 [facility] Work Phone: Laboratory - Hematology and Cell countson 03-01-2022 Erythrocyte distribution width (RBC) [Entitic vol] 44.2 fL 35.1-43.9 [facility] Work Phone: Erythrocyte distribution width (RBC) [Ratio] 13.5 % 11.6-14.6 [facility] Work Phone: Immature granulocytes/100 WBC (Bld) 0.700 % 0.0-0.9 [facility] Work Phone: Comment on above: IG% - Immature Granu locytes (promyelocytes, myelocytes and metamyelocytes) > 1% indicates that a LEFT SHIFT is Present. MCH (RBC) [Entitic mass] 29.4 pg 27.0-32.0 [facility] Work Phone: Nucleated RBC/100 WBC (Bld) [Ratio] 0 % 0-5 [facility] Work Phone: MCHC Auto (RBC) [Mass/Vol]on 03-01-2022 MCHC (RBC) [Mass/Vol] 33.0 g/dL 32-36 [facility] Work Phone: No Panel Informationon 03-01 Estimated GFR (MDRD) Amer 109 mL/min >60 [facility] Work Phone: Comment on above: GFR Calc Estimated GFR (MDRD) Non-Af Amer 90 mL/min >60 [facility] Work Phone: Comment on above: Non- GFR Calc Prostate Specific Antigen Screen 1.19 ng/mL 0.00-4.00 [facility] Work Phone: Comment on above: This test was perfor med using the TPSA assay method for the[facility] chemistry system. Values obtained with differentassay methods cannot be used interchangably.When changing PSA assays in the course of monitoring apatient, additional sequential testing should be carriedout to confirm baseline values. Thyroid Stimulating Hormone (TSH) 3.85 uIU/mL 0.358-3.74 [facility] Work Phone: Total Iron Binding Capacity 306 ug/dL 250-450 [facility] Work Phone: Platelets bldon 03-01-2022 Platelets (Bld) [#/Vol] 293 10*3/uL 150-450 [facility] Work Phone: Serum or plasma albumin joseph urement (mass/volume)on 03-01-2022 Albumin [Mass/Vol] 3.9 g/dL 3.2-5.0 [facility] Work Phone: Serum or plasma albumin/glob ulin mass ratioon 03-01-2022 Albumin/Globulin [Mass ratio] 1.0 {ratio} 0.9-2.4 [facility] Work Phone: Serum or plasma calcium joseph urement (mass/volume)on 03-01-2022 Calcium [Mass/Vol] 9.2 mg/dL 8.5-10.1 [facility] Work Phone: Serum or plasma cholesterol in HDL measurement (mass/volume)on 03-01-2022 Cholesterol in HDL [Mass/Vol] 65 mg/dL >40 [facility] Work Phone: Comment on above: The drugs N-Acetylcy steine and Metamizole may falsely depress this assay. Reference Range HDL <40 mg/dL Low HDL Cholesterol HDL >or= 60 mg/dL High HDL Cholesterol Serum or plasma cholesterol in VLDL measurement (mass/volume)on 03-01-2022 Cholesterol in VLDL [Mass/Vol] 23 mg/dL 5-40 [facility] Work Phone: Serum or plasma creatinine m easurement (mass/volume)on 03-01-2022 Creatinine [Mass/Vol] 0.88 mg/dL 0.70-1.30 [facility] Work Phone: Comment on above: The validity of the calculated GFR & GFRAA in patients over 70 years has not been determined. Clinical correlation is essential. Serum or plasma ferritin samina surement (mass/volume)on 03-01-2022 Ferritin [Mass/Vol] 161 ng/mL 26-388 [facility] Work Phone: Serum or plasma iron saturat ion measurement (mass fraction)on 03-01-2022 Iron saturation [Mass fraction] 28.8 % 15.0-55.0 [facility] Work Phone: Serum or plasma low density lipoprotein (LDL) cholesterol measurement (mass/volume)on 03-01-2022 Cholesterol in LDL [Mass/Vol] 56 mg/dL 0-130 [facility] Work Phone: Serum or plasma urea nitroge n measurement (mass/volume)on 03-01-2022 Urea nitrogen [Mass/Vol] 16 mg/dL 7-18 [facility] Work Phone: Thin prep Papanicolaou smear with manual screeningon 03-01-2022 Thin prep Papanicolaou smear with manual screening 43 U/L 15-37 [facility] Work Phone: Thin prep Papanicolaou smear with manual screening 9 5-15 [facility] Work Phone: No Panel Informationon 12-24 POC SARS CoV-2 Antigen Negative [facility] Work Phone: No Panel Informationon 12-20 POC SARS CoV-2 Antigen Positive [facility] Work Phone: Basophil percentageon 2021 Bilirubin [Mass/Vol] 0.80 mg/dL 0.20-1.00 [facility] Work Phone: Comment on above: For patients on eltr ombopag therapy, use of Dimension [place] TBIL is not recommended. Cholesterol [Mass/Vol] 125 mg/dL <200 [facility] Work Phone: Comment on above: <200 mg/dL Desirable 200-240 mg/dL Borderline >240 mg/dL High Risk Protein [Mass/Vol] 7.9 g/dL 6.4-8.2 [facility] Work Phone: Triglyceride [Mass/Vol] 47 mg/dL [facility] Work Phone: Comment on above: The drugs N-Acetylcy steine and Metamizole may falsely depress this assay.Serum Triglycerides Reference Interval Normal <150 mg/dL Borderline high 150 - 199 mg/dL High 200 - 499 mg/dL Very High > or = 500 mg/dL Direct bilirubinon 2 Bilirubin.direct [Mass/Vol] 0.21 mg/dL 0.00-0.30 [facility] Work Phone: Laboratory - Chemistry and C hemistry - challengeon 07-05-2021 ALP [Catalytic activity/Vol] 87 U/L 45-117 [facility] Work Phone: ALT [Catalytic activity/Vol] 56 U/L 16-61 [facility] Work Phone: Globulin (S) [Mass/Vol] 3.8 g/dL 2.2-4.2 [facility] Work Phone: Serum or plasma albumin joseph urement (mass/volume)on 07-05-2021 Albumin [Mass/Vol] 4.1 g/dL 3.2-5.0 [facility] Work Phone: Serum or plasma cholesterol in HDL measurement (mass/volume)on 07-05-2021 Cholesterol in HDL [Mass/Vol] 58 mg/dL [facility] Work Phone: Comment on above: The drugs N-Acetylcy steine and Metamizole may falsely depress this assay. Reference Range HDL <40 mg/dL Low HDL Cholesterol HDL >or= 60 mg/dL High HDL Cholesterol Serum or plasma cholesterol in VLDL measurement (mass/volume)on 07-05-2021 Cholesterol in VLDL [Mass/Vol] 9 mg/dL 5-40 [facility] Work Phone: Serum or plasma low density lipoprotein (LDL) cholesterol measurement (mass/volume)on 07-05-2021 Cholesterol in LDL [Mass/Vol] 58 mg/dL 0-130 [facility] Work Phone: Thin prep Papanicolaou smear with manual screeningon 07-05-2021 Thin prep Papanicolaou smear with manual screening 43 U/L 15-37 [facility] Work Phone: Basic Panelon 08-04-2018 Creatinine mass conc 0.85 mg/dL Normal 0.67-1.17 [facility] Comment on above: Performed By: #### C BC1 #### [place] [id number] Anion gap molar conc 13 mmol/L Normal 8-16 [facility] Comment on above: Performed By: #### C BC1 #### [facility] [address] [place] [address] CO2 molar conc 22 mmol/L Normal 21-32 [facility] Comment on above: Performed By: #### C BC1 #### [facility] [address] [place] [address] Glucose mass conc 102 mg/dL High 70-99 [facility] Comment on above: Performed By: #### C BC1 #### [facility] [address] [place] [address] Urea nitrogen mass conc 17 mg/dL Normal 7-18 [facility] Comment on above: Performed By: #### C BC1 #### [facility] [address] [place] [address] Calcium mass conc 8.9 mg/dL Normal 8.5-10.1 [facility] Comment on above: Performed By: #### C BC1 #### [facility] [address] [place] [address] Chloride molar conc 103 mmol/L Normal 98-107 [facility] Comment on above: Performed By: #### C BC1 #### [facility] [address] [place] [address] Potassium molar conc 3.9 mmol/L Normal 3.5-5.1 [facility] Comment on above: Performed By: #### C BC1 #### [facility] [address] [place] [address] Sodium molar conc 134 mmol/L Low 136-145 [facility] Comment on above: Performed By: #### C BC1 #### [facility] [address] [place] [address] Hemogramon 08-04-2018 Erythrocyte distribution width Ratio (RBC) 13.7 % Normal 11.6-14.4 [facility] Comment on above: Performed By: #### C BC1 #### [facility] [address] [place] [address] Hematocrit Volume Fraction (Bld) 37.2 % Low 40.1-51.0 [facility] Comment on above: Performed By: #### C BC1 #### [facility] [address] [place] [address] Hemoglobin mass conc (Bld) 12.5 g/dL Low 13.7-17.5 [facility] Comment on above: Performed By: #### C BC1 #### [facility] [address] [place] [address] MCH Entitic mass (RBC) 29.8 pg Normal 25.7-32.2 [facility] Comment on above: Performed By: #### C BC1 #### [facility] [address] [place] [address] MCHC mass conc (RBC) 33.6 % Normal 32.3-36.5 [facility] Comment on above: Performed By: #### C BC1 #### [facility] [address] [place] [address] MCV Entitic volume (RBC) 88.8 fL Normal 83.2-95.6 [facility] Comment on above: Performed By: #### C BC1 #### [facility] [address] [place] [address] Platelet mean volume Entitic volume (Bld) 10.1 fL Normal 8.7-12.0 [facility] Comment on above: Performed By: #### C BC1 #### [facility] [address] [place] [address] Platelets #/vol (Bld) 246 thou/cmm Normal 141-365 [facility] [place], [facility] Comment on above: Performed By: #### C BC1 #### [facility] [address] [place] [address] RBC #/vol (Bld) 4.19 mil/cmm Low 4.63-6.08 [facility] Comment on above: Performed By: #### C BC1 #### [facility] [address] [place] [address] RDW SD 44.9 fl Normal 36.1-45.8 [facility] Comment on above: Performed By: #### C BC1 #### [facility] [address] [place] [id number] WBC #/vol (Bld) 8.24 thou/cmm Normal 4.23-9.07 [facility] Comment on above: Performed By: #### C BC1 #### [facility] [address] [place] [id number] MDRD GFRon 08-04-2018 GFR/1.73 sq M predicted among non-blacks MDRD vol rate/area (S/P/Bld) mL/min/{1.73_m2} Normal >60mL/min/1 .73m2 [facility] Comment on above: Result Comment: If t he patient is , multiply the result by 1.210. Performed By: #### G FR #### [facility] [address] [place] [address] PROGRESSon 08-04-2018 Protein mass conc HNO ID: [id number] Author: Sundeep Weldon Service: Cardiovascular Medicine Author [...] 2018 Patient Name: Anita Guzman Patient Location: [id number]/[facility]-323* Admission Date: 08/01/2018 Length of Stay: [...] angina symptoms for which she presented to [facility] on 06/30/18. Diagnostic catheterization revealed 75% [...] Fracture ankle. Complicated/ MRSA. - Other emphysema ([facility]) FEV1 1.55L, 48% pr. 03/16/09. - RLS (restless legs syndrome) - Special screening for malignant neoplasms, colon - Stroke ([facility]) MINOR BLACK OUT NUMBNESS LEFT SIDE No [...] mouth three times daily for 30 days. cptpjsaijmi-ntnqerpgk-uqa anter (TRELEGY ELLIPTA) 100-62.5-25 mcg dsdv Inhale [...] Pulse: 88 79 85 93 Resp: 20 22 Temp: 37.3 ?C (99.1 ?F) [...] 08/03/18 1723 sodium chloride 0.65 % 2 [place] (AYR, OCEAN) 2 [place] EACH NOSTRIL PRN Seferino Peters tiotropium 2.5 mcg/actuation 2 Puff (SPIRIVA RESPIMAT) 2 Puff INHALATION DAILY Alma (Res) Beto 2 Puff at 08/03/18 0936 fluticasone-vilanterol 100-25 mcg/dose 1 Inhalation (BREO ELLIPTA) 1 Inhalation INHALATION DAILY Alma (Res) Beto 1 Inhalation at 08/03/18 0935 perflutren lipid microspheres 1.1 mg/mL 1.3 mL injection (DEFINITY) 1.3 mL INTRAVENOUS DIRECTED PRN Martin Garcia (Res) MD Pamela citalopram 20 mg tab(s) (CeleXA) 20 mg ORAL DAILY Martin Garcia (Res) MD Pamela 20 mg at 08/03/18 0935 tamsulosin ER 0.4 mg cap(s) (FLOMAX) 0.4 mg ORAL DAILY Martin Garcia (Res) MD Pamela 0.4 mg at 08/03/18 0933 nitroglycerin sublingual [...] CHEM: Recent Labs 08/04/18 0500 08/03/18 0530 08/02/1851808/01/18 1130 CA 8.9 8.4* 8.7 8.3* MG [...] Patient loaded with ticagrelor 180mg in the lab tester? - Troponin downtrending 4.48 -> 4.16. Can [...] effusion. Signed: Sundeep Weldon DO, PGY-1 Pager: [phone] [facility] Date: August 04, 2018 Time: 7:29 AM Recommendations are not finalized until co-signed by Staff physician. Normal [facility] Basic Panelon 08-03-2018 Creatinine mass conc 0.90 mg/dL Normal 0.67-1.17 [facility] Comment on above: Performed By: #### C BC1 #### [facility] [address] [place] [address] Anion gap molar conc 9 mmol/L Normal 8-16 [facility] Comment on above: Performed By: #### C BC1 #### [facility] [address] [place] [address] CO2 molar conc 25 mmol/L Normal 21-32 [facility] Comment on above: Performed By: #### C BC1 #### [facility] [address] [place] [address] Urea nitrogen mass conc 17 mg/dL Normal 7-18 [facility] Comment on above: Performed By: #### C BC1 #### [facility] [address] [place] [address] Calcium mass conc 8.4 mg/dL Low 8.5-10.1 [facility] Comment on above: Performed By: #### C BC1 #### [facility] [address] [place] [address] Glucose mass conc 102 mg/dL High 70-99 [facility] Comment on above: Performed By: #### C BC1 #### [facility] [address] [place] [address] Chloride molar conc 106 mmol/L Normal 98-107 [facility] Comment on above: Performed By: #### C BC1 #### [facility] [address] [place] [address] Potassium molar conc 4.0 mmol/L Normal 3.5-5.1 [facility] Comment on above: Performed By: #### C BC1 #### [facility] [address] [place] [address] Sodium molar conc 136 mmol/L Normal 136-145 [facility] Comment on above: Performed By: #### C BC1 #### [facility] [address] [place] [address] CASE MANAGEMon 08-03-2018 CASE MANAGEM HNO ID: [id number] Author: Dottie (Rn) TU Barnett Service: Care Management Author Type: Registered [...] 03, 2018 TIME: 2:17 PM PAGER/CONTACT #: [phone] Normal [facility] CASE MANAGEM HNO ID: [id number] Author: Bhumika King Service: Care Management Author Type: ? Type: Care Mgt Progress Note Filed: 08/03/2018 10:08 AM Note Text: CARE MANAGEMENT PROGRESS NOTE SERVICE DATE: 08/03/2018 SERVICE TIME: 914 LOS: 2 days IM letter given to patient on [id number]. SIGNATURE: Bhumika King PATIENT NAME: Anita Guzman DATE: August 03, 2018 TIME: 10:08 AM PAGER/CONTACT #: [phone] Normal [facility] Hemogramon 08-03-2018 Erythrocyte distribution width Ratio (RBC) 13.8 % Normal 11.6-14.4 [facility] Comment on above: Performed By: #### C BC1 #### [place] [address] Hematocrit Volume Fraction (Bld) 34.1 % Low 40.1-51.0 [facility] Comment on above: Performed By: #### C BC1 #### [place] [address] Hemoglobin mass conc (Bld) 11.1 g/dL Low 13.7-17.5 [facility] Comment on above: Performed By: #### C BC1 #### [place] [address] MCH Entitic mass (RBC) 29.4 pg Normal 25.7-32.2 [facility] Comment on above: Performed By: #### C BC1 #### [facility] [address] [place] [address] MCHC mass conc (RBC) 32.6 % Normal 32.3-36.5 [facility] Comment on above: Performed By: #### C BC1 #### [place] [address] MCV Entitic volume (RBC) 90.2 fL Normal 83.2-95.6 [facility] Comment on above: Performed By: #### C BC1 #### [facility] [address] [place] [address] Platelet mean volume Entitic volume (Bld) 10.0 fL Normal 8.7-12.0 [facility] Comment on above: Performed By: #### C BC1 #### [facility] [address] [place] [address] Platelets #/vol (Bld) 202 thou/cmm Normal 141-365 [facility] [place], [facility] Comment on above: Performed By: #### C BC1 #### [facility] [address] [place] [address] RBC #/vol (Bld) 3.78 mil/cmm Low 4.63-6.08 [facility] Comment on above: Performed By: #### C BC1 #### [facility] [address] [place] [address] RDW SD 44.9 fl Normal 36.1-45.8 [facility] Comment on above: Performed By: #### C BC1 #### [facility] [address] [place] [address] WBC #/vol (Bld) 11.97 thou/cmm High 4.23-9.07 [facility] Comment on above: Performed By: #### C BC1 #### [facility] [address] [place] [address] PROGRESSon 08-03-2018 Protein mass conc HNO ID: [id number] Author: Martin Garcia (Res) MD Pamela Service: Cardiovascular Medicine Author Type: Resident Type: Progress Notes Filed: 08/21/2018 8:08 AM Note Text: INTERNAL MEDICINE PROGRESS NOTE ADMITTING PHYSICIAN: Jia Victoria Subjective Brief HPI: This is a 68 year old male with h/o COPD, prior alcohol and polysubstance abuse was admitted yesterday regarding an abnormal stress test done as OP.?He initially presented to [facility] on 06/30/2018 with complaints of typical [...] 115/87 Pulse: 84 92 104 90 Resp: 20 Temp: TempSrc: SpO2: 96% 93% 97% [...] Patient loaded with ticagrelor 180mg in the lab tester - troponins up-trending, latest at 4.26 - [...] -- 08/01/18 1130 vte pharmacologic prophylaxis contraindicated (wy,[place]) 08/01/18 1130 pneumatic compression stockings ([place]) VTE Prophylaxis: VTE prophylaxis appropriate SIGNATURE: Martin Garcia Cha, MD PATIENT NAME: Anita Guzman DATE: August 03, 2018 TIME:11:32 AM PAGER/CONTACT #: Pager: [phone] Normal [facility] ALLIED HEALTHon 08-02-2018 ALLIED HEALTH HNO ID: [id number] Author: Leo (Rn) TU Isaac Service: ? Author Type: Registered Nurse Type: Allied Health Filed: 08/02/2018 2:33 PM Note Text: CARDIAC REHABILITATION PATIENT EDUCATION PROGRESS NOTE Name: Anita Guzman Date of Service: 08/02/2018 Time of Service: 1400 ASSESSMENT: Risk Factors Identified: Age Gender Hyperlipidemia Hypertension Reformed Smoker: Year Quit: 2001. RECOMMENDATIONS: Patient interested in Phase II Outpatient Cardiac Rehab: Yes. Facility Preferred: [place] DIAGNOSIS: Percutaneous Cardiac Intervention: JAKOB PCI Teaching [...] Educational Binder Signature: Leo Isaac RN Pager: [phone] Date: August 02, 2018 Time: 2:25 PM [facility] Basic Panelon 08-02-2018 Creatinine mass conc 0.99 mg/dL Normal 0.67-1.17 [facility] Comment on above: Performed By: #### P 8 #### [place] [address] Glucose mass conc 125 mg/dL High 70-99 [facility] Comment on above: Performed By: #### P 8 #### [place] [address] Anion gap molar conc 9 mmol/L Normal 8-16 [facility] Comment on above: Performed By: #### P 8 #### [facility] [address] [place], [place] [address] Calcium mass conc 8.7 mg/dL Normal 8.5-10.1 [facility] Comment on above: Performed By: #### P 8 #### [facility] [address] [place] [address] CO2 molar conc 25 mmol/L Normal 21-32 [facility] Comment on above: Performed By: #### P 8 #### [facility] [address] [place] [address] Urea nitrogen mass conc 15 mg/dL Normal 7-18 [facility] Comment on above: Performed By: #### P 8 #### [facility] [address] [place] [address] Chloride molar conc 105 mmol/L Normal 98-107 [facility] Comment on above: Performed By: #### P 8 #### [facility] [address] [place] [address] Potassium molar conc 4.1 mmol/L Normal 3.5-5.1 [facility] Comment on above: Performed By: #### P 8 #### [facility] [address] [place] [address] Sodium molar conc 135 mmol/L Low 136-145 [facility] Comment on above: Performed By: #### P 8 #### [facility] [address] [place] [address] CASE MGT INIT BORAESon 2018 CASE MGT INIT BENJIE HNO ID: [id number] Author: Mariama (Rn) TU Alves Service: ? 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 Primary Contact: Extended Emergency Contact Information Primary [...] 0 I feel financially burdened by my wts-fu-memyud expenses for my prescription medication: Disagree completely [...] 02, 2018 TIME: 11:55 AM PAGER/CONTACT #: [phone] Normal [facility] Hemogramon 08-02-2018 Erythrocyte distribution width Ratio (RBC) 13.9 % Normal 11.6-14.4 [facility] Comment on above: Performed By: #### C BC1 #### [facility] [address] [place] [address] Hematocrit Volume Fraction (Bld) 37.9 % Low 40.1-51.0 [facility] Comment on above: Performed By: #### C BC1 #### [facility] [address] [place] [address] Hemoglobin mass conc (Bld) 12.6 g/dL Low 13.7-17.5 [facility] Comment on above: Performed By: #### C BC1 #### [place] [address] MCH Entitic mass (RBC) 29.8 pg Normal 25.7-32.2 [facility] Comment on above: Performed By: #### C BC1 #### [facility] [address] [place] [address] MCHC mass conc (RBC) 33.2 % Normal 32.3-36.5 [facility] Comment on above: Performed By: #### C BC1 #### [place] [address] MCV Entitic volume (RBC) 89.6 fL Normal 83.2-95.6 [facility] Comment on above: Performed By: #### C BC1 #### [facility] [address] [place] [address] Platelet mean volume Entitic volume (Bld) 9.9 fL Normal 8.7-12.0 [facility] Comment on above: Performed By: #### C BC1 #### [facility] [address] [place] [address] Platelets #/vol (Bld) 266 thou/cmm Normal 141-365 [facility] [place] Comment on above: Performed By: #### C BC1 #### [place] [address] RBC #/vol (Bld) 4.23 mil/cmm Low 4.63-6.08 [facility] Comment on above: Performed By: #### C BC1 #### [facility] [address] [place] [address] RDW SD 45.3 fl Normal 36.1-45.8 [facility] Comment on above: Performed By: #### C BC1 #### [facility] [address] [place] [address] WBC #/vol (Bld) 14.62 thou/cmm High 4.23-9.07 [facility] Comment on above: Performed By: #### C BC1 #### [place] [address] Lipid Profileon 08-02-2018 Cholesterol in HDL mass conc 64 mg/dL Normal >40 [facility] Comment on above: Performed By: #### C BC1 #### [place] [address] Cholesterol in LDL mass conc 59 mg/dL Normal [facility] Comment on above: Result Comment: No C AD and with fewer than 2 CAD risk factors <160 mg/dL No CAD but with 2 or more CAD risk factors <130 mg/dL Definite CAD or other atherosclerotic disease <100 mg/dL Performed By: #### C BC1 #### [place] [address] Cholesterol in LDL/Cholesterol in HDL mass ratio 0.9 Low 1.1-4.8 [facility] Comment on above: Result Comment: LDL, VLDL,LDL/HDL, Invalid if Triglyceride >400 Performed By: #### C BC1 #### [facility] [address] [place] [address] Cholesterol.total/Chol esterol in HDL mass ratio 2.0 {ratio} Low 2.1-7.3 [facility] Comment on above: Performed By: #### C BC1 #### [place] [address] Cholesterol in VLDL mass conc 8 mg/dL Normal <50 Desired [facility] Comment on above: Performed By: #### C BC1 #### [facility] [address] [place] [address] Triglyceride mass conc 39 mg/dL Normal 0-149 [facility] Comment on above: Result Comment: < 20 0 Desirable Result invalid if not a fasting specimen. Performed By: #### C BC1 #### [facility] [address] [place] [address] Cholesterol mass conc 131 mg/dL Normal 0-199 [facility] Comment on above: Result Comment: <200 Desirable 200-240 Borderline >240 High Performed By: #### C BC1 #### [facility] [address] [place] [address] NUTRITIONon 08-02-2018 NUTRITION HNO ID: [id number] Author: Louisa Baez Service: Nutrition Therapy Author [...] 2018 TIME: 11:38 AM PAGER: [phone] Normal [facility] PLAN OF CAREon 08-02-2018 PLAN OF CARE HNO ID: [id number] Author: Luba Mendoza (Pharmacist) Service: ? Author Type: Pharmacist Type: Plan of Care Filed: 08/02/2018 12:37 PM Note Text: MEDICATION RECONCILIATION Patient Name:.Anita Guzman : 1950 Reconciliation: Yes All COMMUNITY WORKER medications addressed by LIP Additional comments: N/A Allergies: ALLERGIES No Known Allergies Preferred Pharmacy: [facility] ([phone]) Current COMMUNITY WORKER Medications: Prior to Admission medications as of [...] 30 days. 07/31/2018 at Unknown time Yes goirildwzjw-jugmygiyu-vjb anter (TRELEGY ELLIPTA) 100-62.5-25 mcg dsdv Inhale [...] PHARMACIST August 02, 2018 12:36 PM Normal [facility] PLAN OF CARE HNO ID: [id number] Author: Luba Mendoza (Pharmacist) Service: ? Author Type: Pharmacist Type: Plan of Care Filed: 08/02/2018 12:36 PM Note Text: MEDICATION HISTORY Patient Name:Rob Guzman : 1950 Source of history:Spoke with patient; appears reliable. Also reviewed fill history avaliable on EPIC Medication Nonadherence Identified: No barriers noted. The above information represents the best possible medication history: Yes Additional comments: Verified all medications with patient. Patient fills medications at [facility] in [place], [place] Added: Aspirin 81 mg daily - verified with patient (note that aspirin 325 mg was just a one time dose; will remove from list) Allergies: ALLERGIES No Known Allergies Preferred Pharmacy: [facility] in [place], [place] ([phone]) Current COMMUNITY WORKER Medications: Prior to Admission medications as of [...] 30 days. 07/31/2018 at Unknown time Yes jbnizmbglfo-sakfdqqrc-zhr anter (TRELEGY ELLIPTA) 100-62.5-25 mcg dsdv Inhale 1 Puff as instructed once daily as needed. 08/01/2018 at Unknown time Yes pramipexole (MIRAPEX) 0.25 mg tablet Take 1 tablet by mouth daily at bedtime. 07/31/2018 at Unknown time Yes tSTARTED ON THIS ADMISSION Tadalafil (CIALIS) 10 mg tablet Take 1 tablet by mouth as needed (30 minutes prior intercourse.). Francisca Abraham (Mastercam Programmer) August 02, 2018 10:09 AM Normal [facility] PROGRESSon 08-02-2018 Protein mass conc HNO ID: [id number] Author: Martin Garcia (Res) MD Pamela Service: Cardiovascular Medicine Author Type: Resident Type: Progress Notes Filed: 08/02/2018 10:19 AM Note Text: ----- Attestation signed by Seferino Peters at 08/03/2018 2:42 PM Patient personally seen and examined. Case discussed with resident and team. I agree with documentation. Seferino Peters MD, FACP, FACC, [facility] Staff Cardiovascular Medicine [facility] Regional Section of Interventional Cardiology at [facility] [address], [address] [place], [place] [address] P: [phone] F: [phone] [email or web address] ----- INTERNAL MEDICINE PROGRESS NOTE SERVICE DATE: 08/02/2018 SERVICE TIME: 19:58 AM ADMITTING PHYSICIAN: Jia Victoria Subjective Brief HPI: This is a 68 year old male with h/o COPD, prior alcohol and polysubstance abuse was admitted yesterday regarding an abnormal stress test done as OP.?He initially presented to [facility] on 06/30/2018 with complaints of typical [...] ? 08/01/18 1010 ? 172.7 cm (5' 8") 70.5 kg (155 lb 6.8 oz) 08/01/18 [...] Patient loaded with ticagrelor 180mg in the lab tester - troponins up-trending, latest at 4.26 - [...] -- 08/01/18 1130 vte pharmacologic prophylaxis contraindicated ([place]) 08/01/18 1130 pneumatic compression stockings ([place], [place]) VTE Prophylaxis: VTE prophylaxis appropriate SIGNATURE: Martin Garcia Cha, MD PATIENT NAME: Anita Guzman DATE: August 02, 2018 TIME: 9:59 AM PAGER/CONTACT #: Pager: [phone] Normal [facility] Troponin Ion 08-02-2018 Troponin I.cardiac mass conc 4.160 ng/mL Critically high 0.015-0.045 [facility] Comment on above: Performed By: #### C BC1 #### [place] [address] Troponin I.cardiac mass conc 4.480 ng/mL Critically high 0.015-0.045 [facility] Comment on above: Performed By: #### C BC1 #### [place] [address] Troponin I.cardiac mass conc 4.260 ng/mL Critically high 0.015-0.045 [facility] Comment on above: Performed By: #### T ROP #### [place] [address] Troponin I.cardiac mass conc 2.910 ng/mL Critically high 0.015-0.045 [facility] Comment on above: Performed By: #### T ROP #### [place] [address] ACT Arterial Panel (i-STAT)o n 08-01-2018 Kaolin ACT ( i-STAT) 164 sec High 74-137 [facility] Comment on above: Performed By: #### A CTIA #### [place] [address] BRIEF OP NOTon 08-01-2018 BRIEF OP NOT HNO ID: [id number] Author: Seferino Peters Service: Interventional Cardiology Author Type: Physician Type: Brief Op Note Filed: 08/01/2018 5:28 PM Note Text: Brief Note Anita Guzman [id number] 1950 08/01/2018 Michael Arroyo MD Note: Coronary [...] ostium was engaged with a Dean Right 6-Cook Islander guiding catheter that provided fair support. The lesion was crossed successfully without difficulty using a Vitaliy Blue wire, and direct stented with a 5.0 mm x 32 mm everolimus-eluting [place] chromium stent. The stent was post-dilated to [...] radial artery. Seferino Peters MD, FACP, FACC, [facility] Staff Cardiovascular Medicine [facility] Regional Section of Interventional Cardiology at [facility] [address], [address] [place], [place] [address] P: [phone] F: [phone] [email or web address] Normal [facility] BRIEF OP NOT HNO ID: [id number] Author: Jia Victoria Service: Cardiovascular Medicine Author Type: Physician Type: Brief Op Note Filed: 08/01/2018 8:28 AM Note Text: Cath-Indication: Abn stress test Findings LVEF 65% L Main, LAD, LCx luminals RCA large vessel mid 75 mid 70 Proceed with RCA stenting Dr Peters to perform Jia Victoria MD Pager [phone] Normal [facility] Basic Panelon 08-01-2018 Creatinine mass conc 0.85 mg/dL Normal 0.67-1.17 [facility] Comment on above: Performed By: #### P 8 #### [facility] [address] [place] [address] Urea nitrogen mass conc 17 mg/dL Normal 7-18 [facility] Comment on above: Performed By: #### P 8 #### [facility] [address] [place] [address] Anion gap molar conc 11 mmol/L Normal 8-16 [facility] Comment on above: Performed By: #### P 8 #### [facility] [address] [place], [place] [address] Calcium mass conc 8.3 mg/dL Low 8.5-10.1 [facility] Comment on above: Performed By: #### P 8 #### [facility] [address] [place], [place] [address] CO2 molar conc 25 mmol/L Normal 21-32 [facility] Comment on above: Performed By: #### P 8 #### [facility] [address] [place], [place] [address] Glucose mass conc 102 mg/dL High 70-99 [facility] Comment on above: Performed By: #### P 8 #### [facility] [address] [place] [address] Chloride molar conc 108 mmol/L High 98-107 [facility] Comment on above: Performed By: #### P 8 #### [facility] [address] [place] [address] Potassium molar conc 4.1 mmol/L Normal 3.5-5.1 [facility] Comment on above: Performed By: #### P 8 #### [facility] [address] [place], [place] [address] Sodium molar conc 140 mmol/L Normal 136-145 [facility] Comment on above: Performed By: #### P 8 #### [facility] [address] [place], [place] [address] HISTORY PHYSICALon 9 HISTORY PHYSICAL HNO ID: [id number] Author: Alma Pérez Service: Cardiovascular Medicine Author Type: Resident Type: HANDP Filed: 08/01/2018 11:17 AM Note Text: ----- Attestation signed by Sefreino Peters at 08/01/2018 2:20 PM Patient personally seen and examined. Case discussed with resident and team. I agree with documentation. Seferino Peters MD, FACP, FACC, [facility] Staff Cardiovascular Medicine [facility] Regional Section of Interventional Cardiology at [facility] Medicine of [facility] [address], [address] [place], [place] [address] P: [phone] F: [phone] ----- HISTORY AND PHYSICAL EXAMINATION SERVICE DATE: 08/01/2018 SERVICE TIME: 10:30AM PRIMARY CARE PHYSICIAN: Michael Arroyo MD Subjective CHIEF COMPLAINT: Abnormal stress test HPI: This is a 68 year old male with h/o COPD, prior alcohol and polysubstance abuse was admitted yesterday regarding an abnormal stress test done as OP. He initially presented to [facility] on 06/30/2018 with complaints of typical [...] stenosis of the RCA. He subsequently underwent [facility] this am for intervention. He underwent [...] screening for malignant neoplasms, colon - Stroke ([facility]) MINOR BLACK OUT NUMBNESS LEFT SIDE PAST SURGICAL HISTORY Procedure Laterality Date - COLONOSCOP W/ OR W/O [facility] SPEC 10/31/05 - COLONOSCOP W/ OR W/O [facility] SPEC 11/12/15 Colonoscopy - SECONDARY RECONSTRUCTION,ANKLE JOINT [...] capsule Rfl: 2 07/31/2018 at Unknown time tgeoeusenwg-nxzwcmbec-yop anter (TRELEGY ELLIPTA) 100-62.5-25 mcg dsdv Inhale [...] 62 Temp 97.5 Resp 13 Ht 5' 9" (1.75m) Wt 151 lb 3.2 oz (68.6kg) SpO2 97% BMI 22.32 kg/(m2). O2 Therapy: Room Air DATA: Diagnostic tests reviewed for today's visit: All labs pending Assessment/Plan 1. Acute coronary syndrome with symptoms of Unstable angina -Patient presented for coronary intervention after he had an abnormal stress test in LCx territory -EKG showing NSR with no ST-T wave changes -LHC done today and underwent PCI of RCA with JAKOB stent. - Patient loaded with ticagrelor 180mg in the lab tester -Obtain serial troponins -Obtain HbA1c and lipid [...] TIME: 10:09 AM PAGER/CONTACT #: [phone] Normal [facility] Hemogramon 08-01-2018 Erythrocyte distribution width Ratio (RBC) 13.7 % Normal 11.6-14.4 [facility] Comment on above: Performed By: #### C BC1 #### [facility] [address] [place] [address] Hematocrit Volume Fraction (Bld) 38.2 % Low 40.1-51.0 [facility] Comment on above: Performed By: #### C BC1 #### [facility] [address] [place] [address] Hemoglobin mass conc (Bld) 12.3 g/dL Low 13.7-17.5 [facility] Comment on above: Performed By: #### C BC1 #### [place] [address] MCH Entitic mass (RBC) 29.1 pg Normal 25.7-32.2 [facility] Comment on above: Performed By: #### C BC1 #### [facility] [address] [place] [address] MCHC mass conc (RBC) 32.2 % Low 32.3-36.5 [facility] Comment on above: Performed By: #### C BC1 #### [place] [address] MCV Entitic volume (RBC) 90.3 fL Normal 83.2-95.6 [facility] Comment on above: Performed By: #### C BC1 #### [facility] [address] [place] [address] Platelet mean volume Entitic volume (Bld) 10.4 fL Normal 8.7-12.0 [facility] Comment on above: Performed By: #### C BC1 #### [facility] [address] [place] [address] Platelets #/vol (Bld) 223 thou/cmm Normal 141-365 [facility] [place] Comment on above: Performed By: #### C BC1 #### [facility] [address] [place], [place] [address] RBC #/vol (Bld) 4.23 mil/cmm Low 4.63-6.08 [facility] Comment on above: Performed By: #### C BC1 #### [facility] [address] [place] [address] RDW SD 45.4 fl Normal 36.1-45.8 [facility] Comment on above: Performed By: #### C BC1 #### [facility] [address] [place] [id number] WBC #/vol (Bld) 9.17 thou/cmm High 4.23-9.07 [facility] Comment on above: Performed By: #### C BC1 #### [facility] [address] [place] [id number] Magnesium Bloodon 08-01-2018 Magnesium mass conc 2.0 mg/dL Normal 1.6-2.6 [facility] Comment on above: Performed By: #### M AG #### [facility] [address] [place] [address] PROGRESSon 08-01-2018 Protein mass conc HNO ID: [id number] Author: Ammy Hough Service: Cardiovascular Medicine Author Type: Nurse Practitioner Type: Progress Notes Filed: 08/01/2018 10:58 PM Note Text: CARDIOTHORACICSURGERY PROGRESS NOTE SERVICE DATE: 08/01/2018 SERVICE TIME: 10:10am Called to see patient for c/o chest pain. Pt is a 68yo male with CAD with stable angina and abnormal stress test who presented today for [facility]. Underwent placement of JAKOB to RCA. Procedure was complicated by RCA perforation and subsequent pericardial effusion. Emergent pericardiocentesis was performed with 450ml of blood removed. Pt is currently in the CVICU and c/o pain at insertion site of pericardial drain as well as pain with deep breaths. BP 185/92 Pulse 72 Temp 36.4 ?C (97.5 ?F) Resp 16 Ht 172.7 cm (5' 8") Wt 70.5 kg (155 lb 6.8 oz) [...] also started colchicine for pericardial pain. Updated [facility] and the CVICU residents. SIGNATURE: Ammy Hough APRN.BUSINESS EDUCATION TEACHER PATIENT NAME: Anita Guzman DATE: August 01, 2018 TIME: 10:51 AM PAGER/CONTACT #: [phone] ETX#[id number] Normal [facility] Troponin Ion 08-01-2018 Troponin I.cardiac mass conc 0.675 ng/mL High 0.015-0.045 [facility] Comment on above: Performed By: #### T ROP #### [place] [address] HOSPon 07-30-2018 HOSP Patient:Anita Guzman MRN: Height:5' 9"(1.753 m) Weight:151 lb 3.2 oz (68.584 kg) Outpatient Medications as of 08/01/18: aspirin 325 mg tablet albuterol HFA (VENTOLIN HFA) 90 mcg/actuation inhaler Tadalafil (CIALIS) 10 mg tablet tiZANidine (ZANAFLEX) 4 mg tablet pravastatin (PRAVACHOL) 40 mg tablet alfuzosin SR (UROXATRAL) 10 mg 24 hr tablet citalopram (CELEXA) 20 mg tablet gabapentin (NEURONTIN) 300 mg capsule dbomrqgfvfi-zkzioaxfe-auq anter (TRELEGY ELLIPTA) 100-62.5-25 mcg dsdv pramipexole [...] 38.4 % 07/30/2018 51.0 39.0 Progress Notes ([facility]): Eliana Bowen 07/30/2018 1:54 PM Signed [...] 03/09/18 1 inhaler w/5 refills. Yancy Gooden APRN.CNP 07/30/2018 2:49 PM Signed The following approved medication requests have been transmitted electronically. Signed Prescriptions Disp Refills albuterol HFA (VENTOLIN HFA) 90 mcg/actuation inhaler 1 Inhaler 5 Sig: Inhale 2 Puffs as instructed every 4 hours as needed. LÓPEZ: No Authorizing Provider: REBECCA GOODEN (BUSINESS EDUCATION TEACHER) Rebecca Gooden APRN.CNP Progress Notes (SD PROVIDER ADULT): Jia Victoria MD 07/30/2018 6:[address] Royal Garcia in [place] asking me to do cath on this pt at [facility] for abn stress test -please see if pt can do either This MonAug 01 or next Aug 07. Needs CBC but not BMP Thx Sourav Day Gómez RN 07/30/2018 8:57 AM Signed [facility] requesting pt return call to discuss scheduling heart cath.Office phone number provided. TU Grey RN 07/30/2018 9:49 AM Signed Pt returns call. Patient scheduled for left heart cath, rt radial, with Dr Victoria on Mon08/01/18. Instructions reviewed. Questions answered. Patient verbalized understanding. Instructions were as follows: -Arrive to [facility] HANDV Entrance 08/01/18 at time assigned by [facility] clinical laboratory director staff in phone call 07/31/18 PM.. -Nothing by mouth after midnight evening prior. -With a sip of water on 08/01/18 morning take: Aspirin 325mg. -Labs to be done no later than 07/31/18. CBC order entered. - You must have someone drive you home from your procedure. -clinical laboratory director policy is pt not be alone first evening Office phone number provided for questions or concerns. [facility] lab tester notified. Day Gómez RN Ebony Whitley 07/30/2018 10:28 AM Signed auth pending with Maryana, tracking #[id number] Ebony Whitley 07/31/2018 8:44 AM Signed auth approved and in chart. We have started a new process to provide estimates to our patients for their upcoming appointment at [facility]. The purpose is to make you aware of your financial obligation after your insurance company pays. Your insurance shows your estimated patient responsibility for this service is $0.00. We are not collecting your estimate at this time but wanted you to be aware of potential out of pocket expenses based on the estimate we ran for you. Ebony Whitley Normal [facility] Vital Signs Date Time Vital Sign Value Performing Clinician Uvaldo velasquez 11-26-2024 09:010400 Body mass index (BMI) [Ratio] 25.2 kg/m2 Dr. Sharon Osorio MD Work Phone: [place] [facility] 11-26-2024 09:01-0400 Body temperature 97.4 [degF] Dr. Sharon Osorio MD Work Phone: [place] [facility] 11-26-2024 09:01-0400 Body weight 75.[address] Sharon Osorio MD Work Phone: [facility] 11-26-2024 09:01-0400 Diastolic blood pressure 65 mm[Hg] Dr. Sharon Osorio MD Work Phone: [facility] 11-26-2024 09:01-0400 Heart rate 77 /min Dr. Sharon Osorio MD Work Phone: [facility] 11-26-2024 09:01-0400 Respiratory rate 18 /min Dr. Sharon Osorio MD Work Phone: [facility] 11-26-2024 09:01-0400 SaO2% (BldA) [Mass fraction] 92 % Dr. Sharon Osorio MD Work Phone: [facility] 11-26-2024 09:01-0400 Systolic blood pressure 144 mm[Hg] Dr. Sharon Osorio MD Work Phone: [facility] 11-14-2024 14:28-0400 Body height 172.[address] Sharon Osorio MD Work Phone: [facility] 11-14-2024 14:28-0400 Body mass index (BMI) [Ratio] 25 kg/m2 Dr. Sharon Osorio MD Work Phone: [facility] 11-14-2024 14:28-0400 Body temperature 97.2 [degF] Dr. Sharon Osorio MD Work Phone: [facility] 11-14-2024 14:28-0400 Body weight 74.[address] Sharon Osorio MD Work Phone: [facility] 11-14-2024 14:28-0400 Diastolic blood pressure 70 mm[Hg] Dr. Sharon Osorio MD Work Phone: [facility] 11-14-2024 14:28-0400 Heart rate 68 /min Dr. Sharon Osorio MD Work Phone: [facility] 11-14-2024 14:28-0400 Respiratory rate 16 /min Dr. Sharon Osorio MD Work Phone: [facility] 11-14-2024 14:28-0400 SaO2% (BldA) [Mass fraction] 99 % Dr. Sharon Osorio MD Work Phone: [facility] 11-14-2024 14:28-0400 Systolic blood pressure 110 mm[Hg] Dr. Sharon Osorio MD Work Phone: [facility] 10-08-2024 12:46-0400 Body height 172.[address] Sharon Osorio MD Work Phone: [facility] 10-08-2024 12:46-0400 Body weight 73.[address] Sharon Osorio MD Work Phone: [facility] 10-08-2024 12:46-0400 Heart rate 90 /min Dr. Sharon Osorio MD Work Phone: [facility] 10-08-2024 12:46-0400 Inhaled oxygen flow rate 2 L/min Dr. Sharon Osorio MD Work Phone: [facility] 10-08-2024 12:46-0400 SaO2% (BldA) [Mass fraction] 87 % Dr. Sharon Osorio MD Work Phone: [facility] 10-02-2024 08:35-0400 Body height 172.[address] Sharon Osorio MD Work Phone: [facility] 10-02-2024 08:35-0400 Body mass index (BMI) [Ratio] 24.9 kg/m2 Dr. Sharon Osorio MD Work Phone: [facility] 10-02-2024 08:35-0400 Body temperature 97.5 [degF] Dr. Sharon Osorio MD Work Phone: [facility] 10-02-2024 08:35-0400 Body weight 74.[address] Sharon Osorio MD Work Phone: [facility] 10-02-2024 08:35-0400 Diastolic blood pressure 63 mm[Hg] Dr. Sharon Osorio MD Work Phone: [facility] 10-02-2024 08:35-0400 Heart rate 84 /min Dr. Sharon Osorio MD Work Phone: [facility] 10-02-2024 08:35-0400 Respiratory rate 18 /min Dr. Sharon Osorio MD Work Phone: [facility] 10-02-2024 08:35-0400 SaO2% (BldA) [Mass fraction] 93 % Dr. Sharon Osorio MD Work Phone: [facility] 10-02-2024 08:35-0400 Systolic blood pressure 111 mm[Hg] Dr. Sharon Osorio MD Work Phone: [facility] 06-05-2024 08:14-0500 Body temperature 97.7 [degF] Dr. Sharon Osorio MD Work Phone: [facility] 06-05-2024 08:14-0500 Diastolic blood pressure 80 mm[Hg] Dr. Sharon Osorio MD Work Phone: [facility] 06-05-2024 08:14-0500 Heart rate 94 /min Dr. Sharon Osorio MD Work Phone: [facility] 06-05-2024 08:14-0500 Respiratory rate 20 /min Dr. Sharon Osorio MD Work Phone: [facility] 06-05-2024 08:14-0500 SaO2% (BldA) [Mass fraction] 88 % Dr. Sharon Osorio MD Work Phone: [facility] 06-05-2024 08:14-0500 Systolic blood pressure 150 mm[Hg] Dr. Sharon Osorio MD Work Phone: [facility] 04-20-2023 15:16-0500 Body height 172.[address] Sharon Osorio Work Phone: [facility] 04-20-2023 15:16-0500 Body mass index (BMI) [Ratio] 26.7 kg/m2 Dr. Sharon Osorio Work Phone: [facility] 04-20-2023 15:16-0500 Body temperature 97 [degF] Dr. Sharon Osorio Work Phone: [facility] 04-20-2023 15:16-0500 Body weight 79.[address] Sharon Osorio Work Phone: [facility] 04-20-2023 15:16-0500 Diastolic blood pressure 80 mm[Hg] Dr. Sharon Osorio Work Phone: [facility] 04-20-2023 15:16-0500 Heart rate 82 /min Dr. Sharon Osorio Work Phone: [facility] 04-20-2023 15:16-0500 Respiratory rate 18 /min Dr. Sharon Osorio Work Phone: [facility] 04-20-2023 15:16-0500 SaO2% (BldA) [Mass fraction] 96 % Dr. Sharon Osorio Work Phone: [facility] 04-20-2023 15:16-0500 Systolic blood pressure 130 mm[Hg] Dr. Sharon Osorio Work Phone: [facility] 04-12-2023 06:02-0500 Body mass index (BMI) [Ratio] 26.6 kg/m2 Dr. Sharon Osorio Work Phone: [facility] 04-12-2023 06:02-0500 Body temperature 98.2 [degF] Dr. Sharon Osorio Work Phone: [facility] 04-12-2023 06:02-0500 Body weight 79.[address] Sharon Osorio Work Phone: [facility] 04-12-2023 06:02-0500 Diastolic blood pressure 72 mm[Hg] Dr. Sharon Osorio Work Phone: [facility] 04-12-2023 06:02-0500 Heart rate 90 /min Dr. Sharon Osorio Work Phone: [facility] 04-12-2023 06:02-0500 Inhaled oxygen flow rate 94 L/min Dr. Sharon Osorio Work Phone: [facility] 04-12-2023 06:02-0500 Respiratory rate 20 /min Dr. Sharon Osorio Work Phone: [facility] 04-12-2023 06:02-0500 SaO2% (BldA) [Mass fraction] 94 % Dr. Sharon Osorio Work Phone: [facility] 04-12-2023 06:02-0500 Systolic blood pressure 151 mm[Hg] Dr. Sharon Osorio Work Phone: [facility] 01-16-2023 15:19-0400 Body mass index (BMI) [Ratio] 26.8 kg/m2 Dr. Sharon Osorio Work Phone: [facility] 01-16-2023 15:19-0400 Body temperature 97.6 [degF] Dr. Sharon Osorio Work Phone: [facility] 01-16-2023 15:19-0400 Body weight [address] Sharon Osorio Work Phone: [facility] 01-16-2023 15:19-0400 Diastolic blood pressure 78 mm[Hg] Dr. Sharon Osorio Work Phone: [facility] 01-16-2023 15:19-0400 Heart rate 76 /min Dr. Sharon Osorio Work Phone: [facility] 01-16-2023 15:19-0400 Respiratory rate 20 /min Dr. Sharon Osorio Work Phone: [facility] 01-16-2023 15:19-0400 SaO2% (BldA) [Mass fraction] 96 % Dr. Sharon Osorio Work Phone: [facility] 01-16-2023 15:19-0400 Systolic blood pressure 130 mm[Hg] Dr. Sharon Osorio Work Phone: [facility] 12-07-2022 08:38-0400 Body height 172.[address] Sharon Osorio Work Phone: [facility] 12-07-2022 08:38-0400 Body mass index (BMI) [Ratio] 26.7 kg/m2 Dr. Sharon Osorio Work Phone: [facility] 12-07-2022 08:38-0400 Body temperature 97.5 [degF] Dr. Sharon Osorio Work Phone: [facility] 12-07-2022 08:38-0400 Body weight 79.[address] Sharon Osorio Work Phone: [facility] 12-07-2022 08:38-0400 Diastolic blood pressure 76 mm[Hg] Dr. Sharon Osorio Work Phone: [facility] 12-07-2022 08:38-0400 Heart rate 78 /min Dr. Sharon Osorio Work Phone: [facility] 12-07-2022 08:38-0400 Respiratory rate 20 /min Dr. Sharon Osorio Work Phone: [facility] 12-07-2022 08:38-0400 SaO2% (BldA) [Mass fraction] 95 % Dr. Sharon Osorio Work Phone: [facility] 12-07-2022 08:38-0400 Systolic blood pressure 150 mm[Hg] Dr. Sharon Osorio Work Phone: [facility] 09-07-2022 14:58-0400 Body mass index (BMI) [Ratio] 26.2 kg/m2 Dr. Sharon Osorio Work Phone: [facility] 09-07-2022 14:58-0400 Body temperature 98.3 [degF] Dr. Sharon Osorio Work Phone: [facility] 09-07-2022 14:58-0400 Body weight 78.[address] Sharon Osorio Work Phone: [facility] 09-07-2022 14:58-0400 Diastolic blood pressure 62 mm[Hg] Dr. Sharon Osorio Work Phone: [facility] 09-07-2022 14:58-0400 Heart rate 84 /min Dr. Sharon Osorio Work Phone: [facility] 09-07-2022 14:58-0400 Respiratory rate 18 /min Dr. Sharon Osorio Work Phone: [facility] 09-07-2022 14:58-0400 SaO2% (BldA) [Mass fraction] 90 % Dr. Sharon Osorio Work Phone: [facility] 09-07-2022 14:58-0400 Systolic blood pressure 122 mm[Hg] Dr. Sharon Osorio Work Phone: [facility] 03-12-2022 15:20-0500 Diastolic blood pressure 68 mm[Hg] Dr. Sharon Osorio Work Phone: [facility] Work Phone: 03-12-2022 15:20-0500 Heart rate 65 /min Dr. Sharon Osorio Work Phone: [facility] Work Phone: 03-12-2022 15:20-0500 Respiratory rate 23 /min Dr. Sharon Osorio Work Phone: [facility] Work Phone: 03-12-2022 15:20-0500 SaO2% (BldA) [Mass fraction] 95 % Dr. Sharon Osorio Work Phone: [facility] Work Phone: 03-12-2022 15:20-0500 Systolic blood pressure 141 mm[Hg] Dr. Sharon Osorio Work Phone: [facility] Work Phone: 03-12-2022 11:04-0500 Body height 172.[address] Sharon Osorio Work Phone: [facility] Work Phone: 03-12-2022 11:04-0500 Body mass index (BMI) [Ratio] 24.7 kg/m2 Dr. Sharon Osorio Work Phone: [facility] Work Phone: 03-12-2022 11:04-0500 Body temperature 96.7 [degF] Dr. Sharon Osorio Work Phone: [facility] Work Phone: 03-12-2022 11:04-0500 Body weight 73.[address] Sharon Osorio Work Phone: [facility] Work Phone: 03-03-2022 10:15-0500 Body height 172.[address] Sharon Osorio Work Phone: [facility] Work Phone: 03-03-2022 10:15-0500 Body mass index (BMI) [Ratio] 24.7 kg/m2 Dr. Sharon Osorio Work Phone: [facility] Work Phone: 03-03-2022 10:15-0500 Body temperature 97.1 [degF] Dr. Sharon Osorio Work Phone: [facility] Work Phone: 03-03-2022 10:15-0500 Body weight 73.[address] Sharon Osorio Work Phone: [facility] Work Phone: 03-03-2022 10:15-0500 Diastolic blood pressure 65 mm[Hg] Dr. Sharon Osorio Work Phone: [facility] Work Phone: 03-03-2022 10:15-0500 Heart rate 82 /min Dr. Sharon Osorio Work Phone: [facility] Work Phone: 03-03-2022 10:15-0500 Respiratory rate 20 /min Dr. Sharon Osorio Work Phone: [facility] Work Phone: 03-03-2022 10:15-0500 SaO2% (BldA) [Mass fraction] 93 % Dr. Sharon Osorio Work Phone: [facility] Work Phone: 03-03-2022 10:15-0500 Systolic blood pressure 135 mm[Hg] Dr. Sharon Osorio Work Phone: [facility] Work Phone: 03-01-2022 11:13-0500 Body temperature 96.5 [degF] Dr. Sharon Osorio Work Phone: [facility] Work Phone: 03-01-2022 11:13-0500 Body weight 72.[address] Sharon Osorio Work Phone: [facility] Work Phone: 03-01-2022 11:13-0500 Diastolic blood pressure 84 mm[Hg] Dr. Sharon Osorio Work Phone: [facility] Work Phone: 03-01-2022 11:13-0500 Heart rate 70 /min Dr. Sharon Osorio Work Phone: [facility] Work Phone: 03-01-2022 11:13-0500 Respiratory rate 18 /min Dr. Sharon Osorio Work Phone: [facility] Work Phone: 03-01-2022 11:13-0500 SaO2% (BldA) [Mass fraction] 96 % Dr. Sharon Osorio Work Phone: [facility] Work Phone: 03-01-2022 11:13-0500 Systolic blood pressure 136 mm[Hg] Dr. Sharon Osorio Work Phone: [facility] Work Phone: 12-24-2021 10:17-0400 Body temperature 98.2 [degF] Dr. Sharon Osorio Work Phone: [facility] Work Phone: 12-24-2021 10:17-0400 Diastolic blood pressure 52 mm[Hg] Dr. Sharon Osorio Work Phone: [facility] Work Phone: 12-24-2021 10:17-0400 Heart rate 88 /min Dr. Sharon Osorio Work Phone: [facility] Work Phone: 12-24-2021 10:17-0400 Respiratory rate 16 /min Dr. Sharon Osorio Work Phone: [facility] Work Phone: 12-24-2021 10:17-0400 SaO2% (BldA) [Mass fraction] 96 % Dr. Sharon Osorio Work Phone: [facility] Work Phone: 12-24-2021 10:17-0400 Systolic blood pressure 112 mm[Hg] Dr. Sharon Osorio Work Phone: [facility] Work Phone: 12-20-2021 13:08-0400 Body temperature 98 [degF] Dr. Sharon Osorio Work Phone: [facility] Work Phone: 12-20-2021 13:08-0400 Diastolic blood pressure 62 mm[Hg] Dr. Sharon Osorio Work Phone: [facility] Work Phone: 12-20-2021 13:08-0400 Heart rate 82 /min Dr. Sharon Osorio Work Phone: [facility] Work Phone: 12-20-2021 13:08-0400 Respiratory rate 16 /min Dr. Sharon Osorio Work Phone: [facility] Work Phone: 12-20-2021 13:08-0400 SaO2% (BldA) [Mass fraction] 93 % Dr. Sharon Osorio Work Phone: [facility] Work Phone: 12-20-2021 13:08-0400 Systolic blood pressure 148 mm[Hg] Dr. Sharon Osorio Work Phone: [facility] Work Phone: 12-03-2021 11:11-0400 Body mass index (BMI) [Ratio] 25.2 kg/m2 Dr. Sharon Osorio Work Phone: [facility] Work Phone: 12-03-2021 11:11-0400 Body temperature 98.6 [degF] Dr. Sharon Osorio Work Phone: [facility] Work Phone: 12-03-2021 11:11-0400 Body weight 75.[address] Sharon Osorio Work Phone: [facility] Work Phone: 12-03-2021 11:11-0400 Diastolic blood pressure 60 mm[Hg] Dr. Sharon Osorio Work Phone: [facility] Work Phone: 12-03-2021 11:11-0400 Heart rate 75 /min Dr. Sharon Osorio Work Phone: [facility] Work Phone: 12-03-2021 11:11-0400 Respiratory rate 16 /min Dr. Sharon Osorio Work Phone: [facility] Work Phone: 12-03-2021 11:11-0400 SaO2% (BldA) [Mass fraction] 92 % Dr. Sharon Osorio Work Phone: [facility] Work Phone: 12-03-2021 11:11-0400 Systolic blood pressure 117 mm[Hg] Dr. Sharon Osorio Work Phone: [facility] Work Phone: 06-23-2021 08:42-0500 Body height 172.[address] Sharon Osorio Work Phone: [facility] Work Phone: 06-23-2021 08:42-0500 Body weight 75.[address] Sharon Osorio Work Phone: [facility] Work Phone: 06-23-2021 08:42-0500 Diastolic blood pressure 80 mm[Hg] Dr. Sharon Osorio Work Phone: [facility] Work Phone: 06-23-2021 08:42-0500 Heart rate 93 /min Dr. Sharon Osorio Work Phone: [facility] Work Phone: 06-23-2021 08:42-0500 Respiratory rate 18 /min Dr. Sharon Osorio Work Phone: [facility] Work Phone: 06-23-2021 08:42-0500 SaO2% (BldA) [Mass fraction] 99 % Dr. Sharon Osorio Work Phone: [facility] Work Phone: 06-23-2021 08:42-0500 Systolic blood pressure 131 mm[Hg] Dr. Sharon Osorio Work Phone: [facility] Work Phone: 06-17-2020 12:06-0500 Body mass index (BMI) [Ratio] 25.9 kg/m2 Dr. Sharon Osorio Work Phone: [facility] Work Phone: Encounters Encounter Date Encounter Type Care Provider Facility Start: 12-25-2024 End: 12-25-2024 ambulatory Sharon Osorio Facility:[facility] Start: 12-16-2024 ambulatory Sharon Osorio Facili ty:[facility] Start: 12-16-2024 Non-patient / Non-visit Dr. Nona MARTINEZ -[facility] Start: 12-11-2024 End: 12-11-[address] Sharon Osorio MD Work Phone: -Cardiovascular Services Start: 12-11-2024 End: 12-11-[address] Sharon Osorio MD -Cardiovascular Services Work Phone: Start: 12-11-2024 End: 12-11-2024 ambulatory [facility] Facility:[facility] Start: 12-03-2024 Non-patient / Non-visit Dr. Nona MARTINEZ -[facility] Work Phone: Start: 12-03-2024 End: 12-03-[address] Sharon Osorio MD Work Phone: -Pulmonary Services/Neurology Start: 12-03-2024 End: 12-03-[address] Sharon Osorio MD -Pulmonary Services/Neurology Work Phone: Start: 12-03-2024 End: 12-03-2024 ambulatory [facility] Facility:[facility] Start: 11-26-2024 End: 11-26-2024 Patient encounter procedure Sharon LAUREN -[facility] Work Phone: Start: 11-26-2024 End: 11-26-[address] Sharon Osorio MD Work Phone: -[facility] Start: 11-14-2024 End: 11-14-[address] Sharon Osorio MD Work Phone: -[facility] Start: 11-14-2024 End: 11-14-[address] Sharon Osorio MD -[facility] Work Phone: Start: 11-14-2024 End: 11-14-2024 ambulatory [facility] Facility:[facility] Start: 10-10-2024 Non-patient / Non-visit Dr. Elgin huang DO -[facility] Start: 10-10-2024 ambulatory Elgin Trujillo Facility:[facility] Start: 10-08-2024 End: 10-08-[address] Sharon Osorio MD Work Phone: -Pulmonary Services/Neurology Start: 10-08-2024 End: 10-08-2024 Patient encounter procedure Sharon Hester [employer] -Pulmonary Services/Neurology Work Phone: Start: 10-08-2024 End: 10-08-2024 ambulatory Sharon Hester [employer] Facility:[facility] Start: 10-02-2024 End: 10-02-2024 Patient encounter procedure Sharon Hester [employer] -[facility] Work Phone: Start: 10-02-2024 End: 10-02-[address] Sharon Osorio MD Work Phone: [facility] Work Phone: Start: 06-05-2024 End: 06-05-[address] Weston Mccarthy MD -[facility] Start: 06-05-2024 End: 06-05-2024 ambulatory [facility] Start: 06-05-2024 End: 06-05-2024 Patient encounter procedure Sergio Ramirez [employer] -[facility] Work Phone: Start: 06-05-2024 End: 06-05-2024 ambulatory [facility] Start: 05-16-[address] Sharon Osorio MD Work Phone: [facility] Start: 05-16-2024 End: 05-16-2024 ambulatory [facility] Start: 05-16-2024 End: 05-16-2024 ambulatory [facility] Facility:[facility] Start: 01-07-2024 End: 01-07-2024 ambulatory Bala Hussein [employer] Facility:[facility] Start: 04-20-2023 End: 04-20-[address] Sharon Osorio Work Phone: [facility] Work Phone: Start: 04-20-2023 End: 04-20-[address] Sharon Osorio Work Phone: [facility] Internal Medicine Work Phone: Start: 04-12-2023 End: 04-12-[address] [facility] Work Phone: Start: 01-16-2023 End: 01-16-[address] Sharon Osorio Work Phone: [facility] Work Phone: Start: 12-12-2022 End: 12-12-[address] Sharon Osorio Work Phone: [facility] Work Phone: Start: 12-12-2022 End: 12-12-[address] Sharon Osorio Work Phone: [facility]-Laboratory, Specimen Work Phone: Start: 12-07-2022 End: 12-07-[address] Sharon Osorio Work Phone: [facility]-Pulmonary Medicine [facility] Work Phone: Start: 12-01-2022 End: 12-01-[address] Sharon Osorio Work Phone: [facility] Work Phone: Start: 12-01-2022 End: 12-01-[address] Sharon Osorio Work Phone: [facility]-Cat Scan, [facility] Work Phone: Start: 09-07-2022 End: 09-07-[address] Sharon Osorio Work Phone: [facility] Work Phone: Start: 03-12-2022 End: 03-12-2022 Emergency department patient visit Dr. Sharon Osorio Work Phone: [facility]-Emergency Department Start: 03-03-2022 End: 03-03-[address] [facility] Start: 03-01-2022 End: 03-01-[address] Sharon Osorio Work Phone: [facility] Work Phone: Start: 03-01-2022 End: 03-01-[address] Sharon Osorio Work Phone: [facility] Start: 03-01-[address] Sharon Osorio Work Phone: [facility] Start: 03-01-2022 End: 03-01-2022 Encounter for general adult medical examination without abnormal findings Dr. Sharon Osorio Work Phone: [facility] Internal Medicine Start: 03-01-2022 End: 03-01-[address] Sharon Osorio Work Phone: [facility] Start: 12-24-2021 End: 12-24-[address] Sharon Osorio Work Phone: [facility] Start: 12-20-2021 End: 12-20-[address] Sharon Osorio Work Phone: [facility] Start: 12-03-2021 End: 12-03-[address] Sharon Osroio Work Phone: [facility]-Pulmonary Medicine [facility] Start: 11-25-2021 End: 11-25-2021 Patient encounter procedure [facility]-Cat Scan, [facility] Start: 08-11-2021 ambulatory Alice Cheema RN Work Phone: [employer] Comment on above: Community Monitoring Outreach ([facility] ) Start: 07-05-2021 End: 07-05-[address] Sharon Osorio Work Phone: [facility]-Laboratory Start: 06-23-2021 End: 06-23-[address] Sharon Osorio Work Phone: [facility] Start: 03-31-2021 End: 03-31-[address] Sharon Osorio Work Phone: [facility] Int [facility] Virtual Start: 08-01-2018 End: 08-04-2018 Evaluation and management of inpatient JIA VICTORIA Facility:[facility] Procedures Date Procedure Procedure Detail Performing Clinician Start: 12-11-2024 Cardiovascular stres s test using pharmacologic stress agent Dr. Sharon Osorio MD Work Phone: Start: 06-05-2024 X-ray of chest, PA a [...] CBC W Auto Differential panel - Blood [facility] Start: 11-14-2024 Comprehensive metabolic 2000 panel - Serum or Plasma [facility] Start: 11-14-2024 Hemoglobin A1c/Hemoglobin.total in Blood [facility] Start: 08-03-2023 LIPID SCREEN LIPID SCREEN [facility] Start: 12-12-2022 Respiratory microbial culture Respiratory Culture [facility] Start: 12-12-2022 Bacteria identified in Sputum by Culture [facility] Start: 03-12-2022 Oxygen therapy [facility] Work Phone: Start: 03-12-2022 [facility] Work Phone: Start: 12-16-2021 Influenza vaccination INFLUENZA (Season Ended) [facility] Start: 08-04-2021 DIABETES SCREEN DIABETES SCREEN [facility] Start: 04-17-2021 ADVANCE DIRECTIVE DISCUSSION ADVANCE DIRECTIVE DISCUSSION [facility] Start: 07-04-2019 ANNUAL PCP TEAM CHRONIC DISEASE VISIT ANNUAL PCP TEAM CHRONIC DISEASE VISIT [facility] Start: 11-11-2018 Colonoscopy COLONOSCOPY [facility] Start: 11-11-2018 COLORECTAL CANCER SCREENING COLORECTAL CANCER SCREENING [facility] Start: 03-18-2001 Urine microalbumin profile DTAP,TDAP,TD (1 - Tdap) [facility] Start: 1999 SHINGRIX VACCINE (1 of 2) SHINGRIX VACCINE (1 of 2) [facility] Start: 1994 COLOGUARD (FIT-DNA) COLOGUARD (FIT-DNA) [facility] Start: [address] COLONOGRAPHY [facility] Start: 1994 FECAL OCCULT BLOOD FECAL OCCULT BLOOD [facility] Start: 1994 SIGMOIDOSCOPY SIGMOIDOSCOPY [facility] Start: 1967 BP CONTROLLED (<130/80) BP CONTROLLED (<130/80) [facility] Start: 1954 COVID-19 VACCINE (1) COVID-19 VACCINE (1) [facility] Acid fast bacilli culture [facility] Work Phone: Alanine aminotransfe rase [Enzymatic activity/volume] in Serum or Plasma [facility] Albumin [Mass/volume ] in Serum or Plasma [facility] Alkaline phosphatase [Enzymatic activity/volume] in Serum or Plasma [facility] Anion gap in Serum or Plasma [facility] Bacteria identified in Sputum by Culture [facility] Work Phone: Bilirubin, total measurement [facility] BUN/Creatinine ratio [facility] Calcium [Mass/volume ] in Serum or Plasma [facility] Carbon dioxide, tota l [Moles/volume] in Central venous blood [facility] Creatinine [Mass/vol ume] in Serum or Plasma [facility] CT Chest [facility] Work Phone: CT Chest [facility] CT Chest [facility] Electrocardiographic procedure [facility] Erythrocyte mean cor puscular volume determination [facility] Glucose [Mass/volume ] in Serum or Plasma [facility] Hematocrit [Volume F raction] of Blood [facility] Hemoglobin [Mass/vol ume] in Blood [facility] Leukocytes [#/volume] in Blood [facility] Mean corpuscular hem oglobin concentration determination [facility] Mean corpuscular hem oglobin determination [facility] Measurement of renal function [facility] Measurement of respi ratory function [facility] Measurement of respi ratory function [facility] Neutrophil count [facility] Neutrophil percent differential count [facility] NM Heart Views W str ess and W radionuclide IV [facility] Patient referral [facility] Work Phone: Platelets [#/volume] in Blood [facility] Potassium measurement [facility] Red blood cell count [facility] Red cell distributio n width determination [facility] Serum chloride measurement [facility] Sodium measurement [facility] Testosterone measurement [facility] Total protein measurement [facility] Urea nitrogen [Mass/ volume] in Serum or Plasma [facility] Walking distance [facility] Immunizations Immunization Date Immunization Notes Care Provider Giancarlo [email or web address] 01-16-2023 influenza, injectabl e, quadrivalent, preservative free Dr. Sharon Osorio Work Phone: [facility] 03-01-2022 influenza, injectabl e, quadrivalent, preservative free Dr. Sharon Osorio Work Phone: [facility] 03-01-2022 influenza, seasonal, injectable Dr. Sharon Osorio Work Phone: [facility] 12-08-[address] Sharon Osorio Work Phone: [facility] 02-03-2020 Fluad Quad [id number](65yr up)(PF) 60 mcg (15 mcg x 4)/0.5mL IM syringe (flu vac Dr. Sharon Osorio Work Phone: [facility] Work Phone: 02-03-2020 influenza, injectabl e, quadrivalent, preservative free Dr. Sharon Osorio Work Phone: [facility] 02-03-2020 influenza, seasonal, injectable Dr. Sharon Osorio Work Phone: [facility] 01-18-2019 pneumococcal conjuga te vaccine, [address] Sharon Osorio Work Phone: [facility] 01-18-2019 pneumococcal vaccine , unspecified formulation Dr. Sharon Osorio Work Phone: [facility] Work Phone: 01-18-2019 Fluad 2018- 65yr up(PF)45 mcg(15 mcgx3)/0.5 mL intramuscular syringe (flu vac Dr. Sharon Osorio Work Phone: [facility] Work Phone: 12-27-2017 influenza, high dose seasonal, preservative-free Alice Cheema RN Work Phone: [facility] 02-23-2016 influenza, high dose seasonal, preservative-free Alice Cheema RN Work Phone: [facility] 02-23-2016 pneumococcal conjuga te vaccine, 13 valent Alice Cheema RN Work Phone: [facility] 06-25-2014 pneumococcal polysaccharide vaccine, 23 valent Alice Cheema RN Work Phone: [facility] 06-19-2002 pneumococcal polysaccharide vaccine, 23 valent Alice Cheema RN Work Phone: [facility] Work Phone: 03-17-2001 tetanus and diphther ia toxoids, adsorbed, preservative free, for adult use (2 Lf of tetanus toxoid and 2 Lf of diphtheria toxoid) Alice Cheema RN Work Phone: [facility] Work Phone: Payers Date Payer Category Payer Self-pay [id number] 2023 Medicaid [id number] 2023 Unknown [id number] 2018 Medicare HUMANA MEDICARE HUMANA MEDICARE PPO [id number] 2018-Present [phone] [address] [address] [place] [address] PPO [id number] 1950 Unknown [id number] Medicare [id number] Medicare [id number] Medicare [id number] Unknown [id number] Unknown [id number] Unknown [id number] [id number] Unknown [id number] [id number] Unknown [id number] [id number] Unknown [id number] [id number] Unknown [id number] [id number] Unknown [id number] [id number] Unknown [id number] [id number] Unknown [id number] [id number] Unknown [id number] [id number] Unknown [id number] [id number] Unknown [id number] [id number] Unknown [id number] [id number] Unknown [id number] [id number] Unknown [id number] [id number] Unknown [id number] [id number] Unknown [id number] Social History Date Type Detail Facility Start: 06-23-2021 End: 04-20-2023 Tobacco smoking status NHIS Unknown if ever smoked [facility] Start: 11-11-2019 Non-smoker [facility] Start: 1950 Sex Assigned At Male [facility] Start: 06-05-2024 [facility] Work Phone: Start: 01-12-1962 End: 06-10-2001 History of tobacco use Current smoker [facility] Work Phone: Start: 01-12-1962 End: 06-10-2001 History of tobacco use Cigarette Smoker [facility] Work Phone: Start: 07-27-2018 Alcohol intake Current non-dr toll line repairer of alcohol (finding) [facility] Start: 01-12-2018 Tobacco Comment Parents smoked in childhood home. 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 October 02 025 11:03am [facility] Work Phone: 1(330) 245-502806-18-2025 Evaluation note* Diagnosis Onset Date Resolution Status [...] GOLD classification chronic November 14, 2024 2:01pm [facility] Work Phone: 1(709) 575-460806-18-2025 Evaluation note* Diagnosis Onset Date Resolution Status [...] by GOLD classification chronic November 26 10:40am [facility] Work Phone: 1(792) 830-760102-19-2025 Evaluation note* Diagnosis Onset Date Resolution Status Admit Date COPD exacerbation chronic 2024 8:06am Shortness of breath chronic October 02, 2024 11:03am [facility] Work Phone: 1(252) 703-547604-27-2022 NoteHNO ID: [id number] Author: Alice Cheema RN Service: ? Author Type: Registered Nurse Type: Progress Notes Filed: 08/11/2021 2:12 PM Note Text: [facility] Enrollment Provider Action/FYI: No PCP Patient referred by: C Eddie Contact made with patient: Patient not outreached at this time. Closing: Patient does not meet criteria. PCC to reassess patient in a month. [facility] of Present illness Narrative* Alice Cheema RN - 08/11/2021 2:11 PM EDT [facility] Enrollment Provider Action/FYI: No PCP Patient referred by: [facility] Eddie Contact made with patient: Patient not outreached at this time. Closing: Patient does not meet criteria. PCC to reassess patient in a month. [facility] NotePatient Outreach ([facility]) ANITA GUZMAN ([id number]) 1950 M Date Time Provider Department 08/11/21 ALICE CHEEMA During your visit today, we recorded the following information about you: Alice Cheema RN 08/11/2021 2:12 PM Signed [facility] Enrollment Provider Action/FYI: No PCP Patient referred by: [facility] Eddie Contact made with patient: Patient not outreached at this time. Closing: Patient does not meet criteria. PCC to reassess patient in a month. END OUTREACH Allergies As of Date: 08/11/2021 (No Known Allergies) Date Reviewed: 08/01/2018 Reviewed by: Cinda (Tu) [facility] - Fully Assessed Reason for Visit: Community Monitoring Outreach [Other] Cmt: [facility] Prescriptions as of 08/11/2021 - ZULYLESINDHU ELLIPTA 100-62.5-25 mcg dsdv Inhale 1 Puff [...] [I31.3] 08/01/2018 08/04/2018 Coronary artery disease of douglas artery with s*08/01/2018 08/04/2018 HTN (hypertension) [I10] 08/01/2018 COPD (chronic obstructive pulmonary disease) (H*08/08/2005 Encounter Status:Closed by ALICE CHEEMA on 08/11/21[facility] 08-26-2020 NoteHNO ID: [id number] Author: Teo De La Cruz RN Service: ? Author Type: Registered Nurse Type: Progress Notes Filed: 08/26/2020 1:42 PM Note Text: [facility] Enrollment Provider Action/FYI: NO PCP Patient referred by: PCC/PCP referral Contact made with patient: Patient not outreached at this time. Closing: Patient does not meet criteria. PCC to reassess patient in a month. [facility] NotePatient Outreach ([facility]) ANITA GUZMAN ([id number]) 1950 M Date Time Provider Department 08/26/20 TEO DE LA CRUZ During your visit today, we recorded the following information about you: Teo De La Cruz RN 08/26/2020 1:42 PM Signed [facility] Enrollment Provider Action/FYI: NO PCP Patient referred by: PCC/PCP referral Contact made with patient: Patient not outreached at this time. Closing: Patient does not meet criteria. PCC to reassess patient in a month. END OUTREACH Allergies As of Date: 08/26/2020 (No Known Allergies) Date Reviewed: 08/01/2018 Reviewed by: Cinda (Rn) [facility] - Fully Assessed Reason for Visit: [...] [I31.3] 08/01/2018 08/04/2018 Coronary artery disease of douglas artery with s*08/01/2018 08/04/2018 HTN (hypertension) [I10] 08/01/2018 COPD (chronic obstructive pulmonary disease) (H*08/08/2005 Encounter Status:Closed by TEO DE LA CRUZ on 08/26/20[facility] 08-01-2018 History of Past illness Narrative* Problem Noted Date Resolved Date Angina pectoris, crescendo 08/01/201808/04 S/P drug eluting coronary stent placement 201808/04/2018 Pericardial effusion 08/01/2018 08/04/2018 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 08/01/2018 08/04/2018 documented as of this encounter (statuses as of 08/11/2021) [facility] complaint+Reason for visit Narrative* Chief Complaint SMOKER 6 M FU COVID POSITIVE/WANTS MEDS COVID-19 MED REFILL 3 M FU Reason for Visit Stage 3 severe COPD by GOLD classification COVID-19 Encounter for screening for COVID-19 Encounter for preventative adult health care examination Restless leg syndrome Atherosclerosis of coronary artery of douglas heart without angina pectoris Essential hypertension Stage 3 severe COPD by GOLD classification Smoking greater than 40 pack years Stage 3 severe COPD by GOLD classification [facility] Work Phone: Chief complaint+Reason for visit Narrative* Chief Complaint SMOKER 6 M FU COVID POSITIVE/WANTS MEDS COVID-19 MED REFILL 3 M FU DIZZINESS Reason for Visit Stage 3 severe COPD by GOLD classification COVID-19 Encounter for screening for COVID-19 Encounter for preventative adult health care examination Restless leg syndrome Atherosclerosis of coronary artery of douglas heart without angina pectoris Essential hypertension Stage 3 severe COPD by GOLD classification Smoking greater than 40 pack years Stage 3 severe COPD by GOLD classification [facility] Work Phone: Evaluation note* Diagnosis Onset Date Resolution Status 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 Atherosclerosis of coronary artery of [place] heart without angina pectoris chronic Essential hypertension chron ic Hyperlipidemia chronic Presence of stent in coronary artery August 01, 2018 chronic [facility] Work Phone: Evaluation noteNo assessment information available [facility] Work Phone: Evaluation note* Diagnosis Onset Date Resolution Status 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 COVID-19 acute Encounter for screening for COVID-19 acute Encounter for preventative a dult health care examination acute Restless leg syndrome acute Atherosclerosis of coronary artery of [place] heart without angina pectoris chronic Essential hypertension chron ic 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 Smoking greater than 40 pack years chronic 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 [facility] Work Phone: Evaluation note* Diagnosis Onset Date Resolution Status Emphysema with both acute and chronic bronchitis acute [facility] Work Phone: Evaluation note* Diagnosis Onset Date Resolution Status Emphysema with both acute and chronic bronchitis acute 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 Smoking greater than 40 pack years chronic 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 [facility] Work Phone: Evaluation note* Diagnosis Onset Date Resolution Status Flu vaccine need acute Essential hypertension chron ic Hyperlipidemia chronic Restless leg syndrome chroni c 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 Benign prostatic hyperplasia chronic Essential hypertension chron ic Hyperlipidemia chronic Restless leg syndrome chroni c Stage 3 severe COPD by GOLD classification [facility] Work Phone: Reason for referral (narrative)No reason for referral [facility] Work [facility]: Summary Purpose Family [...] No March 30 021 3:49pm Power of Furniture Duster No March 30, 2021 3:49pm Documents on File Type Date Recorded 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 Advance Directive(s) Advance Directive(s) 08/01/2018 6:27 AM Advance Directive Response Recorded Date/ Time Advance Directives No March 2:49pm Living Will No March 30, 021 2:49pm Power of Furniture Duster No March 30, 2021 2:49pm Advance Directive Response Recorded Date/ Time Advance Directives No March 2:49pm Living Will No March 12, 022 11:27am Power of Furniture Duster No March 12, 2022 11:27am Advance Directive Response Recorded Date/ Time Advance Directives No November 14 1:41pm Living Will No November 14, 2022 1:41pm Power of Furniture Duster No November 14 1:41pm Advance Directive Response Recorded Date/ Time Advance Directives No November 14 12:41pm Living Will No November 14, 2022 12:41pm Power of Furniture Duster No November 14 12:41pm Advance Directive Response Recorded Date/ Time Advance Directives No May 3:28pm Hospital Course Note HNO ID: [id number] Author: Diya hogue ([place]) [place] Service: Cardiovascular [...] GOLD classification Atherosclerosis of coronary artery of douglas heart without angina pectoris Essential hypertension Hyperlipidemia [...] di sease, uns October 10, 2024 10:07am Reason for Visit [...] CHEST PAIN December 03, 2024 12 :37pm Chief Complaint Admit Date Shortness of breath October 02, 2024 11:0 3am J44.9 - Chronic obstructive pulmonary di sease, uns October 08, 2024 12:14pm J44.9 - Chronic obstructive pulmonary di sease, uns October 10, 2024 10:07am 6 M FU November 14, 2024 2:01 pm 2 M FU November 26, 2024 10 :40am CHEST PAIN December 03, 2024 12 :37pm CHEST PAIN December 03, 2024 12 :53pm CHEST PAIN December 11, 2024 6: 49am CHEST PAIN December 16, 2024 2:26pm Additional Source Comments (unrecognized sect ion and content) No Status Records FoundNo Status Records FoundNo Status Records FoundNo Status Records Found INFORMATION SOURCE (unrecogn ized section and content) DATE CREATED AUTHOR 08/04/2018 [facility] DATE CREATED AUTHOR AUTHOR'S ORGANIZ ATION 09/05/2018 [facility] DATE CREATED AUTHOR AUTHOR'S ORGANIZ ATION 08/14/2021 [facility] DATE CREATED AUTHOR AUTHOR'S ORGANIZ ATION 01/04/2025 [facility] Goals (unrecognized section and content) [...] or prosecute any alcohol or drug abuse patient.[facility] Reason for Visit (unrecogniz ed section [...] Sharon Osorio MD Primary Care Provider, Refer [facility] Provider Active Colin Varela PA, PA Attending Provider Active Team Status: Inactive Member Role Status Dates Dr. Sharon Osorio MD Primary Care Provider Active Sharon Hester PELT DROPPER, PELT DROPPER-C Attending Provider, Referrin g Provider Active Team Status: Inactive Member Role Status Dates Dr. Sharon Osorio MD Primary Care Provider, Refer ring Provider Active Sharon Hester PELT DROPPER, PELT DROPPER-C Attending Provider Active Team Status: Inactive Member Role Status Dates Dr. Sharon Osorio MD Primary Care P rovider, Attending Provider, Referring Provider Active Team Status: [...] June 05, 2024 End: June 05, 2024 Sergio Ramirez NP-C Attending Provider Active Star t: June 05, [...] 2024 End: October 02, 2024 Sharon Hester PELT DROPPER, PELT DROPPER-C Attending Provider Active Start: October 02, 2024 [...] 2024 End: October 02, 2024 Sharon Hester PELT DROPPER, PELT DROPPER-C Attending Provider Active Start: October 02, 2024 End: October 02, 2024 Team Status: Inactive Member Role/Relationship Status Dates Dr. Sharon Osorio MD Primary Care Provider Active Start: October 08, 2024 End: October 08, 2024 Sharon Hester PELT DROPPER, PELT DROPPER-C Attending Provider Active Start: October 08, 2024 End: October 08, 2024 Sharon Hester PELT DROPPER, PELT DROPPER-C Referring Provider Active Start: October 08, 2024 End: October 08, 2024 Team Status: Active Member Role/Relationship Status Dates Dr. Sharon Osorio MD Primary Care Provider Active Start: October 10, 2024 Sharon Hester PELT DROPPER, PELT DROPPER-C Referring Provider Active Start: October 10, 2024 Sharon Hester PELT DROPPER, PELT DROPPER-C Other Provider Active Start: October 10, 2024 [...] 2024 End: November 26, 2024 Sharon Hester PELT DROPPER, PELT DROPPER-C Attending Provider Active Start: November 26, 2024 [...] December 03, 2024 End: December 03, 2024 Team Status: Active Member Role/Relationship Status Dates Dr. Sharon Osorio MD Primary Care Provider Active Start: December 03, 2024 Dr. Sharon Osorio MD Referring Provider Active Start: December 03, 2024 Dr. Weston Mccarthy MD Attending Provider Active S tart: December 03, 2024 Team Status: Inactive Member Role/Relationship Status Dates Dr. Sharon Osorio MD Primary Care Provider Active Start: December 11, 2024 End: December 11, 2024 Dr. Sharon Osorio MD Attending Provider Active Start: December 11, 2024 End: December 11, 2024 Dr. Sharon Osorio MD Referring Provider Active Start: December 11, 2024 End: December 11, 2024 Team Status: Active Member Role/Relationship Status Dates Dr. Sharon Osorio MD Primary Care Provider Active Start: December 16, 2024 Dr. Sharon Osorio MD Referring Provider Active Start: December 16, 2024 Dr. Sharon Osorio MD Other Provider Active Start: December 16, 2024 Dr. Weston Mccarthy MD Attending Provider Active S tart: December 16, 2024 FOR RECORDS PERTAINING TO PATIENTS WHO [...] BE BASED ON THE PRIMARY CLINICAL RECORDS. [facility] [place] [facility]. provides no warranty or guarantee of the accuracy or completeness of information in this document.
== END | disposition home or self-care (01) ==
PROVIDERS: PCP Internal Medicine; Referring Provider Student in an Organized Health Care Education/Training Program; Visit Provider Student in an Organized Health Care Education/Training Program
DX: J44.9 Chronic obstructive pulmonary disease, unspecified (principal)
CPT/HCPCS: 87205

== ENCOUNTER → 2025-01-10 | Outpatient (CLI) | payer MEDICARE, SELFPAY ==
--- OUTSIDE RECORDS SUMMARY | 2025-01-10 07:15 | XMS RPT_ITS | CCD ---
Author Organization [facility] Care Team Providers Care Sheriff Detective Name Role Phone JIA VICTORIA Admitting Unavailable Michael Arroyo Primary Care Unavailable UNKNOWN, PROVIDER Attending Unavailable KALLIE RAMEY Consulting Unavailable Dr. Sharon Osorio Primary Care Provider [phone] Dr. Sharon Osorio Referring Provider [phone] ELEN Banuelos Attending Provider Unavailab abbe Slater GM VIDEO, GM VIDEO-C Meg Attending Provider Unavailable Primary Care Provider UnavailDr. Sharon Aguilera Primary Care Provider [phone] Dr. Sharon Osorio Referring Provider [phone] Dr. Sam Hi Attending Provider ELEN Toney Attending Provider Terri GM VIDEO, GM VIDEO-C Michael Attending Provider [phone] Richard GM VIDEO, GM VIDEO-C Sharon Attending Provider Dr. Sharon Osorio Primary Care Provider [phone] Dr. Sharon Osorio Referring Provider [phone] ELEN Anthony Attending Provider Richard BABCOCK, GM VIDEO-C Sharon Attending Provider Dr. Sharon Osorio Primary Care Provider [phone] Dr. Sharon Osorio Attending Provider [phone] Dr. Sharon Osorio Referring Provider [phone] Dr. Sam Hi Attending Provider Jo MARTINEZ, Dr. Herrera Primary Care Provider Jo MARTINEZ, Dr. Herrera Referring Provider [phone] Momorrow GM VIDEO-C, Sergio Attending Provider Fabio MARTINEZ, Dr. Ontiveros Attending Provider [phone] Richard GM VIDEO-C, Sharon Attending Provider Jo MARTINEZ, Dr. Herrera Primary Care Provider Jo MARTINEZ, Dr. Herrera Referring Provider [phone] Richard GM VIDEO-C, Sharon Referring Provider Richard GM VIDEO-C, Sharon Other Provider [phone] Dr. Elgin Trujillo DO Attending Provider Jo MARTINEZ, Dr. Herrera Attending Provider [phone] Fabio MARTINEZ, Dr. Ontiveros Attending Provider [phone] Jo MARTINEZ, Dr. Herrera Other Provider Elgin Trujillo Attending Unavailable Oleghe, Efewongbe Primary Care Unavailable Richrad GM VIDEOSharon Consulting Unavailable Richard GM VIDEOSharon Referring Unavailable Oleghe, Efewongbe Primary Care Unavailable Oleghe, Efewongbe Referring Unavailable Fabio Weston Attending Unavailable Oleghe, Efewongbe Primary Care Unavailable Oleghe, Efewongbe Referring Unavailable Hester GM VIDEOSharon Attending Unavailable Oleghe, Efewongbe Primary Care Unavailable FabioWeston Attending Unavailable Oleghe, Efewongbe Primary Care Unavailable Moomaw, Sergio Attending Unavailable Oleghe, Efewongbe Referring Unavailable Oleghe, Efewongbe Referring Unavailable Oleghe, Efewongbe Primary Care Unavailable Oleghe, Efewongbe Attending Unavailable Oleghe, Efewongbe Referring Unavailable Hester GM VIDEO, Sharon Attending Unavailable Oleghe, Efewongbe Primary Care Unavailable Oleghe, Efewongbe Attending Unavailable Oleghe, Efewongbe Primary Care Unavailable Oleghe, Efewongbe Referring Unavailable Oleghe, Efewongbe Primary Care Unavailable Richard GM VIDEO, Sharon Referring Unavailable Richard GM VIDEO, Sharon Attending Unavailable Oleghe, Efewongbe Primary Care Unavailable Richard GM VIDEO, Sharon Referring Unavailable Richard GM VIDEO, Sharon Attending Unavailable Oleghe, Efewongbe Primary Care Unavailable Oleghe, Efewongbe Referring Unavailable Oleghe, Efewongbe Attending Unavailable Oleghe, Efewongbe Referring Unavailable Oleghe, Efewongbe Primary Care Unavailable Oleghe, Efewongbe Attending Unavailable Oleghe, Efewongbe Attending Unavailable Oleghe, Efewongbe Primary Care Unavailable Oleghe, Efewongbe Referring Unavailable Oleghe, Efewongbe Primary Care Unavailable Sharon Sheth Referring Unavailable Sharon Sheth Attending Unavailable Oleghe, Efewongbe Primary Care Unavailable Richard GM VIDEO, Sharon Attending Unavailable Richard GM VIDEO, Sharon Referring Unavailable Oleghe, Efewongbe Referring Unavailable Oleghe, Efewongbe Primary Care Unavailable Oleghe, Efewongbe Attending Unavailable Oleghe, Efewongbe Primary Care Unavailable Oleghe, Efewongbe Referring Unavailable Oleghe, Efewongbe Consulting Unavailable Weston Mccarthy Attending Unavailable Oleghe, Efewongbe Referring Unavailable Oleghe, Efewongbe Primary Care Unavailable Richard GM VIDEO, Sharon Attending Unavailable Medications Current Medications Medication Drug Class(es) Dates Sig (Normalized) Sig (Original) [id number] 200 actuat albuterol 0.09 mg/actuat metered dose [...] as needed for Sob &/Or Wheezing 180 June 15, 2020 1:09pm October 07, 2024 [...] 325 mg oral tablet (20 sources) Start: 5 take 1 tablet by mouth once daily [...] hr Discontinued 10 mg PO DAILY 90 1 February 19, 2024 5:27pm October 31, 2024 [...] Comment on above: Take 1 tablet by [facility] once daily. amoxicillin 875 mg / [...] Comment on above: Take 1 tablet by [facility] daily at bedtime. azithromycin 250 mg [...] D iscontinued 250 mg PO daily 6 November 14, 2022 3:03pm November 24, 2022 [...] 1 tablet by christa th once daily. clopidogrel 75 mg oral tablet [...] 12:00am December 16, 2019 1:13pm Fluad Quad [id number](65yr up)(PF) 60 mcg (15 mcg x 4)/0.5mL [...] 26, 2019 1:00am April 08, 2019 3:49pm Vnaajbbtzfe-Kptvllvgx-Jajzww er (20 sources) Anticholinergic, Corticosteroid, beta2-Adrenergic Agonist Start: 04-07-2023 End: 04-12-2023 Yixfdgofnyn-Dztryuprf-Mtuymn er 100-62.5-25 mcg blister with device Discontinued 1 NMA INHALATION DAILY 60 2 April 07, 2023 3:50pm April 12, 2023 3:09pm Start: 04-07-2023 End: 04-12-2023 Djrswsxrzxo-Gthbvyuoj-Knarvj er 100-62.5-25 mcg blister with device Discontinued 1 NMA INHALATION DAILY 60 April 07, 2023 3:50pm April 12, 2023 3:09pm Start: 04-07-2023 End: 04-12-2023 Krnllqjiudx-Kwgtyccmu-Dezcgj er Discontinued 1 EACH INHALATION DAILY 60 April 07, 2023 2:50pm April 12, 2023 2:09pm Start: 09-14-2022 End: 04-07-2023 Bfarxsokvdp-Rgqfliavq-Vwuhjk er 100-62.5-25 mcg blister with device Discontinued 1 NMA INHALATION DAILY 60 September 14, 2022 1:06pm April 07, 2023 3:50pm Start: 09-14-2022 End: 04-07-2023 Eqgjseiwnge-Wqdtidlna-Nnilev er 100-62.5-25 mcg blister with device Discontinued 1 NMA INHALATION DAILY 60 September 14, 2022 1:06pm April 07, 2023 3:50pm Start: 09-14-2022 End: 04-07-2023 Apoxqhsrsxt-Uncgmjqqq-Apxumb er Discontinued 1 EACH INHALATION DAILY 60 September 14, 2022 12:06pm April 07, 2023 2:50pm Start: 09-14-2022 Fluticasone-Um eclidin-Vilanter Active 1 EACH INHALATION DAILY 60 September 14, 2022 1:06pm Start: 2022 End: 09-14-2022 Gxyoxcdmwhm-Kcdoifixg-Tslcwd er 100-62.5-25 mcg blister with device Discontinued 1 NMA INHALATION DAILY 60 2022 3:48pm September 14, 2022 1:07pm Start: 2022 End: 09-14-2022 Oksiokkzevn-Qmoafuhdi-Ivuzyb er 100-62.5-25 mcg blister with device Discontinued 1 NMA INHALATION DAILY 60 2022 3:48pm September 14, 2022 1:07pm Start: 2022 End: 09-14-2022 Dtbrwfbxnnb-Gcxnstexc-Ozitcg er Discontinued 1 EACH INHALATION DAILY 60 2022 2:48pm September 14, 2022 12:07pm Start: 2022 End: 05-31-2023 Jovituyaymj-Evpczhsqu-Tnajxy er Discontinued 1 EACH INHALATION DAILY 60 2022 3:48pm September 14, 2022 1:07pm Start: 2022 Fluticasone-Um eclidin-Vilanter Active 1 EACH INHALATION DAILY 60 2022 2:48pm Start: 08-26-2021 End: 2022 Jcowimphdbl-Cpcdxnuuu-Sqbbnt er 100-62.5-25 mcg blister with device Discontinued 1 NMA INHALATION DAILY 60 5 August 26, 2021 9:32am 2022 3:48pm Start: 08-26-2021 End: 2022 Juwniktjzhj-Pjvpuqncu-Iqldbz er 100-62.5-25 mcg blister with device Discontinued 1 NMA INHALATION DAILY 60 August 26, 2021 9:32am 2022 3:48pm Start: 08-26-2021 End: 2022 Fepwwgvvcnv-Zdeqgxaef-Ukzayg er Discontinued 1 EACH INHALATION DAILY 60 August 26, 2021 9:32am 2022 3:48pm Start: 08-26-2021 End: 2022 Bauohkubxft-Nmfxhcsuk-Yzjofx er Discontinued 1 EACH INHALATION DAILY 60 August 26, 2021 8:32am 2022 2:48pm Start: 08-26-2021 Fluticasone-Um eclidin-Vilanter Active 1 EACH INHALATION DAILY 60 August 26, 2021 9:32am Start: 02-18-2021 End: 08-26-2021 Atvqkdfagxw-Cirqdfhql-Pckyec er 100-62.5-25 mcg blister with device Discontinued 1 NMA INHALATION DAILY 60 February 18, 2021 1:44pm August 26, 2021 9:32am Start: 02-18-2021 End: 08-26-2021 Hcnehnioaxq-Zyqwyqtgy-Couxos er 100-62.5-25 mcg blister with device Discontinued 1 NMA INHALATION DAILY 60 February 18, 2021 1:44pm August 26, 2021 9:32am Start: 02-18-2021 End: 05-12-2022 Jacqgkiezzw-Iztvegkmb-Wipwdf er Discontinued 1 EACH INHALATION DAILY 60 February 18, 2021 12:44pm August 26, 2021 8:32am Start: 02-18-2021 End: 08-26-2021 Jbdakhjhems-Scqdpmweu-Lkapvo er Discontinued 1 EACH INHALATION DAILY 60 February 18, 2021 1:44pm August 26, 2021 9:32am Start: 02-18-2021 Fluticasone-Um eclidin-Vilanter Active 1 EACH INHALATION DAILY 60 February 18, 2021 1:44pm Start: 08-24-2020 End: 02-18-2021 Tqtabhqcwts-Admkqizsd-Qincxi er 100-62.5-25 mcg blister with device Discontinued 1 NMA INHALATION DAILY 60 August 24, 2020 12:22pm February 18, 2021 1:44pm Start: 08-24-2020 End: 02-18-2021 Ndazkbrwepg-Bmbwvqtgw-Jgdeoe er 100-62.5-25 mcg blister with device Discontinued 1 NMA INHALATION DAILY 60 August 24, 2020 12:22pm February 18, 2021 1:44pm Start: 08-24-2020 End: 02-18-2021 Ppgrevdyiiq-Esbdtlthv-Xjwhpz er Discontinued 1 EACH INHALATION DAILY 60 August 24, 2020 11:22am February 18, 2021 12:44pm Start: 08-24-2020 End: 02-18-2021 Siqwnkaztpw-Mfqvyngwv-Nhmnlo er Discontinued 1 EACH INHALATION DAILY 60 August 24, 2020 12:22pm February 18, 2021 1:44pm Start: 08-22-2020 End: 08-24-2020 Ldbhwwadlmu-Nfdvpiiuu-Loomzy er 100-62.5-25 mcg blister with device Discontinued 1 NMA INHALATION DAILY 60 August 22, 2020 11:14am August 24, 2020 12:22pm Start: 08-22-2020 End: 08-24-2020 Turzxiublav-Rqgnmivqn-Iqcbjf er 100-62.5-25 mcg blister with device Discontinued 1 NMA INHALATION DAILY 60 August 22, 2020 11:14am August 24, 2020 12:22pm Start: 08-22-2020 End: 08-24-2020 Oavswvohidl-Frjjqavgv-Wcjvgg er Discontinued 1 EACH INHALATION DAILY 60 August 22, 2020 10:14am August 24, 2020 11:22am Start: 08-22-2020 End: 08-24-2020 Tdsqouinwqc-Suspuguln-Lldirj er Discontinued 1 EACH INHALATION DAILY 60 August 22, 2020 11:14am August 24, 2020 12:22pm Start: 02-03-2020 End: 08-22-2020 Plslhaglnoo-Gxbxwlnuc-Wlzovr er 100-62.5-25 mcg blister with device Discontinued 1 NMA INHALATION DAILY 60 5 February 03, 2020 2:32pm August 22, 2020 11:14am Start: 02-03-2020 End: 08-22-2020 Nmnbiddunwb-Ymlhkvlxp-Spajgv er 100-62.5-25 mcg blister with device Discontinued 1 NMA INHALATION DAILY 60 February 03, 2020 2:32pm August 22, 2020 11:14am Start: 02-03-2020 End: 08-22-2020 Clahsxjqlpd-Rewnxruja-Czegwm er Discontinued 1 EACH INHALATION DAILY 60 February 03, 2020 1:32pm August 22, 2020 10:14am Start: 02-03-2020 End: 08-22-2020 Tbcmrbhwzbe-Azrucgtfp-Pnlkdi er Discontinued 1 EACH INHALATION DAILY 60 February 03, 2020 2:32pm August 22, 2020 11:14am Start: 11-15-2019 End: 02-03-2020 Eqlbipchdhe-Vnslseuoe-Hvyjxu er 100-62.5-25 mcg blister with device Discontinued 1 NMA INHALATION DAILY 60 2 November 15, 2019 10:47am February 03, 2020 2:33pm Start: 11-15-2019 End: 02-03-2020 Otsibluexgu-Frrxlbjjg-Tjydpz er 100-62.5-25 mcg blister with device Discontinued 1 NMA INHALATION DAILY 60 November 15, 2019 10:47am February 03, 2020 2:33pm Start: 11-15-2019 End: 02-03-2020 Jtwdvmeznov-Mtvogzcfc-Htmvqt er Discontinued 1 EACH INHALATION DAILY 60 November 15, 2019 9:47am February 03, 2020 1:33pm Start: 11-15-2019 End: 02-03-2020 Nipipzkdxgr-Anyeoqupe-Roicel er Discontinued 1 EACH INHALATION DAILY 60 November 15, 2019 10:47am February 03, 2020 2:33pm Start: 09-02-2019 End: 11-15-2019 Ablsyegvmvn-Cvonglilj-Bhmfxs er Discontinued 1 PUFF IH 1500 September 02, 2019 10:43am November 15, 2019 10:48am Start: 09-02-2019 End: 11-15-2019 Trrjzahiide-Zcqhullbx-Blsptl er 1 EACH blister with device Discontinued 1 NMA IH 1500 September 02, 2019 12:00am November 15, 2019 10:48am Start: 09-02-2019 End: 11-15-2019 Uoukhszmrzx-Dubmlrdba-Dxhhxj er Discontinued 1 PUFF IH 1500 September 01, 2019 11:00pm November 15, 2019 9:48am Start: 09-02-2019 End: 11-15-2019 Oefekkwcihu-Abaimsxmf-Zvnrmt er Discontinued 1 PUFF IH 1500 September 02, 2019 12:00am November 15, 2019 10:48am Start: 04-08-2019 End: 07-09-2019 Uqxzhzoczam-Fefrffqxd-Fbrusg er (Trelegy Ellipta) 100-62.5-25 mcg blister with device Discontinued 1 INH INHALATION daily 60 April 08, 2019 3:49pm July 09, 2019 1:28pm administer at approximately the same time(s) each day Start: 04-08-2019 End: 07-09-2019 Vauhaxmbiet-Gasjyvors-Kelnkz er (Trelegy Ellipta) 100-62.5-25 mcg blister with device Discontinued 1 NMA INHALATION daily 60 3 April 08, 2019 1:00am July 09, 2019 1:28pm Chronic obstructive pulmonary disease, unspecified administer at approximately the same time(s) each day Start: 04-08-2019 End: 07-09-2019 Yysbwzmpilp-Kcjqgyfxl-Vzreyn er (Trelegy Ellipta) 100-62.5-25 mcg blister with device Discontinued 1 NMA INHALATION daily 60 April 08, 2019 1:00am July 09, 2019 1:28pm administer at approximately the same time(s) each day Start: 04-08-2019 End: 07-09-2019 Zebzcxjttxf-Fcnxqgzhc-Yhfaco er (Trelegy Ellipta) 100-62.5-25 mcg blister with device Discontinued 1 INH INHALATION daily 60 April 08, 2019 12:00am July 09, 2019 12:28pm administer at approximately the same time(s) each day Start: 04-08-2019 End: 07-09-2019 Fnntggqivdm-Tceidqavo-Zegsfu er (Trelegy Ellipta) 100-62.5-25 mcg blister with device Discontinued 1 INH INHALATION daily April 08, 2019 1:00am July 09, 2019 1:28pm administer at approximately the same time(s) each day Start: 02-01-2019 take 1 puff(s) by inhalation once daily as needed TRELEGY ELLIPTA 100-62.5-25 mcg dsdv Inh liliya 1 Puff as instructed once daily as needed. 1 Each 5 02/01/2019 Active Start: 08-07-2018 End: 02-26-2019 Wirdfecdtbv-Pqleakvnj-Piyram er (Trelegy Ellipta) 100-62.5-25 mcg blister with device Discontinued 1 INH INHALATION DAILY August 07, 2018 2:53pm February 26, 2019 12:07pm Start: 08-07-2018 End: 02-26-2019 Kdsopohsykk-Hwvjdaray-Rcrlve er (Trelegy Ellipta) 100-62.5-25 mcg blister with device Discontinued 1 NMA INHALATION DAILY August 07, 2018 12:00am February 26, 2019 12:07pm Start: 08-07-2018 End: 02-26-2019 Seshvqbxhoq-Muztxzcfg-Eynmen er (Trelegy Ellipta) 100-62.5-25 mcg blister with device Discontinued 1 INH INHALATION DAILY August 06, 2018 11:00pm February 26, 2019 11:07am Start: 08-07-2018 End: 02-26-2019 Hzfpkkdtvfl-Reahipsqy-Illyol er (Trelegy Ellipta) 100-62.5-25 mcg blister with device Discontinued 1 INH INHALATION DAILY August 07, 2018 12:00am February 26, 2019 12:07pm Start: 06-30-2018 End: 08-07-2018 Vbjogofsqbd-Ynssvufnb-Vwjcnu er Discontinued 1 EACH IH DAILY June 30, 2018 1:51pm August 07, 2018 3:09pm Start: 06-30-2018 End: 08-07-2018 take 1 dose by inhalation once daily Ncpajhpkykn-Ladbgbsmx-Zkpsfsbt 1 EACH blister with device Discontinued 1 NMA IH DAILY June 30, 2018 12:00am August 07, 2018 3:09pm Start: 06-30-2018 End: 08-07-2018 Nghudwssras-Kgrpwnlor-Nrcnyz er Discontinued 1 EACH IH DAILY June 29, 2018 11:00pm August 07, 2018 2:09pm Start: 06-30-2018 End: 08-07-2018 Wekisksrmfi-Iflnvelkb-Vfdksq er Discontinued 1 EACH IH DAILY June 30, 2018 12:00am August 07, 2018 3:09pm Comment on above: Inhale 1 Puff as ins tructed once daily as needed. Fluticasone-Umeclidin -Vilanter (20 sources) Start: 11-22-2024 End: 11-26-2024 Jckzjmfxzhi-Tbejbbnyl-Jjt anter (Trelegy Ellipta) 200-62.5-25 mcg blister with device Discontinued 1 NMA INHALATION DAILY 60 2 November 22, 2024 10:10am November 26, 2024 11:15am Start: 08-15-2024 End: 11-22-2024 Xcxxyqbgxkq-Vxpkbkncr-Xldrml er (Trelegy Ellipta) 200-62.5-25 mcg blister with [...] 15, 2024 4:51pm Start: 02-19-2024 End: 08-15-2024 Ewtbndzzwvn-Dfmosqubq-Cmmjvx er (Trelegy Ellipta) 200-62.5-25 mcg blister with device Discontinued 1 NMA INHALATION DAILY 60 3 February 19, 2024 5:28pm August 15, 2024 4:52pm Start: 02-19-2024 End: 08-15-2024 Yrsranihafg-Oasuhuduc-Cqbjui er (Trelegy Ellipta) 200-62.5-25 mcg blister with device Discontinued 1 NMA INHALATION DAILY 60 February 19, 2024 5:28pm August 15, 2024 4:52pm Start: 09-10-2023 End: 02-19-2024 Hunmaqwkkcs-Nakzdoyfq-Rvgsev er (Trelegy Ellipta) 200-62.5-25 mcg blister with device Discontinued 1 NMA INHALATION DAILY 60 0 September 10, 2023 4:38pm February 19, 2024 5:29pm Start: 09-10-2023 End: 02-19-2024 Mekdxttkmbl-Dgblgiffs-Ntyfjt er (Trelegy Ellipta) 200-62.5-25 mcg blister with device Discontinued 1 NMA INHALATION DAILY 60 September 10, 2023 4:38pm February 19, 2024 5:29pm Start: 08-08-2023 End: 09-10-2023 Cueqnfhchce-Rrwfhqexg-Edvrmm er (Trelegy Ellipta) 200-62.5-25 mcg blister with device Discontinued 1 NMA INHALATION DAILY 60 5 August 08, 2023 11:46am September 10, 2023 4:39pm Start: 08-08-2023 End: 09-10-2023 Gcrapcdlhvb-Uojopvjrn-Krcixf er (Trelegy Ellipta) 200-62.5-25 mcg blister with device Discontinued 1 NMA INHALATION DAILY 60 August 08, 2023 11:46am September 10, 2023 4:39pm Start: 04-12-2023 End: 08-08-2023 Zdabformqof-Ebqnvunxd-Dnmosk er (Trelegy Ellipta) 200-62.5-25 mcg blister with device Discontinued 1 NMA INHALATION DAILY 60 5 April 12, 2023 1:00am August 08, 2023 11:46am Start: 04-12-2023 End: 08-08-2023 Tdhkbxzgokl-Upijjjpet-Xuypbu er (Trelegy Ellipta) 200-62.5-25 mcg blister with [...] Comment on above: Take 1 capsule by [facility] three times daily for 30 days. [...] pack Discontinued 0 PO per package directions 0 December 25, 2023 12:00am May 16, 2024 2:51pm PO PER PKG DIR Start: 12-20-2021 End: 12-26-2021 take 1 tablet by mouth once Methylprednisolone (Medrol ([place])) 4 mg tablets,dose pack Discontinued 4 mg PO per package directions 21 6 December 20, 2021 12:00am December 25, 2021 [...] Disc ontinued 10 mg PO daily 30 March 25, 2019 1:00am April 08, 2019 [...] on above: Take 1 tablet by christa as needed (30 minutes prior intercourse.). ticagrelor 90 mg oral tablet (15 sources) Start: 08-02-19 End: 08-09-19 take 1 tablet by mouth twice daily Ticagrelor 90 mg tablet Discontinued 90 mg PO TWICE A DAY August 06, 2018 12:00am August 08, 2018 10:42am Comment on above: Take 1 tablet by christa twice daily. Tiotropium [place] (14 sources) Anticholinergic Start: 02-27-20 End: 04-08-20 take 1 puff(s) by inhalation once daily Tiotropium [place] (Spiriva Respimat) 2.5 mcg/actuation mist Discontinued 2 PUFF INHALATION DAILY February 26, 2019 12:08pm April 08, 2019 3:49pm Start: 02-26-2019 End: 04-08-2019 take 2.5 ug by inhalation once daily Tiotropium [place] (Spiriva Respimat) 2.5 mcg/actuation mist Discontinued 2 NMA INHALATION DAILY 4 February 26, 2019 1:00am April 08, 2019 3:49pm Start: 02-26-2019 End: 04-08-2019 take 2.5 ug by inhalation once daily Tiotropium [place] (Spiriva Respimat) 2.5 mcg/actuation mist Discontinued 2 NMA INHALATION DAILY February 26, 2019 1:00am April 08, 2019 3:49pm Start: 02-26-2019 End: 04-08-2019 take 1 puff(s) by inhalation once daily Tiotropium [place] (Spiriva Respimat) 2.5 mcg/actuation mist Discontinued 2 PUFF INHALATION DAILY February 26, 2019 12:00am April 08, 2019 2:49pm Start: 02-26-2019 End: 04-08-2019 take 1 puff(s) by inhalation once daily Tiotropium [place] (Spiriva Respimat) 2.5 mcg/actuation mist Discontinued 2 [...] tablet Discontinued 0 .ROUTE .COMPLEX 90 November 08, 2022 11:11pm November 28, 2023 [...] Coronary arteriosclerosis; Translations: [Atherosclerotic heart disease of [place] coronary artery without angina pectoris] Onset: 5 [...] neoplasm of colon] Onset: 9 07-09-2009 Episodic Other upper respiratory infections (7 sources) Upper respiratory infection; Translations: [Acute upper respiratory infection, unspecified] 11-05-2023 Episodic Residual codes; unclassified (14 sources) History [...] 5.0 mm X 32 mm Evero limus-eluding [place] chromium stent to mid RCA, and 4.0 mm X 19 mm polytetrafluoroethylene-covered stent (to seal coronary artery perforation site) Char-; endo-; and myocarditis; cardiomyopathy (except that caused by tuberculosis or sexually transmitted disease) (15 sources) Pericardial effusion; Translations: [Cardiac tamponade] Onset: 07-29-2018 07-09-2019 Episodic Residual codes; unclassified (14 sources) History of cardiovascular surgery; Translations: [Other specified postprocedural states] Onset: 08-01-2018 10-10-2018 Episodic Results Test Name Value Interpretation Reference Range Facility Gram Stainon 01-08-2025 GS Results left VM is s aliva sample 01/08/25-1121 by BLUCAS Acceptable Specimen? No (>25 Epithelial cells per/lpf) Gram Stain 2+ Gram positive cocci 2+ Epithelial cells Rare White Blood Cells 1+ Gram positive rods Specimen is mostly saliva and as such may not represent an accurate assesment of the patients' pulmonary/respiratory condition. Normal [facility] Comment on above: Performed By: #### M 100.2400, M100.1999 #### [facility] [address] [place], [address] Respiratory Cultureon 2024 RESPC Results left VM is s aliva sample 01/08/25-1122 by BLUCAS Test not performed Normal [facility] Comment on above: Performed By: #### M 100.2400, M100.1999 #### [facility] [address] [place], [address] Pulmonary Visit Reporton Pulmonary Visit Report [facility] [address] [place] [address] OFFICE VISIT Date of Service: 01/07/25 MR#: [id number] Acct: [id number] Name: ALVINANITA CANALESE Rep #: [id number] : 1950 Provider: LEONIDAS Hester Age/Sex: 74/M [place] [facility] [place] Status: Signed Assessment and Plan Assessment and Plan (1) Stage 3 severe COPD by GOLD classification: Status: Chronic Plan: Unclear if he is in an exacerbation of COPD today. Sputum requested for culture and sensitivity. Continue triple therapy, on Breztri. Contact the office for any new or worsening symptoms. An acute visit and typically be arranged within 1-2 days. Sputum results will be discussed by phone once available. If indicated, antibiotics will be ordered. Follow-up in 6 months. (2) Smoking greater than 40 pack years: Status: Chronic Plan: He remains appropriate for repeat LDCT which is due in December 2025, ordered accordingly. Encourage complete smoking cessation, he still smokes marijuana. (3) Chronic hypoxic respiratory failure: Status: Chronic Comment: 2 LPM at rest, 4 LPM on exertion Plan: He is using and benefitting from supplemental oxygen. He is to titrate oxygen as needed to keep saturations 89-92%.Follow up in 6 months. Orders: Orders Culture, Sputum Today J44.9 - Chronic obstructive pulmonary disease, unspecified Low Dose CT Lung Screening 12/16/25 F17.210 - Nicotine dependence, cigarettes, uncomplicated Plan Details Additional Comments: This note was generated with [employer] dictation software. It may contain incorrect words, spelling, and punctuation that were not noted in checking the note before signing. 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 He is ambulatory. He has not recently [...] throat or thrush. He is currently using h is albuterol rescue inhaler several times daily. He is compliant with Singulair daily. He is using Mucinex twice daily. Today he denies any difficulty with shortness of breath. He has a cough that is productive of thick clear-colored sputum. However, first thing in the morning he reports that it is productive of brown sputum with blood in it, then gets yellow and then it gets clear in the day". He denies any wheezing, chest tightness or palpitations. He has not had any fever, chills or body aches. Test results personally viewed with the patient: Low-dose CT lung screening completed on December 25, 2024. No suspicious nodules seen. Recommendation is to continue LDCT in 12 months. 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: [employer] Accompanied by: Self Is patient in pain?: No Allergies No Known Allergies Allergy (Verified 01/07/25 10:25) Medications ???Medication ???Instructions ???Recorded ???Confirmed ???Type aspirin 81 mg tablet,delayed 81 mg PO DAILY 08/06/18 01/07/25 H istory release (Adult Aspirin Regimen) acetaminophen 500 mg capsule 500 mg PO Q6H PRN pain #30 caps 01/07/25 Rx multivitamin (One Daily 1 tab PO DAILY 06/23/21 01/07/25 H istory Multivitamin tablet) diazepam 2 mg tablet 2 mg PO TID PRN PRN Vertigo #10 01/07/25 Rx TABLETS Disability Placard #1 ea 03/16/23 01/07/25 Rx furosemide 40 mg tablet 40 mg PO DAILY #90 tabs 04/04/23 0 01/07/25 Rx Held on 08/22/23. Instructions: blurred vision trazodone 50 mg tablet See Rx Instructions .Route 4 01/07/25 Rx .COMPLEX #90 tabs isosorbide mononitrate 30 mg 15 mg (1/2 x 30 mg) PO DAILY #45 0 01/08/24 01/07/25 Rx tablet,extended release 24 hr tabs gabapentin 400 mg capsule 400 mg PO TID #90 caps 02/19/24 Rx omeprazole 20 mg capsule,delayed 20 mg PO DAILY #90 caps 02/19/24 0 01/07/25 Rx release montelukast 10 mg tablet 10 mg PO QPM #90 tabs (more content not included)... Normal [facility] Dose CT Lung Screeningon 12-25-[address] Lung Screening [facility] Imaging Services [address] [place] [address] Lung Screening MR#: [id number] Acct: [id number] Name: ANITA GUZMAN Rep #: [id number] : 1950 M 74 From: Earl borrego MD PCP: Dr. Sharon Osorio MD Status: REG CLI Study: Low Dose CT Lung Screening Date of Exam: 12/25 Exam# [id number] Ordering Dr: Sharon Hester NP GM VIDEO-C PROCEDURE: LOW DOSE CT LUNG SCREENING 12/25/2024 [...] use of iterative reconstruction technique). REFERENCE LINK: [employer] Lung-RADS RADIATION DOSE SUMMARY: CTDlvol: 2.01 mGy [...] SCREENING LDCT. Other Significant Findings: Reading Location: [id number] CC: GM VIDEO-Jacqui Hester; Dr. Sharon Osorio MD Machine Fastener: Signed Normal [facility] Cardiovascular stress test r eportOrdered By: Weston Mccarthy on 12-16-2024 Study report [facility] Cardiovascular Services [address] [place] [address] MR#: [id number] Acct: [id number] Name: ANITA GUZMAN Rep #: [id number] : 1950 74 From: Weston Mccarthy MD [...] myocardial perfusion stress test. Preserved ejection fraction. 12/16/24 1427 Date _ Weston Mccarthy MD CC: Dr. Sharon Osorio MD ~ Date Dictated: 12/16/241425 Date Transcribed: 12/16/241425 Machine Fastener: CO Signed [facility] Work Phone: Stress Reporton 12-16-2024 Stress Report [facility] Cardiovascular Services [address] [place] [address] MR#: [id number] Acct: [id number] Name: ANITA GUZMAN Rep #: [id number] : 1950 74 From: Weston Mccarthy MD [...] MD Date Dictated: 12/16/241425 Date Transcribed: 12/16/241425 Machine Fastener: CO Signed Normal [facility] Electrocardiogram reportOrde red By: Weston Mccarthy on 12-04-2024 EKG study [facility] Cardiovascular Services [address] [place] [address] 12 Lead EKG 12/03/24 1253 MR#: [id number] Acct: [id number] Name: ANITA GUZMAN Rep #:[id number] : 1950 74 From: Weston Mccarthy MD Attending Dr: Dr. Sharon Osorio MD Status: REG I Ordering Dr: Sharon Osorio MD Date: 12/03/24 Location: [facility] Sex: M C Admitted: Test Reason : CHEST PAIN Blood Pressure : */* mmHG Vent. Rate : 75 BPM Atrial Rate : 75 BPM P-R Int : 98 ms QRS Dur : 130 ms QT Int : 396 ms P-R-T Axes : 57 41 57 degrees QTcB Int : 442 ms Sinus rhythm with short MD Right bundle branch block Abnormal ECG Confirmed by FABIO MARTINEZ, WESTON ([id number]), story editor ADAN MOSS ([id number]) on 12/04/2024 9:34:41 AM Referred By: Sharon Osorio Confirmed By: WESTON MCCARTHY MD 12/04/24 0934 Date _ Weston Mccarthy MD CC: Dr. Sharon Osorio MD ~ Signed [facility] Other Phone: 12 Lead EKGon 12-03-2024 12 Lead EKG [facility] Cardiovascular Services [address] [place] [address] 12 Lead EKG 12/03/24 1253 MR#: [id number] Acct: [id number] Name: ANITA GUZMAN Rep #: [id number] : 1950 74 From: Weston Mccarthy MD Attending Dr: Dr. Sharon Osorio MD Status: REG CLI Ordering Dr: Sharon Osorio MD Date: 12/03/24 Location: [facility] Sex: M C Admitted: Test Reason : CHEST PAIN Blood Pressure : */* mmHG Vent. Rate : 75 BPM Atrial Rate : 75 BPM P-R Int : 98 ms QRS Dur : 130 ms QT Int : 396 ms P-R-T Axes : 57 41 57 degrees QTcB Int : 442 ms Sinus rhythm with short MD Right bundle branch block Abnormal ECG Confirmed by FABIO MARTINEZ, WESTON ([id number]), story editor ADAN MOSS ([id number]) on 12/04/2024 9:34:41 AM Referred By: Sharon Osorio Confirmed By: WESTON MCCARTHY MD 12/04/24 0934 Date Weston Mccarthy MD CC: Dr. Sharon Osorio MD Signed Normal [facility] Pulmonary Visit Reporton Pulmonary Visit Report [facility] Pulmonary Medicine of [address] [place] [address] OFFICE VISIT Date of Service: 11/26/24 MR#: [id number] Acct: [id number] Name: ANITA GUZMAN Rep #: [id number] : 1950 Provider: LEONIDAS Hester Age/Sex: 74/M [place] [facility] Status: Signed Assessment and Plan Assessment and [...] Follow up in 6 weeks. Medications: New ghclbaawte-jswsxgsq-cgnze terol 160-9-4.8 mcg/actuation (Breztri Aerosphere) 2 inhalations inhalation BID 10.7 grams 6RF Discontinued romvkatcmdm-oiueqtxka-flk anter 200-62.5-25 mcg (Trelegy Ellipta) Discontinued Reason: Order Changed 1 inh inhalation DAILY 60 ea 2RF Plan Details Additional Comments: This note was generated with [employer] dictation software. It may contain incorrect words, [...] M FU Chief Complaint: congest, DALY, cough Film Processing Utility Worker Required: No DME Vendor: [employer] Accompanied by: Self Is patient in pain?: [...] 11/26/24 Rx (more content not included)... Normal [facility] Absolute lymphocyte countOrd ered By: Sharon Osorio on 11-14-2024 Lymphocytes Auto (Unsp spec) [#/Vol] 0.86 10*3/uL 0.83-4.51 [facility] Absolute neutrophil countOrd ered By: Sharon Osorio on 11-14-2024 Neutrophils (Bld) [#/Vol] 7.2 10*3/uL 2.0-7.7 [facility] Anion gap in Serum or Plasma Ordered By: Sharon Osorio on 11-14-2024 Anion gap [Moles/Vol] 12 mmol/L 5-15 [facility] Automated lymphocyte count a s percentage of total leukocytesOrdered By: Sharon Osorio on 11-14-2024 Lymphocytes/100 WBC Auto (Unsp spec) 9.4 % Low 19-41 [facility] BUN/creatinine ratioOrdered By: eriknew bostoncody Osorio on 11-14-2024 Urea nitrogen/Creatinine [Mass ratio] 17.0 mg/mg 10-20 [facility] Basophil percentageOrdered B y: Sharon Osorio on 11-14-2024 Basophils/100 WBC (Bld) 0.5 % 0-1 [facility] Bilirubin, totalOrdered By: Sharon Osorio on 11-14-2024 Bilirubin [Mass/Vol] 0.58 mg/dL 0.00-1.30 [facility] CBC W/Diff, Automatedon 10-17 Absolute Lymph 0.86 X10 3/uL Normal 0.83-4.51 [facility] Comment on above: Performed By: #### L 500.4050, L100.0100, L501.9985 #### [facility] [address], [address] Absolute Neut 7.2 X10 3/uL Normal 2.0-7.7 [facility] Comment on above: Performed By: #### L 500.4050, L100.0100, L501.9985 #### [facility] [address], [address] Basophils/100 WBC (Bld) 0.5 % Normal 0-1 [facility] Comment on above: Performed By: #### L 500.4050, L100.0100, L501.9985 #### [facility] [address], [address] Eosinophils/100 WBC (Bld) 1.6 % Normal 0-5 [facility] Comment on above: Performed By: #### L 500.4050, L100.0100, L501.9985 #### [facility] [address], [address] Erythrocyte distribution width (RBC) [Ratio] 13.0 % Normal 11.6-14.6 [facility] Comment on above: Performed By: #### L 500.4050, L100.0100, L501.9985 #### [facility] [address], [address] Hematocrit (Bld) [Volume fraction] 46.4 % Normal 40-54 [facility] Comment on above: Performed By: #### L 500.4050, L100.0100, L501.9985 #### [facility] [address], [address] Hemoglobin (Bld) [Mass/Vol] 15.3 g/dL Normal 13.0-16.5 [facility] Comment on above: Performed By: #### L 500.4050, L100.0100, L501.9985 #### [facility] [address], [address] IG% 0.500 Normal 0.0-0.9 [facility] Comment on above: Result Comment: IG% - Immature Granulocytes (promyelocytes, myelocytes and metamyelocytes) > 1% indicates that a LEFT SHIFT is Present. Performed By: #### L 500.4050, L100.0100, L501.9985 #### [facility] [address], [address] Lymphocytes/100 WBC (Bld) 9.4 % Low 19-41 [facility] Comment on above: Performed By: #### L 500.4050, L100.0100, L501.9985 #### [facility] [address], [address] MCH (RBC) [Entitic mass] 28.8 pg Normal 27.0-32.0 [facility] Comment on above: Performed By: #### L 500.4050, L100.0100, L501.9985 #### [facility] [address], [address] MCHC (RBC) [Mass/Vol] 33.0 g/dL Normal 32-36 [facility] Comment on above: Performed By: #### L 500.4050, L100.0100, L501.9985 #### [facility] [address], [address] MCV (RBC) [Entitic vol] 87.2 fL Normal 80-94 [facility] Comment on above: Performed By: #### L 500.4050, L100.0100, L501.9985 #### [facility] [address], [address] Monocytes/100 WBC (Bld) 9.8 % Normal 0-10 [facility] Comment on above: Performed By: #### L 500.4050, L100.0100, L501.9985 #### [facility] [address], [address] Neutrophils/100 WBC (Bld) 78.2 % High 47-70 [facility] Comment on above: Performed By: #### L 500.4050, L100.0100, L501.9985 #### [facility] [address], [address] Nucleated RBC (Bld) [#/Vol] 0 10*3/uL Normal 0-5 [facility] Comment on above: Performed By: #### L 500.4050, L100.0100, L501.9985 #### [facility] [address], [address] Platelet mean volume (Bld) [Entitic vol] 10.7 fL Normal 6.2-12.0 [facility] Comment on above: Performed By: #### L 500.4050, L100.0100, L501.9985 #### [facility] [address], [address] Platelets (Bld) [#/Vol] 268 10*3/uL Normal 150-450 [facility] Comment on above: Performed By: #### L 500.4050, L100.0100, L501.9985 #### [facility] [address], [address] RBC (Bld) [#/Vol] 5.32 10*6/uL Normal 4.6-6.2 [facility] Comment on above: Performed By: #### L 500.4050, L100.0100, L501.9985 #### [facility] [address] [place], [address] RDW SD 40.5 fl Normal 35.1-43.9 [facility] Comment on above: Performed By: #### L 500.4050, L100.0100, L501.9985 #### [facility] [address], [address] WBC (Bld) [#/Vol] 9.2 10*3/uL Normal 4.4-11.0 [facility] Comment on above: Performed By: #### L 500.4050, L100.0100, L501.9985 #### [facility] [address] [place], [address] Carbon dioxide, total [Moles /volume] in Central venous bloodOrdered By: Sharon Osorio on 11-14-2024 CO2 [Moles/Vol] 20.4 mmol/L Low 21.0-32.0 [facility] Chloride assayOrdered By: Delaney Osorio on 11-14-2024 Chloride [Moles/Vol] 104 mmol/L 98-108 [facility] Comprehensive Metabolic Prof ilon 11-14-2024 Albumin [Mass/Vol] 4.3 g/dL Normal 3.4-4.8 [facility] Comment on above: Performed By: #### L 500.4050, L100.0100, L501.9985 #### [facility] [address], [address] Albumin/Globulin [Mass ratio] 1.5 {ratio} Normal 0.9-2.4 [facility] Comment on above: Performed By: #### L 500.4050, L100.0100, L501.9985 #### [facility] [address] [place], [address] ALK PHOS 85 U/L Normal 40-129 [facility] Comment on above: Performed By: #### L 500.4050, L100.0100, L501.9985 #### [facility] [address] [place], [address] ALT [Catalytic activity/Vol] 32 U/L Normal <=46 [facility] Comment on above: Performed By: #### L 500.4050, L100.0100, L501.9985 #### [facility] [address] [place], [address] AST [Catalytic activity/Vol] 37 U/L Normal <=37 [facility] Comment on above: Performed By: #### L 500.4050, L100.0100, L501.9985 #### [facility] [address] [place], [address] Bilirubin [Mass/Vol] 0.58 mg/dL Normal 0.00-1.30 [facility] Comment on above: Performed By: #### L 500.4050, L100.0100, L501.9985 #### [facility] [address] [place], [address] BUN/CRE 17.0 RATIO Normal 10-20 [facility] Comment on above: Performed By: #### L 500.4050, L100.0100, L501.9985 #### [facility] [address] [place], [address] Calcium [Mass/Vol] 9.4 mg/dL Normal 7.6-11.0 [facility] Comment on above: Performed By: #### L 500.4050, L100.0100, L501.9985 #### [facility] [address] [place], [address] Chloride [Moles/Vol] 104 mmol/L Normal 98-108 [facility] Comment on above: Performed By: #### L 500.4050, L100.0100, L501.9985 #### [facility] [address] [place], [address] CO2 [Moles/Vol] 20.4 mmol/L Low 21.0-32.0 [facility] Comment on above: Performed By: #### L 500.4050, L100.0100, L501.9985 #### [facility] [address] [place], [address] Creatinine [Mass/Vol] 1.07 mg/dL Normal 0.70-1.20 [facility] Comment on above: Performed By: #### L 500.4050, L100.0100, L501.9985 #### [facility] [address] [place], [address] GAP 12 Normal 5-15 [facility] Comment on above: Performed By: #### L 500.4050, L100.0100, L501.9985 #### [facility] [address] [place], [address] GFR/1.73 sq M.predicted among non-blacks MDRD (S/P/Bld) [Vol rate/Area] 72 mL/min/{1.73_m2} Normal >60 [facility] Comment on above: Result Comment: mL/m in/1.73m2 CKD-EPI Creatinine Equation (2020) Performed By: #### L 500.4050, L100.0100, L501.9985 #### [facility] [address] [place], [address] Globulin (S) [Mass/Vol] 2.9 g/dL Normal 2.2-4.2 [facility] Comment on above: Performed By: #### L 500.4050, L100.0100, L501.9985 #### [facility] [address], [address] Glucose [Mass/Vol] 102 mg/dL High 70-99 [facility] Comment on above: Performed By: #### L 500.4050, L100.0100, L501.9985 #### [facility] [address], [address] Potassium [Moles/Vol] 4.3 mmol/L Normal 3.3-5.1 [facility] Comment on above: Performed By: #### L 500.4050, L100.0100, L501.9985 #### [facility] [address] [place], [address] Sodium [Moles/Vol] 136 mmol/L Normal 133-145 [facility] Comment on above: Performed By: #### L 500.4050, L100.0100, L501.9985 #### [facility] [address], [address] T PROT 7.2 g/dL Normal 5.9-8.4 [facility] Comment on above: Performed By: #### L 500.4050, L100.0100, L501.9985 #### [facility] [address] [place], [address] Urea nitrogen [Mass/Vol] 18 mg/dL Normal 4-19 [facility] Comment on above: Performed By: #### L 500.4050, L100.0100, L501.9985 #### [facility] [address], [address] Eosinophil percentageOrdered By: Sharon Osorio on 11-14-2024 Eosinophils/100 WBC (Bld) 1.6 % 0-5 [facility] Erythrocyte distribution wid th ratioOrdered By: eriknew bostoncody Osorio on 11-14-2024 Erythrocyte distribution width (RBC) [Ratio] 13.0 % 11.6-14.6 [facility] Erythrocyte distribution wid th standard deviationOrdered By: eriknew bostoncody Osorio on 11-14-2024 Erythrocyte distribution width (RBC) [Ratio] 40.5 fl 35.1-43.9 [facility] Glomerular filtration rate ( GFR) estimation/1.73 sq m using serum, plasma, or whole bOrdered By: Sharon Osorio on 11-14-2024 GFR/1.73 sq M.predicted among non-blacks MDRD (S/P/Bld) [Vol rate/Area] 72 mL/min/{1.73_m2} >60 [facility] Comment on above: mL/min/1.73m2 CKD-EP I Creatinine Equation (2020) Hematocrit Auto (Bld) [Volum e fraction]Ordered By: Sharon Osorio on 11-14-2024 Hematocrit (Bld) [Volume fraction] 46.4 % 40-54 [facility] Hemoglobin A1con 11-14-2024 HbA1c (Bld) [Mass fraction] 6.0 % High <=5.6 [facility] Comment on above: Result Comment: Norm al < 5.7 % Prediabetic 5.7 - 6.4 % Diabetic >or= 6.5 % Please note range changes. Performed By: #### M 100.2400, M100.2000 #### [facility] [address] [place], [address] Hemoglobin A1c percentageOrd ered By: Sharon Osorio on 11-14-2024 HbA1c (Bld) [Mass fraction] 6.0 % High <5.7 [facility] Comment on above: Normal < 5.7 % Predi abetic 5.7 - 6.4 % Diabetic >or= 6.5 % Please note range changes. Hemoglobin measurementOrdere d By: Sharon Osorio on 11-14-2024 Hemoglobin (Bld) [Mass/Vol] 15.3 g/dL 13.0-16.5 [facility] Immature granulocytes/100 WB C Auto (Bld)Ordered By: Sharon Osorio on 11-14-2024 Immature granulocytes/100 WBC (Bld) 0.500 % 0.0-0.9 [facility] Comment on above: IG% - Immature Granu locytes (promyelocytes, myelocytes and metamyelocytes) > 1% indicates that a LEFT SHIFT is Present. Internal Medicine Office Vis itoisma 11-14-2024 Internal Medicine Office Visit [facility] [address] [place] [address] [place] [address] OFFICE VISIT Date of Service: 11/14/24 MR#: [id number] Acct: [id number] Name: ALVINANITA PEREYRA Rep #: [id number] : 1950 Provider: Dr. Sharon street MD Age/Sex: 74/M [place] [facility] Status: Signed Intake Vital Signs 05/16/24 14:25 [...] M FU Chief Complaint: FU Chronic Conditions Film Processing Utility Worker Required: No Is patient in pain?: No [...] Colon enlargement Atherosclerosis of coronary artery of [place] heart without angina pectoris Essential hypertension Cardiac [...] 11/14/24 @ (more content not included)... Normal [facility] - Chemistry and C hemistry - challengeOrdered By: Sharon Osorio on 11-14-2024 AST [Catalytic activity/Vol] 37 U/L <38 [facility] MCV (mean corpuscular volume ) determinationOrdered By: Sharon Osorio on 11-14-2024 MCV (RBC) [Entitic vol] 87.2 fL 80-94 [facility] Mean corpuscular hemoglobin (MCH) determinationOrdered By: Sharon Osorio on 11-14-2024 MCH (RBC) [Entitic mass] 28.8 pg 27.0-32.0 [facility] Mean corpuscular hemoglobin concentration (MCHC) determinationOrdered By: Sharon Osorio on 11-14-2024 MCHC (RBC) [Mass/Vol] 33.0 g/dL 32-36 [facility] Mean platelet volume determi nationOrdered By: Sharon Osorio on 11-14-2024 Platelet mean volume (Bld) [Entitic vol] 10.7 fL 6.2-12.0 [facility] Monocyte percentageOrdered B y: Sharon Osorio on 11-14-2024 Monocytes/100 WBC (Bld) 9.8 % 0-10 [facility] Neutrophil percentageOrdered By: Sharon Osorio on 11-14-2024 Neutrophils/100 WBC (Bld) 78.2 % High 47-70 [facility] Nucleated red blood cell per centageOrdered By: Sharon Osorio on 11-14-2024 Nucleated RBC/100 WBC (Bld) [Ratio] 0 % 0-5 [facility] Platelet countOrdered By: Delaney Osorio on 11-14-2024 Platelets (Bld) [#/Vol] 268 10*3/uL 150-450 [facility] Potassium measurement (mass/ volume)Ordered By: Sharon Osorio on 11-14-2024 Potassium (Unsp spec) [Mass/Vol] 4.3 mmol/L 3.3-5.1 [facility] RBC Auto (Bld) [#/Vol]Ordere d By: Sharon Osorio on 11-14-2024 RBC (Bld) [#/Vol] 5.32 10*6/uL 4.6-6.2 [facility] Serum creatinine measurement (mass/volume)Ordered By: Sharon Osorio on 11-14-2024 Creatinine [Mass/Vol] 1.07 mg/dL 0.70-1.20 [facility] Serum globulin measurementOr dered By: Sharon Osorio on 11-14-2024 Globulin (S) [Mass/Vol] 2.9 g/dL 2.2-4.2 [facility] Serum glucose measurement (m ass/volume)Ordered By: Sharon Osorio on 11-14-2024 Glucose [Mass/Vol] 102 mg/dL High 70-99 [facility] Serum or plasma alanine dominguez otransferase (ALT) measurementOrdered By: Sharon Osorio on 11-14-2024 ALT [Catalytic activity/Vol] 32 U/L <47 [facility] Serum or plasma albumin joseph urement (mass/volume)Ordered By: Sharon Osorio on 11-14-2024 Albumin [Mass/Vol] 4.3 g/dL 3.4-4.8 [facility] Serum or plasma albumin/glob ulin mass ratioOrdered By: Sharon Osorio on 11-14-2024 Albumin/Globulin [Mass ratio] 1.5 {ratio} 0.9-2.4 [facility] Serum or plasma alkaline krystal sphatase measurementOrdered By: Sharon Osorio 11-14-2024 ALP [Catalytic activity/Vol] 85 U/L 40-129 [facility] Serum or plasma calcium joseph urement (mass/volume)Ordered By: Sharon Osorio on 11-14-2024 Calcium [Mass/Vol] 9.4 mg/dL 7.6-11.0 [facility] Serum or plasma urea nitroge n measurement (mass/volume)Ordered By: Sharon Osorio on 11-14-2024 Urea nitrogen [Mass/Vol] 18 mg/dL 4-19 [facility] Sodium levelOrdered By: Jozef Osorio on 11-14-2024 Sodium [Moles/Vol] 136 mmol/L 133-145 [facility] Total proteinOrdered By: Iain Osorio on 11-14-2024 Protein [Mass/Vol] 7.2 g/dL 5.9-8.4 [facility] White blood cell (WBC) count Ordered By: Sharon Osorio on 11-14-2024 WBC (Bld) [#/Vol] 9.2 10*3/uL 4.4-11.0 [facility] 6 Minute Walk Teston 025 6 Minute Walk Test y [facility] Pulmonary Services/Neurology [address] [place] [address] MR#: [id number] Acct: [id number] Name: ANITA GUZMAN Rep #: [id number] : 1950 74 From: Elgin Trujillo DO Referring Dr: Sharon Hester GM VIDEO GM VIDEO-C Status: REG CLI Location: PSN Date: Sex: M C PSN 6 Minute Walk Test 6 Minute Walk Test 6 Minute Walk Test: 6 Minute Walk Test PSN:6-Minute Walk Test Start: 10/08/24 12:46 Freq: Status: Active Protocol: RESP.6MINW Document 10/08/24 12:46 JR (Rec: 10/08/24 12:50 JR [id number]) 6 Minute Walk Test Date Performed 10/08/24 [...] the rest of the testing. Anna Covarrubias PRODUCTION ASSISTANT Initialized on 10/08/24 12:49 - END OF [...] Dictated: 10/10/24 1007 Date Transcribed: 10/10/24 1007 Machine Fastener: Dr. Elgin Trujillo DO Signed Normal [facility] Pulmonary Visit Reporton Pulmonary Visit Report [facility] [place] 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 He is no longer smoking cigarettes but [...] Additional Comments: This note was generated with [employer] dictation software. It may contain incorrect words, [...] of breath Chief Complaint: congest, DALY, cough Film Processing Utility Worker Required: No Accompanied by: Self Allergies No [...] tabs isosorbide (more content not included)... Normal [facility] Chest PA and Lateralon 06-05 Chest PA and Lateral [facility] Imaging Services [address] [place] [address] [id number] Chest PA and Lateral MR#: [id number] Acct: [id number] Name: ANITA GUZMAN Rep #: [id number] : 1950 M 74 From: Earl borrego MD PCP: Dr. Sharon Osorio MD Status: DEP AMB Study: Chest PA and Lateral Date of Exam: 06/05/24 Exam# [id number] Ordering Dr: Sergio Ramirez GM VIDEO-C PROCEDURE: CHEST PA AND LATERAL REASON FOR [...] of the left lung base. Reading Location: [id number] CC: LEONIDAS Ramirez; Dr. Sharon Osorio MD Machine Fastener: Signed Normal [facility] No Panel InformationOrdered By: Sergio Ramirez on 06-05-2024 Influenza Types A,B Rapid (Clinic) Negative [facility] POC SARS CoV-2 Antigen Negative [facility] Urgent Care Visit Reporton 0 06-05-2024 Urgent Care Visit Report [facility] [address], [address] [place] [address] OFFICE VISIT Date of Service: 06/05/24 MR#: [id number] Acct: [id number] Name: ANITA GUZMAN Rep #: [id number] : 1950 Provider: LEONIDAS Ramirez Age/Sex: 74/M Location[place] [facility] Status: Signed Intake Vital Signs 05/16/24 14:25 [...] Reasons: CONGESTION/DALY Chief Complaint: congest, DALY, cough [employer] Processing Utility Worker Required: No Is patient in pain?: No Allergies No Known Allergies Allergy (Verified 06/05/24 08:15) Have you fallen in the past year?: No Nurse's Note: cough, congest, DALY, fatigue x 1 week worsening. hx COPD, nebs at home with minimal relief, denies O2 use. current SpO2 88% on room air, pt with very tight sounding cough. [facility] Medical History (Updated 06/05/24 @ 08:23 [...] Colon enlargement Atherosclerosis of coronary artery of [place] heart without angina pectoris Essential hypertension Cardiac [...] quit in 2008, marijuana, crack/cocaine, hallucinogens and club/interactive designer drugs caffeine: Yes Type: coffee Number [...] to have (more content not included)... Normal [facility] CBC W/Diff, Automatedon 04-19 Absolute Lymph 1.22 X10 3/uL Normal 0.83-4.51 [facility] Comment on above: Performed By: #### L 100.0100, L500.4100, L501.9910, L500.4050 #### [facility] [address], [address] Absolute Neut 7.3 X10 3/uL Normal 2.0-7.7 [facility] Comment on above: Performed By: #### L 100.0100, L500.4100, L501.9910, L500.4050 #### [facility] [address] [place], [address] Basophils/100 WBC (Bld) 0.6 % Normal 0-1 [facility] Comment on above: Performed By: #### L 100.0100, L500.4100, L501.9910, L500.4050 #### [facility] [address] [place], [address] Eosinophils/100 WBC (Bld) 2.1 % Normal 0-5 [facility] Comment on above: Performed By: #### L 100.0100, L500.4100, L501.9910, L500.4050 #### [facility] [address] [place], [address] Erythrocyte distribution width (RBC) [Ratio] 13.0 % Normal 11.6-14.6 [facility] Comment on above: Performed By: #### L 100.0100, L500.4100, L501.9910, L500.4050 #### [facility] [address] [place], [address] Hematocrit (Bld) [Volume fraction] 45.7 % Normal 40-54 [facility] Comment on above: Performed By: #### L 100.0100, L500.4100, L501.9910, L500.4050 #### [facility] [address] [place], [address] Hemoglobin (Bld) [Mass/Vol] 15.4 g/dL Normal 13.0-16.5 [facility] Comment on above: Performed By: #### L 100.0100, L500.4100, L501.9910, L500.4050 #### [facility] [address] [place], [address] IG% 0.700 Normal 0.0-0.9 [facility] Comment on above: Result Comment: IG% - Immature Granulocytes (promyelocytes, myelocytes and metamyelocytes) > 1% indicates that a LEFT SHIFT is Present. Performed By: #### L 100.0100, L500.4100, L501.9910, L500.4050 #### [facility] [address] [place], [address] Lymphocytes/100 WBC (Bld) 12.6 % Low 19-41 [facility] Comment on above: Performed By: #### L 100.0100, L500.4100, L501.9910, L500.4050 #### [facility] [address] [place], [address] MCH (RBC) [Entitic mass] 29.4 pg Normal 27.0-32.0 [facility] Comment on above: Performed By: #### L 100.0100, L500.4100, L501.9910, L500.4050 #### [facility] [address] [place], [address] MCHC (RBC) [Mass/Vol] 33.7 g/dL Normal 32-36 [facility] Comment on above: Performed By: #### L 100.0100, L500.4100, L501.9910, L500.4050 #### [facility] [address], [address] MCV (RBC) [Entitic vol] 87.2 fL Normal 80-94 [facility] Comment on above: Performed By: #### L 100.0100, L500.4100, L501.9910, L500.4050 #### [facility] [address], [address] Monocytes/100 WBC (Bld) 9.5 % Normal 0-10 [facility] Comment on above: Performed By: #### L 100.0100, L500.4100, L501.9910, L500.4050 #### [facility] [address], [address] Neutrophils/100 WBC (Bld) 74.5 % High 47-70 [facility] Comment on above: Performed By: #### L 100.0100, L500.4100, L501.9910, L500.4050 #### [facility] [address], [address] Nucleated RBC (Bld) [#/Vol] 0 10*3/uL Normal 0-5 [facility] Comment on above: Performed By: #### L 100.0100, L500.4100, L501.9910, L500.4050 #### [facility] [address], [address] Platelet mean volume (Bld) [Entitic vol] 10.6 fL Normal 6.2-12.0 [facility] Comment on above: Performed By: #### L 100.0100, L500.4100, L501.9910, L500.4050 #### [facility] [address] [place], [address] Platelets (Bld) [#/Vol] 258 10*3/uL Normal 150-450 [facility] Comment on above: Performed By: #### L 100.0100, L500.4100, L501.9910, L500.4050 #### [facility] [address] [place], [address] RBC (Bld) [#/Vol] 5.24 10*6/uL Normal 4.6-6.2 [facility] Comment on above: Performed By: #### L 100.0100, L500.4100, L501.9910, L500.4050 #### [facility] [address], [address] RDW SD 41.6 fl Normal 35.1-43.9 [facility] Comment on above: Performed By: #### L 100.0100, L500.4100, L501.9910, L500.4050 #### [facility] [address], [address] WBC (Bld) [#/Vol] 9.7 10*3/uL Normal 4.4-11.0 [facility] Comment on above: Performed By: #### L 100.0100, L500.4100, L501.9910, L500.4050 #### [facility] [address] [place], [address] Comprehensive Metabolic Prof ilon 05-16-2024 Albumin [Mass/Vol] 4.0 g/dL Normal 3.2-5.0 [facility] Comment on above: Performed By: #### L 100.0100, L500.4100, L501.9910, L500.4050 #### [facility] [address], [address] Albumin/Globulin [Mass ratio] 1.1 {ratio} Normal 0.9-2.4 [facility] Comment on above: Performed By: #### L 100.0100, L500.4100, L501.9910, L500.4050 #### [facility] [address], [address] ALK P 72 U/L Normal 45-117 [facility] Comment on above: Performed By: #### L 100.0100, L500.4100, L501.9910, L500.4050 #### [facility] [address] [place], [address] ALT [Catalytic activity/Vol] 39 U/L Normal 16-61 [facility] Comment on above: Performed By: #### L 100.0100, L500.4100, L501.9910, L500.4050 #### [facility] [address] [place], [address] AST [Catalytic activity/Vol] 30 U/L Normal 15-37 [facility] Comment on above: Performed By: #### L 100.0100, L500.4100, L501.9910, L500.4050 #### [facility] [address] [place], [address] Bilirubin [Mass/Vol] 0.80 mg/dL Normal 0.20-1.00 [facility] Comment on above: Result Comment: For patients on eltrombopag therapy, use of Dimension [place] TBIL is not recommended. Performed By: #### L 100.0100, L500.4100, L501.9910, L500.4050 #### [facility] [address] [place], [address] BUN/CRE 11.2 RATIO Normal 10-20 [facility] Comment on above: Performed By: #### L 100.0100, L500.4100, L501.9910, L500.4050 #### [facility] [address] [place], [address] CA,Total 9.4 mg/dL Normal 8.5-10.1 [facility] Comment on above: Performed By: #### L 100.0100, L500.4100, L501.9910, L500.4050 #### [facility] [address] [place], [address] Chloride [Moles/Vol] 108 mmol/L High 98-107 [facility] Comment on above: Performed By: #### L 100.0100, L500.4100, L501.9910, L500.4050 #### [facility] [address] [place], [address] CO2 [Moles/Vol] 25.0 mmol/L Normal 21.0-32.0 [facility] Comment on above: Performed By: #### L 100.0100, L500.4100, L501.9910, L500.4050 #### [facility] [address] [place], [address] Creatinine [Mass/Vol] 1.07 mg/dL Normal 0.70-1.30 [facility] Comment on above: Result Comment: The validity of the calculated GFR GFRAA in patients over 70 years has not been determined. Clinical correlation is essential. Performed By: #### L 100.0100, L500.4100, L501.9910, L500.4050 #### [facility] [address] [place], [address] EST GFR - AA 87 mL/min Normal >60 [facility] Comment on above: Result Comment: Afri can Ukrainian GFR Calc Performed By: #### L 100.0100, L500.4100, L501.9910, L500.4050 #### [facility] [address] [place], [address] GAP 6 Normal 5-15 [facility] Comment on above: Performed By: #### L 100.0100, L500.4100, L501.9910, L500.4050 #### [facility] [address], [address] GFR/1.73 sq M.predicted among non-blacks MDRD (S/P/Bld) [Vol rate/Area] 72 mL/min/{1.73_m2} Normal >60 [facility] Comment on above: Result Comment: Non- GFR Calc Performed By: #### L 100.0100, L500.4100, L501.9910, L500.4050 #### [facility] [address] [place], [address] Globulin (S) [Mass/Vol] 3.7 g/dL Normal 2.2-4.2 [facility] Comment on above: Performed By: #### L 100.0100, L500.4100, L501.9910, L500.4050 #### [facility] [address], [address] Glucose [Mass/Vol] 120 mg/dL High 74-106 [facility] Comment on above: Result Comment: Fast ing Glucose result from 100 to 125 mg/dL suggests IMPAIRED HOMEOSTASIS per A.D.A. criteria. Performed By: #### L 100.0100, L500.4100, L501.9910, L500.4050 #### [facility] [address] [place], [address] Potassium [Moles/Vol] 4.0 mmol/L Normal 3.5-5.1 [facility] Comment on above: Performed By: #### L 100.0100, L500.4100, L501.9910, L500.4050 #### [facility] [address] [place], [address] Sodium [Moles/Vol] 139 mmol/L Normal 136-145 [facility] Comment on above: Performed By: #### L 100.0100, L500.4100, L501.9910, L500.4050 #### [facility] [address] [place], [address] T PROT 7.7 g/dL Normal 6.4-8.2 [facility] Comment on above: Performed By: #### L 100.0100, L500.4100, L501.9910, L500.4050 #### [facility] [address] [place], [address] Urea nitrogen [Mass/Vol] 12 mg/dL Normal 7-18 [facility] Comment on above: Performed By: #### L 100.0100, L500.4100, L501.9910, L500.4050 #### [facility] [address] [place], [address] Internal Medicine Office Vis neeru 05-16-2024 Internal Medicine Office Visit [facility] [address] [place] [address] [place] [address] OFFICE VISIT Date of Service: 05/16/24 MR#: [id number] Acct: [id number] Name: ANITA GUZMAN Rep #: [id number] : 1950 Provider: Dr. 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 Normal [facility] Lipid Profileon 05-16-2024 Cholesterol [Mass/Vol] 148 mg/dL Normal 200 [facility] Comment on above: Result Comment: <200 mg/dL Desirable 200-240 mg/dL Borderline >240 mg/dL High Risk Performed By: #### L 100.0100, L500.4100, L501.9910, L500.4050 #### [facility] [address] [place], [address] Cholesterol in HDL [Mass/Vol] 60 mg/dL Normal [facility] Comment on above: Result Comment: The drugs N-Acetylcysteine and Metamizole may falsely depress this assay. Reference Range HDL <40 mg/dL Low HDL Cholesterol HDL >or= 60 mg/dL High HDL Cholesterol Performed By: #### L 100.0100, L500.4100, L501.9910, L500.4050 #### [facility] [address] [place], [address] Cholesterol in LDL [Mass/Vol] 53 mg/dL Normal 0-130 [facility] Comment on above: Performed By: #### L 100.0100, L500.4100, L501.9910, L500.4050 #### [facility] [address], [address] Cholesterol in VLDL [Mass/Vol] 35 mg/dL Normal 5-40 [facility] Comment on above: Performed By: #### L 100.0100, L500.4100, L501.9910, L500.4050 #### [facility] [address] [place], [address] Triglyceride [Mass/Vol] 175 mg/dL Normal [facility] Comment on above: Result Comment: The drugs N-Acetylcysteine and Metamizole may falsely depress this assay. Serum Triglycerides Reference Interval Normal <150 mg/dL Borderline high 150 - 199 mg/dL High 200 - 499 mg/dL Very High > or = 500 mg/dL Performed By: #### L 100.0100, L500.4100, L501.9910, L500.4050 #### [facility] [address] [place], [address] PSA,Total - Annual Screenon 05-16-2024 PSA,TOT SCREEN 1.83 ng/mL Normal 0.00-4.00 [facility] Comment on above: Result Comment: This test was performed using the TPSA assay method for the [employer] chemistry system. Values obtained with different assay methods cannot be used interchangably. When changing PSA assays in the course of monitoring a patient, additional sequential testing should be carried out to confirm baseline values. Performed By: #### L 100.0100, L500.4100, L501.9910, L500.4050 #### [facility] [address] [place], [address] Absolute lymphocyte countOrd ered By: Sharon Osorio on 04-20-2023 Lymphocytes Auto (Unsp spec) [#/Vol] 1.98 10*3/uL 0.83-4.51 [facility] Basophil percentageOrdered B y: Sharon Osorio on 04-20-2023 Basophils/100 WBC (Bld) 0.5 % 0-1 [facility] Bilirubin [Mass/Vol] 0.70 mg/dL 0.20-1.00 [facility] Comment on above: For patients on eltr ombopag therapy, use of Dimension [place] TBIL is not recommended. Chloride [Moles/Vol] 105 mmol/L 98-107 [facility] Cholesterol [Mass/Vol] 152 mg/dL <200 [facility] Comment on above: <200 mg/dL Desirable 200-240 mg/dL Borderline >240 mg/dL High Risk Eosinophils/100 WBC (Bld) 1.9 % 0-5 [facility] Glucose [Mass/Vol] 132 mg/dL 74-106 [facility] Comment on above: Fasting Glucose resu lt greater than or equal to 126 mg/dL suggests DIABETES MELLITUS per A.D.A. criteria. Neutrophils (Bld) [#/Vol] 7.5 10*3/uL 2.0-7.7 [facility] Neutrophils/100 WBC (Bld) 69.3 % 47-70 [facility] Potassium [Moles/Vol] 3.6 mmol/L 3.5-5.1 [facility] Protein [Mass/Vol] 7.9 g/dL 6.4-8.2 [facility] Sodium [Moles/Vol] 138 mmol/L 136-145 [facility] Triglyceride [Mass/Vol] 122 mg/dL <199 [facility] Comment on above: The drugs N-Acetylcy steine and Metamizole may falsely depress this assay.Serum Triglycerides Reference Interval Normal <150 mg/dL Borderline high 150 - 199 mg/dL High 200 - 499 mg/dL Very High > or = 500 mg/dL WBC (Bld) [#/Vol] 10.8 10*3/uL 4.4-11.0 [facility] Blood erythrocytes count (nu mber/volume)Ordered By: Sharon Osorio on 04-20-2023 RBC (Bld) [#/Vol] 5.39 10*6/uL 4.6-6.2 [facility] Blood hemoglobin measurement (mass/volume)Ordered By: Sharon Osorio on 04-20-2023 Hemoglobin (Bld) [Mass/Vol] 16.2 g/dL 13.0-16.5 [facility] Blood lymphocytes/100 leukoc ytesOrdered By: Sharon Osorio on 04-20-2023 Lymphocytes/100 WBC (Bld) 18.4 % 19-41 [facility] Blood monocytes/100 leukocyt esOrdered By: Sharon Osorio on 04-20-2023 Monocytes/100 WBC (Bld) 9.3 % 0-10 [facility] Blood platelet mean volumeOr dered By: Sharon Osorio on 04-20-2023 Platelet mean volume (Bld) [Entitic vol] 10.3 fL 6.2-12.0 [facility] Determination of erythrocyte mean corpuscular volume (MCV)Ordered By: Sharon Osorio on 04-20-2023 MCV (RBC) [Entitic vol] 88.9 fL 80-94 [facility] Hematocrit Auto (Bld) [Volum e fraction]Ordered [facility]: [facility] on 04-20-2023 Hematocrit (Bld) [Volume fraction] 47.9 % 40-54 [facility] - Chemistry and C hemistry - challengeOrdered By: [facility] on 04-20-2023 ALP [Catalytic activity/Vol] 75 U/L 45-117 [facility] ALT [Catalytic activity/Vol] 42 U/L 16-61 [facility] CO2 [Moles/Vol] 25.0 mmol/L 21.0-32.0 [facility] Globulin (S) [Mass/Vol] 3.8 g/dL 2.2-4.2 [facility] Urea nitrogen/Creatinine [Mass ratio] 13.6 mg/mg 10-20 [facility] - Hematology and Cell countsOrdered By: [facility] on 04-20-2023 Erythrocyte distribution width (RBC) [Entitic vol] 41.0 fL 35.1-43.9 [facility] Erythrocyte distribution width (RBC) [Ratio] 12.7 % 11.6-14.6 [facility] Immature granulocytes/100 WBC (Bld) 0.600 % 0.0-0.9 [facility] Comment on above: IG% - Immature Granu locytes (promyelocytes, myelocytes and metamyelocytes) > 1% indicates that a LEFT SHIFT is Present. MCH (RBC) [Entitic mass] 30.1 pg 27.0-32.0 [facility] Nucleated RBC/100 WBC (Bld) [Ratio] 0 % 0-5 [facility] MCHC Auto (RBC) [Mass/Vol]Or dered By: Sharon Osorio on 04-20-2023 MCHC (RBC) [Mass/Vol] 33.8 g/dL 32-36 [facility] No Panel InformationOrdered By: Sharon Osorio on 04-20-2023 Estimated GFR (MDRD) Amer 78 mL/min >60 [facility] Comment on above: GFR Calc Estimated GFR (MDRD) Non-Af Amer 64 mL/min >60 [facility] Comment on above: Non- GFR Calc Prostate Specific Antigen Screen 1.61 ng/mL 0.00-4.00 [facility] Comment on above: This test was perfor med using the TPSA assay method for [employer] chemistry system. Values obtained with differentassay methods cannot be used interchangably.When changing PSA assays in the course of monitoring apatient, additional sequential testing should be carriedout to confirm baseline values. Thyroid Stimulating Hormone (TSH) 3.15 uIU/mL 0.358-3.74 [facility] Platelets bldOrdered By: Iain Osorio on 04-20-2023 Platelets (Bld) [#/Vol] 284 10*3/uL 150-450 [facility] Serum or plasma albumin joseph urement (mass/volume)Ordered By: Sharon Osorio on 04-20-2023 Albumin [Mass/Vol] 4.1 g/dL 3.2-5.0 [facility] Serum or plasma albumin/glob ulin mass ratioOrdered By: Sharon Osorio on 04-20-2023 Albumin/Globulin [Mass ratio] 1.1 {ratio} 0.9-2.4 [facility] Serum or plasma calcium joseph urement (mass/volume)Ordered By: Sharon Osorio on 04-20-2023 Calcium [Mass/Vol] 8.9 mg/dL 8.5-10.1 [facility] Serum or plasma cholesterol in HDL measurement (mass/volume)Ordered By: Sharon Osorio on 04-20-2023 Cholesterol in HDL [Mass/Vol] 53 mg/dL >40 [facility] Comment on above: The drugs N-Acetylcy steine and Metamizole may falsely depress this assay. Reference Range HDL <40 mg/dL Low HDL Cholesterol HDL >or= 60 mg/dL High HDL Cholesterol Serum or plasma cholesterol in VLDL measurement (mass/volume)Ordered By: Sharon Osorio on 04-20-2023 Cholesterol in VLDL [Mass/Vol] 24 mg/dL 5-40 [facility] Serum or plasma creatinine m easurement (mass/volume)Ordered By: Sharon Osorio on 04-20-2023 Creatinine [Mass/Vol] 1.18 mg/dL 0.70-1.30 [facility] Comment on above: The validity of the calculated GFR & GFRAA in patients over 70 years has not been determined. Clinical correlation is essential. Serum or plasma low density lipoprotein (LDL) cholesterol measurement (mass/volume)Ordered By: Sharon Osorio on 04-20-2023 Cholesterol in LDL [Mass/Vol] 75 mg/dL 0-130 [facility] Serum or plasma urea nitroge n measurement (mass/volume)Ordered By: Sharon Osorio on 04-20-2023 Urea nitrogen [Mass/Vol] 16 mg/dL 7-18 [facility] Thin prep Papanicolaou smear with manual screeningOrdered By: roslyn Osorio on 04-20-2023 Thin prep Papanicolaou smear with manual screening 31 U/L 15-37 [facility] Thin prep Papanicolaou smear with manual screening 8 5-15 [facility] Gram stain for investigation of transfusion reactionOrdered By: Sharon Hester on 12-12-2022 Microscopic observation Gram stain Nom (Unsp spec) [facility] Absolute lymphocyte counton 03-12-2022 Lymphocytes Auto (Unsp spec) [#/Vol] 1.05 10*3/uL 0.83-4.51 [facility] Work Phone: Basophil percentageon 2021 Basophils/100 WBC (Bld) 0.5 % 0-1 [facility] Work Phone: Chloride [Moles/Vol] 112 mmol/L 98-107 [facility] Work Phone: Eosinophils/100 WBC (Bld) 1.8 % 0-5 [facility] Work Phone: Glucose [Mass/Vol] 115 mg/dL 74-106 [facility] Work Phone: [phone] Comment on above: Fasting Glucose resu lt from 100 to 125 mg/dL suggests IMPAIRED HOMEOSTASIS per A.D.A. criteria. Neutrophils (Bld) [#/Vol] 5.8 10*3/uL 2.0-7.7 [facility] Work Phone: Neutrophils/100 WBC (Bld) 73.2 % 47-70 [facility] Work Phone: [phone] Potassium [Moles/Vol] 4.2 mmol/L 3.5-5.1 [facility] Work Phone: Sodium [Moles/Vol] 141 mmol/L 136-145 [facility] Work Phone: WBC (Bld) [#/Vol] 7.9 10*3/uL 4.4-11.0 [facility] Work Phone: Blood erythrocytes count (nu mber/volume)on 03-12-2022 RBC (Bld) [#/Vol] 4.68 10*6/uL 4.6-6.2 [facility] Work Phone: [phone] Blood hemoglobin measurement (mass/volume)on 03-12-2022 Hemoglobin (Bld) [Mass/Vol] 14.4 g/dL 13.0-16.5 [facility] Work Phone: Blood lymphocytes/100 leukoc yteson 03-12-2022 Lymphocytes/100 WBC (Bld) 13.4 % 19-41 [facility] Work Phone: [phone] Blood monocytes/100 leukocyt eson 03-12-2022 Monocytes/100 WBC (Bld) 10.6 % 0-10 [facility] Work Phone: Blood platelet mean volumeon 03-12-2022 Platelet mean volume (Bld) [Entitic vol] 9.9 fL 6.2-12.0 [facility] Work Phone: Determination of erythrocyte mean corpuscular volume (MCV)on 03-12-2022 MCV (RBC) [Entitic vol] 92.1 fL 80-94 [facility] Work Phone: Hematocrit Auto (Bld) [Volum e fraction]on 03-12-2022 Hematocrit (Bld) [Volume fraction] 43.1 % 40-54 [facility] Work Phone: INR in Blood by Coagulation assayon 03-12-2022 INR Coag (Bld) [Relative time] 1.1 {INR} [facility] Work Phone: Laboratory - Chemistry and C hemistry - challengeon 03-12-2022 CO2 [Moles/Vol] 23.0 mmol/L 21.0-32.0 [facility] Work Phone: Urea nitrogen/Creatinine [Mass ratio] 28.2 mg/mg 10-20 [facility] Work Phone: Laboratory - Coagulationon 1 05-12-2021 aPTT Coag (Bld) [Time] 29.0 s 24.1-36.2 [facility] Work Phone: PT Coag (PPP) [Time] 14.1 s 11.7-14.9 [facility] Work Phone: Laboratory - Hematology and Cell countson 03-12-2022 Erythrocyte distribution width (RBC) [Entitic vol] 46.4 fL 35.1-43.9 [facility] Work Phone: Erythrocyte distribution width (RBC) [Ratio] 13.7 % 11.6-14.6 [facility] Work Phone: Immature granulocytes/100 WBC (Bld) 0.500 % 0.0-0.9 [facility] [facility] Work Phone: Comment on above: IG% - Immature Granu locytes (promyelocytes, myelocytes and metamyelocytes) > 1% indicates that a LEFT SHIFT is Present. MCH (RBC) [Entitic mass] 30.8 pg 27.0-32.0 [facility] Work Phone: Nucleated RBC/100 WBC (Bld) [Ratio] 0 % 0-5 [facility] Work Phone: MCHC Auto (RBC) [Mass/Vol]on 03-12-2022 MCHC (RBC) [Mass/Vol] 33.4 g/dL 32-36 [facility] Work Phone: No Panel Informationon 03-12 Estimated Creatinine Clearance Calc 69.18 ml/min [facility] Work Phone: Estimated GFR (MDRD) Amer 103 mL/min >60 [facility] Work Phone: Comment on above: GFR Calc Estimated GFR (MDRD) Non-Af Amer 86 mL/min >60 [facility] Work Phone: Comment on above: Non- GFR Calc Troponin I High Sensitivity 12 pg/mL 3.0-78.0 [facility] Work Phone: Comment on above: Please Note: New Jennifer t Units and Gender Specific Reference Ranges. For more information see Policy Stat Procedure [place] High Sensitivity Troponin (TNIH) and attachments. Platelets bldon 03-12-2022 Platelets (Bld) [#/Vol] 224 10*3/uL 150-450 [facility] Work Phone: Serum or plasma calcium joseph urement (mass/volume)on 03-12-2022 Calcium [Mass/Vol] 9.3 mg/dL 8.5-10.1 [facility] Work Phone: Serum or plasma creatinine m easurement (mass/volume)on 03-12-2022 Creatinine [Mass/Vol] 0.92 mg/dL 0.70-1.30 [facility] Work Phone: Comment on above: The validity of the calculated GFR & GFRAA in patients over 70 years has not been determined. Clinical correlation is essential. Serum or plasma urea nitroge n measurement (mass/volume)on 03-12-2022 Urea nitrogen [Mass/Vol] 26 mg/dL 7-18 [facility] Work Phone: Thin prep Papanicolaou smear with manual screeningon 03-12-2022 Thin prep Papanicolaou smear with manual screening 6 5-15 [facility] Work Phone: Absolute lymphocyte counton 03-01-2022 Lymphocytes Auto (Unsp spec) [#/Vol] 1.15 10*3/uL 0.83-4.51 [facility] Work Phone: Basophil percentageon 2021 Basophils/100 WBC (Bld) 0.5 % 0-1 [facility] Work Phone: Bilirubin [Mass/Vol] 0.70 mg/dL 0.20-1.00 [facility] Work Phone: Comment on above: For patients on eltr ombopag therapy, use of Dimension [place] TBIL is not recommended. Chloride [Moles/Vol] 105 mmol/L 98-107 [facility] Work Phone: Cholesterol [Mass/Vol] 144 mg/dL <200 [facility] Work Phone: Comment on above: <200 mg/dL Desirable 200-240 mg/dL Borderline >240 mg/dL High Risk Eosinophils/100 WBC (Bld) 2.1 % 0-5 [facility] Work Phone: [phone] Glucose [Mass/Vol] 106 mg/dL 74-106 [facility] Work Phone: Comment on above: Fasting Glucose resu lt from 100 to 125 mg/dL suggests IMPAIRED HOMEOSTASIS per A.D.A. criteria. Neutrophils (Bld) [#/Vol] 6.4 10*3/uL 2.0-7.7 [facility] Work Phone: Neutrophils/100 WBC (Bld) 72.2 % 47-70 [facility] Work Phone: Potassium [Moles/Vol] 3.9 mmol/L 3.5-5.1 [facility] Work Phone: Protein [Mass/Vol] 8.0 g/dL 6.4-8.2 [facility] Work Phone: Sodium [Moles/Vol] 137 mmol/L 136-145 [facility] Work Phone: Triglyceride [Mass/Vol] 115 mg/dL <199 [facility] Work Phone: Comment on above: The drugs N-Acetylcy steine and Metamizole may falsely depress this assay.Serum Triglycerides Reference Interval Normal <150 mg/dL Borderline high 150 - 199 mg/dL High 200 - 499 mg/dL Very High > or = 500 mg/dL WBC (Bld) [#/Vol] 8.9 10*3/uL 4.4-11.0 [facility] Work Phone: Blood erythrocytes count (nu mber/volume)on 03-01-2022 RBC (Bld) [#/Vol] 5.10 10*6/uL 4.6-6.2 [facility] Work Phone: Blood hemoglobin measurement (mass/volume)on 03-01-2022 Hemoglobin (Bld) [Mass/Vol] 15.0 g/dL 13.0-16.5 [facility] Work Phone: Blood lymphocytes/100 leukoc yteson 03-01-2022 Lymphocytes/100 WBC (Bld) 13.0 % 19-41 [facility] Work Phone: Blood monocytes/100 leukocyt eson 03-01-2022 Monocytes/100 WBC (Bld) 11.5 % 0-10 [facility] Work Phone: Blood platelet mean volumeon 03-01-2022 Platelet mean volume (Bld) [Entitic vol] 10.3 fL 6.2-12.0 [facility] Work Phone: Determination of erythrocyte mean corpuscular volume (MCV)on 03-01-2022 MCV (RBC) [Entitic vol] 89.2 fL 80-94 [facility] Work Phone: Hematocrit Auto (Bld) [Volum e fraction]on 03-01-2022 Hematocrit (Bld) [Volume fraction] 45.5 % 40-54 [facility] Work Phone: Iron measurement (mass/mass) on 03-01-2022 Iron (Unsp spec) [Mass/Mass] 88 ug/dL 65-175 [facility] Work Phone: Laboratory - Chemistry and C hemistry - challengeon 03-01-2022 ALP [Catalytic activity/Vol] 86 U/L 45-117 [facility] Work Phone: [phone] ALT [Catalytic activity/Vol] 54 U/L 16-61 [facility] Work Phone: [phone] CO2 [Moles/Vol] 23.0 mmol/L 21.0-32.0 [facility] Work Phone: [phone] Globulin (S) [Mass/Vol] 4.1 g/dL 2.2-4.2 [facility] Work Phone: Urea nitrogen/Creatinine [Mass ratio] 18.1 mg/mg 10-20 [facility] Work Phone: Laboratory - Hematology and Cell countson 03-01-2022 Erythrocyte distribution width (RBC) [Entitic vol] 44.2 fL 35.1-43.9 [facility] Work Phone: [phone] Erythrocyte distribution width (RBC) [Ratio] 13.5 % 11.6-14.6 [facility] Work Phone: [phone] Immature granulocytes/100 WBC (Bld) 0.700 % 0.0-0.9 [facility] Work Phone: Comment on above: IG% - Immature Granu locytes (promyelocytes, myelocytes and metamyelocytes) > 1% indicates that a LEFT SHIFT is Present. MCH (RBC) [Entitic mass] 29.4 pg 27.0-32.0 [facility] Work Phone: Nucleated RBC/100 WBC (Bld) [Ratio] 0 % 0-5 [facility] Work Phone: MCHC Auto (RBC) [Mass/Vol]on 03-01-2022 MCHC (RBC) [Mass/Vol] 33.0 g/dL 32-36 [facility] Work Phone: No Panel Informationon 03-01 Estimated GFR (MDRD) Amer 109 mL/min >60 [facility] Work Phone: Comment on above: GFR Calc Estimated GFR (MDRD) Non-Af Amer 90 mL/min >60 [facility] Work Phone: Comment on above: Non- GFR Calc Prostate Specific Antigen Screen 1.19 ng/mL 0.00-4.00 [facility] Work Phone: Comment on above: This test was perfor med using the TPSA assay method for [employer] chemistry system. Values obtained with differentassay methods cannot be used interchangably.When changing PSA assays in the course of monitoring apatient, additional sequential testing should be carriedout to confirm baseline values. Thyroid Stimulating Hormone (TSH) 3.85 uIU/mL 0.358-3.74 [facility] Work Phone: Total Iron Binding Capacity 306 ug/dL 250-450 [facility] Work Phone: Platelets bldon 03-01-2022 Platelets (Bld) [#/Vol] 293 10*3/uL 150-450 [facility] Work Phone: Serum or plasma albumin joseph urement (mass/volume)on 03-01-2022 Albumin [Mass/Vol] 3.9 g/dL 3.2-5.0 [facility] Work Phone: Serum or plasma albumin/glob ulin mass ratioon 03-01-2022 Albumin/Globulin [Mass ratio] 1.0 {ratio} 0.9-2.4 [facility] Work Phone: Serum or plasma calcium joseph urement (mass/volume)on 03-01-2022 Calcium [Mass/Vol] 9.2 mg/dL 8.5-10.1 [facility] Work Phone: Serum or plasma cholesterol in HDL measurement (mass/volume)on 03-01-2022 Cholesterol in HDL [Mass/Vol] 65 mg/dL >40 [facility] Work Phone: Comment on above: The drugs N-Acetylcy steine and Metamizole may falsely depress this assay. Reference Range HDL <40 mg/dL Low HDL Cholesterol HDL >or= 60 mg/dL High HDL Cholesterol Serum or plasma cholesterol in VLDL measurement (mass/volume)on 03-01-2022 Cholesterol in VLDL [Mass/Vol] 23 mg/dL 5-40 [facility] Work Phone: Serum or plasma creatinine m easurement (mass/volume)on 03-01-2022 Creatinine [Mass/Vol] 0.88 mg/dL 0.70-1.30 [facility] Work Phone: Comment on above: The validity of the calculated GFR & GFRAA in patients over 70 years has not been determined. Clinical correlation is essential. Serum or plasma ferritin samina surement (mass/volume)on 03-01-2022 Ferritin [Mass/Vol] 161 ng/mL 26-388 [facility] Work Phone: Serum or plasma iron saturat ion measurement (mass fraction)on 03-01-2022 Iron saturation [Mass fraction] 28.8 % 15.0-55.0 [facility] Work Phone: Serum or plasma low density lipoprotein (LDL) cholesterol measurement (mass/volume)on 03-01-2022 Cholesterol in LDL [Mass/Vol] 56 mg/dL 0-130 [facility] Work Phone: Serum or plasma urea nitroge n measurement (mass/volume)on 03-01-2022 Urea nitrogen [Mass/Vol] 16 mg/dL 7-18 [facility] Work Phone: Thin prep Papanicolaou smear with manual screeningon 03-01-2022 Thin prep Papanicolaou smear with manual screening 43 U/L 15-37 [facility] Work Phone: Thin prep Papanicolaou smear with manual screening 9 -15 [facility] Work Phone: No Panel Informationon 12-24 POC SARS CoV-2 Antigen Negative [facility] Work Phone: No Panel Informationon 09-05 -2022 POC SARS CoV-2 Antigen Positive [facility] Work Phone: Basophil percentageon 2021 Bilirubin [Mass/Vol] 0.80 mg/dL 0.20-1.00 [facility] Work Phone: Comment on above: For patients on eltr ombopag therapy, use of Dimension [place] TBIL is not recommended. Cholesterol [Mass/Vol] 125 mg/dL <200 [facility] Work Phone: Comment on above: <200 mg/dL Desirable 200-240 mg/dL Borderline >240 mg/dL High Risk Protein [Mass/Vol] 7.9 g/dL 6.4-8.2 [facility] Work Phone: Triglyceride [Mass/Vol] 47 mg/dL [facility] Work Phone: Comment on above: The drugs N-Acetylcy steine and Metamizole may falsely depress this assay.Serum Triglycerides Reference Interval Normal <150 mg/dL Borderline high 150 - 199 mg/dL High 200 - 499 mg/dL Very High > or = 500 mg/dL Direct bilirubinon 2 Bilirubin.direct [Mass/Vol] 0.21 mg/dL 0.00-0.30 [facility] Work Phone: Laboratory - Chemistry and C hemistry - challengeon 07-05-2021 ALP [Catalytic activity/Vol] 87 U/L 45-117 [facility] Work Phone: ALT [Catalytic activity/Vol] 56 U/L 16-61 [facility] Work Phone: Globulin (S) [Mass/Vol] 3.8 g/dL 2.2-4.2 [facility] Work Phone: Serum or plasma albumin joseph urement (mass/volume)on 07-05-2021 Albumin [Mass/Vol] 4.1 g/dL 3.2-5.0 [facility] Work Phone: Serum or plasma cholesterol in HDL measurement (mass/volume)on 07-05-2021 Cholesterol in HDL [Mass/Vol] 58 mg/dL [facility] Work Phone: Comment on above: The drugs N-Acetylcy steine and Metamizole may falsely depress this assay. Reference Range HDL <40 mg/dL Low HDL Cholesterol HDL >or= 60 mg/dL High HDL Cholesterol Serum or plasma cholesterol in VLDL measurement (mass/volume)on 07-05-2021 Cholesterol in VLDL [Mass/Vol] 9 mg/dL 5-40 [facility] Work Phone: Serum or plasma low density lipoprotein (LDL) cholesterol measurement (mass/volume)on 07-05-2021 Cholesterol in LDL [Mass/Vol] 58 mg/dL 0-130 [facility] Work Phone: Thin prep Papanicolaou smear with manual screeningon 07-05-2021 Thin prep Papanicolaou smear with manual screening 43 U/L 15-37 [facility] Work Phone: Basic Panelon 08-04-2018 Creatinine mass conc 0.85 mg/dL Normal 0.67-1.17 [facility] Comment on above: Performed By: #### C BC1 #### [facility] [address] [place] [address] Anion gap molar conc 13 mmol/L Normal 8-16 [facility] Comment on above: Performed By: #### C BC1 #### [facility] [address] [place], [place] [address] CO2 molar conc 22 mmol/L Normal 21-32 [facility] Comment on above: Performed By: #### C BC1 #### [facility] [address] [place], [place] [address] Glucose mass conc 102 mg/dL High 70-99 [facility] Comment on above: Performed By: #### C BC1 #### [facility] [address] [place] [address] Urea nitrogen mass conc 17 mg/dL Normal 7-18 [facility] Comment on above: Performed By: #### C BC1 #### [facility] [address] [place], [place] [address] Calcium mass conc 8.9 mg/dL Normal 8.5-10.1 [facility] Comment on above: Performed By: #### C BC1 #### [facility] [address] [place] [address] Chloride molar conc 103 mmol/L Normal 98-107 [facility] Comment on above: Performed By: #### C BC1 #### [facility] [address] [place] [address] Potassium molar conc 3.9 mmol/L Normal 3.5-5.1 [facility] Comment on above: Performed By: #### C BC1 #### [facility] [address] [place] [address] Sodium molar conc 134 mmol/L Low 136-145 [facility] Comment on above: Performed By: #### C BC1 #### [facility] [address] [place] [address] Hemogramon 08-04-2018 Erythrocyte distribution width Ratio (RBC) 13.7 % Normal 11.6-14.4 [facility] Comment on above: Performed By: #### C BC1 #### [facility] [address] [place] [address] Hematocrit Volume Fraction (Bld) 37.2 % Low 40.1-51.0 [facility] Comment on above: Performed By: #### C BC1 #### [facility] [address] [place] [address] Hemoglobin mass conc (Bld) 12.5 g/dL Low 13.7-17.5 [facility] Comment on above: Performed By: #### C BC1 #### [facility] [address] [place] [address] MCH Entitic mass (RBC) 29.8 pg Normal 25.7-32.2 [facility] Comment on above: Performed By: #### C BC1 #### [facility] [address] [place] [address] MCHC mass conc (RBC) 33.6 % Normal 32.3-36.5 [facility] Comment on above: Performed By: #### C BC1 #### [facility] [address] [place] [address] MCV Entitic volume (RBC) 88.8 fL Normal 83.2-95.6 [facility] Comment on above: Performed By: #### C BC1 #### [facility] [address] [place] [address] Platelet mean volume Entitic volume (Bld) 10.1 fL Normal 8.7-12.0 [facility] Comment on above: Performed By: #### C BC1 #### [place] [address] Platelets #/vol (Bld) 246 thou/cmm Normal 141-365 [facility] Comment on above: Performed By: #### C BC1 #### [place] [address] RBC #/vol (Bld) 4.19 mil/cmm Low 4.63-6.08 [facility] Comment on above: Performed By: #### C BC1 #### [place] [address] RDW SD 44.9 fl Normal 36.1-45.8 [facility] Comment on above: Performed By: #### C BC1 #### [place] [address] WBC #/vol (Bld) 8.24 thou/cmm Normal 4.23-9.07 [facility] Comment on above: Performed By: #### C BC1 #### [place] [address] MDRD GFRon 08-04-2018 GFR/1.73 sq M predicted among non-blacks MDRD vol rate/area (S/P/Bld) mL/min/{1.73_m2} Normal >60mL/min/[address] [facility] Comment on above: Result Comment: If t he patient is , multiply the result by 1.210. Performed By: #### G FR #### [place] [address] PROGRESSon 08-04-2018 Protein mass conc HNO ID: [id number] Author: Sundeep Weldon Service: Cardiovascular Medicine Author [...] 2018 Patient Name: Anita Guzman Patient Location: [id number]/[id number]* Admission Date: 08/01/2018 Length of Stay: [...] angina symptoms for which she presented to [facility] on 06/30/18. Diagnostic catheterization revealed 75% stenosis [...] mouth three times daily for 30 days. vdeevbyqpbl-ssnwnekfb-vgo anter (TRELEGY ELLIPTA) 100-62.5-25 mcg dsdv Inhale [...] (DEFINITY) 1.3 mL INTRAVENOUS DIRECTED PRN Alma ([place]) Beto oxyCODONE-acetaminophen 5-325 mg 1 tablet (PERCOCET) 1 tablet ORAL q 8 H PRN Alma (Res) Beto 1 tablet at 08/03/18 1723 sodium chloride 0.65 % 2 Mousie (AYR, OCEAN) 2 Mousie EACH NOSTRIL PRN Seferino Lorraine tiotropium 2.5 mcg/actuation 2 Puff (SPIRIVA RESPIMAT) 2 Puff INHALATION DAILY Alma Pérez 2 Puff at 08/03/18 0936 fluticasone-vilanterol 100-25 mcg/dose 1 Inhalation (BREO ELLIPTA) 1 Inhalation INHALATION DAILY Alma ([place]) Beto 1 Inhalation at 08/03/18 0935 perflutren lipid microspheres 1.1 mg/mL 1.3 mL injection (DEFINITY) 1.3 mL INTRAVENOUS DIRECTED PRN Martin Garcia (Res) MD Pamela citalopram 20 mg tab(s) (CeleXA) 20 mg ORAL DAILY Martin Garcia Res, Cha, MD 20 mg at 08/03/18 0935 tamsulosin ER 0.4 mg cap(s) (FLOMAX) 0.4 mg ORAL DAILY Martin Garcia (Nicholas Santiago MD 0.4 mg at 08/03/18 0933 nitroglycerin [...] Intake 380 ml Output 2405 ml Net -2024 ml Serum creatinine: 0.85 mg/dL 08/04/18 0500 [...] 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 - Troponin downtrending 4.48 -> 4.16. Can [...] effusion. Signed: Sundeep Weldon DO, PGY-1 Pager: [phone] [facility] Date: August 04, 2018 Time: 7:29 AM Recommendations are not finalized until co-signed by Staff physician. Normal [facility] Basic Panelon 08-03-2018 Creatinine mass conc 0.90 mg/dL Normal 0.67-1.17 [facility] Comment on above: Performed By: #### C BC1 #### [place] [address] Anion gap molar conc 9 mmol/L Normal 8-16 [facility] Comment on above: Performed By: #### C BC1 #### [place] [address] CO2 molar conc 25 mmol/L Normal 21-32 [facility] Comment on above: Performed By: #### C BC1 #### [facility] [address] [place], [place] [address] Urea nitrogen mass conc 17 mg/dL Normal 7-18 [facility] Comment on above: Performed By: #### C BC1 #### [facility] [address] [place], [place] [address] Calcium mass conc 8.4 mg/dL Low 8.5-10.1 [facility] Comment on above: Performed By: #### C BC1 #### [facility] [address] [place], [place] [address] Glucose mass conc 102 mg/dL High 70-99 [facility] Comment on above: Performed By: #### C BC1 #### [place] [address] Chloride molar conc 106 mmol/L Normal 98-107 [facility] Comment on above: Performed By: #### C BC1 #### [facility] [address] [place] [address] Potassium molar conc 4.0 mmol/L Normal 3.5-5.1 [facility] Comment on above: Performed By: #### C BC1 #### [facility] [address] [place] [address] Sodium molar conc 136 mmol/L Normal 136-145 [facility] Comment on above: Performed By: #### C BC1 #### [facility] [address] [place] [address] CASE MANAGEMon 08-03-2018 CASE MANAGEM HNO ID: [id number] Author: Dottie (Rn) JANICE Barnett Service: Care Management Author Type: Registered Nurse Type: Care Mgt Progress Note Filed: 08/03/2018 2:18 PM Note Text: CARE MANAGEMENT PROGRESS NOTE SERVICE DATE: 08/03/2018 SERVICE TIME: 2:17 PM LOS: 2 days Needs Prior to Discharge: Pharmacy Bedside Delivery S/p PCI, has pericardial drain in place. Disch plan is home on [facility] pharmacy following. SIGNATURE: Dottie Barnett RN PATIENT NAME: Anita Guzman DATE: August 03, 2018 TIME: 2:17 PM PAGER/CONTACT #: [phone] [facility] CASE MANAGEM HNO ID: [id number] Author: Bhumika King Service: Care Management Author Type: ? Type: Care Mgt Progress Note Filed: 08/03/2018 10:08 AM Note Text: CARE MANAGEMENT PROGRESS NOTE SERVICE DATE: 08/03/2018 SERVICE TIME: 914 LOS: 2 days IM letter given to patient on [id number]. SIGNATURE: Bhumika King PATIENT NAME: Anita Guzman DATE: August 03, 2018 TIME: 10:08 AM PAGER/CONTACT #: [phone] [facility] Hemogramon 08-03-2018 Erythrocyte distribution width Ratio (RBC) 13.8 % Normal 11.6-14.4 [facility] Comment on above: Performed By: #### C BC1 #### [facility] [address] [place] [address] Hematocrit Volume Fraction (Bld) 34.1 % Low 40.1-51.0 [facility] Comment on above: Performed By: #### C BC1 #### [facility] [address] [place] [address] Hemoglobin mass conc (Bld) 11.1 g/dL Low 13.7-17.5 [facility] Comment on above: Performed By: #### C BC1 #### [facility] [address] [place] [address] MCH Entitic mass (RBC) 29.4 pg Normal 25.7-32.2 [facility] Comment on above: Performed By: #### C BC1 #### [facility] [address] [place] [address] MCHC mass conc (RBC) 32.6 % Normal 32.3-36.5 [facility] Comment on above: Performed By: #### C BC1 #### [facility] [address] [place] [address] MCV Entitic volume (RBC) 90.2 fL Normal 83.2-95.6 [facility] Comment on above: Performed By: #### C BC1 #### [facility] [address] [place] [address] Platelet mean volume Entitic volume (Bld) 10.0 fL Normal 8.7-12.0 [facility] Comment on above: Performed By: #### C BC1 #### [facility] [address] [place] [address] Platelets #/vol (Bld) 202 thou/cmm Normal 141-365 [facility] Comment on above: Performed By: #### C BC1 #### [facility] [address] [place] [address] RBC #/vol (Bld) 3.78 mil/cmm Low 4.63-6.08 [facility] Comment on above: Performed By: #### C BC1 #### [facility] [address] [place] [address] RDW SD 44.9 fl Normal 36.1-45.8 [facility] Comment on above: Performed By: #### C BC1 #### [facility] [address] [place], [place] [address] WBC #/vol (Bld) 11.97 thou/cmm High 4.23-9.07 [facility] Comment on above: Performed By: #### C BC1 #### [facility] [address] [place] [id number] PROGRESSon 08-03-2018 Protein mass conc HNO ID: [id number] Author: Martin Garcia ([place]) MD Pamela Service: Cardiovascular Medicine Author Type: Resident Type: Progress Notes Filed: 08/21/2018 8:08 AM Note Text: INTERNAL MEDICINE PROGRESS NOTE ADMITTING PHYSICIAN: Jia Victoria Subjective Brief HPI: This is a 68 year old male with h/o COPD, prior alcohol and polysubstance abuse was admitted yesterday regarding an abnormal stress test done as OP.?He initially presented to [facility] on 06/30/2018 with complaints of typical anginal [...] 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 Author Type: Registered Nurse Type: Allied Health Filed: 08/02/2018 2:33 PM Note Text: CARDIAC REHABILITATION PATIENT EDUCATION PROGRESS NOTE Name: Anita Guzman Date of Service: 08/02/2018 Time of Service: 1400 ASSESSMENT: Risk Factors Identified: Age Gender Hyperlipidemia Hypertension Reformed Smoker: Year Quit: 2001. RECOMMENDATIONS: Patient interested in Phase II Outpatient Cardiac Rehab: Yes. Facility Preferred: [place] DIAGNOSIS: Percutaneous Cardiac Intervention: JAKOB PCI Teaching [...] Educational Binder Signature: Leo Isaac RN Pager: [phone] Date: August 02, 2018 Time: 2:25 PM Normal [facility] Basic Panelon 08-02-2018 Creatinine mass conc 0.99 mg/dL Normal 0.67-1.17 [facility] Comment on above: Performed By: #### P 8 #### [place] [address] Glucose mass conc 125 mg/dL High 70-99 [facility] Comment on above: Performed By: #### P 8 #### [facility] [address] [place] [address] Anion gap molar conc 9 mmol/L Normal 8-16 [facility] Comment on above: Performed By: #### P 8 #### [place] [address] Calcium mass conc 8.7 mg/dL Normal 8.5-10.1 [facility] Comment on above: Performed By: #### P 8 #### [facility] [address] [place] [address] CO2 molar conc 25 mmol/L Normal 21-32 [facility] Comment on above: Performed By: #### P 8 #### [facility] [address] [place] [address] Urea nitrogen mass conc 15 mg/dL Normal 7-18 [facility] Comment on above: Performed By: #### P 8 #### [facility] [address] [place] [address] Chloride molar conc 105 mmol/L Normal 98-107 [facility] [facility] Comment on above: Performed By: #### P 8 #### [place] [address] Potassium molar conc 4.1 mmol/L Normal 3.5-5.1 [facility] Comment on above: Performed By: #### P 8 #### [facility] [address] [place] [address] Sodium molar conc 135 mmol/L Low 136-145 [facility] Comment on above: Performed By: #### P 8 #### [facility] [address] [place] [address] CASE MGT INIT BENJIEon 2018 CASE MGT INIT ASSZIYAD HNO ID: [id number] Author: Mariama (Rn) JANICE Alves Service: ? 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 No Advance Directive: Current Advance Directive: None Eeg Technologist Attempted to Assist with AD Completion: Yes [...] prn Has the Patient Been in a [facility] Facility in the Past 30 days? 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 Comment on above: Performed By: #### C BC1 #### [place] [address] Hematocrit Volume Fraction (Bld) 37.9 % Low 40.1-51.0 [facility] Comment on above: Performed By: #### C BC1 #### [facility] [address] [place], [place] [address] Hemoglobin mass conc (Bld) 12.6 g/dL Low 13.7-17.5 [facility] Comment on above: Performed By: #### C BC1 #### [address] [address] MCH Entitic mass (RBC) 29.8 pg Normal 25.7-32.2 [facility] Comment on above: Performed By: #### C BC1 #### [facility] [address] [place] [address] MCHC mass conc (RBC) 33.2 % Normal 32.3-36.5 [facility] Comment on above: Performed By: #### C BC1 #### [facility] [address] [place] [address] MCV Entitic volume (RBC) 89.6 fL Normal 83.2-95.6 [facility] Comment on above: Performed By: #### C BC1 #### [facility] [address] [place] [address] Platelet mean volume Entitic volume (Bld) 9.9 fL Normal 8.7-12.0 [facility] Comment on above: Performed By: #### C BC1 #### [facility] [address] [place] [address] Platelets #/vol (Bld) 266 thou/cmm Normal 141-365 [facility] Comment on above: Performed By: #### C BC1 #### [facility] [address] [place] [address] RBC #/vol (Bld) 4.23 mil/cmm Low 4.63-6.08 [facility] Comment on above: Performed By: #### C BC1 #### [facility] [address] [place] [address] RDW SD 45.3 fl Normal 36.1-45.8 [facility] Comment on above: Performed By: #### C BC1 #### [facility] [address] [place] [address] WBC #/vol (Bld) 14.62 thou/cmm High 4.23-9.07 [facility] Comment on above: Performed By: #### C BC1 #### [facility] [address] [place] [address] Lipid Profileon 08-02-2018 Cholesterol in HDL mass conc 64 mg/dL Normal >40 [facility] Comment on above: Performed By: #### C BC1 #### [facility] [address] [place], [place] [address] Cholesterol in LDL mass conc 59 mg/dL Normal [facility] Comment on above: Result Comment: No C AD and with fewer than 2 CAD risk factors <160 mg/dL No CAD but with 2 or more CAD risk factors <130 mg/dL Definite CAD or other atherosclerotic disease <100 mg/dL Performed By: #### C BC1 #### [address] [address] Cholesterol in LDL/Cholesterol in HDL mass ratio 0.9 Low 1.1-4.8 [facility] Comment on above: Result Comment: LDL, VLDL,LDL/HDL, Invalid if Triglyceride >400 Performed By: #### C BC1 #### [address] [address] Cholesterol.total/Chol esterol in HDL mass ratio 2.0 {ratio} Low 2.1-7.3 [facility] Comment on above: Performed By: #### C BC1 #### [place] [address] Cholesterol in VLDL mass conc 8 mg/dL Normal <[address] [facility] Comment on above: Performed By: #### C BC1 #### [address] [address] Triglyceride mass conc 39 mg/dL Normal 0-149 [facility] Comment on above: Result Comment: < 20 0 Desirable Result invalid if not a fasting specimen. Performed By: #### C BC1 #### [address] [address] Cholesterol mass conc 131 mg/dL Normal 0-199 [facility] Comment on above: Result Comment: <200 Desirable 200-240 Borderline >240 High Performed By: #### C BC1 #### [place] [address] NUTRITIONon 08-02-2018 NUTRITION HNO ID: [id number] Author: Louisa Baez Service: Nutrition Therapy Author [...] TIME: 11:38 AM PAGER: [phone] [facility] PLAN OF CAREon 08-02-2018 PLAN OF CARE HNO ID: [id number] Author: Luba Mendoza (Pharmacist) Service: ? 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 07/31/2018 at Unknown time Yes ugtqdnbcymc-pmutdjokx-iza anter (TRELEGY ELLIPTA) 100-62.5-25 mcg dsdv Inhale [...] PHARMACIST August 02, 2018 12:36 PM Normal [facility] PLAN OF CARE HNO ID: [id number] Author: Luba Mendoza (Pharmacist) Service: ? Author Type: Pharmacist Type: Plan of Care Filed: 08/02/2018 12:36 PM Note Text: MEDICATION HISTORY Patient Name:.Anita Guzman : 1950 Source of history:Spoke with patient; appears reliable. Also reviewed fill history avaliable on [email or web address] Medication Nonadherence Identified: No barriers noted. The above information represents the best possible medication history: Yes Additional comments: Verified all medications with patient. 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 07/31/2018 at Unknown time Yes wukjtjiwqog-oeuivsteb-xph anter (TRELEGY ELLIPTA) 100-62.5-25 mcg dsdv Inhale 1 Puff as instructed once daily as needed. 08/01/2018 at Unknown time Yes pramipexole (MIRAPEX) 0.25 mg tablet Take 1 tablet by mouth daily at bedtime. 07/31/2018 at Unknown time Yes tSTARTED ON THIS ADMISSION Tadalafil (CIALIS) 10 mg tablet Take 1 tablet by mouth as needed (30 minutes prior intercourse.). Francisca Abraham (Data Acquisition Technician) August 02, 2018 10:09 AM Normal [facility] PROGRESSon 08-02-2018 Protein mass conc HNO ID: [id number] Author: Martin Garcia ([place]) MD Pamela Service: Cardiovascular Medicine Author Type: Resident Type: Progress Notes Filed: 08/02/2018 10:19 AM Note Text: ----- Attestation signed by Seferino Peters at 08/03/2018 2:42 PM Patient personally seen and examined. Case discussed with resident and team. I agree with documentation. Seferino Peters MD, FACP, FACC, [facility] Staff Cardiovascular Medicine [facility] Regional Section of Interventional Cardiology at [facility] Medicine of 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 Comment on above: Performed By: #### C BC1 #### [facility] [address] [place] [address] Troponin I.cardiac mass conc 4.480 ng/mL Critically high 0.015-0.045 [facility] Comment on above: Performed By: #### C BC1 #### [facility] [address] [place] [address] Troponin I.cardiac mass conc 4.260 ng/mL Critically high 0.015-0.045 [facility] Comment on above: Performed By: #### T ROP #### [facility] [address] [place] [address] Troponin I.cardiac mass conc 2.910 ng/mL Critically high 0.015-0.045 [facility] Comment on above: Performed By: #### T ROP #### [facility] [address] [place] [address] ACT Arterial Panel (i-STAT)o n 08-01-2018 Kaolin ACT ( i-STAT) 164 sec High 74-137 [facility] Comment on above: Performed By: #### A CTIA #### [place] [address] BRIEF OP NOTon 08-01-2018 BRIEF OP NOT HNO ID: [id number] Author: Seferino Peters Service: Interventional Cardiology Author Type: Physician Type: Brief Op Note Filed: 08/01/2018 5:28 PM Note Text: Brief Note Anita Guzman [id number] 1950 08/01/2018 Michael Arroyo MD Note: Coronary [...] ostium was engaged with a Dean Right 6-Lithuanian guiding catheter that provided fair support. The lesion was crossed successfully without difficulty using a Vitaliy Blue wire, and direct stented with a 5.0 mm x 32 mm everolimus-eluting [place] chromium stent. The stent was post-dilated to [...] radial artery. Seferino Peters MD, FACP, FACC, [facility] Staff Cardiovascular Medicine [facility] Regional Section of Interventional Cardiology at [facility] Medicine of [facility] [address], [address] [place], [place] [address] P: [phone] F: [phone] [email or web address] Normal [facility] BRIEF OP NOT HNO ID: [id number] Author: Jia Victoria Service: Cardiovascular Medicine Author Type: Physician Type: Brief Op Note Filed: 08/01/2018 8:28 AM Note Text: Cath-Indication: Abn stress test Findings LVEF 65% L Main, LAD, LCx luminals RCA large vessel mid 75 mid [address] Peters to perform Jia Victoria MD Pager [phone] Normal [facility] Basic Panelon 08-01-2018 Creatinine mass conc 0.85 mg/dL Normal 0.67-1.17 [facility] Comment on above: Performed By: #### P 8 #### [place] [id number] Urea nitrogen mass conc 17 mg/dL Normal 7-18 [facility] Comment on above: Performed By: #### P 8 #### [place] [address] Anion gap molar conc 11 mmol/L Normal 8-16 [facility] Comment on above: Performed By: #### P 8 #### [facility] [address] [place] [address] Calcium mass conc 8.3 mg/dL Low 8.5-10.1 [facility] Comment on above: Performed By: #### P 8 #### [facility] [address] [place] [address] CO2 molar conc 25 mmol/L Normal 21-32 [facility] Comment on above: Performed By: #### P 8 #### [facility] [address] [place] [address] Glucose mass conc 102 mg/dL High 70-99 [facility] Comment on above: Performed By: #### P 8 #### [facility] [address] [place] [address] Chloride molar conc 108 mmol/L High 98-107 [facility] Comment on above: Performed By: #### P 8 #### [facility] [address] [place] [address] Potassium molar conc 4.1 mmol/L Normal 3.5-5.1 [facility] Comment on above: Performed By: #### P 8 #### [facility] [address] [place] [address] Sodium molar conc 140 mmol/L Normal 136-145 [facility] Comment on above: Performed By: #### P 8 #### [facility] [address] [place] [address] HISTORY PHYSICALon 9 HISTORY PHYSICAL HNO ID: [id number] Author: Alma Pérez Service: Cardiovascular Medicine Author Type: Resident Type: HANDP Filed: 08/01/2018 11:17 AM Note Text: ----- Attestation signed by Seferino Peters at 08/01/2018 2:20 PM Patient personally seen and examined. Case discussed with resident and team. I agree with documentation. Seferino Peters MD, FACP, FACC, [facility] Staff Cardiovascular Medicine [facility] Regional Section of Interventional Cardiology at [facility] of [facility] [address], [address] [place], [place] [address] P: [phone] F: [phone] [email or web address] ----- HISTORY AND PHYSICAL EXAMINATION SERVICE DATE: 08/01/2018 SERVICE TIME: 10:30AM PRIMARY CARE PHYSICIAN: Michael Arroyo MD Subjective CHIEF COMPLAINT: Abnormal stress test HPI: This is a 68 year old male with h/o COPD, prior alcohol and polysubstance abuse was admitted yesterday regarding an abnormal stress test done as OP. He initially presented to [facility] on 06/30/2018 with complaints of typical anginal [...] stenosis of the RCA. He subsequently underwent [facility] this am for intervention. He underwent [...] Laterality Date - COLONOSCOP W/ OR W/O [facility] 10/31/05 - COLONOSCOP W/ OR W/O [facility]C 11/12/15 Colonoscopy - SECONDARY RECONSTRUCTION,ANKLE JOINT [...] capsule Rfl: 2 07/31/2018 at Unknown time kqjrxxsnxqp-almzeuuxy-ivv anter (TRELEGY ELLIPTA) 100-62.5-25 mcg dsdv Inhale [...] showing NSR with no ST-T wave changes -[facility] done today and underwent PCI of RCA with JAKOB stent. 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 Comment on above: Performed By: #### C BC1 #### [place] [address] Hematocrit Volume Fraction (Bld) 38.2 % Low 40.1-51.0 [facility] Comment on above: Performed By: #### C BC1 #### [place] [address] Hemoglobin mass conc (Bld) 12.3 g/dL Low 13.7-17.5 [facility] Comment on above: Performed By: #### C BC1 #### [place] [id number] MCH Entitic mass (RBC) 29.1 pg Normal 25.7-32.2 [facility] Comment on above: Performed By: #### C BC1 #### [facility] [address] [place] [address] MCHC mass conc (RBC) 32.2 % Low 32.3-36.5 [facility] Comment on above: Performed By: #### C BC1 #### [facility] [address] [place] [address] MCV Entitic volume (RBC) 90.3 fL Normal 83.2-95.6 [facility] Comment on above: Performed By: #### C BC1 #### [facility] [address] [place] [address] Platelet mean volume Entitic volume (Bld) 10.4 fL Normal 8.7-12.0 [facility] Comment on above: Performed By: #### C BC1 #### [place] [address] Platelets #/vol (Bld) 223 thou/cmm Normal 141-365 [facility] Comment on above: Performed By: #### C BC1 #### [place] [address] RBC #/vol (Bld) 4.23 mil/cmm Low 4.63-6.08 [facility] Comment on above: Performed By: #### C BC1 #### [facility] [address] [place] [address] RDW SD 45.4 fl Normal 36.1-45.8 [facility] Comment on above: Performed By: #### C BC1 #### [facility] [address] [place] [address] WBC #/vol (Bld) 9.17 thou/cmm High 4.23-9.07 [facility] Comment on above: Performed By: #### C BC1 #### [place] [address] Magnesium Bloodon 08-01-2018 Magnesium mass conc 2.0 mg/dL Normal 1.6-2.6 [facility] Comment on above: Performed By: #### M AG #### [facility] [address] [place] [address] PROGRESSon 08-01-2018 Protein mass conc HNO ID: [id number] Author: Ammy Hough Service: Cardiovascular Medicine Author Type: Nurse Practitioner Type: Progress Notes Filed: 08/01/2018 10:58 PM Note Text: CARDIOTHORACICSURGERY PROGRESS NOTE SERVICE DATE: 08/01/2018 SERVICE TIME: 10:10am Called to see patient for c/o chest pain. Pt is a 68yo male with CAD with stable angina and abnormal stress test who presented today for [facility]. Underwent placement of JAKOB to RCA. [...] 01, 2018 TIME: 10:51 AM PAGER/CONTACT #: [phone] [id number] Normal [facility] Troponin Ion 08-01-2018 Troponin I.cardiac mass conc 0.675 ng/mL High 0.015-0.045 [facility] Comment on above: Performed By: #### T ROP #### [facility] [address] [place] [address] HOSPon 07-30-2018 HOSP Patient:Anita Guzman MRN: Height:5' [...] mg tablet gabapentin (NEURONTIN) 300 mg capsule lyaemosziay-rzkddcpbn-itq anter (TRELEGY ELLIPTA) 100-62.5-25 mcg dsdv pramipexole [...] 38.4 % 07/30/2018 51.0 39.0 Progress Notes ([facility]): Eliana Lindsey Pss 07/30/2018 1:54 PM Signed Patient has [...] needed. LÓPEZ: No Authorizing Provider: REBECCA GOODEN ([facility]) Rebecca Gooden APRN.CHRIS Progress Notes ([place] PROVIDER ADULT): Jia Victoria MD 07/30/2018 6:[address] Royal Garcia in [place] asking me to do cath on this pt at [facility] for abn stress test -please see if pt can do either This MonAug 01 or next Aug 07. Needs CBC but not BMP Thx Sourav Gómez RN 07/30/2018 8:57 AM Signed [facility] requesting pt return call to discuss scheduling heart cath.Office phone number provided. JANICE Grey RN 07/30/2018 9:49 AM Signed Pt returns call. Patient scheduled for left heart cath, rt radial, with Dr Victoria on Mon08/01/18. Instructions reviewed. Questions answered. Patient verbalized understanding. Instructions were as follows: -Arrive to [facility] HANDV Entrance 08/01/18 at time assigned by [facility] supervisor cytogenetic laboratory staff in phone call 07/31/18 PM.. -Nothing by mouth after midnight evening prior. -With a sip of water on 08/01/18 morning take: Aspirin 325mg. -Labs to be done no later than 07/31/18. CBC order entered. - You must have someone drive you home from your procedure. -supervisor cytogenetic laboratory policy is pt not be alone first evening Office phone number provided for questions or concerns. [facility] agricultural labor camp manager notified. Day Gómez RN Ebony Whitley 07/30/2018 10:28 AM Signed auth pending with Maryana, tracking #[id number] Ebony Whitley 07/31/2018 8:44 AM Signed auth approved and in chart. We have started a new process to provide estimates to our patients for their upcoming appointment at [facility]. The purpose is to make you aware of your financial obligation after your insurance company pays. Your insurance shows your estimated patient responsibility for this service is $0.00. We are not collecting your estimate at this time but wanted you to be aware of potential out of pocket expenses based on the estimate we ran for you. Ebony Whitley Normal [facility] Vital Signs Date Time Vital Sign Value Performing Clinician Uvaldo velasquez 11-26-2024 09:01-0400 Body mass index (BMI) [Ratio] 25.2 kg/m2 Dr. Sharon Osorio MD Work Phone: [facility] 11-26-2024 09:01-0400 Body temperature 97.4 [degF] Dr. Sharon Osorio MD Work Phone: [facility] 11-26-2024 09:01-0400 Body weight 75.[address] Sharon Osorio MD Work Phone: [facility] 11-26-2024 09:01-0400 Diastolic blood pressure 65 mm[Hg] Dr. Sharon Osorio MD Work Phone: [facility] 11-26-2024 09:01-0400 Heart rate 77 /min Dr. Sharon Osorio MD Work Phone: [facility] 11-26-2024 09:01-0400 Respiratory rate 18 /min Dr. Sharon Osorio MD Work Phone: [facility] 11-26-2024 09:01-0400 SaO2% (BldA) [Mass fraction] 92 % Dr. Sharon Osorio MD Work Phone: [facility] 11-26-2024 09:01-0400 Systolic blood pressure 144 mm[Hg] Dr. Sharon Osorio MD Work Phone: [facility] 11-14-2024 14:28-0400 Body height 172.[address] Sharon Osorio MD Work Phone: [facility] 11-14-2024 14:28-0400 Body mass index (BMI) [Ratio] 25 kg/m2 Dr. Sharon Osorio MD Work Phone: [facility] 11-14-2024 14:28-0400 Body temperature 97.2 [degF] Dr. Sharon Osorio MD Work Phone: [facility] 11-14-2024 14:28-0400 Body weight 74.[address] Sharon Osorio MD Work Phone: [facility] 11-14-2024 14:28-0400 Diastolic blood pressure 70 mm[Hg] Dr. Sharon Osorio MD Work Phone: [facility] 11-14-2024 14:28-0400 Heart rate 68 /min Dr. Sharon Osorio MD Work Phone: [facility] 11-14-2024 14:28-0400 Respiratory rate 16 /min Dr. Sharon Osorio MD Work Phone: [facility] 11-14-2024 14:28-0400 SaO2% (BldA) [Mass fraction] 99 % Dr. Sharon Osorio MD Work Phone: [facility] 11-14-2024 14:28-0400 Systolic blood pressure 110 mm[Hg] Dr. Sharon Osorio MD Work Phone: [facility] 10-08-2024 12:46-0400 Body height 172.[address] Sharon Osorio MD Work Phone: [facility] 10-08-2024 12:46-0400 Body weight 73.[address] Sharon Osorio MD Work Phone: [facility] 10-08-2024 12:46-0400 Heart rate 90 /min Dr. Sharon Osorio MD Work Phone: [facility] 10-08-2024 12:46-0400 Inhaled oxygen flow rate 2 L/min Dr. Sharon Osorio MD Work Phone: [facility] 10-08-2024 12:46-0400 SaO2% (BldA) [Mass fraction] 87 % Dr. Sharon Osorio MD Work Phone: [facility] 10-02-2024 08:35-0400 Body height 172.[address] Sharon Osorio MD Work Phone: [facility] 10-02-2024 08:35-0400 Body mass index (BMI) [Ratio] 24.9 kg/m2 Dr. Sharon Osorio MD Work Phone: [facility] 10-02-2024 08:35-0400 Body temperature 97.5 [degF] Dr. Sharon Osorio MD Work Phone: [facility] 10-02-2024 08:35-0400 Body weight 74.[address] Sharon Osorio MD Work Phone: [facility] 10-02-2024 08:35-0400 Diastolic blood pressure 63 mm[Hg] Dr. Sharon Osorio MD Work Phone: [facility] 10-02-2024 08:35-0400 Heart rate 84 /min Dr. Sharon Osorio MD Work Phone: [facility] 10-02-2024 08:35-0400 Respiratory rate 18 /min Dr. Sharon Osorio MD Work Phone: [facility] 10-02-2024 08:35-0400 SaO2% (BldA) [Mass fraction] 93 % Dr. Sharon Osorio MD Work Phone: [facility] 10-02-2024 08:35-0400 Systolic blood pressure 111 mm[Hg] Dr. Sharon Osorio MD Work Phone: [facility] 06-05-2024 08:14-0500 Body temperature 97.7 [degF] Dr. Sharon Osorio MD Work Phone: [facility] 06-05-2024 08:14-0500 Diastolic blood pressure 80 mm[Hg] Dr. Sharon Osorio MD Work Phone: [facility] 06-05-2024 08:14-0500 Heart rate 94 /min Dr. Sharon Osorio MD Work Phone: [facility] 06-05-2024 08:14-0500 Respiratory rate 20 /min Dr. Sharon Osorio MD Work Phone: [facility] 06-05-2024 08:14-0500 SaO2% (BldA) [Mass fraction] 88 % Dr. Sharon Osorio MD Work Phone: [facility] 06-05-2024 08:14-0500 Systolic blood pressure 150 mm[Hg] Dr. Sharon Osorio MD Work Phone: [facility] 04-20-2023 15:16-0500 Body height 172.[address] Sharon Osorio Work Phone: [facility] 04-20-2023 15:16-0500 Body mass index (BMI) [Ratio] 26.7 kg/m2 Dr. Sharon Osorio Work Phone: [facility] 04-20-2023 15:16-0500 Body temperature 97 [degF] Dr. Sharon Osorio Work Phone: [facility] 04-20-2023 15:16-0500 Body weight 79.[address] Sharon Osorio Work Phone: [facility] 04-20-2023 15:16-0500 Diastolic blood pressure 80 mm[Hg] Dr. Sharon Osorio Work Phone: [facility] 04-20-2023 15:16-0500 Heart rate 82 /min Dr. Sharon Osorio Work Phone: [facility] 04-20-2023 15:16-0500 Respiratory rate 18 /min Dr. Sharon Osorio Work Phone: [facility] 04-20-2023 15:16-0500 SaO2% (BldA) [Mass fraction] 96 % Dr. Sharon Osorio Work Phone: [facility] 04-20-2023 15:16-0500 Systolic blood pressure 130 mm[Hg] Dr. Sharon Osorio Work Phone: [facility] 04-12-2023 06:02-0500 Body mass index (BMI) [Ratio] 26.6 kg/m2 Dr. Sharon Osorio Work Phone: [facility] 04-12-2023 06:02-0500 Body temperature 98.2 [degF] Dr. Sharon Osorio Work Phone: [facility] 04-12-2023 06:02-0500 Body weight 79.[address] Sharon Osorio Work Phone: [facility] 04-12-2023 06:02-0500 Diastolic blood pressure 72 mm[Hg] Dr. Sharon Osorio Work Phone: [facility] 04-12-2023 06:02-0500 Heart rate 90 /min Dr. Sharon Osorio Work Phone: [facility] 04-12-2023 06:02-0500 Inhaled oxygen flow rate 94 L/min Dr. Sharon Osorio Work Phone: [facility] 04-12-2023 06:02-0500 Respiratory rate 20 /min Dr. Sharon Osorio Work Phone: [facility] 04-12-2023 06:02-0500 SaO2% (BldA) [Mass fraction] 94 % Dr. Sharon Osorio Work Phone: [facility] 04-12-2023 06:02-0500 Systolic blood pressure 151 mm[Hg] Dr. Sharon Osorio Work Phone: [facility] 01-16-2023 15:19-0400 Body mass index (BMI) [Ratio] 26.8 kg/m2 Dr. Sharon Osorio Work Phone: [facility] 01-16-2023 15:19-0400 Body temperature 97.6 [degF] Dr. Sharon Osorio Work Phone: [facility] 01-16-2023 15:19-0400 Body weight [address] Sharon Osorio Work Phone: [facility] 01-16-2023 15:19-0400 Diastolic blood pressure 78 mm[Hg] Dr. Sharon Osorio Work Phone: [facility] 01-16-2023 15:19-0400 Heart rate 76 /min Dr. Sharon Osorio Work Phone: [facility] 01-16-2023 15:19-0400 Respiratory rate 20 /min Dr. Sharon Osorio Work Phone: [facility] 01-16-2023 15:19-0400 SaO2% (BldA) [Mass fraction] 96 % Dr. Sharon Osorio Work Phone: [facility] 01-16-2023 15:19-0400 Systolic blood pressure 130 mm[Hg] Dr. Sharon Osorio Work Phone: [facility] 12-07-2022 08:38-0400 Body height 172.[address] Shraon Osorio Work Phone: [facility] 12-07-2022 08:38-0400 Body mass index (BMI) [Ratio] 26.7 kg/m2 Dr. Sharon Osorio Work Phone: [facility] 12-07-2022 08:38-0400 Body temperature 97.5 [degF] Dr. Sharon Osorio Work Phone: [facility] 12-07-2022 08:38-0400 Body weight 79.[address] Sharon Osorio Work Phone: [facility] 12-07-2022 08:38-0400 Diastolic blood pressure 76 mm[Hg] Dr. Sharon Osorio Work Phone: [facility] 12-07-2022 08:38-0400 Heart rate 78 /min Dr. Sharon Osorio Work Phone: [facility] 12-07-2022 08:38-0400 Respiratory rate 20 /min Dr. Sharon Osorio Work Phone: [facility] 12-07-2022 08:38-0400 SaO2% (BldA) [Mass fraction] 95 % Dr. Sharon Osorio Work Phone: [facility] 12-07-2022 08:38-0400 Systolic blood pressure 150 mm[Hg] Dr. Sharon Osorio Work Phone: [facility] 09-07-2022 14:58-0400 Body mass index (BMI) [Ratio] 26.2 kg/m2 Dr. Sharon Osorio Work Phone: [facility] 09-07-2022 14:58-0400 Body temperature 98.3 [degF] Dr. Sharon Osorio Work Phone: [facility] 09-07-2022 14:58-0400 Body weight 78.[address] Sharon Osorio Work Phone: [facility] 09-07-2022 14:58-0400 Diastolic blood pressure 62 mm[Hg] Dr. Sharon Osorio Work Phone: [facility] 09-07-2022 14:58-0400 Heart rate 84 /min Dr. Sharon Osorio Work Phone: [facility] 09-07-2022 14:58-0400 Respiratory rate 18 /min Dr. Sharon Osorio Work Phone: [facility] 09-07-2022 14:58-0400 SaO2% (BldA) [Mass fraction] 90 % Dr. Sharon Osorio Work Phone: [facility] 09-07-2022 14:58-0400 Systolic blood pressure 122 mm[Hg] Dr. Sharon Osorio Work Phone: [facility] 03-12-2022 15:20-0500 Diastolic blood pressure 68 mm[Hg] Dr. Sharon Osorio Work Phone: [facility] Work Phone: 03-12-2022 15:20-0500 Heart rate 65 /min Dr. Sharon Osorio Work Phone: [facility] Work Phone: 03-12-2022 15:20-0500 Respiratory rate 23 /min Dr. Sharon Osorio Work Phone: [facility] Work Phone: 03-12-2022 15:20-0500 SaO2% (BldA) [Mass fraction] 95 % Dr. Sharon Osorio Work Phone: [facility] Work Phone: 03-12-2022 15:20-0500 Systolic blood pressure 141 mm[Hg] Dr. Sharon Osorio Work Phone: [facility] Work Phone: 03-12-2022 11:04-0500 Body height 172.[address] Sharon Osorio Work Phone: [facility] Work Phone: 03-12-2022 11:04-0500 Body mass index (BMI) [Ratio] 24.7 kg/m2 Dr. Sharon Osorio Work Phone: [facility] Work Phone: 03-12-2022 11:04-0500 Body temperature 96.7 [degF] Dr. Sharon Osorio Work Phone: [facility] Work Phone: 03-12-2022 11:04-0500 Body weight 73.[address] Sharon Osorio Work Phone: [facility] Work Phone: 03-03-2022 10:15-0500 Body height 172.[address] Sharon Osorio Work Phone: [facility] Work Phone: 03-03-2022 10:15-0500 Body mass index (BMI) [Ratio] 24.7 kg/m2 Dr. Sharon Osorio Work Phone: [facility] Work Phone: 03-03-2022 10:15-0500 Body temperature 97.1 [degF] Dr. Sharon Osorio Work Phone: [facility] Work Phone: 03-03-2022 10:15-0500 Body weight 73.[address] Sharon Osorio Work Phone: [facility] Work Phone: 03-03-2022 10:15-0500 Diastolic blood pressure 65 mm[Hg] Dr. Sharon Osorio Work Phone: [facility] Work Phone: 03-03-2022 10:15-0500 Heart rate 82 /min Dr. Sharon Osorio Work Phone: [facility] Work Phone: 03-03-2022 10:15-0500 Respiratory rate 20 /min Dr. Sharon Osorio Work Phone: [facility] Work Phone: 03-03-2022 10:15-0500 SaO2% (BldA) [Mass fraction] 93 % Dr. Sharon Osorio Work Phone: [facility] Work Phone: 03-03-2022 10:15-0500 Systolic blood pressure 135 mm[Hg] Dr. Sharon Osorio Work Phone: [facility] Work Phone: 03-01-2022 11:13-0500 Body temperature 96.5 [degF] Dr. Sharon Osorio Work Phone: [facility] Work Phone: 03-01-2022 11:13-0500 Body weight 72.[address] Sharon Osorio Work Phone: [facility] Work Phone: 03-01-2022 11:13-0500 Diastolic blood pressure 84 mm[Hg] Dr. Sharon Osorio Work Phone: [facility] Work Phone: 03-01-2022 11:13-0500 Heart rate 70 /min Dr. Sharon Osorio Work Phone: [facility] Work Phone: 03-01-2022 11:13-0500 Respiratory rate 18 /min Dr. Sharon Osorio Work Phone: [facility] Work Phone: 03-01-2022 11:13-0500 SaO2% (BldA) [Mass fraction] 96 % Dr. Sharon Osorio Work Phone: [facility] Work Phone: 03-01-2022 11:13-0500 Systolic blood pressure 136 mm[Hg] Dr. Sharon Osorio Work Phone: [facility] Work Phone: 12-24-2021 10:17-0400 Body temperature 98.2 [degF] Dr. Sharon Osorio Work Phone: [facility] Work Phone: 12-24-2021 10:17-0400 Diastolic blood pressure 52 mm[Hg] Dr. Sharon Osorio Work Phone: [facility] Work Phone: 12-24-2021 10:17-0400 Heart rate 88 /min Dr. Sharon Osorio Work Phone: [facility] Work Phone: 12-24-2021 10:17-0400 Respiratory rate 16 /min Dr. Sharon Osorio Work Phone: [facility] Work Phone: 12-24-2021 10:17-0400 SaO2% (BldA) [Mass fraction] 96 % Dr. Sharon Osorio Work Phone: [facility] Work Phone: 12-24-2021 10:17-0400 Systolic blood pressure 112 mm[Hg] Dr. Sharon Osorio Work Phone: [facility] Work Phone: 12-20-2021 13:08-0400 Body temperature 98 [degF] Dr. Sharon Osorio Work Phone: [facility] Work Phone: 12-20-2021 13:08-0400 Diastolic blood pressure 62 mm[Hg] Dr. Sharon Osorio Work Phone: [facility] Work Phone: 12-20-2021 13:08-0400 Heart rate 82 /min Dr. Sharon Osorio Work Phone: [facility] Work Phone: 12-20-2021 13:08-0400 Respiratory rate 16 /min Dr. Sharon Osorio Work Phone: [facility] Work Phone: 12-20-2021 13:08-0400 SaO2% (BldA) [Mass fraction] 93 % Dr. Sharon Osorio Work Phone: [facility] Work Phone: 12-20-2021 13:08-0400 Systolic blood pressure 148 mm[Hg] Dr. Sharon Osorio Work Phone: [facility] Work Phone: 12-03-2021 11:11-0400 Body mass index (BMI) [Ratio] 25.2 kg/m2 Dr. Sharon Osorio Work Phone: [facility] Work Phone: 12-03-2021 11:11-0400 Body temperature 98.6 [degF] Dr. Sharon Osorio Work Phone: [facility] Work Phone: 12-03-2021 11:11-0400 Body weight 75.[address] Sharon Osorio Work Phone: [facility] Work Phone: 12-03-2021 11:11-0400 Diastolic blood pressure 60 mm[Hg] Dr. Sharon Osorio Work Phone: [facility] Work Phone: 12-03-2021 11:11-0400 Heart rate 75 /min Dr. Sharon Osorio Work Phone: [facility] Work Phone: 12-03-2021 11:11-0400 Respiratory rate 16 /min Dr. Sharon Osorio Work Phone: [facility] Work Phone: 12-03-2021 11:11-0400 SaO2% (BldA) [Mass fraction] 92 % Dr. Sharon Osorio Work Phone: [facility] Work Phone: 12-03-2021 11:11-0400 Systolic blood pressure 117 mm[Hg] Dr. Sharon Osorio Work Phone: [facility] Work Phone: 06-23-2021 08:42-0500 Body height 172.[address] Sharon Osorio Work Phone: [facility] Work Phone: 06-23-2021 08:42-0500 Body weight 75.[address] Sharon Osorio Work Phone: [facility] Work Phone: 06-23-2021 08:42-0500 Diastolic blood pressure 80 mm[Hg] Dr. Sharon Osorio Work Phone: [facility] Work Phone: 06-23-2021 08:42-0500 Heart rate 93 /min Dr. Sharon Osorio Work Phone: [facility] Work Phone: 06-23-2021 08:42-0500 Respiratory rate 18 /min Dr. Sharon Osorio Work Phone: [facility] Work Phone: 06-23-2021 08:42-0500 SaO2% (BldA) [Mass fraction] 99 % Dr. Sharon Osorio Work Phone: [facility] Work Phone: 06-23-2021 08:42-0500 Systolic blood pressure 131 mm[Hg] Dr. Sharon Osorio Work Phone: [facility] Work Phone: 06-17-2020 12:06-0500 Body mass index (BMI) [Ratio] 25.9 kg/m2 Dr. Sharon Osorio Work Phone: [facility] Work Phone: Encounters Encounter Date Encounter Type Care Provider Facility Start: 01-08-2025 [facility] Start: 01-07-2025 End: 01-07-2025 ambulatory [facility] [place] Start: 12-25-2024 End: 12-25-2024 ambulatory [facility] Facility:[facility] Start: 12-16-2024 amb[facility] Start: 12-16-2024 Non-patient / Non-visit Dr. Nona MARTINEZ -[facility] Start: 12-11-2024 End: 12-11-[address] Sharon Osorio MD Work Phone: -Cardiovascular Services Start: 12-11-2024 End: 12-11-[address] Sharon Osorio MD -Cardiovascular Services Work Phone: Start: 12-11-2024 End: 12-11-2024 [facility] Start: 12-03-2024 Non-patient / Non-visit Dr. Nona MARTINEZ -[facility] Work Phone: Start: 12-03-2024 End: 12-03-[address] Sharon Osorio MD Work Phone: -Pulmonary Services/Neurology Start: 12-03-2024 End: 12-03-[address] Sharon Osorio MD -Pulmonary Services/Neurology Work Phone: Start: 12-03-2024 End: 12-03-2024 ambulatory [facility] Facility:[facility] Start: 11-26-2024 End: 11-26-2024 Patient encounter procedure Sharon LAUREN -[facility] Work Phone: Start: 11-26-2024 End: 11-26-[address] Sharon Osorio MD Work Phone: -[facility] Start: 11-14-2024 End: 11-14-[address] Sharon Osorio MD Work Phone: -[facility] Start: 11-14-2024 End: 11-14-[address] Sharon Osorio MD -[facility] Work Phone: Start: 11-14-2024 End: 11-14-2024 ambulatory [facility] Facility:[facility] Start: 10-10-2024 Non-patient / Non-visit Dr. Elgin huang DO -[facility] Start: 10-10-2024 ambulatory Elgin Trujillo Facility:[facility] Start: 10-08-2024 End: 10-08-[address] Sharon Osorio MD Work Phone: -Pulmonary Services/Neurology Start: 10-08-2024 End: 10-08-2024 Patient encounter procedure Sharon LAUREN -Pulmonary Services/Neurology Work Phone: Start: 10-08-2024 End: 10-08-2024 ambulatory [facility] Facility:[facility] Start: 10-02-2024 End: 10-02-2024 Patient encounter procedure Sharon Hester GM VIDEOKatherine -[facility] Work Phone: Start: 10-02-2024 End: 10-02-[address] Sharon Osorio MD Work Phone: [facility] Work Phone: Start: 06-05-2024 End: 06-05-[address] Weston Mccarthy MD -[facility] Start: 06-05-2024 End: 06-05-2024 ambulatory Efewongbe Oleghe Facility:[facility] Start: 06-05-2024 End: 06-05-2024 Patient encounter procedure Sergio LAUREN -[facility] Work Phone: Start: 06-05-2024 End: 06-05-2024 ambulatory Efewongbe Oleghe [place] Start: 05-16-[address] Sharon Osorio MD Work Phone: [facility] Start: 05-16-2024 End: 05-16-2024 [facility] Start: 05-16-2024 End: 05-16-[facility] Start: 04-20-2023 End: 04-20-[address] Sharon Osorio Work Phone: [facility] Work Phone: Start: 04-20-2023 End: 04-20-[address] Sahron Osorio Work Phone: [facility] Work Phone: Start: 04-12-2023 End: 04-12-[address] Sharon Osorio Work Phone: [facility]-Pulmonary Medicine [facility] Work Phone: Start: 01-16-2023 End: 01-16-[address] Sharon Osorio Work Phone: [facility] Work Phone: Start: 12-12-2022 End: 12-12-[address] Sharon Osorio Work Phone: [facility] Work Phone: Start: 12-12-2022 End: 12-12-[address] Sharon Osorio Work Phone: [facility]-Laboratory, Specimen Work Phone: Start: 12-07-2022 End: 12-07-[address] [facility] Work Phone: Start: 12-01-2022 End: 12-01-[address] Sharon Osorio Work Phone: [facility] Work Phone: Start: 12-01-2022 End: 12-01-[address] Sharon Osorio Work Phone: [facility], [facility] Work Phone: Start: 09-07-2022 End: 09-07-[address] Sharon Osorio Work Phone: [facility] Work Phone: Start: 03-12-2022 End: 03-12-2022 Emergency department patient visit Dr. Sharon Osorio Work Phone: [facility]-Emergency Department Start: 03-03-2022 End: 03-03-[address] [facility] Start: 03-01-2022 End: 03-01-[address] Sharon Osorio Work Phone: [facility] Work Phone: Start: 03-01-2022 End: 03-01-[address] [facility] Start: 03-01-[address] Sharon Osorio Work Phone: [facility] Start: 03-01-2022 End: 03-01-2022 Encounter for general adult medical examination without abnormal findings Dr. Sharon Osorio Work Phone: [facility] Internal Medicine Start: 03-01-2022 End: 03-01-[address] Sharon Osorio Work Phone: [facility] Start: 12-24-2021 End: 12-24-[address] Sharon Osorio Work Phone: [facility] Start: 12-20-2021 End: 12-20-[address] Sharon Osorio Work Phone: [facility] Start: 12-03-2021 End: 12-03-[address] Sharon [facility] Start: 11-25-2021 End: 11-25-2021 Patient encounter procedure [facility] Start: 08-11-2021 ambulatory Alice Cheema RN Work Phone: [employer] Management Comment on above: Community Monitoring [employer]reach ([employer] ) Start: 07-05-2021 End: 07-05-[address] Sharon [facility] Start: 06-23-2021 End: 06-23-[address] Sharon Osorio Work Phone: [facility] Start: 03-31-2021 End: 03-31-[address] Sharon Osorio Work Phone: [facility] Start: 08-01-2018 End: 08-04-2018 Evaluation and management of inpatient JIA VICTORIA Facility:[facility] Procedures Date Procedure Procedure Detail [...] CBC W Auto Differential panel - Blood [facility] Start: 11-14-2024 Comprehensive metabolic 2000 panel - Serum or Plasma [facility] Start: 11-14-2024 Hemoglobin A1c/Hemoglobin.total in Blood [facility] Start: 08-03-2023 LIPID SCREEN LIPID SCREEN [facility] Start: 12-12-2022 Respiratory microbial culture Respiratory Culture [facility] Start: 12-12-2022 Bacteria identified in Sputum by Culture [facility] Start: 03-12-2022 Oxygen therapy [facility] Work Phone: Start: 03-12-2022 [facility] Work Phone: Start: 12-16-2021 Influenza vaccination INFLUENZA (Season Ended) [facility] Start: 08-04-2021 DIABETES SCREEN DIABETES SCREEN [facility] Start: 04-17-2021 ADVANCE DIRECTIVE DISCUSSION ADVANCE DIRECTIVE DISCUSSION [facility] Start: 07-04-2019 ANNUAL PCP TEAM CHRONIC DISEASE VISIT ANNUAL PCP TEAM CHRONIC DISEASE VISIT [facility] Start: 11-11-2018 Colonoscopy COLONOSCOPY [facility] Start: 11-11-2018 COLORECTAL CANCER SCREENING COLORECTAL CANCER SCREENING [facility] Start: 03-18-2001 Urine microalbumin profile DTAP,TDAP,TD (1 - Tdap) [facility] Start: 1999 SHINGRIX VACCINE (1 of 2) SHINGRIX VACCINE (1 of 2) [facility] Start: 1994 COLOGUARD (FIT-DNA) COLOGUARD (FIT-DNA) [facility] Start: [address] COLONOGRAPHY [facility] Start: 1994 FECAL OCCULT BLOOD FECAL OCCULT BLOOD [facility] Start: 1994 SIGMOIDOSCOPY SIGMOIDOSCOPY [facility] Start: 1967 BP CONTROLLED (<130/80) BP CONTROLLED (<130/80) [facility] Start: 1954 COVID-19 VACCINE (1) COVID-19 VACCINE (1) [facility] Acid fast bacilli culture [facility] Work Phone: Alanine aminotransfe rase [Enzymatic activity/volume] in Serum or Plasma [facility] Albumin [Mass/volume ] in Serum or Plasma [facility] Alkaline phosphatase [Enzymatic activity/volume] in Serum or Plasma [facility] Anion gap in Serum or Plasma [facility] Bacteria identified in Sputum by Culture [facility] Work Phone: Bilirubin, total measurement [facility] BUN/Creatinine ratio [facility] Calcium [Mass/volume ] in Serum or Plasma [facility] Carbon dioxide, tota l [Moles/volume] in Central venous blood [facility] Creatinine [Mass/vol ume] in Serum or Plasma [facility] Work Phone: [facility] Electrocardiographic procedure [facility] Erythrocyte mean cor puscular volume determination [facility] Glucose [Mass/volume ] in Serum or Plasma [facility] Hematocrit [Volume F raction] of Blood [facility] Hemoglobin [Mass/vol ume] in Blood [facility] Leukocytes [#/volume] in Blood [facility] Mean corpuscular hem oglobin concentration determination [facility] Mean corpuscular hem oglobin determination [facility] Measurement of renal function [facility] Measurement of respi ratory function [facility] Measurement of respi ratory function [facility] Neutrophil count [facility] Neutrophil percent differential count [facility] NM Heart Views W str ess and W radionuclide IV [facility] Patient referral [facility] Work Phone: Platelets [#/volume] in Blood [facility] Potassium measurement [facility] Red blood cell count [facility] Red cell distributio n width determination [facility] Serum chloride measurement [facility] Sodium measurement [facility] Testosterone measurement [facility] Total protein measurement [facility] Urea nitrogen [Mass/ volume] in Serum or Plasma [facility] Walking distance 6 minutes [facility] Immunizations Immunization Date Immunization Notes Care Provider Giancarlo powell 01-16-2023 influenza, injectabl e, quadrivalent, preservative free Dr. Sharon Osorio Work Phone: [facility] 03-01-2022 influenza, injectabl e, quadrivalent, preservative free Dr. Sharon Osorio Work Phone: [facility] 03-01-2022 influenza, seasonal, injectable Dr. Sharon Osorio Work Phone: [facility] 12-08-[address] Sharon Osorio Work Phone: [facility] 02-03-2020 Fluad Quad [id number](65yr up)(PF) 60 mcg (15 mcg x 4)/0.5mL IM syringe (flu vac Dr. Sharon Osorio Work Phone: [facility] Work Phone: 02-03-2020 influenza, injectabl e, quadrivalent, preservative free Dr. Sharon Osorio Work Phone: [facility] 02-03-2020 influenza, seasonal, injectable Dr. Sharon Osorio Work Phone: [facility] 01-18-2019 pneumococcal conjuga te vaccine, [address] Sharon Osorio Work Phone: [facility] 01-18-2019 pneumococcal vaccine , unspecified formulation Dr. Sharon Osorio Work Phone: [facility] Work Phone: 01-18-2019 Fluad 2019-20 65yr up(PF)45 mcg(15 mcgx3)/0.5 mL intramuscular syringe (flu vac Dr. Sharon Osorio Work Phone: [facility] Work Phone: 12-27-2017 influenza, high dose seasonal, preservative-free Alice Cheema RN Work Phone: [facility] 02-23-2016 influenza, high dose seasonal, preservative-free Alice Cheema RN Work Phone: [facility] 02-23-2016 pneumococcal conjuga te vaccine, 13 valent Alice Cheema RN Work Phone: [facility] [facility] 06-25-2014 pneumococcal polysaccharide vaccine, 23 valent Alice Cheema RN Work Phone: [facility] 06-19-2002 pneumococcal polysaccharide vaccine, 23 valent Alice Cheema RN Work Phone: [facility] Work Phone: 03-17-2001 tetanus and diphther ia toxoids, adsorbed, preservative free, for adult use (2 Lf of tetanus toxoid and 2 Lf of diphtheria toxoid) Alice Cheema RN Work Phone: [facility] Work Phone: Payers Date Payer Category Payer Self-pay [id number] 2023 Medicaid [id number] 2023 Unknown [id number] 2018 Medicare HUMANA MEDICARE HUMANA MEDICARE PPO [id number] 2018-Present [phone] [place] [address] PPO [id number] 1950 Unknown [id number] Medicare [id number] Medicare [id number] Medicare [id number] Unknown [id number] Unknown [id number] 2.840.1.805633.3.579.2.462 Unknown [id number] 2.840.1.112588.3.579.2.462 Unknown [id number] 2.16.840.1.225069.3.579.2.462 Unknown [id number] 2.16.840.1.639738.3.579.2.462 Unknown [id number] 2.16840.1.367655.3.579.2.462 Unknown [id number] 2.16.840.1.865581.3.579.2.462 Unknown [id number] 2.16.840.1.708144.3.579.2.462 Unknown [id number] 2.16.840.1.374019.3.579.2.462 Unknown [id number] 2.16.840.1.560282.3.579.2.462 Unknown [id number] 2.16.840.1.064804.3.579.2.462 Unknown [id number] 2.16.840.1.234190.3.579.2.462 Unknown [id number] 2.16.840.1.214063.3.579.2.462 Unknown [id number] 2.16.840.1.969692.3.579.2.462 Unknown [id number] 2.16.840.1.317701.3.579.2.462 Unknown [id number] 2.16.840.1.455188.3.579.2.462 Unknown [id number] 2.16.840.1.924698.3.579.2.462 Unknown [id number] 2.16.840.1.354708.3.579.2.462 Unknown [id number] 2.16.840.1.143943.3.579.2.462 Social History Date Type Detail Facility Start: 06-23-2021 End: 04-20-2023 Tobacco smoking status ILIS Unknown if ever smoked [facility] Start: 11-11-2019 Non-smoker [facility] Start: 1950 Sex Assigned At Male [facility] Start: 06-05-2024 [facility] Work Phone: Start: 01-12-1962 End: 06-10-2001 History of tobacco use Current smoker [facility] Work Phone: Start: 01-12-1962 End: 06-10-2001 History of tobacco use Cigarette Smoker 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 Start: 01-12-2018 Tobacco Comment Parents smoked in childhood home. 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 October 02 11:03am [facility] Work Phone: 1(648) 226-661206-18-2025 Evaluation note* Diagnosis Onset Date Resolution Status [...] ly 2024 2:01pm Restless leg syndrome chronic Quique y 2024 2:01pm 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 November 14, 2024 2:01pm [facility] Work Phone: 1(170) 373-385106-18-2025 Evaluation note* Diagnosis Onset Date Resolution Status [...] by GOLD classification chronic November 26 10:40am [facility] Work Phone: 1(856) 743-616202-19-2025 Evaluation note* Diagnosis Onset Date Resolution Status Admit Date COPD exacerbation chronic 2024 8:06am Shortness of breath chronic October 02, 2024 11:03am [facility] Work Phone: [phone] NoteHNO ID: [id number] Author: Alice Cheema RN Service: ? Author Type: Registered Nurse Type: Progress Notes Filed: 08/11/2021 2:12 PM Note Text: [facility] Enrollment Provider Action/FYI: No PCP Patient referred by: [facility] Eddie Contact made with patient: Patient not outreached at this time. Closing: Patient does not meet criteria. PCC to reassess patient in a month. [facility] History of Present illness Narrative* Alice Cheema RN - 08/11/2021 2:11 PM EDT [facility] Enrollment Provider Action/FYI: No PCP Patient referred by: [facility] Eddie Contact made with patient: Patient not outreached at this time. Closing: Patient does not meet criteria. PCC to reassess patient in a month. END OUTREACH documented [facility] NotePatient Outreach ([facility]) ALVINANITA ([id number]) 1950 M Date Time Provider Department 08/11/21 ALICE CHEEMA During your visit today, we recorded the following information about you: Alice Cheema RN 08/11/2021 2:12 PM Signed orderbolt CD Enrollment Provider Action/FYI: No PCP Patient referred by: [facility] Eddie Contact made with patient: Patient not outreached at this time. Closing: Patient does not meet criteria. PCC to reassess patient in a month. END OUTREACH Allergies As of Date: 08/11/2021 (No Known Allergies) Date Reviewed: 08/01/2018 Reviewed by: Cinda KnappRn) JANICE Rush - Fully Assessed Reason for Visit: Community Monitoring Outreach [Other] Cmt: Aguilar PARKS Prescriptions as of 08/11/2021 - TRELEGY ELLIPTA [...] [I31.3] 08/01/2018 08/04/2018 Coronary artery disease of [place] artery with s*08/01/2018 08/04/2018 HTN (hypertension) [I10] 08/01/2018 COPD (chronic obstructive pulmonary disease) (H*08/08/2005 Encounter Status:Closed by ALICE CHEEMA on 08/11/21[facility] 08-26-2020 NoteHNO ID: [id number] Author: Teo De La Cruz RN Service: ? Author Type: Registered Nurse Type: Progress Notes Filed: 08/26/2020 1:42 PM Note Text: [facility] Enrollment Provider Action/FYI: NO PCP Patient referred by: PCC/PCP referral Contact made with patient: Patient not outreached at this time. Closing: Patient does not meet criteria. PCC to reassess patient in a month. [facility] NotePatient Outreach ([facility]) ANITA GUZMAN ([id number]) 1950 M Date Time Provider Department 08/26/20 [...] [I31.3] 08/01/2018 08/04/2018 Coronary artery disease of [place] artery with s*08/01/2018 08/04/2018 HTN (hypertension) [I10] 08/01/2018 COPD (chronic obstructive pulmonary disease) (H*08/08/2005 Encounter Status:Closed by TEO DE LA CRUZ on 08/26/20[facility] 08-01-2018 History of Past illness Narrative* Problem Noted Date Resolved Date Angina pectoris, crescendo 08/01/201808/04 S/P drug eluting coronary stent placement 201808/04/2018 Pericardial effusion 08/01/2018 08/04/2018 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 for [facility] Narrative* Chief Complaint SMOKER 6 M FU COVID POSITIVE/WANTS MEDS COVID-19 MED REFILL 3 M FU Reason for Visit Stage 3 severe COPD by GOLD classification COVID-19 Encounter for screening for COVID-19 Encounter for preventative adult health care examination Restless leg syndrome Atherosclerosis of coronary artery of [place] heart without angina pectoris Essential hypertension Stage 3 severe COPD by GOLD classification Smoking greater than 40 pack years Stage 3 severe COPD by GOLD classification [facility] Work Phone: Chief complaint+Reason for visit Narrative* Chief Complaint SMOKER 6 M FU COVID POSITIVE/WANTS MEDS COVID-19 MED REFILL 3 M FU DIZZINESS Reason for Visit Stage 3 severe COPD by GOLD classification COVID-19 Encounter for screening for COVID-19 Encounter for preventative adult health care examination Restless leg syndrome Atherosclerosis of coronary artery of [place] heart without angina pectoris Essential hypertension Stage 3 severe COPD by GOLD classification Smoking greater than 40 pack years Stage 3 severe COPD by GOLD classification [facility] Work Phone: Evaluation note* Diagnosis Onset Date Resolution Status 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 Atherosclerosis of coronary artery of [place] heart without angina pectoris chronic Essential hypertension chron ic Hyperlipidemia chronic Presence of stent in coronary artery August 01, 2018 chronic [facility] Work Phone: Evaluation noteNo assessment information available [facility] Work Phone: Evaluation note* Diagnosis Onset Date Resolution Status 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 COVID-19 acute Encounter for screening for COVID-19 acute Encounter for preventative a [facility] examination acute Restless leg syndrome acute Atherosclerosis of coronary artery of [place] heart without angina pectoris chronic Essential hypertension chron ic 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 Smoking greater than 40 pack years chronic Stage 3 severe COPD by GOLD classification [facility] Work Phone: Evaluation note* Diagnosis Onset Date Resolution Status Emphysema with both acute and chronic bronchitis acute [facility] Work Phone: Evaluation note* Diagnosis Onset Date Resolution Status Emphysema with both acute and chronic bronchitis acute 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 Smoking greater than 40 pack years chronic Stage 3 severe COPD by GOLD classification [facility] Work Phone: Evaluation note* Diagnosis Onset Date Resolution Status Flu vaccine need acute Essential hypertension chron ic Hyperlipidemia chronic Restless leg syndrome chroni c 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 Benign prostatic hyperplasia chronic Essential hypertension chron ic Hyperlipidemia chronic Restless leg syndrome chroni c Stage 3 severe COPD by GOLD classification [facility] Work Phone: Reason for referral (narrative)No reason for referral [facility] Work [facility]: Summary Purpose Family History No [...] No March 3:49pm Living Will No March 30, 021 3:49pm Power of Community Service Representative No March 30, 2021 3:49pm Documents on File Type Date Recorded Patient Desktop Support Manager Expl anation Advance Directive(s) Advance Directive(s) 08/01/2018 6:27 AM Advance Directive Response Recorded Date/ Time Advance Directives No March 2:49pm Living Will No March 30 021 2:49pm Power of Community Service Representative No March 30, 2021 2:49pm Advance Directive Response Recorded Date/ Time Advance Directives No March 2:49pm Living Will No March 12 022 11:27am Power of Community Service Representative No March 12, 2022 11:27am Advance Directive Response Recorded Date/ Time Advance Directives No November 14 1:41pm Living Will No November 14, 2022 1:41pm Power of Community Service Representative No November 14 1:41pm Advance Directive Response Recorded Date/ Time Advance Directives No November 14 12:41pm Living Will No November 14, 2022 12:41pm Power of Community Service Representative No November 14 12:41pm Advance Directive Response Recorded Date/ Time Advance Directives No May 3:28pm Hospital Course Note HNO ID: [id number] Author: Diya Weldon Service: Cardiovascular Medicine Author Type: Resident [...] GOLD classification Atherosclerosis of coronary artery of [place] heart without angina pectoris Essential hypertension Hyperlipidemia [...] 2024 2:01pm Chronic hypoxic respiratory failure Augu 2024 10:40am Smoking greater than 40 pack [...] section and content) DATE CREATED AUTHOR 08/04/2018 [facility] DATE CREATED AUTHOR AUTHOR'S ORGANIZ ATION 09/05/2018 [facility] DATE CREATED AUTHOR AUTHOR'S ORGANIZ ATION 08/14/2021 [facility] DATE CREATED AUTHOR AUTHOR'S ORGANIZ ATION [facility] (unrecognized section and content) Goals may [...] or prosecute any alcohol or drug abuse patient.[facility] Reason for Visit (unrecogniz ed section [...] MD Primary Care Provider Active Sharon Hester GM VIDEO, GM VIDEO-C Attending Provider, Referrin g Provider Active Team Status: Inactive Member Role Status Dates Dr. Sharon Osorio MD Primary Care Provider, Refer ring Provider Active Sharon Hester GM VIDEO, GM VIDEO-C Attending Provider Active Team Status: Inactive Member [...] 2024 End: October 02, 2024 Sharon Hester GM VIDEO, GM VIDEO-C Attending Provider Active Start: October 02, 2024 [...] 2024 End: October 02, 2024 Sharon Hester GM VIDEO, GM VIDEO-C Attending Provider Active Start: October 02, 2024 End: October 02, 2024 Team Status: Inactive Member Role/Relationship Status Dates Dr. Sharon Osorio MD Primary Care Provider Active Start: October 08, 2024 End: October 08, 2024 Sharon Hester GM VIDEO, GM VIDEO-C Attending Provider Active Start: October 08, 2024 End: October 08, 2024 Sharon Hester GM VIDEO, GM VIDEO-C Referring Provider Active Start: October 08, 2024 End: October 08, 2024 Team Status: Active Member Role/Relationship Status Dates Dr. Sharon Osorio MD Primary Care Provider Active Start: October 10, 2024 Sharon Hester GM VIDEO, GM VIDEO-C Referring Provider Active Start: October 10, 2024 Sharon Hester GM VIDEO, GM VIDEO-C Other Provider Active Start: October 10, 2024 [...] 2024 End: November 26, 2024 Sharon Hester GM VIDEO, GM VIDEO-C Attending Provider Active Start: November 26, 2024 [...] BE BASED ON THE PRIMARY CLINICAL RECORDS. [facility] [employer] provides no warranty or guarantee of the accuracy or completeness of information in this document.
== END | disposition home or self-care (01) ==
LOC: LABSPEC 07:12
PROVIDERS: PCP Internal Medicine; Referring Provider Nurse Practitioner Acute Care; Visit Provider Nurse Practitioner Acute Care
DX: J44.1 Chronic obstructive pulmonary disease with (acute) exacerbation (principal)
CPT/HCPCS: 87070; 87077; 87186; 87205

== ENCOUNTER 2025-01-20 09:11 | Emergency (ER) | payer MEDICARE, MEDICAID, SELFPAY ==
[2025-01-20 09:12] VITALS: BP 164/150; PULSE 78; RESP 22; TEMP 36.5; O2SAT 94; BMI 25.2
--- NOTE | 2025-01-20 09:23 | EKG12_ITS ---
Test Reason : SOB Blood Pressure : */* mmHG Vent. Rate : 70 BPM Atrial Rate : 70 BPM P-R Int : 148 ms QRS Dur : 140 ms QT Int : 416 ms P-R-T Axes : 77 59 59 degrees QTcB Int : 449 ms Normal sinus rhythm Right bundle branch block Abnormal ECG Confirmed by JANES MARTINEZ, EASTON ([id number]), tape editor VANCE PAIGE ([id number]) on 01/22/2025 1:19:18 PM Referred By: ANGI Confirmed By: EASTON MARRERO MD
--- NOTE | 2025-01-20 09:24 | EX.ED.DYSGE1 ---
HPI History of Present Illness Chief Complaint: Shortness of Breath Detail of Chief Complaint: Dyspnea with productive cough colored sputum with blood streaks Informant: patient Onset/Context/Timing Onset: Today (Today noted change in sputum with blood) Context: Sudden Onset Timing: - (Occurred once) Quality: Stage III COPD per Gold classification Location: Pulmonary Current Severity: Essentially at baseline Worsened by: Activity Relieved by: Rest Associated Symptoms Associated Symptoms: No history of VTE. Denies leg pain, swelling discoloration Narrative Narrative: Patient is a 74-year-old male with stage III severe COPD by Gold classification who was sent in by his primary care physician because of colored sputum with streaks of blood. Patient was recently seen by Sharon Cantrell at the pulmonary office. He was seen January 07, 2025. Her office note was reviewed. Diagnosis was severe stage III COPD by Gold classification, smoking greater than 40 pack years and chronic hypoxia/respiratory failure. Patient had a CT of the lungs December 25, 2024. Report was reviewed. Revealed no significant abnormality. Patient had a stress report authored December 11, 2024. He exercised according to the Lexiscan for 1 minute. Achieving a work level max METS of 1.00. Resting heart rate was 68. More to a maximum 93. This value represented 64% of the maximum age-predicted heart rate. The study was stopped due to completion of the Lexiscan protocol. There was no evidence of inducible ischemia. Sputum revealed Bordetella and Staph aureus. Patient was prescribed levofloxacin. Patient had sputum culture sent off January 10. The Bordetella was sensitive and the Staph aureus was intermittent. Patient was seen by his primary care physician. He was sent in because of brown-colored sputum with yellow streaks as well as blood streaks. He denies history of VTE. He denies pleuritic chest pain. He denies increased shortness of breath from baseline at rest or activity. He denies leg pain, swelling or discoloration. Presently he denies wheezing. He denies fever, chills night sweats. He denies weight gain or weight loss. He denies upper respiratory tract infectious symptoms i.e. rhinorrhea, congestion, postnasal drainage with sore throat. He denies abdominal pain, nausea, vomit or diarrhea. He denies urologic symptoms. Recent Illness/Hospitalization: Yes [facility] Medical History Borderline type 2 diabetes mellitus Erectile dysfunction COPD exacerbation Health care maintenance Asthmatic bronchitis with exacerbation Blood glucose elevated Swallowing disorder Acute bronchitis, unspecified Emphysema with both acute and chronic bronchitis Restless leg syndrome Encounter for preventative adult health care examination Abdominal pain Flu vaccine need Insomnia COVID-19 vaccine series completed GERD (gastroesophageal reflux disease) Abdominal pain Stage 3 severe COPD by GOLD classification Shingles (herpes zoster) polyneuropathy neck and back pain Asthma Shoulder pain Shortness of breath Arthritis Depression with anxiety Benign prostatic hyperplasia Coronary artery disease Colon enlargement Atherosclerosis of coronary artery of saxman heart without angina pectoris Essential hypertension Cardiac tamponade (07/29/18) Abnormal stress test (~06/30/18) Hyperlipidemia History of depression History of anxiety History of restless legs syndrome Emphysema of lung History of erectile dysfunction Home Medications ?Medication ?Instructions ?Recorded ?Last Taken ?Type aspirin 81 mg tablet,delayed 81 mg PO DAILY 08/06/18 01/19/25 History release (Adult Aspirin Regimen) diazepam 2 mg tablet 2 mg PO TID PRN PRN Vertigo #10 03/12/22 01/19/25 Rx TABLETS Disability Placard #1 ea 03/16/23 Unknown Rx furosemide 40 mg tablet 40 mg PO DAILY #90 tabs 04/04/23 01/19/25 Rx trazodone 50 mg tablet See Rx Instructions .Route 11/28/23 01/19/25 Rx .COMPLEX #90 tabs isosorbide mononitrate 30 mg 15 mg (1/2 x 30 mg) PO DAILY #45 01/08/24 01/19/25 Rx tablet,extended release 24 hr tabs gabapentin 400 mg capsule 400 mg PO TID #90 caps 02/19/24 01/19/25 Rx montelukast 10 mg tablet 10 mg PO QPM #90 tabs 03/18/24 01/19/25 Rx atorvastatin 40 mg tablet 40 mg PO DAILY #90 tabs 03/30/24 01/19/25 Rx dutasteride 0.5 mg capsule 0.5 mg PO DAILY #90 caps 09/20/24 01/19/25 Rx ferrous sulfate 325 mg (65 mg 325 mg PO QDAY 10/02/24 01/19/25 History iron) tablet (FeroSul) albuterol sulfate 2.5 mg/3 mL 2.5 mg (3 mL) inhalation Q4H PRN 10/07/24 01/20/25 Rx (0.083 %) solution for nebulization Sob &/Or Wheezing #180 mL albuterol sulfate 90 mcg/actuation 2 inh inhalation Q4H PRN shortness 10/28/24 01/20/25 Rx aerosol inhaler (Ventolin HFA) of breath or wheezing #8.5 grams alfuzosin 10 mg tablet,extended 10 mg PO DAILY #90 tabs 10/31/24 01/19/25 Rx release 24 hr amlodipine 10 mg tablet 10 mg PO DAILY #90 tabs 10/31/24 01/19/25 Rx pramipexole 0.25 mg tablet 0.25 mg PO QHS #90 tabs 01/08/25 01/19/25 Rx budesonide 160 mcg-glycopyr 9 2 inh inhalation BID 01/20/25 01/20/25 History mcg-formot 4.8 mcg/actuation HFA inhaler (Breztri Aerosphere) cetirizine 10 mg tablet 10 mg PO QHS 01/20/25 01/19/25 History doxycycline monohydrate 100 mg 100 mg PO BID #14 CAPSULES 01/20/25 Unknown Rx capsule Allergy/AdvReac Type Severity Reaction Status Date / Time No Known Allergies Allergy Verified 01/20/25 09:12 Family History Mother Cancer leukemia Father Heart disease Myocardial infarction Sister COPD (chronic obstructive pulmonary disease) Brother COPD (chronic obstructive pulmonary disease) Cancer liver Surgical History History of open reduction and internal fixation (ORIF) procedure S/P pericardiocentesis (08/01/18) Presence of stent in coronary artery (08/01/18) History of ankle surgery (~2008) History of colonoscopy Social History Smoking Status: Former smoker quit date: 05/18/01 Tobacco: How many years used: 40 alcohol intake: former details: 2000 substance use type: former substance user Date of last use: marijuana currently, other drugs quit in 2008, marijuana, crack/cocaine, 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 caffeine: Yes Type: coffee Number of servings: 2 what type of physical activity do you participate in: none ROS ROS ED Constitutional Constitutional ED: Denies chills, fever(s), subjective, sweats or weight loss Eyes Eyes: Denies blurry vision or change in vision ENT ENT ED: Denies ear pain, rhinorrhea or sore throat Cardiovascular Cardiovascular: Denies chest pain, orthopnea, palpitations, paroxysmal nocturnal dyspnea or racing heartbeat Respiratory/Chest Respiratory/Chest: Reports cough, dyspnea, dyspnea on exertion and sputum; Denies orthopnea or paroxysmal nocturnal dyspnea Gastrointestinal Gastrointestinal: Denies abdominal pain, melena, nausea or vomiting Musculoskeletal Musculoskeletal: Denies arthralgias, back pain, myalgias or neck pain Integumentary Denies rash Neurologic Neurologic: Denies headache(s), paresthesias or weakness Endocrine Endocrinology: Denies cold intolerance or heat intolerance EXAM Physical Exam Const Vital Signs: 01/20/25 09:12 01/20/25 09:26 Temperature 97.7 F L Temperature Source Temporal Pulse Rate 78 Respiratory Rate 22 H Respiratory Effort Short of Breath Respiratory Pattern Normal Blood Pressure 164/150 H Blood Pressure Mean 154 Pulse Ox 94 Oxygen Delivery Method Room Air Room Air Vital signs are remarkable for tachypnea. He is not hypoxic on room air. Positive well nourished and well developed Constitutional Narrative: Bruno is tachypneic. There is no use of accessory muscles or retractions. General Appearance ED: well developed; Negative for pallor HEENT Reports moist mucous membranes HEENT Narrative: Head is atraumatic and normocephalic. Ears normal. Nares patent. Posterior pharynx is normal. Eyes PERRL and EOMs intact bilaterally General Eye ED: Negative for pale conjunctiva or scleral icterus Neck no lymphadenopathy, supple and no JVD Chest Wall inspection of chest normal and palpation of chest normal Resp normal respiratory effort and clear to auscultation bilaterally Resp Narrative: Breath sounds are diminished on the right side compared to left. There is no wheezing, rales or rhonchi noted. Cardio regular rate, regular rhythm, S1 normal heart sound, S2 normal heart sound and no murmurs GI normal to inspection, nondistended, normoactive bowel sounds, non-tender, non-distended and no masses; Negative for hepatosplenomegaly Extremity normal to inspection Extremity Narrative: There is no asymmetry, swelling, discoloration, leg vein distention, palpable cords or tenderness along the distribution of the deep venous system. Neuro oriented x3 and CN's II-XII intact bilaterally Sensorium / Orientation: alert Psych mental status grossly normal Skin no rashes or lesions noted, no wounds and skin turgor normal General Skin Exam: elasticity normal; Negative for jaundice or pallor MDM MDM MDM Narrative Medical decision making narrative: Differential diagnosis would include pneumothorax since there is agreed creased breath sounds on the right. Also need to consider pneumonia, with blood streaks noted in sputum 1 needs to consider pulmonary embolus. Symptoms are not consistent with pulmonary embolus. Suspect this is due to incomplete/inadequate antibiotic coverage for his most recent sputum specimen based on sensitivity results. To evaluate patient's presentation we will obtain chest x-ray, EKG to assess for dysrhythmia and and determine if there is evidence of heart strain which would increase possibility of pulmonary embolus. Presentation not consistent with cardiac ischemia. Furthermore he had recent outpatient workup for chest pain and cardiac cause was excluded. History & Record Review Additional record(s) reviewed:: Prior outpatient record (Documented HPI narrative) and Prior labs Lab Data Attestation: I reviewed the patient's lab results. Lab results narrative: White count is unremarkable. Competence of metabolic panel with slight elevation of the AST. This is been elevated in the past. Labs: Laboratory Results - last 24 hr 01/20/25 09:34 WBC 8.7 RBC 5.18 Hgb 15.4 Hct 43.8 MCV 84.6 MCH 29.7 MCHC 35.2 RDW Std Deviation 43.9 RDW Coeff of Michelle 14.2 Plt Count 231 MPV 10.0 Immature Gran % (Auto) 0.600 Neut % (Auto) 68.7 Lymph % (Auto) 16.8 L [place] % (Auto) 10.9 H Eos % (Auto) 2.5 Baso % (Auto) 0.5 Absolute Neuts (auto) 6.0 Absolute Lymphs (auto) 1.46 Nucleated RBC % 0 Sodium 139 Potassium 3.7 Chloride 105 Carbon Dioxide 21.6 Anion Gap 12 BUN 13 Creatinine 0.84 Estim Creat Clear Calc 73.51 Est GFR (MDRD) Non-Af 91 BUN/Creatinine Ratio 15.4 Glucose 118 H Lactic Acid 1.4 Calcium 9.2 Total Bilirubin 0.73 AST 48 H ALT 41 Alkaline Phosphatase 73 Total Protein 6.7 Albumin 4.1 Globulin 2.7 Albumin/Globulin Ratio 1.5 Radiography Chest X-Ray - ED: 2 View and Read by ED Physician (Chronic changes noted. There is concern for increased interstitial markings left lower lobe compared to June 05, 2024. Cardiac silhouette size normal. Hilum normal. Osseous structures were no acute process.) Diagnostic Testing: Clinical Impression(s) from Imaging Studies Chest X-Ray 01/20/25 09:35 IMPRESSION: Extensive chronic lung changes and hyperinflation again noted. Superimposed upon this is seen a moderate-sized area of left lower lobe airspace disease, concerning for the presence of PNEUMONITIS. No pleural effusion or pneumothorax is seen. The cardiomediastinal silhouette is stable, without evidence of cardiomegaly. No interval osseous change is seen. Reading Location: [place] [id number] EKG Initial EKG: Attestation: I personally reviewed and interpreted this EKG as follows: Interpretation: Sinus Rhythm (Rate is 70. There is evidence of a right bundle branch block. This was noted on prior EKG that was dated December 03, 2024. MA interval is under 48 ms. QRS duration 140 ms. QT duration 416 ms. The EKG is abnormal. There is no acute ischemic changes.) Treatment and Re-Evaluation :: Patient was informed of his laboratory results and chest x-ray results. Her 65 score is 1. This makes patient low risk. PSI/port score is 75. This is class III. Inpatient patient treatment is clinical judgment. Since patient is at baseline does not have a white count will treat as outpatient. This may be a staph infection based on most recent culture and sensitivity and the fact that the antibiotic he was placed on did not cover the staph organism. Therefore, we will treat with doxycycline. Discharge Plan Triage Chief Complaint: Shortness of Breath Other Complaint: Cough ED Provider: Quentin Spangler Dx/Rx/DC Orders Clinical Impression: Left lower lobe pneumonia, Cough with hemoptysis, Stage 3 severe COPD by GOLD classification, Borderline type 2 diabetes mellitus, Hyperlipidemia, Atherosclerosis of coronary artery of saxman heart without angina pectoris, Essential hypertension Instructions: ED Pneumonia (Adult) Prescriptions: New doxycycline monohydrate 100 mg capsule 100 mg PO BID Qty: 14 0RF No Action aspirin [Adult Aspirin Regimen] 81 mg tablet,delayed release (DR/EC) 81 mg PO DAILY ferrous sulfate [FeroSul] 325 mg (65 mg iron) tablet 325 mg PO QDAY diazepam [diazepam] 2 MG tablet 2 mg PO TID PRN PRN (Reason: Vertigo) Qty: 10 0RF cetirizine 10 mg tablet 10 mg PO QHS Breztri Aerosphere 160-9-4.8 mcg/actuation HFA aerosol inhaler 2 inh inhalation BID (DME) Disability Placard See Rx Instructions .ROUTE .MEDSUPPLY Qty: 1 0RF Rx Instructions: Expires in 5 years furosemide 40 mg tablet 40 mg PO DAILY Qty: 90 3RF trazodone 50 mg tablet See Rx Instructions .ROUTE .COMPLEX Qty: 90 1RF Dose Instruction: take 1 tablet by mouth at bedtime if needed Patient Comments: pt states he takes 1/2 of 50mg tablet Rx Instructions: take 1 tablet by mouth at bedtime if needed isosorbide mononitrate 30 mg tablet extended release 24 hr 15 mg PO DAILY Qty: 45 3RF gabapentin 400 mg capsule 400 mg PO TID Qty: 90 3RF Patient Comments: pt states he only takes it once daily montelukast 10 mg tablet 10 mg PO QPM Qty: 90 1RF atorvastatin 40 mg tablet 40 mg PO DAILY Qty: 90 3RF dutasteride 0.5 mg capsule 0.5 mg PO DAILY Qty: 90 1RF albuterol sulfate 2.5 mg /3 mL (0.083 %) solution for nebulization 2.5 mg INHALATION Q4H PRN (Reason: Sob &/Or Wheezing) Qty: 180 3RF albuterol sulfate [Ventolin HFA] 90 mcg/actuation HFA aerosol inhaler 2 inh inhalation Q4H PRN (Reason: shortness of breath or wheezing) Qty: 8.5 11RF alfuzosin 10 mg tablet extended release 24 hr 10 mg PO DAILY Qty: 90 0RF Patient Comments: pt states he takes something for his prostate but unsure what the medication is called. amlodipine 10 mg tablet 10 mg PO DAILY Qty: 90 0RF pramipexole 0.25 mg tablet 0.25 mg PO QHS Qty: 90 1RF Primary Care Provider: Sharon Osorio Referrals: Sharon Osorio MD [Primary Care Provider, Internal Medicine] - 3-5 Days Print Language: [place] Disposition Disposition: Home, Self Care
[2025-01-20 09:26] VITALS: O2SAT 98
--- NOTE | 2025-01-20 09:35 | RAD_ITS ---
PROCEDURE: CHEST PA AND LATERAL 01/20/2025 REASON FOR EXAM: PRODUCTIVE COUGH OF COLORED SPUTUM WITH BLOOD STRE TECHNIQUE: Procedure Code: RADCXR Modality: DX Procedure: CHEST PA AND LATERAL COMPARISON: PA and lateral chest of 06/05/2024. RAD/Chest PA and Lateral IMPRESSION: Extensive chronic lung changes and hyperinflation again noted. Superimposed up on this is seen a moderate-sized area of left lower lobe airspace disease, concerning for the presence of PNEUMONITIS. No pleural effusion or pneumothorax is seen. The cardiomediastinal silhouette is stable, without evidence of cardiomegaly. No interval osseous change is seen. Reading Location: [place] [address]
[2025-01-20 09:51] LABS: Hematocrit 43.8 % (40-54); Hemoglobin 15.4 g/dL (13.0-16.5); Immature Granulocytes Count 0.050 X10^3/uL (0.0-0.0); Mean Corp Hgb Conc 35.2 g/dL (32-36); Mean Corpuscular Volume 84.6 fL (80-94); Mean Platelet Vol. 10.0 fl (6.2-12.0); NRBC Flagged by Analyzer 0 % (0-5); Platelet Count 231 K/mm3 (150-450); RBC Distribution Width CV 14.2 % (11.6-14.6); RBC Distribution Width SD 43.9 fl (35.1-43.9); Red Blood Count 5.18 M/mm3 (4.6-6.2); White Blood Count 8.7 K/mm3 (4.4-11.0)
[2025-01-20 10:11] LABS: AST(SGOT) 48 U/L (<=37); Alanine Aminotransfer ALT/SGPT 41 U/L (<=46); Albumin, Serum 4.1 g/dL (3.4-4.8); Alkaline Phosphatase 73 U/L (40-129); Anion Gap 12 (5-15); BUN 13 mg/dL (4-19); BUN/Creat Ratio 15.4 RATIO (10-20); Calcium,Total 9.2 mg/dL (7.6-11.0); Carbon Dioxide 21.6 mmol/L (21.0-32.0); Chloride 105 mmol/L (98-108); Estimated Creatinine Clearance 73.51 ml/min (50-250); Globulin 2.7 g/dL (2.2-4.2); Glucose 118 mg/dL (70-99); Potassium 3.7 mmol/L (3.3-5.1)
[2025-01-20 10:56] VITALS: BP 137/82; PULSE 60; RESP 18; TEMP 36.8; O2SAT 100
== END 2025-01-20 10:57 | disposition home or self-care (01) ==
PROVIDERS: Emergency Provider Emergency Medicine; PCP Internal Medicine; Visit Provider Emergency Medicine
DX: J18.9 Pneumonia, unspecified organism (principal); J43.9 Emphysema, unspecified; E11.9 Type 2 diabetes mellitus without complications; R09.02 Hypoxemia; E78.5 Hyperlipidemia, unspecified; I10 Essential (primary) hypertension; Z87.891 Personal history of nicotine dependence; I25.10 Atherosclerotic heart disease of native coronary artery without angina pectoris; R04.2 Hemoptysis
CPT/HCPCS: 71046; 80053; 83605; 85025; 93005; 99284; A4216

== ENCOUNTER → 2025-02-10 | Outpatient (CLI) | payer MEDICARE, SELFPAY ==
--- NOTE | 2025-02-10 08:54 | AAAS_ITS ---
Reason For Study Reason For Study: Screening Aorta Measurements Aorta Doppler Measurements Proximal aorta measures2.14 x 2.12cm. in cross-sectional Peak systolic flow velocities within the proximal aorta axis. measure 90.4 cm/sec. Proximal aorta measures2.14cm. in longitudinal axis. Peak systolic flow velocities within the mid aorta measure Mid aorta measures1.42 x 1.42cm. in cross-sectional axis. 109.5 cm/sec. Mid aorta measures1.48cm. in longitudinal axis. Peak systolic flow velocities within the distal aorta Distal aorta measures1.31 x 1.29cm. in cross-sectional axis.measure 116.1 cm/sec. Distal aorta measures1.30cm. in longitudinal axis. Left Iliac Artery Left iliac artery measures 0.77 x 0.77 cm. in the cross-sectional axis. Left iliac artery measures 0.79 cm. in the longitudinal axis. Peak systolic velocity in the left iliac artery measures 152.7 cm/sec. Right Iliac Artery Right iliac artery measures 0.71 x 0.75 cm. in the cross-sectional axis. Right iliac artery measures 0.72 cm. in the longitudinal axis. Peak systolic velocity in the right iliac artery measures 296.7 cm/sec. VL/AAA Screening Interpretation Summary Aorta patent, normal caliber. Right iliac artery normal caliber with >50% stenosis. Left iliac artery patent, normal caliber. Ordering Physician: Leighann Simpson Referring Physician: Sharon Osorio Performed By: Meka Sosa RVT
== END | disposition home or self-care (01) ==
PROVIDERS: PCP Internal Medicine; Referring Provider Internal Medicine Cardiovascular Disease; Visit Provider Internal Medicine Cardiovascular Disease
DX: J44.0 Chronic obstructive pulmonary disease with (acute) lower respiratory infection (principal); J44.1 Chronic obstructive pulmonary disease with (acute) exacerbation; J20.9 Acute bronchitis, unspecified; R04.2 Hemoptysis; R06.02 Shortness of breath; I25.10 Atherosclerotic heart disease of native coronary artery without angina pectoris
CPT/HCPCS: 76706

== ENCOUNTER 2025-02-21 11:28 | Emergency (ER) | payer MEDICARE, MEDICAID, SELFPAY ==
[2025-02-21 11:32] VITALS: BP 113/60; PULSE 65; RESP 20; TEMP 36.3; O2SAT 96; BMI 25.6
--- NOTE | 2025-02-21 12:24 | EKG12_ITS ---
Test Reason : SYNCOPE
[2025-02-21 12:32] LABS: Hematocrit 43.0 % (40-54); Hemoglobin 14.5 g/dL (13.0-16.5); Immature Granulocytes Count 0.060 X10^3/uL (0.0-0.0); Mean Corp Hgb Conc 33.7 g/dL (32-36); Mean Corpuscular Volume 86.7 fL (80-94); Mean Platelet Vol. 9.8 fl (6.2-12.0); NRBC Flagged by Analyzer 0 % (0-5); Platelet Count 254 K/mm3 (150-450); RBC Distribution Width CV 13.7 % (11.6-14.6); RBC Distribution Width SD 43.8 fl (35.1-43.9); Red Blood Count 4.96 M/mm3 (4.6-6.2); White Blood Count 9.4 K/mm3 (4.4-11.0)
[2025-02-21 12:50] VITALS: BP 113/62; PULSE 69; RESP 20; TEMP 36.6; O2SAT 100
[2025-02-21 12:52] VITALS: BP 107/62; BP 113/62; BP 114/74; PULSE 67; PULSE 77
--- NOTE | 2025-02-21 12:52 | RAD_ITS ---
PROCEDURE: RAD/Chest PA and Lateral
[2025-02-21] MEDS: 0.9% Normal Saline (1000mL) 1,000 ML 999 ML IV (12:55)
[2025-02-21 13:12] LABS: Pro- Brain NATRIURETIC PEPTIDE 263 pg/mL (<=1800); Troponin T High Sensitivity 22 ng/L (<=22)
[2025-02-21 13:20] LABS: Anion Gap 10 (5-15); BUN 20 mg/dL (4-19); BUN/Creat Ratio 20.5 RATIO (10-20); Calcium,Total 9.6 mg/dL (7.6-11.0); Carbon Dioxide 22.2 mmol/L (21.0-32.0); Chloride 105 mmol/L (98-108); Estimated Creatinine Clearance 62.37 ml/min (50-250); Glucose 114 mg/dL (70-99); Potassium 4.5 mmol/L (3.3-5.1)
[2025-02-21 14:15] VITALS: O2SAT 91
--- NOTE | 2025-02-21 14:30 | ED.RN ---
Pox on ra [address] %. Dr Eagle notified.
--- NOTE | 2025-02-21 14:47 | EX.ED.DYSGE1 ---
HPI History of Present Illness Chief Complaint: Syncope Narrative Narrative: Patient is a 74-year-old male with past medical history of substance abuse, borderline type 2 diabetes, COPD has at home oxygen as needed does not wear this all the time he states, depression, anxiety, CAD who presented to the emergency department the chief complaint of almost passing out. 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 He states that he had an appointment upstairs with them and he went up there and was evaluated. He states that when he was checking out he was standing in line and noted that he became very lightheaded and felt like he may pass out therefore he sat down. He states he did not pass out he denies any chest pain associated with this or shortness of breath. Here in the emergency department the patient states that he is feeling better and back to his baseline. [facility] Medical History Substance abuse On home oxygen therapy Former smoker Borderline type 2 diabetes mellitus Erectile dysfunction COPD exacerbation Health care maintenance Asthmatic bronchitis with exacerbation Blood glucose elevated Swallowing disorder Acute bronchitis, unspecified Emphysema with both acute and chronic bronchitis Restless leg syndrome Encounter for preventative adult health care examination Abdominal pain Flu vaccine need Insomnia COVID-19 vaccine series completed GERD (gastroesophageal reflux disease) Abdominal pain Stage 3 severe COPD by GOLD classification Shingles (herpes zoster) polyneuropathy neck and back pain Asthma Shoulder pain Shortness of breath Arthritis Depression with anxiety Benign prostatic hyperplasia Coronary artery disease Colon enlargement Atherosclerosis of coronary artery of [place] heart without angina pectoris Essential hypertension Cardiac tamponade (07/29/18) Abnormal stress test (~06/30/18) Hyperlipidemia History of depression History of anxiety History of restless legs syndrome Emphysema of lung History of erectile dysfunction Home Medications ?Medication ?Instructions ?Recorded ?Last Taken ?Type aspirin 81 mg tablet,delayed 81 mg PO DAILY 08/06/18 01/19/25 History release (Adult Aspirin Regimen) diazepam 2 mg tablet 2 mg PO TID PRN PRN Vertigo #10 03/12/22 01/19/25 Rx TABLETS Disability Placard #1 ea 03/16/23 Unknown Rx furosemide 40 mg tablet 40 mg PO DAILY #90 tabs 04/04/23 01/19/25 Rx montelukast 10 mg tablet 10 mg PO QPM #90 tabs 03/18/24 01/19/25 Rx atorvastatin 40 mg tablet 40 mg PO DAILY #90 tabs 03/30/24 01/19/25 Rx dutasteride 0.5 mg capsule 0.5 mg PO DAILY #90 caps 09/20/24 01/19/25 Rx albuterol sulfate 2.5 mg/3 mL 2.5 mg (3 mL) inhalation Q4H PRN 10/07/24 01/20/25 Rx (0.083 %) solution for nebulization Sob &/Or Wheezing #180 mL albuterol sulfate 90 mcg/actuation 2 inh inhalation Q4H PRN shortness 10/28/24 01/20/25 Rx aerosol inhaler (Ventolin HFA) of breath or wheezing #8.5 grams pramipexole 0.25 mg tablet 0.25 mg PO QHS #90 tabs 01/08/25 01/19/25 Rx budesonide 160 mcg-glycopyr 9 2 inh inhalation BID 01/20/25 01/20/25 History mcg-formot 4.8 mcg/actuation HFA inhaler (Breztri Aerosphere) isosorbide mononitrate 30 mg 15 mg (1/2 x 30 mg) PO DAILY #45 01/23/25 Unknown Rx tablet,extended release 24 hr tabs alfuzosin 10 mg tablet,extended 10 mg PO DAILY #90 tabs 02/05/25 Unknown Rx release 24 hr amlodipine 10 mg tablet 10 mg PO DAILY #90 tabs 02/05/25 Unknown Rx cetirizine 10 mg tablet 10 mg PO QHS #90 tabs 02/20/25 Unknown Rx gabapentin 400 mg capsule 400 mg PO TID #90 caps 02/20/25 Unknown Rx trazodone 50 mg tablet See Rx Instructions .Route 02/20/25 Unknown Rx .COMPLEX #90 tabs dupilumab 300 mg/2 mL subcutaneous 300 mg (2 mL) subcut Q2W #2 mL 02/21/25 Unknown Rx pen injector (Dupixent) dupilumab 300 mg/2 mL subcutaneous 600 mg (4 mL) subcut ONCE #4 mL 02/21/25 Unknown Rx pen injector (Dupixent) levofloxacin 750 mg tablet 750 mg PO Q24H 7 days #7 tabs 02/21/25 Unknown Rx prednisone 10 mg tablet 10 mg PO QDAY 12 days #30 tabs 02/21/25 Unknown Rx Allergy/AdvReac Type Severity Reaction Status Date / Time No Known Allergies Allergy Verified 02/21/25 11:36 Family History Mother Cancer leukemia Father Heart disease Myocardial infarction Sister COPD (chronic obstructive pulmonary disease) Brother COPD (chronic obstructive pulmonary disease) Cancer liver Surgical History History of open reduction and internal fixation (ORIF) procedure S/P pericardiocentesis (08/01/18) Presence of stent in coronary artery (08/01/18) History of ankle surgery (~2008) History of colonoscopy Social History Smoking Status: Former smoker quit date: 05/18/01 Tobacco: How many years used: 40 alcohol intake: former details: 2000 substance use type: former substance user Date of last use: marijuana currently, other drugs quit in 2008, marijuana, crack/cocaine, hallucinogens and club/exhibit designer drugs caffeine: Yes Type: coffee Number of servings: 2 what type of physical activity do you participate in: none ROS ROS ED ROS Narrative Constitutional: Denies any headache, lightness, dizziness, fevers, chills Eyes: Denies double vision Cardiovascular: Denies chest pain or palpitations complains of near syncope as noted above Respiratory: Denies coughing wheezing shortness of breath Abdomen: Denies abdominal pain nausea vomit diarrhea : Denies any urinary symptoms Neurological: Denies any numbness, weeks, tingling Musculoskeletal: Denies back pain Skin: Denies any rashes or lesions EXAM Physical Exam Narrative Exam Narrative: General: Patient was lying in bed rest comfortably did not appear to be in acute distress Head: Atraumatic, normocephalic Eyes: PERRL bilaterally, EOMI bilaterally, no conjunctival injection noted Neck: Soft, supple, trachea midline Cardiovascular: Regular rate and rhythm Respiratory: Clear to auscultation bilaterally Abdomen: No tenderness to palpation Extremities: +5/5 strength in the bilateral lower extremities Neurological: Patient follow commands knew that he was at [facility] years 2024 Skin: Warm, dry, tact no rashes or lesions noted Const Vital Signs: 02/21/25 11:32 02/21/25 11:41 02/21/25 12:50 Temperature 97.4 F L 97.8 F Temperature Source Oral Oral Pulse Rate 65 69 Pulse Rate [Lying] Pulse Rate [Sitting (for 1 minute prior to obtaining)] Pulse Rate [Standing (for 1 minute prior to obtaining)] Respiratory Rate 20 H 20 H Respiratory Pattern Normal Blood Pressure 113/60 113/62 Blood Pressure [Lying] Blood Pressure [Sitting (for 1 minute prior to obtaining)] Blood Pressure [Standing (for 1 minute prior to obtaining)] Blood Pressure Mean 77 79 Blood Pressure Mean [Lying] Blood Pressure Mean [Sitting (for 1 minute prior to obtaining)] Blood Pressure Mean [Standing (for 1 minute prior to obtaining)] Pulse Ox 96 100 Oxygen Delivery Method Nasal Cannula Room Air Oxygen Flow Rate (L/min) 2 02/21/25 12:52 02/21/25 12:55 02/21/25 15:00 Temperature 97.5 F L Temperature Source Oral Pulse Rate 70 Pulse Rate [Lying] 67 Pulse Rate [Sitting (for 1 minute prior to obtaining)] 67 Pulse Rate [Standing (for 1 minute prior to obtaining)] 77 Respiratory Rate 22 H Respiratory Pattern Blood Pressure 139/68 H Blood Pressure [Lying] 113/62 Blood Pressure [Sitting (for 1 minute prior to obtaining)] 114/74 Blood Pressure [Standing (for 1 minute prior to obtaining)] 107/62 Blood Pressure Mean 91 Blood Pressure Mean [Lying] 79 Blood Pressure Mean [Sitting (for 1 minute prior to obtaining)] 87 Blood Pressure Mean [Standing (for 1 minute prior to obtaining)] 77 Pulse Ox 95 Oxygen Delivery Method Room Air Room Air Oxygen Flow Rate (L/min) MDM MDM MDM Narrative Medical decision making narrative: Patient is a 74-year-old male who presents to the emergency department the 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 On the differential diagnose includes but not limited to dehydration, orthostatic hypotension, vasovagal syncope/near syncope, ACS. Once workup is obtained and reviewed he will be reevaluated. Orthostatic vital signs were obtained and are negative. Patient CBC reviewed and was largely unremarkable white blood count normal at 9.4, hemoglobin stable at 14.5, platelet count was noted be normal at 254. Patient sodium is 137, potassium normal 4.5, creatinine was 0.99. Patient's troponin was 22 with a delta troponin of 21 proBNP normal at 263. Patient's EKG was reviewed showed sinus rhythm with a rate of 63 bpm with a OR interval 146 evidence of right bundle branch block. This was compared to EKG from 01/28/2025 and is largely unchanged. Patient's chest x-ray reviewed and showed emphysema mild scarring at the lung bases. Patient ambulated well here in the emergency department felt his baseline no hypoxia no tachycardia. He would like to go home at this point in time he was advised to ensure that he eats when he gets home and stays well-hydrated. He is vies follow-up his doctors outpatient and return with worsening symptoms or concerns. He is agreeable this plan all course concerns answered he was discharged home in stable condition. Lab Data Labs: Laboratory Results - last 24 hr 02/21/25 02/21/25 12:00 14:10 WBC 9.4 RBC 4.96 Hgb 14.5 Hct 43.0 MCV 86.7 MCH 29.2 MCHC 33.7 RDW Std Deviation 43.8 RDW Coeff of Michelle 13.7 Plt Count 254 MPV 9.8 Immature Gran % (Auto) 0.600 Neut % (Auto) 80.8 H Lymph % (Auto) 6.5 L [place] % (Auto) 10.1 H Eos % (Auto) 1.4 Baso % (Auto) 0.6 Absolute Neuts (auto) 7.6 Absolute Lymphs (auto) 0.61 L Nucleated RBC % 0 Sodium 137 Potassium 4.5 Chloride 105 Carbon Dioxide 22.2 Anion Gap 10 BUN 20 H Creatinine 0.99 Estim Creat Clear Calc 62.37 Est GFR (MDRD) Non-Af 80 BUN/Creatinine Ratio 20.5 H Glucose 114 H Calcium 9.6 Troponin T High Sens 22 Troponin T Hi Sens 2 Hr 21 NT pro BNP II 263 Radiography Diagnostic Testing: Clinical Impression(s) from Imaging Studies Chest X-Ray 02/21/25 12:52 IMPRESSION: Emphysema. Mild scarring at the lung bases. Reading Location: [facility] Discharge Plan Triage Chief Complaint: Syncope ED Provider: Cal Eagle Dx/Rx/DC Orders Clinical Impression: Near syncope, Essential hypertension, Coronary artery disease, Emphysema of lung Prescriptions: No Action aspirin [Adult Aspirin Regimen] 81 mg tablet,delayed release (DR/EC) 81 mg PO DAILY Dupixent Pen 300 mg/2 mL pen injector 600 mg subcut ONCE Qty: 4 0RF Rx Instructions: as a single dose Dupixent Pen 300 mg/2 mL pen injector 300 mg subcut Q2W Qty: 2 11RF prednisone 10 mg tablet 10 mg PO QDAY 12 Days Qty: 30 0RF Rx Instructions: take 4 tabs for three days, then 3 tabs for three days, then 2 tabs for three days, then 1 tab for 3 days levofloxacin 750 mg tablet 750 mg PO Q24H 7 Days Qty: 7 0RF diazepam [diazepam] 2 MG tablet 2 mg PO TID PRN PRN (Reason: Vertigo) Qty: 10 0RF Breztri Aerosphere 160-9-4.8 mcg/actuation HFA aerosol inhaler 2 inh inhalation BID (DME) Disability Placard See Rx Instructions .ROUTE .MEDSUPPLY Qty: 1 0RF Rx Instructions: Expires in 5 years furosemide 40 mg tablet 40 mg PO DAILY Qty: 90 3RF montelukast 10 mg tablet 10 mg PO QPM Qty: 90 1RF atorvastatin 40 mg tablet 40 mg PO DAILY Qty: 90 3RF dutasteride 0.5 mg capsule 0.5 mg PO DAILY Qty: 90 1RF albuterol sulfate 2.5 mg /3 mL (0.083 %) solution for nebulization 2.5 mg INHALATION Q4H PRN (Reason: Sob &/Or Wheezing) Qty: 180 3RF albuterol sulfate [Ventolin HFA] 90 mcg/actuation HFA aerosol inhaler 2 inh inhalation Q4H PRN (Reason: shortness of breath or wheezing) Qty: 8.5 11RF pramipexole 0.25 mg tablet 0.25 mg PO QHS Qty: 90 1RF isosorbide mononitrate 30 mg tablet extended release 24 hr 15 mg PO DAILY Qty: 45 3RF amlodipine 10 mg tablet 10 mg PO DAILY Qty: 90 1RF alfuzosin 10 mg tablet extended release 24 hr 10 mg PO DAILY Qty: 90 1RF Patient Comments: pt states he takes something for his prostate but unsure what the medication is called. gabapentin 400 mg capsule 400 mg PO TID Qty: 90 1RF Patient Comments: pt states he only takes it once daily cetirizine 10 mg tablet 10 mg PO QHS Qty: 90 1RF trazodone 50 mg tablet See Rx Instructions .ROUTE .COMPLEX Qty: 90 1RF Dose Instruction: take 1 tablet by mouth at bedtime if needed Patient Comments: pt states he takes 1/2 of 50mg tablet Rx Instructions: take 1 tablet by mouth at bedtime if needed Primary Care Provider: Sharon Osorio Referrals: Sharon Osorio MD [Primary Care Provider, Internal Medicine] Activity Restrictions/Additional Instructions: Your blood work did not show any acute findings here today. Follow-up your doctor in outpatient setting and return with worsening symptoms or other concerns Print Language: [place] Disposition Disposition: Home, Self Care
[2025-02-21 14:52] LABS: Troponin T High Sens 2 HR 21 ng/L (<=22)
[2025-02-21 15:00] VITALS: BP 139/68; PULSE 70; RESP 22; TEMP 36.4; O2SAT 95
[2025-02-21 15:18] VITALS: BP 139/68; PULSE 70; RESP 22; TEMP 36.4; O2SAT 95
== END 2025-02-21 15:23 | disposition home or self-care (01) ==
PROVIDERS: Emergency Provider Emergency Medicine; PCP Internal Medicine; Visit Provider Emergency Medicine
DX: R42 Dizziness and giddiness (principal); J43.9 Emphysema, unspecified; E11.9 Type 2 diabetes mellitus without complications; I10 Essential (primary) hypertension; I25.10 Atherosclerotic heart disease of native coronary artery without angina pectoris; Z87.891 Personal history of nicotine dependence; E78.5 Hyperlipidemia, unspecified; K21.9 Gastro-esophageal reflux disease without esophagitis; Z79.85 Long-term (current) use of injectable non-insulin antidiabetic drugs; Z79.899 Other long term (current) drug therapy
CPT/HCPCS: 71046; 80048; 83880; 84484; 85025; 93005; 96360; 96361; 99285; A4216

== ENCOUNTER → 2025-02-21 | Outpatient (CLI) | payer MEDICARE, SELFPAY ==
--- NOTE | 2025-02-21 09:06 | ECHOCS_ITS ---
Reason For Study Reason For Study: SOB Procedure This was a 2D Doppler, Color Flow transthoracic echocardiogram. The study was technically difficult. Contrast injection was performed. Exam performed in department. Left Ventricle Normal LV size. Left ventricular systolic function is normal. The left ventricular ejection fraction is 60 %. Normal diastology for age. No regional wall motion abnormalities noted. Right Ventricle Normal RV size. Normal systolic function. Atria The left and right atria are normal. Mitral Valve Normal mitral valve. Tricuspid Valve Normal tricuspid valve. Mild (1+) tricuspid valve insufficiency. Pulmonary artery systolic pressure is 33 mmHg. Aortic Valve The aortic valve is not well visualized in the short axis view. There is no aortic stenosis. No aortic valve insufficiency. Pulmonic Valve The pulmonic valve is not well visualized. Great Vessels Normal sized aortic root. Pericardium/Pleural Epicardial fat. No pericardial effusion. Medication 22 gauge I.V. with prn adaptor inserted into right arm. Diluted definity 1.5ml given slow IV push to enhance endocardial definition. MMode/2D Measurements & Calculations LVIDd: 3.9 cm IVSd: 1.0 cm Ao root diam: 3.3 cm LVIDs: 2.4 cm LVPWd: 0.98 cm RVDd: 3.0 cm FS: 38.3 % LAV(MOD-bp): 49.5 ml LVAd ap4: 23.9 cm2 SV(MOD-sp4): 39.9 ml LAV(MOD-bp) Indexed: 26.4 ml/m2 LVLd ap4: 7.5 cm SI(MOD-sp4): 21.2 ml/m2 LAV(MOD-sp2): 47.4 ml EDV(MOD-sp4): 63.2 ml LAV(MOD-sp4): 46.1 ml EDV(sp4-el): 64.3 ml LVAs ap4: 12.9 cm2 LVLs ap4: 6.0 cm ESV(MOD-sp4): 23.3 ml ESV(sp4-el): 23.8 ml EF(MOD-sp4): 63.1 % EF(sp4-el): 63.0 % SV(sp4-el): 40.5 ml LA A4 area: 17.9 cm2 LA dimension(2D): 3.5 cm RA A4 area: 15.2 cm2 TAPSE: 1.9 cm Time Measurements MV dec time: 0.33 sec Doppler Measurements & Calculations MV E max wes: 60.5 cm/sec Lat Peak E' Wes: 6.3 cm/sec Med Peak E' Wes: 5.9 cm/sec MV A max wes: 93.9 cm/sec E/E' lat: 9.6 E/E' med: 10.2 MV E/A: 0.65 MV V2 max: 107.4 cm/sec MV P1/2t max wes: 81.5 cm/sec Ao V2 max: 123.8 cm/sec MV max P.6 mmHg MV P1/2t: 111.3 msec Ao max P.1 mmHg MV V2 mean: 50.6 cm/sec MV dec slope: 214.5 cm/sec2 Ao V2 mean: 92.1 cm/sec MV mean P.2 mmHg MVA(P1/2t): 2.0 cm2 Ao mean P.7 mmHg MV V2 VTI: 28.8 cm Ao V2 VTI: 26.3 cm AV (velocity ratio): 0.76 LV V1 max: 97.9 cm/sec PA V2 max: 152.2 cm/sec TR max wes: 274.5 cm/sec LV V1 max P.8 mmHg TR max P.1 mmHg LV V1 mean P.7 mmHg LV V1 mean: 60.9 cm/sec LV V1 VTI: 19.9 cm ECHO/Echo Complete W/ Contrast Interpretation Summary The left ventricular ejection fraction is 60 %. Mild (1+) tricuspid valve insufficiency. Contrast injection was performed. Compared to prior study, there is no signific ant change. Ordering Physician: Leighann Simpson Referring Physician: Leighann Simpson Performed By: Ever Li RCS
== END | disposition home or self-care (01) ==
LOC: CVS 09:03
PROVIDERS: PCP Internal Medicine; Referring Provider Internal Medicine Cardiovascular Disease; Visit Provider Internal Medicine Cardiovascular Disease
DX: R06.02 Shortness of breath (principal); Z98.890 Other specified postprocedural states
CPT/HCPCS: 93306; Q9957; A4216; C8929

== ENCOUNTER → 2025-03-19 | Outpatient (CLI) | payer MEDICARE, MEDICAID, SELFPAY | END | disposition home or self-care (01) | LOC: LABSPEC 08:44 | PROVIDERS: PCP Internal Medicine; Referring Provider Nurse Practitioner Acute Care; Visit Provider Nurse Practitioner Acute Care | DX: R05.9 Cough, unspecified (principal) | CPT/HCPCS: 87070; 87077; 87186; 87205 ==